=== PATIENT | female | born 1945 | race Caucasian/White ===

== ENCOUNTER → 2019-08-09 11:38 | Outpatient (BNVA) | payer MEDICARE, MEDICAID, SELFPAY | PROVIDERS: Family Provider Internal Medicine; PCP Internal Medicine; Visit Provider Internal Medicine | DX: F03.90 Unspecified dementia, unspecified severity, without behavioral disturbance, psychotic disturbance, mood disturbance, and anxiety (principal); R30.0 Dysuria; K74.60 Unspecified cirrhosis of liver; J44.9 Chronic obstructive pulmonary disease, unspecified; K21.9 Gastro-esophageal reflux disease without esophagitis | CPT/HCPCS: 81001; 87077; 87086; 87186 ==

== ENCOUNTER 2019-11-30 12:03 | Inpatient (IN) | payer MEDICARE, MEDICAID, SELFPAY ==
[2019-11-30] VITALS (65 sets, daily range): BP systolic 83–140; BP diastolic 42–85; PULSE 79–109; RESP 18–22; TEMP 36.9–37.2; O2SAT 95–100; BMI 40.7
--- NOTE | 2019-11-30 12:19 | CT_ITS ---
WS: [id number] CT head wo con* [id number] REASON FOR EXAM: AMS IV CONTRAST ADMINISTERED: None. TOTAL EXAM DLP: 766.[address] scans at [facility] use at least one of these dose optimization techniques: automat ed exposure control; mA and/or kV adjustment per patient size (includes targeted exams where dose is matched to clinical indication); or iterative reconstruction. FINDINGS: The vertebral basilar arteries show heavy arteriosclerotic changes. The ventricles are dilated and there is effacement of the sylvian fissure and sulci throughout the ri ght and left brain. Posterior ventricle is also dilated. The ayesha and cerebellum appear to be normal. The calvarium show no abnormality. The paranasal sinuses are all normal. The mastoid air cells are normal. The orbits show no abnormalities. IMPRESSION: Moderate cerebral atrophy Arteriosclerotic changes of the vertebral basilar arteries.
--- NOTE | 2019-11-30 12:19 | ED_ITS ---
HPI - Altered Mental Status General: Chief Complaint: Altered Mental Status Stated Complaint: AMS/ POSSIBLE UTI Time Seen by Provider: 11/30/19 12:06 History of Present Illness: HPI narrative: 74-year-old female brought in by EMS last known normal per the family reported to EMS was last night she is usually up and around does most of her own things. From what EMS can gather she lives at home and her daughter is been checking in on her they are evidently mo ving back to this area. They feel like she has been having more forgetfulness and onset of dementia signs the last few weeks. She is usually reported to be O2 dependent on 24/7 oxygen EMS that the oxygen was off when they arrived but she is 94% on room air. She was altered on their arrival but would respond to verbal commands her temp was 99. She was laying on 2 soaked urine pads the only complaint they could get out of her at that initial evaluation was a complaint of back pain. They found her facial expressions and smoking pipe maker strength to be normal and there was no evidence or complaint of chest pain from the patient. On arrival here her oxygen sat is 95% on room air. The only thing I could get her to respond to to say that she was cold and she would repeat his reply negative to nearly all questions she did complain of some epigastric/supraumbilical abdominal discomfort. Otherwise I am not able to get really any good verbal history out of her she has a large number of medications which she looked at see the list. There is no family available at this time. A family member at the scene did relate that she has recurrent UTIs and has been treated multiple times. In her medicine bag that she has here I do not see any antibiotics. complaint: altered mental status and confusion Onset (ago): hour(s) (12) Review of Systems General: Reports: ROS unobtainable due to medical condition and ROS unobtainable due to mental status [facility] ED PFS: Medical History (Updated 11/30/19 @ 18:30 by Ana Lu MD) Cirrhosis of liver COPD (chronic obstructive pulmonary disease) Dementia without behavioral disturbance Diabetes mellitus Fibromyalgia Frailty GERD (gastroesophageal reflux disease) Hypertension Surgical History (Updated 11/30/19 @ 18:25 by Ana Lu MD) S/P cataract extraction S/P cholecystectomy Status post carpal tunnel release of both wrists Family History Other Cancer Diabetes Heart disease Social History Smoking and tobacco status: never smoked Alcohol intake: never Marital status: / History of recent travel: No Current gender identity: Female Physical Exam HENMT: COMMON NORMALS: normocephalic, atraumatic, hearing grossly normal bilaterally, external ears normal, EAC's normal and oropharynx normal HEAD & SCALP: normocephalic and atraumatic EXTERNAL EAR: Yes external ears normal EXTERNAL AUDITORY CANAL: EAC's normal Eye: COMMON NORMALS: Equal, round and reactive pupils present, conjunctivae normal and no scleral icterus CONJUNCTIVA: Yes conjunctivae normal PUPIL: Yes Equal, round and reactive pupils present Neck/C-Spine: COMMON NORMALS: full ROM, no lymphadenopathy, supple and no JVD Lymph: LYMPHATIC: no lymphadenopathy noted and no lymphedema noted Resp: COMMON NORMALS: normal respiratory effort, No retractions, No use of accessory muscles and clear to auscultation bilaterally AUSCULTATION: clear to auscultation bilaterally Cardio: COMMON NORMALS: no JVD, regular rate, regular rhythm and No murmurs present (Cardio) RATE: regular rate RHYTHM: regular rhythm GI: COMMON NORMALS: Soft to palpation and No hepatosplenomegaly present AUSCULTATION: Yes normoactive bowel sounds PALPATION: Yes Soft to palpation, Yes Tenderness to palpation present (GI) (Epigastric supraumbilical), No Guarding due to palpation present (GI) and Yes No hepatosplenomegaly present Extremity: COMMON NORMALS: normal to inspection, capillary refill normal, no clubbing, cyanosis or edema, no calf tenderness and no pedal edema Skin: COMMON NORMALS: no rashes or lesions noted GENERAL SKIN EXAM: no rashes or lesions noted Course Vital Signs: Vital signs: Vital Signs Temperature 98.5 F 11/30/19 12:04 Pulse Rate 79 11/30/19 17:48 Respiratory Rate 22 H 11/30/19 17:00 Blood Pressure 122/74 11/30/19 17:00 Pulse Oximetry 99 11/30/19 17:48 MDM - Altered Mental Status MDM Narrative: Medical decision making narrative: Abdomen was distended and somewhat tenderness we ordered a CT because of a creatinine oriented with out contrast radiology read is having fluid in the right lower quadrant unable to distinguish the appendix. She also has some changes around the right kidney this is more consistent with what we had expected. I called back Dr. Garcia and we consulted Dr. Flores. See his notes Dr. Lu also asked that we change the patient to a ICU patient which does seem appropriate and Zosyn was added in addition to the Rocephin she is had already been given. Discussed with Dr. Flores and he will come down see the patient in the emergency room Lab Data: Labs: Lab Results 11/30/19 11/30/19 11/30/19 Range/Units 12:20 12:38 12:45 WBC (4.0-10.0) 10^3/ uL RBC (4.1-5.3) 10^6/u L Hgb (11.5-15.3) g/dL Hct (37.0-47.0) % MCV (81-99) fL MCH (28.0-34.0) pg MCHC (30.0-36.0) g/dL RDW (12.1-15.1) % Plt Count (130-400) 10^3/c mm MPV (7.4-10.4) fL Neut % (Auto) % Lymph % (Auto) % Cowley % (Auto) % Eos % (Auto) % Baso % (Auto) % Neut # (Auto) (1.8-7.7) 10^3/u L Lymph # (Auto) (0.8-4.8) 10^3/u L Cowley # (Auto) (0.2-0.9) 10^3/u L Eos # (Auto) (0.0-0.8) 10^3/u L Baso # (Auto) (0.0-0.1) 10^3/u L Nucleated RBC % (a uto) % Nucleated RBCs # /100WBC Specimen Type Arterial Sample Site Brachial, left ABG pH 7.34 L (7.35-7.45) ABG pCO2 34.3 L (35-45) mmHg ABG pO2 67.2 L (80.0-100.0) mmH g ABG HCO3 18.5 L (22-26) mmol/L ABG O2 Saturation 94.1 ABG Base Excess -6.6 L (-2.0-2.0) mmol/ L Manoj Test Pos A-a O2 Gradient 37.8 H (5-10) mmHg Hematocrit 26.2 L (37-47) % Hgb O2 Saturation 91.6 L (95-100) % Carboxyhemoglobin 1.5 (0.4-20.1) %THgb Methemoglobin 1.2 (0.4-1.5) % Total Hemoglobin 8.5 L (12-16) g/dL Sodium 131.0 (131-143) mmol/L Potassium 4.5 (3.5-5.0) mmol/L Glucose 399.0 H (70-115) mg/dL Ionized Calcium 1.2 (1.1-1.4) mmol/L O2 Delivery Device Room air FiO2 21.0 % Visual Communications Instructor ID cak Chloride (98-107) mmol/L Carbon Dioxide (22-29) mmol/L Anion Gap (5-19) BUN (8-23) mg/dL Creatinine (0.5-0.9) mg/dL POC Glucose 410 (70-110) mg/dL Calculated Osmolal ity (285-295) mOsm/k g Lactate (0.5-2.2) mmol/L Calcium (8.5-10.5) mg/dL Total Bilirubin (0.15-1.2) mg/dL AST (0-32) U/L ALT (0-33) U/L Alkaline Phosphata se (35-105) IU/L Ammonia (11-51) umol/L Creatine Kinase (26-192) U/L Troponin T Baselin e (0-10) ng/mL Troponin T 120 Min jackson (0-10) ng/mL Delta Troponin T (0-10) ABS# Total Protein (6.6-8.7) g/dL Albumin (3.5-5.2) g/dL Globulin (1.3-4.6) g/dL Lipase (13-60) U/L Urine Color Brown (Yellow) Urine Appearance Cloudy (CLEAR) Urine pH 5 (5-7) Ur Specific Gravit y 1.025 (1.005-1.030) Urine Protein 2+ H (Negative) Urine Glucose (UA) 2+ (Normal) Urine Ketones Negative (Negative) Urine Blood 3+ H (Negative) Urine Nitrate Negative (Negative) Urine Bilirubin Neg (NEGATIVE) Urine Urobilinogen Norm (Negative) mg/dL Ur Leukocyte Roxie ase 2+ H (Negative) Urine RBC 40-50 H (0-2) /hpf Urine WBC 55-80 H (0-5) /hpf Ur Squamous Epith Cells 0-4 H (0-5) Amorphous Sediment 3+ Urine Bacteria 1+ H (NONE) Serum Ketones (Negative) 11/30/19 11/30/19 11/30/19 Range/Units 13:02 13:02 13:02 WBC 19.6 H (4.0-10.0) 10^3/ uL RBC 2.77 L (4.1-5.3) 10^6/u L Hgb 8.0 L (11.5-15.3) g/dL Hct 26.5 L (37.0-47.0) % MCV 95.7 (81-99) fL MCH 28.9 (28.0-34.0) pg MCHC 30.2 (30.0-36.0) g/dL RDW 16.1 H (12.1-15.1) % Plt Count 311 (130-400) 10^3/c mm MPV 9.6 (7.4-10.4) fL Neut % (Auto) 76.2 % Lymph % (Auto) 12.0 % Cowley % (Auto) 10.8 % Eos % (Auto) 0.1 % Baso % (Auto) 0.1 % Neut # (Auto) 14.9 H (1.8-7.7) 10^3/u L Lymph # (Auto) 2.4 (0.8-4.8) 10^3/u L Cowley # (Auto) 2.1 H (0.2-0.9) 10^3/u L Eos # (Auto) 0.0 (0.0-0.8) 10^3/u L Baso # (Auto) 0.0 (0.0-0.1) 10^3/u L Nucleated RBC % (a uto) 0 % Nucleated RBCs # 0.0 /100WBC Specimen Type Sample Site ABG pH (7.35-7.45) ABG pCO2 (35-45) mmHg ABG pO2 (80.0-100.0) mmH g ABG HCO3 (22-26) mmol/L ABG O2 Saturation ABG Base Excess (-2.0-2.0) mmol/ L Manoj Test A-a O2 Gradient (5-10) mmHg Hematocrit (37-47) % Hgb O2 Saturation (95-100) % Carboxyhemoglobin (0.4-20.1) %THgb Methemoglobin (0.4-1.5) % Total Hemoglobin (12-16) g/dL Sodium 127 L (131-143) mmol/L Potassium 4.6 (3.5-5.0) mmol/L Glucose 426 H (70-115) mg/dL Ionized Calcium (1.1-1.4) mmol/L O2 Delivery Device FiO2 % Visual Communications Instructor ID Chloride 98 (98-107) mmol/L Carbon Dioxide 18 L (22-29) mmol/L Anion Gap 15.6 (5-19) BUN 44 H (8-23) mg/dL Creatinine 2.0 H (0.5-0.9) mg/dL POC Glucose (70-110) mg/dL Calculated Osmolal ity 280 L (285-295) mOsm/k g Lactate 1.3 (0.5-2.2) mmol/L Calcium 9.0 (8.5-10.5) mg/dL Total Bilirubin 0.7 (0.15-1.2) mg/dL AST 24 (0-32) U/L ALT 10 (0-33) U/L Alkaline Phosphata se 109 H (35-105) IU/L Ammonia (11-51) umol/L Creatine Kinase 15 L (26-192) U/L Troponin T Baselin e (0-10) ng/mL Troponin T 120 Min jackson (0-10) ng/mL Delta Troponin T (0-10) ABS# Total Protein 7.8 (6.6-8.7) g/dL Albumin 3.1 L (3.5-5.2) g/dL Globulin 4.7 H (1.3-4.6) g/dL Lipase 19 (13-60) U/L Urine Color (Yellow) Urine Appearance (CLEAR) Urine pH (5-7) Ur Specific Gravit y (1.005-1.030) Urine Protein (Negative) Urine Glucose (UA) (Normal) Urine Ketones (Negative) Urine Blood (Negative) Urine Nitrate (Negative) Urine Bilirubin (NEGATIVE) Urine Urobilinogen (Negative) mg/dL Ur Leukocyte Roxie ase (Negative) Urine RBC (0-2) /hpf Urine WBC (0-5) /hpf Ur Squamous Epith Cells (0-5) Amorphous Sediment Urine Bacteria (NONE) Serum Ketones (Negative) 11/30/19 11/30/19 11/30/19 Range/Units 13:02 13:02 13:02 WBC (4.0-10.0) 10^3/ uL RBC (4.1-5.3) 10^6/u L Hgb (11.5-15.3) g/dL Hct (37.0-47.0) % MCV (81-99) fL MCH (28.0-34.0) pg MCHC (30.0-36.0) g/dL RDW (12.1-15.1) % Plt Count (130-400) 10^3/c mm MPV (7.4-10.4) fL Neut % (Auto) % Lymph % (Auto) % Cowley % (Auto) % Eos % (Auto) % Baso % (Auto) % Neut # (Auto) (1.8-7.7) 10^3/u L Lymph # (Auto) (0.8-4.8) 10^3/u L Cowley # (Auto) (0.2-0.9) 10^3/u L Eos # (Auto) (0.0-0.8) 10^3/u L Baso # (Auto) (0.0-0.1) 10^3/u L Nucleated RBC % (a uto) % Nucleated RBCs # /100WBC Specimen Type Sample Site ABG pH (7.35-7.45) ABG pCO2 (35-45) mmHg ABG pO2 (80.0-100.0) mmH g ABG HCO3 (22-26) mmol/L ABG O2 Saturation ABG Base Excess (-2.0-2.0) mmol/ L Manoj Test A-a O2 Gradient (5-10) mmHg Hematocrit (37-47) % Hgb O2 Saturation (95-100) % Carboxyhemoglobin (0.4-20.1) %THgb Methemoglobin (0.4-1.5) % Total Hemoglobin (12-16) g/dL Sodium (131-143) mmol/L Potassium (3.5-5.0) mmol/L Glucose (70-115) mg/dL Ionized Calcium (1.1-1.4) mmol/L O2 Delivery Device FiO2 % Visual Communications Instructor ID Chloride (98-107) mmol/L Carbon Dioxide (22-29) mmol/L Anion Gap (5-19) BUN (8-23) mg/dL Creatinine (0.5-0.9) mg/dL POC Glucose (70-110) mg/dL Calculated Osmolal ity (285-295) mOsm/k g Lactate (0.5-2.2) mmol/L Calcium (8.5-10.5) mg/dL Total Bilirubin (0.15-1.2) mg/dL AST (0-32) U/L ALT (0-33) U/L Alkaline Phosphata se (35-105) IU/L Ammonia 34 (11-51) umol/L Creatine Kinase (26-192) U/L Troponin T Baselin e 39 H (0-10) ng/mL Troponin T 120 Min jackson (0-10) ng/mL Delta Troponin T (0-10) ABS# Total Protein (6.6-8.7) g/dL Albumin (3.5-5.2) g/dL Globulin (1.3-4.6) g/dL Lipase (13-60) U/L Urine Color (Yellow) Urine Appearance (CLEAR) Urine pH (5-7) Ur Specific Gravit y (1.005-1.030) Urine Protein (Negative) Urine Glucose (UA) (Normal) Urine Ketones (Negative) Urine Blood (Negative) Urine Nitrate (Negative) Urine Bilirubin (NEGATIVE) Urine Urobilinogen (Negative) mg/dL Ur Leukocyte Roxie ase (Negative) Urine RBC (0-2) /hpf Urine WBC (0-5) /hpf Ur Squamous Epith Cells (0-5) Amorphous Sediment Urine Bacteria (NONE) Serum Ketones Negative (Negative) 11/30/19 11/30/19 Range/Units 14:33 15:14 WBC (4.0-10.0) 10^3/ uL RBC (4.1-5.3) 10^6/u L Hgb (11.5-15.3) g/dL Hct (37.0-47.0) % MCV (81-99) fL MCH (28.0-34.0) pg MCHC (30.0-36.0) g/dL RDW (12.1-15.1) % Plt Count (130-400) 10^3/c mm MPV (7.4-10.4) fL Neut % (Auto) % Lymph % (Auto) % Cowley % (Auto) % Eos % (Auto) % Baso % (Auto) % Neut # (Auto) (1.8-7.7) 10^3/u L Lymph # (Auto) (0.8-4.8) 10^3/u L Cowley # (Auto) (0.2-0.9) 10^3/u L Eos # (Auto) (0.0-0.8) 10^3/u L Baso # (Auto) (0.0-0.1) 10^3/u L Nucleated RBC % (a uto) % Nucleated RBCs # /100WBC Specimen Type Sample Site ABG pH (7.35-7.45) ABG pCO2 (35-45) mmHg ABG pO2 (80.0-100.0) mmH g ABG HCO3 (22-26) mmol/L ABG O2 Saturation ABG Base Excess (-2.0-2.0) mmol/ L Manoj Test A-a O2 Gradient (5-10) mmHg Hematocrit (37-47) % Hgb O2 Saturation (95-100) % Carboxyhemoglobin (0.4-20.1) %THgb Methemoglobin (0.4-1.5) % Total Hemoglobin (12-16) g/dL Sodium (131-143) mmol/L Potassium (3.5-5.0) mmol/L Glucose (70-115) mg/dL Ionized Calcium (1.1-1.4) mmol/L O2 Delivery Device FiO2 % Visual Communications Instructor ID Chloride (98-107) mmol/L Carbon Dioxide (22-29) mmol/L Anion Gap (5-19) BUN (8-23) mg/dL Creatinine (0.5-0.9) mg/dL POC Glucose 430 (70-110) mg/dL Calculated Osmolal ity (285-295) mOsm/k g Lactate (0.5-2.2) mmol/L Calcium (8.5-10.5) mg/dL Total Bilirubin (0.15-1.2) mg/dL AST (0-32) U/L ALT (0-33) U/L Alkaline Phosphata se (35-105) IU/L Ammonia (11-51) umol/L Creatine Kinase (26-192) U/L Troponin T Baselin e (0-10) ng/mL Troponin T 120 Min jackson 36.59 H (0-10) ng/mL Delta Troponin T -2.41 L (0-10) ABS# Total Protein (6.6-8.7) g/dL Albumin (3.5-5.2) g/dL Globulin (1.3-4.6) g/dL Lipase (13-60) U/L Urine Color (Yellow) Urine Appearance (CLEAR) Urine pH (5-7) Ur Specific Gravit y (1.005-1.030) Urine Protein (Negative) Urine Glucose (UA) (Normal) Urine Ketones (Negative) Urine Blood (Negative) Urine Nitrate (Negative) Urine Bilirubin (NEGATIVE) Urine Urobilinogen (Negative) mg/dL Ur Leukocyte Roxie ase (Negative) Urine RBC (0-2) /hpf Urine WBC (0-5) /hpf Ur Squamous Epith Cells (0-5) Amorphous Sediment Urine Bacteria (NONE) Serum Ketones (Negative) Discharge Plan Discharge Patient Disposition: Admitted As Inpatient Admit Provider: Ana Lu Clinical Impression: Acute pyelonephritis, Cirrhosis of liver, GERD (gastroesophageal reflux disease), Dementia without behavioral disturbance, DM2 (diabetes mellitus, type 2), Sepsis, Hyponatremia Condition: Stable Coding Level of Care Code ED Boat Dispatcher for Chg Fwd Exam Comprehensive
--- NOTE | 2019-11-30 12:19 | XR_ITS ---
WS: [id number] XR chest 1V portable [id number] REASON FOR EXAM: dyspnea/cough FINDINGS: Elevation of the right hemidiaphragm. The heart is normal in size. Arteriosclerotic changes in the arch of the aorta. The lung mccormick are well aerated no pneumonia, pleural effusion, pulmonary edema, are pneumothorax. The hilum and apices normal. A scoliotic curve with degenerate changes convex to the right. XR/XR chest 1V portable [id number] IMPRESSION: Eventration of the right hemidiaphragm. Arteriosclerotic changes.
--- NOTE | 2019-11-30 12:19 | CT_ITS ---
WS: [id number] CT abdomen pelvis wo con [id number] REASON FOR EXAM: abd pain IV CONTRAST ADMINISTERED: No contrast was given. The lower lung mccormick show mild infiltrates ; The liver was small no lesions are seen in the liver. The right kidney shows a dilated pelvis and the ureters dilated partially and appears to be peritendinitis involving the right lower quadrant of the abdomen we with suspected ruptured appendix producing these changes. A definite appendix is not well seen. The left abdomen shows only minimal inflammatory changes. The descending colons were normal. A very small infantile uterus is seen The bladder slightly thickened wall The rectum was normal. In the upper abdomen the stomach, spleen, adrenal glands are all normal. Aorta inferior vena cava wer e normal. The left kidney appeared to be normal. TOTAL EXAM DLP: 1291.[address] scans at use at least one of these dose optimization techniques: automat ed exposure control; mA and/or kV adjustment per patient size (includes targeted exams where dose is matched to clinical indication); or iterative reconstruction. CT/CT abdomen pelvis wo con [id number] IMPRESSION: Suspect peritonitis in the right lower abdomen with a suspected ruptured append ix. The right kidney is partially obstructed in the mid ureter area by the inflamma tory changes versus pyelonephritis.
--- NOTE | 2019-11-30 12:20 | ECG_ITS ---
Measurements Intervals [place] Rate: 96 P: 48 SD: 152 QRS: -23 QRSD: 89 T: 29 QT: 356 QTc: 452 SINUS RHYTHM MODERATE VOLTAGE CRITERIA FOR LVH, CONSIDER NORMAL VARIANT [MEETS CRITERIA IN ONE ONE OF: R(aVL), S(V1), R(V5), R(V5/V6)+S(V1)] POSSIBLE ANTERIOR MYOCARDIAL INFARCTION , OF INDETERMINATE AGE [30 ms Q WAVE IN V3 V3/V4, OR R < 0.2 mV IN V4] No previous ECG available for comparison Electronically Signed On 11-30-2019 16:36:13 CDT by Gunnar Paredes M.D. [email or web address]
[2019-11-30 12:41] LABS: Add Urine Microscopic? YES; Bilirubin Urine Neg (NEGATIVE); Blood Urine 3+ (Negative); Glucose Urine UA 2+ (Normal); Ketones Urine Negative (Negative); Leukocyte Esterase Urine 2+ (Negative); Nitrate Urine Negative (Negative); Protein Urine 2+ (Negative); Specific Gravity, Urine 1.025 (1.005-1.030); Urine Appearance Cloudy (CLEAR); Urine Color Brown (Yellow); Urobilinogen Urine Norm (Negative); pH Urine 5 (5-7)
[2019-11-30 12:46] LABS: Amorphous Sediment Urine 3+; Bacteria Urine 1+; RBC Urine 40-50 /hpf (0-2); Squamous Epithelial Cell Urine 0-4 (0-5); WBC Urine 55-80 /hpf (0-5)
[2019-11-30 12:47] LABS: Add Urine Culture? Yes
[2019-11-30 12:50] LABS: ABG PCO2 34.3 mmHg (35-45); ABG PH Result 7.34 (7.35-7.45); Alveolar-Arterial Oxygen Gradi 37.8 mmHg (5-10); Arterial Blood Gas Hematocrit 26.2 % (37-47); Base Excess ABG -6.6 mmol/L (-2.0-2.0); Blood Gas Allen Test Pos; Blood Gas Sample Site Brachial, left; Blood Gas Sample Type Arterial; Carboxyhemoglobin 1.5 %THgb (0.4-20.1); HCO3 ABG 18.5 mmol/L (22-26); HGB O2 Sat 91.6 % (95-100); Ionized Calcium Level - ABG 1.2 mmol/L (1.1-1.4); Methemoglobin 1.2 % (0.4-1.5); Oxygen Device ROOM AIR; Oxygen Saturation ABG 94.1; PO2 ABG 67.2 mmHg (80.0-100.0); Potassium Level - ABG 4.5 mmol/L (3.5-5.0); Total Hemoglobin 8.5 g/dL (12-16)
[2019-11-30 12:50] LABS: Glucose Point of Care 410 mg/dL (70-110)
[2019-11-30 13:13] LABS: Basophils % 0.1 %; Eosinophils % 0.1 %; Hematocrit 26.5 % (37.0-47.0); Lymphocytes # 2.4 10^3/uL (0.8-4.8); Mean Corpuscular HGB Conc 30.2 g/dL (30.0-36.0); Mean Corpuscular Hemoglobin 28.9 pg (28.0-34.0); Mean Corpuscular Volume 95.7 fL (81-99); Mean Platelet Volume 9.6 fL (7.4-10.4); Monocytes # 2.1 10^3/uL (0.2-0.9); Monocytes % 10.8 %; Neutrophils # 14.9 10^3/uL (1.8-7.7); Neutrophils % 76.2 %; Nucleated Red Blood Cells % 0 %; Platelet Count 311 10^3/cmm (130-400); Red Blood Count 2.77 10^6/uL (4.1-5.3); Red Cell Distribution Width 16.1 % (12.1-15.1); White Blood Count 19.6 10^3/uL (4.0-10.0)
[2019-11-30] MEDS: cefTRIAXone 1,000 MG in sodium chloride 0.9% (plus) 50 ML 100 MG IV (13:14)
[2019-11-30 13:20] LABS: Ketone (Acetest) Serum Negative (Negative)
[2019-11-30 13:26] LABS: Lactate (Lactic Acid level) 1.3 mmol/L (0.5-2.2)
[2019-11-30 13:27] LABS: Ammonia 34 umol/L (11-51)
[2019-11-30 13:28] LABS: Alanine Aminotransferase 10 U/L (0-33); Albumin Level 3.1 g/dL (3.5-5.2); Alkaline Phosphatase 109 IU/L (35-105); Anion Gap 15.6 (5-19); Aspartate Amino Transferase 24 U/L (0-32); Blood Urea Nitrogen 44 mg/dL (8-23); Carbon Dioxide 18 mmol/L (22-29); Chloride 98 mmol/L (98-107); Creatine Phosphokinase 15 U/L (26-192); Globulin 4.7 g/dL (1.3-4.6); Glucose 426 mg/dL (65-115); Lipase 19 U/L (13-60); Osmolality Calculated 280 mOsm/kg (285-295); Potassium 4.6 mmol/L (3.5-5.1); Sodium 127 mmol/L (136-145); Total Bilirubin 0.7 mg/dL (0.15-1.2); Total Protein 7.8 g/dL (6.6-8.7)
[2019-11-30 13:29] LABS: Troponin(5th) Baseline 39 ng/mL (0-10)
[2019-11-30] MEDS: insulin regular-human 100 units/1 mL 10 UNIT IVP ×2 (13:34→15:20)
--- NOTE | 2019-11-30 13:51 | PC.NURSE ---
pt placed on 2L supplemental oxygen via nasal cannula
--- NOTE | 2019-11-30 14:20 | ECG_ITS ---
Measurements Intervals [place] Rate: 97 P: 48 CA: 180 QRS: -32 QRSD: 92 T: 51 QT: 358 QTc: 455 SINUS RHYTHM LEFT AXIS DEVIATION [QRS AXIS < -30] MODERATE VOLTAGE CRITERIA FOR LVH, CONSIDER NORMAL VARIANT [MEETS CRITERIA IN ONE OF: R(aVL), S(V1), R(V5), R(V5/V6)+S(V1)] POSSIBLE ANTERIOR MYOCARDIAL INFARCTION , OF INDETERMINATE AGE [30 ms Q WAVE IN V3/V4, OR R < 0.2 mV IN V4] No previous ECG available for comparison Electronically Signed On 11-30-2019 16:37:23 CDT by Gunnar Paredes M.D. [email or web address]
[2019-11-30 14:37] LABS: Glucose Point of Care 430 mg/dL (70-110)
[2019-11-30] MEDS: piperacillin-tazobactam 3.375 GM in sodium chloride 0.9% (plus) 50 ML IV (15:18)
[2019-11-30 15:42] LABS: Troponin 5 2HR 36.59 ng/mL (0-10); Troponin 5 2HR Delta -2.41 ABS# (0-10)
--- NOTE | 2019-11-30 16:27 | P.CONIM_ITS ---
Providers/Reason For Consult Consulting Physican/Specialty*: General Surgery Ben Flores MD Reason for Consult*: Abdominal pain with right pyelonephritis, possible appendicitis by CT. Primary Care Provider: Pilo Alexis MD History of Present Illness History of Present Illness Melba Newman is a 74 year old female who was brought into the emergency room by EMS today for what sounds to be some mental status changes. The patient apparently lives at home by herself. Her daughter has been checking in on her intermittently and feels like her forgetfulness and dementia has been worsening over the past several weeks. The patient tells me that she was brought in today because I was sick. She denies any pain. When asked if she had been having any urinary symptoms she indicated that she has not urinated recently, although she apparently was found at home with urinary incontinence and there were 2 soaked urine pads underneath her. In the emergency room, the patient was found to have right-sided pyelonephritis by CT, but the radiologist was also apparently concerned that there may be an inflammatory process otherwise in the right lower quadrant and raised the possibility of an appendicitis. In looking through a previous office note by Dr. Alexis, it appears the patient was admitted to a facility in [place] about a month and a half ago with pyelonephritis. Review of Systems General: Reports: 10 or more systems reviewed and unremarkable except in HPI and below (Unable to obtain completely due to the patient's altered mental status) Meds/Allergies Home Medications and Allergies Home Medications Medication Instructions Recorded Confirmed Last Taken Type duloxetine 30 mg capsule,delayed 60 mg PO DAILY cap 06/23/19 11/30/19 Unknown History release omeprazole 20 mg capsule,delayed 20 mg PO DAILY #30 cap 09/21/19 11/30/19 Unknown Rx release albuterol sulfate 90 mcg/actuation 2 puff INHALATION Q6H PRN #8.5 gm 09/28/19 11/30/19 Unknown Rx aerosol inhaler allopurinol 100 mg tablet 100 mg PO DAILY #30 tab 09/28/19 11/30/19 Unknown Rx canagliflozin 300 mg tablet 300 mg PO QAM #30 tab 09/28/19 11/30/19 Unknown Rx levothyroxine 150 mcg capsule 150 mcg PO DAILY #30 cap 09/28/19 11/30/19 Unknown Rx liraglutide 0.6 mg/0.1 mL (18 mg/3 1.8 mg SUBCUT Q24H #9 ml 09/28/19 11/30/19 Unknown Rx mL) subcutaneous pen injector oxybutynin chloride 5 mg tablet 5 mg PO DAILY #30 tab 09/28/19 11/30/19 Unknown Rx spironolactone 25 mg tablet 25 mg PO DAILY #30 tab 09/28/19 11/30/19 Unknown Rx ferrous sulfate 325 mg (65 mg 325 mg PO DAILY #30 tab 10/16/19 11/30/19 Unknown Rx iron) tablet insulin glargine 100 unit/mL 40 unit SUBCUT BID #10 ml 10/16/19 11/30/19 Unknown Rx subcutaneous solution pen needle, diabetic 31 gauge x #100 each 10/16/19 11/30/19 Unknown Rx 11/10 gabapentin 800 mg tablet 800 mg PO TID #90 tab 10/23/19 11/30/19 Unknown Rx metoprolol tartrate 50 mg tablet 12.5 mg PO BID #60 tab 11/10/19 11/30/19 Unknown Rx Adult Aspirin Regimen 81 mg PO DAILY 11/30/19 11/30/19 Unknown History Humalog KwikPen Insulin See Rx Instructions .ROUTE .COMPLEX 11/30/19 11/30/19 Unknown History Allergies Allergy/AdvReac Type Severity Reaction Status Date / Time celecoxib [From Celebrex] Allergy Intermediate confusion Verified 10/16/19 10:44 meperidine [From Demerol] Allergy Unknown Verified 10/16/19 10:44 theophylline Allergy Unknown Verified 10/16/19 10:44 PFSH Acute PFSH: Medical History (Updated 11/30/19 @ 16:35 by Ben Flores MD) Cirrhosis of liver COPD (chronic obstructive pulmonary disease) Dementia without behavioral disturbance GERD (gastroesophageal reflux disease) Hypertension Family History Other Cancer Diabetes Heart disease Social History Smoking and tobacco status: never smoked Alcohol intake: never Marital status: / History of recent travel: No Current gender identity: Female Vitals/I&O/Wt Last Vital Signs Temp 98.5 F 11/30/19 12:04 Pulse 100 11/30/19 14:36 Resp 18 11/30/19 14:36 BP 120/52 11/30/19 14:36 Pulse Ox 98 11/30/19 14:36 11/30/19 11/30/19 11/30/19 06:59 14:59 22:59 Intake Total 50 / 50 Balance 50 / 50 Weight last 48 hrs Weight 245 lb Physical Exam Narrative: EXAM NARRATIVE: The patient was encountered in her room in the emergency room. She keeps her eyes closed during the interview but tries to answer questions, although not always seemingly appropriately. There are no obvious carotid bruits. The lungs are clear anteriorly. The heart is regular but there is a systolic murmur best heard at the right upper sternal border. The abdomen is obese and reveals few bowel sounds but is soft. The patient does have more tenderness along the right side of her abdomen but no evidence of peritonitis. She seems to be most tender laterally and somewhat posteriorly on the right flank. No obvious masses are palpated. The extremities reveal no obvious edema. Urinary Catheter Management^: Chow: Cath Placed During This Visit: yes Urinary Catheter Date of Insertion: 11/30/19 Urinary Catheter Time of Insertion: 12:25 Data Micro: Micro: Microbiology 11/30/19 12:57 Blood Culture - Pr eliminary Blood [facility] 11/30/19 13:02 Blood Culture - Pr eliminary Blood SPE[facility]EN [facility] Imaging^: CT Abd/Pel: Radiologist's impression: CT abdomen/pelvis 11/30/2019 iMPRESSION: Suspect peritonitis in the right lower abdomen with a suspected ruptured appendix. The right kidney is partially obstructed in the mid ureter area by the inflammatory changes versus pyelonephritis. A&P Assessment and plan (1) Abdominal pain: I reviewed the CT. The patient's are consistent with right-sided pyelonephritis. I think I can visualize the appendix and I do not think the appendix is anything to do with her current presentation. She certainly does not have evidence of peritonitis that would make me think she needs to be in the operating room today. I will be happy to continue following the patient. We will see how she does on broad-spectrum antibiotics to start. Status: Acute (2) Abnormal CT of the abdomen: See above. Status: Acute Consult Attestations Medical Necessity Statement: See admitting service's notation. Coding Level of Care Code Acute Biomedical Equipment Specialist for [facility] Diagnoses Abdominal pain R10.[address] of the abdomen R93.5
--- NOTE | 2019-11-30 18:01 | PM.HP ---
Providers/Chief Complaint Admitting Physician: Ana Lu MD Primary Care Provider: Pilo Alexis MD Chief Complaint: AMS/ POSSIBLE UTI History of Present Illness Melba Newman is a 74 year old female with PMH DM on insulin, multiple medications including invokana with recent h/o UTI and pyelonephritis brought to the ER today with c/o AMS that was noted by family when they went in to check on her. No other history is available at this time and patient is unable to participate in history taking when seen at 3pm. Diagnostics in the ER are notable for leukocytosis, + UA, Annita with cr 3.0, tachycardia, CT abdomen with possible R side pyelopnephritis, BS 426 without anion gap, mild metabolic acidosis. There was suspicion for perforated appendicitis for which surgery consult has been obtained from ER Review of Systems General: Reports: ROS unobtainable due to mental status Medications/Allergies Home Medications Medication Instructions Recorded Confirmed Last Taken Type duloxetine 30 mg capsule,delayed 60 mg PO DAILY cap 06/23/19 11/30/19 Unknown History release omeprazole 20 mg capsule,delayed 20 mg PO DAILY #30 cap 09/21/19 11/30/19 Unknown Rx release albuterol sulfate 90 mcg/actuation 2 puff INHALATION Q6H PRN #8.5 gm 09/28/19 11/30/19 Unknown Rx aerosol inhaler allopurinol 100 mg tablet 100 mg PO DAILY #30 tab 09/28/19 11/30/19 Unknown Rx canagliflozin 300 mg tablet 300 mg PO QAM #30 tab 09/28/19 11/30/19 Unknown Rx levothyroxine 150 mcg capsule 150 mcg PO DAILY #30 cap 09/28/19 11/30/19 Unknown Rx liraglutide 0.6 mg/0.1 mL (18 mg/3 1.8 mg SUBCUT Q24H #9 ml 09/28/19 11/30/19 Unknown Rx mL) subcutaneous pen injector oxybutynin chloride 5 mg tablet 5 mg PO DAILY #30 tab 09/28/19 11/30/19 Unknown Rx spironolactone 25 mg tablet 25 mg PO DAILY #30 tab 09/28/19 11/30/19 Unknown Rx ferrous sulfate 325 mg (65 mg 325 mg PO DAILY #30 tab 10/16/19 11/30/19 Unknown Rx iron) tablet insulin glargine 100 unit/mL 40 unit SUBCUT BID #10 ml 10/16/19 11/30/19 Unknown Rx subcutaneous solution pen needle, diabetic 31 gauge x #100 each 10/16/19 11/30/19 Unknown Rx 5/16 gabapentin 800 mg tablet 800 mg PO TID #90 tab 10/23/19 11/30/19 Unknown Rx metoprolol tartrate 50 mg tablet 12.5 mg PO BID #60 tab 11/10/19 11/30/19 Unknown Rx Adult Aspirin Regimen 81 mg PO DAILY 11/30/19 11/30/19 Unknown History Humalog KwikPen Insulin See Rx Instructions .ROUTE .COMPLEX 11/30/19 11/30/19 Unknown History Allergies Allergy/AdvReac Type Severity Reaction Status Date / Time celecoxib [From Celebrex] Allergy Intermediate confusion Verified 10/16/19 10:44 meperidine [From Demerol] Allergy Unknown Verified 10/16/19 10:44 theophylline Allergy Unknown Verified 10/16/19 10:44 PFSH Acute PFSH: Medical History Cirrhosis of liver COPD (chronic obstructive pulmonary disease) Dementia without behavioral disturbance GERD (gastroesophageal reflux disease) Hypertension Surgical History (Updated 11/30/19 @ 18:25 by Ana Lu MD) S/P cataract extraction S/P cholecystectomy Status post carpal tunnel release of both wrists Family History Other Cancer Diabetes Heart disease Social History Smoking and tobacco status: never smoked Alcohol intake: never Marital status: / History of recent travel: No Current gender identity: Female Vitals/I&O/Wt Last Vital Signs Temp 98.5 F 11/30/19 12:04 Pulse 79 11/30/19 17:48 Resp 22 H 11/30/19 17:00 BP 122/74 11/30/19 17:00 Pulse Ox 99 11/30/19 17:48 11/30/19 11/30/19 11/30/19 06:59 14:59 22:59 Intake Total 50 / 50 50 / 100 Balance 50 / 50 50 / 100 Weight last 48 hrs Weight 111.13 kg Physical Exam Narrative: EXAM NARRATIVE: GEN: Lethargic, obtunded, wakes up to calling name but unable to answer any questions meaningfully HEENT: pupils B/L normal size and equally reactive CVS: S1S2 N, no added sounds RS: CTA B/L anteriorly Abd: Soft, nt/nd , bs+ PUBLIC HEALTH PROFESSOR: obtunded, does not follow commands but moving all extremities in bed EXT: multiple healed excoriations present over body . Urinary Catheter Management^: Chow: Cath Placed During This Visit: yes Urinary Catheter Date of Insertion: 11/30/19 Urinary Catheter Time of Insertion: 12:25 Data : 11/30/19 13:02 11/30/19 13:02 Micro: Microbiology 11/30/19 12:57 Blood Culture - Preliminary Blood SPECIMEN COLLECTED 11/30/19 13:02 Blood Culture - Preliminary Blood SPECIMEN COLLECTED A&P Assessment and plan (1) Sepsis: Status: Acute Qualifiers: Sepsis type: sepsis due to unspecified organism Sepsis acute organ dysfunction status: with acute organ dysfunction Severe sepsis acute organ dysfunction type: encephalopathy Qualified Code(s): A41.9 - Sepsis, unspecified organism; R65.20 - Severe sepsis without septic shock; G93.40 - Encephalopathy, unspecified (2) Pyelonephritis: Status: Acute (3) DM2 (diabetes mellitus, type 2): Status: Acute (4) Metabolic acidosis: Status: Acute (5) COPD (chronic obstructive pulmonary disease): Status: Acute (6) GERD (gastroesophageal reflux disease): Status: Acute (7) Cirrhosis of liver: Status: Acute (8) Dementia without behavioral disturbance: Status: Acute Additional A&P Information Admit to ICU 1. Sepsis: Meets criteria with tachycardia, leukocytosis, source of infection and encephalopathy Most likely appears to be related to pyelonephritis Ct abomen raising concern for possible appendicitis, surgical consult placed Empiric Zosyn for now, Per previous cx scanned in system from September, urine PCR appears to have been positive for E.fecalis, which is mostly amp-s. Note made of fungemia on PCP's note however no cx data available. Monitor closely for now, if starts to worsen in spite of zosyn or hemodynamically unstable, will add caspofungin + vancomycin empirically Blood cx currently sent and pending IVF NS @ 75cc/hr 2. Encephalopathy most likely secondary to sepsis CT head without acute findings 3. DM on insulin - on high dose sliding scale for now Normal anion gap metabolic acidosis, less likely to be DKA Continue to monitor 4. ANNITA 2/2 sepsis and pyelonephritis : IVF hydration, strict I/O monitoring 4. reported h/o dementia 5.H/o Cirrhosis 6. h/o HTN: hold antihypertensives for now given sepsis, monitor closely DVT ppx: lovenox Full code Attestations Medical Necessity Statement*: >2 midnight admission for sepsis with encephalopathy, ANNITA, need for iv abx and hydration Coding Level of Care Code Acute Child And Adolescent Psychiatrist for [facility] Fwd Diagnoses Sepsis A41.9; R65.20; G93.40 Sepsis type: sepsis due to unspecified organism Sepsis acute organ dysfunction status: with acute organ dysfunction Severe sepsis acute organ dysfunction type: encephalopathy Pyelonephritis N12 DM2 (diabetes mellitus, type 2) E11.9 Metabolic acidosis E87.2 COPD (chronic obstructive pulmonary disease) J44.9 GERD (gastroesophageal reflux disease) K21.9 Cirrhosis of liver K74.60 Dementia without behavioral disturbance F03.90
--- NOTE | 2019-11-30 18:20 | ECG_ITS ---
Measurements Intervals [place] Rate: 101 P: 50 WA: 171 QRS: -33 QRSD: 90 T: 60 QT: 354 QTc: 460 SINUS TACHYCARDIA LEFT AXIS DEVIATION [QRS AXIS < -30] MINIMAL VOLTAGE CRITERIA FOR LVH, CONSIDER NORMAL VARIANT POSSIBLE ANTERIOR MYOCARDIAL INFARCTION , OF INDETERMINATE AGE Compared to ECG 11/30/2019 16:26:00 Sinus rhythm no longer present Myocardial infarct finding still present Electronically Signed On 12-01-2019 18:08:21 CDT by Margarita Brian M.D. [email or web address]
[2019-11-30 18:37] LABS: Thyroid Stimulating Hormone 0.79 uIU/mL (0.27-4.20)
--- NOTE | 2019-11-30 18:44 | PC.NURSE ---
Attempted to call report at 1728 after waiting 2 hours for room to be ready. Attempted for the 2nd time at 181, was told the nurse taking report was not on the floor, told to call back in 5 minutes. Attempted for the third time at 1826 and told the nurse still had not returned to the floor and the room was not ready, that the nurse would call back to take report. Nurse called to take report at 1841 and was asked to waiting 5 minutes to bring patient as she needed time to document on her patients currently on the floor.
--- NOTE | 2019-11-30 18:59 | PC.NURSE ---
Pt taken to floor by previous shift nurse.
[2019-11-30] MEDS: sodium chloride 0.9% 1,000 ML 100 ML IV (19:34)
[2019-11-30 19:41] LABS: Glucose Point of Care 348 mg/dL (70-110)
[2019-11-30] MEDS: enoxaparin 30 mg/0.3 mL Syringe SUBCUT (19:46)
[2019-11-30 19:55] LABS: Troponin 5 6HR 31.13 ng/mL (0-10)
[2019-11-30 20:00] LABS: Troponin 5 6HR Delta -5.46 ng/L (0-12)
--- NOTE | 2019-11-30 21:22 | PC.NURSE ---
NURSE RESCHEDULED ZOSYN. TIME BASED OFF OF LAST DOSE GIVEN IN THE ER. NEXT DOSE DUE AT 0000 ON 12/01/2019 PER REQUEST FOR ZOSYN Q8H BY DR GUIDRY.
[2019-11-30 21:25] LABS: Glucose Point of Care 334 mg/dL (70-110)
--- NOTE | 2019-11-30 22:23 | PC.NURSE ---
urine drained from patton bag. looks like stool sedimentation in the urine. notified of findings.
[2019-11-30 23:20] LABS: Alanine Aminotransferase 10 U/L (0-33); Alkaline Phosphatase 101 IU/L (35-105); Aspartate Amino Transferase 26 U/L (0-32); Blood Urea Nitrogen 46 mg/dL (8-23); Calcium 9.3 mg/dL (8.5-10.5); Carbon Dioxide 17 mmol/L (22-29); Chloride 103 mmol/L (98-107); Glucose 232 mg/dL (65-115); Osmolality Calculated 277 mOsm/kg (285-295); Sodium 131 mmol/L (136-145); Total Bilirubin 0.6 mg/dL (0.15-1.2)
[2019-11-30 23:57] LABS: Add Urine Culture? Yes; Bacteria Urine 4+; Bilirubin Urine Neg (NEGATIVE); Blood Urine 3+ (Negative); Glucose Urine UA 2+ (Normal); Ketones Urine Negative (Negative); Leukocyte Esterase Urine 2+ (Negative); Nitrate Urine Negative (Negative); Protein Urine 2+ (Negative); RBC Urine >100 /hpf (0-2); Specific Gravity, Urine 1.025 (1.005-1.030); Urine Appearance Cloudy (CLEAR); Urine Color Brown (Yellow); Urobilinogen Urine Norm (Negative); WBC Urine >100 /hpf (0-5); pH Urine 5 (5-7)
[2019-12-01] VITALS (101 sets, daily range): BP systolic 75–147; BP diastolic 36–87; PULSE 95–117; RESP 16–24; TEMP 36.8–38.9; O2SAT 78–100
--- NOTE | 2019-12-01 00:43 | PC.NURSE ---
2320 at bedside. verbal order for new test from Chow to be sent to lab. nurse collected and sent to lab at 2337.
[2019-12-01] MEDS: piperacillin-tazobactam 3.375 GM in sodium chloride 0.9% (plus) 50 ML IV ×3 (01:01→16:51)
[2019-12-01] MEDS: acetaminophen 325 mg Tablet 650 MG PO (01:46)
--- NOTE | 2019-12-01 01:52 | PC.NURSE ---
patient woke up yelling that she needed to pee and wanted to get out of the bed. informed the patient that she had a catheter in her bladder and she could just go pee. patient continued to throw blankets off her and try to get out of bed. patient is confused on where she is. patient states that she is at her mom and dads house and that i am her daughter. nurse attempted to reoriented patient without success . nurse checked patients temperature. 101.2 auxiliary reading. Tylenol given per PRN order for fever. thick blanket removed and sheet left for patient comfort. will continue to monitor.
--- NOTE | 2019-12-01 03:08 | PC.NURSE ---
nurse entered room to patient yelling get me out of here now! patient had ripped IV out, pulling off her gown, and attempting to get out of bed. nurse attempted to calm patient down by reorienting patient to surroundings. patient is able to state that she is at the hospital, and thinks that hospital staff is her family. while starting a new IV patient yelled i am going to punch the shit out of you. nurse explained that patient needed IV so that she could get the medications she needed. patient stated i am going to call my nut sheller because they are not taking care of me. i am going to kyle the heck out of this place. nurse attempted to reorient the patient on the interventions being done to care for patient. patient was not able to comprehend what nurse was saying. called and updated on patient condition and IV being pulled out. verbal order for Zyprexa 10mg IM ONCE for patient safety.
[2019-12-01] MEDS: OLANZapine 10 mg VIAL IM (03:26)
[2019-12-01 05:26] LABS: Basophils % 0.2 %; Eosinophils # 0.1 10^3/uL (0.0-0.8); Eosinophils % 0.5 %; Hematocrit 23.3 % (37.0-47.0); Hemoglobin 7.1 g/dL (11.5-15.3); Lymphocytes # 2.5 10^3/uL (0.8-4.8); Lymphocytes % 17.3 %; Mean Corpuscular HGB Conc 30.5 g/dL (30.0-36.0); Mean Corpuscular Hemoglobin 29.2 pg (28.0-34.0); Mean Corpuscular Volume 95.9 fL (81-99); Mean Platelet Volume 9.5 fL (7.4-10.4); Monocytes # 1.8 10^3/uL (0.2-0.9); Monocytes % 12.3 %; Neutrophils # 10.1 10^3/uL (1.8-7.7); Neutrophils % 69.1 %; Nucleated Red Blood Cells % 0 %; Platelet Count 275 10^3/cmm (130-400); Red Blood Count 2.43 10^6/uL (4.1-5.3); Red Cell Distribution Width 16.6 % (12.1-15.1); White Blood Count 14.6 10^3/uL (4.0-10.0)
[2019-12-01 05:36] LABS: Alanine Aminotransferase 8 U/L (0-33); Albumin Level 2.7 g/dL (3.5-5.2); Alkaline Phosphatase 89 IU/L (35-105); Aspartate Amino Transferase 21 U/L (0-32); Blood Urea Nitrogen 45 mg/dL (8-23); Calcium 8.7 mg/dL (8.5-10.5); Carbon Dioxide 18 mmol/L (22-29); Chloride 103 mmol/L (98-107); Globulin 4.3 g/dL (1.3-4.6); Glucose 173 mg/dL (65-115); Osmolality Calculated 276 mOsm/kg (285-295); Sodium 132 mmol/L (136-145); Total Bilirubin 0.6 mg/dL (0.15-1.2)
[2019-12-01] MEDS: sodium chloride 0.9% 1,000 ML 100 ML IV (05:59)
[2019-12-01 06:05] LABS: Estmated Average Glucose 232; Hemoglobin A1C 9.7 % (4.0-6.0)
--- NOTE | 2019-12-01 07:43 | PM.PN ---
Subjective Subjective: Interval history: The patient denies any pain currently. She says she is thirsty. She was able to tell me that she was having lower abdominal pain before she came into the hospital but it is completely gone now. The patient says that her pain went away right away. Vitals/I&O/Wt Last Vital Signs Temp 98.8 F 12/01/19 04:15 Pulse 101 H 12/01/19 04:15 Resp 20 H 12/01/19 04:15 BP 89/42 12/01/19 04:15 Pulse Ox 94 12/01/19 04:15 11/30/19 12/01/19 12/01/19 22:59 06:59 14:59 Intake Total 65 / 1165 1050 / 1165 Output Total 175 / 825 650 / 825 Balance -110 / 340 400 / 340 Weight last 48 hrs Weight 245 lb Physical Exam Narrative: EXAM NARRATIVE: The patient seems much more alert today, but still is not answering all questions appropriately. She told me that my mother and me are the same age. Her abdomen reveals bowel sounds today and is soft. She has minimal tenderness and her exam is clearly improved. The patient is borderline tachycardic and her blood pressure is soft. Urinary Catheter Management^: Chow: Cath Placed During This Visit: yes Reason for Continuing Indwelling Catheter: Accurate Measurement of Urinary Output in Critically Ill Patients Urinary Catheter Date of Insertion: 11/30/19 Urinary Catheter Time of Insertion: 12:25 Data : 12/01/19 04:48 12/01/19 04:48 Micro: Microbiology 11/30/19 12:57 Blood Culture - Preliminary Blood SPECIMEN COLLECTED 11/30/19 13:02 Blood Culture - Preliminary Blood SPECIMEN COLLECTED A&P Assessment and plan (1) Anemia: The patient was anemic on presentation, but it has become more apparent with rehydration. Given the patient's borderline tachycardia and soft blood pressure, I think she would benefit from a transfusion. Will order 2 units of packed red blood cells. Status: Acute (2) Abdominal pain: Much improved. Continue broad-spectrum antibiotics. Status: Acute Attestations Medical Necessity Statement*: See admitting service's notation. Coding Level of Care Code Acute Water Main Installer Helper for [facility] Diagnoses Anemia D64.9 Abdominal pain R10.9
[2019-12-01 07:53] LABS: Glucose Point of Care 192 mg/dL (70-110)
[2019-12-01] MEDS: levothyroxine 150 mcg Tablet PO (09:21)
--- NOTE | 2019-12-01 10:11 | PC.RESP ---
Pulmonary Rehab information sent to patient.
--- NOTE | 2019-12-01 10:12 | USCV_ITS ---
Melba Newman Age: 74 Gender: F : 1945 Exam Date: 12/01/2019 14:30 Ordering Phys: Ana Lu MD Technologist: Harleen Medina Exam Location: [facility] [place] Indication: EST EF BP: 128 / 49 HR: 105 Rhythm: Sinus Technical Quality: Adequate MEASUREMENTS (Male / Female) Normal Values 2D ECHO LV Diastolic Diameter PLAX 4.3 cm 4.2 - 5.9 / 3.9 - 5.3 cm LV Systolic Diameter PLAX 3.0 cm LV Chamber Size 3.7 cm IVS Diastolic Thickness 1.2 cm 0.6 - 1.0 / 0.6 - 0.9 cm IVS Systolic Thickness 1.3 cm LVPW Diastolic Thickness 1.5 cm 0.6 - 1.0 / 0.6 - 0.9 cm LVPW Systolic Thickness 1.8 cm RV Chamber Size 2.6 cm LVOT Diameter 2.0 cm LV Ejection Fraction 2D Teich 59.3 % LV Ejection Fraction MOD 2C 70.3 % LV Ejection Fraction 2C AL 69.6 % LA Diameter 4.6 cm LA Width 3.3 cm LA Height 4.5 cm RA Width 3.0 cm RA Height 2.4 cm Aorta at Sinotubular Diameter 2.2 cm M-MODE LV Diastolic Diameter MM 5.7 cm 4.2 - 5.9 / 3.9 - 5.3 cm LV Systolic Diameter MM 3.5 cm LV Ejection Fraction MM Teich 69.5 % IVS Diastolic Thickness MM 1.1 cm 0.6 - 1.0 / 0.6 - 0.9 cm IVS Systolic Thickness MM 1.6 cm LVPW Diastolic Thickness MM 0.9 cm 0.6 - 1.0 / 0.6 - 0.9 cm LVPW Systolic Thickness MM 1.6 cm Aortic Annulus Diameter 3.1 cm LA Ao Ratio MM 1.5 MV E Point Septal Separation 0.3 cm DOPPLER AV Peak Velocity 197.0 cm/s LVOT Peak Velocity 134.0 cm/s AV Area Cont Eq vti 2.4 cm squared AV Area Cont Eq pk 2.2 cm squared MV Area PHT 6.5 cm squared Mitral E to A Ratio 4.4 MV E' Velocity 10.0 cm/s Mitral E to MV E' Ratio 11.2 Mitral E to LV E' Lateral Ratio 16.6 Mitral E to LV E' Septal Ratio 8.4 TR Peak Velocity 317.0 cm/s TR Peak Gradient 40.2 mmHg TV Peak E Velocity 70.0 cm/s Right Atrial Pressure 3.0 mmHg Pulmonary Artery Systolic Pressu 43.2 mmHg PV Peak Velocity 101.0 cm/s RV Acceleration Time 0.2 s RV Ejection Time 0.3 s RV AcT/ET 0.5 FINDINGS Left Ventricle Normal left ventricular cavity size. No regional wall motion abnormalities. Normal left ventricular systolic function. Left ventricular ejection fraction is estimated at 55 %. Grade II/IV diastolic dysfunction, moderately elevated filling pressures. Right Ventricle Normal right ventricular size. Moderate pulmonary hypertension, RVSP 43.2 mmHg. Right Atrium The right atrium is normal in size. Left Atrium The left atrium is normal in size. Mitral Valve Moderately thickened mitral valve. Moderate mitral annular calcification. No mitral valve stenosis. No mitral valve regurgitation. Aortic Valve Moderate aortic valve calcification. No aortic valve stenosis. No aortic valve regurgitation. Tricuspid Valve Structurally normal tricuspid valve without significant stenosis or regurgitation. Pulmonary artery systolic pressure is normal. Pulmonic Valve Structurally normal pulmonic valve without significant stenosis. There is no pulmonic regurgitation. Pericardium Normal pericardium without effusion. Aorta Normal ascending aorta dimension. CONCLUSIONS 1-Normal left ventricular cavity size. No regional wall motion abnormalities. Normal left ventricular systolic function. Left ventricular ejection fraction is estimated at 55 %. Grade II/IV diastolic dysfunction, moderately elevated filling pressures. 2-Moderately thickened mitral valve. Moderate mitral annular calcification. No mitral valve stenosis. No mitral valve regurgitation. 3-Moderate aortic valve calcification. No aortic valve stenosis. No aortic valve regurgitation. 4-Normal right ventricular size. Moderate pulmonary hypertension, RVSP 43.2 mmHg. 5-There is no pericardial effusion. 6-Right atrial pressure is around 5 mm of mercury. 7-There are no prior echocardiogram studies to compare. Sandeep Espinoza MD (Electronically Signed) Final Date: 01 December 2019 18:52 S
--- NOTE | 2019-12-01 10:20 | US_ITS ---
WS: [id number] Abdominal ultrasound, limited examination. HISTORY: Evaluate RIGHT hydronephrosis. COMPARISON: CT 11/30/2019. RIGHT kidney is normal size at 11.8 cm in length. There is moderate hydronephrosis, similar to the pr ior examination. No adjacent fluid collection. Unable to evaluate the bladder or the LEFT kidney due to patient discomfort. US/US abdomen limited [id number] IMPRESSION: Moderate hydronephrosis RIGHT kidney similar to the prior examination of 11/30/19.
[2019-12-01] MEDS: lactated ringers 1,000 ML 100 ML IV ×2 (11:00→18:55)
[2019-12-01 11:12] LABS: Glucose Point of Care 147 mg/dL (70-110)
--- NOTE | 2019-12-01 12:06 | PM.PN ---
Subjective Subjective: Interval history: Patient seen and examined this morning. No significant improvement in mental status. She continues to be confused and obtunded. White blood cell count at 14 from 19 yesterday. Hemoglobin at 7 from 8. Sodium improved with hydration to 132 today. Creatinine unchanged at 2.3. Glucose 173. Hemoglobin A1c 9.7. Troponin series negative. Blood pressure reviewed from overnight and early this morning shows 89/42 with significant tachycardia. Saturating 97% on 2 L/min nasal cannula. Unable to tell me if she is in any pain at this time but noted to be morning. Medications: Reviewed: Yes Vitals/I&O/Wt Last Vital Signs Temp 98.3 F 12/01/19 08:00 Pulse 106 H 12/01/19 08:00 Resp 18 12/01/19 08:00 BP 147/87 12/01/19 08:00 Pulse Ox 97 12/01/19 08:00 11/30/19 12/01/19 12/01/19 22:59 06:59 14:59 Intake Total 65 / 115 1050 / 1165 60 / 60 Output Total 175 / 175 650 / 825 Balance -110 / -60 400 / 340 60 / 60 Weight last 48 hrs Weight 111.13 kg Physical Exam Narrative: EXAM NARRATIVE: GEN: Awake, obtunded, confused. Able to state she is in the hospital and that she is cold, but otherwise not answering any more questions. HEENT pupils bilaterally normal size and normally reacting. CVS: S1S2 N RS: CTA B/L Abd: Soft, nt/nd , bs+ WET PRIMER POWDER BLENDER: Unable to assess given mental obtundation. However patient moving all 4 extremities while laying in bed. Urinary Catheter Management^: Chwo: Cath Placed During This Visit: yes Reason for Continuing Indwelling Catheter: Accurate Measurement of Urinary Output in Critically Ill Patients Urinary Catheter Date of Insertion: 11/30/19 Urinary Catheter Time of Insertion: 12:25 Data : 12/01/19 04:48 12/01/19 04:48 Micro: Microbiology 11/30/19 12:20 Urine Culture - Preliminary Urine,Clean Catch Yeast species 11/30/19 12:57 Blood Culture - Preliminary Blood SPECIMEN COLLECTED 11/30/19 13:02 Blood Culture - Preliminary Blood SPECIMEN COLLECTED A&P Assessment and plan (1) Sepsis: Status: Acute Qualifiers: Sepsis type: sepsis due to unspecified organism Sepsis acute organ dysfunction status: with acute organ dysfunction Severe sepsis acute organ dysfunction type: encephalopathy Qualified Code(s): A41.9 - Sepsis, unspecified organism; R65.20 - Severe sepsis without septic shock; G93.40 - Encephalopathy, unspecified (2) Pyelonephritis: Status: Acute (3) DM2 (diabetes mellitus, type 2): Status: Acute (4) Metabolic acidosis: Status: Acute (5) COPD (chronic obstructive pulmonary disease): Status: Acute (6) GERD (gastroesophageal reflux disease): Status: Acute (7) Cirrhosis of liver: Status: Acute (8) Dementia without behavioral disturbance: Status: Acute Additional A&P Information Admit to ICU 1. Sepsis: Meets criteria with tachycardia, leukocytosis, source of infection and encephalopathy Most likely appears to be related to pyelonephritis Ct abomen raising concern for possible appendicitis, surgical consult appreciated. Clinically does not appear to be appendicitis at this time. Empiric Zosyn to continue., Per previous cx scanned in system from September, urine PCR appears to have been positive for E.fecalis, which is mostly amp-s. Further records requested today from [facility], mainly pertaining to urine and blood cultures. Note made of fungemia on PCP's note however no cx data available. Requested from [facility]. This morning patient's blood pressure noted to be 89/42, with no gross improvement in mental status. Add on IV vancomycin and also IV fluconazole empirically at this time given history of fungemia. Urine culture thus far returned with staph aureus and Staph epidermidis species. I am not certain if these represent specimen collected from a contaminated Chow, however if this turns out to be true staph aureus infection in the urine, then staph aureus bacteremia needs to be ruled out. Blood cx currently sent and pending, thus far no growth. IVF LR@ 75cc/hr Repeat ultrasound to assess for hydronephrosis and worsening obstruction given uptrending creatinine to 2.[address] abdomen yesterday makes note of dilated right renal pelvis and ureters dilated partially. 2. Encephalopathy most likely secondary to sepsis CT head without acute findings. No signs of abscess If blood cx returns positive for fungemia, then will need opthalmology assessment to r/o endopthalmitis +/- LP 3. DM on insulin - on high dose sliding scale for now Normal anion gap metabolic acidosis, less likely to be DKA Continue to monitor 4. ANNITA 2/2 sepsis and pyelonephritis : IVF hydration, strict I/O monitoring 4. reported h/o dementia 5.H/o Cirrhosis 6. 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
--- NOTE | 2019-12-01 12:37 | P.ANESASSM_ITS ---
Pre-Anesthetic Assessment Pre-Anesthetic Assessment: Height/Weight: Height 1.65 m Weight 111.13 kg Temp Pulse Resp BP Pulse Ox 98.3 F 106 H 18 147/87 97 12/01/19 08:00 12/01/19 08:00 12/01/19 08:00 12/01/19 08:00 12/01/19 08:00 Social: Social History: No alcohol and No tobacco Exam: Pre-Anes Outpt Exam: clear to auscultation bilaterally Additional Exam Findings (including area of procedure): HR ST, obtunded Airway: Submandibular: Other (unable to eval) Cervical ROM: Other (unable to eval) Dentition: False (upper and lower) History/ROS: No significant history except as noted Pulmonary: Pulmonary: COPD CV/HEM: CV/HEM: HTN : Comments: hydronephrosis, urosepsis Hepatic: Hepatic: Cirrohsis GI: GI: GERD Metabolic: Metabolic: DM, Hyperlipidemia and Morbid obesity Musc/skel: Musc/skel: Fibromyalgia and Weakness (gen) Neuropsych: Neuropsych: Dementia Comments: decreased LOC Anesthetic Plan: ASA status: 4 Anesthesia: Anesthesia Evaluation and General Risk of > 500 ml blood loss (7ml/kg in children): No Meds/Allergies Current Medications: Current Medications Generic Name Dose Route Start Last Admin Trade Name Freq PRN Reason Stop Dose Admin Acetaminophen 650 mg 11/30/19 17:52 12/01/19 01:46 Tylenol PO 650 mg Q6H PRN Administration Mild/Mod Pain Or Temp >/= 101 Enoxaparin Sodium 30 mg 11/30/19 18:00 11/30/19 19:46 Lovenox SUBCUT 30 mg Q24H GIOVANNY Administration Piperacillin Sod/T azobactam 50 mls @ 12.5 mls /hr 11/30/19 21:30 12/01/19 09:21 Sod 3.375 gm/ So dium Chloride IV 50 mls/hr Q8H GIOVANNY Administration Protocol Sodium Chloride 1,000 mls @ 100 m ls/hr 11/30/19 19:10 12/01/19 05:59 Sodium Chloride 0.9% IV 100 mls/hr .Q10H GIOVANNY Administration Insulin Aspart 0 unit 11/30/19 19:10 12/01/19 09:22 Novolog SUBCUT 8 unit WM&BEDTIME GIOVANNY Administration Protocol Levothyroxine Sodi um 150 mcg 12/01/19 09:00 12/01/19 09:21 Synthroid PO 150 mcg DAILY GIOVANNY Administration PFSH Anesthesia PFSH: Medical History Cirrhosis of liver COPD (chronic obstructive pulmonary disease) Dementia without behavioral disturbance Diabetes mellitus Fibromyalgia Frailty GERD (gastroesophageal reflux disease) Hypertension Surgical History S/P cataract extraction S/P cholecystectomy Status post carpal tunnel release of both wrists Family History Other Cancer Diabetes Heart disease Social History Smoking and tobacco status: never smoked Alcohol intake: never Marital status: / History of recent travel: No Current gender identity: Female Data Anesthesia CBC & Chem 7: 12/01/19 04:48 12/01/19 04:48 Other Labs: Laboratory Results - last 48 hr 11/30/19 11/30/19 11/30/19 12:20 12:38 12:45 WBC RBC Hgb Hct MCV MCH MCHC RDW Plt Count MPV Neut % (Auto) Lymph % (Auto) [place] % (Auto) Eos % (Auto) Baso % (Auto) Neut # (Auto) Lymph # (Auto) [place] # (Auto) Eos # (Auto) Baso # (Auto) Nucleated RBC % (auto) Nucleated RBCs # Specimen Type Arterial Sample Site Brachial, left ABG pH 7.34 L ABG pCO2 34.3 L ABG pO2 67.2 L ABG HCO3 18.5 L ABG O2 Saturation 94.1 ABG Base Excess -6.6 L Manoj Test Pos A-a O2 Gradient 37.8 H Hematocrit 26.2 L Hgb O2 Saturation 91.6 L Carboxyhemoglobin 1.5 Methemoglobin 1.2 Total Hemoglobin 8.5 L Sodium 131.0 Potassium 4.5 Glucose 399.0 H Ionized Calcium 1.2 O2 Delivery Device Room air FiO2 21.0 Venetian Blind Washer ID cak Chloride Carbon Dioxide Anion Gap BUN Creatinine POC Glucose 410 Estimat Average Glucose Hemoglobin A1c Calculated Osmolality Lactate Calcium Total Bilirubin AST ALT Alkaline Phosphatase Ammonia Creatine Kinase Troponin I 6 Hour Troponin I Hi Sens Del Troponin T Baseline Troponin T 120 Minute Delta Troponin T Total Protein Albumin Globulin Lipase TSH Urine Color Brown Urine Appearance Cloudy Urine pH 5 Ur Specific Clarissa 1.025 Urine Protein 2+ H Urine Glucose (UA) 2+ Urine Ketones Negative Urine Blood 3+ H Urine Nitrate Negative Urine Bilirubin Neg Urine Urobilinogen Norm Ur Leukocyte Esterase 2+ H Urine RBC 40-50 H Urine WBC 55-80 H Ur Squamous Epith Cells 0-4 H Amorphous Sediment 3+ Urine Bacteria 1+ H Urine Yeast Serum Ketones Blood Type Rho(D) Type Antibody Screen Crossmatch 11/30/19 11/30/19 11/30/19 13:02 13:02 13:02 WBC 19.6 H RBC 2.77 L Hgb 8.0 L Hct 26.5 L MCV 95.7 MCH 28.9 MCHC 30.2 RDW 16.1 H Plt Count 311 MPV 9.6 Neut % (Auto) 76.2 Lymph % (Auto) 12.0 [place] % (Auto) 10.8 Eos % (Auto) 0.1 Baso % (Auto) 0.1 Neut # (Auto) 14.9 H Lymph # (Auto) 2.4 [place] # (Auto) 2.1 H Eos # (Auto) 0.0 Baso # (Auto) 0.0 Nucleated RBC % (auto) 0 Nucleated RBCs # 0.0 Specimen Type Sample Site ABG pH ABG pCO2 ABG pO2 ABG HCO3 ABG O2 Saturation ABG Base Excess Manoj Test A-a O2 Gradient Hematocrit Hgb O2 Saturation Carboxyhemoglobin Methemoglobin Total Hemoglobin Sodium 127 L Potassium 4.6 Glucose 426 H Ionized Calcium O2 Delivery Device FiO2 [place] Blind Washer ID Chloride 98 Carbon Dioxide 18 L Anion Gap 15.6 BUN 44 H Creatinine 2.0 H POC Glucose Estimat Average Glucose Hemoglobin A1c Calculated Osmolality 280 L Lactate 1.3 Calcium 9.0 Total Bilirubin 0.7 AST 24 ALT 10 Alkaline Phosphatase 109 H Ammonia Creatine Kinase 15 L Troponin I 6 Hour Troponin I Hi Sens Del Troponin T Baseline Troponin T 120 Minute Delta Troponin T Total Protein 7.8 Albumin 3.1 L Globulin 4.7 H Lipase 19 TSH Urine Color Urine Appearance Urine pH Ur Specific Clarissa Urine Protein Urine Glucose (UA) Urine Ketones Urine Blood Urine Nitrate Urine Bilirubin Urine Urobilinogen Ur Leukocyte Esterase Urine RBC Urine WBC Ur Squamous Epith Cells Amorphous Sediment Urine Bacteria Urine Yeast Serum Ketones Blood Type Rho(D) Type Antibody Screen Crossmatch 11/30/19 11/30/19 11/30/19 13:02 13:02 13:02 WBC RBC Hgb Hct MCV MCH MCHC RDW Plt Count MPV Neut % (Auto) Lymph % (Auto) [place] % (Auto) Eos % (Auto) Baso % (Auto) Neut # (Auto) Lymph # (Auto) [place] # (Auto) Eos # (Auto) Baso # (Auto) Nucleated RBC % (auto) Nucleated RBCs # Specimen Type Sample Site ABG pH ABG pCO2 ABG pO2 ABG HCO3 ABG O2 Saturation ABG Base Excess Manoj Test A-a O2 Gradient Hematocrit Hgb O2 Saturation Carboxyhemoglobin Methemoglobin Total Hemoglobin Sodium Potassium Glucose Ionized Calcium O2 Delivery Device FiO2 [place] Blind Washer ID Chloride Carbon Dioxide Anion Gap BUN Creatinine POC Glucose Estimat Average Glucose Hemoglobin A1c Calculated Osmolality Lactate Calcium Total Bilirubin AST ALT Alkaline Phosphatase Ammonia 34 Creatine Kinase Troponin I 6 Hour Troponin I Hi Sens Del Troponin T Baseline 39 H Troponin T 120 Minute Delta Troponin T Total Protein Albumin Globulin Lipase TSH Urine Color Urine Appearance Urine pH Ur Specific Clarissa Urine Protein Urine Glucose (UA) Urine Ketones Urine Blood Urine Nitrate Urine Bilirubin Urine Urobilinogen Ur Leukocyte Esterase Urine RBC Urine WBC Ur Squamous Epith Cells Amorphous Sediment Urine Bacteria Urine Yeast Serum Ketones Negative Blood Type Rho(D) Type Antibody Screen Crossmatch 11/30/19 11/30/19 11/30/19 14:33 15:14 15:14 WBC RBC Hgb Hct MCV MCH MCHC RDW Plt Count MPV Neut % (Auto) Lymph % (Auto) [place] % (Auto) Eos % (Auto) Baso % (Auto) Neut # (Auto) Lymph # (Auto) [place] # (Auto) Eos # (Auto) Baso # (Auto) Nucleated RBC % (auto) Nucleated RBCs # Specimen Type Sample Site ABG pH ABG pCO2 ABG pO2 ABG HCO3 ABG O2 Saturation ABG Base Excess Manoj Test A-a O2 Gradient Hematocrit Hgb O2 Saturation Carboxyhemoglobin Methemoglobin Total Hemoglobin Sodium Potassium Glucose Ionized Calcium O2 Delivery Device FiO2 [place] Blind Washer ID Chloride Carbon Dioxide Anion Gap BUN Creatinine POC Glucose 430 Estimat Average Glucose Hemoglobin A1c Calculated Osmolality Lactate Calcium Total Bilirubin AST ALT Alkaline Phosphatase Ammonia Creatine Kinase Troponin I 6 Hour Troponin I Hi Sens Del Troponin T Baseline Troponin T 120 Minute 36.59 H Delta Troponin T -2.41 L Total Protein Albumin Globulin Lipase TSH 0.79 Urine Color Urine Appearance Urine pH Ur Specific Clarissa Urine Protein Urine Glucose (UA) Urine Ketones Urine Blood Urine Nitrate Urine Bilirubin Urine Urobilinogen Ur Leukocyte Esterase Urine RBC Urine WBC Ur Squamous Epith Cells Amorphous Sediment Urine Bacteria Urine Yeast Serum Ketones Blood Type Rho(D) Type Antibody Screen Crossmatch 11/30/19 11/30/19 11/30/19 19:13 19:38 21:19 WBC RBC Hgb Hct MCV MCH MCHC RDW Plt Count MPV Neut % (Auto) Lymph % (Auto) [place] % (Auto) Eos % (Auto) Baso % (Auto) Neut # (Auto) Lymph # (Auto) [place] # (Auto) Eos # (Auto) Baso # (Auto) Nucleated RBC % (auto) Nucleated RBCs # Specimen Type Sample Site ABG pH ABG pCO2 ABG pO2 ABG HCO3 ABG O2 Saturation ABG Base Excess Manoj Test A-a O2 Gradient Hematocrit Hgb O2 Saturation Carboxyhemoglobin Methemoglobin Total Hemoglobin Sodium Potassium Glucose Ionized Calcium O2 Delivery Device FiO2 [place] Blind Washer ID Chloride Carbon Dioxide Anion Gap BUN Creatinine POC Glucose 348 334 Estimat Average Glucose Hemoglobin A1c Calculated Osmolality Lactate Calcium Total Bilirubin AST ALT Alkaline Phosphatase Ammonia Creatine Kinase Troponin I 6 Hour 31.13 H Troponin I Hi Sens Del -5.46 L Troponin T Baseline Troponin T 120 Minute Delta Troponin T Total Protein Albumin Globulin Lipase TSH Urine Color Urine Appearance Urine pH Ur Specific Clarissa Urine Protein Urine Glucose (UA) Urine Ketones Urine Blood Urine Nitrate Urine Bilirubin Urine Urobilinogen Ur Leukocyte Esterase Urine RBC Urine WBC Ur Squamous Epith Cells Amorphous Sediment Urine Bacteria Urine Yeast Serum Ketones Blood Type Rho(D) Type Antibody Screen Crossmatch 11/30/19 11/30/19 12/01/19 22:57 23:35 04:48 WBC 14.6 H RBC 2.43 L Hgb 7.1 L Hct 23.3 L MCV 95.9 MCH 29.2 MCHC 30.5 RDW 16.6 H Plt Count 275 MPV 9.5 Neut % (Auto) 69.1 Lymph % (Auto) 17.3 [place] % (Auto) 12.3 Eos % (Auto) 0.5 Baso % (Auto) 0.2 Neut # (Auto) 10.1 H Lymph # (Auto) 2.5 [place] # (Auto) 1.8 H Eos # (Auto) 0.1 Baso # (Auto) 0.0 Nucleated RBC % (auto) 0 Nucleated RBCs # 0.0 Specimen Type Sample Site ABG pH ABG pCO2 ABG pO2 ABG HCO3 ABG O2 Saturation ABG Base Excess Manoj Test A-a O2 Gradient Hematocrit Hgb O2 Saturation Carboxyhemoglobin Methemoglobin Total Hemoglobin Sodium 131 L Potassium 4.0 Glucose 232 H Ionized Calcium O2 Delivery Device FiO2 [place] Blind Washer ID Chloride 103 Carbon Dioxide 17 L Anion Gap 15.0 BUN 46 H Creatinine 2.3 H POC Glucose Estimat Average Glucose Hemoglobin A1c Calculated Osmolality 277 L Lactate Calcium 9.3 Total Bilirubin 0.6 AST 26 ALT 10 Alkaline Phosphatase 101 Ammonia Creatine Kinase Troponin I 6 Hour Troponin I Hi Sens Del Troponin T Baseline Troponin T 120 Minute Delta Troponin T Total Protein 8.0 Albumin 3.0 L Globulin 5.0 H Lipase TSH Urine Color Brown Urine Appearance Cloudy Urine pH 5 Ur Specific Clarissa 1.025 Urine Protein 2+ H Urine Glucose (UA) 2+ Urine Ketones Negative Urine Blood 3+ H Urine Nitrate Negative Urine Bilirubin Neg Urine Urobilinogen Norm Ur Leukocyte Esterase 2+ H Urine RBC >100 H Urine WBC >100 H Ur Squamous Epith Cells 5-10 H Amorphous Sediment Urine Bacteria 4+ H Urine Yeast 1+ H Serum Ketones Blood Type Rho(D) Type Antibody Screen Crossmatch 12/01/19 12/01/19 12/01/19 04:48 04:48 07:50 WBC RBC Hgb Hct MCV MCH MCHC RDW Plt Count MPV Neut % (Auto) Lymph % (Auto) [place] % (Auto) Eos % (Auto) Baso % (Auto) Neut # (Auto) Lymph # (Auto) [place] # (Auto) Eos # (Auto) Baso # (Auto) Nucleated RBC % (auto) Nucleated RBCs # Specimen Type Sample Site ABG pH ABG pCO2 ABG pO2 ABG HCO3 ABG O2 Saturation ABG Base Excess Manoj Test A-a O2 Gradient Hematocrit Hgb O2 Saturation Carboxyhemoglobin Methemoglobin Total Hemoglobin Sodium 132 L Potassium 4.0 Glucose 173 H Ionized Calcium O2 Delivery Device FiO2 [place] Blind Washer ID Chloride 103 Carbon Dioxide 18 L Anion Gap 15.0 BUN 45 H Creatinine 2.3 H POC Glucose 192 Estimat Average Glucose 232 Hemoglobin A1c 9.7 H Calculated Osmolality 276 L Lactate Calcium 8.7 Total Bilirubin 0.6 AST 21 ALT 8 Alkaline Phosphatase 89 Ammonia Creatine Kinase Troponin I 6 Hour Troponin I Hi Sens Del Troponin T Baseline Troponin T 120 Minute Delta Troponin T Total Protein 7.0 Albumin 2.7 L Globulin 4.3 Lipase TSH Urine Color Urine Appearance Urine pH Ur Specific Clarissa Urine Protein Urine Glucose (UA) Urine Ketones Urine Blood Urine Nitrate Urine Bilirubin Urine Urobilinogen Ur Leukocyte Esterase Urine RBC Urine WBC Ur Squamous Epith Cells Amorphous Sediment Urine Bacteria Urine Yeast Serum Ketones Blood Type Rho(D) Type Antibody Screen Crossmatch 12/01/19 12/01/19 08:55 11:10 WBC RBC Hgb Hct MCV MCH MCHC RDW Plt Count MPV Neut % (Auto) Lymph % (Auto) [place] % (Auto) Eos % (Auto) Baso % (Auto) Neut # (Auto) Lymph # (Auto) [place] # (Auto) Eos # (Auto) Baso # (Auto) Nucleated RBC % (auto) Nucleated RBCs # Specimen Type Sample Site ABG pH ABG pCO2 ABG pO2 ABG HCO3 ABG O2 Saturation ABG Base Excess Manoj Test A-a O2 Gradient Hematocrit Hgb O2 Saturation Carboxyhemoglobin Methemoglobin Total Hemoglobin Sodium Potassium Glucose Ionized Calcium O2 Delivery Device FiO2 [place] Blind Washer ID Chloride Carbon Dioxide Anion Gap BUN Creatinine POC Glucose 147 Estimat Average Glucose Hemoglobin A1c Calculated Osmolality Lactate Calcium Total Bilirubin AST ALT Alkaline Phosphatase Ammonia Creatine Kinase Troponin I 6 Hour Troponin I Hi Sens Del Troponin T Baseline Troponin T 120 Minute Delta Troponin T Total Protein Albumin Globulin Lipase TSH Urine Color Urine Appearance Urine pH Ur Specific Clarissa Urine Protein Urine Glucose (UA) Urine Ketones Urine Blood Urine Nitrate Urine Bilirubin Urine Urobilinogen Ur Leukocyte Esterase Urine RBC Urine WBC Ur Squamous Epith Cells Amorphous Sediment Urine Bacteria Urine Yeast Serum Ketones Blood Type O Positive Rho(D) Type Positive Antibody Screen Negative Crossmatch See Detail Micro: Microbiology 11/30/19 12:20 Urine Culture - Preliminary Urine,Clean Catch Yeast species 11/30/19 12:57 Blood Culture - Preliminary Blood SPECIMEN COLLECTED 11/30/19 13:02 Blood Culture - Preliminary Blood SPECIMEN COLLECTED Cardiac Studies: No Data to Display
--- NOTE | 2019-12-01 12:49 | P.CONIM_ITS ---
Providers/Reason For Consult Consulting Physican/Specialty*: Urology/Cardoso Reason for Consult*: Obstructive pyelonephritis, right with sepsis Attending Physician: Ana Lu MD Primary Care Provider: Pilo Alexis MD History of Present Illness History of Present Illness Melba Newman is a 74 year old female who I evaluated for the first time today at the request of Dr. Lu for sepsis related to urinary tract infection/obstructive pyelonephritis. Elderly female with multiple medical problems who presented with severe mental status changes discovered by her family. Urinary tract infection was diagnosed. Creatinine elevated on admission. CT scan without contrast demonstrated right hydronephrosis with dilated ureter down to close to the urinary bladder. No obvious stone was identified. I did review the CT scan and agree with those findings. The bladder appears to be somewhat thickened near the right ureteral orifice and could not rule out a soft tissue mass in that area. I was consulted this afternoon for evaluation for stenting emergently. Other serious medical illnesses include cirrhosis, COPD, dementia, GERD, hypertension, diabetes mellitus. No reports of stones. Review of Systems General: Reports: ROS unobtainable due to medical condition and ROS unobtainable due to mental status Meds/Allergies Home Medications and Allergies Home Medications Medication Instructions Recorded Confirmed Last Taken Type duloxetine 30 mg capsule,delayed 60 mg PO DAILY cap 06/23/19 11/30/19 Unknown History release omeprazole 20 mg capsule,delayed 20 mg PO DAILY #30 cap 09/21/19 11/30/19 Unknown Rx release albuterol sulfate 90 mcg/actuation 2 puff INHALATION Q6H PRN #8.5 gm 09/28/19 11/30/19 Unknown Rx aerosol inhaler allopurinol 100 mg tablet 100 mg PO DAILY #30 tab 09/28/19 11/30/19 Unknown Rx canagliflozin 300 mg tablet 300 mg PO QAM #30 tab 09/28/19 11/30/19 Unknown Rx levothyroxine 150 mcg capsule 150 mcg PO DAILY #30 cap 09/28/19 11/30/19 Unknown Rx liraglutide 0.6 mg/0.1 mL (18 mg/3 1.8 mg SUBCUT Q24H #9 ml 09/28/19 11/30/19 Unknown Rx mL) subcutaneous pen injector oxybutynin chloride 5 mg tablet 5 mg PO DAILY #30 tab 09/28/19 11/30/19 Unknown Rx spironolactone 25 mg tablet 25 mg PO DAILY #30 tab 09/28/19 11/30/19 Unknown Rx ferrous sulfate 325 mg (65 mg 325 mg PO DAILY #30 tab 10/16/19 11/30/19 Unknown Rx iron) tablet insulin glargine 100 unit/mL 40 unit SUBCUT BID #10 ml 10/16/19 11/30/19 Unknown Rx subcutaneous solution pen needle, diabetic 31 gauge x #100 each 10/16/19 11/30/19 Unknown Rx 5/16 gabapentin 800 mg tablet 800 mg PO TID #90 tab 10/23/19 11/30/19 Unknown Rx metoprolol tartrate 50 mg tablet 12.5 mg PO BID #60 tab 11/10/19 11/30/19 Unknown Rx Adult Aspirin Regimen 81 mg PO DAILY 11/30/19 11/30/19 Unknown History Humalog KwikPen Insulin See Rx Instructions .ROUTE .COMPLEX 11/30/19 11/30/19 Unknown History Allergies Allergy/AdvReac Type Severity Reaction Status Date / Time celecoxib [From Celebrex] Allergy Intermediate confusion Verified 10/16/19 10:44 meperidine [From Demerol] Allergy Unknown Verified 10/16/19 10:44 theophylline Allergy Unknown Verified 10/16/19 10:44 Current Medications Current Medications Generic Name Dose Route Start Last Admin Trade Name Freq PRN Reason Stop Dose Admin Acetaminophen 650 mg 11/30/19 17:52 12/01/19 01:46 Tylenol PO 650 mg Q6H PRN Administration Mild/Mod Pain Or Temp >/= 101 Enoxaparin Sodium 30 mg 11/30/19 18:00 11/30/19 19:46 Lovenox SUBCUT 30 mg Q24H GIOVANNY Administration Piperacillin Sod/Tazobactam 50 mls @ 12.5 mls/hr 11/30/19 21:30 12/01/19 09:21 Sod 3.375 gm/ Sodium Chloride IV 50 mls/hr Q8H GIOVANNY Administration Protocol Sodium Chloride 1,000 mls @ 100 mls/hr 11/30/19 19:10 12/01/19 05:59 Sodium Chloride 0.9% IV 100 mls/hr .Q10H GIOVANNY Administration Insulin Aspart 0 unit 11/30/19 19:10 12/01/19 09:22 Novolog SUBCUT 8 unit WM&BEDTIME GIOVANNY Administration Protocol Levothyroxine Sodium 150 mcg 12/01/19 09:00 12/01/19 09:21 Synthroid PO 150 mcg DAILY GIOVANNY Administration PFSH Acute PFSH: Medical History Cirrhosis of liver COPD (chronic obstructive pulmonary disease) Dementia without behavioral disturbance Diabetes mellitus Fibromyalgia Frailty GERD (gastroesophageal reflux disease) Hypertension Surgical History S/P cataract extraction S/P cholecystectomy Status post carpal tunnel release of both wrists Family History Other Cancer Diabetes Heart disease Social History Smoking and tobacco status: never smoked Alcohol intake: never Marital status: / History of recent travel: No Current gender identity: Female Vitals/I&O/Wt Last Vital Signs Temp 98.3 F 12/01/19 08:00 Pulse 106 H 12/01/19 08:00 Resp 18 12/01/19 08:00 BP 147/87 12/01/19 08:00 Pulse Ox 97 12/01/19 08:00 11/30/19 12/01/19 12/01/19 22:59 06:59 14:59 Intake Total 65 / 115 1050 / 1165 60 / 60 Output Total 175 / 175 650 / 825 Balance -110 / -60 400 / 340 60 / 60 Weight last 48 hrs Weight 245 lb Physical Exam Narrative: EXAM NARRATIVE: Patient is somnolent. Appears to be sleeping. She does have some response to deep palpation of her right flank. No audible wheezing. No labored respiration. Tachycardic Catheter is draining purulent urine Abdomen is obese. No palpable masses. Bowel sounds are hypoactive. Genitourinary exam shows urogenital atrophy. No obvious vaginal discharge. Normal urethral meatus. Some peripheral edema. Urinary Catheter Management^: Chow: Cath Placed During This Visit: yes Reason for Continuing Indwelling Catheter: Accurate Measurement of Urinary Output in Critically Ill Patients Urinary Catheter Date of Insertion: 11/30/19 Urinary Catheter Time of Insertion: 12:25 Data Micro: Micro: Microbiology 06/04/20 12:20 Urine Culture - Pr eliminary Urine,Clean Catch Yeast species 11/30/19 12:57 Blood Culture - Pr eliminary Blood SPECIMEN COLLEC LUMA 11/30/19 13:02 Blood Culture - Pr eliminary Blood SPECIMEN [facility] A&P Assessment and plan (1) Ureteral obstruction: Right distal ureter obstruction complicated by UTI and sepsis. Status: Acute Qualifiers: Laterality: right Qualified Code(s): N13.5 - Crossing vessel and stricture of ureter without hydronephrosis (2) Pyelonephritis: Status: Acute (3) Sepsis: Status: Acute Qualifiers: Sepsis acute organ dysfunction status: with acute organ dysfunction Sepsis type: sepsis due to unspecified organism Severe sepsis acute organ dysfunction type: encephalopathy Qualified Code(s): A41.9 - Sepsis, unspecified organism; R65.20 - Severe sepsis without septic shock; G93.40 - Encephalopathy, unspecified Consult Attestations Medical Necessity Statement: Critically ill. ICU patient. Coding Level of Care Code Acute Daily Release And Dupe Printer for [facility] Fwd Diagnoses Ureteral obstruction N13.5 Laterality: right Pyelonephritis N12 Sepsis A41.9; R65.20; G93.40 Sepsis acute organ dysfunction status: with acute organ dysfunction Sepsis type: sepsis due to unspecified organism Severe sepsis acute organ dysfunction type: encephalopathy
[2019-12-01] MEDS: fluconazole premix 200 MG/100 ML PREMIX 100 MG IV ×2 (12:54→16:47)
--- NOTE | 2019-12-01 12:58 | SC_ITS ---
WS: [id number] C-arm FL for Urology REASON FOR EXAM: intra-op FINDINGS: C-arm imaging for positioning of a stent in the right kidney is noted. The stent appears to be adequate position. SC/C-arm FL for Urology IMPRESSION: Positioning of the stent on the right appears to be adequate.
--- NOTE | 2019-12-01 13:01 | PC.NURSE ---
HAVE ATTEMPTED SEVERAL TIMES THIS MORNING TO CONTACT FAMILY REGARDING PT CARE/PROCEDURES. UNABLE TO GET AN ANSWER AT EITHER NUMBER IN HER CHART. WILL PROCEED WITH SURGERY FOR CYSTOSCOPY, RIGHT URETERAL STENT PT CONFUSED
--- NOTE | 2019-12-01 13:32 | PC.NURSE ---
SURGERY HERE TO TRANSPORT TO OR. DR GAN NOTIFIED OF BP & TEMP. NEW ORDERS RECEIVED
--- NOTE | 2019-12-01 14:02 | PM.OP ---
Operative Report Date of procedure: December 01, 2019 Pre-op Diagnosis: Right obstructive pyelonephritis Post-op diagnosis: same Procedure Done: Cystoscopy, right ureteral stent placement Implants: 8 Iranian by 26 cm double-pigtail stent with good drainage Pathology: none sent Surgeon: Walker Anesthesia: MAC (Shelli FLANAGAN) Estimated blood loss: None Complications: None Findings: Large amount of infection sediment in the bladder. Luminal mass. The sediment probably accounted for the thickening on the CT scan. I expect that the sediment also represented a source of obstruction. Probably pyelonephritis with infectious sediment obstructing the distal ureter Condition: critical Disposition: ICU Brief History: Mrs. Newman is a 74-year-old white female who I was consulted on emergently today with obstructive pyelonephritis. CT scan was reviewed. She was critically ill. Findings on the CT scan were consistent with distal ureteral obstruction of unclear etiology and moderate to severe hydronephrosis. There was some thickening on the bladder wall near the right ureteral orifice so the possibility of a neoplastic process was entertained. Taken to the operating room emergently. Multiple attempts were made to try to contact her family but were unsuccessful. Due to the EMERGENT STATUS of this frail woman it was decided to move to surgery without additional consent. Procedure: After emergent evaluation examination and obtaining of informed consent she was taken to the operating suite on 12/01/2019 where monitored anesthesia was administered without difficulty. She remained stable hemodynamically with fluid support and blood replacement. Did not require pressors. Prepped and draped in the usual sterile fashion in dorsolithotomy position pain careful attention to voiding pressure points. 21 Iranian cystoscope with 30 degree lens was introduced into the bladder. There was a large amount of sediment and cloudy urine. The bladder was irrigated free of the sediment which accounted for approximately 30 cc of purulent material. The bladder was then inspected and there was no evidence of an intraluminal neoplastic process with ureteral obstruction. There did appear to be some edema of the ureteral orifice on the right side. Flexible tip guidewire was then advanced up the right ureter easily with immediate release of purulent material. The wire was confirmed to be in the area of the right renal pelvis and then an 8 Iranian by 26 cm double-pigtail stent was advanced over the guidewire through the cystoscope into appropriate position as confirmed via fluoroscopy and cystoscopy. The stent was confirmed to be draining purulent material. Bladder was drained with a 16 Iranian Chow catheter. She was awakened in the operating room and returned to ICU in critical condition.
--- NOTE | 2019-12-01 14:19 | SUR.OPER ---
Blood infusing when patient arrived to OR, Vital signs taken by anesthesia, Blood still infusing when transported back to ICU.
[2019-12-01 14:49] LABS: Iron 25 ug/dL (37-145); Vitamin B12 1849 pg/mL (232-1245)
[2019-12-01] MEDS: ipratropium 0.5 mg/2.5 mL Neb INHALATION (14:56)
[2019-12-01 16:48] LABS: Glucose Point of Care 163 mg/dL (70-110)
[2019-12-01] MEDS: enoxaparin 30 mg/0.3 mL Syringe SUBCUT (18:56)
[2019-12-01 21:08] LABS: Glucose Point of Care 196 mg/dL (70-110)
[2019-12-02] VITALS (29 sets, daily range): BP systolic 97–159; BP diastolic 42–92; PULSE 86–105; RESP 16–20; TEMP 36.1–37.1; O2SAT 91–100
[2019-12-02] MEDS: piperacillin-tazobactam 3.375 GM in sodium chloride 0.9% (plus) 50 ML IV ×4 (00:10→23:37)
[2019-12-02 04:54] LABS: Basophils % 0.1 %; Eosinophils # 0.1 10^3/uL (0.0-0.8); Eosinophils % 1.6 %; Hematocrit 27.3 % (37.0-47.0); Hemoglobin 8.2 g/dL (11.5-15.3); Lymphocytes # 2.1 10^3/uL (0.8-4.8); Lymphocytes % 30.4 %; Mean Corpuscular Hemoglobin 28.8 pg (28.0-34.0); Mean Corpuscular Volume 95.8 fL (81-99); Mean Platelet Volume 9.4 fL (7.4-10.4); Monocytes # 0.7 10^3/uL (0.2-0.9); Monocytes % 10.9 %; Neutrophils # 3.8 10^3/uL (1.8-7.7); Neutrophils % 56.4 %; Nucleated Red Blood Cells % 0 %; Platelet Count 283 10^3/cmm (130-400); Red Blood Count 2.85 10^6/uL (4.1-5.3); Red Cell Distribution Width 17.2 % (12.1-15.1); White Blood Count 6.8 10^3/uL (4.0-10.0)
[2019-12-02 05:14] LABS: Alanine Aminotransferase 8 U/L (0-33); Albumin Level 2.5 g/dL (3.5-5.2); Alkaline Phosphatase 90 IU/L (35-105); Aspartate Amino Transferase 20 U/L (0-32); Blood Urea Nitrogen 36 mg/dL (8-23); Calcium 9.1 mg/dL (8.5-10.5); Carbon Dioxide 20 mmol/L (22-29); Chloride 106 mmol/L (98-107); Glucose 156 mg/dL (65-115); Osmolality Calculated 287 mOsm/kg (285-295); Sodium 138 mmol/L (136-145); Total Bilirubin 0.7 mg/dL (0.15-1.2); Total Protein 7.5 g/dL (6.6-8.7)
[2019-12-02] MEDS: lactated ringers 1,000 ML 100 ML IV ×2 (05:30→17:27)
--- NOTE | 2019-12-02 05:55 | PC.NURSE ---
Patient rested most of the night. Confused but pleasant. Pulling at electrodes and gown. VSS. Levophed not needed. SR-ST 90-110s on monitor. No c/o pain through the night.
[2019-12-02 08:04] LABS: Glucose Point of Care 170 mg/dL (70-110)
[2019-12-02] MEDS: levothyroxine 150 mcg Tablet PO (08:10)
--- NOTE | 2019-12-02 08:47 | P.PN_ITS ---
Subjective Subjective: Interval history: The patient underwent emergent right ureteral stent placement yesterday. She denies any abdominal pain today. She says she is not hungry but I ate 2 bowls of Jell-O this morning. Vitals/I&O/Wt Last Vital Signs Temp 97.0 F L 12/02/19 08:00 Pulse 98 12/02/19 08:00 Resp 16 12/02/19 04:45 BP 125/60 12/02/19 08:00 Pulse Ox 97 12/02/19 08:00 12/01/19 12/02/19 12/02/19 22:59 06:59 14:59 Intake Total 1041.667 / 2951.667 1150 / 2951.667 Output Total 1300 / 4050 1050 / 4050 Balance -258.333 / -1098.333 100 / -1098.333 Weight last 48 hrs Weight 245 lb Physical Exam Narrative: EXAM NARRATIVE: The abdomen reveals bowel sounds and is completely soft and nontender this morning. Urinary Catheter Management^: Chow: Cath Placed During This Visit: yes, but has since been removed by the nurse Reason for Continuing Indwelling Catheter: Accurate Measurement of Urinary Output in Critically Ill Patients Urinary Catheter Date of Insertion: 12/01/19 Urinary Catheter Time of Insertion: 13:56 Date Urinary Catheter Removed: 12/01/19 Time Urinary Catheter Discontinued: 13:52 Data : 12/02/19 04:19 12/02/19 04:19 Micro: Microbiology 12/02/19 04:12 Blood Culture - Preliminary Blood SPECIMEN COLLECTED 12/02/19 04:19 Blood Culture - Preliminary Blood SPECIMEN COLLECTED 11/30/19 12:57 Blood Culture - Preliminary Blood NEGATIVE TO DATE 11/30/19 13:02 Blood Culture - Preliminary Blood NEGATIVE TO DATE 11/30/19 12:20 Urine Culture - Preliminary Urine,Clean Catch Yeast species A&P Assessment and plan (1) Anemia: Hemoglobin improved. Patient's blood pressure is also much improved. Status: Acute (2) Abdominal pain: Status post emergent right ureteral stent placement. The patient's abdominal pain seems to be completely resolved at this point. It seems clear that her original CAT scan read of possible appendicitis was in error. I will be available if needed, but will not continue to see the patient daily. Please call if I can be of further assistance. Status: Resolved (3) Pyelonephritis: Continue present management by IM/urology. Status: Acute Attestations Medical Necessity Statement*: See admitting service's notation. Coding Level of Care Code Acute Marbleizing Machine Tender for [facility] Diagnoses Anemia D64.9 Abdominal pain R10.9 Pyelonephritis N12
--- NOTE | 2019-12-02 09:54 | P.PN_ITS ---
Subjective Subjective: Interval history: Significant improvement of mental status today. Patient is able to correctly tell me her name and age. She was reoriented this morning that she is in [place] and was able to repeat this back to me an hour later. She keeps asking for her and daughter who have unfortunately in June and first September of this year respectively. However when being reoriented to their demise, she has a realization of this. Leukocytosis resolced, wbc at 6.8. Hb 8.2. Bp stable, no further hypotensive episodes. Tmax 99.8F. 102F on 11/30 afternoon. Medications: Reviewed: Yes Vitals/I&O/Wt Last Vital Signs Temp 97.0 F L 12/02/19 08:00 Pulse 98 12/02/19 08:00 Resp 16 12/02/19 04:45 BP 125/60 12/02/19 08:00 Pulse Ox 97 12/02/19 08:00 12/01/19 12/02/19 12/02/19 22:59 06:59 14:59 Intake Total 1041.667 / 4687.968 8116 / 2951.667 Output Total 1300 / 3000 1050 / 4050 Balance -258.333 / -1198.333 100 / -1098.333 Weight last 48 hrs Weight 111.13 kg Physical Exam Narrative: EXAM NARRATIVE: GEN: Awake, alert and oriented x 2, requires frequent reorientation, no acute distress CVS: S1S2 N RS: CTA B/L Abd: Soft, nt/nd , bs+ PESTICIDE CHEMIST: no focal neuro deficits EXT: no gross edema, unchanged scabbed lesions over body Urinary Catheter Management^: Chow: Cath Placed During This Visit: yes, but has since been removed by the nurse Reason for Continuing Indwelling Catheter: Accurate Measurement of Urinary Output in Critically Ill Patients Urinary Catheter Date of Insertion: 12/01/19 Urinary Catheter Time of Insertion: 13:56 Date Urinary Catheter Removed: 12/01/19 Time Urinary Catheter Discontinued: 13:52 Data : 12/02/19 04:19 12/02/19 04:19 Micro: Microbiology 12/02/19 04:12 Blood Culture - Preliminary Blood SPECIMEN COLLECTED 12/02/19 04:19 Blood Culture - Preliminary Blood SPECIMEN COLLECTED 11/30/19 12:57 Blood Culture - Preliminary Blood NEGATIVE TO DATE 11/30/19 13:02 Blood Culture - Preliminary Blood NEGATIVE TO DATE 11/30/19 12:20 Urine Culture - Preliminary Urine,Clean Catch Yeast species A&P Assessment and plan (1) Sepsis: Status: Acute Qualifiers: Sepsis type: sepsis due to unspecified organism Sepsis acute organ dysfunction status: with acute organ dysfunction Severe sepsis acute organ dysfunction type: encephalopathy Qualified Code(s): A41.9 - Sepsis, unspecified organism; R65.20 - Severe sepsis without septic shock; G93.40 - Encephalopathy, unspecified (2) Pyelonephritis: Status: Acute (3) DM2 (diabetes mellitus, type 2): Status: Acute (4) Metabolic acidosis: Status: Acute (5) COPD (chronic obstructive pulmonary disease): Status: Acute (6) GERD (gastroesophageal reflux disease): Status: Acute (7) Cirrhosis of liver: Status: Acute (8) Dementia without behavioral disturbance: Status: Acute Additional A&P Information Admit to ICU 1. Sepsis, now improving : -Meets criteria with tachycardia, leukocytosis, source of infection and encephalopathy -Related to obstructive pyelonephritis s/p stent placement on 11/30 -Blood culture remains negative to date - Continue empiric Zosyn, vanc and fluconazole for now. - urine cx with MSSA, staph epidermidis and yeast. I am not certain if these represent specimen collected from a contaminated Chow, however if this turns out to be true staph aureus infection in the urine, then staph aureus bacteremia needs to be ruled out. If blood cx remains negative on 12/02, will stop iv vancomycin and change zosyn to ceftriaxone. Prefer to keep fluconazole on for now until cx definitively negative at day 5 as previous cx from September were with delayed growth of yeast. -Note made of fungemia with C. albicans in 09/2019, uncertain duration of treatment - continue IVF LR@ 75cc/hr 2. Obstructive pyelonephritis s/p ureteric stent placement R side on 11/30 with improvement in sepsis 3. Encephalopathy most likely secondary to sepsis, much improved this morning CT head without acute findings. No signs of abscess If blood cx returns positive for fungemia, then will need opthalmology assessment to r/o endopthalmitis. Defer LP for now. Given rapid improvement after stent placement, most likely cause of encephalopathy was metabolic encephalopthay from sepsis which is improving after source control. 4.. DM on insulin - on high dose sliding scale for now Normal anion gap metabolic acidosis, less likely to be DKA Continue to monitor 4. ANNITA 2/2 sepsis and pyelonephritis : IVF hydration, strict I/O monitoring. Cr improving to 2.1 now, per review of prior records from baseline, cr was also at 2.3, wonder if this may be close to her recent baseline 4. reported h/o dementia: needs frequent reorientation 5.H/o Cirrhosis 6. h/o HTN: hold antihypertensives for now given sepsis, monitor closely -PT/OT evaluation: currently deconditioned, likely from critical illness DVT ppx: lovenox Full code Dispo: Home with HH when ready medically Attestations Medical Necessity Statement*: ongoing need for iv antibiotics, improving sepsis Coding Level of Care Code Acute Metal Loader for [facility] Fwd Diagnoses Sepsis A41.9; R65.20; G93.40 Sepsis type: sepsis due to unspecified organism Sepsis acute organ dysfunction status: with acute organ dysfunction Severe sepsis acute organ dysfunction type: encephalopathy Pyelonephritis N12 DM2 (diabetes mellitus, type 2) E11.9 Metabolic acidosis E87.2 COPD (chronic obstructive pulmonary disease) J44.9 GERD (gastroesophageal reflux disease) K21.9 Cirrhosis of liver K74.60 Dementia without behavioral disturbance F03.90
[2019-12-02] MEDS: fluconazole premix 200 MG/100 ML PREMIX 100 MG IV (11:09)
[2019-12-02 11:51] LABS: Glucose Point of Care 285 mg/dL (70-110)
[2019-12-02 17:08] LABS: Glucose Point of Care 328 mg/dL (70-110)
[2019-12-02] MEDS: enoxaparin 30 mg/0.3 mL Syringe SUBCUT (17:26)
[2019-12-02] MEDS: metoprolol tartrate 25 mg Tablet 12.5 MG PO (17:27)
--- NOTE | 2019-12-02 19:14 | PC.NURSE ---
NOTIFIED LESLY CHRISTIE [phone] OF TRANSFER TO MED/SURG. RINGS, DENTURES, GLASSES WITH PT REPORT CALLED TO JUAREZ GOING TO ROOM [id number]
[2019-12-02 20:54] LABS: Glucose Point of Care 397 mg/dL (70-110)
[2019-12-02] MEDS: acetaminophen 325 mg Tablet 650 MG PO (22:49)
[2019-12-02] MEDS: OLANZapine 10 mg VIAL IM (23:36)
[2019-12-03] VITALS (8 sets, daily range): BP systolic 129–159; BP diastolic 64–76; PULSE 72–85; RESP 18–20; TEMP 36.7–37.1; O2SAT 95–97
[2019-12-03] MEDS: piperacillin-tazobactam 3.375 GM in sodium chloride 0.9% (plus) 50 ML IV ×3 (00:31→15:16)
[2019-12-03 06:50] LABS: Glucose Point of Care 156 mg/dL (70-110)
[2019-12-03 07:55] LABS: Basophils % 0.3 %; Eosinophils # 0.2 10^3/uL (0.0-0.8); Eosinophils % 2.7 %; Hematocrit 30.7 % (37.0-47.0); Hemoglobin 8.9 g/dL (11.5-15.3); Lymphocytes # 1.9 10^3/uL (0.8-4.8); Lymphocytes % 31.2 %; Mean Platelet Volume 9.3 fL (7.4-10.4); Monocytes # 0.4 10^3/uL (0.2-0.9); Monocytes % 6.7 %; Neutrophils # 3.5 10^3/uL (1.8-7.7); Neutrophils % 58.6 %; Nucleated Red Blood Cells % 0 %; Platelet Count 269 10^3/cmm (130-400); Red Blood Count 3.07 10^6/uL (4.1-5.3); Red Cell Distribution Width 17.2 % (12.1-15.1)
[2019-12-03 07:57] LABS: Alanine Aminotransferase 8 U/L (0-33); Albumin Level 2.8 g/dL (3.5-5.2); Alkaline Phosphatase 99 IU/L (35-105); Anion Gap 15.5 (5-19); Aspartate Amino Transferase 24 U/L (0-32); Blood Urea Nitrogen 30 mg/dL (8-23); Calcium 8.6 mg/dL (8.5-10.5); Carbon Dioxide 17 mmol/L (22-29); Chloride 103 mmol/L (98-107); Glucose 175 mg/dL (65-115); Osmolality Calculated 275 mOsm/kg (285-295); Potassium 3.5 mmol/L (3.5-5.1); Sodium 132 mmol/L (136-145); Total Bilirubin 0.8 mg/dL (0.15-1.2); Total Protein 7.8 g/dL (6.6-8.7)
--- NOTE | 2019-12-03 08:40 | PC.SOCIAL ---
IMM Page 2 of IMM explained to patient. Initialed, dated, and timed and placed in chart.
[2019-12-03] MEDS: levothyroxine 150 mcg Tablet PO (09:16)
[2019-12-03] MEDS: pantoprazole DR 40 mg Tablet PO (09:16)
[2019-12-03] MEDS: aspirin 81 mg EC Tablet PO (09:17)
[2019-12-03] MEDS: metoprolol tartrate 25 mg Tablet 12.5 MG PO ×2 (09:17→17:18)
[2019-12-03] MEDS: oxybutynin 5 mg Tablet PO (09:17)
[2019-12-03 10:30] LABS: Vancomycin Trough 18.6 ug/mL (10-15)
[2019-12-03] MEDS: fluconazole premix 200 MG/100 ML PREMIX 100 MG IV (10:42)
[2019-12-03] MEDS: acetaminophen 325 mg Tablet 650 MG PO (11:07)
[2019-12-03] MEDS: ondansetron 2 mg/ML SDV 2 mL 4 MG IVP ×2 (11:08→15:16)
[2019-12-03 12:12] LABS: Glucose Point of Care 330 mg/dL (70-110)
[2019-12-03] MEDS: lactated ringers 1,000 ML 75 ML IV ×2 (13:09→21:33)
--- NOTE | 2019-12-03 16:09 | P.PN_ITS ---
Subjective Subjective: Interval history: Continues to improve clinically. Remains afebrile and hemodynamically stable. Patient pulled out her Chow catheter this morning. We will leave it out for now. Her creatinine is improving now to 1.8. Leukocytosis has resolved. Mental status appears to be back at baseline. Blood culture today reported positive for gram-positive rasheed, appears to be b acillus species per preliminary discussion with micro lab. Needed a one-to-one sitter as she was noted to be pulling out her IVs. However she is not agitated, just intermittently confused and needs frequent reorientation. Medications: Reviewed: Yes Vitals/I&O/Wt Last Vital Signs Temp 98.2 F 12/03/19 15:39 Pulse 85 12/03/19 15:39 Resp 20 H 12/03/19 15:39 BP 150/72 12/03/19 15:39 Pulse Ox 96 12/03/19 15:39 12/03/19 12/03/19 12/03/19 06:59 14:59 22:59 Intake Total 550 / 4020 2130.00 / 2130.00 Output Total 1600 / 3300 400 / 400 Balance -1050 / 720 2130.00 / 2130.00 -400 / 1730.00 Physical Exam Narrative: EXAM NARRATIVE: GEN: Awake, alert and oriented x 2, requires frequent reorientation, no acute distress CVS: S1S2 N RS: CTA B/L Abd: Soft, nt/nd , bs+ DIE REPAIRER TRIMMER DIES: no focal neuro deficits EXT: no gross edema, unchanged scabbed lesions over body which appears to be healing well. Urinary Catheter Management^: Chow: Cath Placed During This Visit: yes, but has since been removed by the nurse Reason for Continuing Indwelling Catheter: Decision to DC Catheter Urinary Catheter Date of Insertion: 12/01/19 Urinary Catheter Time of Insertion: 13:56 Date Urinary Catheter Removed: 12/03/19 Time Urinary Catheter Discontinued: 15:00 Data : 12/03/19 07:30 12/03/19 07:30 Micro: Microbiology 12/02/19 04:12 Blood Culture - Preliminary Blood NEGATIVE TO DATE 12/02/19 04:19 Blood Culture - Preliminary Blood NEGATIVE TO DATE 11/30/19 13:02 Blood Culture - Preliminary Blood Gram positive rasheed 11/30/19 12:20 Urine Culture - Preliminary Urine,Clean Catch Yeast species A&P Assessment and plan (1) Sepsis: Status: Acute Qualifiers: Sepsis type: sepsis due to unspecified organism Sepsis acute organ dysfunction status: with acute organ dysfunction Severe sepsis acute organ dysfunction type: encephalopathy Qualified Code(s): A41.9 - Sepsis, unspecified organism; R65.20 - Severe sepsis without septic shock; G93.40 - Encephalopathy, unspecified (2) Pyelonephritis: Status: Acute (3) DM2 (diabetes mellitus, type 2): Status: Acute (4) Metabolic acidosis: Status: Acute (5) COPD (chronic obstructive pulmonary disease): Status: Acute (6) GERD (gastroesophageal reflux disease): Status: Acute (7) Cirrhosis of liver: Status: Acute (8) Dementia without behavioral disturbance: Status: Acute Additional A&P Information 1. Sepsis, now improving : -Meets criteria with tachycardia, leukocytosis, source of infection and encephalopathy -Related to obstructive pyelonephritis s/p stent placement on 11/30, significantly improved since then. -Blood culture today reported positive for gram-positive rods. Per discussion with micro lab this appears to be bacillus species. No indication of pseudohyphae to suggest yeast. Will await final identification. - urine cx with MSSA, staph epidermidis and yeast. I am not certain if these represent specimen collected from a contaminated Chow, however given the absence of staph aureus bacteremia, this should be treatable with short course of antibiotics. - Prefer to keep fluconazole on for now until blood culture cx definitively negative at day 5 as previous cx from September were with delayed growth of yeast. -Change Zosyn to ceftriaxone today and discontinue vancomycin. -Note made of fungemia with C. albicans in 09/2019, uncertain duration of treatment -Encourage p.o. intake. Continue IV fluids for now concomitantly. No signs of fluid overload. 2. Obstructive pyelonephritis s/p ureteric stent placement R side on 11/30 with improvement in sepsis 3. Encephalopathy most likely secondary to sepsis, now significantly improved. Patient is alert and awake, though does need frequent reorientation. I suspect this is related to her underlying dementia. CT head without acute findings. No signs of abscess If blood cx returns positive for fungemia, then will need opthalmology assessment to r/o endopthalmitis. 4.. DM on insulin - on high dose sliding scale for now Normal anion gap metabolic acidosis, less likely to be DKA Now resolved. STOP INVOKANA upon discharge as patient has now had multiple episodes of pyelonephritis this drug is known to precipitate UTI. 4. ANNITA 2/2 sepsis and pyelonephritis : IVF hydration, strict I/O monitoring. Cr improving to 1.8 now, per review of prior records from baseline, cr was also at 2.3, wonder if this may be close to her recent baseline 4. reported h/o dementia: needs frequent reorientation 5.H/o Cirrhosis 6. h/o HTN: Resumed metoprolol. We will continue to hold spironolactone. Add amlodipine 5 mg for blood pressure control. -PT/OT evaluation: currently deconditioned, likely from critical illness DVT ppx: lovenox Full code Dispo: Home with HH when ready medically Attestations Medical Necessity Statement*: improving sepsis, blood cx positive today, awaiting identification Coding Level of Care Code Acute Utility Gelatin Maker for g Fwd Diagnoses Sepsis A41.9; R65.20; G93.40 Sepsis type: sepsis due to unspecified organism Sepsis acute organ dysfunction status: with acute organ dysfunction Severe sepsis acute organ dysfunction type: encephalopathy Pyelonephritis N12 DM2 (diabetes mellitus, type 2) E11.9 Metabolic acidosis E87.2 COPD (chronic obstructive pulmonary disease) J44.9 GERD (gastroesophageal reflux disease) K21.9 Cirrhosis of liver K74.60 Dementia without behavioral disturbance F03.90
[2019-12-03 16:43] LABS: Glucose Point of Care 365 mg/dL (70-110)
[2019-12-03] MEDS: cefTRIAXone 1,000 MG in sodium chloride 0.9% (plus) 50 ML 100 MG IV (17:17)
[2019-12-03] MEDS: amlodipine 5 mg Tablet PO (17:18)
[2019-12-03] MEDS: enoxaparin 30 mg/0.3 mL Syringe SUBCUT (17:18)
[2019-12-03 21:03] LABS: Glucose Point of Care 310 mg/dL (70-110)
[2019-12-03] MEDS: haloperidol inj 5 mg/mL INJ 1 mL IVP (23:03)
[2019-12-04] VITALS: BP 134/70; PULSE 72; RESP 20; TEMP 36.7
[2019-12-04 04:00] VITALS: BP 134/70; BP 134/72; PULSE 72; PULSE 86; RESP 20; TEMP 36.6; TEMP 36.7; O2SAT 96
[2019-12-04 07:03] LABS: Glucose Point of Care 294 mg/dL (70-110)
[2019-12-04 07:28] VITALS: BP 148/66; PULSE 81; RESP 18; TEMP 37.2; O2SAT 97
[2019-12-04] MEDS: pantoprazole DR 40 mg Tablet PO (07:45)
[2019-12-04] MEDS: oxybutynin 5 mg Tablet PO (07:45)
[2019-12-04] MEDS: metoprolol tartrate 25 mg Tablet 12.5 MG PO ×2 (07:45→16:44)
[2019-12-04] MEDS: aspirin 81 mg EC Tablet PO (07:45)
[2019-12-04] MEDS: levothyroxine 150 mcg Tablet PO (07:46)
[2019-12-04] MEDS: amlodipine 5 mg Tablet PO (07:46)
[2019-12-04] MEDS: lactated ringers 1,000 ML 75 ML IV (07:53)
--- NOTE | 2019-12-04 10:36 | PC.NURSE ---
ROunding note at Shift Change: Patient upset stating someone needs to get her , that he was out in the light this am and she is demanding that he come in. I reoriented patient that spouse has a while ago and she told me you're full of shit . I asked patient if she would like to speak to daughter Cristela and she agreed. I called patients daughter and patient calmed down. Patient was assisted to edge of bed and assisted in tray set up. One-one sitter at bedside. Will continue to monitor. BONNY, DASHAWN
--- NOTE | 2019-12-04 10:49 | PC.NURSE ---
Rounding Dr. Cook with patient. Patient is agitated and confused. SMW, SHIRT SORTER
[2019-12-04] MEDS: fluconazole premix 200 MG/100 ML PREMIX 50 MG IV (11:25)
[2019-12-04 11:35] VITALS: BP 142/72; PULSE 75; RESP 18; TEMP 36.7; O2SAT 97
[2019-12-04 11:45] LABS: Glucose Point of Care 414 mg/dL (70-110)
--- NOTE | 2019-12-04 12:09 | PC.RESP ---
PULMONARY REHAB INFORMATION SENT TO PATIENT.
--- NOTE | 2019-12-04 12:46 | PM.PN ---
Subjective Subjective: Interval history: This morning patient was examined, she is alert oriented x1, does not know the time, nor the year, during my questioning, she mixes up her daughters, mixes up her daughter with her alive daughter, at times she thinks her is alive, but at other times can answer questions appropriately, has episodes of confusion, this morning she adamantly declines group home placement, states that she was going to divorce her when he brought up group home placement with her, states that she is really angry with her daughter if she wants her to go to a group home states, states that she will have plenty of help at home, but is quite vague in who is going to help her, still has generalized weakness, poor appetite, I have advised for short-term group home stay but patient refuses Medications: Reviewed: Yes Vitals/I&O/Wt Last Vital Signs Temp 98.1 F 12/04/19 11:35 Pulse 75 12/04/19 11:35 Resp 18 12/04/19 11:35 BP 142/72 12/04/19 11:35 Pulse Ox 97 12/04/19 11:35 12/03/19 12/04/19 12/04/19 22:59 06:59 14:59 Intake Total 870 / 3000.00 500 / 3500.00 1015 / 1015 Output Total 400 / 400 700 / 700 Balance 470 / 2600.00 500 / 3100.00 315 / 315 Physical Exam Urinary Catheter Management^: Chow: Cath Placed During This Visit: yes, but has since been removed by the nurse Reason for Continuing Indwelling Catheter: Decision to DC Catheter Urinary Catheter Date of Insertion: 12/01/19 Urinary Catheter Time of Insertion: 13:56 Date Urinary Catheter Removed: 12/03/19 Time Urinary Catheter Discontinued: 15:00 Data : 12/03/19 07:30 12/03/19 07:30 Micro: Microbiology 11/30/19 13:02 Blood Culture - Preliminary Blood Corynebacterium Species A&P Assessment and plan (1) Sepsis: Status: Acute Qualifiers: Sepsis type: sepsis due to unspecified organism Sepsis acute organ dysfunction status: with acute organ dysfunction Severe sepsis acute organ dysfunction type: encephalopathy Qualified Code(s): A41.9 - Sepsis, unspecified organism; R65.20 - Severe sepsis without septic shock; G93.40 - Encephalopathy, unspecified (2) Pyelonephritis: Status: Acute (3) DM2 (diabetes mellitus, type 2): Status: Acute (4) Metabolic acidosis: Status: Acute (5) COPD (chronic obstructive pulmonary disease): Status: Acute (6) GERD (gastroesophageal reflux disease): Status: Acute (7) Cirrhosis of liver: Status: Acute (8) Dementia without behavioral disturbance: Status: Acute Additional A&P Information 1. Sepsis, now improving : -Related to obstructive pyelonephritis s/p stent placement on 11/30, significantly improved since then. -Blood culture today reported positive for gram-positive rods. Per discussion with micro lab this appears to be Corynebacterium, likely contaminant, repeat blood cultures within normal limits. No indication of pseudohyphae to suggest yeast. Will await final identification. - urine cx with MSSA, staph epidermidis and yeast. I am not certain if these represent specimen collected from a contaminated Chow, however given the absence of staph aureus bacteremia, this should be treatable with short course of antibiotics. - Prefer to keep fluconazole on for now until blood culture cx definitively negative at day 5 as previous cx from September were with delayed growth of yeast. -Continue ceftriaxone -Note made of fungemia with C. albicans in 09/2019, uncertain duration of treatment -Encourage p.o. intake. -Would recommend group home stay for deconditioning, patient adamantly refuses 2. Obstructive pyelonephritis s/p ureteric stent placement R side on 11/30 with improvement in sepsis 3. Encephalopathy most likely secondary to sepsis, now significantly improved. Patient is alert and awake, though does need frequent reorientation. I suspect this is related to her underlying dementia. CT head without acute findings. No signs of abscess If blood cx returns positive for fungemia, then will need opthalmology assessment to r/o endopthalmitis. 4.. DM on insulin - on high dose sliding scale for now Add Levemir 8 units twice daily STOP INVOKANA upon discharge as patient has now had multiple episodes of pyelonephritis this drug is known to precipitate UTI. 4. ANNITA 2/2 sepsis and pyelonephritis : IVF stopped today, strict I/O monitoring. Cr improving to 1.8 now, per review of prior records from baseline, cr was also at 2.3, wonder if this may be close to her recent baseline 4. reported h/o dementia: needs frequent reorientation 5.H/o Cirrhosis 6. h/o HTN: Resumed metoprolol. We will continue to hold spironolactone. Add amlodipine 5 mg for blood pressure control. -PT/OT evaluation: currently deconditioned, likely from critical illness, would recommend short-term group home stay, patient refuses DVT ppx: lovenox Full code Dispo: Home with HH when ready medically Attestations Medical Necessity Statement*: Patient requires continued hospitalization for sepsis secondary to obstructive uropathy, deconditioning, dementia, encephalopathy Coding Level of Care Code Acute Food Production Manager for [facility] Fwd Diagnoses Sepsis A41.9; R65.20; G93.40 Sepsis type: sepsis due to unspecified organism Sepsis acute organ dysfunction status: with acute organ dysfunction Severe sepsis acute organ dysfunction type: encephalopathy Pyelonephritis N12 DM2 (diabetes mellitus, type 2) E11.9 Metabolic acidosis E87.2 COPD (chronic obstructive pulmonary disease) J44.9 GERD (gastroesophageal reflux disease) K21.9 Cirrhosis of liver K74.60 Dementia without behavioral disturbance F03.90
--- NOTE | 2019-12-04 13:20 | PC.NURSE ---
Assisted Patient to BSC with Gait Belt. Patient is unable to get out of bed by self. She used walked to shuffle feet to BS which is next to patients bed. Upon finishing patient was unable to raise from BSC with out lift assistance. Upon getting to upright position with assistance she states she is unable to perform Tonya Care to self as she states she can't reach back there. I performed tonya care on patient and assisted patient back to bed with moderate assist. BONNY, DASHAWN
[2019-12-04 15:30] VITALS: BP 144/80; PULSE 65; RESP 18; TEMP 36.7; O2SAT 98
[2019-12-04] MEDS: cefTRIAXone 1,000 MG in sodium chloride 0.9% (plus) 50 ML 100 MG IV (16:33)
[2019-12-04] MEDS: enoxaparin 30 mg/0.3 mL Syringe SUBCUT (16:44)
[2019-12-04 16:47] LABS: Glucose Point of Care 224 mg/dL (70-110)
[2019-12-04 19:32] VITALS: BP 150/71; PULSE 71; RESP 19; TEMP 36.4; O2SAT 97
[2019-12-04 20:09] LABS: Glucose Point of Care 239 mg/dL (70-110)
[2019-12-04] MEDS: acetaminophen 325 mg Tablet 650 MG PO (23:29)
[2019-12-05] VITALS: BP 147/76; PULSE 77; RESP 19; TEMP 36.6; O2SAT 96
[2019-12-05 04:00] VITALS: BP 147/69; PULSE 72; RESP 18; TEMP 36.8; O2SAT 97
[2019-12-05 05:45] LABS: Basophils % 0.2 %; Eosinophils # 0.1 10^3/uL (0.0-0.8); Eosinophils % 1.6 %; Hematocrit 37.3 % (37.0-47.0); Hemoglobin 11.8 g/dL (11.5-15.3); Lymphocytes # 2.1 10^3/uL (0.8-4.8); Mean Corpuscular HGB Conc 31.6 g/dL (30.0-36.0); Mean Corpuscular Hemoglobin 29.4 pg (28.0-34.0); Mean Corpuscular Volume 92.8 fL (81-99); Mean Platelet Volume 9.2 fL (7.4-10.4); Monocytes # 0.2 10^3/uL (0.2-0.9); Neutrophils # 2.6 10^3/uL (1.8-7.7); Neutrophils % 52.8 %; Nucleated Red Blood Cells % 0 %; Platelet Count 287 10^3/cmm (130-400); Red Blood Count 4.02 10^6/uL (4.1-5.3); Red Cell Distribution Width 16.9 % (12.1-15.1)
[2019-12-05 06:12] LABS: Alanine Aminotransferase 8 U/L (0-33); Alkaline Phosphatase 109 IU/L (35-105); Anion Gap 19.9 (5-19); Aspartate Amino Transferase 20 U/L (0-32); Blood Urea Nitrogen 18 mg/dL (8-23); Calcium 9.2 mg/dL (8.5-10.5); Carbon Dioxide 19 mmol/L (22-29); Chloride 98 mmol/L (98-107); Globulin 5.3 g/dL (1.3-4.6); Glucose 337 mg/dL (65-115); Magnesium 1.6 mg/dL (1.7-2.3); Osmolality Calculated 286 mOsm/kg (285-295); Phosphorus 3.8 mg/dL (2.5-4.5); Potassium 3.9 mmol/L (3.5-5.1); Sodium 133 mmol/L (136-145); Total Bilirubin 0.4 mg/dL (0.15-1.2); Total Protein 8.3 g/dL (6.6-8.7)
[2019-12-05 06:32] LABS: Glucose Point of Care 297 mg/dL (70-110)
[2019-12-05 08:00] VITALS: BP 151/67; PULSE 85; RESP 18; TEMP 36.8; O2SAT 96
[2019-12-05] MEDS: oxybutynin 5 mg Tablet PO (08:18)
[2019-12-05] MEDS: aspirin 81 mg EC Tablet PO (08:18)
[2019-12-05] MEDS: amlodipine 5 mg Tablet PO (08:18)
[2019-12-05] MEDS: pantoprazole DR 40 mg Tablet PO (08:18)
[2019-12-05] MEDS: levothyroxine 150 mcg Tablet PO (08:18)
[2019-12-05] MEDS: metoprolol tartrate 25 mg Tablet 12.5 MG PO (08:19)
[2019-12-05] MEDS: fluconazole premix 200 MG/100 ML PREMIX 50 MG IV (10:27)
[2019-12-05 11:02] LABS: Glucose Point of Care 396 mg/dL (70-110)
--- NOTE | 2019-12-05 11:10 | P.DS_ITS ---
Discharge Providers Date of Admission: 11/30/19 16:50 Date of Discharge: December 05, 2019 Attending Provider at Admission: Ana Lu MD Attending Provider at Discharge: Godfrey Cook MD Primary Care Provider: Pilo Alexis MD Diagnoses at Discharge Discharge Diagnosis (1) Sepsis: Status: Acute Qualifiers: Sepsis acute organ dysfunction status: with acute organ dysfunction Sepsis type: sepsis due to unspecified organism Severe sepsis acute organ dysfunction type: encephalopathy Qualified Code(s): A41.9 - Sepsis, unspecified organism; R65.20 - Severe sepsis without septic shock; G93.40 - Encephalopathy, unspecified (2) Pyelonephritis: Status: Acute (3) DM2 (diabetes mellitus, type 2): Status: Acute (4) Metabolic acidosis: Status: Acute (5) COPD (chronic obstructive pulmonary disease): Status: Acute (6) GERD (gastroesophageal reflux disease): Status: Acute (7) Cirrhosis of liver: Status: Acute (8) Dementia without behavioral disturbance: Status: Acute Reason for Visit Reason for Visit: AMS/ POSSIBLE UTI Hospital Course Discharge Summary: This is a 74-year-old female with a past medical history of type 2 diabetes mellitus on insulin, history of recurrent UTIs and pyelonephritis who presents [facility] due to complaints of altered mental status Patient was admitted to [facility] with septic encephalopathy secondary to obstructive pyelonephritis on the right, status post right ureteral stent placement and cystoscopy by Dr. Cardoso, she tolerated this well, she received Rocephin for antibiotic coverage, IV hydration, patient's blood culture so far have been unremarkable, urine cultures have been unremarkable, patient clinically improved. Patient was discharged on 7 remaining days of Bactrim, followed by [facility] for chronic suppressive therapy for chronic cystitis, with a follow-up with Dr. Cardoso in 2 weeks. On admission patient was also found to have an acute kidney injury, on discharge her creatinine was 1.7, creatinine clearance was 37, but her doses of her medications were adjusted. Her gabapentin dose was reduced by 50%, gabapentin 400 3 times daily. Her Lantus dose was reduced to Lantus 8 units twice daily. She needs to follow-up with her outpatient physician for adjustment of dosing of her medications especially her Lantus as she starts to resume her home diet regimen, and her insulin needs will increase. Patient's Invokana was discontinued on discharge as it is associated with increased risk of UTIs. Throughout patient's hospitalization, she had episodes of confusion, although her septic encephalopathy has significantly improved, responded well to antibiotics, cultures have been unremarkable, she continued to have episodes of confusion which we attributed to underlying dementia. Patient was discharged with a close follow-up with Dr. Carbajal as outpatient. Throughout her admission, it was [facility] for [facility] to [facility] due to deconditioning, but patient adamantly refused, patient was discharged home with home health care, and under the care of patient's daughter who is willing to take care of her. Physical Exam Narrative: EXAM NARRATIVE: Alert oriented x2, does have episodes of confusion, does answer most questions appropriately Const: COMMON NORMALS: no acute distress HENMT: COMMON NORMALS: normocephalic HEAD & SCALP: normocephalic Neck/C-Spine: COMMON NORMALS: no JVD Resp: COMMON NORMALS: normal respiratory effort, No retractions, No use of accessory muscles and clear to auscultation bilaterally AUSCULTATION: clear to auscultation bilaterally Cardio: COMMON NORMALS: no JVD, regular rate, regular rhythm, S1 normal heart sound present and S2 normal heart sound present RATE: regular rate RHYTHM: regular rhythm HEART SOUNDS: S1 normal heart sound present and S2 normal heart sound present GI: COMMON NORMALS: Normal to inspection, nondistended, normoactive bowel sounds present, Soft to palpation, non-tender, No hepatosplenomegaly present, no masses and no bruits PALPATION: Yes Soft to palpation and Yes No hepatosplenomegaly present Extremity: COMMON NORMALS: capillary refill normal, no clubbing, cyanosis or edema, no calf tenderness and no pedal edema Urinary Catheter Management^: Chow: Cath Placed During This Visit: yes, but has since been removed by the nurse Reason for Continuing Indwelling Catheter: Decision to DC Catheter Urinary Catheter Date of Insertion: 12/01/19 Urinary Catheter Time of Insertion: 13:56 Date Urinary Catheter Removed: 12/03/19 Time Urinary Catheter Discontinued: 15:00 Discharge Data Data Completed and Pending: Completed Studies During Hospitalization Category Date Time Status CT abdomen pelvis wo con 16974 Stat Cat Scan 11/30/19 12:[address] head wo con* 7 0450 Stat Cat Scan 11/30/19 12:19 Completed XR chest 1V sarina ble [id number] Stat Exams 11/30/19 12:19 Completed CV echo complete* [id number] Routine Ultrasound 12/01/19 10:12 Completed US abdomen limite d 13803 Stat Ultrasound 12/01/19 10:20 Completed Pending at discharge Category Date Time Status Blood Culture AM LABS Lab 12/02/19 04:12 Results Blood Culture Sta t Lab 11/30/19 13:02 Results Complete Blood Co unt w/Auto AM LABS Lab 12/06/19 04:00 Ordered Complete Blood Co unt w/Auto AM LABS Lab 12/07/19 04:00 Ordered Comprehensive Met abolic Panel AM LA BS Lab 12/06/19 04:00 Ordered Comprehensive Met abolic Panel AM LA BS Lab 12/07/19 04:00 Ordered Magnesium AM LABS Lab 12/06/19 04:00 Ordered Magnesium AM LABS Lab 12/07/19 04:00 Ordered Phosphorus AM LAB S Lab 12/06/19 04:00 Ordered Phosphorus AM LAB S Lab 12/07/19 04:00 Ordered Urine Culture Rou angelica Lab 11/30/19 23:35 Results Urine Culture Sta t Lab 11/30/19 12:20 Results Labs from last 24 hours 12/05/19 12/05/19 12/05/19 10:54 06:21 05:12 WBC RBC Hgb Hct MCV MCH MCHC RDW Plt Count MPV Neut % (Auto) Lymph % (Auto) Pope % (Auto) Eos % (Auto) Baso % (Auto) Neut # (Auto) Lymph # (Auto) Pope # (Auto) Eos # (Auto) Baso # (Auto) Nucleated RBC % (a uto) Nucleated RBCs # Sodium 133 L Potassium 3.9 Chloride 98 Carbon Dioxide 19 L Anion Gap 19.9 H BUN 18 Creatinine 1.7 H Glucose 337 H POC Glucose 396 297 Calculated Osmolal ity 286 Calcium 9.2 Phosphorus 3.8 Magnesium 1.6 L Total Bilirubin 0.4 AST 20 ALT 8 Alkaline Phosphata se 109 H Total Protein 8.3 Albumin 3.0 L Globulin 5.3 H 12/05/19 12/04/19 12/04/19 05:12 20:02 16:37 WBC 5.0 RBC 4.02 L Hgb 11.8 Hct 37.3 MCV 92.8 MCH 29.4 MCHC 31.6 RDW 16.9 H Plt Count 287 MPV 9.2 Neut % (Auto) 52.8 Lymph % (Auto) 42.0 Pope % (Auto) 3.0 Eos % (Auto) 1.6 Baso % (Auto) 0.2 Neut # (Auto) 2.6 Lymph # (Auto) 2.1 Pope # (Auto) 0.2 Eos # (Auto) 0.1 Baso # (Auto) 0.0 Nucleated RBC % (a uto) 0 Nucleated RBCs # 0.0 Sodium Potassium Chloride Carbon Dioxide Anion Gap BUN Creatinine Glucose POC Glucose 239 224 Calculated Osmolal ity Calcium Phosphorus Magnesium Total Bilirubin AST ALT Alkaline Phosphata se Total Protein Albumin Globulin 12/04/19 11:20 WBC RBC Hgb Hct MCV MCH MCHC RDW Plt Count MPV Neut % (Auto) Lymph % (Auto) Pope % (Auto) Eos % (Auto) Baso % (Auto) Neut # (Auto) Lymph # (Auto) Pope # (Auto) Eos # (Auto) Baso # (Auto) Nucleated RBC % (a uto) Nucleated RBCs # Sodium Potassium Chloride Carbon Dioxide Anion Gap BUN Creatinine Glucose POC Glucose 414 Calculated Osmolal ity Calcium Phosphorus Magnesium Total Bilirubin AST ALT Alkaline Phosphata se Total Protein Albumin Globulin Vitals: Last Vital Signs Temp 98.2 F 12/05/19 08:00 Pulse 85 12/05/19 08:00 Resp 18 12/05/19 08:00 BP 151/67 12/05/19 08:00 Pulse Ox 96 12/05/19 08:00 Discharge Plan Discharge Patient Disposition: Home, Self-Care Condition: Stable Prescriptions: New amlodipine 5 mg Tablet 5 mg PO DAILY 30 Days Qty: 30 RF: 0 Bactrim DS 800-160 mg tablet 1 tab PO BID 7 Days Qty: 14 RF: 0 Macrobid 100 mg capsule 100 mg PO DAILY 30 Days Qty: 30 RF: 0 Continued ferrous sulfate 325 mg (65 mg iron) tablet 325 mg PO DAILY Qty: 30 RF: 3 (DME) pen needle, diabetic [Pen Needle] 31 gauge x 5/16 needle See Rx Instructions .ROUTE .MEDSUPPLY Qty: 100 RF: 12 duloxetine 30 mg capsule,delayed release(DR/EC) 60 mg PO DAILY RF: 0 omeprazole 20 mg capsule,delayed release(DR/EC) 20 mg PO DAILY Qty: 30 RF: 3 albuterol sulfate [ProAir HFA] 90 mcg/actuation HFA aerosol inhaler 2 puff INHALATION Q6H PRN (Reason: shortness of breath) Qty: 8.5 RF: 3 Victoza 3-Porter 0.6 mg/0.1 mL (18 mg/3 mL) pen injector 1.8 mg SUBCUT Q24H Qty: 9 RF: 3 oxybutynin chloride 5 mg tablet 5 mg PO DAILY Qty: 30 RF: 3 levothyroxine 150 mcg capsule 150 mcg PO DAILY Qty: 30 RF: 3 allopurinol 100 mg tablet 100 mg PO DAILY Qty: 30 RF: 3 metoprolol tartrate [Lopressor] 50 mg tablet 12.5 mg PO BID Qty: 60 RF: 3 Adult Aspirin Regimen 81 mg tablet,delayed release (DR/EC) 81 mg PO DAILY RF: 0 Humalog KwikPen Insulin 100 unit/mL insulin pen See Rx Instructions .ROUTE .COMPLEX RF: 0 Changed Lantus U-100 Insulin 100 unit/mL solution 8 unit SUBCUT BID Qty: 10 RF: 6 gabapentin 800 mg tablet 400 mg PO TID Qty: 90 RF: 3 Discontinued spironolactone 25 mg tablet 25 mg PO DAILY Qty: 30 RF: 3 Invokana 300 mg tablet 300 mg PO QAM Qty: 30 RF: 3 Discharge Orders: Discharge Order (Routine); Ordered 12/05/19 Ordered By: Godfrey Cook Other Ambulatory Orders: Complete Blood Count w/Auto (Routine) Timeframe: 1 Week Location: Determined by Patient Ordered By: Godfrey Cook Comprehensive Metabolic Panel (Routine) Timeframe: 1 Week Facility: [facility] - Location: Lab - Main Lab Ordered By: Godfrey Cook Referrals: [facility] [place] Home Care ([facility]) [Outside] Jayda Carbajal MD [Physician] - 12/18/19 2:45 pm Pilo Alexis MD [Primary Care Provider] - 12/11/19 3:15 pm Luis Cardoso MD [Physician] - 12/22/19 10:45 am Discharge Diet: Cardiac and Diabetic Discharge Activity: Resume usual activity Patient Instructions: Sulfamethoxazole/Trimethoprim (By mouth), Amlodipine (By mouth), Nitrofurantoin Combination (By mouth), Acute Kidney Injury (DC), Urinary Tract Infection in Women (DC), Dementia (GEN), Chronic Urinary Retention in Women (GEN), Ureteral Stent Placement (DC) Activity Restrictions/Additional Instructions: -For your acute kidney injury please drink plenty of electrolyte balance fluids -Creatinine on discharge was 1.7 -For your right ureteral stent placement please follow-up with Dr. Cardoso in 1 week -For your infection, please use Bactrim for the next 7 days -After Bactrim has finished start Macrobid -For type 2 diabetes mellitus, your Lantus dose has been decreased to 8 units twice daily -Check blood sugars 3 times daily -If blood sugar greater than 500, call primary care blood sugar less than 60, drink or juice or eat a hard candy and call primary care -Your dose of Lantus might be required to be increased in the next few days as your kidney function improves -Please follow-up with Dr. Carbajal Discharge Attestations Time Spent in Discharge Care*: less than 30 min Quality Metrics Clinical Quality Measures During this hospital stay, did patient experience: None Coding Level of Care Code Acute Small Machine Bindery Operator for Chg Fwd Exam Detailed Diagnoses Sepsis A41.9; R65.20; G93.40 Sepsis acute organ dysfunction status: with acute organ dysfunction Sepsis type: sepsis due to unspecified organism Severe sepsis acute organ dysfunction type: encephalopathy Pyelonephritis N12 DM2 (diabetes mellitus, type 2) E11.9 Metabolic acidosis E87.2 COPD (chronic obstructive pulmonary disease) J44.9 GERD (gastroesophageal reflux disease) K21.9 Cirrhosis of liver K74.60 Dementia without behavioral disturbance F03.90
[2019-12-05 11:37] VITALS: BP 160/69; PULSE 73; RESP 18; TEMP 36.7; O2SAT 100
--- NOTE | 2019-12-05 11:52 | DCPLANNER ---
Pg 2 of IM updated and reviewed with pt. We will also phone the child that pt lives with. Copy provided.
[2019-12-05 15:10] VITALS: BP 160/69; PULSE 73; RESP 18; TEMP 36.7; O2SAT 100
== END 2019-12-05 14:00 | disposition home or self-care (01) | DRG 853 ==
LOC: ER 12:36 → ICU 16:50 → MEDSURG 12-02 19:10
PROVIDERS: Family Medicine; Internal Medicine; Urology; Admitting Provider Student in an Organized Health Care Education/Training Program; PCP Internal Medicine; Visit Provider Family Medicine
PROC: 0TJB8ZZ Inspection of Bladder, Via Natural or Artificial Opening Endoscopic (ICD-10-PCS; CPT 52000; principal; 2019-12-01 12:50)
PROC: 0T768DZ Dilation of Right Ureter with Intraluminal Device, Via Natural or Artificial Opening Endoscopic (ICD-10-PCS; CPT 50605; 2019-12-01 12:50)
DX: A41.9 Sepsis, unspecified organism (principal); G93.41 Metabolic encephalopathy; N10 Acute pyelonephritis; E87.2 Acidosis; N17.9 Acute kidney failure, unspecified; R65.20 Severe sepsis without septic shock; F03.90 Unspecified dementia, unspecified severity, without behavioral disturbance, psychotic disturbance, mood disturbance, and anxiety; K74.60 Unspecified cirrhosis of liver; J44.9 Chronic obstructive pulmonary disease, unspecified; K21.9 Gastro-esophageal reflux disease without esophagitis; I10 Essential (primary) hypertension; E11.9 Type 2 diabetes mellitus without complications; Z79.4 Long term (current) use of insulin; Z87.440 Personal history of urinary (tract) infections; D64.9 Anemia, unspecified; M79.7 Fibromyalgia; Z79.82 Long term (current) use of aspirin
CPT/HCPCS: 12345; 36415; 36416; 36430; 36600; 51702; 70450; 71045; 74176; 76000; 76705; 80051; 80053; 80202; 81001; 82009; 82140; 82274; 82550; 82607; 82746; 82810; 82962; 83036; 83540; 83605; 83690; 83735; 83986; 84100; 84443; 84484; 85025; 86850; 86900; 86920; 87040; 87086; 87106; 87205; 93005; 93306; 94640; 94660; 96372; 96375; 97110; 97116; 97163; 97530; 99283; C2625; J0131; J0330; J0696; J1450; J1630; J1650; J1815; J2001; J2370; J2405; J2543; J3010; J3370; J3490; J7030; J7050; J7611; J7644; P9016

== ENCOUNTER 2019-12-11 13:59 | Inpatient (IN) | payer MEDICARE, MEDICAID, SELFPAY ==
[2019-12-11 14:00] VITALS: BP 146/66; PULSE 98; RESP 16; TEMP 36.8; O2SAT 96; BMI 29.9
--- NOTE | 2019-12-11 14:11 | W.ED.FEMALGU ---
Documented by User: NUNO Davidson 12/11/19 16:50 HPI - Female Genitourinary General: Chief complaint: Urogenital-Female Stated complaint: LIGHT VAG BLEED Time Seen by Provider: 12/11/19 14:03 History of Present Illness: HPI Narrative: Patient is a 74-year-old female who comes to the ED with blood in the urine. Patient has a past medical history of chronic cystitis, dementia, type 2 diabetes, COPD, GERD and cirrhosis. Patient was admitted to [facility] with septic encephalopathy secondary to obstructive pyelonephritis on November 29 and was discharged from hospital on December 04. It was highly recommended by at discharge to go to short term nursing care facility. Patient refused and wanted to go back home where her daughter can take care of her and she can receive home health there. Patient states she has blood in her urine that started couple days ago along with a burning pain when she urinates. Associated symptoms: Deny abdominal pain, headache(s) or nausea Review of Systems Const: Denies: fever(s), chills or fatigue Eyes: Denies: change in vision or eye discomfort ENMT: Denies: throat pain, odynophagia, nasal discharge or nasal congestion Card: Denies: chest pain, palpitations, edema, swelling of feet/ankles, dyspnea on exertion or orthopnea Resp: Denies: dyspnea, productive cough or non-productive cough GI: Denies: abdominal pain, nausea, vomiting, diarrhea, constipation or hematochezia : Reports: dysuria and hematuria; Denies: flank pain Musc: Denies: neck pain, back pain or extremity swelling Skin/Breast: Denies: rash or new lesions Neuro: Denies: headache(s), numbness in extremities or weakness in extremities PFS ED PFSH: Medical History Cirrhosis of liver COPD (chronic obstructive pulmonary disease) Dementia without behavioral disturbance Diabetes mellitus Fibromyalgia Frailty GERD (gastroesophageal reflux disease) Hypertension Surgical History S/P cataract extraction S/P cholecystectomy Status post carpal tunnel release of both wrists Family History Other Cancer Diabetes Heart disease Social History Smoking and tobacco status: never smoked Alcohol intake: never Marital status: / History of recent travel: No Current gender identity: Female Physical Exam Const: COMMON NORMALS: alert ORIENTATION/CONSCIOUSNESS: Yes oriented to person HENMT: COMMON NORMALS: normocephalic HEAD & SCALP: normocephalic MOUTH: Normal oral and palatal mucosa present THROAT: posterior oropharynx normal and uvula midline Eye: COMMON NORMALS: Equal, round and reactive pupils present PUPIL: Yes Equal, round and reactive pupils present Neck/C-Spine: COMMON NORMALS: supple GENERAL: Yes normal visual inspection Resp: COMMON NORMALS: normal respiratory effort, No retractions, No use of accessory muscles and clear to auscultation bilaterally AUSCULTATION: clear to auscultation bilaterally Cardio: COMMON NORMALS: regular rate, regular rhythm, S1 normal heart sound present, S2 normal heart sound present, No gallops present (Cardio), No clicks present (Cardio), No murmurs present (Cardio) and Peripheral pulses 2+ throughout RATE: regular rate RHYTHM: regular rhythm HEART SOUNDS: S1 normal heart sound present and S2 normal heart sound present PERIPHERAL PULSES: Peripheral pulses 2+ throughout GI: COMMON NORMALS: Normal to inspection, nondistended, normoactive bowel sounds present, Soft to palpation and no masses PALPATION: Yes Soft to palpation and Yes Tenderness to palpation present (GI) (mild lower L and R abdom tenderness) : COMMON NORMALS: Yes no CVA tenderness BLADDER/KIDNEY EXAM: Yes no CVA tenderness Back/Pelvis: COMMON NORMALS: no CVA tenderness Extremity: COMMON NORMALS: normal to inspection and no pedal edema Neuro: COMMON NORMALS: moves all extremities SENSORIUM/ORIENTATION: Yes alert, Yes oriented to person and Yes Orientation impaired (Is not oriented to time or place.) Skin: COMMON NORMALS: no rashes or lesions noted GENERAL SKIN EXAM: no rashes or lesions noted and dry skin Course Vital Signs: Vital signs: Vital Signs Temperature 98.2 F 12/11/19 14:00 Pulse Rate 98 12/11/19 14:00 Respiratory Rate 16 12/11/19 14:00 Blood Pressure 146/66 12/11/19 14:00 Pulse Oximetry 96 12/11/19 14:00 MDM - Female MDM Narrative: Medical decision making narrative: Patient is a 74-year-old female who comes to the ED with blood in the urine and a burning sensation when she urinates. Patient was recently hospitalized for 5 days back on November 29 for sepsis secondary to Pyelonephritis. Urinalysis showed UTI, hemoglobin of 8.2, sodium of 124, creatinine of 2.3. Patient's glucose level was 613. I discussed patient case with Dr. Sepulveda and he will be taking over care of patient. Lab Data: Attestation: I reviewed the patient's lab results. Labs: Lab Results 12/11/19 12/11/19 12/11/19 Range/Units 14:35 14:35 15:00 WBC 4.9 (4.0-10.0) 10^3/ uL RBC 2.86 L (4.1-5.3) 10^6/u L Hgb 8.2 L (11.5-15.3) g/dL Hct 27.5 L (37.0-47.0) % MCV 96.2 (81-99) fL MCH 28.7 (28.0-34.0) pg MCHC 29.8 L (30.0-36.0) g/dL RDW 16.7 H (12.1-15.1) % Plt Count 281 (130-400) 10^3/c mm MPV 9.9 (7.4-10.4) fL Neut % (Auto) 52.6 % Lymph % (Auto) 33.0 % [place] % (Auto) 7.2 % Eos % (Auto) 6.6 % Baso % (Auto) 0.2 % Neut # (Auto) 2.6 (1.8-7.7) 10^3/u L Lymph # (Auto) 1.6 (0.8-4.8) 10^3/u L [place] # (Auto) 0.4 (0.2-0.9) 10^3/u L Eos # (Auto) 0.3 (0.0-0.8) 10^3/u L Baso # (Auto) 0.0 (0.0-0.1) 10^3/u L Nucleated RBC % (a uto) 0 % Nucleated RBCs # 0.0 /100WBC Sodium 124 L (136-145) mmol/L Potassium 4.1 (3.5-5.1) mmol/L Chloride 93 L (98-107) mmol/L Carbon Dioxide 17 L (22-29) mmol/L Anion Gap 18.1 (5-19) BUN 25 H (8-23) mg/dL Creatinine 2.3 H (0.5-0.9) mg/dL Glucose 613 H* (65-115) mg/dL POC Glucose (70-110) mg/dL Calculated Osmolal ity 283 L (285-295) mOsm/k g Calcium 9.0 (8.5-10.5) mg/dL Total Bilirubin 0.4 (0.15-1.2) mg/dL AST 24 (0-32) U/L ALT 11 (0-33) U/L Alkaline Phosphata se 143 H (35-105) IU/L Total Protein 9.1 H (6.6-8.7) g/dL Albumin 3.2 L (3.5-5.2) g/dL Globulin 5.9 H (1.3-4.6) g/dL Urine Color Red (Yellow) Urine Appearance Cloudy (CLEAR) Urine pH 8 H (5-7) Ur Specific Gravit y 1.005 (1.005-1.030) Urine Protein 1+ H (Negative) Urine Glucose (UA) 4+ H (Normal) Urine Ketones Negative (Negative) Urine Blood 3+ H (Negative) Urine Nitrate Negative (Negative) Urine Bilirubin Neg (NEGATIVE) Prot Sulfosalicyli c Acd Positive (Negative) Urine Urobilinogen Norm (Negative) mg/dL Ur Leukocyte Roxie ase 2+ H (Negative) Urine RBC 25-40 H (0-2) /hpf Urine WBC 55-80 H (0-5) /hpf Ur Squamous Epith Cells 0-4 H (0-5) Urine Bacteria 4+ H (NONE) Urine Yeast 3+ H 12/11/19 Range/Units 16:58 WBC (4.0-10.0) 10^3/ uL RBC (4.1-5.3) 10^6/u L Hgb (11.5-15.3) g/dL Hct (37.0-47.0) % MCV (81-99) fL MCH (28.0-34.0) pg MCHC (30.0-36.0) g/dL RDW (12.1-15.1) % Plt Count (130-400) 10^3/c mm MPV (7.4-10.4) fL Neut % (Auto) % Lymph % (Auto) % [place] % (Auto) % Eos % (Auto) % Baso % (Auto) % Neut # (Auto) (1.8-7.7) 10^3/u L Lymph # (Auto) (0.8-4.8) 10^3/u L [place] # (Auto) (0.2-0.9) 10^3/u L Eos # (Auto) (0.0-0.8) 10^3/u L Baso # (Auto) (0.0-0.1) 10^3/u L Nucleated RBC % (a uto) % Nucleated RBCs # /100WBC Sodium (136-145) mmol/L Potassium (3.5-5.1) mmol/L Chloride (98-107) mmol/L Carbon Dioxide (22-29) mmol/L Anion Gap (5-19) BUN (8-23) mg/dL Creatinine (0.5-0.9) mg/dL Glucose (65-115) mg/dL POC Glucose 472 (70-110) mg/dL Calculated Osmolal ity (285-295) mOsm/k g Calcium (8.5-10.5) mg/dL Total Bilirubin (0.15-1.2) mg/dL AST (0-32) U/L ALT (0-33) U/L Alkaline Phosphata se (35-105) IU/L Total Protein (6.6-8.7) g/dL Albumin (3.5-5.2) g/dL Globulin (1.3-4.6) g/dL Urine Color (Yellow) Urine Appearance (CLEAR) Urine pH (5-7) Ur Specific Gravit y (1.005-1.030) Urine Protein (Negative) Urine Glucose (UA) (Normal) Urine Ketones (Negative) Urine Blood (Negative) Urine Nitrate (Negative) Urine Bilirubin (NEGATIVE) Prot Sulfosalicyli c Acd (Negative) Urine Urobilinogen (Negative) mg/dL Ur Leukocyte Roxie ase (Negative) Urine RBC (0-2) /hpf Urine WBC (0-5) /hpf Ur Squamous Epith Cells (0-5) Urine Bacteria (NONE) Urine Yeast Discharge Plan Discharge Patient Disposition: Admitted As Inpatient Clinical Impression: Cystitis, Hyperglycemia Condition: Stable Referrals: Pilo Alexis MD [Primary Care Provider] - Coding Level of Care Code ED Silica Filter Operator for Chg Fwd Exam Comprehensive Documented by User: Sy Sepulveda MD 12/11/19 17:14 HPI - Female Genitourinary General: Chief complaint: Urogenital-Female Stated complaint: LIGHT VAG BLEED Time Seen by Provider: 12/11/19 14:03 [facility] ED PFSH: Medical History Cirrhosis of liver COPD (chronic obstructive pulmonary disease) Dementia without behavioral disturbance Diabetes mellitus Fibromyalgia Frailty GERD (gastroesophageal reflux disease) Hypertension Surgical History S/P cataract extraction S/P cholecystectomy Status post carpal tunnel release of both wrists Family History Other Cancer Diabetes Heart disease Social History Smoking and tobacco status: never smoked Alcohol intake: never Marital status: / History of recent travel: No Current gender identity: Female Course Vital Signs: Vital signs: Vital Signs Temperature 98.2 F 12/11/19 14:00 Pulse Rate 98 12/11/19 14:00 Respiratory Rate 16 12/11/19 14:00 Blood Pressure 146/66 12/11/19 14:00 Pulse Oximetry 96 12/11/19 14:00 MDM - Female MDM Narrative: Medical decision making narrative: I saw this patient with above midlevel. Patient does have an acute cystitis along with hyperglycemia. Her hyperglycemia is likely due to noncompliance I spoke to her she does seem confused and I believe she is not been taking her meds. Spoke to hospitalist will admit to treat her cystitis along with her hyperglycemia. Patient has been stable while in the ER. Hospitalist requested CT of abdomen and CT head. Lab Data: Labs: Lab Results 12/11/19 12/11/19 12/11/19 Range/Units 14:35 14:35 15:00 WBC 4.9 (4.0-10.0) 10^3/ uL RBC 2.86 L (4.1-5.3) 10^6/u L Hgb 8.2 L (11.5-15.3) g/dL Hct 27.5 L (37.0-47.0) % MCV 96.2 (81-99) fL MCH 28.7 (28.0-34.0) pg MCHC 29.8 L (30.0-36.0) g/dL RDW 16.7 H (12.1-15.1) % Plt Count 281 (130-400) 10^3/c mm MPV 9.9 (7.4-10.4) fL Neut % (Auto) 52.6 % Lymph % (Auto) 33.0 % [place] % (Auto) 7.2 % Eos % (Auto) 6.6 % Baso % (Auto) 0.2 % Neut # (Auto) 2.6 (1.8-7.7) 10^3/u L Lymph # (Auto) 1.6 (0.8-4.8) 10^3/u L [place] # (Auto) 0.4 (0.2-0.9) 10^3/u L Eos # (Auto) 0.3 (0.0-0.8) 10^3/u L Baso # (Auto) 0.0 (0.0-0.1) 10^3/u L Nucleated RBC % (a uto) 0 % Nucleated RBCs # 0.0 /100WBC Sodium 124 L (136-145) mmol/L Potassium 4.1 (3.5-5.1) mmol/L Chloride 93 L (98-107) mmol/L Carbon Dioxide 17 L (22-29) mmol/L Anion Gap 18.1 (5-19) BUN 25 H (8-23) mg/dL Creatinine 2.3 H (0.5-0.9) mg/dL Glucose 613 H* (65-115) mg/dL POC Glucose (70-110) mg/dL Calculated Osmolal ity 283 L (285-295) mOsm/k g Calcium 9.0 (8.5-10.5) mg/dL Total Bilirubin 0.4 (0.15-1.2) mg/dL AST 24 (0-32) U/L ALT 11 (0-33) U/L Alkaline Phosphata se 143 H (35-105) IU/L Total Protein 9.1 H (6.6-8.7) g/dL Albumin 3.2 L (3.5-5.2) g/dL Globulin 5.9 H (1.3-4.6) g/dL Urine Color Red (Yellow) Urine Appearance Cloudy (CLEAR) Urine pH 8 H (5-7) Ur Specific Gravit y 1.005 (1.005-1.030) Urine Protein 1+ H (Negative) Urine Glucose (UA) 4+ H (Normal) Urine Ketones Negative (Negative) Urine Blood 3+ H (Negative) Urine Nitrate Negative (Negative) Urine Bilirubin Neg (NEGATIVE) Prot Sulfosalicyli c Acd Positive (Negative) Urine Urobilinogen Norm (Negative) mg/dL Ur Leukocyte Roxie ase 2+ H (Negative) Urine RBC 25-40 H (0-2) /hpf Urine WBC 55-80 H (0-5) /hpf Ur Squamous Epith Cells 0-4 H (0-5) Urine Bacteria 4+ H (NONE) Urine Yeast 3+ H /15/20 Range/Units 16:58 WBC (4.0-10.0) 10^3/ uL RBC (4.1-5.3) 10^6/u L Hgb (11.5-15.3) g/dL Hct (37.0-47.0) % MCV (81-99) fL MCH (28.0-34.0) pg MCHC (30.0-36.0) g/dL RDW (12.1-15.1) % Plt Count (130-400) 10^3/c mm MPV (7.4-10.4) fL Neut % (Auto) % Lymph % (Auto) % [place] % (Auto) % Eos % (Auto) % Baso % (Auto) % Neut # (Auto) (1.8-7.7) 10^3/u L Lymph # (Auto) (0.8-4.8) 10^3/u L [place] # (Auto) (0.2-0.9) 10^3/u L Eos # (Auto) (0.0-0.8) 10^3/u L Baso # (Auto) (0.0-0.1) 10^3/u L Nucleated RBC % (a uto) % Nucleated RBCs # /100WBC Sodium (136-145) mmol/L Potassium (3.5-5.1) mmol/L Chloride (98-107) mmol/L Carbon Dioxide (22-29) mmol/L Anion Gap (5-19) BUN (8-23) mg/dL Creatinine (0.5-0.9) mg/dL Glucose (65-115) mg/dL POC Glucose 472 (70-110) mg/dL Calculated Osmolal ity (285-295) mOsm/k g Calcium (8.5-10.5) mg/dL Total Bilirubin (0.15-1.2) mg/dL AST (0-32) U/L ALT (0-33) U/L Alkaline Phosphata se (35-105) IU/L Total Protein (6.6-8.7) g/dL Albumin (3.5-5.2) g/dL Globulin (1.3-4.6) g/dL Urine Color (Yellow) Urine Appearance (CLEAR) Urine pH (5-7) Ur Specific Gravit y (1.005-1.030) Urine Protein (Negative) Urine Glucose (UA) (Normal) Urine Ketones (Negative) Urine Blood (Negative) Urine Nitrate (Negative) Urine Bilirubin (NEGATIVE) Prot Sulfosalicyli c Acd (Negative) Urine Urobilinogen (Negative) mg/dL Ur Leukocyte Roxie ase (Negative) Urine RBC (0-2) /hpf Urine WBC (0-5) /hpf Ur Squamous Epith Cells (0-5) Urine Bacteria (NONE) Urine Yeast Discharge Plan Discharge Patient Disposition: Admitted As Inpatient Clinical Impression: Cystitis, Hyperglycemia Condition: Stable Referrals: Pilo Alexis MD [Primary Care Provider] - Coding Level of Care Code ED Silica Filter Operator for Chg Fwd Exam Comprehensive
[2019-12-11 14:58] LABS: Alanine Aminotransferase 11 U/L (0-33); Albumin Level 3.2 g/dL (3.5-5.2); Alkaline Phosphatase 143 IU/L (35-105); Anion Gap 18.1 (5-19); Aspartate Amino Transferase 24 U/L (0-32); Blood Urea Nitrogen 25 mg/dL (8-23); Carbon Dioxide 17 mmol/L (22-29); Chloride 93 mmol/L (98-107); Globulin 5.9 g/dL (1.3-4.6); Osmolality Calculated 283 mOsm/kg (285-295); Potassium 4.1 mmol/L (3.5-5.1); Sodium 124 mmol/L (136-145); Total Bilirubin 0.4 mg/dL (0.15-1.2); Total Protein 9.1 g/dL (6.6-8.7)
[2019-12-11 15:06] LABS: Glucose 613 mg/dL (65-115)
--- NOTE | 2019-12-11 15:06 | PC.NURSE ---
Critical Lab Blood glucose 617
[2019-12-11 15:23] LABS: Bilirubin Urine Neg (NEGATIVE); Blood Urine 3+ (Negative); Glucose Urine UA 4+ (Normal); Ketones Urine Negative (Negative); Leukocyte Esterase Urine 2+ (Negative); Nitrate Urine Negative (Negative); Protein Urine 1+ (Negative); Specific Gravity, Urine 1.005 (1.005-1.030); Sulfosalicylic Acid Urine Positive (Negative); Urine Appearance Cloudy (CLEAR); Urine Color Red (Yellow); Urobilinogen Urine Norm (Negative); pH Urine 8 (5-7)
[2019-12-11 15:25] LABS: Add Urine Culture? Yes; Bacteria Urine 4+; RBC Urine 25-40 /hpf (0-2); Squamous Epithelial Cell Urine 0-4 (0-5); WBC Urine 55-80 /hpf (0-5)
[2019-12-11] MEDS: cefTRIAXone 2,000 MG in sodium chloride 0.9% (plus) 50 ML 100 MG IV (15:50)
[2019-12-11] MEDS: insulin regular-human 100 units/1 mL 10 UNIT IVP (15:51)
[2019-12-11] MEDS: sodium chloride 0.9% 1,000 ML 999 ML IV ×2 (15:51→17:27)
[2019-12-11 16:25] LABS: Basophils % 0.2 %; Eosinophils # 0.3 10^3/uL (0.0-0.8); Eosinophils % 6.6 %; Hematocrit 27.5 % (37.0-47.0); Hemoglobin 8.2 g/dL (11.5-15.3); Lymphocytes # 1.6 10^3/uL (0.8-4.8); Mean Corpuscular HGB Conc 29.8 g/dL (30.0-36.0); Mean Corpuscular Hemoglobin 28.7 pg (28.0-34.0); Mean Corpuscular Volume 96.2 fL (81-99); Mean Platelet Volume 9.9 fL (7.4-10.4); Monocytes # 0.4 10^3/uL (0.2-0.9); Monocytes % 7.2 %; Neutrophils # 2.6 10^3/uL (1.8-7.7); Neutrophils % 52.6 %; Nucleated Red Blood Cells % 0 %; Platelet Count 281 10^3/cmm (130-400); Red Blood Count 2.86 10^6/uL (4.1-5.3); Red Cell Distribution Width 16.7 % (12.1-15.1); White Blood Count 4.9 10^3/uL (4.0-10.0)
[2019-12-11 17:03] LABS: Glucose Point of Care 472 mg/dL (70-110)
--- NOTE | 2019-12-11 17:05 | CTR_ITS ---
PROCEDURE INFORMATION: Exam: CT Abdomen And Pelvis Without Contrast Exam date and time: 12/11/2019 6:03 PM Age: 74 years old Clinical indication: Abdominal pain; Acute; Prior surgery; Surgery date: 6+ months; Surgery type: Gb; Additional info: Abd pain TECHNIQUE: Imaging protocol: Computed tomography of the abdomen and pelvis without contrast. Radiation optimization: All CT scans at this facility use at least one of these dose optimization techniques: automated exposure control; mA and/or kV adjustment per patient size (includes targeted exams where dose is matched to clinical indication); or iterative reconstruction. COMPARISON: No relevant prior studies available. RADIATION DOSE METRICS: Total DLP: 1774.3 mGy-cm FINDINGS: Lungs: 9 mm subpleural nodule in the right middle lobe. Mild basilar atelectasis. Liver: Normal. No mass. Gallbladder and bile ducts: Cholecystectomy. The bile ducts are normal. Pancreas: The pancreas is atrophic. Spleen: Normal. No splenomegaly. Adrenals: Normal. No mass. Kidneys and ureters: Right ureteral stent with proximal pigtail in the right renal pelvis and distal pigtail in the urinary bladder. The kidneys are otherwise unremarkable. Stomach and bowel: Mild gaseous prominence of the proximal and transverse colon. The distal colon and rectum are decompressed. Small scattered air-fluid levels in the small bowel without obstruction. The stomach is unremarkable. Appendix: The appendix is not visualized. Intraperitoneal space: Unremarkable. No free air. Trace ascites. Vasculature: Splenic hilar varices with suspected left splenorenal shunt. Retroaortic left renal vein. Lymph nodes: Subcentimeter retroperitoneal and iliac chain lymph nodes are most likely reactive. Bladder: Chow catheter in a decompressed urinary bladder. Reproductive: Unremarkable as visualized. Bones/joints: Chronic L4 compression fracture. Soft tissues: Mild body wall edema. CT/CT abdomen pelvis wo con [id number] IMPRESSION: 1. Findings suggest mild ileus or enterocolitis. 2. Splenic hilar varices and probable left splenorenal shunt. This could indicate portal venous hypertension. 3. Right ureteral stent without hydronephrosis. 4. 9 mm right lung nodule. For both low risk and high risk patients, consider CT at 3 months, PET/CT or biopsy. (Leigh Ann et al., Fleischner Society, 2017) 5. Trace ascites. Radiation Dose CTDIVOL = (mGy): DLP = 1774.3 (mGy-cm)
--- NOTE | 2019-12-11 17:07 | CTR_ITS ---
PROCEDURE INFORMATION: Exam: CT Head Without Contrast Exam date and time: 12/11/2019 6:03 PM Age: 74 years old Clinical indication: Altered mental status/memory loss; Confusion or disorientation; Additional info: AMS TECHNIQUE: Imaging protocol: Computed tomography of the head without contrast. Radiation optimization: All CT scans at this facility use at least one of these dose optimization techniques: automated exposure control; mA and/or kV adjustment per patient size (includes targeted exams where dose is matched to clinical indication); or iterative reconstruction. COMPARISON: No relevant prior studies available. FINDINGS: Examination is limited by artifacts from patient motion. There is moderate low density in the bilateral periventricular white matter which may represent chronic small vessel ischemic disease in the appropriate clinical setting. The possibility of superimposed acute infarctions cannot be excluded; consider MRI brain (including diffusion images) for further assessment if clinically warranted and if patient has no contraindication to MRI. There are prominent intracranial arterial calcifications. There is moderate cerebral cortical volume loss. Ventricles do not appear significantly dilated. No depressed calvarial fracture is demonstrated. Visualized paranasal sinuses and mastoid air cells demonstrate no significant opacification. There is aeration of the left anterior clinoid process and the optic nerve traverses this region. CT/CT head wo con* [id number] IMPRESSION: Examination is limited by artifacts from patient motion. Probable chronic ischemic changes as discussed above. Total DLP: 1494.96 mGy-cm Radiation Dose CTDIVOL = (mGy): DLP = 1494.96 (mGy-cm)
[2019-12-11] MEDS: insulin regular-human 100 units/1 mL 5 UNIT IVP (17:27)
--- NOTE | 2019-12-11 17:36 | P.HP_ITS ---
Providers/Chief Complaint Admitting Physician: Ana Lu MD Primary Care Provider: Pilo Alexis MD Chief Complaint: LIGHT VAG BLEED History of Present Illness Melba Newman is a 74 year old female recently admitted here about a week ago with obstructive pyelonpehritis with ahistory of pyelopnephritis and fungemia also in September 2019. Most recent admission was with negative blood cx. She required urgent stent placement into the R ureter with significant improvement in sepsis. her course was c/b metabolic encephalaptahy from sepsis, which eventually improved. Urine cx was with polymicorbial growth, blood cx remained negative. Her recen baseline mentation appears to have been detreiortaing since of her and daughter in june and september respectively. She returns to ER today via EMS with c/o worsned hematuria. Per discussion with her and her son in law, she had continued to have some hematuria since returning home last week, but today was noted to have bleeding with blood clots that soaked through her underwear. Per discussion with ER nursing, her urine today appeare dto have been red colored with blood clots. No c/o fever. No c/o worsened mental status. Renal function appears to be baseline. Blood sugar >600 without kentonuria or high anion gap, improving with insulin currently. Review of Systems General: Reports: 10 or more systems reviewed and unremarkable except in HPI and below Const: Denies: fever(s), chills or body aches Eyes: Denies: change in vision, blurry vision or photophobia ENMT: Reports: hoarseness; Denies: throat pain, enlarged tonsils, odynophagia or nasal congestion Card: Denies: chest pain, palpitations, irregular heart rhythm, edema, swelling of feet/ankles, lightheadedness, pre-syncope, dyspnea on exertion or orthopnea Resp: Denies: dyspnea, productive cough, non-productive cough, wheezing, stridor, pain on inspiration, change in phlegm color, hemoptysis or chest congestion GI: Denies: abdominal pain, nausea, vomiting, hematemesis, coffee ground emes is, dysphagia, heartburn, diarrhea, constipation, GI cramping, change in stool character, hematochezia or melena : Denies: flank pain, difficulty voiding, dysuria, urinary frequency, urinary urgency, urinary hesitancy or hematuria Musc: Denies: neck pain, back pain, extremity pain, joint swelling, joint warmth or deformity Neuro: Denies: headache(s), numbness in extremities, weakness in extremities, sensory changes, difficulty walking, frequent falls, dizziness, vertigo, behavioral changes, Slurred speech present or seizure-like activity Psych: Denies: anxiety, depression, suicidal ideation or homicidal ideation Endo: Denies: polyuria, polydipsia, tired all the time, cold intolerance or hot flashes Man/Lymph: Denies: easy bruising or easy bleeding Medications/Allergies Home Medications Medication Instructions Recorded Confirmed Last Taken Type duloxetine 30 mg capsule,delayed See Rx Instructions .ROUTE 06/23/19 12/11/19 Unknown History release .COMPLEX cap omeprazole 20 mg capsule,delayed 20 mg PO DAILY #30 cap 09/21/19 12/11/19 Unknown Rx release albuterol sulfate 90 mcg/actuation 2 puff INHALATION Q6H PRN #8.5 gm 09/28/19 12/11/19 Unknown Rx aerosol inhaler allopurinol 100 mg tablet 100 mg PO DAILY #30 tab 09/28/19 12/11/19 Unknown Rx levothyroxine 150 mcg capsule 150 mcg PO DAILY #30 cap 09/28/19 12/11/19 Unknown Rx liraglutide 0.6 mg/0.1 mL (18 mg/3 1.8 mg SUBCUT Q24H #9 ml 09/28/19 12/11/19 Unknown Rx mL) subcutaneous pen injector ferrous sulfate 325 mg (65 mg 325 mg PO DAILY #30 tab 10/16/19 12/11/19 Unknown Rx iron) tablet pen needle, diabetic 31 gauge x #100 each 10/16/19 12/11/19 Unknown Rx /16 metoprolol tartrate 50 mg tablet 12.5 mg PO BID #60 tab 11/10/19 12/11/19 Unknown Rx aspirin [Adult Aspirin Regimen] 81 mg PO DAILY 11/30/19 12/11/19 Unknown History insulin lispro [Humalog KwikPen See Rx Instructions .ROUTE .COMPLEX 11/30/19 12/11/19 Unknown History Insulin] amlodipine 5 mg PO DAILY 30 Days #30 tab 12/05/19 12/11/19 Unknown Rx nitrofurantoin monohyd/m-cryst 100 mg PO DAILY 30 Days #30 cap 12/05/19 12/11/19 Unknown Rx [Macrobid] sulfamethoxazole-trimethoprim 1 tab PO BID 7 Days #14 tab 12/05/19 12/11/19 Unknown Rx [Bactrim DS] Lantus U-100 Insulin 40 unit SUBCUT BID 12/11/19 12/11/19 Unknown History canagliflozin [Invokana] 300 mg PO QAM 12/11/19 12/11/19 Unknown History gabapentin 800 mg PO TID 12/11/19 12/11/19 Unknown History oxybutynin chloride 5 mg PO DAILY 12/11/19 12/11/19 Unknown History spironolactone 25 mg PO DAILY 12/11/19 12/11/19 Unknown History Allergies Allergy/AdvReac Type Severity Reaction Status Date / Time celecoxib [From Celebrex] Allergy Intermediate confusion Verified 12/11/19 14:10 meperidine [From Demerol] Allergy Unknown Verified 12/11/19 14:10 theophylline Allergy Unknown Verified 12/11/19 14:10 PFSH Acute PFSH: Medical History Cirrhosis of liver COPD (chronic obstructive pulmonary disease) Dementia without behavioral disturbance Diabetes mellitus Fibromyalgia Frailty GERD (gastroesophageal reflux disease) Hypertension Surgical History S/P cataract extraction S/P cholecystectomy Status post carpal tunnel release of both wrists Family History Other Cancer Diabetes Heart disease Social History Smoking and tobacco status: never smoked Alcohol intake: never Marital status: / History of recent travel: No Current gender identity: Female Vitals/I&O/Wt Last Vital Signs Temp 98.2 F 12/11/19 14:00 Pulse 98 12/11/19 14:00 Resp 16 12/11/19 14:00 BP 146/66 12/11/19 14:00 Pulse Ox 96 12/11/19 14:00 Weight last 48 hrs Weight 81.647 kg Physical Exam Narrative: EXAM NARRATIVE: GEN: Awake, alert and oriented,needs frequent reorientation, no acute distress CVS: S1S2 N RS: CTA B/L Abd: Soft, nt/nd , bs+ ANIMAL GENETICIST: no focal neuro deficits Data : 12/12/19 04:50 12/12/19 04:50 Micro: Microbiology 12/11/19 14:30 Blood Culture - Preliminary Blood SPECIMEN COLLECTED 12/11/19 14:35 Blood Culture - Preliminary Blood SPECIMEN COLLECTED A&P Assessment and plan (1) Hematuria: Status: Acute (2) Dementia without behavioral disturbance: Status: Acute (3) COPD (chronic obstructive pulmonary disease): Status: Acute (4) UTI (urinary tract infection): Status: Acute (5) Hyperglycemia: Status: Acute Additional A&P Information Admit to med/surg Hematuria: Yung placement, I/O monitoring Monitor for clearance Hold ASA CT abdomen to check stent position + UA, empiric abx coverage with ceftriaxone Blood cx given recent sepsis Hyperglycemia: High dose insulin sliding scale. No evidnece of DKA at this lamine e Attestations Medical Necessity Statement*: Anticipate > 2midnight admission for management of hematuria in the setting of recent pyelonephritis Coding Level of Care Code Acute Fabrication And Assembly Supervisor for g Fwd Diagnoses Hematuria R31.9 Dementia without behavioral disturbance F03.90 COPD (chronic obstructive pulmonary disease) J44.9 UTI (urinary tract infection) N39.0 Hyperglycemia R73.9
[2019-12-11 17:56] VITALS: BP 155/61; PULSE 102; RESP 18; O2SAT 97
[2019-12-11 18:04] LABS: Glucose Point of Care 468 mg/dL (70-110)
[2019-12-11 19:14] VITALS: BP 136/62; PULSE 99; RESP 20; TEMP 36.7; O2SAT 96
[2019-12-11 20:11] LABS: Glucose Point of Care 427 mg/dL (70-110)
[2019-12-11 20:11] LABS: Glucose Point of Care 444 mg/dL (70-110)
[2019-12-11] MEDS: cefTRIAXone 1,000 MG in sodium chloride 0.9% (plus) 50 ML 100 MG IV (20:31)
[2019-12-11] MEDS: metoprolol tartrate 25 mg Tablet 12.5 MG PO (20:32)
[2019-12-11] MEDS: insulin glargine 100 units/1 mL 40 UNIT SUBCUT (20:33)
[2019-12-11 23:43] VITALS: BP 134/68; PULSE 89; RESP 20; TEMP 36.8; O2SAT 97
[2019-12-12] VITALS (7 sets, daily range): BP systolic 110–153; BP diastolic 55–76; PULSE 78–86; RESP 16–20; TEMP 36.6–37.1; O2SAT 97–99
[2019-12-12 05:21] LABS: Basophils % 0.4 %; Eosinophils # 0.4 10^3/uL (0.0-0.8); Eosinophils % 7.8 %; Hemoglobin 7.9 g/dL (11.5-15.3); Lymphocytes # 1.7 10^3/uL (0.8-4.8); Lymphocytes % 29.6 %; Mean Corpuscular HGB Conc 31.6 g/dL (30.0-36.0); Mean Corpuscular Hemoglobin 29.7 pg (28.0-34.0); Mean Platelet Volume 9.6 fL (7.4-10.4); Monocytes # 0.4 10^3/uL (0.2-0.9); Monocytes % 6.6 %; Neutrophils # 3.1 10^3/uL (1.8-7.7); Neutrophils % 55.1 %; Nucleated Red Blood Cells % 0 %; Platelet Count 258 10^3/cmm (130-400); Red Blood Count 2.66 10^6/uL (4.1-5.3); Red Cell Distribution Width 16.6 % (12.1-15.1); White Blood Count 5.6 10^3/uL (4.0-10.0)
[2019-12-12 05:58] LABS: Alanine Aminotransferase 10 U/L (0-33); Albumin Level 2.9 g/dL (3.5-5.2); Alkaline Phosphatase 137 IU/L (35-105); Aspartate Amino Transferase 26 U/L (0-32); Blood Urea Nitrogen 22 mg/dL (8-23); Calcium 8.8 mg/dL (8.5-10.5); Carbon Dioxide 18 mmol/L (22-29); Chloride 103 mmol/L (98-107); Globulin 5.6 g/dL (1.3-4.6); Glucose 230 mg/dL (65-115); Osmolality Calculated 280 mOsm/kg (285-295); Sodium 133 mmol/L (136-145); Total Bilirubin 0.3 mg/dL (0.15-1.2); Total Protein 8.5 g/dL (6.6-8.7)
[2019-12-12 06:29] LABS: Glucose Point of Care 228 mg/dL (70-110)
[2019-12-12] MEDS: ferrous sulfate EC 325 mg Tablet PO (08:15)
[2019-12-12] MEDS: amlodipine 5 mg Tablet PO (08:15)
[2019-12-12] MEDS: duloxetine 30 mg Capsule PO (08:15)
[2019-12-12] MEDS: metoprolol tartrate 25 mg Tablet 12.5 MG PO ×2 (08:16→17:41)
[2019-12-12] MEDS: oxybutynin chloride XL 5 MG TABLET PO (08:16)
[2019-12-12] MEDS: pantoprazole DR 40 mg Tablet PO (08:17)
[2019-12-12] MEDS: levothyroxine 150 mcg Tablet PO (08:20)
[2019-12-12] MEDS: insulin glargine 100 units/1 mL 40 UNIT SUBCUT ×2 (08:21→17:37)
[2019-12-12 11:17] LABS: Glucose Point of Care 256 mg/dL (70-110)
--- NOTE | 2019-12-12 11:57 | PC.CHAP ---
Pastoral Care Encounter/Spiritual Assessment Type of Contact [] Declined end polisher visit [] Patient/Family/Request visit [] Outpatient visit [] Follow-up visit [] Physician referral [] Code/Alert [x] Routine visit [] Staff referral [] Actively dying [] Patient sleeping [] Family support [] [] Out of room [] Palliative care [] [x] Receiving care in room [] Pre-surgical visit [] Trauma [] Long length of stay [] ICU visit [] Other: Relational/Emotional Strength [x] Patient feels connected with others/family/visitors/staff [] Distress [] Loneliness/isolation [] Abandonment Spirituality of Patient [x] Person of Rhea [] Attends Temple of their Rhea [x] Believes in Prayer [] Reads Bible or Anglican materials [] There are Spiritual issues to be addressed Supervisor Scenic Arts Interventions [x] Prayer [x] Active listening [x] Non-anxious presence [x] Spiritual/emotional support [] Crisis/trauma care [x] Spiritual counseling [] Bereavement support [] Provided bereavement packet [] Provided Bible/devotional materials [] Provided toy/stuffed animal, coloring book to patient or family member [] Provided Communion [] Anointing/Branch [] Salvation [x] Completed spiritual assessment [] Other: Impact on Illness or Injury [] Angry [] Fearful [] Anxious [] Often cries [] Exhaustion [] Unable to work [] Unable to attend religious [] Unable to walk/stand [] Unable to read [] Unable to drive [] Unable to eat/drink [] Unable to sleep [] Unable to be with family [] Patient intubated [] Other: Summary LIGHT VAG BLEED STOPED BLEEDING, feels good, has possitive attitude, looking forward to going home Time spent with patient 10 mins
--- NOTE | 2019-12-12 12:30 | PC.NURSE ---
Patient gave this ticket writer verbal permission to give information to Lily Henson. This is her daughter and son in law. Patient lives with them and receives home health.
[2019-12-12] MEDS: acetaminophen 325 mg Tablet 650 MG PO (15:08)
[2019-12-12 17:22] LABS: Glucose Point of Care 218 mg/dL (70-110)
--- NOTE | 2019-12-12 17:29 | PM.PN ---
Subjective Subjective: Interval history: No acute overnigth events, hematuria appears to be improving, still with light red color and blood clots. CT with stent in place, no other gross bladder abnormalities noted. Denies any c/o pain at this time. 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: no focal neuro deficits Urinary Catheter Management^: Yung: Cath Placed During This Visit: yes Reason for Continuing Indwelling Catheter: Acute Urinary Retention or Obstruction Urinary Catheter Date of Insertion: 12/11/19 Urinary Catheter Time of Insertion: 18:10 Data : 12/12/19 04:50 12/12/19 04:50 Micro: Microbiology 12/11/19 14:30 Blood Culture - Preliminary Blood NEGATIVE TO DATE 12/11/19 14:35 Blood Culture - Preliminary Blood NEGATIVE TO DATE 12/11/19 17:24 Blood Culture - Preliminary Blood SPECIMEN COLLECTED 12/11/19 17:24 Blood Culture - Preliminary Blood SPECIMEN COLLECTED A&P Assessment and plan (1) Hematuria: Status: Acute (2) Dementia without behavioral disturbance: Status: Acute (3) COPD (chronic obstructive pulmonary disease): Status: Acute (4) UTI (urinary tract infection): Status: Acute (5) Hyperglycemia: Status: Acute Additional A&P Information Continue to monitor on med/surg floor Hematuria: Yung placement with red colred urin ewith blood clots Start intermittent irrigation I/O monitoring Monitor for clearance Hold ASA CT abdomen notes stent in place, no hydronpehrosis, no other gross bladder abnormalities + UA, empiric abx coverage with ceftriaxone Blood cx thus far negative to date Hyperglycemia: High dose insulin sliding scale. No evidnece of DKA at this lamine e Attestations Medical Necessity Statement*: ongoing hematuria, needs to clear prior to discharge home Coding Level of Care Code Acute Script Worker for Chg Fwd Diagnoses Hematuria R31.9 Dementia without behavioral disturbance F03.90 COPD (chronic obstructive pulmonary disease) J44.9 UTI (urinary tract infection) N39.0 Hyperglycemia R73.9
[2019-12-12 20:50] LABS: Glucose Point of Care 156 mg/dL (70-110)
[2019-12-13 03:51] VITALS: BP 129/74; PULSE 81; RESP 20; TEMP 36.8; O2SAT 98
[2019-12-13 05:31] LABS: Hemoglobin 8.3 g/dL (11.5-15.3); Nucleated Red Blood Cells % 0 %
[2019-12-13 05:46] LABS: Basophils % 0.2 %; Eosinophils # 0.4 10^3/uL (0.0-0.8); Eosinophils % 7.4 %; Lymphocytes # 2.1 10^3/uL (0.8-4.8); Lymphocytes % 39.9 %; Mean Corpuscular HGB Conc 31.9 g/dL (30.0-36.0); Mean Corpuscular Hemoglobin 29.3 pg (28.0-34.0); Mean Corpuscular Volume 91.9 fL (81-99); Mean Platelet Volume 9.6 fL (7.4-10.4); Monocytes # 0.3 10^3/uL (0.2-0.9); Monocytes % 6.4 %; Neutrophils # 2.4 10^3/uL (1.8-7.7); Neutrophils % 45.9 %; Platelet Count 299 10^3/cmm (130-400); Red Blood Count 2.83 10^6/uL (4.1-5.3); Red Cell Distribution Width 16.7 % (12.1-15.1); White Blood Count 5.2 10^3/uL (4.0-10.0)
[2019-12-13 05:48] LABS: Alanine Aminotransferase 10 U/L (0-33); Albumin Level 3.2 g/dL (3.5-5.2); Alkaline Phosphatase 144 IU/L (35-105); Anion Gap 14.9 (5-19); Aspartate Amino Transferase 31 U/L (0-32); Blood Urea Nitrogen 23 mg/dL (8-23); Calcium 9.6 mg/dL (8.5-10.5); Carbon Dioxide 19 mmol/L (22-29); Chloride 107 mmol/L (98-107); Glucose 146 mg/dL (65-115); Osmolality Calculated 283 mOsm/kg (285-295); Potassium 3.9 mmol/L (3.5-5.1); Sodium 137 mmol/L (136-145); Total Bilirubin 0.4 mg/dL (0.15-1.2); Total Protein 8.2 g/dL (6.6-8.7)
[2019-12-13 06:14] LABS: Slide Review Slide Review Perform
[2019-12-13 06:17] LABS: Glucose Point of Care 123 mg/dL (70-110)
[2019-12-13 07:35] VITALS: BP 137/77; PULSE 85; RESP 18; TEMP 36.7; O2SAT 99
[2019-12-13] MEDS: duloxetine 60 mg Capsule PO (08:17)
[2019-12-13] MEDS: pantoprazole DR 40 mg Tablet PO (08:17)
[2019-12-13] MEDS: oxybutynin chloride XL 5 MG TABLET PO (08:17)
[2019-12-13] MEDS: ferrous sulfate EC 325 mg Tablet PO (08:18)
[2019-12-13] MEDS: levothyroxine 150 mcg Tablet PO (08:18)
[2019-12-13] MEDS: amlodipine 5 mg Tablet PO (08:18)
[2019-12-13] MEDS: metoprolol tartrate 25 mg Tablet 12.5 MG PO (08:19)
[2019-12-13] MEDS: insulin glargine 100 units/1 mL 40 UNIT SUBCUT (08:19)
--- NOTE | 2019-12-13 09:58 | PC.NURSE ---
Attempted to call patient's daughter Cristela at this time. It went to her voicemail box that is not set up yet. Patient continues to ask to go home and for her daughter to come and get her. Patient has dementia and has been asking for her who to come and pick her up as well.
--- NOTE | 2019-12-13 10:20 | PC.RESP ---
Pulmonary Rehab information sent to patient.
[2019-12-13 10:49] LABS: Glucose Point of Care 296 mg/dL (70-110)
[2019-12-13 11:11] VITALS: BP 148/75; PULSE 81; RESP 18; TEMP 36.6; O2SAT 99
--- NOTE | 2019-12-13 15:03 | PC.NURSE ---
Spoke with Dr. Lu at this time because patient is yelling at staff that she wants to go home. Dr. Lu states, Take her Chow Catheter and I will discharge her.
[2019-12-13 15:25] VITALS: BP 148/75; PULSE 81; RESP 18; TEMP 36.6; O2SAT 99
--- NOTE | 2019-12-13 15:26 | PC.NURSE ---
Addendum entered by Alannah Stroud RN 12/13/19 15:29: This note was made in on the wrong patient. Original Note: Patient was discharged by Melinda Hannah RN. Patient wheel chaired to private car.
[2019-12-13 16:00] VITALS: BP 103/52; PULSE 89; RESP 20; TEMP 36.7; O2SAT 100
--- NOTE | 2019-12-13 16:00 | PC.NURSE ---
Chow Catheter removed at this time.
--- NOTE | 2019-12-13 16:40 | PM.DCS ---
Discharge Providers Date of Admission: 12/11/19 17:07 Date of Discharge: December 13, 2019 Attending Provider at Admission: Ana Lu MD Attending Provider at Discharge: Ana Lu MD Primary Care Provider: Pilo Alexis MD Diagnoses at Discharge Discharge Diagnosis (1) Hematuria: Status: Acute (2) Dementia without behavioral disturbance: Status: Acute (3) COPD (chronic obstructive pulmonary disease): Status: Acute (4) UTI (urinary tract infection): Status: Acute (5) Hyperglycemia: Status: Acute Reason for Visit Reason for Visit: LIGHT VAG BLEED Hospital Course Discharge Summary: Ms. Newman is a 74 year old lady who was recently admitted to the hospital for obstructive pyelonephritis and resultant metabolic encephalopathy and discharged after having a plecemnet of R ureteric stent and significant clinical improvement. She returned for admission on 12/10 with c/o hematuria persisting since discharge and signifcantly increased on day of admission to the point of soaking through diapers. Her family was initially concerned about vaginal bleeding, however upon placement of Yung, there was clear hematuria with blood clots. She needed Yung placement and intermittent flushing, following which hematuria has nor resolved. Ct abdomen showed R ureteric stent being in position and no hydronephrosis. UA showed WBCs and + LA, with concern for UTI for which she has received 2 days of iv ceftriaxone. She is being discharged on po ciprofloxacin. Of concern has been patient's recent cognitive decline since the of her in early June, her family from out of state has moved here to take care of her tool analyst, and are quite concerned with her memory impairment. HHS with speech therapy has been arranged to perform a cognitive assessment. Similar assessment was attempted in house, however patient did not cooperate, insisting on going home. Short term NH placemnet was also discussed, however she and her family have refused this option. She is being discharged today in stable state with resolution of hemtauria. No vaginal bleeding was noted during admission, however if of persisting concern, she needs f/up with her PCP vs WAREHOUSE ASSISTANT for further w/up. Physical Exam Narrative: EXAM NARRATIVE: GEN: Awake, alert and oriented, no acute distress CVS: S1S2 N RS: CTA B/L Abd: Soft, nt/nd , bs+ SOFTWARE DATABASE ARCHITECT: no focal neuro deficits Urinary Catheter Management^: Yung: Cath Placed During This Visit: yes, but has since been removed by the nurse Reason for Continuing Indwelling Catheter: Decision to DC Catheter Urinary Catheter Date of Insertion: 12/11/19 Urinary Catheter Time of Insertion: 18:10 Date Urinary Catheter Removed: 12/13/19 Time Urinary Catheter Discontinued: 15:20 Discharge Data Data Completed and Pending: Completed Studies During Hospitalization Category Date Time Status CT abdomen pelvis wo con 11360 Urge nt Cat Scan 12/11/19 17:[address] head wo con* 7 0450 Urgent Cat Scan 12/11/19 17:07 Completed Pending at discharge Category Date Time Status Blood Culture Sta t Lab 12/11/19 14:30 Results Blood Culture Sta t Lab 12/11/19 17:24 Results Urine Culture Sta t Lab 12/11/19 15:00 Results Labs from last 24 hours 12/13/19 12/13/19 12/13/19 10:30 06:12 05:00 WBC RBC Hgb Hct MCV MCH MCHC RDW Plt Count MPV Neut % (Auto) Lymph % (Auto) [place] % (Auto) Eos % (Auto) Baso % (Auto) Neut # (Auto) Lymph # (Auto) [place] # (Auto) Eos # (Auto) Baso # (Auto) Nucleated RBC % (a uto) Nucleated RBCs # Sodium 137 Potassium 3.9 Chloride 107 Carbon Dioxide 19 L Anion Gap 14.9 BUN 23 Creatinine 1.7 H Glucose 146 H POC Glucose 296 123 Calculated Osmolal ity 283 L Calcium 9.6 Total Bilirubin 0.4 AST 31 ALT 10 Alkaline Phosphata se 144 H Total Protein 8.2 Albumin 3.2 L Globulin 5.0 H 12/13/19 12/12/19 12/12/19 05:00 20:47 17:15 WBC 5.2 RBC 2.83 L Hgb 8.3 L Hct 26.0 L MCV 91.9 MCH 29.3 MCHC 31.9 RDW 16.7 H Plt Count 299 MPV 9.6 Neut % (Auto) 45.9 Lymph % (Auto) 39.9 [place] % (Auto) 6.4 Eos % (Auto) 7.4 Baso % (Auto) 0.2 Neut # (Auto) 2.4 Lymph # (Auto) 2.1 [place] # (Auto) 0.3 Eos # (Auto) 0.4 Baso # (Auto) 0.0 Nucleated RBC % (a uto) 0 Nucleated RBCs # 0.0 Sodium Potassium Chloride Carbon Dioxide Anion Gap BUN Creatinine Glucose POC Glucose 156 218 Calculated Osmolal ity Calcium Total Bilirubin AST ALT Alkaline Phosphata se Total Protein Albumin Globulin Vitals: Last Vital Signs Temp 97.8 F 12/13/19 15:25 Pulse 81 12/13/19 15:25 Resp 18 12/13/19 15:25 BP 148/75 12/13/19 15:25 Pulse Ox 99 12/13/19 15:25 Discharge Plan Discharge Patient Disposition: Home Health Service Condition: Stable Prescriptions: New ciprofloxacin HCl [Cipro] 500 mg tablet 500 mg PO BID 3 Days Qty: 6 RF: 0 Continued ferrous sulfate 325 mg (65 mg iron) tablet 325 mg PO DAILY Qty: 30 RF: 3 (DME) pen needle, diabetic [Pen Needle] 31 gauge x 5/16 needle See Rx Instructions .ROUTE .MEDSUPPLY Qty: 100 RF: 12 duloxetine 30 mg capsule,delayed release(DR/EC) See Rx Instructions .ROUTE .COMPLEX RF: 0 omeprazole 20 mg capsule,delayed release(DR/EC) 20 mg PO DAILY Qty: 30 RF: 3 albuterol sulfate [ProAir HFA] 90 mcg/actuation HFA aerosol inhaler 2 puff INHALATION Q6H PRN (Reason: shortness of breath) Qty: 8.5 RF: 3 Victoza 3-Porter 0.6 mg/0.1 mL (18 mg/3 mL) pen injector 1.8 mg SUBCUT Q24H Qty: 9 RF: 3 levothyroxine 150 mcg capsule 150 mcg PO DAILY Qty: 30 RF: 3 allopurinol 100 mg tablet 100 mg PO DAILY Qty: 30 RF: 3 metoprolol tartrate [Lopressor] 50 mg tablet 12.5 mg PO BID Qty: 60 RF: 3 insulin lispro [Humalog KwikPen Insulin] 100 unit/mL insulin pen See Rx Instructions .ROUTE .COMPLEX RF: 0 amlodipine 5 mg Tablet 5 mg PO DAILY 30 Days Qty: 30 RF: 0 spironolactone 25 mg tablet 25 mg PO DAILY RF: 0 Lantus U-100 Insulin 100 unit/mL solution 40 unit SUBCUT BID RF: 0 gabapentin 800 mg tablet 800 mg PO TID RF: 0 oxybutynin chloride 5 mg Tablet Extended Release 24hr 5 mg PO DAILY RF: 0 Held aspirin [Adult Aspirin Regimen] 81 mg tablet,delayed release (DR/EC) 81 mg PO DAILY RF: 0 Hold Instructions: Resume on 12/20/19. resume ONLY IF NO FURTHER BLEEDING IN URINE Discontinued sulfamethoxazole-trimethoprim [Bactrim DS] 800-160 mg tablet 1 tab PO BID 7 Days Qty: 14 RF: 0 nitrofurantoin monohyd/m-cryst [Macrobid] 100 mg capsule 100 mg PO DAILY 30 Days Qty: 30 RF: 0 Invokana 300 mg tablet 300 mg PO QAM RF: 0 Discharge Orders: Discharge Order (Routine); Ordered 12/13/19 Ordered By: Ana Lu Referrals: Pilo Alexis MD [Primary Care Provider] - 4-7 days () Luis Cardoso MD [Physician] - 1 month Discharge Diet: Diabetic Discharge Activity: Resume usual activity Discharge Attestations Time Spent in Discharge Care*: greater than 30 min Quality Metrics Clinical Quality Measures During this hospital stay, did patient experience: None Coding Level of Care Code Acute Mechanical Tech for Chg Fwd Diagnoses Hematuria R31.9 Dementia without behavioral disturbance F03.90 COPD (chronic obstructive pulmonary disease) J44.9 UTI (urinary tract infection) N39.0 Hyperglycemia R73.9
[2019-12-13 17:11] LABS: Glucose Point of Care 175 mg/dL (70-110)
--- NOTE | 2019-12-14 14:07 | PC.SOCIAL ---
Notified Dr Lu of urine culture result and it was discussed it is ESBL. Per Dr Lu patient was improving on Ceftriaxone and no further orders needed.
== END 2019-12-13 19:00 | disposition home health service (06) | DRG 690 ==
LOC: ER 17:31 → MEDSURG 17:40
PROVIDERS: Emergency Medicine; Physician Assistant; Admitting Provider Student in an Organized Health Care Education/Training Program; PCP Internal Medicine; Visit Provider Student in an Organized Health Care Education/Training Program
DX: N39.0 Urinary tract infection, site not specified (principal); R31.9 Hematuria, unspecified; K74.60 Unspecified cirrhosis of liver; J44.9 Chronic obstructive pulmonary disease, unspecified; F03.90 Unspecified dementia, unspecified severity, without behavioral disturbance, psychotic disturbance, mood disturbance, and anxiety; E11.65 Type 2 diabetes mellitus with hyperglycemia; M79.7 Fibromyalgia; K21.9 Gastro-esophageal reflux disease without esophagitis; I10 Essential (primary) hypertension; Z96.0 Presence of urogenital implants; Z79.51 Long term (current) use of inhaled steroids; Z79.4 Long term (current) use of insulin
CPT/HCPCS: 12345; 36415; 36416; 51702; 70450; 74176; 80053; 81001; 82962; 85025; 87040; 87077; 87086; 87186; 92523; 92610; 96372; 99283; J0696; J1815 ×2; J7030

== ENCOUNTER 2019-12-15 21:32 | Inpatient (IN) | payer MEDICARE, MEDICAID, SELFPAY ==
[2019-12-15 21:32] VITALS: BP 140/72; PULSE 101; RESP 20; O2SAT 99
[2019-12-15 21:38] VITALS: BP 147/68; PULSE 102; RESP 22; TEMP 37.4; O2SAT 96; BMI 35.2
--- NOTE | 2019-12-15 21:42 | CTR_ITS ---
PROCEDURE INFORMATION: Exam: CT Head Without Contrast Exam date and time: 12/15/2019 10:13 PM Age: 74 years old Clinical indication: Altered mental status/memory loss; Patient HX: AMS. Persistent UTI. Patient unable to follow instructions. Best exam submitted. TECHNIQUE: Imaging protocol: Computed tomography of the head without contrast. Radiation optimization: All CT scans at this facility use at least one of these dose optimization techniques: automated exposure control; mA and/or kV adjustment per patient size (includes targeted exams where dose is matched to clinical indication); or iterative reconstruction. COMPARISON: CT head wo con* [id number] 12/11/2019 6:23 PM RADIATION DOSE METRICS: Total DLP (mGy-cm): 1179.01 FINDINGS: Brain: Normal. No hemorrhage. Unremarkable white matter. No mass effect. Ventricles: Normal. No ventriculomegaly. Bones/joints: Unremarkable. No acute fracture. Sinuses: Visualized sinuses are unremarkable. No fluid levels. Mastoid air cells: Visualized mastoid air cells are well aerated. Soft tissues: Unremarkable. CT/CT head wo con* [id number] IMPRESSION: Negative for intracranial hemorrhage or mass effect. Radiation Dose CTDIVOL = (mGy): DLP = 664.63 (mGy-cm)
--- NOTE | 2019-12-15 21:43 | XRR_ITS ---
PROCEDURE INFORMATION: Exam: XR Chest, 1 View Exam date and time: 12/15/2019 10:03 PM Age: 74 years old Clinical indication: Cough; Additional info: AMS TECHNIQUE: Imaging protocol: XR of the chest Views: 1 view. COMPARISON: No relevant prior studies available. FINDINGS: Lungs: Right lower lobe atelectasis versus infiltrate. Pleural space: Unremarkable. No pleural effusion. No pneumothorax. Heart/Mediastinum: Unremarkable. No cardiomegaly. Bones/joints: Unremarkable. XR/XR chest 1V portable [id number] IMPRESSION: Right lower lobe atelectasis versus infiltrate.
--- NOTE | 2019-12-15 21:44 | ECG_ITS ---
[facility] ED Test Date: 2019-12-15 Pat Name: Melba Newman Department: Room: Gender: Female Learning And Development Officer: : 1945 Requested By: Eva Marroquin Order Number: [id number] Fco MD: Margarita Brian M.D. Measurements Intervals [place] Rate: 99 P: 67 TX: 178 QRS: -24 QRSD: 88 T: 73 QT: 340 QTc: 438 Interpretive Statements SINUS RHYTHM WITH OCCASIONAL SUPRAVENTRICULAR PREMATURE COMPLEXES BORDERLINE LEFT AXIS DEVIATION [QRS AXIS < -20] NONSPECIFIC T-WAVE ABNORMALITY Compared to ECG 11/30/2019 18:40:04 Ventricular premature complex(es) now present T-wave abnormality now present Sinus tachycardia no longer present Myocardial infarct finding no longer present Electronically Signed On 12-16-2019 22:49:17 CDT by Margarita Brian M.D. [email or web address]
--- NOTE | 2019-12-15 21:49 | ED_ITS ---
HPI - General Adult General: Chief complaint: General Medical Stated complaint: ams Time Seen by Provider: 12/15/19 21:40 Source: EMS and old records reviewed Mode of arrival: EMS Limitations: altered mental status History of Present Illness: HPI narrative: Melba Newman is a 74-year-old female brought in by EMS with report of altered mental status. EMS gives all history as the patient has a unable to answer questions. Apparently her mental status began changing about an noon yesterday and has gradually declined to the point she recognizes her name and will only intermittently follow commands. EMS reports the patient was recently here in the hospital for a UTI. Since being discharged from the hospital the patient has only taken 1 Cipro. Family did relate to EMS the patient has been incontinent of urine several times. Review of Systems General: Reports: ROS unobtainable due to mental status PFSH ED PFSH: Medical History Cirrhosis of liver COPD (chronic obstructive pulmonary disease) Dementia without behavioral disturbance Diabetes mellitus Fibromyalgia Frailty GERD (gastroesophageal reflux disease) Hypertension Surgical History S/P cataract extraction S/P cholecystectomy Status post carpal tunnel release of both wrists Family History Other Cancer Diabetes Heart disease Social History Smoking and tobacco status: never smoked Alcohol intake: never Marital status: / History of recent travel: No Current gender identity: Female Physical Exam Const: EXAM LIMITATIONS: altered mental status GENERAL APPEARANCE: disheveled and lethargic ORIENTATION/CONSCIOUSNESS: Yes awake, Yes oriented to person and Yes lethargic HENMT: COMMON NORMALS: normocephalic, atraumatic, external ears normal, EAC's normal and Normal external nose present HEAD & SCALP: normal to inspection, normocephalic and atraumatic FACE & SINUS: normal facial exam and face symmetric NOSE: Normal external nose present and Normal nares present EXTERNAL EAR: Yes external ears normal EXTERNAL AUDITORY CANAL: EAC's normal MOUTH: Normal oral and palatal mucosa present, lip normal and tongue normal Eye: COMMON NORMALS: Equal, round and reactive pupils present and conjunctivae normal GENERAL EYE: appearance normal, both eyes and all related structures ALIGNMENT: Yes alignment normal PERIORBITAL: periorbital findings normal EYELID: eyelids normal CONJUNCTIVA: Yes conjunctivae normal SCLERA: sclerae normal PUPIL: Yes Equal, round and reactive pupils present Neck/C-Spine: COMMON NORMALS: full ROM, no lymphadenopathy, supple, no meningeal signs and no JVD GENERAL: Yes normal visual inspection and Yes trachea midline Chest: COMMONS NORMALS: normal inspection of the chest and normal palpation of entire chest wall Resp: COMMON NORMALS: normal respiratory effort, No retractions and No use of accessory muscles EFFORT & INSPECTION: Yes able to speak in complete sentences and Yes symmetric chest movement AUSCULTATION: no crackles, no rales, no rhonchi and no wheezes Cardio: COMMON NORMALS: no JVD, regular rate, regular rhythm, S1 normal heart sound present and S2 normal heart sound present RATE: regular rate RHYTHM: regular rhythm HEART SOUNDS: S1 normal heart sound present, S2 normal heart sound present, no click, no gallops, no murmurs, no rubs and abnormal split S2 GI: COMMON NORMALS: Soft to palpation and No hepatosplenomegaly present PALPATION: Yes Soft to palpation, No Tenderness to palpation present (GI), No Guarding due to palpation present (GI), No Rigid due to palpation, Yes No hepatosplenomegaly present, No Hernia present, No Palpable mass present and No Pulsatile mass present : COMMON NORMALS: Yes no CVA tenderness BLADDER/KIDNEY EXAM: Yes no CVA tenderness EXTERNAL FEMALE EXAM: No Hernia present Back/Pelvis: COMMON NORMALS: no CVA tenderness, thoracic and lumbar spine normal to inspection, no thoracic nor lumbar tenderness and thoraco-lumbar ROM normal Extremity: COMMON NORMALS: normal to inspection, full ROM, capillary refill normal, no joint enlargement, no clubbing, cyanosis or edema and no calf tenderness Neuro: [place] COMA SCALE: document GCS findings [place] coma scale eye opening: Spontaneous [place] coma scale verbal response: Confused [place] coma scale motor response: Localising [place] coma scale total score: 13 COMMON NORMALS: CN's II-XII intact bilaterally, moves all extremities, no focal motor deficits and no sensory deficits noted SENSORIUM/ORIENTATION: Yes oriented to person and Yes lethargic MENINGEAL SIGNS: Yes no meningeal signs Skin: COMMON NORMALS: no rashes or lesions noted, turgor normal, no jaundice, no petechiae and no mottling GENERAL SKIN EXAM: no rashes or lesions noted and turgor normal Course Vital Signs: Vital signs: Vital Signs Temperature 98.6 F 12/16/19 02:47 Pulse Rate 98 12/16/19 02:47 Respiratory Rate 21 H 12/16/19 02:47 Blood Pressure 154/79 12/16/19 02:47 Pulse Oximetry 97 12/16/19 02:47 MDM - General Adult MDM Narrative: Medical decision making narrative: The case was reviewed with Dr. Peters. He agrees to come see and evaluate the patient and admit. He would like to add ampicillin for coverage of enterococcus. That has been ordered. The patient's mentation has improved mildly here. Dr. Cardoso was notified by phone but based upon the CT report and the findings I have discussed with him he sees no necessity in him being consulted at this time but he is available if necessary. Lab Data: Attestation: I reviewed the patient's lab results. Labs: Lab Results 12/15/19 12/15/19 12/15/19 Range/Units 12:40 21:45 22:26 WBC 9.5 (4.0-10.0) 10^3/ uL RBC 2.84 L (4.1-5.3) 10^6/u L Hgb 8.2 L (11.5-15.3) g/dL Hct 27.3 L (37.0-47.0) % MCV 96.1 (81-99) fL MCH 28.9 (28.0-34.0) pg MCHC 30.0 (30.0-36.0) g/dL RDW 17.3 H (12.1-15.1) % Plt Count 323 (130-400) 10^3/c mm MPV 9.5 (7.4-10.4) fL Neut % (Auto) 70.7 % Lymph % (Auto) 21.0 % Hubbard % (Auto) 5.1 % Eos % (Auto) 2.8 % Baso % (Auto) 0.2 % Neut # (Auto) 6.7 (1.8-7.7) 10^3/u L Lymph # (Auto) 2.0 (0.8-4.8) 10^3/u L Hubbard # (Auto) 0.5 (0.2-0.9) 10^3/u L Eos # (Auto) 0.3 (0.0-0.8) 10^3/u L Baso # (Auto) 0.0 (0.0-0.1) 10^3/u L Nucleated RBC % (a uto) 0 % Nucleated RBCs # 0.0 /100WBC PT (10.5-13.3) SECO NDS INR (0.8-1.2) Specimen Type Arterial Sample Site Radial, left ABG pH 7.41 (7.35-7.45) ABG pCO2 30.5 L (35-45) mmHg ABG pO2 81.6 (80.0-100.0) mmH g ABG HCO3 19.2 L (22-26) mmol/L ABG Base Excess -4.8 L (-2.0-2.0) mmol/ L Manoj Test Pos Hematocrit 27.3 L (37-47) % O2 Delivery Device None FiO2 21.0 % Steam Plant Operator ID [id number] Sodium (136-145) mmol/L Potassium (3.5-5.1) mmol/L Chloride (98-107) mmol/L Carbon Dioxide (22-29) mmol/L Anion Gap (5-19) BUN (8-23) mg/dL Creatinine (0.5-0.9) mg/dL Glucose (65-115) mg/dL Calculated Osmolal ity (285-295) mOsm/k g Lactic Acid (0.5-2.2) mmol/L Calcium (8.5-10.5) mg/dL Magnesium (1.7-2.3) mg/dL Total Bilirubin (0.15-1.2) mg/dL AST (0-32) U/L ALT (0-33) U/L Alkaline Phosphata se (35-105) IU/L Ammonia 76 H (11-51) umol/L Troponin T Baselin e (0-10) ng/L Troponin T 120 Min lavern (0-10) ng/L Delta Troponin T (0-10) ABS# Total Protein (6.6-8.7) g/dL Albumin (3.5-5.2) g/dL Globulin (1.3-4.6) g/dL Lipase (13-60) U/L Urine Color (Yellow) Urine Appearance (CLEAR) Urine pH (5-7) Ur Specific Gravit y (1.005-1.030) Urine Protein (Negative) Urine Glucose (UA) (Normal) Urine Ketones (Negative) Urine Blood (Negative) Urine Nitrate (Negative) Urine Bilirubin (NEGATIVE) Urine Urobilinogen (Negative) mg/dL Ur Leukocyte Roxie ase (Negative) Urine RBC (0-2) /hpf Urine WBC (0-5) /hpf Ur Squamous Epith Cells (0-5) Urine Bacteria (NONE) Ethyl Alcohol (0-10) mg/dL 12/15/19 12/15/19 12/15/19 Range/Units 22:26 22:26 22:26 WBC (4.0-10.0) 10^3/ uL RBC (4.1-5.3) 10^6/u L Hgb (11.5-15.3) g/dL Hct (37.0-47.0) % MCV (81-99) fL MCH (28.0-34.0) pg MCHC (30.0-36.0) g/dL RDW (12.1-15.1) % Plt Count (130-400) 10^3/c mm MPV (7.4-10.4) fL Neut % (Auto) % Lymph % (Auto) % Hubbard % (Auto) % Eos % (Auto) % Baso % (Auto) % Neut # (Auto) (1.8-7.7) 10^3/u L Lymph # (Auto) (0.8-4.8) 10^3/u L Hubbard # (Auto) (0.2-0.9) 10^3/u L Eos # (Auto) (0.0-0.8) 10^3/u L Baso # (Auto) (0.0-0.1) 10^3/u L Nucleated RBC % (a uto) % Nucleated RBCs # /100WBC PT 14.70 H (10.5-13.3) SECO NDS INR 1.12 (0.8-1.2) Specimen Type Sample Site ABG pH (7.35-7.45) ABG pCO2 (35-45) mmHg ABG pO2 (80.0-100.0) mmH g ABG HCO3 (22-26) mmol/L ABG Base Excess (-2.0-2.0) mmol/ L Manoj Test Hematocrit (37-47) % O2 Delivery Device FiO2 % Steam Plant Operator ID Sodium 135 L (136-145) mmol/L Potassium 3.8 (3.5-5.1) mmol/L Chloride 103 (98-107) mmol/L Carbon Dioxide 18 L (22-29) mmol/L Anion Gap 17.8 (5-19) BUN 25 H (8-23) mg/dL Creatinine 1.5 H (0.5-0.9) mg/dL Glucose 255 H (65-115) mg/dL Calculated Osmolal ity 286 (285-295) mOsm/k g Lactic Acid 1.7 (0.5-2.2) mmol/L Calcium 9.4 (8.5-10.5) mg/dL Magnesium 1.8 (1.7-2.3) mg/dL Total Bilirubin 0.5 (0.15-1.2) mg/dL AST 34 H (0-32) U/L ALT 13 (0-33) U/L Alkaline Phosphata se 177 H (35-105) IU/L Ammonia (11-51) umol/L Troponin T Baselin e (0-10) ng/L Troponin T 120 Min lavern (0-10) ng/L Delta Troponin T (0-10) ABS# Total Protein 9.6 H (6.6-8.7) g/dL Albumin 3.3 L (3.5-5.2) g/dL Globulin 6.3 H (1.3-4.6) g/dL Lipase 25 (13-60) U/L Urine Color (Yellow) Urine Appearance (CLEAR) Urine pH (5-7) Ur Specific Gravit y (1.005-1.030) Urine Protein (Negative) Urine Glucose (UA) (Normal) Urine Ketones (Negative) Urine Blood (Negative) Urine Nitrate (Negative) Urine Bilirubin (NEGATIVE) Urine Urobilinogen (Negative) mg/dL Ur Leukocyte Roxie ase (Negative) Urine RBC (0-2) /hpf Urine WBC (0-5) /hpf Ur Squamous Epith Cells (0-5) Urine Bacteria (NONE) Ethyl Alcohol < 10 (0-10) mg/dL 12/15/19 12/15/19 12/15/19 Range/Units 22:26 23:27 23:40 WBC (4.0-10.0) 10^3/ uL RBC (4.1-5.3) 10^6/u L Hgb (11.5-15.3) g/dL Hct (37.0-47.0) % MCV (81-99) fL MCH (28.0-34.0) pg MCHC (30.0-36.0) g/dL RDW (12.1-15.1) % Plt Count (130-400) 10^3/c mm MPV (7.4-10.4) fL Neut % (Auto) % Lymph % (Auto) % Hubbard % (Auto) % Eos % (Auto) % Baso % (Auto) % Neut # (Auto) (1.8-7.7) 10^3/u L Lymph # (Auto) (0.8-4.8) 10^3/u L Hubbard # (Auto) (0.2-0.9) 10^3/u L Eos # (Auto) (0.0-0.8) 10^3/u L Baso # (Auto) (0.0-0.1) 10^3/u L Nucleated RBC % (a uto) % Nucleated RBCs # /100WBC PT (10.5-13.3) SECO NDS INR (0.8-1.2) Specimen Type Sample Site ABG pH (7.35-7.45) ABG pCO2 (35-45) mmHg ABG pO2 (80.0-100.0) mmH g ABG HCO3 (22-26) mmol/L ABG Base Excess (-2.0-2.0) mmol/ L Manoj Test Hematocrit (37-47) % O2 Delivery Device FiO2 % Steam Plant Operator ID Sodium (136-145) mmol/L Potassium (3.5-5.1) mmol/L Chloride (98-107) mmol/L Carbon Dioxide (22-29) mmol/L Anion Gap (5-19) BUN (8-23) mg/dL Creatinine (0.5-0.9) mg/dL Glucose (65-115) mg/dL Calculated Osmolal ity (285-295) mOsm/k g Lactic Acid (0.5-2.2) mmol/L Calcium (8.5-10.5) mg/dL Magnesium (1.7-2.3) mg/dL Total Bilirubin (0.15-1.2) mg/dL AST (0-32) U/L ALT (0-33) U/L Alkaline Phosphata se (35-105) IU/L Ammonia (11-51) umol/L Troponin T Baselin e 15 H (0-10) ng/L Troponin T 120 Min lavern 13.74 H (0-10) ng/L Delta Troponin T -1.26 L (0-10) ABS# Total Protein (6.6-8.7) g/dL Albumin (3.5-5.2) g/dL Globulin (1.3-4.6) g/dL Lipase (13-60) U/L Urine Color Yellow (Yellow) Urine Appearance Cloudy (CLEAR) Urine pH 6.5 (5-7) Ur Specific Gravit y 1.010 (1.005-1.030) Urine Protein 2+ H (Negative) Urine Glucose (UA) 1+ (Normal) Urine Ketones Negative (Negative) Urine Blood 3+ H (Negative) Urine Nitrate Negative (Negative) Urine Bilirubin Neg (NEGATIVE) Urine Urobilinogen Norm (Negative) mg/dL Ur Leukocyte Roxie ase 2+ H (Negative) Urine RBC >100 H (0-2) /hpf Urine WBC >100 H (0-5) /hpf Ur Squamous Epith Cells 0-4 H (0-5) Urine Bacteria 4+ H (NONE) Ethyl Alcohol (0-10) mg/dL Imaging Data^: CT Head: Radiologist's impression: [address] [address] [address] Scan Report Signed Patient: Melba Newman Unit #: [id number] : 1945 Age/Sex: 74 / F ADM Date: 12/15/19 Loc: ER Room/Bed: Attending Dr: Ordering Provider/Ordering MD: Eva Suresh DO Date of Service: 12/15/19 Procedure(s): CT head wo con* [id number] Accession Number(s): [id number] Report Number: [id number] PROCEDURE INFORMATION: Exam: CT Head Without Contrast Exam date and time: 12/15/2019 10:13 PM Age: 74 years old Clinical indication: Altered mental status/memory loss; Patient HX: AMS. Persistent UTI. Patient unable to follow instructions. Best exam submitted. TECHNIQUE: Imaging protocol: Computed tomography of the head without contrast. Radiation optimization: All CT scans at this facility use at least one of these dose optimization techniques: automated exposure control; mA and/or kV adjustment per patient size (includes targeted exams where dose is matched to clinical indication); or iterative reconstruction. COMPARISON: CT head wo con* [id number] 12/11/2019 6:23 PM RADIATION DOSE METRICS: Total DLP (mGy-cm): 1179.01 FINDINGS: Brain: Normal. No hemorrhage. Unremarkable white matter. No mass effect. Ventricles: Normal. No ventriculomegaly. Bones/joints: Unremarkable. No acute fracture. Sinuses: Visualized sinuses are unremarkable. No fluid levels. Mastoid air cells: Visualized mastoid air cells are well aerated. Soft tissues: Unremarkable. CT/CT head wo con* [id number] IMPRESSION: Negative for intracranial hemorrhage or mass effect. Radiation Dose CTDIVOL = (mGy): DLP = 664.63 (mGy-cm) Dictated By: Neal Jaquez MD Signed By: Neal Jaquez MD Signed Date/Time: 12/15/192245 DD/ 42 CT Abd/Pel: Radiologist's impression: [address] [address] [address] Scan Report Signed Patient: Melba Newman Unit #: [id number] : 1945 Age/Sex: 74 / F ADM Date: Loc: ER Room/Bed: Attending Dr: Ordering Provider/Ordering MD: Eva Suresh DO Date of Service: 12/15/19 Procedure(s): CT kidney stone [id number] Accession Number(s): [id number] Report Number: [id number] PROCEDURE INFORMATION: Exam: CT Abdomen And Pelvis Without Contrast Exam date and time: 12/15/2019 10:13 PM Age: 74 years old Clinical indication: Other: Hematuria; Prior surgery; Surgery type: Gb. Ureteral stent; Patient HX: AMS. Persistent UTI. Patient unable to follow instructions. Best exam submitted. ; Additional info: Flank/abdominal pain TECHNIQUE: Imaging protocol: Computed tomography of the abdomen and pelvis without contrast. Radiation optimization: All CT scans at this facility use at least one of these dose optimization techniques: automated exposure control; mA and/or kV adjustment per patient size (includes targeted exams where dose is matched to clinical indication); or iterative reconstruction. COMPARISON: CT abdomen pelvis wo con [id number] 12/11/2019 6:28 PM RADIATION DOSE METRICS: Total DLP (mGy-cm): 1179.01 FINDINGS: Lungs: Right lower lobe atelectasis versus minimal infiltrate. Right middle lobe pleural based 9 mm nodule again seen similar to prior exam, recommended follow-up provided on prior exam. Liver: Normal. No mass. Gallbladder and bile ducts: Cholecystectomy. Pancreas: Normal. No ductal dilation. Spleen: Normal. No splenomegaly. Adrenals: Normal. No mass. Kidneys and ureters: Right-sided ureteral stent seen in place with air in the right renal collecting system and urinary bladder, likely iatrogenic, negative for hydronephrosis. Stomach and bowel: Constipation. Appendix: No evidence of appendicitis. Intraperitoneal space: Unremarkable. No free air. No significant fluid collection. 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 Lymph nodes: Unremarkable. No enlarged lymph nodes. Bladder: Unremarkable as visualized. Reproductive: Unremarkable as visualized. Bones/joints: L4 vertebral body superior endplate chronic compression fracture Soft tissues: Unremarkable. CT/CT kidney stone [id number] IMPRESSION: 1. Right-sided ureteral stent seen in place with air in the right renal collecting system and urinary bladder, likely iatrogenic, negative for hydronephrosis. 2. Constipation. 3. L4 vertebral body superior endplate chronic compression fracture 4. Right lower lobe atelectasis versus minimal infiltrate. 5. Right middle lobe pleural based 9 mm nodule again seen similar to prior exam, recommended follow-up provided on prior exam. 6. 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 7. Cholecystectomy. Radiation Dose CTDIVOL = (mGy): DLP = 1179.01 (mGy-cm) Dictated By: Neal Jaquez MD Signed By: Neal Jaquez MD Signed Date/Time: 12/15/192251 DD/ 50 EKG Data^: EKG 1: Attestation: I personally reviewed and interpreted this EKG as follows: EKG interpretation date: 12/15/19 EKG interpretation time: 22:16 Interpretation: Normal sinus rhythm with a ventricular rate of 99 beats a minute, LVH, poor R wave progression, nonspecific ST and T wave changes. Baseline artifact present. Computer generated interpretation: Head CT 12/15/19 21:42 IMPRESSION: Negative for intracranial hemorrhage or mass effect. Radiation Dose CTDIVOL = (mGy): DLP = 664.63 (mGy-cm) Chest X-Ray 12/15/19 21:43 IMPRESSION: Right lower lobe atelectasis versus infiltrate. Abdomen/Pelvis CT 12/15/19 21:56 IMPRESSION: 1. Right-sided ureteral stent seen in place with air in the right renal collecting system and urinary bladder, likely iatrogenic, negative for hydronephrosis. 2. Constipation. 3. L4 vertebral body superior endplate chronic compression fracture 4. Right lower lobe atelectasis versus minimal infiltrate. 5. Right middle lobe pleural based 9 mm nodule again seen similar to prior exam, recommended follow-up provided on prior exam. 6. 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 7. Cholecystectomy. Radiation Dose CTDIVOL = (mGy): DLP = 1179.01 (mGy-cm) Discharge Plan Discharge Patient Disposition: Admitted As Inpatient Admit Provider: Germán Peters Clinical Impression: Sepsis, UTI (urinary tract infection) Condition: Stable Interventions: ED Discharge Assessment Last Done: 12/16/19 01:59 ED Charges Last Done: 12/16/19 01:59 Discharge Date/Time: 12/16/19 02:00 Coding Level of Care Code ED Engineering Recruiter for Chg Fwd Exam Comprehensive
--- NOTE | 2019-12-15 21:56 | CTR_ITS ---
PROCEDURE INFORMATION: Exam: CT Abdomen And Pelvis Without Contrast Exam date and time: 12/15/2019 10:13 PM Age: 74 years old Clinical indication: Other: Hematuria; Prior surgery; Surgery type: Gb. Ureteral stent; Patient HX: AMS. Persistent UTI. Patient unable to follow instructions. Best exam submitted. ; Additional info: Flank/abdominal pain TECHNIQUE: Imaging protocol: Computed tomography of the abdomen and pelvis without contrast. Radiation optimization: All CT scans at this facility use at least one of these dose optimization techniques: automated exposure control; mA and/or kV adjustment per patient size (includes targeted exams where dose is matched to clinical indication); or iterative reconstruction. COMPARISON: CT abdomen pelvis wo con [id number] 12/11/2019 6:28 PM RADIATION DOSE METRICS: Total DLP (mGy-cm): 1179.01 FINDINGS: Lungs: Right lower lobe atelectasis versus minimal infiltrate. Right middle lobe pleural based 9 mm nodule again seen similar to prior exam, recommended follow-up provided on prior exam. Liver: Normal. No mass. Gallbladder and bile ducts: Cholecystectomy. Pancreas: Normal. No ductal dilation. Spleen: Normal. No splenomegaly. Adrenals: Normal. No mass. Kidneys and ureters: Right-sided ureteral stent seen in place with air in the right renal collecting system and urinary bladder, likely iatrogenic, negative for hydronephrosis. Stomach and bowel: Constipation. Appendix: No evidence of appendicitis. Intraperitoneal space: Unremarkable. No free air. No significant fluid collection. 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 Lymph nodes: Unremarkable. No enlarged lymph nodes. Bladder: Unremarkable as visualized. Reproductive: Unremarkable as visualized. Bones/joints: L4 vertebral body superior endplate chronic compression fracture Soft tissues: Unremarkable. CT/CT kidney stone [id number] IMPRESSION: 1. Right-sided ureteral stent seen in place with air in the right renal collecting system and urinary bladder, likely iatrogenic, negative for hydronephrosis. 2. Constipation. 3. L4 vertebral body superior endplate chronic compression fracture 4. Right lower lobe atelectasis versus minimal infiltrate. 5. Right middle lobe pleural based 9 mm nodule again seen similar to prior exam, recommended follow-up provided on prior exam. 6. 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 7. Cholecystectomy. Radiation Dose CTDIVOL = (mGy): DLP = 1179.01 (mGy-cm)
[2019-12-15 22:00] LABS: ABG PCO2 30.5 mmHg (35-45); ABG PH Result 7.41 (7.35-7.45); Arterial Blood Gas Hematocrit 27.3 % (37-47); Base Excess ABG -4.8 mmol/L (-2.0-2.0); Blood Gas Allen Test Pos; Blood Gas Sample Site Radial, left; Blood Gas Sample Type Arterial; HCO3 ABG 19.2 mmol/L (22-26); PO2 ABG 81.6 mmHg (80.0-100.0)
[2019-12-15 22:37] LABS: Basophils % 0.2 %; Eosinophils # 0.3 10^3/uL (0.0-0.8); Eosinophils % 2.8 %; Hematocrit 27.3 % (37.0-47.0); Hemoglobin 8.2 g/dL (11.5-15.3); Mean Corpuscular Hemoglobin 28.9 pg (28.0-34.0); Mean Corpuscular Volume 96.1 fL (81-99); Mean Platelet Volume 9.5 fL (7.4-10.4); Monocytes # 0.5 10^3/uL (0.2-0.9); Monocytes % 5.1 %; Neutrophils # 6.7 10^3/uL (1.8-7.7); Neutrophils % 70.7 %; Nucleated Red Blood Cells % 0 %; Platelet Count 323 10^3/cmm (130-400); Red Blood Count 2.84 10^6/uL (4.1-5.3); Red Cell Distribution Width 17.3 % (12.1-15.1); White Blood Count 9.5 10^3/uL (4.0-10.0)
[2019-12-15 22:55] LABS: INR 1.12 (0.8-1.2)
[2019-12-15 23:03] LABS: Alanine Aminotransferase 13 U/L (0-33); Albumin Level 3.3 g/dL (3.5-5.2); Alkaline Phosphatase 177 IU/L (35-105); Anion Gap 17.8 (5-19); Aspartate Amino Transferase 34 U/L (0-32); Blood Urea Nitrogen 25 mg/dL (8-23); Calcium 9.4 mg/dL (8.5-10.5); Carbon Dioxide 18 mmol/L (22-29); Chloride 103 mmol/L (98-107); Globulin 6.3 g/dL (1.3-4.6); Glucose 255 mg/dL (65-115); Lipase 25 U/L (13-60); Magnesium 1.8 mg/dL (1.7-2.3); Osmolality Calculated 286 mOsm/kg (285-295); Potassium 3.8 mmol/L (3.5-5.1); Sodium 135 mmol/L (136-145); Total Bilirubin 0.5 mg/dL (0.15-1.2); Total Protein 9.6 g/dL (6.6-8.7)
[2019-12-15 23:04] LABS: Ammonia 76 umol/L (11-51)
[2019-12-15 23:04] LABS: Lactic Sepsis W/Reflex 1.7 mmol/L (0.5-2.2)
[2019-12-15 23:11] LABS: Alcohol Level < 10 mg/dL (0-10)
[2019-12-15 23:28] LABS: Troponin(5th) Baseline 15 ng/L (0-10)
--- NOTE | 2019-12-15 23:44 | ECG_ITS ---
[facility] ED Test Date: 2019-12-16 Pat Name: Melba Newman Department: Room: [facility] Gender: Female [employer]: : 1945 Requested By: Eva Marroquin Order Number: [id number] Fco MD: Margarita Brain M.D. Measurements Intervals [place] Rate: 106 P: 66 OR: 181 QRS: -36 QRSD: 88 T: 64 QT: 350 QTc: 466 Interpretive Statements SINUS TACHYCARDIA WITH OCCASIONAL SUPRAVENTRICULAR PREMATURE COMPLEXES MARKED LEFT AXIS DEVIATION POSSIBLE ANTERIOR MYOCARDIAL INFARCTION, OF INDETERMINATE AGE Compared to ECG 12/15/2019 22:16:27 Myocardial infarct finding now present Sinus rhythm no longer present Ventricular premature complex(es) no longer present T-wave abnormality no longer present Electronically Signed On 12-16-2019 23:00:33 CDT by Margarita Brian M.D. [id number]
[2019-12-15 23:54] LABS: Add Urine Culture? No; Bacteria Urine 4+; Bilirubin Urine Neg (NEGATIVE); Blood Urine 3+ (Negative); Glucose Urine UA 1+ (Normal); Ketones Urine Negative (Negative); Leukocyte Esterase Urine 2+ (Negative); Nitrate Urine Negative (Negative); Protein Urine 2+ (Negative); RBC Urine >100 /hpf (0-2); Squamous Epithelial Cell Urine 0-4 (0-5); Urine Appearance Cloudy (CLEAR); Urine Color Yellow (Yellow); Urobilinogen Urine Norm (Negative); WBC Urine >100 /hpf (0-5); pH Urine 6.5 (5-7)
[2019-12-16] VITALS (25 sets, daily range): BP systolic 93–202; BP diastolic 34–114; PULSE 92–110; RESP 14–22; TEMP 37; O2SAT 94–100
[2019-12-16 00:03] LABS: Troponin 5 2HR 13.74 ng/L (0-10)
[2019-12-16 00:09] LABS: Troponin 5 2HR Delta -1.26 ABS# (0-10)
[2019-12-16] MEDS: ampicillin 1,000 MG in sodium chloride 0.9% (plus) 50 ML 100 MG IV ×5 (01:15→19:47)
--- NOTE | 2019-12-16 01:34 | PM.HP ---
Providers/Chief Complaint Admitting Physician: Germán Peters Primary Care Provider: Pilo Alexis MD Chief Complaint: ams History of Present Illness Melba Newman is a 74 year old female with 2 admissions earlier this month, initially on 11/29 with obstructive pyelonephritis, sepsis, with acute encephalopathy, acute kidney injury at which time was assessed by urology with placement of right ureteral stent and underwent treatment with Rocephin, subsequently discharged on Bactrim, was again admitted on 12/10 this time due to hematuria which was thought to be precipitated by cystitis, during which time received treatment with Rocephin and was discharged on 12/12 to complete antibiotic course with ciprofloxacin. Please see corresponding admission and discharge notes for details. No mental status changes were noted during last admission, but had on and off AMS during first admission, with changes attributed perhaps to underlying dementia. Both times she was discharged home declining penitentiary placement. Tonight she was evaluated in ER due to concern of altered mental status which began sometime around noon the day before and gradually worsened. During my visit the patient appears awake, but confused, restless, not answering questions or following commands reliably. History obtained from discussion with ER physician and from the charts. Could not contact patient's daughter on the listed phone number. In ER she is noted tachycardic, with mild tachypnea in addition to her confusion. She is afebrile. Blood pressure has been stable. She is saturating well on room air. Urinalysis is suggestive of UTI. Acute kidney injury appears to be persistent, although better than prior admissions with creatinine of 1.5. CT abdomen pelvis with noted right-sided ureteral stent with air in the collecting system and bladder, likely iatrogenic, without signs of obstruction. Incidentally noted constipation, chronic L4 compression fracture, right lower lobe atelectasis versus infiltrate, right middle lobe 9 mm nodule. Splenic hilar varices. Review of urine culture from prior admission reveal a quinolone resistant ESBL Klebsiella and enterococcus faecalis. Blood cultures with Corynebacterium in 2/3 bottles on 11/29 but negative from last admission. Urine culture from 11/29 with Raine albicans, but without any yeast growth from culture 12/10. With history of cirrhosis ammonia level is also checked and is 76. Review of Systems General: Reports: ROS unobtainable due to mental status and Other (Patient has been confused. She is unable to provide any review of systems.) Medications/Allergies Home Medications Medication Instructions Recorded Confirmed Last Taken Type duloxetine 30 mg capsule,delayed See Rx Instructions .ROUTE 06/23/19 12/11/19 Unknown History release .COMPLEX cap omeprazole 20 mg capsule,delayed 20 mg PO DAILY #30 cap 09/21/19 12/11/19 Unknown Rx release levothyroxine 150 mcg capsule 150 mcg PO DAILY #30 cap 09/28/19 12/11/19 Unknown Rx liraglutide 0.6 mg/0.1 mL (18 mg/3 1.8 mg SUBCUT Q24H #9 ml 09/28/19 12/11/19 Unknown Rx mL) subcutaneous pen injector ferrous sulfate 325 mg (65 mg 325 mg PO DAILY #30 tab 10/16/19 12/11/19 Unknown Rx iron) tablet pen needle, diabetic 31 gauge x #100 each 10/16/19 12/11/19 Unknown Rx /16 metoprolol tartrate 50 mg tablet 12.5 mg PO BID #60 tab 11/10/19 12/11/19 Unknown Rx aspirin [Adult Aspirin Regimen] 81 mg PO DAILY 11/30/19 12/11/19 Unknown History insulin lispro [Humalog KwikPen See Rx Instructions .ROUTE .COMPLEX 11/30/19 12/11/19 Unknown History Insulin] amlodipine 5 mg PO DAILY 30 Days #30 tab 12/05/19 12/11/19 Unknown Rx Lantus U-100 Insulin 40 unit SUBCUT BID 12/11/19 12/11/19 Unknown History gabapentin 800 mg PO TID 12/11/19 12/11/19 Unknown History oxybutynin chloride 5 mg PO DAILY 12/11/19 12/11/19 Unknown History spironolactone 25 mg PO DAILY 12/11/19 12/11/19 Unknown History ciprofloxacin HCl [Cipro] 500 mg PO BID 3 Days #6 tab 12/13/19 Unknown Rx albuterol sulfate 90 mcg/actuation 2 puff INHALATION Q6H PRN #8.5 gm 12/14/19 Unknown Rx aerosol inhaler allopurinol 100 mg tablet 100 mg PO DAILY #30 tab 12/14/19 Unknown Rx Allergies Allergy/AdvReac Type Severity Reaction Status Date / Time celecoxib [From Celebrex] Allergy Intermediate confusion Verified 12/14/19 10:28 meperidine [From Demerol] Allergy Unknown Verified 12/14/19 10:28 theophylline Allergy Unknown Verified 12/14/19 10:28 PFSH Acute PFSH: Medical History Cirrhosis of liver COPD (chronic obstructive pulmonary disease) Dementia without behavioral disturbance Diabetes mellitus Fibromyalgia Frailty GERD (gastroesophageal reflux disease) Hypertension Surgical History S/P cataract extraction S/P cholecystectomy Status post carpal tunnel release of both wrists Family History Other Cancer Diabetes Heart disease Social History Smoking and tobacco status: never smoked Alcohol intake: never Marital status: / History of recent travel: No Current gender identity: Female Vitals/I&O/Wt Last Vital Signs Temp 99.3 F 12/15/19 21:38 Pulse 110 H 12/16/19 00:48 Resp 20 H 12/16/19 00:48 BP 124/34 12/16/19 00:48 Pulse Ox 97 12/16/19 00:48 Weight last 48 hrs Weight 92.986 kg Physical Exam Const: COMMON NORMALS: no acute distress; negative for patient oriented x3 NUTRITIONAL APPEARANCE: obese ORIENTATION/CONSCIOUSNESS: Yes confused (looking around, tries to make eye contact to loud voice) OTHER: moving about in bed HENMT: COMMON NORMALS: oropharynx normal Neck/C-Spine: COMMON NORMALS: no JVD Resp: COMMON NORMALS: normal respiratory effort and clear to auscultation bilaterally AUSCULTATION: clear to auscultation bilaterally and rales (Few scattered coarse crackles.) Cardio: COMMON NORMALS: no JVD, regular rhythm, S1 normal heart sound present, S2 normal heart sound present and No murmurs present (Cardio) RATE: tachycardic RHYTHM: regular rhythm HEART SOUNDS: S1 normal heart sound present and S2 normal heart sound present GI: COMMON NORMALS: Normal to inspection, nondistended, normoactive bowel sounds present, Soft to palpation and non-tender PALPATION: Yes Soft to palpation Extremity: COMMON NORMALS: no joint enlargement and no pedal edema Neuro: COMMON NORMALS: moves all extremities; negative for patient oriented x3 Skin: COMMON NORMALS: no rashes or lesions noted GENERAL SKIN EXAM: no rashes or lesions noted Urinary Catheter Management^: Chow: Cath Placed During This Visit: yes Urinary Catheter Date of Insertion: 12/15/19 Urinary Catheter Time of Insertion: 23:42 Data : 12/15/19 22:26 12/15/19 22:26 Micro: Microbiology 12/15/19 23:40 Blood Culture - Preliminary Blood SPECIMEN COLLECTED 12/15/19 12:40 Blood Culture - Preliminary Blood SPECIMEN COLLECTED A&P Assessment and plan (1) Acute encephalopathy: Multifactorial acute encephalopathy secondary to sepsis with complicated urinary tract infection, possibly pneumonia, as well as hepatic encephalopathy with elevated ammonia. Also with underlying dementia. Appears things have gotten progressively worse since about in noon the day before yesterday, although I could not get the details as I could not get in touch with her daughter. Please confirm details tomorrow. Patient herself is confused and unable to provide history. She is roaming about her bed, tries to make eye contact to loud voice, otherwise uncooperative. Treat underlying conditions as below currently in intensive care unit. Check TSH. For now hold oral medications. If becoming significantly restless, may order one-to-one sitter. Status: Acute (2) Sepsis: Secondary to complicated urinary tract infection possibly also pneumonia as below. This appears to be severe sepsis with resultant acute encephalopathy. Does not appear to be in septic shock as lactate is not elevated. Blood pressures have been stable. Due to severe sepsis, multifactorial encephalopathy at this time admit to ICU. Blood cultures collected. Antibiotics as below for UTI and pneumonia. Received 30 mL/kg fluid challenge. Follow blood culture results. Of note 2/3 bottles with Corynebacterium species on blood culture from 11/29. Probably still contamination given lack of growth on other cultures, however, low threshold for additional assessment given recurrent sepsis. Status: Acute Qualifiers: Sepsis acute organ dysfunction status: with acute organ dysfunction Sepsis type: sepsis due to unspecified organism Severe sepsis acute organ dysfunction type: encephalopathy Qualified Code(s): A41.9 - Sepsis, unspecified organism; R65.20 - Severe sepsis without septic shock; G93.40 - Encephalopathy, unspecified (3) UTI (urinary tract infection): Complicated urinary tract infection, suggested by UA, with sepsis as above. Previously with obstructive pyelonephritis with right ureteral stent placed during first admission in the beginning of the month. Stent is visualized in good positioning on CT scan, with ureteral and bladder air which is not unexpected. ER physician discussed the case with her urologist, who states they are available for consultation should anything change. Urine cultures from 11/29 with Raine albicans at which time she was treated. Urine cultures from 12/10 without Raine, but with ESBL Klebsiella, and enterococcus faecalis, both quinolone resistant. She received a dose of Primaxin in ER, for now will continue same at renal dosing until repeat culture results are available. Given quinolone resistant enterococcus, with intermediate sensitivity to vancomycin with MC of 2, will add ampicillin to the regimen to which the organism was sensitive. For now hold off on additional antifungal treatment given no growth on the most recent culture, however, low threshold to broaden with antifungal in case of lack of improvement. Status: Acute (4) Pneumonia: Right lower lobe, possibly from aspiration. Primaxin as above. Aspiration precautions. For now n.p.o. until mental status improves. Status: Acute (5) Cirrhosis of liver: With hepatic encephalopathy, with ammonia level 76. At this time n.p.o. We will add lactulose to be given rectally. Status: Acute (6) Dementia without behavioral disturbance: Supportive care at this time. If becoming restless may need one-to-one sitter. Status: Acute (7) DM2 (diabetes mellitus, type 2): Lantus, currently at reduced dosing as is n.p.o. Sliding scale insulin. Status: Acute (8) COPD (chronic obstructive pulmonary disease): Not currently in exacerbation. Nebs as needed. Status: Acute Additional A&P Information Hematuria: Gross hematuria was present during last admission, currently only microscopic, suspected again related to urinary tract infection, cystitis. Acute kidney injury: Creatinine is somewhat better than last admissions, with creatinine down to 1.5. No recent baseline, but previously appears to have been around 1-1.2, although this was a while ago, and perhaps may have reached new baseline. Avoid nephrotoxins. Monitor renal function. Renally adjust medications. Mild troponin elevation: Without definitive peak. Suspected secondary to demand ischemia with severe sepsis. GERD: Protonix IV. Hypothyroidism: Check TSH. Resume levothyroxine once able to take p.o. medications. HTN: Monitor blood pressures, currently at goal, although oral medications on hold for now. Depression: Duloxetine on hold for now, resume when able to take Iron deficiency: Iron on hold Gout: Allopurinol on hold Other chronic medical conditions: Oral medications on hold for now. CODE STATUS not clear at the moment, was listed as full code last time. For now we will treat as same. Please discuss with family or patient when available. Attestations Medical Necessity Statement*: Admission of over 2 midnights is going to be needed for assessment of management of severe sepsis, with acute encephalopathy, complicated urinary tract infection, pneumonia, hepatic encephalopathy with underlying liver cirrhosis, underlying dementia, and other medical comorbidities. Critical Care Time: 65 minutes critical care time spent on assessment and management of patient with severe sepsis, with acute encephalopathy, complicated urinary tract infection, pneumonia, hepatic encephalopathy with underlying cirrhosis and multiple medical comorbidities, assessment of hemodynamic condition, empiric treatment of severe sepsis, source of sources of sepsis with adjustment of antibiotic regimen given history of resistant infections, assessment of other causes of encephalopathy, assessment of pneumonia, respiratory condition, causes of pneumonia and treatments, discussion with ER physician, including urological recommendations, discussion with ICU nursing staff. 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
[2019-12-16] MEDS: lactulose oral liq 20 gm/30 mL UDC 200 GM PR ×3 (02:32→11:37)
--- NOTE | 2019-12-16 02:36 | USR_ITS ---
PROCEDURE INFORMATION: Exam: US Abdomen Limited, Other. Exam date and time: 12/16/2019 7:29 AM Age: 74 years old Clinical indication: Cirrhosis. Assess for ascities. TECHNIQUE: Imaging protocol: Real-time ultrasound of the abdomen with image documentation. Examination is focused on the region of clinical interest. COMPARISON: CT ABDOMEN/PELVIS 12/15/2019 10:28 PM FINDINGS: Intraperitoneal space: Evaluation of all 4 quadrants demonstrates no ascites. US/US abdomen limited [address]140 IMPRESSION: No ascites.
[2019-12-16] MEDS: pantoprazole 40 mg SDV IVP (03:06)
[2019-12-16] MEDS: insulin glargine 100 units/1 mL 15 UNIT SUBCUT (03:29)
--- NOTE | 2019-12-16 03:40 | PC.NURSE ---
DR IRISH POLO NOTIFIED OF PROLAPSED RECTUM, DR PEREA GAVE ORDER FOR 0.25 MG OF ATIVAN IV PUSH NOW.
--- NOTE | 2019-12-16 03:44 | ECG_ITS ---
[facility] Test Date: 2019-12-16 Pat Name: Melba Newman Department: Room: ICU08 Gender: Female Nurse Transplant: : [id number] Requested By: Eva Marroquin Order Number: [id number] Fco MD: Margarita Brian M.D. Measurements Intervals [place] Rate: 96 P: 64 MI: 182 QRS: -34 QRSD: 84 T: 49 QT: 354 QTc: 449 Interpretive Statements SINUS RHYTHM MARKED LEFT AXIS DEVIATION LOW QRS VOLTAGE IN PRECORDIAL LEADS POSSIBLE ANTERIOR MYOCARDIAL INFARCTION, OF INDETERMINATE AGE Compared to ECG 12/16/2019 01:04:54 Low QRS voltage now present Sinus tachycardia no longer present Myocardial infarct finding still present Electronically Signed On 12-16-2019 22:58:20 CDT by Margarita Brian M.D. [id number]
--- NOTE | 2019-12-16 03:54 | PC.NURSE ---
DR HOLT ROUNDED AND SAW PT PROLAPSED RECTUM, HE SAID TO GO AHEAD AND HOLD ATIVAN SINCE PT IS NOW MORE ALERT.
[2019-12-16 04:53] LABS: Basophils % 0.2 %; Eosinophils # 0.1 10^3/uL (0.0-0.8); Eosinophils % 2.5 %; Hematocrit 30.5 % (37.0-47.0); Hemoglobin 9.5 g/dL (11.5-15.3); Lymphocytes # 1.6 10^3/uL (0.8-4.8); Mean Corpuscular HGB Conc 31.1 g/dL (30.0-36.0); Mean Corpuscular Hemoglobin 29.4 pg (28.0-34.0); Mean Corpuscular Volume 94.4 fL (81-99); Mean Platelet Volume 9.7 fL (7.4-10.4); Monocytes # 0.4 10^3/uL (0.2-0.9); Monocytes % 6.5 %; Neutrophils # 3.4 10^3/uL (1.8-7.7); Neutrophils % 61.4 %; Nucleated Red Blood Cells % 0 %; Platelet Count 226 10^3/cmm (130-400); Red Blood Count 3.23 10^6/uL (4.1-5.3); Red Cell Distribution Width 17.4 % (12.1-15.1); White Blood Count 5.5 10^3/uL (4.0-10.0)
[2019-12-16 04:57] LABS: Ammonia 64 umol/L (11-51)
[2019-12-16 05:02] LABS: Alanine Aminotransferase 12 U/L (0-33); Albumin Level 2.9 g/dL (3.5-5.2); Alkaline Phosphatase 154 IU/L (35-105); Anion Gap 15.8 (5-19); Aspartate Amino Transferase 32 U/L (0-32); Blood Urea Nitrogen 29 mg/dL (8-23); Carbon Dioxide 18 mmol/L (22-29); Chloride 109 mmol/L (98-107); Globulin 5.4 g/dL (1.3-4.6); Glucose 230 mg/dL (65-115); Osmolality Calculated 292 mOsm/kg (285-295); Potassium 3.8 mmol/L (3.5-5.1); Sodium 139 mmol/L (136-145); Total Bilirubin 0.5 mg/dL (0.15-1.2); Total Protein 8.3 g/dL (6.6-8.7)
[2019-12-16 05:09] LABS: Thyroid Stimulating Hormone 1.52 uIU/mL (0.27-4.20)
[2019-12-16 05:29] LABS: Glucose Point of Care 251 mg/dL (70-110)
[2019-12-16 05:37] LABS: Slide Review Slide Review Perform
--- NOTE | 2019-12-16 05:58 | PC.NURSE ---
SHIFT SUMMARY PT HAS REMAINED CONFUSED. PT IV REMAINS PATENT. PT HAS HAD ADEQUATE URINE OUTPUT. PT HAS HAD BOWEL MOVEMENTS. PT DOES NOT FOLLOW COMMANDS, AT TIMES WILL OPEN EYES TO NAME. PT AIRWAY PROTECTED.
[2019-12-16 07:49] LABS: Glucose Point of Care 150 mg/dL (70-110)
--- NOTE | 2019-12-16 10:33 | PC.NURSE ---
Pt home medication list put in chart. Taken from [facility].
--- NOTE | 2019-12-16 11:01 | PC.NURSE ---
Pt refuses to wear mask.
[2019-12-16] MEDS: sodium chloride 0.9% 1,000 ML 100 ML IV ×2 (11:38→20:12)
[2019-12-16 11:40] LABS: Glucose Point of Care 136 mg/dL (70-110)
--- NOTE | 2019-12-16 12:30 | PM.PN ---
Subjective Subjective: Interval history: no acute complaints. Additional history obtained from daughter this morning. Since discharge, she reports that patient has been having worsening in her confusion during the evening times. She appears to be at baseline during the day and her evneing spent wailing . It is unceratin if she actually takes her medications today. Per family, [facility] sets up her box and they are unsure what she actually takes. Medications: Reviewed: Yes Vitals/I&O/Wt Last Vital Signs Temp 98.6 F 12/16/19 02:47 Pulse 92 12/16/19 10:00 Resp 21 H 12/16/19 07:00 BP 125/54 12/16/19 10:00 Pulse Ox 98 12/16/19 10:00 12/15/19 12/16/19 12/16/19 22:59 06:59 14:59 Intake Total 3039.58 / 3039.58 Output Total 650 / 650 Balance 2389.58 / 2389.58 Weight last 48 hrs Weight 86.409 kg Weight 92.986 kg Physical Exam Narrative: EXAM NARRATIVE: GEN: Awake, alert, answers simple questions appropriately CVS: S1S2 N RS: CTA B/L Abd: Soft, nt/nd , bs+ TAIL EDGER: no focal neuro deficits Urinary Catheter Management^: Chow: Cath Placed During This Visit: yes Reason for Continuing Indwelling Catheter: Accurate Measurement of Urinary Output in Critically Ill Patients Urinary Catheter Date of Insertion: 12/15/19 Urinary Catheter Time of Insertion: 23:42 Data : 12/16/19 04:07 12/16/19 04:07 Micro: Microbiology 12/15/19 23:40 Blood Culture - Preliminary Blood SPECIMEN COLLECTED 12/15/19 12:40 Blood Culture - Preliminary Blood SPECIMEN COLLECTED A&P Assessment and plan (1) Acute encephalopathy: Upon admission, patient had mild tachypnea, tachycardia with + UA therefore suepected to have encephalopathy. On my assesment today, she appears to be at her baseline mentation. Today she was able to eat food, mostly self-feed, on eating she says things such as I am sure was hungry , says thank you appropriately. She has mostly slept through the day today. On her previous admissions that I have seen her both times, she often tends to get confused. There are times when she is alert and oriented x3, and at other times she is only oriented x1. She often confuses her 2 daughters 1 of whom is , having passed. Recently. However upon being reoriented she does remember the details. However I do notice that she has become more irritable since the beginning of the month and is having some more irritable and aggressive behavior than I have witnessed earlier admissions. She may have had some encephalopathy initially during the course of admission, however now it appears to be resolved Status: Acute (2) Sepsis: Met criteria with tachypnea and tachycardia upon admission. This appears to be resolved now. Status: Acute Qualifiers: Sepsis acute organ dysfunction status: unspecified Sepsis type: sepsis due to unspecified organism Qualified Code(s): A41.9 - Sepsis, unspecified organism (3) UTI (urinary tract infection): -Patient has a positive UA this admission. She recently has history of ongoing pyelonephritis since September of this year and not surprisingly continues to have a positive UA. She also now has a foreign body by way of an indwelling right ureteral stent. It is likely that patient has developed a component of chronic cystitis, therefore she may have positive UAs going forward owing to inflammatory changes. In the absence of fever, flank tenderness, symptoms of cystitis or pyelonephritis, this does not necessarily represent complicated UTI each time. However given that patient was reportedly encephalopathic at admission, will continue a short course of antibiotics. I do believe that the gram-negative rods in her urine represent more of colonization. During the first and second admissions, she received empiric treatment with ceftriaxone with clinical improvement, which suggests that GNR is currently likely to be a colonizer, improving without directed abx therapy. Continue Primaxin for now given recovery of ESBL Klebsiella recently. Will aim for 5-7 day course. E.fecalis likely also to be GI colonizer, as such covered with primaxin, d/c ampicillin. -Previously with obstructive pyelonephritis with right ureteral stent placed during first admission in the beginning of the month. Stent is visualized in good positioning on CT scan, with ureteral and bladder air which is not unexpected. -Urine cultures from 11/29 with Raine albicans at which time she was treated. Urine cultures from 12/10 without Raine, but with ESBL Klebsiella, and enterococcus faecalis For now hold off on additional antifungal treatment given no growth on the most recent culture, however, low threshold to broaden with antifungal in case of lack of improvement. She has a h/o fungemia in September 2019, per review of her prior records, this cleared quickly, she received a course of fluconazole appropriately and has had multiple negative blood cultures since then. Most recent urine cx also without C. albicans. Very low suspicion for chronic fungal meningitis, which as such would be atypical for raine meningitis. Status: Acute Qualifiers: Hematuria presence: with hematuria Urinary tract infection type: site unspecified Qualified Code(s): N39.0 - Urinary tract infection, site not specified; R31.9 - Hematuria, unspecified (4) Pneumonia: Right lower lobe, possibly from aspiration. Primaxin as above. Aspiration precautions. For now n.p.o. until mental status improves. Status: Acute (5) Cirrhosis of liver: With hepatic encephalopathy, with ammonia level 76. Lactulose to be used po. Patient is able to tolerate po intake without issues. Status: Acute (6) DM2 (diabetes mellitus, type 2): Sliding scale insulin to continue. On previous admissions she was noted to be hyperglycemic. I am uncertain how she takes her insulin at home. She has no insight into her multiple medical issues and based on my assesment, i do not feel she can take her medications reliably due to dementia. Status: Acute (7) COPD (chronic obstructive pulmonary disease): Not currently in exacerbation. Nebs as needed. Status: Acute (8) Dementia: I have spoken to her PMD Dr. Alexis and reviewed her prior PCP notes. She is clearly documented to have dementi and has been recommeneded NH placement in the past. Her , who used to be her primary caregiver until earlier this year had refused in compliance with her wishes. It appears that her dementia is clearly worsening since the passing fo her usual caregivers which were her and daughter. Her other daughter Cristela, along with her has recently moved in with her since their passing of her usual caregivers and per my discussion with her, states that she was unaware of her dementia diagnosis. She has noticed this decline only recently since September and at this time, is very concerned that her mentation is related to her medical issues rather than dementia. I have attempted to explain that her pattern appears to be periodic delirium vs behavior disturbances arising from dementia worsening precipitated by stressors such as loss of family members, illnesses, etc and as such do not represent true encephalopathy. Multiple CT heads have been negtve for acute pathology, blood cx is negative. She fluctuates with her mentation, being completely alert and awake at some times and at other being oriented x 1 requiring frequent orientation, which is very unusual for enecphalopathy. I have noticed increased irritability and uncooperative behavior between first admission to currently, but no other gross mental status change. Will get psychiatry consult for specialist opinion regarding dementia and how best to address changing behaviors Status: Acute Additional A&P Information Hematuria: Gross hematuria was present during last admission, currently only microscopic Acute kidney injury: improved over previous admissions Mild troponin elevation: Without definitive peak. Suspected secondary to demand ischemia GERD: Protonix po Hypothyroidism: Check TSH. 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
[2019-12-16 16:49] LABS: Glucose Point of Care 88 mg/dL (70-110)
[2019-12-16 20:47] LABS: Glucose Point of Care 246 mg/dL (70-110)
[2019-12-17] VITALS (16 sets, daily range): BP systolic 111–158; BP diastolic 49–96; PULSE 90–105; RESP 18–22; TEMP 36.6–36.8; O2SAT 95–100
[2019-12-17] MEDS: ampicillin 1,000 MG in sodium chloride 0.9% (plus) 50 ML 100 MG IV ×2 (01:11→06:37)
[2019-12-17 03:04] LABS: Glucose Point of Care 192 mg/dL (70-110)
[2019-12-17] MEDS: insulin glargine 100 units/1 mL 15 UNIT SUBCUT (03:06)
[2019-12-17] MEDS: pantoprazole 40 mg SDV IVP (03:07)
[2019-12-17] MEDS: lactulose oral liq 20 gm/30 mL UDC 200 GM PR (04:39)
[2019-12-17] MEDS: lactulose oral liq 20 gm/30 mL UDC PO ×2 (05:01→17:23)
--- NOTE | 2019-12-17 06:24 | PC.NURSE ---
SHIFT SUMMARY PT HAS REMAINED CONFUSED. YELLING OUT AT TIMES, PT IS NOT TRYING TO GET OUT OF BED. DR PEREA CHANGED LACTULOSE TO PO, PT REFUSED ENEMA. PT WAS GIVEN BED BATH. PT IV REMAINS PATENT. PT TURNS SELF, FAVORS LEFT SIDE. NO SKIN BREAKDOWN NOTED.
[2019-12-17 07:11] LABS: Glucose Point of Care 158 mg/dL (70-110)
--- NOTE | 2019-12-17 08:07 | PC.NURSE ---
Pt very aggressive and yelling for nursing staff to get out of her room.
[2019-12-17] MEDS: sodium chloride 0.9% 1,000 ML 100 ML IV (08:12)
--- NOTE | 2019-12-17 08:30 | PC.NURSE ---
Pt refusing to allow temperature to be taken.
--- NOTE | 2019-12-17 11:00 | PC.NURSE ---
pt talking to Dr. Menon at this time. Pt pulled IV out and refuses to let staff restart IV. Dr. Lu notified. Pt spoke with Cristela, her daughter, on the phone with assist of staff. She is confused and is wanting to go home at this time.
[2019-12-17 11:19] LABS: Glucose Point of Care 337 mg/dL (70-110)
--- NOTE | 2019-12-17 11:34 | PM.PN ---
Subjective Subjective: Interval history: This morning patient is quite agitated. She has pulled out her IV line as she wishes to return home. She is unwilling to talk to me this morning because she says she is quite annoyed by my presence at this time. She states she knows her name however does not willing to tell me. She correctly tells me that she lives with her daughter Cristela, however is not able to tell me the name of her son-in-law or how many grandchildren she has. She does remember her has this morning. Upon being evaluated by Dr. Menon later today, which she stated her age as being 55, was called quite surprised that this is 2019. She was able to correctly tell him her date of and upon being asked questions were starting to get more withdrawn with the realization that she is not answering these questions correctly. She is able to sit up in bed and self feed. She is refusing both her IV and oral medications this morning in spite of counseling. States she does not care if her vital signs are abnormal or how important her medications are for her. Medications: Reviewed: Yes Vitals/I&O/Wt Last Vital Signs Temp 98.2 F 12/17/19 00:27 Pulse 105 H 12/17/19 10:00 Resp 16 12/16/19 20:04 BP 143/61 12/17/19 10:00 Pulse Ox 98 12/17/19 10:00 12/16/19 12/17/19 12/17/19 22:59 06:59 14:59 Intake Total 1563.334 / 0343.752 5311 / 3823.334 240 / 240 Output Total 950 / 950 1250 / 2200 Balance 613.334 / 763.334 860 / 1623.334 240 / 240 Weight last 48 hrs Weight 85.956 kg Weight 86.409 kg Weight 92.986 kg Physical Exam Narrative: EXAM NARRATIVE: GEN: Awake, alert, forgetful, quite annoyed at realizing that she has memory gaps, unwilling to answer questions when she doesnt remeber the answers CVS: S1S2 N RS: CTA B/L Abd: Soft, nt/nd , bs+ 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: no focal neuro deficits, moving all extremities in bed Urinary Catheter Management^: Chow: Cath Placed During This Visit: yes Reason for Continuing Indwelling Catheter: Accurate Measurement of Urinary Output in Critically Ill Patients Urinary Catheter Date of Insertion: 12/15/19 Urinary Catheter Time of Insertion: 23:42 Data : 12/16/19 04:07 12/16/19 04:07 Micro: Microbiology 12/15/19 23:27 Urine Culture - Preliminary Urine,Clean Catch Gram Negative Rods 12/15/19 23:40 Blood Culture - Preliminary Blood NEGATIVE TO DATE 12/15/19 12:40 Blood Culture - Preliminary Blood NEGATIVE TO DATE A&P Assessment and plan (1) Acute encephalopathy: Upon admission, patient had mild tachypnea, tachycardia with + UA therefore suepected to have sepsis with encephalopathy. On my assesment on subsequent days, she appears to be at her baseline mentation, though with noted increased irritability and combativeness in her demeanor. She was quite pleasant and cooperative on first admission in early November, and currently does not wish to enagage in extended conversation. She is otherwise alert and awake, though forgetful and requiring reorientation. She may have had some encephalopathy initially during the course of admission, however now it appears to be resolved Status: Acute (2) Sepsis: Met criteria with tachypnea and tachycardia upon admission. This appears to be resolved now. Status: Acute Qualifiers: Sepsis type: sepsis due to unspecified organism Sepsis acute organ dysfunction status: unspecified Qualified Code(s): A41.9 - Sepsis, unspecified organism (3) UTI (urinary tract infection): -Patient has a positive UA this admission. -She recently has history of recurrent pyelonephritis since September of this year and continues to have a positive UA. She also now has a foreign body by way of an indwelling right ureteral stent. It is likely that patient has developed a component of chronic cystitis, therefore she may have positive UAs going forward owing to inflammatory changes. In the absence of fever, flank tenderness, other symptoms of cystitis or pyelonephritis, this does not necessarily represent complicated UTI each time. However given that patient was reportedly encephalopathic at admission and has a stent in place, reasonable to continue a short course of antibiotics of 5-7 days to cover ESBL Klebsiella isolated from recent urine cultures. - CT abdomen/pelvis grossly unchanged with no hydronephrosis, steent in position - ESBL organisms in her urine are more likely to represent colonization at this time. During the first and second admissions, she received empiric treatment with ceftriaxone with clinical improvement, which suggests that GNR is currently likely to be a colonizer, with improving symptoms without directed abx therapy. - E.fecalis likely also to be GI colonizer, as such covered with primaxin, discontinue additional ampicillin. -Urine cultures from 11/29 with Raine albicans at which time she was treated. Urine cultures from 12/10 without Raine, but with ESBL Klebsiella, and enterococcus faecalis - For now hold off on additional antifungal treatment given no growth on the most recent culture. Of note, she has a h/o fungemia in September 2019, per review of her prior records, this cleared quickly, she received a course of fluconazole appropriately and has had multiple negative blood cultures since then. Most recent urine cx also without C. albicans. Very low suspicion for chronic fungal meningitis, which as such would be atypical for raine meningitis. Status: Acute Qualifiers: Hematuria presence: with hematuria Urinary tract infection type: site unspecified Qualified Code(s): N39.0 - Urinary tract infection, site not specified; R31.9 - Hematuria, unspecified (4) Pneumonia: Possible right lower lobe infiltrate- atelactasis vs pneumonia- appropriately covered with Primaxin. Status: Acute (5) Cirrhosis of liver: With possible hepatic encephalopathy, ammonia level 76. Refusing lactulose Status: Acute (6) DM2 (diabetes mellitus, type 2): Sliding scale insulin to continue. On previous admissions she was noted to be hyperglycemic. I am uncertain how she takes her insulin at home. She has no insight into her multiple medical issues and based on my assesment, i do not feel she can take her medications reliably due to dementia. Status: Acute (7) COPD (chronic obstructive pulmonary disease): Not currently in exacerbation. Nebs as needed. Status: Acute (8) Dementia: I have spoken to her PCP Dr. Alexis and reviewed her prior PCP notes. She is documented to have dementia and has been recommeneded NH placement in the past. Her , who used to be her primary caregiver until earlier this year had refused in compliance with her wishes. It appears that her dementia is worsening since the passing of her usual caregivers which were her and daughter. Her other daughter Cristela, along with her has recently moved in with her since their passing of her usual caregivers and per my discussion with her, states that she was unaware of her dementia diagnosis. She has noticed this decline only recently since September and at this time, is very concerned that her mentation is related to her medical issues rather than dementia. I have attempted to explain that her pattern appears to be periodic delirium vs behavior disturbances arising from dementia worsening precipitated by stressors such as loss of family members, illnesses, etc and as such do not represent true encephalopathy each time. Multiple CT heads have been negative for acute pathology, blood cx is negative. She fluctuates with her mentation, being completely alert and awake at some times and at other being oriented x 1 requiring frequent orientation, which is very unusual for enecphalopathy. I have noticed increased irritability and uncooperative behavior between first admission to currently, but no other gross mental status change. Will get psychiatry consult for specialist opinion regarding dementia and how best to address changing behaviors. In the interim start zyprexa 2.5mg po BID Status: Acute (9) Rectal prolapse: Noted upon admission which was able to be reduced. Surgery evaluation as an outpatient for the same Status: Acute Additional A&P Information Hematuria: Gross hematuria was present during last admission, currently only microscopic. ASA on hold. Acute kidney injury: improved over previous admissions Mild troponin elevation: Without definitive peak. Suspected secondary to demand ischemia GERD: Protonix po Hypothyroidism: TSH WNL. Resume levothyroxine HTN: Monitor blood pressures, resume home medications Depression: Duloxetine on hold for now,started on zyprexa instead Iron deficiency: Iron supplementation CODE STATUS : Full code DVT ppx: heparin DISPO: discharge to SNF when medically ready Attestations Medical Necessity Statement*: psychaitry assessment for behavior changes, optimization prior to discharge to NH, awaiting prior auth Coding Level of Care Code Acute Change Release Manager for [facility] Fwd Diagnoses Acute encephalopathy G93.40 Sepsis A41.9 Sepsis type: sepsis due to unspecified organism Sepsis acute organ dysfunction status: unspecified UTI (urinary tract infection) N39.0; R31.9 Hematuria presence: with hematuria Urinary tract infection type: site unspecified Pneumonia J18.9 Cirrhosis of liver K74.60 DM2 (diabetes mellitus, type 2) E11.9 COPD (chronic obstructive pulmonary disease) J44.9 Dementia F03.90 Rectal prolapse K62.3
[2019-12-17 16:38] LABS: Glucose Point of Care 366 mg/dL (70-110)
[2019-12-17] MEDS: metoprolol tartrate 25 mg Tablet 12.5 MG PO (17:23)
[2019-12-17] MEDS: OLANZapine 5 mg TABLET 2.5 MG PO (17:24)
[2019-12-17] MEDS: heparin 5,000 unit/mL INJ 1 mL 5000 UNIT SUBCUT (17:38)
[2019-12-17] MEDS: OLANZapine 10 mg VIAL 5 MG IM (17:38)
[2019-12-17 21:28] LABS: Glucose Point of Care 311 mg/dL (70-110)
--- NOTE | 2019-12-17 23:08 | PC.NURSE ---
Notified Dr Peters that pt has IV primaxin ordered at 2330 and pt has refused to let a nurse start iv two times. Lorraine ordered to hold 2330 dose of primaxin and attempt to start an iv in the morning again.
--- NOTE | 2019-12-17 23:24 | PM.EVENT ---
Event Note Event Note: Patient on several attempts declined IV re-insertion needed for of Primaxin this evening around 9:30PM. Retried again in several hours, but still not willing to have IV inserted. She is generally disagreeable, but not combative and does take PO medcations per nursing staff. Has 1:1 sitter. She has missed the current Primaxin dose. I requested that placement of IV be again tried in the morning and for now we will give her a break as her condition is otherwise stable. If still refusing, consider other alternatives PO, observation, risk vs benefit of medical sedative agents as well as discussion regarding family's goals of care considering patient's wishes in the setting of episodes of recurrent cognitive fluctuations due to possibly encephalopathy or dementia being evaluated by the primary team.
[2019-12-18] VITALS (10 sets, daily range): BP systolic 124–158; BP diastolic 65–72; PULSE 73–95; RESP 16–20; TEMP 36.6–37.4; O2SAT 94–99
[2019-12-18 04:21] LABS: Basophils % 0.2 %; Eosinophils # 0.3 10^3/uL (0.0-0.8); Eosinophils % 6.1 %; Hematocrit 25.6 % (37.0-47.0); Hemoglobin 7.9 g/dL (11.5-15.3); Lymphocytes % 45.9 %; Mean Corpuscular HGB Conc 30.9 g/dL (30.0-36.0); Mean Corpuscular Hemoglobin 29.2 pg (28.0-34.0); Mean Corpuscular Volume 94.5 fL (81-99); Mean Platelet Volume 9.6 fL (7.4-10.4); Monocytes # 0.5 10^3/uL (0.2-0.9); Monocytes % 11.3 %; Neutrophils # 1.5 10^3/uL (1.8-7.7); Neutrophils % 36.3 %; Nucleated Red Blood Cells % 0 %; Platelet Count 306 10^3/cmm (130-400); Red Blood Count 2.71 10^6/uL (4.1-5.3); Red Cell Distribution Width 17.2 % (12.1-15.1); White Blood Count 4.3 10^3/uL (4.0-10.0)
[2019-12-18 04:42] LABS: Alanine Aminotransferase 11 U/L (0-33); Alkaline Phosphatase 161 IU/L (35-105); Anion Gap 15.3 (5-19); Aspartate Amino Transferase 33 U/L (0-32); Blood Urea Nitrogen 22 mg/dL (8-23); Calcium 8.9 mg/dL (8.5-10.5); Carbon Dioxide 19 mmol/L (22-29); Chloride 110 mmol/L (98-107); Globulin 4.9 g/dL (1.3-4.6); Glucose 94 mg/dL (65-115); Osmolality Calculated 288 mOsm/kg (285-295); Potassium 3.3 mmol/L (3.5-5.1); Sodium 141 mmol/L (136-145); Total Bilirubin 0.5 mg/dL (0.15-1.2); Total Protein 7.9 g/dL (6.6-8.7)
[2019-12-18 07:08] LABS: Glucose Point of Care 157 mg/dL (70-110)
[2019-12-18] MEDS: levothyroxine 150 mcg Tablet PO (08:32)
[2019-12-18] MEDS: oxybutynin chloride XL 5 MG TABLET PO (08:32)
[2019-12-18] MEDS: ferrous sulfate EC 325 mg Tablet PO (08:32)
[2019-12-18] MEDS: pantoprazole DR 40 mg Tablet PO (08:32)
[2019-12-18] MEDS: metoprolol tartrate 25 mg Tablet 12.5 MG PO ×2 (08:32→17:36)
[2019-12-18] MEDS: amlodipine 5 mg Tablet PO (08:32)
[2019-12-18] MEDS: OLANZapine 5 mg TABLET 2.5 MG PO ×2 (08:32→17:36)
[2019-12-18] MEDS: allopurinol 100 mg Tablet PO (08:32)
--- NOTE | 2019-12-18 12:24 | P.PN_ITS ---
Subjective Subjective: Interval history: This morning patient continues to have episodes of confusion, is alert, does not know where she is, does not know the time, does not know why she is here, knows her 2 daughters names, does not know her grandchildren's names, has no particular complaints, remains afebrile, patient's IV was lost overnight, was quite resistant to replacement, I spoke to her this morning, was agreeable to placement of IV Medications: Reviewed: Yes Vitals/I&O/Wt Last Vital Signs Temp 97.8 F 12/18/19 11:36 Pulse 92 12/18/19 11:36 Resp 18 12/18/19 11:36 BP 158/70 12/18/19 11:36 Pulse Ox 99 12/18/19 11:36 12/17/19 12/18/19 12/18/19 22:59 06:59 14:59 Intake Total 240 / 480 120 / 120 Output Total 0 / 0 Balance 240 / 480 0 / 480 120 / 120 Weight last 48 hrs Weight 86.319 kg Weight 85.956 kg Physical Exam Narrative: EXAM NARRATIVE: Alert, Const: COMMON NORMALS: no acute distress and alert GENERAL APPEARANCE: cooperative ORIENTATION/CONSCIOUSNESS: Yes oriented to person and Yes confused; not oriented to place and not oriented to time HENMT: COMMON NORMALS: normocephalic HEAD & SCALP: normocephalic Neck/C-Spine: COMMON NORMALS: no JVD Resp: COMMON NORMALS: normal respiratory effort, No retractions, No use of accessory muscles and clear to auscultation bilaterally AUSCULTATION: clear t o auscultation bilaterally Cardio: COMMON NORMALS: no JVD, regular rate, regular rhythm, S1 normal heart sound present and S2 normal heart sound present RATE: regular rate RHYTHM: regular rhythm HEART SOUNDS: S1 normal heart sound present and S2 normal heart sound present GI: COMMON NORMALS: Normal to inspection, nondistended, normoactive bowel sounds present, Soft to palpation, non-tender, No hepatosplenomegaly present, no masses and no bruits PALPATION: Yes Soft to palpation and Yes No hepatosplenomegaly present Extremity: COMMON NORMALS: capillary refill normal, no clubbing, cyanosis or edema, no calf tenderness and no pedal edema Neuro: SENSORIUM/ORIENTATION: Yes alert, Yes oriented to person, No oriented to place and No oriented to time Urinary Catheter Management^: Chow: Cath Placed During This Visit: yes, but has since been removed by the nurse Reason for Continuing Indwelling Catheter: Not indwelling catheter Urinary Catheter Date of Insertion: 12/15/19 Urinary Catheter Time of Insertion: 23:42 Date Urinary Catheter Removed: 12/17/19 Data : 12/18/19 03:32 12/18/19 03:32 Micro: Microbiology 12/15/19 23:27 Urine Culture - Final Urine,Clean Catch Klebsiella pneumonia esbl A&P Assessment and plan (1) Acute encephalopathy: Upon admission, patient had mild tachypnea, tachycardia with + UA therefore suepected to have sepsis with encephalopathy. On my assesment on subsequent days, she appears to be at her baseline mentation, though with noted increased irritability and combativeness in her demeanor. She was quite pleasant and cooperative on first admission in early November, and cu rrently does not wish to enagage in extended conversation. She is otherwise alert and awake, though forgetful and requiring reorientation. My personal experience with Melba, is is that she is quite lively, she does engage in conversations, does have episodes of confusion, requires reorientati on. But this morning she is much more confused than her normal self, possibly as she has not received antibiotics overnight, and such as early in the morning Plan: -Acute encephalopathy likely secondary to UTI continue antibiotics, replace IV -Continue reorientation neuro checks Status: Acute (2) Sepsis: Met criteria with tachypnea and tachycardia upon admission. This appears to be resolved now. Status: Acute Qualifiers: Sepsis type: sepsis due to unspecified organism Sepsis acute organ dysfunction status: unspecified Qualified Code(s): A41.9 - Sepsis, unspecified organism (3) UTI (urinary tract infection): -Patient has a positive UA this admission. -She recently has history of recurrent pyelonephritis since September of this year and continues to have a positive UA. She also now has a foreign body by way of an indwelling right ureteral stent. It is likely that patient has developed a component of chronic cystitis, therefore she may have positive UAs going forward owing to inflammatory changes. In the absence of fever, flank tenderness, other symptoms of cystitis or pyelonephritis, this does not necessarily represent complicated UTI each time. However given that patient was reportedly encephalopathic at admission and has a stent in place, reasonable to continue a short course of antibiotics of 5-7 days to cover ESBL Klebsiella isolated from recent urine cultures. - CT abdomen/pelvis grossly unchanged with no hydronephrosis, steent in position - ESBL organisms in her urine are more likely to represent colonization at this time. During the first and second admissions, she received empiric treatment with ceftriaxone with clinical improvement, which suggests that GNR is currently likely to be a colonizer, with improving symptoms without directed abx therapy. - E.fecalis likely also to be GI colonizer, as such covered with primaxin, discontinue additional ampicillin. -Urine cultures from 11/29 with Raine albicans at which time she was treated. Urine cultures from 12/10 without Raine, but with ESBL Klebsiella, and enterococcus faecalis - For now hold off on additional antifungal treatment given no growth on the most recent culture. Of note, she has a h/o fungemia in September 2019, per review of her prior records, this cleared quickly, she received a course of fluconazole appropriately and has had multiple negative blood cultures since then. Most recent urine cx also without C. albicans. Very low suspicion for chronic fungal meningitis, which as such would be atypical for raine meningitis. -Urine culture on this admission does show ESBL Klebsiella, continue Primaxin Status: Acute Qualifiers: Hematuria presence: with hematuria Urinary tract infection type: site unspecified Qualified Code(s): N39.0 - Urinary tract infection, site not specified; R31.9 - Hematuria, unspecified (4) Pneumonia: Possible right lower lobe infiltrate- atelactasis vs pneumonia- appropriately covered with Primaxin. Status: Acute (5) Cirrhosis of liver: With possible hepatic encephalopathy, ammonia level 76. Refusing lactulose Status: Acute (6) DM2 (diabetes mellitus, type 2): Sliding scale insulin to continue. On previous admissions she was noted to be hyperglycemic. I am uncertain how she takes her insulin at home. She has no insight into her multiple medical issues and based on my assesment, i do not feel she can take her medications reliably due to dementia. Status: Acute (7) COPD (chronic obstructive pulmonary disease): Not currently in exacerbation. Nebs as needed. Status: Acute (8) Dementia: I have spoken to her PCP Dr. Alexis and reviewed her prior PCP notes. She is documented to have dementia and has been recommeneded NH placement in the past. Her , who used to be her primary caregiver until earlier this year had refused in compliance with her wishes. It appears that her dementia is worsening since the passing of her usual caregivers which were her and daughter. Her other daughter Cristela, along with her has recently moved in with her since their passing of her usual caregivers and per my discussion with her, states that she was unaware of her dementia diagnosis. She has noticed this decline only recently since September and at this time, is very concerned that her mentation is related to her medical issues rather than dementia. I have attempted to explain that her pattern appears to be periodic delirium vs behavior disturbances arising from dementia worsening precipitated by stressors such as loss of family members, illnesses, etc and as such do not represent true encephalopathy each time. Multiple CT heads have been negative for acute pathology, blood cx is negative. She fluctuates with her mentation, being completely alert and awake at some times and at other being oriented x 1 requiring frequent orientation, which is very unusual for enecphalopathy. I have noticed increased irritability and uncooperative behavior between first admission to currently, but no other gross mental status change. Will get psychiatry consult for specialist opinion regarding dementia and how best to address changing behaviors. In the interim start zyprexa 2.5mg po BID Status: Acute (9) Rectal prolapse: Noted upon admission which was able to be reduced. Surgery evaluation as an outpatient for the same Status: Acute Additional A&P Information Hematuria: Gross hematuria was present during last admission, currently only microscopic. ASA on hold. Acute kidney injury: improved over previous admissions, current creatinine 1.2 Mild troponin elevation: Without definitive peak. Suspected secondary to demand ischemia GERD: Protonix po Hypothyroidism: TSH WNL. Resume levothyroxine HTN: Monitor blood pressures, resume home medications Depression: Duloxetine on hold for now,started on zyprexa instead Iron deficiency: Iron supplementation CODE STATUS : Full code DVT ppx: heparin DISPO: discharge to SNF when medically ready Attestations Medical Necessity Statement*: Continue hospitalization due to Klebsiella pneumoniae UTI, altered mental status Coding Level of Care Code Acute Certified Mortician for g Fwd Diagnoses Acute encephalopathy G93.40 Sepsis A41.9 Sepsis type: sepsis due to unspecified organism Sepsis acute organ dysfunction status: unspecified UTI (urinary tract infection) N39.0; R31.9 Hematuria presence: with hematuria Urinary tract infection type: site unspecified Pneumonia J18.9 Cirrhosis of liver K74.60 DM2 (diabetes mellitus, type 2) E11.9 COPD (chronic obstructive pulmonary disease) J44.9 Dementia F03.90 Rectal prolapse K62.3
[2019-12-18 12:34] LABS: Glucose Point of Care 312 mg/dL (70-110)
[2019-12-18 13:08] LABS: Ammonia 75 umol/L (11-51)
[2019-12-18 17:32] LABS: Glucose Point of Care 287 mg/dL (70-110)
[2019-12-18] MEDS: heparin 5,000 unit/mL INJ 1 mL 5000 UNIT SUBCUT (17:35)
[2019-12-18 21:05] LABS: Glucose Point of Care 385 mg/dL (70-110)
[2019-12-19] VITALS (9 sets, daily range): BP systolic 129–157; BP diastolic 62–79; PULSE 68–104; RESP 18–22; TEMP 36.8–37.1; O2SAT 94–98
[2019-12-19 05:14] LABS: Basophils % 0.2 %; Eosinophils # 0.2 10^3/uL (0.0-0.8); Eosinophils % 5.1 %; Hematocrit 27.7 % (37.0-47.0); Hemoglobin 8.2 g/dL (11.5-15.3); Lymphocytes # 2.3 10^3/uL (0.8-4.8); Lymphocytes % 48.2 %; Mean Corpuscular HGB Conc 29.6 g/dL (30.0-36.0); Mean Corpuscular Hemoglobin 29.2 pg (28.0-34.0); Mean Corpuscular Volume 98.6 fL (81-99); Mean Platelet Volume 9.4 fL (7.4-10.4); Monocytes # 0.4 10^3/uL (0.2-0.9); Monocytes % 8.3 %; Neutrophils # 1.8 10^3/uL (1.8-7.7); Nucleated Red Blood Cells % 0 %; Platelet Count 330 10^3/cmm (130-400); Red Blood Count 2.81 10^6/uL (4.1-5.3); Red Cell Distribution Width 17.7 % (12.1-15.1); White Blood Count 4.7 10^3/uL (4.0-10.0)
[2019-12-19 05:35] LABS: Alanine Aminotransferase 11 U/L (0-33); Albumin Level 2.9 g/dL (3.5-5.2); Alkaline Phosphatase 162 IU/L (35-105); Aspartate Amino Transferase 34 U/L (0-32); Blood Urea Nitrogen 22 mg/dL (8-23); Calcium 8.8 mg/dL (8.5-10.5); Carbon Dioxide 18 mmol/L (22-29); Chloride 105 mmol/L (98-107); Globulin 5.2 g/dL (1.3-4.6); Glucose 313 mg/dL (65-115); Magnesium 1.8 mg/dL (1.7-2.3); Osmolality Calculated 289 mOsm/kg (285-295); Phosphorus 3.7 mg/dL (2.5-4.5); Sodium 135 mmol/L (136-145); Total Bilirubin 0.4 mg/dL (0.15-1.2); Total Protein 8.1 g/dL (6.6-8.7)
[2019-12-19 06:12] LABS: Procalcitonin 0.13 ng/mL (0-0.5)
[2019-12-19] MEDS: heparin 5,000 unit/mL INJ 1 mL 5000 UNIT SUBCUT ×2 (06:22→17:54)
[2019-12-19] MEDS: lactulose oral liq 20 gm/30 mL UDC PO ×5 (06:22→22:08)
[2019-12-19 06:51] LABS: Glucose Point of Care 343 mg/dL (70-110)
[2019-12-19] MEDS: allopurinol 100 mg Tablet PO (08:14)
[2019-12-19] MEDS: amlodipine 5 mg Tablet PO (08:14)
[2019-12-19] MEDS: levothyroxine 150 mcg Tablet PO (08:14)
[2019-12-19] MEDS: oxybutynin chloride XL 5 MG TABLET PO (08:14)
[2019-12-19] MEDS: OLANZapine 5 mg TABLET 2.5 MG PO (08:14)
[2019-12-19] MEDS: ferrous sulfate EC 325 mg Tablet PO (08:14)
[2019-12-19] MEDS: metoprolol tartrate 25 mg Tablet 12.5 MG PO ×2 (08:14→17:49)
[2019-12-19] MEDS: pantoprazole DR 40 mg Tablet PO (08:14)
--- NOTE | 2019-12-19 09:25 | PC.SOCIAL ---
IMM Update PG. 2 of IMM updated. Initialed, dated, and timed, and placed in chart, Copy provided to patient.
--- NOTE | 2019-12-19 10:32 | MRR_ITS ---
PROCEDURE INFORMATION: Exam: MR Head Without Contrast Exam date and time: 12/19/2019 10:46 AM Age: 74 years old Clinical indication: Altered mental status/memory loss; Confusion or disorientation; Patient HX: PT aggressive and aggravated, best images possible; Additional info: AMS, R/O stroke TECHNIQUE: Imaging protocol: MR of the head without contrast. COMPARISON: CT head wo con* [id number] 12/15/2019 10:24 PM FINDINGS: Limitations: The study is moderately limited due to patient motion artifact. Brain: No restricted diffusion is seen to suggest acute infarction. There is no acute intracranial hemorrhage, cerebral edema, or midline shift. Age-related cerebral and cerebellar substance loss is present. Scattered increased T2 and FLAIR signal within the periventricular and subcortical white matter is present. This is nonspecific but likely related to chronic microangiopathic ischemic change. Ventricles: Moderate ex vacuo dilation of the lateral and third ventricles is noted. Bones/joints: Unremarkable. Sinuses: Normal as visualized. No acute sinusitis. Mastoid air cells: Normal as visualized. No mastoid effusion. Orbits: The patient is likely status post bilateral cataract surgery. Soft tissues: Unremarkable. MR/MR head wo con* [id number] IMPRESSION: 1. Moderately limited exam due to motion artifact a 2. No acute intracranial abnormality. 3. Chronic findings as discussed above.
--- NOTE | 2019-12-19 10:33 | USCV_ITS ---
Paty Melba Age: 74 Gender: F : 1945 Exam Date: 12/19/2019 10:44 Ordering Phys: Godfrey Cook MD Technologist: Harleen Medina Exam Location: [facility] [place] Indication: AMS Risk Factors: Previous Vascular Surgery: Right Brachial BP: / Left Brachial BP: / Right Left Velocity (cm/s) Spectral Plaque Velocity (cm/s) Spectral Plaque Syst/Diast Broadening Syst/Diast Broadening 110.30/11.00 Prox CCA 68.40 / 5.50 89.30/ 11.00 Mid CCA 57.30 / 13.20 76.10/ 16.50 Distal CCA 45.20 / 8.80 83.80/ 14.30 Prox ICA 71.70 / 16.50 118.00/18.70 Mid ICA 96.40 / 14.00 109.20/27.60 Distal ICA 92.30 / 17.30 99.20 ECA 125.70 1.32 ICA/CCA 1.68 Antegrade Vertebral Antegrade 44.10/ 9.90 cm/s 39.50/ 14.00 cm/s Tri Subclavian Tri 103.6 73.30 0 FINDINGS Moderate heterogeneous plaques at the bifurcations bilaterally. Intimal thickening and minimal plaques in the common carotid arteries bilaterally. Antegrade flow in the vertebral arteries bilaterally. Normal Doppler flow velocities in the external carotid arteries bilaterally CONCLUSIONS Moderate heterogeneous plaques at the bifurcations bilaterally with velocity elevation consistent with 16-49% stenosis. Intimal thickening and minimal plaques in the common carotid arteries bilaterally. No previous studies are available for comparison. . Dr Paxton Kong MD [facility] (Electronically Signed) Final Date: 20 December 2019 13:52 S
[2019-12-19 10:55] LABS: Glucose Point of Care 459 mg/dL (70-110)
[2019-12-19 11:30] LABS: Hepatitis A Antibody IgM Non-Reactive (Nonreactive); Hepatitis B Core AB, Total Non-Reactive (Nonreactive); Hepatitis B Surface AB 3.5 (0-8.5); Hepatitis B Surface Antigen Non-Reactive (Nonreactive); Hepatitis C Virus Antibody Non-Reactive (Nonreactive)
[2019-12-19 11:55] LABS: Ferritin 79 ng/mL (15-150)
--- NOTE | 2019-12-19 13:18 | P.PN_ITS ---
Subjective Subjective: Interval history: This morning patient seems much more confused, afebrile overnight, vitals within normal limits, her urine cultures have shown ESBL Klebsiella pneumonia UTI, she is on Primaxin, no significant leukocytosis, no significant procalcitonin elevation, her ammonia levels are 71. Patient this morning when asked what is her name, did not really answer, she thought for a minute or so, but was not really able to provide me an answer, which is quite concerning, is alert, does follow all commands, does not know the time, the place, does not remember her daughter's names, but denies anything being wrong, Medications: Reviewed: Yes Vitals/I&O/Wt Last Vital Signs Temp 98.3 F 12/19/19 12:00 Pulse 88 12/19/19 12:00 Resp 18 12/19/19 12:00 BP 129/71 12/19/19 12:00 Pulse Ox 96 12/19/19 11:06 12/18/19 12/19/19 12/19/19 22:59 06:59 14:59 Intake Total 400 / 860 260 / 1120 720 / 720 Balance 400 / 860 260 / 1120 720 / 720 Weight last 48 hrs Weight 83.915 kg Weight 86.319 kg Physical Exam Narrative: EXAM NARRATIVE: Alert, Const: COMMON NORMALS: no acute distress and alert GENERAL APPEARANCE: cooperative ORIENTATION/CONSCIOUSNESS: not oriented to person, not oriented to place and not oriented to time HENMT: COMMON NORMALS: normocephalic HEAD & SCALP: normocephalic Neck/C-Spine: COMMON NORMALS: no JVD Resp: COMMON NORMALS: normal respiratory effort, No retractions, No use of accessory muscles and clear to auscultation bilaterally AUSCULTATION: clear to auscultation bilaterally Cardio: COMMON NORMALS: no JVD, regular rate, regular rhythm, S1 normal heart sound present and S2 normal heart sound present RATE: regular rate RHYTHM: regular rhythm HEART SOUNDS: S1 normal heart sound present and S2 normal heart sound present GI: COMMON NORMALS: Normal to inspection, nondistended, normoactive bowel sounds present, Soft to palpation, non-tender, No hepatosplenomegaly present, no masses and no bruits PALPATION: Yes Soft to palpation and Yes No hepatosplenomegaly present Extremity: COMMON NORMALS: capillary refill normal, no clubbing, cyanosis or edema, no calf tenderness and no pedal edema Neuro: SENSORIUM/ORIENTATION: Yes alert, No oriented to person, No oriented to place, No oriented to time, No Orientation impaired, Yes somnolent and Yes fluctuating sensorium SPEECH: speech normal MOTOR EXAM: 5/5 motor strength present throughout Psych: COMMON NORMALS: mental status grossly normal Urinary Catheter Management^: Chow: Cath Placed During This Visit: yes, but has since been removed by the nurse Reason for Continuing Indwelling Catheter: Not indwelling catheter Urinary Catheter Date of Insertion: 12/15/19 Urinary Catheter Time of Insertion: 23:42 Date Urinary Catheter Removed: 12/17/19 Data : 12/19/19 04:33 12/19/19 04:33 Micro: Microbiology 12/15/19 23:27 Urine Culture - Final Urine,Clean Catch Klebsiella pneumonia esbl A&P Assessment and plan (1) Acute encephalopathy: Upon admission, patient had mild tachypnea, tachycardia with + UA therefore suepected to have sepsis with encephalopathy. On my assesment on subsequent days, she appears to be at her baseline mentation, though with noted increased irritability and combativeness in her demeanor. She was quite pleasant and cooperative on first admission in early November, and currently does not wish to enagage in extended conversation. She is otherwise alert and awake, though forgetful and requiring reorientation. My personal experience with Melba, is is that she is quite lively, she does engage in conversations, does have episodes of confusion, requires reorientation. -Again this morning she is much more confused -I reviewed her films with radiology, she does have evidence of liver cirrhosis, portal hypertension, ammonia level 71, but no ascites thus SBP unlikely, could have hepatic encephalopathy, but has been getting lactulose Plan: -We will do MRI of the brain without contrast evaluate for stroke, possible brainstem stroke, carotid ultrasound -Start rifaximin in addition to lactulose, monitor ammonia levels, neurochecks, aspiration precautions Continue Primaxin secondary to ESBL Klebsiella UTI -Continue reorientation neuro checks -We will consider doing a lumbar puncture to evaluate for meningitis, fungal EMEA Status: Acute (2) Sepsis: Met criteria with tachypnea and tachycardia upon admission. This appears to be resolved now. Status: Acute Qualifiers: Sepsis type: sepsis due to unspecified organism Sepsis acute organ dysfunction status: unspecified Qualified Code(s): A41.9 - Sepsis, unspecified organism (3) UTI (urinary tract infection): -Patient has a positive UA this admission. -She recently has history of recurrent pyelonephritis since September of this year and continues to have a positive UA. She also now has a foreign body by way of an indwelling right ureteral stent. It is likely that patient has developed a component of chronic cystitis, therefore she may have positive UAs going forward owing to inflammatory changes. In the absence of fever, flank tenderness, other symptoms of cystitis or pyelonephritis, this does not necessarily represent complicated UTI each time. However given that patient was reportedly encephalopathic at admission and has a stent in place, reasonable to continue a short course of antibiotics of 5-7 days to cover ESBL Klebsiella isolated from recent urine cultures. - CT abdomen/pelvis grossly unchanged with no hydronephrosis, steent in position - ESBL organisms in her urine are more likely to represent colonization at this time. During the first and second admissions, she received empiric treatment with ceftriaxone with clinical improvement, which suggests that GNR is currently likely to be a colonizer, with improving symptoms without directed abx therapy. - E.fecalis likely also to be GI colonizer, as such covered with primaxin, discontinue additional ampicillin. -Urine cultures from 11/29 with Raine albicans at which time she was treated. Urine cultures from 12/10 without Raine, but with ESBL Klebsiella, and enterococcus faecalis - For now hold off on additional antifungal treatment given no growth on the most recent culture. Of note, she has a h/o fungemia in September 2019, per review of her prior records, this cleared quickly, she received a course of fluconazole appropriately and has had multiple negative blood cultures since then. Most rec ent urine cx also without C. albicans. Very low suspicion for chronic fungal meningitis, which as such would be atypical for raine meningitis. -Urine culture on this admission does show ESBL Klebsiella, continue Primaxin Status: Acute Qualifiers: Hematuria presence: with hematuria Urinary tract infection type: site unspecified Qualified Code(s): N39.0 - Urinary tract infection, site not specified; R31.9 - Hematuria, unspecified (4) Pneumonia: Possible right lower lobe infiltrate- atelactasis vs pneumonia- appropriately covered with Primaxin. Status: Acute (5) Cirrhosis of liver: With possible hepatic encephalopathy, ammonia level 71. Continue lactulose, add rifaximin Status: Acute (6) DM2 (diabetes mellitus, type 2): Sliding scale insulin to continue. Levemir 5 units twice daily Status: Acute (7) COPD (chronic obstructive pulmonary disease): Not currently in exacerbation. Nebs as needed. Status: Acute (8) Dementia: I have spoken to her PCP Dr. Alexis and reviewed her prior PCP notes. She is documented to have dementia and has been recommeneded NH placement in the past. Her , who used to be her primary caregiver until earlier this year had refused in compliance with her wishes. It appears that her dementia is worsening since the passing of her usual caregivers which were her and daughter. Her other daughter Cristela, along with her has recently moved in with her since their passing of her usual caregivers and per my discussion with her, states that she was unaware of her dementia diagnosis. She has noticed this decline only recently since September and at this time, is very concerned that her mentation is related to her medical issues rather than dementia. I have attempted to explain that her pattern appears to be periodic delirium vs behavior disturbances arising from dementia worsening precipitated by stressors such as loss of family members, illnesses, etc and as such do not represent true encephalopathy each time. Multiple CT heads have been negative for acute pathology, blood cx is negative. She fluctuates with her mentation, being completely alert and awake at some times and at other being oriented x 1 requiring frequent orientation, which is very unusual for enecphalopathy. I have noticed increased irritability and uncooperative behavior between first admission to currently, but no other gross mental status change. Will get psychiatry consult for specialist opinion regarding dementia and how best to address changing behaviors. In the interim start zyprexa 2.5mg po BID Status: Acute (9) Rectal prolapse: Noted upon admission which was able to be reduced. Surgery evaluation as an outpatient for the same Status: Acute Additional A&P Information Hematuria: Gross hematuria was present during last admission, currently only microscopic. ASA on hold. Acute kidney injury: improved over previous admissions, current creatinine 1.2 Mild troponin elevation: Without definitive peak. Suspected secondary to demand ischemia GERD: Protonix po Hypothyroidism: TSH WNL. Resume levothyroxine HTN: Monitor blood pressures, resume home medications Depression: Duloxetine on hold for now, hold Zyprexa Iron deficiency: Iron supplementation CODE STATUS : Full code DVT ppx: heparin DISPO: discharge to SNF when medically ready Attestations Medical Necessity Statement*: Patient requires continued hospitalization due to acute encephalopathy Coding Level of Care Code Acute Film Tests Checker for Chg Fwd Diagnoses Acute encephalopathy G93.40 Sepsis A41.9 Sepsis type: sepsis due to unspecified organism Sepsis acute organ dysfunction status: unspecified UTI (urinary tract infection) N39.0; R31.9 Hematuria presence: with hematuria Urinary tract infection type: site unspecified Pneumonia J18.9 Cirrhosis of liver K74.60 DM2 (diabetes mellitus, type 2) E11.9 COPD (chronic obstructive pulmonary disease) J44.9 Dementia F03.90 Rectal prolapse K62.3
[2019-12-19 13:58] LABS: Ammonia 54 umol/L (11-51)
[2019-12-19] MEDS: LORazepam 2 mg/mL INJ 1 mL 0.5 MG IVP ×2 (14:33→14:57)
[2019-12-19 16:22] LABS: Glucose Point of Care 384 mg/dL (70-110)
--- NOTE | 2019-12-19 20:51 | PC.NURSE ---
NOTE Care of pt assumed at this time. 1:1 sitter is at bedside. Pt denies pain or discomfort
[2019-12-20] VITALS (11 sets, daily range): BP systolic 121–150; BP diastolic 67–75; PULSE 74–87; RESP 18–20; TEMP 36.5–37.3; O2SAT 96–100
[2019-12-20 04:56] LABS: Basophils % 0.2 %; Eosinophils # 0.3 10^3/uL (0.0-0.8); Eosinophils % 6.9 %; Hematocrit 28.8 % (37.0-47.0); Hemoglobin 8.9 g/dL (11.5-15.3); Lymphocytes # 2.4 10^3/uL (0.8-4.8); Lymphocytes % 49.6 %; Mean Corpuscular HGB Conc 30.9 g/dL (30.0-36.0); Mean Corpuscular Hemoglobin 29.3 pg (28.0-34.0); Mean Corpuscular Volume 94.7 fL (81-99); Mean Platelet Volume 9.2 fL (7.4-10.4); Monocytes # 0.4 10^3/uL (0.2-0.9); Monocytes % 8.8 %; Neutrophils # 1.7 10^3/uL (1.8-7.7); Neutrophils % 34.3 %; Nucleated Red Blood Cells % 0 %; Platelet Count 343 10^3/cmm (130-400); Red Blood Count 3.04 10^6/uL (4.1-5.3); Red Cell Distribution Width 17.2 % (12.1-15.1); White Blood Count 4.9 10^3/uL (4.0-10.0)
[2019-12-20 05:29] LABS: Ammonia 51 umol/L (11-51)
[2019-12-20 05:31] LABS: Procalcitonin 0.13 ng/mL (0-0.5)
[2019-12-20] MEDS: lactulose oral liq 20 gm/30 mL UDC PO ×3 (05:33→18:25)
[2019-12-20] MEDS: heparin 5,000 unit/mL INJ 1 mL 5000 UNIT SUBCUT ×2 (05:34→18:19)
[2019-12-20 05:39] LABS: Alanine Aminotransferase 12 U/L (0-33); Albumin Level 3.1 g/dL (3.5-5.2); Alkaline Phosphatase 177 IU/L (35-105); Anion Gap 17.7 (5-19); Aspartate Amino Transferase 31 U/L (0-32); Blood Urea Nitrogen 22 mg/dL (8-23); Calcium 9.4 mg/dL (8.5-10.5); Carbon Dioxide 18 mmol/L (22-29); Chloride 105 mmol/L (98-107); Globulin 5.5 g/dL (1.3-4.6); Glucose 163 mg/dL (65-115); Magnesium 1.9 mg/dL (1.7-2.3); Osmolality Calculated 284 mOsm/kg (285-295); Phosphorus 3.8 mg/dL (2.5-4.5); Potassium 3.7 mmol/L (3.5-5.1); Sodium 137 mmol/L (136-145); Total Bilirubin 0.6 mg/dL (0.15-1.2); Total Protein 8.6 g/dL (6.6-8.7)
--- NOTE | 2019-12-20 05:55 | PC.NURSE ---
SHIFT SUMMARY Slept last half of night well. First part of shift was quite confused and did not want anyone to bother her for anything. Wanted to argue about taking her meds and being changed for incontinence. This morning more cooperative although remains confused. Had couple of large soft BM's this shift. Has had 1:1 sitter at bedside. On contact precautions for ESBL in urine
[2019-12-20 06:46] LABS: Glucose Point of Care 224 mg/dL (70-110)
[2019-12-20] MEDS: levothyroxine 150 mcg Tablet PO (08:23)
[2019-12-20] MEDS: ferrous sulfate EC 325 mg Tablet PO (08:23)
[2019-12-20] MEDS: oxybutynin chloride XL 5 MG TABLET PO (08:23)
[2019-12-20] MEDS: amlodipine 5 mg Tablet PO (08:23)
[2019-12-20] MEDS: OLANZapine 5 mg TABLET 2.5 MG PO ×2 (08:23→18:19)
[2019-12-20] MEDS: allopurinol 100 mg Tablet PO (08:23)
[2019-12-20] MEDS: pantoprazole DR 40 mg Tablet PO (08:24)
[2019-12-20] MEDS: metoprolol tartrate 25 mg Tablet 12.5 MG PO ×2 (08:24→18:19)
[2019-12-20 11:01] LABS: Glucose Point of Care 422 mg/dL (70-110)
--- NOTE | 2019-12-20 15:05 | P.PN_ITS ---
Subjective Subjective: Interval history: Patient was reexamined multiple times yesterday afternoon, she was alert oriented x2, much more awake, answering most questions appropriately, did want to see her's , who is , they want to see her daughter, I spoke to her daughter extensively about patient's current medical condition, likely altered mental status secondary to underlying dementia and UTI,, I would highly recommend care home placement specifically memory unit, however patient's daughter declined, throughout the afternoon yesterday patient would refuse to take medications, would only take them when I was in the room Again this morning patient refused to take medications, he was alert oriented x2, after being in the room, she will take her medications, take her insulin shots, refused physical therapy, but was able to get into to a chair, had an extensive discussion with patient, I told her that she needed to go to care home for nursing home help, patient stated over my body . Patient's IV was lost, I think she pulled out her IV as she was bleeding significantly, she refused IV placement. At this point patient is refusing to take medications at times, is refusing physical therapy, has no motivation to get better, just wants to be left alone. I will have a detailed discussion with daughter again, Vitals/I&O/Wt Last Vital Signs Temp 98.3 F 12/20/19 11:31 Pulse 78 12/20/19 11:31 Resp 20 H 12/20/19 11:31 BP 150/73 12/20/19 11:31 Pulse Ox 100 12/20/19 11:08 12/20/19 12/20/19 12/20/19 06:59 14:59 22:59 Intake Total 350 / 1630 720 / 720 Balance 350 / 1630 720 / 720 Weight last 48 hrs Weight 84.822 kg Weight 83.915 kg Physical Exam Const: COMMON NORMALS: no acute distress GENERAL APPEARANCE: combative NUTRITIONAL APPEARANCE: obese ORIENTATION/CONSCIOUSNESS: Yes awake, Yes oriented to person and Yes oriented to place; not oriented to time HENMT: COMMON NORMALS: normocephalic HEAD & SCALP: normocephalic Neck/C-Spine: COMMON NORMALS: no JVD Resp: COMMON NORMALS: normal respiratory effort, No retractions, No use of accessory muscles and clear to auscultation bilaterally AUSCULTATION: clear to auscultation bilaterally Cardio: COMMON NORMALS: no JVD, regular rate, regular rhythm, S1 normal heart sound present and S2 normal heart sound present RATE: regular rate RHYTHM: regular rhythm HEART SOUNDS: S1 normal heart sound present and S2 normal heart sound present GI: COMMON NORMALS: Normal to inspection, nondistended, normoactive bowel sounds present, Soft to palpation, non-tender, No hepatosplenomegaly present, no masses and no bruits PALPATION: Yes Soft to palpation and Yes No hepatosple nomegaly present Extremity: COMMON NORMALS: capillary refill normal, no clubbing, cyanosis or edema, no calf tenderness and no pedal edema Neuro: SENSORIUM/ORIENTATION: Yes oriented to person, Yes oriented to place and No oriented to time Psych: ATTITUDE: Yes agitated THOUGHT PROCESS: disorganized and Illogical thought process present ATTENTION/CONCENTRATION: Yes concentration grossly impaired Urinary Catheter Management^: Chow: Cath Placed During This Visit: yes, but has since been removed by the nurse Reason for Continuing Indwelling Catheter: Not indwelling catheter Urinary Catheter Date of Insertion: 12/15/19 Urinary Catheter Time of Insertion: 23:42 Date Urinary Catheter Removed: 12/17/19 Data : 12/20/19 04:41 12/20/19 04:41 A&P Assessment and plan (1) Acute encephalopathy: Upon admission, patient had mild tachypnea, tachycardia with + UA therefore suepected to have sepsis with encephalopathy. On my assesment on subsequent days, she appears to be at her baseline mentation, though with noted increased irritability and combativeness in her demeanor. She was quite pleasant and cooperative on first admission in early November, and currently does not wish to enagage in extended conversation. She is otherwise alert and awake, though forgetful and requiring reorientation. My personal experience with Melba, is is that she is quite lively, she does engage in conversations, does have episodes of confusion, requires reorientation. -This morning she is about back to baseline, her ammonia levels have decreased to 51 -She refuses to take medications, she refuses IV replacement, she refuses to go to care home, refuses to work with a single physical therapy, refuses to get up out of a chair, has no motivation to get better, says send me home -I reviewed her films with radiology, she does have evidence of liver cirrhosis, portal hypertension, ammonia level 51, but no ascites thus SBP unlikely, hepatic encephalopathy likely has resolved with lactulose and rifaximin -MRI of the brain did not show any acute stroke, carotid ultrasound showed moderate heterogeneous plaques at the bifurcations bilaterally with velocity elevation consistent with 16 to 49% stenosis Plan: -Switch to oral Levaquin -Start rifaximin in addition to lactulose, monitor ammonia levels, neurochecks, aspiration precautions -Continue reorientation neuro checks -We will have a discussion with patient and daughter in regards to disposition, patient is adamant about going home, and patient's daughter wants to take her home, but patient is quite forgetful at times, refuses to take medications, refuses to follow instructions, likely needs a memory care unit Status: Acute (2) Sepsis: Met criteria with tachypnea and tachycardia upon admission. This appears to be resolved now. Status: Acute Qualifiers: Sepsis type: sepsis due to unspecified organism Sepsis acute organ dysfunction status: unspecified Qualified Code(s): A41.9 - Sepsis, unspecified organism (3) UTI (urinary tract infection): -Patient has a positive UA this admission. -She recently has history of recurrent pyelonephritis since September of this year and continues to have a positive UA. She also now has a foreign body by way of an indwelling right ureteral stent. It is likely that patient has developed a component of chronic cystitis, therefore she may have positive UAs going forward owing to inflammatory changes. In the absence of fever, flank tenderness, other symptoms of cystitis or pyelonephritis, this does not necessarily represent complicated UTI each time. However given that patient was reportedly encephalopathic at admission and has a stent in place, reasonable to continue a short course of antibiotics of 5-7 days to cover ESBL Klebsiella isolated from recent urine cultures. - CT abdomen/pelvis grossly unchanged with no hydronephrosis, steent in position - ESBL organisms in her urine are more likely to represent colonization at this time. During the first and second admissions, she received empiric treatment with ceftriaxone with clinical improvement, which suggests that GNR is currently likely to be a colonizer, with improving symptoms without directed abx therapy. - E.fecalis likely also to be GI colonizer, as such covered with primaxin, discontinue additional ampicillin. -Urine cultures from 11/29 with Raine albicans at which time she was treated. Urine cultures from 12/10 without Raine, but with ESBL Klebsiella, and enterococcus faecalis - For now hold off on additional antifungal treatment given no growth on the most recent culture. Of note, she has a h/o fungemia in September 2019, per review of her prior records, this cleared quickly, she received a course of fluconazole appropriately and has had multiple negative blood cultures since then. Most recent urine cx also without C. albicans. Very low suspicion for chronic fungal meningitis, which as such would be atypical for raine meningitis. -Urine culture on this admission does show ESBL Klebsiella, switch to oral Lev aquin Status: Acute Qualifiers: Hematuria presence: with hematuria Urinary tract infection type: site unspecified Qualified Code(s): N39.0 - Urinary tract infection, site not specified; R31.9 - Hematuria, unspecified (4) Pneumonia: Possible right lower lobe infiltrate- atelactasis vs pneumonia- appropriately covered with Levaquin Status: Acute (5) Cirrhosis of liver: With possible hepatic encephalopathy, ammonia level 51. Continue lactulose, add rifaximin Status: Acute (6) DM2 (diabetes mellitus, type 2): Sliding scale insulin to continue. Levemir 10 units twice daily Status: Acute (7) COPD (chronic obstructive pulmonary disease): Not currently in exacerbation. Nebs as needed. Status: Acute (8) Dementia: I have spoken to her PCP Dr. Alexis and reviewed her prior PCP notes. She is documented to have dementia and has been recommeneded NH placement in the past. Her , who used to be her primary caregiver until earlier this year had refused in compliance with her wishes. It appears that her dementia is worsening since the passing of her usual caregivers which were her and daughter. Her other daughter Cristela, along with her has recently moved in with her since their passing of her usual caregivers and per my discussion with her, states that she was unaware of her dementia diagnosis. She has noticed this decline only recently since September and at this time, is very concerned that her mentation is related to her medical issues rather than dementia. I have attempted to explain that her pattern appears to be periodic delirium vs behavior disturbances arising from dementia worsening precipitated by stressors such as loss of family members, illnesses, etc and as such do not represent true encephalopathy each time. Multiple CT heads have been negative for acute pathology, blood cx is negative. She fluctuates with her mentation, being completely alert and awake at some times and at other being oriented x 1 requiring frequent orientation, which is very unusual for enecphalopathy. I have noticed increased irritability and uncooperative behavior between first admission to currently, but no other gross mental status change. Will get psychiatry consult for specialist opinion regarding dementia and how best to address changing behaviors. In the interim start zyprexa 2.5mg po BID Status: Acute (9) Rectal prolapse: Noted upon admission which was able to be reduced. Surgery evaluation as an outpatient for the same Status: Acute Additional A&P Information Hematuria: Gross hematuria was present during last admission, currently only microscopic. ASA on hold. Acute kidney injury: improved over previous admissions, current creatinine 1.3 Mild troponin elevation: Without definitive peak. Suspected secondary to demand ischemia GERD: Protonix po Hypothyroidism: TSH WNL. Resume levothyroxine HTN: Monitor blood pressures, resume home medications Depression: Duloxetine on hold for now, hold Zyprexa Iron deficiency: Iron supplementation CODE STATUS : Full code DVT ppx: heparin DISPO: discharge to SNF when medically ready Attestations Medical Necessity Statement*: Patient requires continued hospitalization due to UTI, altered mental status Coding Level of Care Code Acute Leaflet Or Newspaper Deliverer for g Fwd Diagnoses Acute encephalopathy G93.40 Sepsis A41.9 Sepsis type: sepsis due to unspecified organism Sepsis acute organ dysfunction status: unspecified UTI (urinary tract infection) N39.0; R31.9 Hematuria presence: with hematuria Urinary tract infection type: site unspecified Pneumonia J18.9 Cirrhosis of liver K74.60 DM2 (diabetes mellitus, type 2) E11.9 COPD (chronic obstructive pulmonary disease) J44.9 Dementia F03.90 Rectal prolapse K62.3
--- NOTE | 2019-12-20 15:32 | PC.OT ---
OT note: Pt declined OT at this time. Will attempt again later.
[2019-12-20 16:59] LABS: Glucose Point of Care 327 mg/dL (70-110)
[2019-12-20 21:33] LABS: Glucose Point of Care 373 mg/dL (70-110)
--- NOTE | 2019-12-20 23:48 | PC.NURSE ---
Patient refused all medication including insulin this evening. This nurse educated patient on the importance in taking insulin to control blood glucose levels. After attempting to administer medications the first time, this nurse waited thirty minutes and attempted to administer medications again. Patient refused for a second time stating I don't want anything at all
[2019-12-21 03:47] VITALS: BP 127/71; PULSE 77; RESP 20; TEMP 36.9; O2SAT 97
[2019-12-21 05:05] LABS: Basophils % 0.4 %; Eosinophils # 0.3 10^3/uL (0.0-0.8); Eosinophils % 5.9 %; Hemoglobin 8.7 g/dL (11.5-15.3); Lymphocytes # 1.9 10^3/uL (0.8-4.8); Lymphocytes % 40.2 %; Mean Corpuscular Hemoglobin 28.2 pg (28.0-34.0); Mean Corpuscular Volume 94.2 fL (81-99); Mean Platelet Volume 9.4 fL (7.4-10.4); Monocytes # 0.5 10^3/uL (0.2-0.9); Monocytes % 9.5 %; Neutrophils # 2.1 10^3/uL (1.8-7.7); Neutrophils % 43.8 %; Nucleated Red Blood Cells % 0 %; Platelet Count 370 10^3/cmm (130-400); Red Blood Count 3.08 10^6/uL (4.1-5.3); Red Cell Distribution Width 17.6 % (12.1-15.1); White Blood Count 4.7 10^3/uL (4.0-10.0)
[2019-12-21 05:11] LABS: Ammonia 37 umol/L (11-51)
[2019-12-21 05:40] LABS: Procalcitonin 0.15 ng/mL (0-0.5)
[2019-12-21] MEDS: lactulose oral liq 20 gm/30 mL UDC PO (05:47)
[2019-12-21] MEDS: levoFLOXacin 750 mg Tablet PO (05:47)
[2019-12-21] MEDS: heparin 5,000 unit/mL INJ 1 mL 5000 UNIT SUBCUT (05:48)
[2019-12-21 06:09] LABS: Glucose Point of Care 384 mg/dL (70-110)
[2019-12-21 06:47] LABS: Alanine Aminotransferase 14 U/L (0-33); Albumin Level 3.3 g/dL (3.5-5.2); Alkaline Phosphatase 192 IU/L (35-105); Anion Gap 21.2 (5-19); Aspartate Amino Transferase 33 U/L (0-32); Blood Urea Nitrogen 24 mg/dL (8-23); Calcium 9.6 mg/dL (8.5-10.5); Carbon Dioxide 18 mmol/L (22-29); Chloride 97 mmol/L (98-107); Globulin 5.9 g/dL (1.3-4.6); Glucose 405 mg/dL (65-115); Magnesium 2.1 mg/dL (1.7-2.3); Osmolality Calculated 288 mOsm/kg (285-295); Potassium 4.2 mmol/L (3.5-5.1); Sodium 132 mmol/L (136-145); Total Bilirubin 0.5 mg/dL (0.15-1.2); Total Protein 9.2 g/dL (6.6-8.7)
[2019-12-21 08:00] VITALS: BP 119/78; PULSE 91; RESP 16; TEMP 36.9; O2SAT 98
[2019-12-21] MEDS: duloxetine 30 mg Capsule 60 MG PO (08:13)
[2019-12-21] MEDS: gabapentin 400 mg Capsule 800 MG PO (08:13)
[2019-12-21] MEDS: ferrous sulfate EC 325 mg Tablet PO (08:14)
[2019-12-21] MEDS: pantoprazole DR 40 mg Tablet PO (08:14)
[2019-12-21] MEDS: allopurinol 100 mg Tablet PO (08:14)
[2019-12-21] MEDS: spironolactone 25 mg Tablet PO (08:15)
[2019-12-21] MEDS: OLANZapine 5 mg TABLET 2.5 MG PO (08:15)
[2019-12-21] MEDS: aspirin 81 mg EC Tablet PO (08:15)
[2019-12-21] MEDS: levothyroxine 150 mcg Tablet PO (08:15)
[2019-12-21] MEDS: oxybutynin chloride XL 5 MG TABLET PO (08:15)
[2019-12-21] MEDS: metoprolol tartrate 25 mg Tablet 12.5 MG PO (08:15)
[2019-12-21] MEDS: amlodipine 5 mg Tablet PO (08:15)
--- NOTE | 2019-12-21 09:45 | PC.SOCIAL ---
IMM Update Pg 2 of IMM given and explained to patient, who verbalized understanding. Initialed, dated, and timed and placed in chart. Copy provided to patient.
--- NOTE | 2019-12-21 10:34 | PC.CHAP ---
Pastoral Care Encounter/Spiritual Assessment Type of Contact [x] Declined contact center professional visit [] Patient/Family/Request visit [] Outpatient visit [] Follow-up visit [] Physician referral [] Code/Alert [] Routine visit [] Staff referral [] Actively dying [] Patient sleeping [] Family support [] [] Out of room [] Palliative care [] [] Receiving care in room [] Pre-surgical visit [] Trauma [] Long length of stay [] ICU visit [] Other: Relational/Emotional Strength [] Patient feels connected with others/family/visitors/staff [] Distress [] Loneliness/isolation [] Abandonment Spirituality of Patient [] Person of Rhea [] Attends Quaker of their Rhea [] Believes in Prayer [] Reads Bible or Evangelical materials [] There are Spiritual issues to be addressed Route Sales Person Interventions [] Prayer [] Active listening [] Non-anxious presence [] Spiritual/emotional support [] Crisis/trauma care [] Spiritual counseling [] Bereavement support [] Provided bereavement packet [] Provided Bible/devotional materials [] Provided toy/stuffed animal, coloring book to patient or family member [] Provided Communion [] Anointing/[place] [] Salvation [] Completed spiritual assessment [] Other: Impact on Illness or Injury [] Angry [] Fearful [] Anxious [] Often cries [] Exhaustion [] Unable to work [] Unable to attend catholic [] Unable to walk/stand [] Unable to read [] Unable to drive [] Unable to eat/drink [] Unable to sleep [] Unable to be with family [] Patient intubated [] Other: Summary Time spent with patient
--- NOTE | 2019-12-21 10:58 | P.DS_ITS ---
Discharge Providers Date of Admission: 12/16/19 00:42 Date of Discharge: December 21, 2019 Attending Provider at Admission: Germán Peters Attending Provider at Discharge: Godfrey Cook MD Primary Care Provider: Pilo Alexis MD Diagnoses at Discharge Discharge Diagnosis (1) Acute encephalopathy: Status: Acute (2) Sepsis: Status: Acute Qualifiers: Sepsis type: sepsis due to unspecified organism Sepsis acute organ dysfunction status: unspecified Qualified Code(s): A41.9 - Sepsis, unspecified organism (3) UTI (urinary tract infection): Status: Acute Qualifiers: Hematuria presence: with hematuria Urinary tract infection type: site unspecified Qualified Code(s): N39.0 - Urinary tract infection, site not specified; R31.9 - Hematuria, unspecified (4) Pneumonia: Status: Acute (5) Cirrhosis of liver: Status: Acute (6) DM2 (diabetes mellitus, type 2): Status: Acute (7) COPD (chronic obstructive pulmonary disease): Status: Acute (8) Dementia: Status: Acute (9) Rectal prolapse: Status: Acute Reason for Visit Reason for Visit: [facility] Hospital Course Discharge Summary: This is a 74-year-old female with a past medical history of recent obstructive pyelonephritis with sepsis seen by urology, history of right ureteral stent placement, insulin-dependent type 2 diabetes mellitus, history of liver cirrhosis, COPD, fibromyalgia, GERD, hypertension, dementia, who presents [facility] due to altered mental status. Patient was admitted to [facility] for altered mental status. The etiology of patient's acute encephalopathy is likely multifactorial secondary to dementia with underlying behavioral disturbance, Klebsiella ESBL UTI, hepatic encephalopathy secondary to liver cirrhosis. For her Klebsiella ESBL UTI, patient received Primaxin as inpatient, CT scan of the abdomen showed that it was nonobstructive, stent remain patent, blood cultures within normal limits, remained afebrile, normotensive, due to patient's combativeness at times, she was uncooperative at times, and noncompliance at ti mes, she removed her IV, refused replacement of IV. She was changed to Levaquin, discharged on 7 remaining days of Levaquin. Patient is also to follow-up with Dr. Cardoso as scheduled. For patient's hepatic encephalopathy, I reviewed patient's films with radiology, she has evidence of liver cirrhosis, portal hypertension, splenic varices, her ammonia levels remain in the 70s, compliance with lactulose was difficult as above. So she was continued on lactulose with rifaximin, her ammonia levels trended down to 50, her mentation improved back to baseline, she was discharged on lactulose and rifaximin. Also patient should follow-up with Dr. Alexis, for referral to director of business systems for liver cirrhosis, consideration of liver biopsy. The etiology of liver cirrhosis is likely secondary to Enrique, but per my knowledge she has not had a liver biopsy. After several days of antibiotics, rifaximin, lactulose, IV fluids patient's mentation improved. But what persisted would be episodes of confusion, episodes of agitation, episodes of combativeness, episodes of noncompliance with medical therapy (such as refusing medications, refusing insulin, refusing IV), long-term memory loss such as thinking her was still alive, with evidence of short-term memory loss (I had to repeat instructions to patient's multiple times), evidence of inability to carry out complex tasks. I believe that likely patient has underlying dementia, associated with behavioral disturbance. She is undergone exhaustive work-up, including an MRI of her brain which showed no acute infarction, no significant carotid artery stenosis, EF of 55%, grade 2 out of 4 diastolic dysfunction. I did speak to patient and daughter about doing a lumbar puncture to rule out meningitis, although I think it is fairly unlikely, they declined. I spoke to patient's daughter, who says her mother is like this, she refuses to take her medications at times, she has memory loss, this is her behavior. I strongly advised to the patient and daughter that patient should be placed at least at a [facility], and or the best place for her would be a memory unit as I feel that her dementia will likely worsen over time vic ecially her behavioral disturbances. However patient and daughter adamantly refused. I advised daughter and patient that she will be readmitted for altered mental status again, undergo an exhaustive work-up again, and likely we will do this process again until they heed our medical advice. Patient was discharged home, to the care of her daughter, patient needs to follow-up with Dr. Carbajal as outpatient for neurocognitive testing. Physical Exam Const: COMMON NORMALS: no acute distress and alert GENERAL APPEARANCE: anxious ORIENTATION/CONSCIOUSNESS: Yes awake, Yes oriented to person and Yes oriented to place; not oriented to time HENMT: COMMON NORMALS: normocephalic HEAD & SCALP: normocephalic Neck/C-Spine: COMMON NORMALS: no JVD Resp: COMMON NORMALS: normal respiratory effort, No retractions, No use of accessory muscles and clear to auscultation bilaterally AUSCULTATION: clear to auscultation bilaterally Cardio: COMMON NORMALS: no JVD, regular rate, regular rhythm, S1 normal heart sound present and S2 normal heart sound present RATE: regular rate RHYTHM: regular rhythm HEART SOUNDS: S1 normal heart sound present and S2 normal heart sound present GI: COMMON NORMALS: Normal to inspection, nondistended, normoactive bowel sounds present, Soft to palpation, non-tender, No hepatosplenomegaly present, no masses and no bruits PALPATION: Yes Soft to palpation and Yes No hepatosplenomegaly present Extremity: COMMON NORMALS: capillary refill normal, no clubbing, cyanosis or edema, no calf tenderness and no pedal edema Neuro: SENSORIUM/ORIENTATION: Yes alert, Yes oriented to person, Yes oriented to place and No oriented to time Psych: ATTITUDE: Yes uncooperative and Yes agitated Urinary Catheter Management^: Chow: Cath Placed During This Visit: yes, but has since been removed by the nurse Reason for Continuing Indwelling Catheter: Not indwelling catheter Urinary Catheter Date of Insertion: 12/15/19 Urinary Catheter Time of Insertion: 23:42 Date Urinary Catheter Removed: 12/17/19 Discharge Data Data Completed and Pending: Completed Studies During Hospitalization Category Date Time Status CT head wo con* 7 0450 Stat Cat Scan 12/15/19 21:[address] kidney stone 7 9116 Urgent Cat Scan 12/15/19 21:56 Completed XR chest 1V sarina ble 10506 Stat Exams 12/15/19 21:43 Completed MR head wo con* 7 0551 Stat MRI 12/19/19 10:32 Completed CV carotid duplex BI* [id number] Routine Ultrasound 12/19/19 10:33 Completed US abdomen limite d 49883 Routine Ultrasound 12/16/19 02:36 Completed Pending at discharge Category Date Time Status HIV 1&2 Antigen & Antibody Routine Lab 12/19/19 04:33 Received Labs from last 24 hours 12/21/19 12/21/19 12/21/19 06:05 04:19 04:19 WBC RBC Hgb Hct MCV MCH MCHC RDW Plt Count MPV Neut % (Auto) Lymph % (Auto) Mckenzie % (Auto) Eos % (Auto) Baso % (Auto) Neut # (Auto) Lymph # (Auto) Mckenzie # (Auto) Eos # (Auto) Baso # (Auto) Nucleated RBC % (a uto) Nucleated RBCs # Sodium Potassium Chloride Carbon Dioxide Anion Gap BUN Creatinine Glucose POC Glucose 384 Calculated Osmolal ity Calcium Phosphorus Magnesium Total Bilirubin AST ALT Alkaline Phosphata se Ammonia 37 Total Protein Albumin Globulin Procalcitonin 0.15 12/21/19 12/21/19 12/20/19 04:19 04:19 20:49 WBC 4.7 RBC 3.08 L Hgb 8.7 L Hct 29.0 L MCV 94.2 MCH 28.2 MCHC 30.0 RDW 17.6 H Plt Count 370 MPV 9.4 Neut % (Auto) 43.8 Lymph % (Auto) 40.2 Mckenzie % (Auto) 9.5 Eos % (Auto) 5.9 Baso % (Auto) 0.4 Neut # (Auto) 2.1 Lymph # (Auto) 1.9 Mckenzie # (Auto) 0.5 Eos # (Auto) 0.3 Baso # (Auto) 0.0 Nucleated RBC % (a uto) 0 Nucleated RBCs # 0.0 Sodium 132 L Potassium 4.2 Chloride 97 L Carbon Dioxide 18 L Anion Gap 21.2 H BUN 24 H Creatinine 1.6 H Glucose 405 H POC Glucose 373 Calculated Osmolal ity 288 Calcium 9.6 Phosphorus 4.0 Magnesium 2.1 Total Bilirubin 0.5 AST 33 H ALT 14 Alkaline Phosphata se 192 H Ammonia Total Protein 9.2 H Albumin 3.3 L Globulin 5.9 H Procalcitonin 12/20/19 12/20/19 16:54 10:56 WBC RBC Hgb Hct MCV MCH MCHC RDW Plt Count MPV Neut % (Auto) Lymph % (Auto) Mckenzie % (Auto) Eos % (Auto) Baso % (Auto) Neut # (Auto) Lymph # (Auto) Mckenzie # (Auto) Eos # (Auto) Baso # (Auto) Nucleated RBC % (a uto) Nucleated RBCs # Sodium Potassium Chloride Carbon Dioxide Anion Gap BUN Creatinine Glucose POC Glucose 327 422 Calculated Osmolal ity Calcium Phosphorus Magnesium Total Bilirubin AST ALT Alkaline Phosphata se Ammonia Total Protein Albumin Globulin Procalcitonin Vitals: Last Vital Signs Temp 98.5 F 12/21/19 08:00 Pulse 91 12/21/19 08:00 Resp 16 12/21/19 08:00 BP 119/78 12/21/19 08:00 Pulse Ox 98 12/21/19 08:00 Discharge Plan Discharge Patient Disposition: Home, Self-Care Condition: Stable Prescriptions: New Xifaxan 550 mg Tablet 550 mg PO BID 10 Days Qty: 20 RF: 0 olanzapine 5 mg Tablet 2.5 mg PO BID 30 Days Qty: 30 RF: 0 levofloxacin 750 mg Tablet 750 mg PO DAILY@0600 6 Days Qty: 6 RF: 0 lactulose 20 gram/30 mL Solution 20 g PO Q6H Qty: 3000 RF: 0 duloxetine 30 mg Capsule,Delayed Release(Dr/Ec) 60 mg PO DAILY 30 Days RF: 0 Continued ferrous sulfate 325 mg (65 mg iron) tablet 325 mg PO DAILY Qty: 30 RF: 3 (DME) pen needle, diabetic [Pen Needle] 31 gauge x 5/16 needle See Rx Instructions .ROUTE .MEDSUPPLY Qty: 100 RF: 12 omeprazole 20 mg capsule,delayed release(DR/EC) 20 mg PO DAILY Qty: 30 RF: 3 Victoza 3-Porter 0.6 mg/0.1 mL (18 mg/3 mL) pen injector 1.8 mg SUBCUT Q24H Qty: 9 RF: 3 levothyroxine 150 mcg capsule 150 mcg PO DAILY Qty: 30 RF: 3 metoprolol tartrate [Lopressor] 50 mg tablet 12.5 mg PO BID Qty: 60 RF: 3 albuterol sulfate [ProAir HFA] 90 mcg/actuation HFA aerosol inhaler 2 puff INHALATION Q6H PRN (Reason: shortness of breath) Qty: 8.5 RF: 3 allopurinol 100 mg tablet 100 mg PO DAILY Qty: 30 RF: 3 aspirin [Adult Aspirin Regimen] 81 mg tablet,delayed release (DR/EC) 81 mg PO DAILY RF: 0 Hold Instructions: Resume on 12/20/19. resume ONLY IF NO FURTHER BLEEDING IN URINE insulin lispro [Humalog KwikPen Insulin] 100 unit/mL insulin pen See Rx Instructions .ROUTE .COMPLEX RF: 0 amlodipine 5 mg Tablet 5 mg PO DAILY 30 Days Qty: 30 RF: 0 spironolactone 25 mg tablet 25 mg PO DAILY RF: 0 gabapentin 800 mg tablet 800 mg PO TID RF: 0 oxybutynin chloride 5 mg Tablet Extended Release 24hr 5 mg PO DAILY RF: 0 aspirin 81 mg tablet,delayed release (DR/EC) DAILY RF: 0 Changed Lantus U-100 Insulin 100 unit/mL solution 10 unit SUBCUT BID Qty: 0 RF: 0 Discontinued duloxetine 30 mg capsule,delayed release(DR/EC) See Rx Instructions .ROUTE .COMPLEX RF: 0 ciprofloxacin HCl [Cipro] 500 mg tablet 500 mg PO BID 3 Days Qty: 6 RF: 0 Discharge Orders: Discharge Order (Routine); Ordered 12/21/19 Ordered By: Godfrey Cook Other Ambulatory Orders: Complete Blood Count w/Auto (Routine) Timeframe: 1 Week Location: Determined by Patient Ordered By: Godfrey Cook Comprehensive Metabolic Panel (Routine) Timeframe: 1 Week Facility: [facility] - Location: Lab - Main Lab Ordered By: Godfrey Cook Referrals: Jayda Carbajal MD [Physician] - 1 month Pilo Alexis MD [Primary Care Provider] - 1 week (You have an appointment on December 27 at 2:[address] Alexis Internal Medicine.) Discharge Diet: Cardiac Discharge Activity: Resume usual activity Patient Instructions: Urinary Tract Infection in Women (GEN), Dementia (GEN), Hepatic Encephalopathy (DC) Activity Restrictions/Additional Instructions: -Please follow-up with primary care provider, about referral to director of business systems for hepatic encephalopathy and liver cirrhosis -I have decreased insulin dose, Lantus 10 units twice daily, in addition to insulin sliding scale, if blood sugars are greater than 300 please call primary care for up titration of Lantus dose -Please use lactulose and Xifaxan as prescribed for hepatic encephalopathy -For dementia please follow-up with Dr. Carbajal Discharge Attestations Time Spent in Discharge Care*: less than 30 min Quality Metrics Clinical Quality Measures During this hospital stay, did patient experience: None Coding Level of Care Code Acute Director Enterprise Sales for g Fwd Diagnoses Acute encephalopathy G93.40 Sepsis A41.9 Sepsis type: sepsis due to unspecified organism Sepsis acute organ dysfunction status: unspecified UTI (urinary tract infection) N39.0; R31.9 Hematuria presence: with hematuria Urinary tract infection type: site unspecified Pneumonia J18.9 Cirrhosis of liver K74.60 DM2 (diabetes mellitus, type 2) E11.9 COPD (chronic obstructive pulmonary disease) J44.9 Dementia F03.90 Rectal prolapse K62.3
[2019-12-21 11:27] LABS: Glucose Point of Care 435 mg/dL (70-110)
[2019-12-21 12:00] VITALS: BP 99/63; PULSE 82; RESP 20; TEMP 36.8; O2SAT 100
[2019-12-21 14:57] VITALS: BP 99/63; PULSE 82; RESP 20; TEMP 36.8; O2SAT 100
--- NOTE | 2019-12-21 17:14 | PC.SOCIAL ---
[facility] called and initially prescription written for 10 days 20 tabs of Xifaxan. They can not separate a bottle of 60 due to costs and how generally prescribed and it will need a PA for approval. Voalte messaged Dr Cook he was agreeable to the 30 day supply 60 tabs and to take 1 tab BID. Called him to confirm order verbally and reread back. He was agreeable. PA initiated and approved. Will notify Michelle at [facility] of outcome and to run script for 30 day supply as mentioned above as well as patient tomorrow am. Pharmacy is now closed.
--- NOTE | 2019-12-22 08:33 | PC.SOCIAL ---
updated Karly at [facility] regarding approval for Xifaxan. Also called Daughter Cristela and updated her on the change and extended length of time for the Xifaxan medication. She verbalized understanding.
[2019-12-22 12:16] LABS: HIV 1 & 2 Antibody Non-Reactive (Non-Reactiv); HIV 1 & 2 Antigen Non-Reactive (Non-Reactiv)
== END 2019-12-21 14:58 | disposition home or self-care (01) | DRG 871 ==
LOC: ER 22:07 → ICU 12-16 00:54 → MEDSURG 12-17 12:08
PROVIDERS: Emergency Medicine; Student in an Organized Health Care Education/Training Program; Admitting Provider Internal Medicine; PCP Internal Medicine; Visit Provider Family Medicine
DX: A41.9 Sepsis, unspecified organism (principal); J18.9 Pneumonia, unspecified organism; N39.0 Urinary tract infection, site not specified; N17.9 Acute kidney failure, unspecified; J44.0 Chronic obstructive pulmonary disease with (acute) lower respiratory infection; K62.3 Rectal prolapse; K74.60 Unspecified cirrhosis of liver; I86.8 Varicose veins of other specified sites; R91.8 Other nonspecific abnormal finding of lung field; R31.9 Hematuria, unspecified; Z96.0 Presence of urogenital implants; K59.00 Constipation, unspecified; K72.90 Hepatic failure, unspecified without coma; E11.9 Type 2 diabetes mellitus without complications; F03.90 Unspecified dementia, unspecified severity, without behavioral disturbance, psychotic disturbance, mood disturbance, and anxiety; M79.7 Fibromyalgia; K21.9 Gastro-esophageal reflux disease without esophagitis; I10 Essential (primary) hypertension; B96.1 Klebsiella pneumoniae [K. pneumoniae] as the cause of diseases classified elsewhere; D50.9 Iron deficiency anemia, unspecified; Z79.82 Long term (current) use of aspirin; Z79.4 Long term (current) use of insulin
CPT/HCPCS: 12345; 36415; 36416; 36600; 51702; 70450; 70551; 71045; 74176; 76705; 80053; 80307; 81001; 82140; 82728; 82803; 82962; 83605; 83690; 83735; 84100; 84145; 84443; 84484; 85025; 85610; 86705; 86706; 86709; 86803; 87040; 87077; 87086; 87186; 87340; 87806; 92523; 92610; 93005; 93880; 96372; 96375; 97166; 97530; 97535; 99283; 99284; C9113; J0290; J0696; J0743; J1644; J1815 ×2; J2060; J3490; J7030; J7050

== ENCOUNTER → 2019-12-28 11:19 | Outpatient (BNVA) | payer MEDICARE, MEDICAID, SELFPAY | PROVIDERS: PCP Internal Medicine; Visit Provider Urology | DX: N11.1 Chronic obstructive pyelonephritis (principal); N30.90 Cystitis, unspecified without hematuria; Z96.0 Presence of urogenital implants | CPT/HCPCS: 80053; 81001; 85025 ==

== ENCOUNTER 2020-01-04 10:35 | Day surgery (SDC) | payer MEDICARE, MEDICAID, SELFPAY ==
--- NOTE | 2020-01-04 | SCC_ITS ---
Procedure Done: 1. Cystoscopy with removal of right ureteral stent 2. Right flexible ureterorenoscopy, laser lithotripsy of material in multiple right calyces 3. No stent 8.5 seconds of fluoroscopic guidance, for a cumulative dose of 2.86 mGy, was provided to Dr. Cardoso by the radiology department. C-arm images of the abdomen were saved for the patient's permanent record. [facility]
--- NOTE | 2020-01-04 10:56 | SC_ITS ---
WS: [id number] C-ARM RADIOGRAPHS ABDOMEN; IMAGES HISTORY: Ureteroscopy COMPARISON: None available. Intraoperative imaging during RIGHT ureteroscopy. ND/C-arm FL for Urology IMPRESSION: Intraoperative imaging during RIGHT ureteroscopy.
[2020-01-04 11:03] VITALS: BMI 34.3
[2020-01-04 11:25] LABS: Glucose Point of Care 368 mg/dL (70-110)
[2020-01-04 11:40] VITALS: BP 142/62; PULSE 80; RESP 20; TEMP 36.9; O2SAT 98
[2020-01-04] MEDS: ipratropium-albuterol 3 mL Neb INHALATION (11:42)
--- NOTE | 2020-01-04 11:42 | P.ANESASSM_ITS ---
Pre-Anesthetic Assessment Pre-Anesthetic Assessment: Height/Weight: Height 1.63 m Weight 90.718 kg Preop Diagnosis: History obstructive pyelonephritis status post emergency stenting Proposed Procedure: Operation Date: 01/04/20 14:30 Proposed Procedures p Cystoscopy/59397 N11.1(Not Applicable) - MD kendell Radford Ureteral Stent Exchange(Right) - MD kendell Radford Flexible Ureteroscopy(Not Applicable) - Luis Cardoso MD Last intake: Intake Last Liquid Date 01/03/20 Last Liquid Time 15:00 Last Solid Date 01/03/20 Last Solid Time 15:00 Social: Social History: No alcohol and No tobacco Exam: Pre-Anes Outpt Exam: alert (wakes to voice) and regular rate & rhythm Additional Exam Findings (including area of procedure): bilat wheezes Airway: Submandibular: WNL and Other (small) Cervical ROM: WNL MP: 3 Dentition: False (upper and lower) History/ROS: No significant history except as noted Pulmonary: Pulmonary: COPD and JOSE CV/HEM: CV/HEM: HTN : : UTI Hepatic: Comments: Cirrhosis GI: GI: GERD Metabolic: Metabolic: DM, Hyperlipidemia, Morbid obesity and Thyroid Musc/skel: Musc/skel: OA/DJD and Weakness (gen) Neuropsych: Neuropsych: Dementia Anesthetic Plan: ASA status: 4 Anesthesia: Anesthesia Evaluation, General and MAC Risk of > 500 ml blood loss (7ml/kg in children): No PFSH Anesthesia PFSH: Medical History (Updated 12/28/19 @ 16:59 by Luis Cardoso MD) Cirrhosis of liver COPD (chronic obstructive pulmonary disease) Dementia without behavioral disturbance Diabetes mellitus Fibromyalgia Frailty GERD (gastroesophageal reflux disease) Hypertension Obstructive pyelonephritis Recurrent UTI Retained ureteral stent Surgical History H/O eye surgery S/P cataract extraction S/P cholecystectomy Status post carpal tunnel release of both wrists Family History Other Cancer Diabetes Heart disease Social History Smoking and tobacco status: never smoked Alcohol intake: never Marital status: / Current occupational status: retired History of recent travel: No Current gender identity: Female Data Anesthesia Other Labs: Laboratory Results - last 48 hr 01/04/20 11:22 POC Glucose 368 Cardiac Studies: 2 No Data to Display
[2020-01-04 11:44] VITALS: PULSE 78; RESP 18; O2SAT 98
[2020-01-04] MEDS: sodium chloride 0.9% 1,000 ML 30 ML IV (11:44)
[2020-01-04 11:53] VITALS: PULSE 85
[2020-01-04] MEDS: insulin regular-human 100 units/1 mL 10 UNIT IVP ×2 (12:14→13:48)
[2020-01-04 13:30] LABS: Glucose Point of Care 335 mg/dL (70-110)
--- NOTE | 2020-01-04 13:47 | W.PM.OPSUD ---
Surgery/Procedure H&P Update DATE OF PROCEDURE: January 04, 2020 DATE H&P PERFORMED: 12/28/19 H&P UPDATE INFORMATION: I have reviewed H&P completed within last 30 days, I have examined patient prior to procedure, No changes to prior documentation and H&P is in [facility] EMR on date indicated PREOP DIAGNOSIS: History obstructive pyelonephritis status post emergency stenting PLANNED PROCEDURE: Operation Date: 01/04/20 14:30 Proposed Procedures p Cystoscopy/69117 N11.1(Not Applicable) - Luis Cardoso MD s Ureteral Stent Exchange(Right) - Luis Cardoso MD s Flexible Ureteroscopy(Not Applicable) - Luis Cardoso MD
--- NOTE | 2020-01-04 13:49 | P.OP_ITS ---
Operative Report Date of procedure: January 04, 2020 Pre-op Diagnosis: History obstructive pyelonephritis status post emergency stenting Post-op diagnosis: same Procedure Done: 1. Cystoscopy with removal of right ureteral stent 2. Right flexible ureterorenoscopy, laser lithotripsy of material in multiple right calyces 3. No stent Implants: None Pathology: none sent Surgeon: Walker Anesthesia: MAC Estimated blood loss: Minimal Urine output: Not measured Complications: None Findings: Stent easily removed. Condition: stable Disposition: PACU Brief History: Ms. Newman is a very pleasant 74-year-old white female with multiple medical problems who in early November was discovered to have obstructive pyelonephritis with severely dilated right ureter and infected urine. There was no stones identified and it appeared on cystoscopic examination that most of this was related to obstructive sediment related to the infection. A stent was emergently placed and she recovered. Since then she has been hospitalized twice for additional infections. She is back now for inspection of the ureter prior to permanent removal. Procedure: After routine preoperative evaluation examination and obtaining of informed consent she was taken to the operating suite on 01/04/2020 where general anesthesia was administered without difficulty after appropriate timeout was performed, SCDs confirmed to be functioning, preoperative antibiotics administered, beta-leonard protocol confirmed. Prepped and draped in usual sterile fashion in dorsolithotomy position pain careful attention to avoiding pressure points. 21 Marshallese cystoscope with 30 degree lens was introduced to the urethral meatus and advanced into the bladder under videoscopy. Bladder was systematically examined. No stones were seen. Grasping forceps were then utilized to withdraw the distal aspect of the stent through the urethral meatus and a flexible tip guidewire was advanced up the stent without difficulty and the stent removed. The wire was secured to the drapes as a safety wire. The flexible ureteroscope was then advanced into the bladder through the urethral meatus under direct vision and up the right ureter next to the guidewire. The ureter was carefully inspected as the scope was passed into the kidney. There was no lesions stones or any significant sediment within the ureter itself. There was a lot of sediment in the renal pelvis and the upper pole calyx and midpole calyx. Attempt at just flushing this through the scope was unsuccessful due to the adherent nature of the sediment. Trying to flush the sediment to break it up was also unsuccessful and for that reason a 270 ?m holmium laser fiber was utilized to break up the sediment in those locations and then the sediment was then irrigated out of the renal pelvis and calyces through the flexible ureteroscope. On final inspection there was no residual significant sediment/material. The quality of the material was pale white and formed suspicious for potentially a yeast bezoar. As the scope was removed the ureter was again carefully inspected and no residual material was identified. It was decided to not leave a stent indw elling because of the healthy appearance of the well dilated ureter. The bladder was drained and the procedure completed. She tolerated procedure well without complications and was awakened in the ope rating room and returned to PACU in stable condition. PLANS: Continue fluconazole
[2020-01-04] MEDS: levofloxacin-dextrose 5 % 500 MG/100 ML PREMIX 100 MG IV (13:57)
[2020-01-04 15:00] VITALS: BP 138/78; PULSE 90; RESP 18; TEMP 36.4; O2SAT 100
[2020-01-04 15:29] VITALS: BP 132/57; PULSE 86; RESP 18; O2SAT 96
== END 2020-01-04 16:01 | disposition home or self-care (01) ==
PROVIDERS: PCP Internal Medicine; Visit Provider Urology
PROC: 0TJB8ZZ Inspection of Bladder, Via Natural or Artificial Opening Endoscopic (ICD-10-PCS; CPT 52000; principal; 2020-01-04 13:30)
PROC: (CPT 52353; 2020-01-04 13:30)
PROC: 0TJ98ZZ Inspection of Ureter, Via Natural or Artificial Opening Endoscopic (ICD-10-PCS; CPT 52351; 2020-01-04 13:30)
PROC: (CPT 52353; 2020-01-04 13:30)
DX: N11.1 Chronic obstructive pyelonephritis (principal); J44.9 Chronic obstructive pulmonary disease, unspecified; E11.9 Type 2 diabetes mellitus without complications; M79.7 Fibromyalgia; I10 Essential (primary) hypertension; Z79.82 Long term (current) use of aspirin; Z79.84 Long term (current) use of oral hypoglycemic drugs; Z96.0 Presence of urogenital implants; K21.9 Gastro-esophageal reflux disease without esophagitis; E78.5 Hyperlipidemia, unspecified; E66.01 Morbid (severe) obesity due to excess calories; Z68.34 Body mass index [BMI] 34.0-34.9, adult; M19.90 Unspecified osteoarthritis, unspecified site; F03.90 Unspecified dementia, unspecified severity, without behavioral disturbance, psychotic disturbance, mood disturbance, and anxiety
CPT/HCPCS: 52353; 12345; 36416; 76000; 82962; 88305; 94640; 96374; J1815; J1956; J2704; J7030

== ENCOUNTER 2020-01-10 18:08 | Inpatient (IN) | payer MEDICARE, MEDICAID, SELFPAY ==
[2020-01-10 18:10] VITALS: BP 121/67; PULSE 86; RESP 18; TEMP 37; O2SAT 96; BMI 31.6
--- NOTE | 2020-01-10 18:21 | W.ED.FEMALGU ---
HPI - Female Genitourinary General: Chief complaint: Urogenital-Female Stated complaint: BLOOD IN URINE / POSS UTI Time Seen by Provider: 01/10/20 18:19 History of Present Illness: HPI Narrative: Patient is a 74-year-old female who comes to the ED via EMS for blood in the urine. Patient has a past medical history of dementia, chronic obstructive pyelonephritis, chronic cystitis, hypertension, Hypothyroidism, type 2 diabetes, COPD, and GERD and cirrhosis of the liver. Patient states she lives at home with her daughter but has a home health aide that comes out and helps her during the day. The home health aide is the one who called EMS after she saw blood in patient's urine. Home health aide did indicate to EMS that patient recently had a kidney stent removed on January 03.. She does endorse having some discomfort when she urinates and blood in the urine for the past 2 days.. Patient denies any other symptoms and states that she has had blood in her urine in the past and has had a lot of UTIs in the past. Associated symptoms: Deny abdominal pain, headache(s) or nausea Review of Systems Const: Denies: fever(s), chills or fatigue Eyes: Denies: change in vision or eye discomfort ENMT: Denies: throat pain, odynophagia, nasal discharge or nasal congestion Card: Denies: chest pain, palpitations, edema, swelling of feet/ankles, dyspnea on exertion or orthopnea Resp: Denies: dyspnea, productive cough or non-productive cough GI: Denies: abdominal pain, nausea, vomiting, diarrhea, constipation or hematochezia : Reports: dysuria and hematuria; Denies: flank pain Musc: Denies: neck pain, back pain or extremity swelling Skin/Breast: Denies: rash or new lesions Neuro: Denies: headache(s), numbness in extremities or weakness in extremities PFSH ED PFSH: Medical History Cirrhosis of liver COPD (chronic obstructive pulmonary disease) Dementia without behavioral disturbance Diabetes mellitus Fibromyalgia Frailty GERD (gastroesophageal reflux disease) Hypertension Obstructive pyelonephritis Recurrent UTI Retained ureteral stent Surgical History H/O eye surgery S/P cataract extraction S/P cholecystectomy Status post carpal tunnel release of both wrists Family History Other Cancer Diabetes Heart disease Social History Smoking and tobacco status: never smoked Alcohol intake: never Marital status: / Current occupational status: retired History of recent travel: No Current gender identity: Female Physical Exam Const: COMMON NORMALS: no acute distress and alert EXAM LIMITATIONS: altered mental status (pt has diagnosis of dementia at baseline) ORIENTATION/CONSCIOUSNESS: Yes oriented to person HENMT: COMMON NORMALS: normocephalic HEAD & SCALP: normocephalic MOUTH: Normal oral and palatal mucosa present THROAT: posterior oropharynx normal and uvula midline Eye: COMMON NORMALS: Equal, round and reactive pupils present PUPIL: Yes Equal, round and reactive pupils present Neck/C-Spine: COMMON NORMALS: supple GENERAL: Yes normal visual inspection Resp: COMMON NORMALS: normal respiratory effort, No retractions, No use of accessory muscles and clear to auscultation bilaterally AUSCULTATION: clear to auscultation bilaterally Cardio: COMMON NORMALS: regular rate, regular rhythm, S1 normal heart sound present, S2 normal heart sound present, No gallops present (Cardio), No clicks present (Cardio), No murmurs present (Cardio) and Peripheral pulses 2+ throughout RATE: regular rate RHYTHM: regular rhythm HEART SOUNDS: S1 normal heart sound present and S2 normal heart sound present PERIPHERAL PULSES: Peripheral pulses 2+ throughout GI: COMMON NORMALS: Normal to inspection, nondistended, normoactive bowel sounds present, Soft to palpation and no masses PALPATION: Yes Soft to palpation and Yes Tenderness to palpation present (GI) Details: LLQ (Patient did have some tenderness in the left lower quadrant.) : COMMON NORMALS: Yes no CVA tenderness BLADDER/KIDNEY EXAM: Yes no CVA tenderness Back/Pelvis: COMMON NORMALS: no CVA tenderness Extremity: COMMON NORMALS: normal to inspection, capillary refill normal and no pedal edema Neuro: [place] COMA SCALE: document GCS findings [place] coma scale eye opening: Spontaneous [place] coma scale verbal response: Confused [place] coma scale motor response: Obey commands [place] coma scale total score: 14 COMMON NORMALS: moves all extremities SENSORIUM/ORIENTATION: Yes alert, Yes oriented to person and Yes Orientation impaired (Patient new name and date of , but struggled with time and place questions. She did not know Jamie was the vice president of talent acquisition.) OTHER: Patient has baseline dementia. Skin: COMMON NORMALS: no rashes or lesions noted GENERAL SKIN EXAM: no rashes or lesions noted, dry skin and turgor decreased Course Consultations: Consultation #1: I contacted Dr. Cardoso and told him about patient's case. Dr. Cardoso performed a stent removal on patient on 01/03. Dr. Cardoso thought if patient is not having any other problems and labs are looking good that she could be sent home with close follow-up. Vital Signs: Vital signs: Vital Signs Temperature 98.2 F 01/11/20 02:26 Pulse Rate 62 01/11/20 02:26 Respiratory Rate 20 H 01/11/20 02:26 Blood Pressure 121/73 01/11/20 02:26 Pulse Oximetry 97 01/11/20 02:26 MDM - Female MDM Narrative: Medical decision making narrative: Patient is a 74-year-old female who comes to the ED with dysuria and hematuria. Patient has a past medical history of dementia, chronic obstructive pyelonephritis, chronic cystitis, hypertension, Hypothyroidism, type 2 diabetes, COPD, and GERD and cirrhosis of the liver. Physical exam showed some left lower quadrant tenderness upon palpation. White blood cell count 7.7 and hemoglobin 7.3. Sodium 124 and creatinine 1.6 and glucose 423. Straight cath was performed to get urinalysis and nurse described urine is red and having quite a bit of blood and also visible clots. UA showed a lot of blood, 10-50 white blood cells and 2+ bacteria. Lactate was 1.8. I contacted Dr. Cardoso and discussed patient's case with him. CT of the abdomen showed no visible evidence of hydronephrosis, hydroureter or stones. Patient has constipation with a fecal impaction. Patient was given milk and molasses enema and she passed impacted stool. Patient was given IV fluids and Rocephin while here in the unit. 1 unit of blood transfusion was ordered as well. I discussed patient's case with Dr. Fernández and he thought patient needs to be admitted. I contacted the hospitalist health care consultant and told him about patient's condition, labs and imaging and patient will be admitted. Dr. Pradeep will be placing the admitting orders. Lab Data: Attestation: I reviewed the patient's lab results. Labs: Lab Results 01/10/20 01/10/20 01/10/20 Range/Units 18:38 18:38 18:38 WBC 7.7 (4.0-10.0) 10^3/ uL RBC 2.54 L (4.1-5.3) 10^6/u L Hgb 7.3 L (11.5-15.3) g/dL Hct 24.0 L (37.0-47.0) % MCV 94.5 (81-99) fL MCH 28.7 (28.0-34.0) pg MCHC 30.4 (30.0-36.0) g/dL RDW 17.4 H (12.1-15.1) % Plt Count 251 (130-400) 10^3/c mm MPV 9.3 (7.4-10.4) fL Neut % (Auto) 60.7 % Lymph % (Auto) 28.0 % Esmeralda % (Auto) 7.6 % Eos % (Auto) 3.1 % Baso % (Auto) 0.1 % Neut # (Auto) 4.69 (1.8-7.7) 10^3/u L Lymph # (Auto) 2.2 (0.8-4.8) 10^3/u L Esmeralda # (Auto) 0.6 (0.2-0.9) 10^3/u L Eos # (Auto) 0.2 (0.0-0.8) 10^3/u L Baso # (Auto) 0.0 (0.0-0.1) 10^3/u L Nucleated RBC % (a uto) 0 % Nucleated RBCs # 0.0 /100WBC PT 14.30 H (10.5-13.3) SECO NDS INR 1.07 (0.8-1.2) APTT 35.4 (23.9-36.7) SECO NDS Sodium 124 L (136-145) mmol/L Potassium 3.9 (3.5-5.1) mmol/L Chloride 95 L (98-107) mmol/L Carbon Dioxide 18 L (22-29) mmol/L Anion Gap 14.9 (5-19) BUN 35 H (8-23) mg/dL Creatinine 1.6 H (0.5-0.9) mg/dL Glucose 423 H (65-115) mg/dL POC Glucose (70-110) mg/dL Calculated Osmolal ity 273 L (285-295) mOsm/k g Lactic Acid (0.5-2.2) mmol/L Calcium 8.5 (8.5-10.5) mg/dL Total Bilirubin 0.3 (0.15-1.2) mg/dL AST 24 (0-32) U/L ALT 7 (0-33) U/L Alkaline Phosphata se 161 H (35-105) IU/L Total Protein 8.7 (6.6-8.7) g/dL Albumin 3.1 L (3.5-5.2) g/dL Globulin 5.6 H (1.3-4.6) g/dL Urine Color (Yellow) Urine Appearance (CLEAR) Urine pH (5-7) Ur Specific Gravit y (1.005-1.030) Urine Protein (Negative) Urine Glucose (UA) (Normal) Urine Ketones (Negative) Urine Blood (Negative) Urine Nitrate (Negative) Urine Bilirubin (NEGATIVE) Prot Sulfosalicyli c Acd (Negative) Urine Urobilinogen (Negative) mg/dL Ur Leukocyte Roxie ase (Negative) Urine RBC (0-2) /hpf Urine WBC (0-5) /hpf Ur Squamous Epith Cells (0-5) Amorphous Sediment Urine Bacteria (NONE) Blood Type Rho(D) Type Antibody Screen Crossmatch 01/10/20 01/10/20 01/10/20 Range/Units 18:38 19:52 20:29 WBC (4.0-10.0) 10^3/ uL RBC (4.1-5.3) 10^6/u L Hgb (11.5-15.3) g/dL Hct (37.0-47.0) % MCV (81-99) fL MCH (28.0-34.0) pg MCHC (30.0-36.0) g/dL RDW (12.1-15.1) % Plt Count (130-400) 10^3/c mm MPV (7.4-10.4) fL Neut % (Auto) % Lymph % (Auto) % Esmeralda % (Auto) % Eos % (Auto) % Baso % (Auto) % Neut # (Auto) (1.8-7.7) 10^3/u L Lymph # (Auto) (0.8-4.8) 10^3/u L Esmeralda # (Auto) (0.2-0.9) 10^3/u L Eos # (Auto) (0.0-0.8) 10^3/u L Baso # (Auto) (0.0-0.1) 10^3/u L Nucleated RBC % (a uto) % Nucleated RBCs # /100WBC PT (10.5-13.3) SECO NDS INR (0.8-1.2) APTT (23.9-36.7) SECO NDS Sodium (136-145) mmol/L Potassium (3.5-5.1) mmol/L Chloride (98-107) mmol/L Carbon Dioxide (22-29) mmol/L Anion Gap (5-19) BUN (8-23) mg/dL Creatinine (0.5-0.9) mg/dL Glucose (65-115) mg/dL POC Glucose 346 (70-110) mg/dL Calculated Osmolal ity (285-295) mOsm/k g Lactic Acid 1.8 (0.5-2.2) mmol/L Calcium (8.5-10.5) mg/dL Total Bilirubin (0.15-1.2) mg/dL AST (0-32) U/L ALT (0-33) U/L Alkaline Phosphata se (35-105) IU/L Total Protein (6.6-8.7) g/dL Albumin (3.5-5.2) g/dL Globulin (1.3-4.6) g/dL Urine Color (Yellow) Urine Appearance (CLEAR) Urine pH (5-7) Ur Specific Gravit y (1.005-1.030) Urine Protein (Negative) Urine Glucose (UA) (Normal) Urine Ketones (Negative) Urine Blood (Negative) Urine Nitrate (Negative) Urine Bilirubin (NEGATIVE) Prot Sulfosalicyli c Acd (Negative) Urine Urobilinogen (Negative) mg/dL Ur Leukocyte Roxie ase (Negative) Urine RBC (0-2) /hpf Urine WBC (0-5) /hpf Ur Squamous Epith Cells (0-5) Amorphous Sediment Urine Bacteria (NONE) Blood Type O Positive Rho(D) Type Positive Antibody Screen Negative Crossmatch See Detail 01/10/20 01/10/20 Range/Units 20:56 22:35 WBC (4.0-10.0) 10^3/ uL RBC (4.1-5.3) 10^6/u L Hgb (11.5-15.3) g/dL Hct (37.0-47.0) % MCV (81-99) fL MCH (28.0-34.0) pg MCHC (30.0-36.0) g/dL RDW (12.1-15.1) % Plt Count (130-400) 10^3/c mm MPV (7.4-10.4) fL Neut % (Auto) % Lymph % (Auto) % Esmeralda % (Auto) % Eos % (Auto) % Baso % (Auto) % Neut # (Auto) (1.8-7.7) 10^3/u L Lymph # (Auto) (0.8-4.8) 10^3/u L Esmeralda # (Auto) (0.2-0.9) 10^3/u L Eos # (Auto) (0.0-0.8) 10^3/u L Baso # (Auto) (0.0-0.1) 10^3/u L Nucleated RBC % (a uto) % Nucleated RBCs # /100WBC PT (10.5-13.3) SECO NDS INR (0.8-1.2) APTT (23.9-36.7) SECO NDS Sodium (136-145) mmol/L Potassium (3.5-5.1) mmol/L Chloride (98-107) mmol/L Carbon Dioxide (22-29) mmol/L Anion Gap (5-19) BUN (8-23) mg/dL Creatinine (0.5-0.9) mg/dL Glucose (65-115) mg/dL POC Glucose 171 (70-110) mg/dL Calculated Osmolal ity (285-295) mOsm/k g Lactic Acid (0.5-2.2) mmol/L Calcium (8.5-10.5) mg/dL Total Bilirubin (0.15-1.2) mg/dL AST (0-32) U/L ALT (0-33) U/L Alkaline Phosphata se (35-105) IU/L Total Protein (6.6-8.7) g/dL Albumin (3.5-5.2) g/dL Globulin (1.3-4.6) g/dL Urine Color Red (Yellow) Urine Appearance Hazy A (CLEAR) Urine pH 6.5 (5-7) Ur Specific Gravit y 1.010 (1.005-1.030) Urine Protein 1+ H (Negative) Urine Glucose (UA) 4+ H (Normal) Urine Ketones Negative (Negative) Urine Blood 3+ H (Negative) Urine Nitrate Negative (Negative) Urine Bilirubin Neg (NEGATIVE) Prot Sulfosalicyli c Acd Negative (Negative) Urine Urobilinogen Norm (Negative) mg/dL Ur Leukocyte Roxie ase Negative (Negative) Urine RBC Too numerous to c nt H (0-2) /hpf Urine WBC 10-15 H (0-5) /hpf Ur Squamous Epith Cells 55-80 H (0-5) Amorphous Sediment Not Reportable Urine Bacteria 2+ H (NONE) Blood Type Rho(D) Type Antibody Screen Crossmatch Imaging Data: CT Abd/Pel: Attestation: I personally reviewed and interpreted this imaging study as follows: Radiologist's impression: [place] [address] CT Scan Report Signed Patient: Melba Newman Unit #: [id number] : 1945 Age/Sex: 74 / F ADM Date: 01/10/20 Loc: ER Room/Bed: Attending Dr: Ordering Provider/Ordering MD: Nirmal Gannon Date of Service: 01/10/20 Procedure(s): CT abdomen pelvis con [id number] Accession Number(s): [id number] Report Number: [id number] PROCEDURE INFORMATION: Exam: CT Abdomen And Pelvis Without Contrast Exam date and time: 01/10/2020 9:25 PM Age: 74 years old Clinical indication: Other: Hematuria; Abdominal pain; Generalized; Additional info: Llq abdom pain and hematuria TECHNIQUE: Imaging protocol: Computed tomography of the abdomen and pelvis without contrast. Radiation optimization: All CT scans at this facility use at least one of these dose optimization techniques: automated exposure control; mA and/or kV adjustment per patient size (includes targeted exams where dose is matched to clinical indication); or iterative reconstruction. COMPARISON: CT kidney stone [id number] 12/15/2019 10:28 PM RADIATION DOSE METRICS: Total DLP (mGy-cm): 1878.02 FINDINGS: Lungs: Limited assessment lung bases reveals rare subpleural pulmonary nodules to include a 7 mm x 4 mm subpleural pulmonary nodule right middle lobe stable since prior study. Liver: Cirrhotic appearing liver. Evidence of portal venous hypertension. No visible hepatic mass or cystic structure. Gallbladder and bile ducts: Status post cholecystectomy. No visible intra or extrahepatic biliary ectasia. Pancreas: Atrophic pancreas. No visible pancreatic ductal ectasia. Spleen: Splenomegaly. Splenic varices. Spleen otherwise unremarkable. Adrenals: Normal. No mass. Kidneys and ureters: No visible hydronephrosis, hydroureter, ureterolithiasis, nephrolithiasis, or bladder stone. Interval removal right double-J ureteral stent since 12/15/2019. Stomach and bowel: Constipation with fecal impaction. Nonobstructive bowel pattern. No visible evidence of significant adynamic or reactive ileus. Appendix: No evidence of appendicitis. Intraperitoneal space: No visible free fluid the pelvis. No visible generalized ascites. Vasculature: The abdominal aorta is nonaneurysmal. Moderate arterial sclerotic disease. Coronary artery disease. Lymph nodes: No visible active mesenteric lymphadenopathy/lymphadenitis or mesenteritis/panniculitis. Few marginally prominent periaortic and pericaval lymph nodes. Doubt of clinical significance as they have remained stable. Bladder: Bladder unremarkable. No filling defect. No visible bladder stone. Reproductive: Unremarkable as visualized. Bones/joints: Old superior endplate deformity L4. Mild anterior spondylolisthesis L5 on S1 secondary to ligamentous laxity from facet arthrosis. Mild scoliosis. Soft tissues: Heavy body habitus CT/CT abdomen pelvis wo con [id number] IMPRESSION: 1. Currently no visible evidence of hydronephrosis, hydroureter, ureterolithiasis, nephrolithiasis, or bladder stone. 2. Interval removal of the right double-J ureteral stent. 3. Constipation with fecal impaction. 4. Cirrhotic appearing liver. 5. Splenomegaly. 6. Limited assessment lung bases reveals rare sub pleural pulmonary nodules to include a 7 mm x 4 mm subpleural nodule right middle lobe. For patients at low risk (minimal or absent history of smoking and of other known risk factors), recommend CT at 6-12 months, then consider CT at 18-24 months. For patients at high risk (history of smoking or of other known risk factors), recommend CT at 6-12 months, then CT at 18-24 months. (Leigh Ann et al., Fleischner Society, 2017). Radiation Dose CTDIVOL = (mGy): DLP = 1878.02 (mGy-cm) Dictated By: Tyrese Boone Signed By: Tyrese Boone Signed Date/Time: 01/10/202218 DD/ 17 Discharge Plan Discharge Admit Provider: Germán Peters Discharge Date/Time: 01/11/20 02:23 Coding Level of Care Code ED Director Of Marketing Communications for Chg Fwd Exam Comprehensive
[2020-01-10 18:55] LABS: Basophils % 0.1 %; Eosinophils # 0.2 10^3/uL (0.0-0.8); Eosinophils % 3.1 %; Hemoglobin 7.3 g/dL (11.5-15.3); Lymphocytes # 2.2 10^3/uL (0.8-4.8); Mean Corpuscular HGB Conc 30.4 g/dL (30.0-36.0); Mean Corpuscular Hemoglobin 28.7 pg (28.0-34.0); Mean Corpuscular Volume 94.5 fL (81-99); Mean Platelet Volume 9.3 fL (7.4-10.4); Monocytes # 0.6 10^3/uL (0.2-0.9); Monocytes % 7.6 %; Neutrophils # 4.69 10^3/uL (1.8-7.7); Neutrophils % 60.7 %; Nucleated Red Blood Cells % 0 %; Platelet Count 251 10^3/cmm (130-400); Red Blood Count 2.54 10^6/uL (4.1-5.3); Red Cell Distribution Width 17.4 % (12.1-15.1); White Blood Count 7.7 10^3/uL (4.0-10.0)
[2020-01-10 19:11] LABS: Alanine Aminotransferase 7 U/L (0-33); Albumin Level 3.1 g/dL (3.5-5.2); Alkaline Phosphatase 161 IU/L (35-105); Anion Gap 14.9 (5-19); Aspartate Amino Transferase 24 U/L (0-32); Blood Urea Nitrogen 35 mg/dL (8-23); Calcium 8.5 mg/dL (8.5-10.5); Carbon Dioxide 18 mmol/L (22-29); Chloride 95 mmol/L (98-107); Globulin 5.6 g/dL (1.3-4.6); Glucose 423 mg/dL (65-115); Osmolality Calculated 273 mOsm/kg (285-295); Potassium 3.9 mmol/L (3.5-5.1); Sodium 124 mmol/L (136-145); Total Bilirubin 0.3 mg/dL (0.15-1.2); Total Protein 8.7 g/dL (6.6-8.7)
[2020-01-10 19:15] VITALS: BP 121/87; PULSE 84; RESP 18; O2SAT 99
[2020-01-10] MEDS: sodium chloride 0.9% 500 ML IV (19:32)
[2020-01-10 19:55] LABS: INR 1.07 (0.8-1.2)
[2020-01-10 19:56] LABS: Partial Thromboplastin Time 35.4 SECONDS (23.9-36.7)
[2020-01-10] MEDS: insulin regular-human 100 units/1 mL 5 UNIT IVP (19:57)
[2020-01-10 20:00] VITALS: BP 126/74; PULSE 84; O2SAT 98
[2020-01-10 20:01] LABS: Lactic Sepsis W/Reflex 1.8 mmol/L (0.5-2.2)
[2020-01-10 20:31] LABS: Glucose Point of Care 346 mg/dL (70-110)
[2020-01-10 21:00] VITALS: BP 126/68; PULSE 92; O2SAT 96
--- NOTE | 2020-01-10 21:07 | CTR_ITS ---
PROCEDURE INFORMATION: Exam: CT Abdomen And Pelvis Without Contrast Exam date and time: 01/10/2020 9:25 PM Age: 74 years old Clinical indication: Other: Hematuria; Abdominal pain; Generalized; Additional info: Llq abdom pain and hematuria TECHNIQUE: Imaging protocol: Computed tomography of the abdomen and pelvis without contrast. Radiation optimization: All CT scans at this facility use at least one of these dose optimization techniques: automated exposure control; mA and/or kV adjustment per patient size (includes targeted exams where dose is matched to clinical indication); or iterative reconstruction. COMPARISON: CT kidney stone [id number] 12/15/2019 10:28 PM RADIATION DOSE METRICS: Total DLP (mGy-cm): 1878.02 FINDINGS: Lungs: Limited assessment lung bases reveals rare subpleural pulmonary nodules to include a 7 mm x 4 mm subpleural pulmonary nodule right middle lobe stable since prior study. Liver: Cirrhotic appearing liver. Evidence of portal venous hypertension. No visible hepatic mass or cystic structure. Gallbladder and bile ducts: Status post cholecystectomy. No visible intra or extrahepatic biliary ectasia. Pancreas: Atrophic pancreas. No visible pancreatic ductal ectasia. Spleen: Splenomegaly. Splenic varices. Spleen otherwise unremarkable. Adrenals: Normal. No mass. Kidneys and ureters: No visible hydronephrosis, hydroureter, ureterolithiasis, nephrolithiasis, or bladder stone. Interval removal right double-J ureteral stent since 12/15/2019. Stomach and bowel: Constipation with fecal impaction. Nonobstructive bowel pattern. No visible evidence of significant adynamic or reactive ileus. Appendix: No evidence of appendicitis. Intraperitoneal space: No visible free fluid the pelvis. No visible generalized ascites. Vasculature: The abdominal aorta is nonaneurysmal. Moderate arterial sclerotic disease. Coronary artery disease. Lymph nodes: No visible active mesenteric lymphadenopathy/lymphadenitis or mesenteritis/panniculitis. Few marginally prominent periaortic and pericaval lymph nodes. Doubt of clinical significance as they have remained stable. Bladder: Bladder unremarkable. No filling defect. No visible bladder stone. Reproductive: Unremarkable as visualized. Bones/joints: Old superior endplate deformity L4. Mild anterior spondylolisthesis L5 on S1 secondary to ligamentous laxity from facet arthrosis. Mild scoliosis. Soft tissues: Heavy body habitus CT/CT abdomen pelvis wo con [id number] IMPRESSION: 1. Currently no visible evidence of hydronephrosis, hydroureter, ureterolithiasis, nephrolithiasis, or bladder stone. 2. Interval removal of the right double-J ureteral stent. 3. Constipation with fecal impaction. 4. Cirrhotic appearing liver. 5. Splenomegaly. 6. Limited assessment lung bases reveals rare sub pleural pulmonary nodules to include a 7 mm x 4 mm subpleural nodule right middle lobe. For patients at low risk (minimal or absent history of smoking and of other known risk factors), recommend CT at 6-12 months, then consider CT at 18-24 months. For patients at high risk (history of smoking or of other known risk factors), recommend CT at 6-12 months, then CT at 18-24 months. (Leigh Ann et al., Fleischner Society, 2017). Radiation Dose CTDIVOL = (mGy): DLP = 1878.02 (mGy-cm)
[2020-01-10 21:30] VITALS: BP 136/67; PULSE 87; RESP 20; O2SAT 96
[2020-01-10] MEDS: insulin regular-human 100 units/1 mL 10 UNIT IVP (21:30)
[2020-01-10 21:38] LABS: Add Urine Microscopic? YES; Bilirubin Urine Neg (NEGATIVE); Blood Urine 3+ (Negative); Glucose Urine UA 4+ (Normal); Ketones Urine Negative (Negative); Leukocyte Esterase Urine Negative (Negative); Nitrate Urine Negative (Negative); Protein Urine 1+ (Negative); Sulfosalicylic Acid Urine Negative (Negative); Urine Appearance Hazy (CLEAR); Urine Color Red (Yellow); Urobilinogen Urine Norm (Negative); pH Urine 6.5 (5-7)
[2020-01-10 21:47] LABS: Add Urine Culture? No; Bacteria Urine 2+; RBC Urine TOO NUMEROUS TO CNT /hpf (0-2); Squamous Epithelial Cell Urine 55-80 (0-5)
[2020-01-10 22:40] LABS: Glucose Point of Care 171 mg/dL (70-110)
[2020-01-10] MEDS: cefTRIAXone 1,000 MG in sodium chloride 0.9% (plus) 50 ML 100 MG IV (22:44)
--- NOTE | 2020-01-10 23:13 | PC.NURSE ---
report given to brandt weinberg assumed care.
[2020-01-11] VITALS (22 sets, daily range): BP systolic 103–138; BP diastolic 50–80; PULSE 62–112; RESP 16–20; TEMP 36.7–37.1; O2SAT 95–99
[2020-01-11] MEDS: sodium chloride 0.9% 1,000 ML 75 ML IV ×2 (00:03→13:51)
--- NOTE | 2020-01-11 02:25 | PC.NURSE ---
PATIENT TO THE FLOOR FROM ER PER JOHN AT 0215. 1 UNIT OF BLOOD TRANSFUSING PATIENT TO THE FLOOR. PATIENT IS CONFUSED, BUT COOPERATIVE. REPORTS GENERAL PAIN ALL OVER AND THAT SHE IS COLD, OTHER THAN THAT NO OTHER COMPLAINTS. VITAL SIGNS OBTAINED AT THIS TIME AND WNL.
--- NOTE | 2020-01-11 03:14 | P.HP_ITS ---
Providers/Chief Complaint Primary Care Provider: Pilo Alexis MD Chief Complaint: BLOOD IN URINE / POSS UTI History of Present Illness Melba Newman is a 74 year old lady with multiple medical comorbidities, including COPD, liver cirrhosis, chronic kidney disease, DM 2, GERD, with obstructive pyelonephritis back in November at which time had a ureteral stent placed, and this was just recently removed on 01/03, has been at her baseline state of health until today, when she was feeling slightly unwell, and her daughter noticed that she was having blood in her urine this was seen again in the ER, with red urine, although reported not opaque obtained with straight catheterization, with noted too numerous to count RBCs on UA, 10-15 WBCs. Due to concern for worsening anemia with baseline around 8-9, today hemoglobin is 7.3. Also with noted hyponatremia of 124 on metabolic panel, with prior mild hyponatremia usually in mid 30s. CT abdomen pelvis obtained in ER showed no hydronephrosis or hydroureter. Confirming removal of right ureteral stent. Fecal impaction for which she received MOM enema in ER with subsequent bowel movement. Also noted on CT incidentally found for subpleural pulmonary nodules, including 7 x 4 mm in the right middle lobe. Patient herself currently in the room on medical floor is covered by multiple blankets, but says she always gets cold. Denies any chills, fever. Reports that has been feeling well, mostly sitting in chair and watching TV up until today. She states that her daughter was the one who noticed blood in her urine. She denies any syncope or presyncopal symptoms. She denies any issues with her balance recently or any increase of falls. She says she walks around with a walker at home. She is receiving PRBC transfusion at this time. Placement observation was requested due to new worsening of anemia, as well as hyponatremia. Review of Systems Const: Reports: fatigue (today); Denies: fever(s), chills, body aches or malaise Eyes: Denies: change in vision or eye redness ENMT: Denies: throat pain, oral sores or ear or mastoid pain Card: Denies: chest pain, edema, pre-syncope or dyspnea on exertion Resp: Denies: dyspnea, productive cough, change in phlegm color or hemoptysis GI: Denies: abdominal pain, nausea, vomiting, diarrhea, constipation, hematochezia or melena : Denies: flank pain, urinary frequency or hematuria Musc: Denies: back pain, joint swelling or joint redness Skin/Breast: Denies: rash, sores or new lesions Neuro: Denies: headache(s), numbness in extremities, weakness in extremities, dizziness, confusion or seizure-like activity Endo: Denies: polyuria or polydipsia Man/Lymph: Denies: easy bleeding or purpura All/Imm: Denies: urticaria, throat swelling or tongue swelling Medications/Allergies Home Medications Medication Instructions Recorded Confirmed Last Taken Type omeprazole 20 mg capsule,delayed 20 mg PO DAILY #30 cap 09/21/19 01/10/20 01/10/20 Rx release levothyroxine 150 mcg capsule 150 mcg PO DAILY #30 cap 09/28/19 01/10/20 01/10/20 Rx liraglutide 0.6 mg/0.1 mL (18 mg/3 1.8 mg SUBCUT Q24H #9 ml 09/28/19 01/10/20 01/10/20 Rx mL) subcutaneous pen injector ferrous sulfate 325 mg (65 mg 325 mg PO DAILY #30 tab 10/16/19 01/10/20 01/10/20 Rx iron) tablet pen needle, diabetic 31 gauge x #100 each 10/16/19 01/10/20 Unknown Rx 11/10 insulin lispro [Humalog KwikPen See Rx Instructions .ROUTE .COMPLEX 11/30/19 01/10/20 01/10/20 History Insulin] gabapentin 400 mg PO TID 12/11/19 01/10/20 01/10/20 History oxybutynin chloride 5 mg PO DAILY 12/11/19 01/10/20 01/10/20 History albuterol sulfate 90 mcg/actuation 2 puff INHALATION Q6H PRN #8.5 gm 12/14/19 01/10/20 01/10/20 Rx aerosol inhaler allopurinol 100 mg tablet 100 mg PO DAILY #30 tab 12/14/19 01/10/20 01/10/20 Rx Lantus U-100 Insulin 10 unit SUBCUT BID #0 ml 12/21/19 01/10/20 01/10/20 Rx Xifaxan 550 mg PO DAILY 01/03/20 01/10/20 01/10/20 History duloxetine [Cymbalta] 30 mg PO BID 01/03/20 01/10/20 01/10/20 History amlodipine 5 mg PO DAILY 01/04/20 01/10/20 01/10/20 History lactulose 20 g PO Q6H PRN 01/04/20 01/10/20 01/03/20 History metoprolol tartrate 12.5 mg PO BID 01/04/20 01/10/20 01/10/20 History Allergies Allergy/AdvReac Type Severity Reaction Status Date / Time celecoxib [From Celebrex] Allergy Intermediate confusion Verified 01/10/20 18:59 meperidine [From Demerol] Allergy Unknown Verified 01/10/20 18:59 theophylline Allergy Unknown Verified 01/10/20 18:59 PFSH Acute PFSH: Medical History Cirrhosis of liver COPD (chronic obstructive pulmonary disease) Dementia without behavioral disturbance Diabetes mellitus Fibromyalgia Frailty GERD (gastroesophageal reflux disease) Hypertension Obstructive pyelonephritis Recurrent UTI Retained ureteral stent Surgical History H/O eye surgery S/P cataract extraction S/P cholecystectomy Status post carpal tunnel release of both wrists Family History Other Cancer Diabetes Heart disease Social History Smoking and tobacco status: never smoked Alcohol intake: never Marital status: / Current occupational status: retired History of recent travel: No Current gender identity: Female Vitals/I&O/Wt Last Vital Signs Temp 98.2 F 01/11/20 02:26 Pulse 62 01/11/20 02:26 Resp 20 H 01/11/20 02:26 BP 121/73 01/11/20 02:26 Pulse Ox 97 01/11/20 02:26 01/10/20 01/10/20 01/11/20 14:59 22:59 06:59 Intake Total 0 / 0 Balance 0 / 0 Weight last 48 hrs Weight 86.183 kg Physical Exam Const: COMMON NORMALS: no acute distress and patient oriented x3 GENERAL APPEARANCE: frail appearing HENMT: COMMON NORMALS: oropharynx normal Neck/C-Spine: COMMON NORMALS: no JVD Resp: COMMON NORMALS: normal respiratory effort and clear to auscultation bilaterally AUSCULTATION: clear to auscultation bilaterally Cardio: COMMON NORMALS: no JVD, regular rhythm, S1 normal heart sound present, S2 normal heart sound present and No murmurs present (Cardio) RHYTHM: regular rhythm HEART SOUNDS: S1 normal heart sound present and S2 normal heart sound present GI: COMMON NORMALS: Normal to inspection, nondistended, normoactive bowel sounds present, Soft to palpation and non-tender PALPATION: Yes Tenderness to palpation present (GI) (Mild tenderness on deep palpation) Extremity: COMMON NORMALS: no joint enlargement and no pedal edema Neuro: COMMON NORMALS: patient oriented x3 and moves all extremities Skin: COMMON NORMALS: no rashes or lesions noted GENERAL SKIN EXAM: no rashes or lesions noted Data : 01/10/20 18:38 01/10/20 18:38 Micro: Microbiology 01/10/20 18:38 Blood Culture - Preliminary Blood SPECIMEN COLLECTED A&P Assessment and plan (1) Hematuria: Noted earlier today by her daughter. She says was feeling somewhat tired, somewhat off . She herself did not notice any problems with her urine. With noted anemia in ER, Hemoccult down to 8.3 previously usually around 8-9. On 01/03 had a right ureter , previously placed due to obstructive pyelonephritis back in November. Her urologist was contacted in ER, with recommendation to follow-up with him in his but is available if needed. Urine reported red, but not opaque. Was kept in observation due to worsening anemia, as well as hyponatremia. Monitor for any worsening of hematuria. She is not currently on any blood thinners. UA was not a clean sample, with 55-80 squamous epithelial cells, however, will request for urinary culture. Currently she is afebrile, without leukocytosis. Not significantly symptomatic, and so UTI at this time is not suspected. Negative nitrite and leukocyte esterase in urine. However, UTI/cystitis may be considered if there is a defining organism on culture. Received a dose of Rocephin in ER. Previously does have history of ESBL organism infection with Klebsiella in November. Status: Acute (2) Anemia: Acute anemia, usually hemoglobin around 8-9. Receiving 1 unit PRBC transfusion. Will reassess in the morning. Continue to monitor for any ongoing hematuria. Status: Acute (3) Hyponatremia: Sodium 124. Constipated.. Somewhat on the dry side. Received fluid challenge in ER. At this time will continue regular diet. Will reassess sodium level. Hold off additional IVF until results available. Status: Acute (4) Pulmonary nodules: Incidentally noted on CT abdomen pelvis. Please discuss with patient and family on a nonurgent basis. Consider additional follow-up. Status: Acute (5) Chronic kidney disease: Creatinine appears at baseline currently. Status: Acute Additional A&P Information Diabetes: Consistent carbohydrate diet, continue Lantus. Insulin sliding scale. COPD: Not currently in exacerbation. She says she is supposed to be on oxygen at home but does not wear it. FANNY: Reports history of FANNY, but says is not adherent with BiPAP. Liver cirrhosis: Continue lactulose, Xifaxan. Continue follow-up with PCP. Dementia Rectal prolapse Other chronic medical conditions. Attestations Medical Necessity Statement*: Place in observation. 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
[2020-01-11 05:43] LABS: Basophils % 0.1 %; Eosinophils # 0.2 10^3/uL (0.0-0.8); Eosinophils % 3.1 %; Hematocrit 26.3 % (37.0-47.0); Lymphocytes # 2.1 10^3/uL (0.8-4.8); Lymphocytes % 27.9 %; Mean Corpuscular HGB Conc 30.4 g/dL (30.0-36.0); Mean Corpuscular Hemoglobin 27.9 pg (28.0-34.0); Mean Corpuscular Volume 91.6 fL (81-99); Mean Platelet Volume 9.6 fL (7.4-10.4); Monocytes # 0.6 10^3/uL (0.2-0.9); Neutrophils # 4.55 10^3/uL (1.8-7.7); Neutrophils % 60.5 %; Nucleated Red Blood Cells % 0 %; Platelet Count 243 10^3/cmm (130-400); Red Blood Count 2.87 10^6/uL (4.1-5.3); Red Cell Distribution Width 16.9 % (12.1-15.1); White Blood Count 7.5 10^3/uL (4.0-10.0)
[2020-01-11 06:05] LABS: Anion Gap 14.8 (5-19); Blood Urea Nitrogen 30 mg/dL (8-23); Calcium 8.2 mg/dL (8.5-10.5); Carbon Dioxide 19 mmol/L (22-29); Chloride 103 mmol/L (98-107); Glucose 302 mg/dL (65-115); Osmolality Calculated 284 mOsm/kg (285-295); Potassium 3.8 mmol/L (3.5-5.1); Sodium 133 mmol/L (136-145)
[2020-01-11 06:24] LABS: Glucose Point of Care 288 mg/dL (70-110)
[2020-01-11] MEDS: levothyroxine 150 mcg Tablet PO (08:02)
[2020-01-11] MEDS: duloxetine 30 mg Capsule PO ×2 (08:02→17:26)
[2020-01-11] MEDS: ferrous sulfate EC 325 mg Tablet PO (08:03)
[2020-01-11] MEDS: oxybutynin chloride XL 5 MG TABLET PO (08:03)
[2020-01-11] MEDS: amlodipine 5 mg Tablet PO (08:03)
[2020-01-11] MEDS: pantoprazole DR 40 mg Tablet PO (08:03)
[2020-01-11] MEDS: allopurinol 100 mg Tablet PO (08:03)
[2020-01-11] MEDS: gabapentin 400 mg Capsule PO ×3 (08:03→20:18)
[2020-01-11] MEDS: metoprolol tartrate 25 mg Tablet 12.5 MG PO ×2 (08:03→17:16)
--- NOTE | 2020-01-11 08:15 | PC.NURSE ---
Patient laying in bed with room close to nurse's station, door to room open, call light within reach. Patient cooperative and responsive, patient states that she is at her house and that the year is 1979. Reoriented patient to correct date and place.
[2020-01-11] MEDS: insulin glargine 100 units/1 mL 10 UNIT SUBCUT (10:11)
[2020-01-11 10:40] LABS: Glucose Point of Care 354 mg/dL (70-110)
[2020-01-11 10:40] LABS: Glucose Point of Care 396 mg/dL (70-110)
--- NOTE | 2020-01-11 11:24 | PC.CHAP ---
Pastoral Care Encounter/Spiritual Assessment Type of Contact [] Declined guest services attendant visit [] Patient/Family/Request visit [] Outpatient visit [] Follow-up visit [] Physician referral [] Code/Alert [x] Routine visit [] Staff referral [] Actively dying [] Patient sleeping [] Family support [] [] Out of room [] Palliative care [] [] Receiving care in room [] Pre-surgical visit [] Trauma [] Long length of stay [] ICU visit [] Other: Relational/Emotional Strength [x] Patient feels connected with others/family/visitors/staff [] Distress [] Loneliness/isolation [] Abandonment Spirituality of Patient [x] Person of Rhea [x] Attends Tenriism of their Rhea [x] Believes in Prayer [x] Reads Bible or Roman Catholic materials [] There are Spiritual issues to be addressed Head Of Integrated Media Interventions [x] Prayer [x] Active listening [x] Non-anxious presence [x] Spiritual/emotional support [] Crisis/trauma care [] Spiritual counseling [] Bereavement support [] Provided bereavement packet [] Provided Bible/devotional materials [] Provided toy/stuffed animal, coloring book to patient or family member [] Provided Communion [] Anointing/[place] [] Salvation [x] Completed spiritual assessment [] Other: Impact on Illness or Injury [] Angry [] Fearful [] Anxious [] Often cries [] Exhaustion [] Unable to work [] Unable to attend evangelical [] Unable to walk/stand [] Unable to read [] Unable to drive [] Unable to eat/drink [] Unable to sleep [] Unable to be with family [] Patient intubated [] Other: Summary Patient is a believer and follower of [employer]. She was for 65 years and lost her recently. Time spent with patient 20 minutes
[2020-01-11] MEDS: iron sucrose 200 MG in sodium chloride 0.9% (100 ml) 100 ML 220 MG IV (13:51)
[2020-01-11] MEDS: lactulose oral liq 20 gm/30 mL UDC PO (13:51)
--- NOTE | 2020-01-11 14:54 | PM.PN ---
Subjective Subjective: Interval history: Admitted last night. H&P and labs noted. On examination patient is mildly confused. She states she came to hospital to look at 1 of her's friends and then was captured in the hospital and nobody is getting it out anymore. She states he is not a patient and if the general public right now and does not need to be in the hospital. She denies of having any nausea, vomiting, headache. On speaking with daughter she states patient has been having occasional confusion which is been getting worse for last 3 days. She states patient has not been taking her lactulose for last 5 days because patient has been having 2 bowel movements. Now she saying she is not really sure the patient was having 2 bowel movements or not or was patient just making it up. Vitals/I&O/Wt Last Vital Signs Temp 98.1 F 01/11/20 11:19 Pulse 66 01/11/20 11:19 Resp 20 H 01/11/20 11:19 BP 128/70 01/11/20 11:19 Pulse Ox 98 01/11/20 11:19 01/10/20 01/11/20 01/11/20 22:59 06:59 14:59 Intake Total 350 / 350 1120 / 1120 Balance 350 / 350 1120 / 1120 Weight last 48 hrs Weight 86.183 kg Weight 86.183 kg Physical Exam Narrative: EXAM NARRATIVE: General: No acute distress, AO x1-2, confused, dehydrated HEENT: PERRLA, pupils bilaterally equal and reactive Chest: Normal vesicular breath sounds, occasional basilar rhonchi, equal good air entry bilaterally CVS: S1-S2 regular, no murmurs, no tachycardia, no gallops, no rubs Abdomen: Soft, nontender, no organomegaly, bowel sounds present Neuro: No focal deficits, no facial deformity, AO x3, power 5/5 in all limbs Data : 01/11/20 05:10 01/11/20 05:10 Micro: Microbiology 01/10/20 18:38 Blood Culture - Preliminary Blood SPECIMEN COLLECTED A&P Assessment and plan (1) Confusion: Status: Acute (2) Hematuria: Status: Acute (3) Anemia: Status: Acute (4) Hyponatremia: Status: Acute (5) Pulmonary nodules: Incidentally noted on CT abdomen pelvis. Please discuss with patient and family on a nonurgent basis. Consider additional follow-up. Status: Acute (6) Chronic kidney disease: Creatinine appears at baseline currently. Status: Acute Additional A&P Information Confusion: Most likely because of liver cirrhosis causing her to have hepatic encephalopathy. Daughter saying that patient has not been getting her lactulose for last 4 to 5 days. Patient recently had an extensive work-up in November because of same and it was thought to be because of worsening dementia. At that time she had MRI of brain which showed no acute infarction, no significant carotid artery stenosis, EF 55%, grade 2 diastolic dysfunction. Meningitis was a low probability because of no fever or meningeal signs. Patient does not have any signs of infection at present. No fevers, no leukocytosis, urinalysis negative for any signs of infection, patient denies any dysuria. Check ammonia levels. We will restart lactulose 20 g p.o. twice daily and will increase it to make sure patient has at least 2-3 episodes of bowel movement today. Continue with oral rifaximin. Could be because of hyponatremia: Patient did have some hyponatremia on admission which has improved with IV fluids. Sodium back to its baseline of 133 today. Continue with IV fluids. Normal saline at 75 cc/h. We will continue to monitor BMP and sodium levels daily. Hematuria: Patient recently had double-J stent removal by Dr. Cardoso few days ago. Case discussed with Dr. Cardoso. Chow catheter. We will continue to monitor for hematuria. If persists then will consult Dr. Cardoso. Continue with fluid as above. Anemia: Patient has already received 1 unit PRBC overnight. Baseline hemoglobin around 8-9. Hemoglobin back to baseline Iron panel few days ago extremely deranged. Start patient on IV iron supplementation. 200 mg daily for 5 days. Will discharge patient on oral iron supplementation. Check CBC daily. We will check vitamin B12 and folate levels. Hypertension: Goal blood pressure less than 140/90 mmHg. Continue with home dose of amlodipine. Continue to monitor blood pressures. Diabetes: Consistent carbohydrate diet, continue Lantus. Insulin sliding scale. COPD: Not currently in exacerbation. She says she is supposed to be on oxygen at home but does not wear it. FANNY: Reports history of FANNY, but says is not adherent with BiPAP. Liver cirrhosis: Continue lactulose, Xifaxan. Continue follow-up with PCP. Dementia Rectal prolapse Continue other chronic medications like Cymbalta, gabapentin, levothyroxine, oxybutynin. Full code. Cardiac diet carb consistent. SCDs for DVT prophylaxis. We will hold off on therapeutic DVT prophylaxis because of ongoing hematuria and anemia. Change admission to inpatient. Attestations Medical Necessity Statement*: Confusion, most likely hepatic encephalopathy, hematuria, anemia Time Spent in Patient Care: Greater than 35 minutes (>than 50% of time spent in counselling and/or direct pt care on unit). Coding Level of Care Code Acute Quality Improvement Coordinator for [facility] Diagnoses Confusion R41.0 Hematuria R31.9 Anemia D64.9 Hyponatremia E87.1 Pulmonary nodules R91.8 Chronic kidney disease N18.9
--- NOTE | 2020-01-11 15:00 | PC.NURSE ---
16fr indwelling patton was placed, patient tolerated well.
--- NOTE | 2020-01-11 15:01 | PC.NURSE ---
indwelling patton placement was successful. urine draining into patton bag, bag placed below patient's waist.
[2020-01-11 15:20] LABS: Ammonia 44 umol/L (11-51)
[2020-01-11 15:25] LABS: Iron 211 ug/dL (37-145); Percent Saturation 78.7 % (20-50); Total Iron Binding Capacity 268 mcg/dl; Unsaturated Iron Binding 57 ug/dL (112-347)
[2020-01-11 16:08] LABS: Folate Level 12.1 ng/mL (4.8-37.3)
[2020-01-11 16:22] LABS: Glucose Point of Care 405 mg/dL (70-110)
[2020-01-11 16:38] LABS: Glucose Point of Care 386 mg/dL (70-110)
[2020-01-11] MEDS: insulin glargine 100 units/1 mL 25 UNIT SUBCUT (17:26)
--- NOTE | 2020-01-11 17:38 | PC.NURSE ---
Patient weighs 126lbs and 4oz.
[2020-01-11 21:08] LABS: Glucose Point of Care 358 mg/dL (70-110)
[2020-01-12] VITALS: BP 124/56; PULSE 85; RESP 20; TEMP 36.8; O2SAT 95
[2020-01-12] MEDS: lactulose oral liq 20 gm/30 mL UDC PO ×2 (02:04→12:15)
[2020-01-12 04:00] VITALS: BP 114/68; PULSE 93; RESP 20; TEMP 37.4; O2SAT 92
[2020-01-12] MEDS: sodium chloride 0.9% 1,000 ML 75 ML IV (04:10)
[2020-01-12 05:22] LABS: Basophils % 0.4 %; Eosinophils # 0.3 10^3/uL (0.0-0.8); Eosinophils % 4.6 %; Hematocrit 29.6 % (37.0-47.0); Lymphocytes # 2.2 10^3/uL (0.8-4.8); Lymphocytes % 39.3 %; Mean Corpuscular HGB Conc 30.4 g/dL (30.0-36.0); Mean Corpuscular Volume 92.2 fL (81-99); Mean Platelet Volume 9.9 fL (7.4-10.4); Monocytes # 0.7 10^3/uL (0.2-0.9); Neutrophils # 2.44 10^3/uL (1.8-7.7); Neutrophils % 43.5 %; Nucleated Red Blood Cells % 0 %; Platelet Count 237 10^3/cmm (130-400); Red Blood Count 3.21 10^6/uL (4.1-5.3); Red Cell Distribution Width 16.7 % (12.1-15.1); White Blood Count 5.6 10^3/uL (4.0-10.0)
[2020-01-12 05:55] LABS: Alanine Aminotransferase 8 U/L (0-33); Albumin Level 2.8 g/dL (3.5-5.2); Alkaline Phosphatase 144 IU/L (35-105); Aspartate Amino Transferase 27 U/L (0-32); Blood Urea Nitrogen 32 mg/dL (8-23); Calcium 8.3 mg/dL (8.5-10.5); Carbon Dioxide 20 mmol/L (22-29); Chloride 106 mmol/L (98-107); Globulin 5.3 g/dL (1.3-4.6); Glucose 209 mg/dL (65-115); Osmolality Calculated 283 mOsm/kg (285-295); Sodium 135 mmol/L (136-145); Total Bilirubin 0.5 mg/dL (0.15-1.2); Total Protein 8.1 g/dL (6.6-8.7)
[2020-01-12 06:55] LABS: Glucose Point of Care 197 mg/dL (70-110)
[2020-01-12 07:54] VITALS: BP 136/72; PULSE 91; RESP 18; TEMP 37.2; O2SAT 95
[2020-01-12] MEDS: duloxetine 30 mg Capsule PO (08:03)
[2020-01-12] MEDS: levothyroxine 150 mcg Tablet PO (08:03)
[2020-01-12] MEDS: insulin glargine 100 units/1 mL 25 UNIT SUBCUT (08:03)
[2020-01-12] MEDS: gabapentin 400 mg Capsule PO ×2 (08:03→14:49)
[2020-01-12] MEDS: oxybutynin chloride XL 5 MG TABLET PO (08:03)
[2020-01-12] MEDS: amlodipine 5 mg Tablet PO (08:03)
[2020-01-12] MEDS: pantoprazole DR 40 mg Tablet PO (08:03)
[2020-01-12] MEDS: metoprolol tartrate 25 mg Tablet 12.5 MG PO (08:04)
[2020-01-12] MEDS: allopurinol 100 mg Tablet PO (08:04)
[2020-01-12 08:14] VITALS: PULSE 94; RESP 18; O2SAT 96
--- NOTE | 2020-01-12 09:23 | PC.NURSE ---
left iv access positional, pt states discomfort with left iv. attempted new iv, was unsuccessful.
--- NOTE | 2020-01-12 10:08 | PC.CHAP ---
Pastoral Care Encounter/Spiritual Assessment Type of Contact [] Declined information services manager visit [] Patient/Family/Request visit [] Outpatient visit [] Follow-up visit [] Physician referral [] Code/Alert [x] Routine visit [] Staff referral [] Actively dying [] Patient sleeping [] Family support [] [] Out of room [] Palliative care [] [] Receiving care in room [] Pre-surgical visit [] Trauma [] Long length of stay [] ICU visit [] Other: Relational/Emotional Strength [] Patient feels connected with others/family/visitors/staff [] Distress [] Loneliness/isolation [] Abandonment Spirituality of Patient [] Person of Rhea [] Attends Confucianist of their Rhea [] Believes in Prayer [] Reads Bible or Scientologist materials [] There are Spiritual issues to be addressed Telecommunication Engineer Interventions [x] Prayer [x] Active listening [x] Non-anxious presence [x] Spiritual/emotional support [] Crisis/trauma care [] Spiritual counseling [] Bereavement support [] Provided bereavement packet [] Provided Bible/devotional materials [] Provided toy/stuffed animal, coloring book to patient or family member [] Provided Communion [] Anointing/[place] [] Salvation [x] Completed spiritual assessment [] Other: Impact on Illness or Injury [] Angry [] Fearful [] Anxious [] Often cries [] Exhaustion [] Unable to work [] Unable to attend voodoo [] Unable to walk/stand [] Unable to read [] Unable to drive [] Unable to eat/drink [] Unable to sleep [] Unable to be with family [] Patient intubated [] Other: Summary Patient resting Time spent with patient 5 min
[2020-01-12] MEDS: iron sucrose 200 MG in sodium chloride 0.9% (100 ml) 100 ML 220 MG IV (10:30)
[2020-01-12 11:07] LABS: Vitamin B12 > 2000 pg/mL (232-1245)
[2020-01-12 11:36] VITALS: BP 142/83; PULSE 90; RESP 18; TEMP 37.4; O2SAT 95
[2020-01-12 12:03] LABS: Glucose Point of Care 259 mg/dL (70-110)
--- NOTE | 2020-01-12 12:10 | PC.RESP ---
Pulmonary Rehab information sent to patient.
--- NOTE | 2020-01-12 14:16 | PM.DCS ---
Discharge Providers Date of Admission: 01/11/20 00:52 Date of Discharge: January 12, 2020 Attending Provider at Admission: Germán Peters Attending Provider at Discharge: Hi Quevedo MD Primary Care Provider: Pilo Alexis MD Diagnoses at Discharge Discharge Diagnosis (1) Confusion: Status: Acute (2) Hematuria: Status: Acute (3) Anemia: Status: Acute (4) Hyponatremia: Status: Acute (5) Pulmonary nodules: Status: Acute (6) Chronic kidney disease: Status: Acute Reason for Visit Reason for Visit: BLOOD IN URINE / POSS UTI Hospital Course Discharge Summary: Melba Newman is a 74 year old lady with multiple medical comorbidities, including COPD, liver cirrhosis, chronic kidney disease, DM 2, GERD, with obstructive pyelonephritis back in November at which time had a ureteral stent placed, and this was just recently removed on 01/03, has been at her baseline state of health until today, when she was feeling slightly unwell, and her daughter noticed that she was having blood in her urine this was seen again in the ER, with red urine, although reported not opaque obtained with straight catheterization, with noted too numerous to count RBCs on UA, 10-15 WBCs. Due to concern for worsening anemia with baseline around 8-9, today hemoglobin is 7.3. Also with noted hyponatremia of 124 on metabolic panel, with prior mild hyponatremia usually in mid 30s. CT abdomen pelvis obtained in ER showed no hydronephrosis or hydroureter. Confirming removal of right ureteral stent. Fecal impaction for which she received MOM enema in ER with subsequent bowel movement. Also noted on CT incidentally found for subpleural pulmonary nodules, including 7 x 4 mm in the right middle lobe. Patient herself currently in the room on medical floor is covered by multiple blankets, but says she always gets cold. Denies any chills, fever. Reports that has been feeling well, mostly sitting in chair and watching TV up until today. She states that her daughter was the one who noticed blood in her urine. She denies any syncope or presyncopal symptoms. She denies any issues with her balance recently or any increase of falls. She says she walks around with a walker at home. She is receiving PRBC transfusion at this time. Placement observation was requested due to new worsening of anemia, as well as hyponatremia. She was transfused 1 unit of PRBC. Chow catheter was done and she did not have any more hematuria. IV fluids were started and her sodium levels improved. On further questioning with the daughter she stated that patient has not been taking her lactulose for last 5 to 6 days as she states that she is having good bowel movements but it is quite possible that she is not having any as per the daughter. Patient was started on lactulose and she had good 1 or 2 bowel movements after which her mentation improved to her baseline. Her hemoglobin has remained stable in addition 9 on the day of discharge. She is been discharged hemodynamically stable condition with advised to follow-up with her primary care provider within next 2 weeks and continue taking her lactulose at least twice a day and increasing as required until she has 2-3 bowel movements a day. Physical Exam Narrative: EXAM NARRATIVE: General: No acute distress, AO x1-2, confused, dehydrated HEENT: PERRLA, pupils bilaterally equal and reactive Chest: Normal vesicular breath sounds, occasional basilar rhonchi, equal good air entry bilaterally CVS: S1-S2 regular, no murmurs, no tachycardia, no gallops, no rubs Abdomen: Soft, nontender, no organomegaly, bowel sounds present Neuro: No focal deficits, no facial deformity, AO x3, power 5/5 in all limbs Urinary Catheter Management^: Chow: Cath Placed During This Visit: no Reason for Continuing Indwelling Catheter: Acute Urinary Retention or Obstruction Discharge Data Data Completed and Pending: Completed Studies During Hospitalization Category Date Time Status CT abdomen pelvis wo con [id number] Urge nt Cat Scan 01/10/20 21:07 Completed Pending at discharge Category Date Time Status Blood Culture Sta t Lab 01/10/20 18:38 Results Urine Culture Rou angelica Lab 01/11/20 03:47 Results Labs from last 24 hours 01/12/20 01/12/20 01/12/20 11:34 06:36 04:20 WBC RBC Hgb Hct MCV MCH MCHC RDW Plt Count MPV Neut % (Auto) Lymph % (Auto) Clay % (Auto) Eos % (Auto) Baso % (Auto) Neut # (Auto) Lymph # (Auto) Clay # (Auto) Eos # (Auto) Baso # (Auto) Nucleated RBC % (a uto) Nucleated RBCs # Sodium 135 L Potassium 4.0 Chloride 106 Carbon Dioxide 20 L Anion Gap 13.0 BUN 32 H Creatinine 1.7 H Glucose 209 H POC Glucose 259 197 Calculated Osmolal ity 283 L Calcium 8.3 L Iron TIBC % Saturation Unsat Iron Binding Total Bilirubin 0.5 AST 27 ALT 8 Alkaline Phosphata se 144 H Ammonia Total Protein 8.1 Albumin 2.8 L Globulin 5.3 H Vitamin B12 Folate 01/12/20 01/11/20 01/11/20 04:20 20:55 16:21 WBC 5.6 RBC 3.21 L Hgb 9.0 L Hct 29.6 L MCV 92.2 MCH 28.0 MCHC 30.4 RDW 16.7 H Plt Count 237 MPV 9.9 Neut % (Auto) 43.5 Lymph % (Auto) 39.3 Clay % (Auto) 12.0 Eos % (Auto) 4.6 Baso % (Auto) 0.4 Neut # (Auto) 2.44 Lymph # (Auto) 2.2 Clay # (Auto) 0.7 Eos # (Auto) 0.3 Baso # (Auto) 0.0 Nucleated RBC % (a uto) 0 Nucleated RBCs # 0.0 Sodium Potassium Chloride Carbon Dioxide Anion Gap BUN Creatinine Glucose POC Glucose 358 386 Calculated Osmolal ity Calcium Iron TIBC % Saturation Unsat Iron Binding Total Bilirubin AST ALT Alkaline Phosphata se Ammonia Total Protein Albumin Globulin Vitamin B12 Folate 01/11/20 01/11/20 01/11/20 16:17 14:38 14:38 WBC RBC Hgb Hct MCV MCH MCHC RDW Plt Count MPV Neut % (Auto) Lymph % (Auto) Clay % (Auto) Eos % (Auto) Baso % (Auto) Neut # (Auto) Lymph # (Auto) Clay # (Auto) Eos # (Auto) Baso # (Auto) Nucleated RBC % (a uto) Nucleated RBCs # Sodium Potassium Chloride Carbon Dioxide Anion Gap BUN Creatinine Glucose POC Glucose 405 Calculated Osmolal ity Calcium Iron 211 H TIBC 268 % Saturation 78.7 H Unsat Iron Binding 57 L Total Bilirubin AST ALT Alkaline Phosphata se Ammonia 44 Total Protein Albumin Globulin Vitamin B12 Folate 01/11/20 01/11/20 05:10 05:10 WBC RBC Hgb Hct MCV MCH MCHC RDW Plt Count MPV Neut % (Auto) Lymph % (Auto) Clay % (Auto) Eos % (Auto) Baso % (Auto) Neut # (Auto) Lymph # (Auto) Clay # (Auto) Eos # (Auto) Baso # (Auto) Nucleated RBC % (a uto) Nucleated RBCs # Sodium Potassium Chloride Carbon Dioxide Anion Gap BUN Creatinine Glucose POC Glucose Calculated Osmolal ity Calcium Iron TIBC % Saturation Unsat Iron Binding Total Bilirubin AST ALT Alkaline Phosphata se Ammonia Total Protein Albumin Globulin Vitamin B12 > 2000 H Folate 12.1 Vitals: Last Vital Signs Temp 99.3 F 01/12/20 11:36 Pulse 90 01/12/20 11:36 Resp 18 01/12/20 11:36 BP 142/83 01/12/20 11:36 Pulse Ox 95 01/12/20 11:36 Discharge Plan Discharge Patient Disposition: Home, Self-Care Condition: Stable Prescriptions: Continued ferrous sulfate 325 mg (65 mg iron) tablet 325 mg PO DAILY Qty: 30 RF: 3 (DME) pen needle, diabetic [Pen Needle] 31 gauge x 5/16 needle See Rx Instructions .ROUTE .MEDSUPPLY Qty: 100 RF: 12 omeprazole 20 mg capsule,delayed release(DR/EC) 20 mg PO DAILY Qty: 30 RF: 3 Victoza 3-Porter 0.6 mg/0.1 mL (18 mg/3 mL) pen injector 1.8 mg SUBCUT Q24H Qty: 9 RF: 3 levothyroxine 150 mcg capsule 150 mcg PO DAILY Qty: 30 RF: 3 albuterol sulfate [ProAir HFA] 90 mcg/actuation HFA aerosol inhaler 2 puff INHALATION Q6H PRN (Reason: shortness of breath) Qty: 8.5 RF: 3 allopurinol 100 mg tablet 100 mg PO DAILY Qty: 30 RF: 3 insulin lispro [Humalog KwikPen Insulin] 100 unit/mL insulin pen See Rx Instructions .ROUTE .COMPLEX RF: 0 gabapentin 800 mg tablet 400 mg PO TID RF: 0 oxybutynin chloride 5 mg Tablet Extended Release 24hr 5 mg PO DAILY RF: 0 Lantus U-100 Insulin 100 unit/mL solution 10 unit SUBCUT BID Qty: 0 RF: 0 duloxetine [Cymbalta] 30 mg Capsule,Delayed Release(Dr/Ec) 30 mg PO BID RF: 0 Xifaxan 550 MG 550 mg PO DAILY RF: 0 lactulose 20 gram/30 mL solution 20 g PO Q6H PRN (Reason: Constipation) RF: 0 amlodipine 5 mg tablet 5 mg PO DAILY RF: 0 metoprolol tartrate 25 mg tablet 12.5 mg PO BID RF: 0 Discharge Orders: Discharge Order (Routine); Ordered 01/12/20 Ordered By: Hi Quevedo Referrals: Pilo Alexis MD [Primary Care Provider] - 2 weeks Discharge Diet: Cardiac Discharge Activity: Resume usual activity Discharge Attestations Time Spent in Discharge Care*: greater than 30 min Specific Discharge Activities: Specific discharge activities: educating patient, educating and/or supporting family/caregiver, discussing with caseworker protective services/social workers/dc planners, documenting/other paperwork and evaluating patient/reviewing data Status at Discharge: Cognitive status at discharge: moderately impaired cognition, Behavioral status at discharge: cooperative and can be uncooperative, Functional status at discharge: independent ambulation Overall status at discharge: patient is back to baseline Quality Metrics Clinical Quality Measures During this hospital stay, did patient experience: None Coding Level of Care Code Acute 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
[2020-01-12 14:58] VITALS: BP 142/83; PULSE 90; RESP 18; TEMP 37.4; O2SAT 95
--- NOTE | 2020-01-12 17:00 | PC.NURSE ---
patient discharged to go home, son-in-law and daughter present to take her home. all belongings with patient.
== END 2020-01-12 17:11 | disposition home or self-care (01) | DRG 641 ==
LOC: ER 18:32 → MEDSURG 01-11 01:20
PROVIDERS: Emergency Medicine; Physician Assistant; Admitting Provider Internal Medicine; PCP Internal Medicine; Visit Provider Student in an Organized Health Care Education/Training Program
DX: E87.1 Hypo-osmolality and hyponatremia (principal); R31.9 Hematuria, unspecified; J44.9 Chronic obstructive pulmonary disease, unspecified; N18.9 Chronic kidney disease, unspecified; E11.22 Type 2 diabetes mellitus with diabetic chronic kidney disease; K21.9 Gastro-esophageal reflux disease without esophagitis; K56.41 Fecal impaction; M79.7 Fibromyalgia; I12.9 Hypertensive chronic kidney disease with stage 1 through stage 4 chronic kidney disease, or unspecified chronic kidney disease; G47.33 Obstructive sleep apnea (adult) (pediatric); K74.60 Unspecified cirrhosis of liver; F03.90 Unspecified dementia, unspecified severity, without behavioral disturbance, psychotic disturbance, mood disturbance, and anxiety
CPT/HCPCS: 12345; 36415; 36416; 36430; 51702; 74176; 80048; 80053; 81001; 81003; 82140; 82607; 82746; 82962; 83540; 83550; 83605; 85025; 85610; 85730; 86850; 86900; 86920; 87040; 87077; 87086; 87186; 96372; 99283; G0378; J0696; J1756; J1815 ×2; J7030; J7040; P9016

== ENCOUNTER 2020-01-23 15:43 | Inpatient (IN) | payer MEDICARE, MEDICAID, SELFPAY ==
[2020-01-23 15:44] VITALS: BP 151/73; PULSE 91; RESP 20; TEMP 36.9; O2SAT 95; BMI 33.3
--- NOTE | 2020-01-23 16:02 | XRR_ITS ---
PROCEDURE INFORMATION: Exam: XR Chest, 1 View Exam date and time: 01/23/2020 4:33 PM Age: 74 years old Clinical indication: Patient HX: altered mental status; PT unable to give history TECHNIQUE: Imaging protocol: XR of the chest Views: Frontal portable upright view of the chest. COMPARISON: CR XR chest 1V portable [id number] 12/15/2019 9:53 PM FINDINGS: Lungs: Mildly improved right basilar pulmonary subsegmental atelectasis. The lungs are otherwise peripherally clear bilaterally. The pulmonary vasculature is normal. Pleural space: No pleural effusion. No pneumothorax. Heart/Mediastinum: The heart is normal in size and contour. Mediastinum: Stable. Vasculature: Moderate aortic arch atherosclerotic calcification without ectasia. Diaphragm: The right hemidiaphragm remains moderately elevated. Bones/joints: Stable. Organs: The gallbladder is likely surgically absent, with metallic clips overlying the gallbladder fossa. XR/XR chest 1V portable [id number] IMPRESSION: 1. Mildly improved right basilar pulmonary subsegmental atelectasis. 2. Prior cholecystectomy.
--- NOTE | 2020-01-23 16:04 | ECG_ITS ---
[facility] Test Date: 2020-01-23 Pat Name: Melba Newman Department: Room: Gender: Female Record Searcher: : 1945 Requested By: Doe Perales Order Number: [id number] Fco MD: Sandeep Espinoza M.D. Measurements Intervals [place] Rate: 86 P: 44 KS: 176 QRS: -30 QRSD: 88 T: 59 QT: 368 QTc: 442 Interpretive Statements SINUS RHYTHM MINIMAL VOLTAGE CRITERIA FOR LVH, CONSIDER NORMAL VARIANT [MEETS CRITERIA IN ONE OF: R(aVL), S(V1), R(V5), R(V5/V6)+S(V1)] POSSIBLE ANTERIOR MYOCARDIAL INFARCTION , OF INDETERMINATE AGE [30 ms Q WAVE IN V3/V4, OR R < 0.2 mV IN V4] Compared to ECG 12/16/2019 03:42:04 Left-axis deviation no longer present Myocardial infarct finding still present Electronically Signed On 01-23-2020 20:44:07 CDT by Sandeep Espinoza M.D. [id number]
--- NOTE | 2020-01-23 16:04 | CTR_ITS ---
PROCEDURE INFORMATION: Exam: CT Head Without Contrast Exam date and time: 01/23/2020 4:08 PM Age: 74 years old Clinical indication: Altered mental status/memory loss; Patient HX: Best images patient uncooperative; Additional info: AMS TECHNIQUE: Imaging protocol: Computed tomography of the head without contrast. Radiation optimization: All CT scans at this facility use at least one of these dose optimization techniques: automated exposure control; mA and/or kV adjustment per patient size (includes targeted exams where dose is matched to clinical indication); or iterative reconstruction. COMPARISON: CT head wo con* [id number] 12/15/2019 10:24 PM RADIATION DOSE METRICS: Total DLP (mGy-cm): 1212.28 FINDINGS: Brain: Moderate diffuse cortical volume loss. Mild hypodensities in supratentorial periventricular and subcortical white matter. No intracranial hemorrhage. Ventricles: Normal. No ventriculomegaly. Bones/joints: Unremarkable. No acute fracture. Sinuses: Visualized sinuses are unremarkable. No fluid levels. Mastoid air cells: Visualized mastoid air cells are well aerated. Orbits: Prior cataract surgery. Soft tissues: Unremarkable. CT/CT head wo con* [id number] IMPRESSION: 1. Stable CT head. No acute abnormality identified. 2. Mild microangiopathy. Radiation Dose CTDIVOL = (mGy): DLP = 1212.28 (mGy-cm)
--- NOTE | 2020-01-23 16:05 | W.ED.AMS ---
HPI - Altered Mental Status General: Chief Complaint: Altered Mental Status Stated Complaint: AMS Time Seen by Provider: 01/23/20 15:52 History of Present Illness: HPI narrative: Patient presents to the ER with reported altered mental status. Patient states that her home health aide felt she was sick and sent her to the ER. Patient states she is not ill and that her mental status is normal. Patient's daughter also reported altered mental status today. In the emergency department the patient is awake and alert. She does not seem confused however she is not extremely cooperative. MD complaint: altered mental status and confusion Onset (ago): unknown Timing confirmed by: family member Severity: similar to previous episodes Consistency of symptoms: Waxing and Waning Context: history of similar presentation Review of Systems General: Reports: 10 or more systems reviewed and unremarkable except in HPI and below PFSH ED PFSH: Medical History (Updated 01/23/20 @ 18:08 by Doe Reed, ) Cirrhosis of liver COPD (chronic obstructive pulmonary disease) Dementia without behavioral disturbance Diabetes mellitus Fibromyalgia Frailty GERD (gastroesophageal reflux disease) Hypertension Obstructive pyelonephritis Recurrent UTI Retained ureteral stent Surgical History H/O eye surgery S/P cataract extraction S/P cholecystectomy Status post carpal tunnel release of both wrists Family History Other Cancer Diabetes Heart disease Social History Smoking and tobacco status: never smoked Alcohol intake: never Marital status: / Current occupational status: retired History of recent travel: No Current gender identity: Female Physical Exam Const: COMMON NORMALS: no acute distress, patient oriented x3, no limitations and alert HENMT: COMMON NORMALS: normocephalic, atraumatic, external ears normal and Normal external nose present HEAD & SCALP: normocephalic and atraumatic FACE & SINUS: normal facial exam NOSE: Normal external nose present EXTERNAL EAR: Yes external ears normal MOUTH: Normal oral and palatal mucosa present Neck/C-Spine: COMMON NORMALS: full ROM, no lymphadenopathy, supple, no meningeal signs and no JVD GENERAL: Yes normal visual inspection Resp: COMMON NORMALS: normal respiratory effort, No retractions, No use of accessory muscles and clear to auscultation bilaterally AUSCULTATION: clear to auscultation bilaterally Cardio: COMMON NORMALS: no JVD, regular rate and regular rhythm RATE: regular rate RHYTHM: regular rhythm GI: COMMON NORMALS: Normal to inspection, nondistended, normoactive bowel sounds present, Soft to palpation, non-tender, No hepatosplenomegaly present and no masses INSPECTION: Yes normal to inspection AUSCULTATION: Yes normoactive bowel sounds PALPATION: Yes Soft to palpation and Yes No hepatosplenomegaly present PERCUSSION: normal to percussion : COMMON NORMALS: Yes no CVA tenderness and Yes normal external appearance BLADDER/KIDNEY EXAM: Yes no CVA tenderness Back/Pelvis: COMMON NORMALS: no CVA tenderness, thoracic and lumbar spine normal to inspection, no thoracic nor lumbar tenderness, thoraco-lumbar ROM normal and straight leg raise negative bilaterally Extremity: COMMON NORMALS: normal to inspection, full ROM, capillary refill normal, no joint enlargement, no clubbing, cyanosis or edema, no calf tenderness and no pedal edema Neuro: COMMON NORMALS: patient oriented x3, moves all extremities, no focal motor deficits and no sensory deficits noted SENSORIUM/ORIENTATION: Yes alert MENINGEAL SIGNS: Yes no meningeal signs Psych: COMMON NORMALS: mental status grossly normal and speech normal APPEARANCE: Yes disheveled ATTITUDE: Yes Withdrawn affect present ACTIVITY/MOTOR BEHAVIOR: Yes psychomotor slowing and Yes Avoids eye contact (attititude/behavior) SPEECH: Yes normal speech and Yes slow MOOD & AFFECT: Yes depressed mood and Yes Flat affect present THOUGHT CONTENT: Yes Derealization present ATTENTION/CONCENTRATION: Yes attention grossly impaired and Yes concentration grossly impaired INSIGHT: Poor insight present (Psych) JUDGEMENT: Poor judgement present (Psych) Skin: COMMON NORMALS: no rashes or lesions noted, no wounds, turgor normal, no jaundice, no petechiae and no mottling GENERAL SKIN EXAM: no rashes or lesions noted and turgor normal Course Vital Signs: Vital signs: Vital Signs Temperature 98.4 F 01/23/20 15:44 Pulse Rate 91 01/23/20 15:44 Respiratory Rate 20 H 01/23/20 15:44 Blood Pressure 151/73 01/23/20 15:44 Pulse Oximetry 95 01/23/20 15:44 MDM - Altered Mental Status Lab Data: Labs: Lab Results 01/23/20 01/23/20 01/23/20 Range/Units 16:26 16:26 16:26 WBC 5.1 (4.0-10.0) 10^3/ uL RBC 3.28 L (4.1-5.3) 10^6/u L Hgb 9.2 L (11.5-15.3) g/dL Hct 30.9 L (37.0-47.0) % MCV 94.2 (81-99) fL MCH 28.0 (28.0-34.0) pg MCHC 29.8 L (30.0-36.0) g/dL RDW 17.2 H (12.1-15.1) % Plt Count 317 (130-400) 10^3/c mm MPV 9.6 (7.4-10.4) fL Neut % (Auto) 41.5 % Lymph % (Auto) 43.9 % Latimer % (Auto) 7.1 % Eos % (Auto) 6.9 % Baso % (Auto) 0.4 % Neut # (Auto) 2.11 (1.8-7.7) 10^3/u L Lymph # (Auto) 2.2 (0.8-4.8) 10^3/u L Latimer # (Auto) 0.4 (0.2-0.9) 10^3/u L Eos # (Auto) 0.4 (0.0-0.8) 10^3/u L Baso # (Auto) 0.0 (0.0-0.1) 10^3/u L Nucleated RBC % (a uto) 0 % Nucleated RBCs # 0.0 /100WBC Sodium 133 L (136-145) mmol/L Potassium 4.2 (3.5-5.1) mmol/L Chloride 103 (98-107) mmol/L Carbon Dioxide 19 L (22-29) mmol/L Anion Gap 15.2 (5-19) BUN 36 H (8-23) mg/dL Creatinine 1.9 H (0.5-0.9) mg/dL GFR Calculation Not Reportable Glucose 275 H (65-115) mg/dL Calculated Osmolal ity 283 L (285-295) mOsm/k g Calcium 9.0 (8.5-10.5) mg/dL Total Bilirubin 0.4 (0.15-1.2) mg/dL AST 38 H (0-32) U/L ALT 19 (0-33) U/L Alkaline Phosphata se 264 H (35-105) IU/L Ammonia 112 H (11-51) umol/L Troponin T Baselin e (0-10) ng/L Total Protein 9.2 H (6.6-8.7) g/dL Albumin 2.9 L (3.5-5.2) g/dL Globulin 6.3 H (1.3-4.6) g/dL TSH 1.98 (0.27-4.20) uIU/ mL Urine Color (Yellow) Urine Appearance (CLEAR) Urine pH (5-7) Ur Specific Gravit y (1.005-1.030) Urine Protein (Negative) Urine Glucose (UA) (Normal) Urine Ketones (Negative) Urine Blood (Negative) Urine Nitrate (Negative) Urine Bilirubin (NEGATIVE) Urine Urobilinogen (Negative) mg/dL Ur Leukocyte Roxie ase (Negative) Urine RBC (0-2) /hpf Urine WBC (0-5) /hpf Ur Squamous Epith Cells (0-5) Amorphous Sediment Urine Bacteria (NONE) Urine Opiates Scre en (Negative) ng/mL Ur Barbiturates Sc reen (Negative) ng/mL Ur Phencyclidine S crn (Negative) ng/mL Ur Amphetamines Sc reen (Negative) ng/mL U Benzodiazepines Scrn (Negative) ng/mL Urine Cocaine Scre en (Negative) ng/mL U Marijuana (THC) Screen (Negative) ng/mL 01/23/20 01/23/20 01/23/20 Range/Units 16:26 16:35 16:35 WBC (4.0-10.0) 10^3/ uL RBC (4.1-5.3) 10^6/u L Hgb (11.5-15.3) g/dL Hct (37.0-47.0) % MCV (81-99) fL MCH (28.0-34.0) pg MCHC (30.0-36.0) g/dL RDW (12.1-15.1) % Plt Count (130-400) 10^3/c mm MPV (7.4-10.4) fL Neut % (Auto) % Lymph % (Auto) % Latimer % (Auto) % Eos % (Auto) % Baso % (Auto) % Neut # (Auto) (1.8-7.7) 10^3/u L Lymph # (Auto) (0.8-4.8) 10^3/u L Latimer # (Auto) (0.2-0.9) 10^3/u L Eos # (Auto) (0.0-0.8) 10^3/u L Baso # (Auto) (0.0-0.1) 10^3/u L Nucleated RBC % (a uto) % Nucleated RBCs # /100WBC Sodium (136-145) mmol/L Potassium (3.5-5.1) mmol/L Chloride (98-107) mmol/L Carbon Dioxide (22-29) mmol/L Anion Gap (5-19) BUN (8-23) mg/dL Creatinine (0.5-0.9) mg/dL GFR Calculation Glucose (65-115) mg/dL Calculated Osmolal ity (285-295) mOsm/k g Calcium (8.5-10.5) mg/dL Total Bilirubin (0.15-1.2) mg/dL AST (0-32) U/L ALT (0-33) U/L Alkaline Phosphata se (35-105) IU/L Ammonia (11-51) umol/L Troponin T Baselin e 13 H (0-10) ng/L Total Protein (6.6-8.7) g/dL Albumin (3.5-5.2) g/dL Globulin (1.3-4.6) g/dL TSH (0.27-4.20) uIU/ mL Urine Color Yellow (Yellow) Urine Appearance Sl cloudy A (CLEAR) Urine pH 5 (5-7) Ur Specific Gravit y 1.015 (1.005-1.030) Urine Protein 1+ H (Negative) Urine Glucose (UA) 2+ (Normal) Urine Ketones Negative (Negative) Urine Blood 3+ H (Negative) Urine Nitrate Negative (Negative) Urine Bilirubin Neg (NEGATIVE) Urine Urobilinogen Neg (Negative) mg/dL Ur Leukocyte Roxie ase 2+ H (Negative) Urine RBC 40-50 H (0-2) /hpf Urine WBC Too numerous to c nt H (0-5) /hpf Ur Squamous Epith Cells 0-4 H (0-5) Amorphous Sediment Not Reportable Urine Bacteria 2+ H (NONE) Urine Opiates Scre en Positive H (Negative) ng/mL Ur Barbiturates Sc reen Negative (Negative) ng/mL Ur Phencyclidine S crn Negative (Negative) ng/mL Ur Amphetamines Sc reen Negative (Negative) ng/mL U Benzodiazepines Scrn Negative (Negative) ng/mL Urine Cocaine Scre en Negative (Negative) ng/mL U Marijuana (THC) Screen Negative (Negative) ng/mL Discharge Plan Discharge Patient Disposition: Admitted As Inpatient Clinical Impression: Acute UTI, Hepatic encephalopathy Altered mental status Qualifiers: Altered mental status type: delirium Qualified Code(s): R41.0 - Disorientation, unspecified Anemia Qualifiers: Anemia type: unspecified type Qualified Code(s): D64.9 - Anemia, unspecified Condition: Fair Referrals: Pilo Alexis MD [Primary Care Provider] - Coding Level of Care Code ED It Support Engineer for [facility] Fwd Exam Comprehensive
[2020-01-23 16:34] LABS: Basophils % 0.4 %; Eosinophils # 0.4 10^3/uL (0.0-0.8); Eosinophils % 6.9 %; Hematocrit 30.9 % (37.0-47.0); Hemoglobin 9.2 g/dL (11.5-15.3); Lymphocytes # 2.2 10^3/uL (0.8-4.8); Lymphocytes % 43.9 %; Mean Corpuscular HGB Conc 29.8 g/dL (30.0-36.0); Mean Corpuscular Volume 94.2 fL (81-99); Mean Platelet Volume 9.6 fL (7.4-10.4); Monocytes # 0.4 10^3/uL (0.2-0.9); Monocytes % 7.1 %; Neutrophils # 2.11 10^3/uL (1.8-7.7); Neutrophils % 41.5 %; Nucleated Red Blood Cells % 0 %; Platelet Count 317 10^3/cmm (130-400); Red Blood Count 3.28 10^6/uL (4.1-5.3); Red Cell Distribution Width 17.2 % (12.1-15.1); White Blood Count 5.1 10^3/uL (4.0-10.0)
[2020-01-23 16:53] LABS: Ammonia 112 umol/L (11-51)
[2020-01-23 17:00] LABS: Troponin(5th) Baseline 13 ng/L (0-10)
[2020-01-23 17:07] LABS: Alanine Aminotransferase 19 U/L (0-33); Albumin Level 2.9 g/dL (3.5-5.2); Alkaline Phosphatase 264 IU/L (35-105); Anion Gap 15.2 (5-19); Aspartate Amino Transferase 38 U/L (0-32); Blood Urea Nitrogen 36 mg/dL (8-23); Carbon Dioxide 19 mmol/L (22-29); Chloride 103 mmol/L (98-107); Globulin 6.3 g/dL (1.3-4.6); Glucose 275 mg/dL (65-115); Osmolality Calculated 283 mOsm/kg (285-295); Potassium 4.2 mmol/L (3.5-5.1); Sodium 133 mmol/L (136-145); Thyroid Stimulating Hormone 1.98 uIU/mL (0.27-4.20); Total Bilirubin 0.4 mg/dL (0.15-1.2); Total Protein 9.2 g/dL (6.6-8.7)
[2020-01-23 17:18] LABS: Add Urine Microscopic? YES; Bilirubin Urine Neg (NEGATIVE); Blood Urine 3+ (Negative); Glucose Urine UA 2+ (Normal); Ketones Urine Negative (Negative); Leukocyte Esterase Urine 2+ (Negative); Nitrate Urine Negative (Negative); Protein Urine 1+ (Negative); Specific Gravity, Urine 1.015 (1.005-1.030); Urine Color Yellow (Yellow); Urobilinogen Urine Neg (Negative); pH Urine 5 (5-7)
[2020-01-23 17:26] LABS: RBC Urine 40-50 /hpf (0-2); WBC Urine TOO NUMEROUS TO CNT /hpf (0-5)
[2020-01-23 17:27] LABS: Add Urine Culture? Yes; Amphetamines Screen Urine Negative (Negative); Bacteria Urine 2+; Barbiturates Screen Urine Negative (Negative); Benzodiazepines Screen Urine Negative (Negative); Cocaine Screen Urine Negative (Negative); Opiate Screen Urine Positive (Negative); PCP Screen Urine Negative (Negative); Squamous Epithelial Cell Urine 0-4 (0-5); THC Screen Urine Negative (Negative)
[2020-01-23] MEDS: sodium chloride 0.9% 1,000 ML 999 ML IV (17:27)
[2020-01-23] MEDS: cefTRIAXone 1,000 MG in sodium chloride 0.9% (plus) 50 ML 100 MG IV (18:03)
--- NOTE | 2020-01-23 18:04 | ECG_ITS ---
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 Measurements Intervals [place] Rate: 84 P: 46 NH: 177 QRS: -26 QRSD: 89 T: 54 QT: 376 QTc: 447 Interpretive Statements SINUS RHYTHM POSSIBLE RIGHT VENTRICULAR CONDUCTION DELAY [RSR (QR) IN V1/V2] MINIMAL VOLTAGE CRITERIA FOR LVH, CONSIDER NORMAL VARIANT [MEETS CRITERIA IN ONE OF: R(aVL), S(V1), R(V5), R(V5/V6)+S(V1)] POSSIBLE ANTERIOR MYOCARDIAL INFARCTION , OF INDETERMINATE AGE [30 ms Q WAVE IN V3/V4, OR R < 0.2 mV IN V4] Compared to ECG 01/23/2020 16:39:49 No significant changes Electronically Signed On 01-23-2020 20:46:21 CDT by Sandeep Espinoza M.D. [id number]
--- NOTE | 2020-01-23 18:30 | P.HP_ITS ---
Providers/Chief Complaint Primary Care Provider: Pilo Alexis MD Chief Complaint: AMS History of Present Illness Melba Newman is a 74 year old female presents to emergency department via EMS at the request of patient's daughter for patient being confused. During my evaluation in emergency department patient does not know where she is and what she is doing here in the hospital when told. She denies any complaints on review of system except having frequent fevers and chills recently. She reports being blind when asked about her vision. Reports that at home she ambulates with a walker. She was oriented only to self. Reports that she is living with her and daughter Daphne. In emergency department patient was found to have significant pyuria. When told about urinary tract infection she reports that she has them very frequently and that she does not want to have them anymore. Review of Systems Const: Reports: fever(s) and chills Eyes: Denies: change in vision ENMT: Denies: throat pain or change in hearing Card: Denies: chest pain, edema or lightheadedness Resp: Denies: dyspnea or productive cough GI: Denies: abdominal pain, nausea, vomiting, dysphagia, diarrhea, constipation, hematochezia or melena (She denied but also reports that she cannot see.) : Denies: difficulty voiding Musc: Denies: joint pain or joint swelling Skin/Breast: Denies: rash or erythema Neuro: Denies: headache(s) or weakness in extremities Psych: Denies: depression Endo: Denies: excessive sweating Man/Lymph: Denies: easy bleeding or tender lymph nodes All/Imm: Denies: throat swelling Medications/Allergies Home Medications Medication Instructions Recorded Confirmed Last Taken Type omeprazole 20 mg capsule,delayed 20 mg PO DAILY #30 cap 09/21/19 01/23/20 01/10/20 Rx release levothyroxine 150 mcg capsule 150 mcg PO DAILY #30 cap 09/28/19 01/23/20 01/10/20 Rx liraglutide 0.6 mg/0.1 mL (18 mg/3 1.8 mg SUBCUT Q24H #9 ml 09/28/19 01/23/20 01/10/20 Rx mL) subcutaneous pen injector ferrous sulfate 325 mg (65 mg 325 mg PO DAILY #30 tab 10/16/19 01/23/20 01/10/20 Rx iron) tablet pen needle, diabetic 31 gauge x #100 each 10/16/19 01/23/20 Unknown Rx 11/10 insulin lispro [Humalog KwikPen See Rx Instructions .ROUTE .COMPLEX 11/30/19 01/23/20 01/10/20 History Insulin] gabapentin 400 mg PO TID 12/11/19 01/23/20 01/10/20 History oxybutynin chloride 5 mg PO DAILY 12/11/19 01/23/20 01/10/20 History albuterol sulfate 90 mcg/actuation 2 puff INHALATION Q6H PRN #8.5 gm 12/14/19 01/23/20 01/10/20 Rx aerosol inhaler allopurinol 100 mg tablet 100 mg PO DAILY #30 tab 12/14/19 01/23/20 01/10/20 Rx Lantus U-100 Insulin 10 unit SUBCUT BID #0 ml 12/21/19 01/23/20 01/10/20 Rx Xifaxan 550 mg PO DAILY 01/03/20 01/23/20 01/10/20 History duloxetine [Cymbalta] 30 mg PO BID 01/03/20 01/23/20 01/10/20 History amlodipine 5 mg PO DAILY 01/04/20 01/23/20 01/10/20 History lactulose 20 g PO Q6H PRN 01/04/20 01/23/20 01/03/20 History metoprolol tartrate 12.5 mg PO BID 01/04/20 01/23/20 01/10/20 History hydrocodone 5 mg-acetaminophen 325 1 tab PO Q8H PRN 30 Days #90 tab 01/18/20 Unknown Rx mg tablet Allergies Allergy/AdvReac Type Severity Reaction Status Date / Time celecoxib [From Celebrex] Allergy Intermediate confusion Verified 01/18/20 15:02 meperidine [From Demerol] Allergy Unknown Verified 01/18/20 15:02 theophylline Allergy Unknown Verified 01/18/20 15:02 PFSH Acute PFSH: Medical History (Updated 01/23/20 @ 19:02 by Luis Eduardo Arguello MD) Chronic kidney disease, stage III (moderate) Cirrhosis of liver COPD (chronic obstructive pulmonary disease) Dementia without behavioral disturbance Diabetes mellitus Fibromyalgia Frailty GERD (gastroesophageal reflux disease) Hypertension Normocytic anemia Obstructive pyelonephritis Recurrent UTI Retained ureteral stent Surgical History H/O eye surgery S/P cataract extraction S/P cholecystectomy Status post carpal tunnel release of both wrists Family History Other Cancer Diabetes Heart disease Social History Smoking and tobacco status: never smoked Alcohol intake: never Marital status: / Current occupational status: retired History of recent travel: No Current gender identity: Female Vitals/I&O/Wt Last Vital Signs Temp 98.4 F 01/23/20 15:44 Pulse 91 01/23/20 15:44 Resp 20 H 01/23/20 15:44 BP 151/73 01/23/20 15:44 Pulse Ox 95 01/23/20 15:44 Weight last 48 hrs Weight 90.718 kg Physical Exam Const: COMMON NORMALS: no acute distress; negative for patient oriented x3 (Oriented to self) and negative for alert (Appears somewhat lethargic) OTHER: Mucous membranes are very dry. HENMT: COMMON NORMALS: normocephalic and atraumatic HEAD & SCALP: normocephalic and atraumatic Eye: COMMON NORMALS: EOMs intact bilaterally, conjunctivae normal and no scleral icterus CONJUNCTIVA: Yes conjunctivae normal Neck/C-Spine: COMMON NORMALS: no lymphadenopathy and no meningeal signs Lymph: LYMPHATIC: no lymphadenopathy noted Chest: COMMONS NORMALS: normal palpation of entire chest wall Resp: COMMON NORMALS: No use of accessory muscles and clear to auscultation bilaterally AUSCULTATION: clear to auscultation bilaterally Cardio: COMMON NORMALS: regular rate, regular rhythm and No murmurs present (Cardio) RATE: regular rate RHYTHM: regular rhythm OTHER: No lower extremity edema GI: COMMON NORMALS: Soft to palpation and non-tender PALPATION: Yes Soft to palpation RECTAL EXAM: deferred OTHER: Small umbilical hernia noted. : COMMON NORMALS: No no CVA tenderness (Patient has right CVA tenderness but not left) Back/Pelvis: COMMON NORMALS: thoracic and lumbar spine normal to inspection Extremity: COMMON NORMALS: normal to inspection and capillary refill normal Neuro: COMMON NORMALS: no focal motor deficits SENSORIUM/ORIENTATION: Yes alert MENINGEAL SIGNS: Yes no meningeal signs Psych: COMMON NORMALS: cooperative OTHER: Lethargic and somewhat confused. Answers some questions appropriately. Skin: COMMON NORMALS: no rashes or lesions noted GENERAL SKIN EXAM: no rashes or lesions noted (Except very minimal inguinal fold erythema) Data : 01/23/20 16:26 01/23/20 16:26 A&P Assessment and plan (1) Dehydration with hyponatremia: Status: Acute (2) Chronic kidney disease, stage III (moderate): Status: Acute (3) Normocytic anemia: Status: Acute (4) Hyperammonemia: Status: Acute (5) DM2 (diabetes mellitus, type 2): Status: Acute (6) Dementia without behavioral disturbance: Status: Acute (7) Altered mental status: Mild toxic metabolic encephalopathy including hepatic encephalopathy is very likely. Status: Acute Qualifiers: Altered mental status type: delirium Qualified Code(s): R41.0 - Dis orientation, unspecified (8) Cirrhosis of liver: Status: Acute (9) Hypothyroidism: Status: Acute Additional A&P Information Given previous history of ESBL infection as well as Enterococcus faecalis will start patient on Primaxin and Vancomycin. Gentle IV hydration with monitoring of urinary output. Patient does not meet sepsis criteria. Will admit to [facility]. We will start lactulose and repeat ammonia in a.m. Physical and occupational therapy. Attestations Medical Necessity Statement*: Patient was encephalopathy and severe UTI requires close inpatient monitoring and treatment. I expect patient will require more than 2 midnights. Time Spent in Patient Care: Greater than 35 minutes Coding Level of Care Code Acute Program Arranger for [facility] Diagnoses Dehydration with hyponatremia E86.0; E87.1 Chronic kidney disease, stage III (moderate) N18.3 Normocytic anemia D64.9 Hyperammonemia E72.20 DM2 (diabetes mellitus, type 2) E11.9 Dementia without behavioral disturbance F03.90 Altered mental status R41.0 Altered mental status type: delirium Cirrhosis of liver K74.60 Hypothyroidism E03.9
[2020-01-23 18:44] VITALS: BP 141/86; PULSE 82; RESP 18; O2SAT 97
--- NOTE | 2020-01-23 19:04 | PC.NURSE ---
Patient report received from SOULEYMANE Ventura and care transferred to SOULEYMANE Medel
[2020-01-23 19:09] LABS: Lactate (Lactic Acid level) 1.4 mmol/L (0.5-2.2)
[2020-01-23 19:13] LABS: Troponin 5 2HR 11.28 ng/L (0-10)
[2020-01-23 19:22] VITALS: BP 159/70; PULSE 82; RESP 17; O2SAT 98
[2020-01-23 19:28] LABS: Troponin 5 2HR Delta -1.72 ABS# (0-10)
[2020-01-23 20:00] VITALS: BP 136/68; PULSE 89; RESP 18; TEMP 36.5; O2SAT 99
[2020-01-23 20:46] LABS: Glucose Point of Care 131 mg/dL (70-110)
[2020-01-23 20:50] VITALS: PULSE 86; RESP 17; O2SAT 98
[2020-01-23] MEDS: enoxaparin 30 mg/0.3 mL Syringe SUBCUT (21:58)
[2020-01-23] MEDS: sennosides 8.6 mg Tablet 17.2 MG PO (21:59)
[2020-01-23] MEDS: gabapentin 400 mg Capsule PO (21:59)
[2020-01-23] MEDS: lactated ringers 1,000 ML 50 ML IV (22:00)
[2020-01-23] MEDS: lactulose oral liq 20 gm/30 mL UDC PO (22:01)
[2020-01-23] MEDS: lactulose oral liq 20 gm/30 mL UDC 30 GM PO (22:01)
--- NOTE | 2020-01-23 22:04 | ECG_ITS ---
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 Measurements Intervals [place] Rate: 87 P: 51 WI: 194 QRS: -28 QRSD: 88 T: 66 QT: 365 QTc: 441 Interpretive Statements SINUS RHYTHM BORDERLINE LEFT AXIS DEVIATION [QRS AXIS < -20] LOW QRS VOLTAGE IN PRECORDIAL LEADS [QRS DEFLECTION < 1.0 mV IN CHEST LEADS] NONSPECIFIC T-WAVE ABNORMALITY Compared to ECG 01/23/2020 18:12:32 Low QRS voltage now present T-wave abnormality now present Myocardial infarct finding no longer present Electronically Signed On 01-25-2020 0:25:12 CDT by Paxton Kong M.D. [id number]
[2020-01-23 22:24] LABS: Troponin 5 6HR 13.71 ng/L (0-10); Troponin 5 6HR Delta 0.71 ng/L (0-12)
--- NOTE | 2020-01-23 23:47 | PC.NURSE ---
Spoke with Pt's daughter Cristela regarding Pts status.
[2020-01-24] VITALS (8 sets, daily range): BP systolic 117–149; BP diastolic 61–78; PULSE 76–96; RESP 18–20; TEMP 36.3–36.7; O2SAT 98–100
[2020-01-24 04:36] LABS: Basophils % 0.3 %; Eosinophils # 0.3 10^3/uL (0.0-0.8); Eosinophils % 5.1 %; Hematocrit 29.9 % (37.0-47.0); Hemoglobin 9.1 g/dL (11.5-15.3); Lymphocytes # 1.8 10^3/uL (0.8-4.8); Lymphocytes % 31.1 %; Mean Corpuscular HGB Conc 30.4 g/dL (30.0-36.0); Mean Platelet Volume 9.3 fL (7.4-10.4); Monocytes # 0.4 10^3/uL (0.2-0.9); Monocytes % 7.3 %; Neutrophils % 55.9 %; Nucleated Red Blood Cells % 0 %; Platelet Count 298 10^3/cmm (130-400); Red Blood Count 3.25 10^6/uL (4.1-5.3); Red Cell Distribution Width 16.9 % (12.1-15.1); White Blood Count 5.9 10^3/uL (4.0-10.0)
[2020-01-24 04:53] LABS: Ammonia 159 umol/L (11-51)
[2020-01-24 04:58] LABS: Alanine Aminotransferase 18 U/L (0-33); Albumin Level 2.9 g/dL (3.5-5.2); Alkaline Phosphatase 252 IU/L (35-105); Anion Gap 15.7 (5-19); Aspartate Amino Transferase 39 U/L (0-32); Blood Urea Nitrogen 32 mg/dL (8-23); Calcium 8.9 mg/dL (8.5-10.5); Carbon Dioxide 20 mmol/L (22-29); Chloride 109 mmol/L (98-107); Globulin 5.9 g/dL (1.3-4.6); Glucose 97 mg/dL (65-115); Osmolality Calculated 289 mOsm/kg (285-295); Potassium 3.7 mmol/L (3.5-5.1); Sodium 141 mmol/L (136-145); Total Bilirubin 0.5 mg/dL (0.15-1.2); Total Protein 8.8 g/dL (6.6-8.7)
[2020-01-24] MEDS: albuterol 8 gm MDI 2 PUFF INHALATION (07:57)
[2020-01-24] MEDS: levothyroxine 150 mcg Tablet PO (08:36)
[2020-01-24] MEDS: gabapentin 400 mg Capsule PO ×3 (08:37→20:04)
[2020-01-24] MEDS: duloxetine 30 mg Capsule PO ×2 (08:37→18:12)
[2020-01-24] MEDS: metoprolol tartrate 25 mg Tablet 12.5 MG PO ×2 (08:37→18:12)
[2020-01-24] MEDS: pantoprazole DR 40 mg Tablet PO (08:37)
[2020-01-24] MEDS: allopurinol 100 mg Tablet PO (08:38)
[2020-01-24] MEDS: amlodipine 5 mg Tablet PO (08:38)
[2020-01-24] MEDS: lactulose oral liq 20 gm/30 mL UDC 30 GM PO ×3 (08:38→20:05)
[2020-01-24] MEDS: insulin glargine 100 units/1 mL 10 UNIT SUBCUT ×2 (08:46→18:12)
--- NOTE | 2020-01-24 12:55 | PC.RESP ---
PULMONARY REHAB INFORMATION SENT TO PATIENT.
--- NOTE | 2020-01-24 13:42 | PC.NURSE ---
Senior Sustainability Consultant tried to call pt family no answer and unable to leave a message.
--- NOTE | 2020-01-24 15:36 | P.PN_ITS ---
Subjective Subjective: Interval history: Patient is doing much better this morning. She was oriented to self and place. Still have some episodes of confusion but much clearer compared to yesterday. Denies shortness of breath or chest pain. Ammonia level increased although patient reports that she had bowel movement yesterday. Vitals/I&O/Wt Last Vital Signs Temp 98.0 F 01/24/20 10:57 Pulse 87 01/24/20 10:57 Resp 18 01/24/20 10:57 BP 129/73 01/24/20 10:57 Pulse Ox 98 01/24/20 10:57 01/24/20 01/24/20 01/24/20 06:59 14:59 22:59 Intake Total 100 / 1250 540 / 540 Output Total 650 / 650 1500 / 1500 Balance -550 / 600 -960 / -960 Weight last 48 hrs Weight 90.718 kg Physical Exam Const: COMMON NORMALS: no acute distress and patient oriented x3 Resp: COMMON NORMALS: normal respiratory effort and clear to auscultation bilaterally AUSCULTATION: clear to auscultation bilaterally Cardio: COMMON NORMALS: regular rate, regular rhythm and S2 normal heart sound present RATE: regular rate RHYTHM: regular rhythm HEART SOUNDS: S2 normal heart sound present OTHER: No lower extremity edema GI: COMMON NORMALS: Normal to inspection, nondistended, normoactive bowel sounds present, Soft to palpation and non-tender PALPATION: Yes Soft to palpation Neuro: COMMON NORMALS: patient oriented x3 and no focal motor deficits Urinary Catheter Management^: Chow: Cath Placed During This Visit: yes Reason for Continuing Indwelling Catheter: Acute Urinary Retention or Obstruction Urinary Catheter Date of Insertion: 01/23/20 Urinary Catheter Time of Insertion: 21:41 Data : 01/24/20 04:25 01/24/20 04:25 Micro: Microbiology 01/23/20 18:50 Blood Culture - Preliminary Blood SPECIMEN COLLECTED 01/23/20 18:49 Blood Culture - Preliminary Blood SPECIMEN COLLECTED A&P Assessment and plan (1) Dehydration with hyponatremia: Status: Acute (2) Chronic kidney disease, stage III (moderate): Status: Acute (3) Normocytic anemia: Status: Acute (4) Hyperammonemia: Status: Acute (5) DM2 (diabetes mellitus, type 2): Status: Acute (6) Dementia without behavioral disturbance: Status: Acute (7) Altered mental status: Mild toxic metabolic encephalopathy including hepatic encephalopathy is very likely. Status: Acute Qualifiers: Altered mental status type: delirium Qualified Code(s): R41.0 - Disorientation, unspecified (8) Cirrhosis of liver: Status: Acute (9) Hypothyroidism: Status: Acute Additional A&P Information Continue current monitoring and treatment including standing lactulose. We will add trazodone to help with sleep at night. Attestations Medical Necessity Statement*: Patient with severe UTI and altered mental status requires close inpatient monitoring and treatment. Time Spent in Patient Care: 16 - 35 minutes Coding Level of Care Code Acute Hot Plate Plywood Press Offbearer for g Fwd Diagnoses Dehydration with hyponatremia E86.0; E87.1 Chronic kidney disease, stage III (moderate) N18.3 Normocytic anemia D64.9 Hyperammonemia E72.20 DM2 (diabetes mellitus, type 2) E11.9 Dementia without behavioral disturbance F03.90 Altered mental status R41.0 Altered mental status type: delirium Cirrhosis of liver K74.60 Hypothyroidism E03.9
[2020-01-24] MEDS: HYDROcodone-acetaminophen 5-325 mg Tablet 1 TAB PO (15:43)
[2020-01-24] MEDS: enoxaparin 30 mg/0.3 mL Syringe SUBCUT (19:45)
[2020-01-24] MEDS: sennosides 8.6 mg Tablet 17.2 MG PO (20:07)
[2020-01-24] MEDS: OLANZapine 10 mg VIAL IM (23:25)
[2020-01-25] VITALS (9 sets, daily range): BP systolic 120–142; BP diastolic 66–76; PULSE 78–102; RESP 17–20; TEMP 36.6–36.9; O2SAT 95–99
[2020-01-25] MEDS: lactated ringers 1,000 ML 50 ML IV (02:23)
[2020-01-25 03:49] LABS: Basophils % 0.4 %; Eosinophils # 0.3 10^3/uL (0.0-0.8); Eosinophils % 6.7 %; Hematocrit 32.4 % (37.0-47.0); Hemoglobin 9.9 g/dL (11.5-15.3); Lymphocytes # 2.1 10^3/uL (0.8-4.8); Lymphocytes % 43.9 %; Mean Corpuscular HGB Conc 30.6 g/dL (30.0-36.0); Mean Corpuscular Hemoglobin 28.4 pg (28.0-34.0); Mean Corpuscular Volume 93.1 fL (81-99); Mean Platelet Volume 9.7 fL (7.4-10.4); Monocytes # 0.5 10^3/uL (0.2-0.9); Monocytes % 10.8 %; Neutrophils # 1.83 10^3/uL (1.8-7.7); Nucleated Red Blood Cells % 0 %; Platelet Count 326 10^3/cmm (130-400); Red Blood Count 3.48 10^6/uL (4.1-5.3); White Blood Count 4.8 10^3/uL (4.0-10.0)
[2020-01-25 04:06] LABS: Alanine Aminotransferase 21 U/L (0-33); Albumin Level 3.2 g/dL (3.5-5.2); Alkaline Phosphatase 281 IU/L (35-105); Anion Gap 13.8 (5-19); Aspartate Amino Transferase 44 U/L (0-32); Blood Urea Nitrogen 25 mg/dL (8-23); Calcium 8.7 mg/dL (8.5-10.5); Carbon Dioxide 18 mmol/L (22-29); Chloride 102 mmol/L (98-107); Globulin 6.9 g/dL (1.3-4.6); Glucose 275 mg/dL (65-115); Osmolality Calculated 277 mOsm/kg (285-295); Potassium 3.8 mmol/L (3.5-5.1); Sodium 130 mmol/L (136-145); Total Bilirubin 0.5 mg/dL (0.15-1.2); Total Protein 10.1 g/dL (6.6-8.7)
[2020-01-25 04:07] LABS: Ammonia 118 umol/L (11-51)
[2020-01-25] MEDS: albuterol 8 gm MDI 2 PUFF INHALATION (07:36)
[2020-01-25] MEDS: lactulose oral liq 20 gm/30 mL UDC 30 GM PO ×3 (08:22→20:24)
[2020-01-25] MEDS: metoprolol tartrate 25 mg Tablet 12.5 MG PO ×2 (08:22→17:38)
[2020-01-25] MEDS: amlodipine 5 mg Tablet PO (08:23)
[2020-01-25] MEDS: pantoprazole DR 40 mg Tablet PO (08:23)
[2020-01-25] MEDS: gabapentin 400 mg Capsule PO ×3 (08:23→20:24)
[2020-01-25] MEDS: duloxetine 30 mg Capsule PO ×2 (08:24→17:38)
[2020-01-25] MEDS: levothyroxine 150 mcg Tablet PO (08:24)
[2020-01-25] MEDS: allopurinol 100 mg Tablet PO (08:24)
[2020-01-25] MEDS: HYDROcodone-acetaminophen 5-325 mg Tablet 1 TAB PO (08:28)
--- NOTE | 2020-01-25 11:15 | PC.CHAP ---
Pastoral Care Encounter/Spiritual Assessment Type of Contact [] Declined beauty culturist visit [] Patient/Family/Request visit [] Outpatient visit [] Follow-up visit [] Physician referral [] Code/Alert [x] Routine visit [] Staff referral [] Actively dying [] Patient sleeping [] Family support [] [] Out of room [] Palliative care [] [] Receiving care in room [] Pre-surgical visit [] Trauma [] Long length of stay [] ICU visit [] Other: Relational/Emotional Strength [x] Patient feels connected with others/family/visitors/staff [] Distress [] Loneliness/isolation [] Abandonment Spirituality of Patient [x] Person of Rhea [] Attends Restoration of their Rhea [] Believes in Prayer [] Reads Bible or Bahai materials [] There are Spiritual issues to be addressed Entry Level Staff Accountant Interventions [x] Prayer [x] Active listening [x] Non-anxious presence [x] Spiritual/emotional support [] Crisis/trauma care [] Spiritual counseling [] Bereavement support [] Provided bereavement packet [] Provided Bible/devotional materials [] Provided toy/stuffed animal, coloring book to patient or family member [] Provided Communion [] Anointing/[place] [] Salvation [x] Completed spiritual assessment [] Other: Impact on Illness or Injury [] Angry [] Fearful [] Anxious [] Often cries [] Exhaustion [] Unable to work [] Unable to attend rastafarian [] Unable to walk/stand [] Unable to read [] Unable to drive [] Unable to eat/drink [] Unable to sleep [] Unable to be with family [] Patient intubated [x] Other: Summary Patient mental recollection seemed to be challenged in her ability to communicate clearly. Prayer provided. Time spent with patient 5 minutes
--- NOTE | 2020-01-25 15:41 | PM.PN ---
Subjective Subjective: Interval history: Patient is doing much better this afternoon. She is alert and oriented to self. She reports feeling well and wants to go home. We could not get in touch with patient's family to arrange discharge. Her urine is growing Enterococcus faecalis susceptible to ampicillin. She keeps pulling her IV line and earlier today we will switch to oral ampicillin. Vitals/I&O/Wt Last Vital Signs Temp 97.9 F 01/25/20 15:27 Pulse 81 01/25/20 15:27 Resp 20 H 01/25/20 15:27 BP 132/76 01/25/20 15:27 Pulse Ox 97 01/25/20 15:27 01/25/20 01/25/20 01/25/20 06:59 14:59 22:59 Intake Total 560 / 2200 850 / 850 Output Total 2500 / 5500 Balance -1940 / -3300 850 / 850 Weight last 48 hrs Weight 90.718 kg Physical Exam Const: COMMON NORMALS: no acute distress Resp: COMMON NORMALS: normal respiratory effort and clear to auscultation bilaterally AUSCULTATION: clear to auscultation bilaterally Cardio: COMMON NORMALS: regular rate, regular rhythm and S2 normal heart sound present RATE: regular rate RHYTHM: regular rhythm HEART SOUNDS: S2 normal heart sound present OTHER: No lower extremity edema GI: COMMON NORMALS: Normal to inspection, nondistended, normoactive bowel sounds present, Soft to palpation and non-tender PALPATION: Yes Soft to palpation Neuro: COMMON NORMALS: no focal motor deficits OTHER: Oriented to self and place. Urinary Catheter Management^: Chow: Cath Placed During This Visit: yes Reason for Continuing Indwelling Catheter: Acute Urinary Retention or Obstruction Urinary Catheter Date of Insertion: 01/23/20 Urinary Catheter Time of Insertion: 21:41 Data : 01/25/20 03:18 01/25/20 03:18 Micro: Microbiology 01/23/20 16:35 Urine Culture - Preliminary Urine,Clean Catch Enterococcus species 01/23/20 18:50 Blood Culture - Preliminary Blood NEGATIVE TO DATE 01/23/20 18:49 Blood Culture - Preliminary Blood NEGATIVE TO DATE A&P Assessment and plan (1) Dehydration with hyponatremia: Status: Acute (2) Chronic kidney disease, stage III (moderate): Status: Acute (3) Normocytic anemia: Status: Acute (4) Hyperammonemia: Status: Acute (5) DM2 (diabetes mellitus, type 2): Status: Acute (6) Dementia without behavioral disturbance: Status: Acute (7) Altered mental status: Mild toxic metabolic encephalopathy including hepatic encephalopathy is very likely. Status: Acute Qualifiers: Altered mental status type: delirium Qualified Code(s): R41.0 - Disorientation, unspecified (8) Cirrhosis of liver: Status: Acute (9) Hypothyroidism: Status: Acute Additional A&P Information Continue amoxicillin and remove Chow catheter to make sure patient can urinate. We will try to get in touch with patient's family to arrange discharge tomorrow morning. Attestations Medical Necessity Statement*: Patient with significant UTI and encephalopathy requires close inpatient monitoring and treatment until deemed safe for discharge. Time Spent in Patient Care: 16 - 35 minutes Coding Level of Care Code Acute Plastic Extruding Machine Operator for [facility] Fwd Diagnoses Dehydration with hyponatremia E86.0; E87.1 Chronic kidney disease, stage III (moderate) N18.3 Normocytic anemia D64.9 Hyperammonemia E72.20 DM2 (diabetes mellitus, type 2) E11.9 Dementia without behavioral disturbance F03.90 Altered mental status R41.0 Altered mental status type: delirium Cirrhosis of liver K74.60 Hypothyroidism E03.9
[2020-01-25] MEDS: amoxicillin 500 mg Capsule 1000 MG PO (17:37)
[2020-01-25] MEDS: insulin glargine 100 units/1 mL 10 UNIT SUBCUT (17:44)
[2020-01-25] MEDS: sennosides 8.6 mg Tablet 17.2 MG PO (20:24)
[2020-01-25] MEDS: enoxaparin 30 mg/0.3 mL Syringe SUBCUT (20:24)
[2020-01-25 20:53] LABS: Vancomycin Trough 20.3 ug/mL (10-15)
[2020-01-26] VITALS (10 sets, daily range): BP systolic 118–151; BP diastolic 57–72; PULSE 94–108; RESP 17–24; TEMP 37–37.8; O2SAT 94–97
[2020-01-26 05:24] LABS: Basophils % 0.4 %; Eosinophils # 0.3 10^3/uL (0.0-0.8); Eosinophils % 6.1 %; Hematocrit 27.4 % (37.0-47.0); Lymphocytes % 43.7 %; Mean Corpuscular HGB Conc 29.2 g/dL (30.0-36.0); Mean Corpuscular Hemoglobin 27.7 pg (28.0-34.0); Mean Corpuscular Volume 94.8 fL (81-99); Mean Platelet Volume 9.7 fL (7.4-10.4); Monocytes # 0.5 10^3/uL (0.2-0.9); Monocytes % 10.9 %; Neutrophils # 1.77 10^3/uL (1.8-7.7); Neutrophils % 38.7 %; Nucleated Red Blood Cells % 0 %; Platelet Count 288 10^3/cmm (130-400); Red Blood Count 2.89 10^6/uL (4.1-5.3); Red Cell Distribution Width 17.1 % (12.1-15.1); White Blood Count 4.6 10^3/uL (4.0-10.0)
[2020-01-26 05:35] LABS: Ammonia 76 umol/L (11-51)
[2020-01-26 05:38] LABS: Alanine Aminotransferase 17 U/L (0-33); Albumin Level 2.9 g/dL (3.5-5.2); Alkaline Phosphatase 265 IU/L (35-105); Aspartate Amino Transferase 33 U/L (0-32); Blood Urea Nitrogen 27 mg/dL (8-23); Carbon Dioxide 19 mmol/L (22-29); Chloride 104 mmol/L (98-107); Glucose 431 mg/dL (65-115); Magnesium 2.1 mg/dL (1.7-2.3); Osmolality Calculated 289 mOsm/kg (285-295); Sodium 132 mmol/L (136-145); Total Bilirubin 0.6 mg/dL (0.15-1.2); Total Protein 8.9 g/dL (6.6-8.7)
[2020-01-26 07:33] LABS: Glucose Point of Care 387 mg/dL (70-110)
--- NOTE | 2020-01-26 08:02 | PC.NURSE ---
DR CARBALLO NOTIFIED DUE TO PT BEING LETHARGIC. PHYSICIAN BELIEVED THIS IS DUE TO MEDICATION AND TO MONITOR PT FOR ANY CHANGES, NOTIFY IN 2 HOURS IF PT HAS NOT BECOME MORE ALERT. HARIS ORDERED FOR BLADDER TO BE IRRIGATED AND THEN CHENEY REMOVED..
[2020-01-26 08:32] LABS: ABG PCO2 37.1 mmHg (35-45); ABG PH Result 7.35 (7.35-7.45); Base Excess ABG -4.5 mmol/L (-2.0-2.0); HCO3 ABG 20.6 mmol/L (22-26); Oxygen Saturation ABG 96.3; PO2 ABG 77.7 mmHg (80.0-100.0)
[2020-01-26 08:33] LABS: Blood Gas Drawn By HARKR; Blood Gas Operator Identificat HARKR; Blood Gas Sample Type ARTERIAL; Oxygen Device NC
[2020-01-26 08:34] LABS: Arterial Blood Gas Hematocrit 27.5 % (37-47); Ionized Calcium Level - ABG 1.2 mmol/L (1.1-1.4)
[2020-01-26 08:35] LABS: Carboxyhemoglobin 1.1 %THgb (0.4-20.1); HGB O2 Sat 94.3 % (95-100)
[2020-01-26] MEDS: ipratropium-albuterol 3 mL Neb INHALATION (09:25)
[2020-01-26] MEDS: insulin glargine 100 units/1 mL 10 UNIT SUBCUT (12:20)
--- NOTE | 2020-01-26 14:36 | PC.NURSE ---
CALLED DAUGHTER DUE TO POSSIBLE DISCHARGE THIS AFTERNOON, DAUGHTER QUESTIONED IF THE PT SHOULD COME HOME DUE TO THE DAUGHTER HAVING A SORE THROAT, RUNNY NOSE, AND POSSIBLE TEMP, HER HUSBANDS FRIEND ALSO IS PENDING COVID RESULTS THAT HE WORKS WITH, DAUGHTER REFUSED TO HAVE PT SENT TO THE [facility]. DR CARBALLO NOTIFIED.
--- NOTE | 2020-01-26 14:49 | P.DS_ITS ---
Discharge Providers Date of Admission: 01/23/20 19:37 Date of Discharge: January 26, 2020 Attending Provider at Admission: Luis Eduardo Arguello MD Attending Provider at Discharge: Luis Eduardo Arguello MD Primary Care Provider: Pilo Alexis MD Diagnoses at Discharge Discharge Diagnosis (1) Dehydration with hyponatremia: Status: Acute (2) Chronic kidney disease, stage III (moderate): Status: Acute (3) Normocytic anemia: Status: Acute (4) Hyperammonemia: Status: Acute (5) DM2 (diabetes mellitus, type 2): Status: Acute (6) Dementia without behavioral disturbance: Status: Acute (7) Altered mental status: Status: Acute Qualifiers: Altered mental status type: delirium Qualified Code(s): R41.0 - Disorientation, unspecified (8) Cirrhosis of liver: Status: Acute (9) Hypothyroidism: Status: Acute Reason for Visit Reason for Visit: [facility] Hospital Course Discharge Summary: Patient with underlying dementia presented with altered mental status secondary to toxic metabolic encephalopathy including hepatic encephalopathy. Patient was found to have urinary tract infection. She was dehydrated and treated with IV fluids. She was treated with antibiotics and gradually improved. Her urine grew Enterococcus faecalis and antibiotics were switched to ampicillin. She tolerates antibiotic well. She was quite somnolent this morning and I think because patient did not sleep well during nighttime because of unfamiliar environment. This afternoon patient much improved and was able to eat her meals. She denied any complaints including shortness of breath or chest pain. Denies abdominal pain. She is oriented to self and place. Patient's daughter initially had concern of 1 of the family members possibly being infected was called with and therefore we have recommended for patient to be placed to nursing facility for now but daughter did not want to do that and wants patient to go home. Patient will need to take lactulose 3 times daily to be titrated for 2-3 soft bowel movements per day I will discontinue oxybutynin which is likely playing a role in patient's UTI. Home health was offered to patient's daughter but she does not think patient needs. Physical Exam Const: COMMON NORMALS: no acute distress OTHER: Alert and oriented to self and place. Answers simple questions appropriately and follows commands. Resp: COMMON NORMALS: normal respiratory effort and clear to auscultation bilaterally AUSCULTATION: clear to auscultation bilaterally Cardio: COMMON NORMALS: regular rate, regular rhythm and S2 normal heart sound present RATE: regular rate RHYTHM: regular rhythm HEART SOUNDS: S2 normal heart sound present OTHER: No lower extremity edema GI: COMMON NORMALS: Normal to inspection, nondistended, normoactive bowel sounds present, Soft to palpation and non-tender PALPATION: Yes Soft to palpation Neuro: COMMON NORMALS: no focal motor deficits Urinary Catheter Management^: Chow: Cath Placed During This Visit: yes, but has since been removed by the nurse Reason for Continuing Indwelling Catheter: Acute Urinary Retention or Obstruction Urinary Catheter Date of Insertion: 01/23/20 Urinary Catheter Time of Insertion: 21:41 Date Urinary Catheter Removed: 01/26/20 Time Urinary Catheter Discontinued: 08:47 Discharge Data Data Completed and Pending: Completed Studies During Hospitalization Category Date Time Status CT head wo con* 7 [id number] Urgent Cat Scan 01/23/20 16:04 Completed XR chest 1V sarina ble [id number] Urgent Exams 01/23/20 16:02 Completed Pending at discharge Category Date Time Status ABG FULL [Arteria l Blood Gas Full] Stat Lab 01/26/20 06:34 Results Blood Culture Sta t Lab 01/23/20 18:50 Results Labs from last 24 hours 01/26/20 01/26/20 01/26/20 07:29 06:34 04:56 WBC RBC Hgb Hct MCV MCH MCHC RDW Plt Count MPV Neut % (Auto) Lymph % (Auto) [place] % (Auto) Eos % (Auto) Baso % (Auto) Neut # (Auto) Lymph # (Auto) [place] # (Auto) Eos # (Auto) Baso # (Auto) Nucleated RBC % (a uto) Nucleated RBCs # Specimen Type Arterial Sample Site Brachial, right ABG pH 7.35 ABG pCO2 37.1 ABG pO2 77.7 L ABG HCO3 20.6 L ABG O2 Saturation 96.3 ABG Base Excess -4.5 L Manoj Test Not Reportable A-a O2 Gradient Pending Hematocrit 27.5 L Hgb O2 Saturation 94.3 L Carboxyhemoglobin 1.1 Methemoglobin 1.0 Total Hemoglobin 9.0 L Ionized Calcium 1.2 O2 Delivery Device Nc O2 Liters/Min 2.0 FiO2 28.0 Specimen Drawn By Harkr Rectification Printer ID Harkr Sodium Pending 132 L Potassium Pending 4.0 Chloride 104 Carbon Dioxide 19 L Anion Gap 13.0 BUN 27 H Creatinine 1.7 H GFR Calculation Not Reportable Glucose 394.0 H 431 H POC Glucose 387 Calculated Osmolal ity 289 Calcium 9.0 Magnesium 2.1 Total Bilirubin 0.6 AST 33 H ALT 17 Alkaline Phosphata se 265 H Ammonia Total Protein 8.9 H Albumin 2.9 L Globulin 6.0 H Vancomycin Trough 01/26/20 01/26/20 01/25/20 04:56 04:56 19:35 WBC 4.6 RBC 2.89 L Hgb 8.0 L Hct 27.4 L MCV 94.8 MCH 27.7 L MCHC 29.2 L RDW 17.1 H Plt Count 288 MPV 9.7 Neut % (Auto) 38.7 Lymph % (Auto) 43.7 [place] % (Auto) 10.9 Eos % (Auto) 6.1 Baso % (Auto) 0.4 Neut # (Auto) 1.77 L Lymph # (Auto) 2.0 [place] # (Auto) 0.5 Eos # (Auto) 0.3 Baso # (Auto) 0.0 Nucleated RBC % (a uto) 0 Nucleated RBCs # 0.0 Specimen Type Sample Site ABG pH ABG pCO2 ABG pO2 ABG HCO3 ABG O2 Saturation ABG Base Excess Manoj Test A-a O2 Gradient Hematocrit Hgb O2 Saturation Carboxyhemoglobin Methemoglobin Total Hemoglobin Ionized Calcium O2 Delivery Device O2 Liters/Min FiO2 Specimen Drawn By Rectification Printer ID Sodium Potassium Chloride Carbon Dioxide Anion Gap BUN Creatinine GFR Calculation Glucose POC Glucose Calculated Osmolal ity Calcium Magnesium Total Bilirubin AST ALT Alkaline Phosphata se Ammonia 76 H Total Protein Albumin Globulin Vancomycin Trough 20.3 H Vitals: Last Vital Signs Temp 98.8 F 01/26/20 11:19 Pulse 99 01/26/20 11:19 Resp 17 01/26/20 11:19 BP 121/62 01/26/20 11:19 Pulse Ox 97 01/26/20 11:19 Discharge Plan Discharge Patient Disposition: Home Condition: Fair Prescriptions: New lactulose 20 gram/30 mL Solution 30 g PO TID Qty: 2000 RF: 0 sennosides [Senna Lax] 8.6 mg Tablet 17.2 mg PO BEDTIME Qty: 30 RF: 0 amoxicillin 500 mg Capsule 1,000 mg PO BID Qty: 36 RF: 0 Continued (DME) pen needle, diabetic [Pen Needle] 31 gauge x 5/16 needle See Rx Instructions .ROUTE .MEDSUPPLY Qty: 100 RF: 12 hydrocodone-acetaminophen 5-325 mg tablet 1 tab PO Q8H PRN (Reason: pain) 30 Days Qty: 90 RF: 0 omeprazole 20 mg capsule,delayed release(DR/EC) 20 mg PO DAILY Qty: 30 RF: 3 Victoza 3-Porter 0.6 mg/0.1 mL (18 mg/3 mL) pen injector 1.8 mg SUBCUT Q24H Qty: 9 RF: 3 levothyroxine 150 mcg capsule 150 mcg PO DAILY Qty: 30 RF: 3 albuterol sulfate [ProAir HFA] 90 mcg/actuation HFA aerosol inhaler 2 puff INHALATION Q6H PRN (Reason: shortness of breath) Qty: 8.5 RF: 3 allopurinol 100 mg tablet 100 mg PO DAILY Qty: 30 RF: 3 insulin lispro [Humalog KwikPen Insulin] 100 unit/mL insulin pen See Rx Instructions .ROUTE .COMPLEX RF: 0 gabapentin 800 mg tablet 400 mg PO TID RF: 0 Lantus U-100 Insulin 100 unit/mL solution 10 unit SUBCUT BID Qty: 0 RF: 0 duloxetine [Cymbalta] 30 mg Capsule,Delayed Release(Dr/Ec) 30 mg PO BID RF: 0 Xifaxan 550 MG 550 mg PO DAILY RF: 0 amlodipine 5 mg tablet 5 mg PO DAILY RF: 0 metoprolol tartrate 25 mg tablet 12.5 mg PO BID RF: 0 Changed ferrous sulfate 325 mg (65 mg iron) tablet 325 mg PO EVERY OTHER DAY Qty: 30 RF: 3 Discontinued oxybutynin chloride 5 mg Tablet Extended Release 24hr 5 mg PO DAILY RF: 0 lactulose 20 gram/30 mL solution 20 g PO Q6H PRN (Reason: Constipation) RF: 0 Discharge Orders: Discharge Order (Routine); Ordered 01/26/20 Ordered By: Luis Eduardo Arguello Referrals: Pilo Alexis MD [Primary Care Provider] - 4-7 days Discharge Diet: Usual diet Discharge Activity: Increase activity as tolerated Activity Restrictions/Additional Instructions: Please call your doctor or present to emergency department if your condition worsens or you develop diarrhea, lightheadedness, fatigue or see blood in your stool or black stool. Please titrate lactulose for 2-3 soft bowel movements per day. Please note that the oxybutynin is discontinued as it may predispose patient to urinary tract infections. Patient to complete antibiotics for 9 more days for treatment of UTI. Please keep blood sugar, blood pressure and heart rate log 3 times daily to present to primary care physician next visit for medication adjustment. If patient's family is currently ill please make sure patient is isolated from rest of the family until told otherwise by doctor. Discharge Attestations Time Spent in Discharge Care*: greater than 30 min Status at Discharge: Cognitive status at discharge: moderately impaired cognition , Behavioral status at discharge: cooperative and can be uncooperative , Quality Metrics Clinical Quality Measures During this hospital stay, did patient experience: None Coding Level of Care Code Acute Cost Consultant for g Fwd Exam Detailed Diagnoses Dehydration with hyponatremia E86.0; E87.1 Chronic kidney disease, stage III (moderate) N18.3 Normocytic anemia D64.9 Hyperammonemia E72.20 DM2 (diabetes mellitus, type 2) E11.9 Dementia without behavioral disturbance F03.90 Altered mental status R41.0 Altered mental status type: delirium Cirrhosis of liver K74.60 Hypothyroidism E03.9
[2020-01-26] MEDS: gabapentin 400 mg Capsule PO (16:24)
[2020-01-26] MEDS: lactulose oral liq 20 gm/30 mL UDC 30 GM PO (16:24)
== END 2020-01-26 19:08 | disposition home or self-care (01) | DRG 689 ==
LOC: ER 18:09 → MEDSURG 18:52
PROVIDERS: Family Medicine; Internal Medicine; Admitting Provider Internal Medicine; PCP Internal Medicine; Visit Provider Internal Medicine
DX: N39.0 Urinary tract infection, site not specified (principal); G93.41 Metabolic encephalopathy; E87.1 Hypo-osmolality and hyponatremia; E03.9 Hypothyroidism, unspecified; E11.9 Type 2 diabetes mellitus without complications; D64.9 Anemia, unspecified; N18.3 Chronic kidney disease, stage 3 (moderate); E11.22 Type 2 diabetes mellitus with diabetic chronic kidney disease; K74.60 Unspecified cirrhosis of liver; E86.0 Dehydration; F03.90 Unspecified dementia, unspecified severity, without behavioral disturbance, psychotic disturbance, mood disturbance, and anxiety; B95.2 Enterococcus as the cause of diseases classified elsewhere; Z79.4 Long term (current) use of insulin; J44.9 Chronic obstructive pulmonary disease, unspecified; K21.9 Gastro-esophageal reflux disease without esophagitis; M79.7 Fibromyalgia
CPT/HCPCS: 12345; 36415; 36416; 36600; 51702; 70450; 71045; 80051; 80053; 80202; 80306; 81001; 81003; 82009; 82140; 82810; 82962; 83605; 83690; 83735; 83986; 84145; 84443; 84484; 85014; 85018; 85025; 86140; 87040; 87077; 87086; 87186; 93005; 94640; 96372; 97161; 97530; 99283; 99284; G0378; J0696; J0743; J1630; J1650; J1815 ×2; J2060; J2270; J2543; J3370; J3490; J3535; J7030; J7050

== ENCOUNTER 2020-01-29 13:44 | Inpatient (IN) | payer MEDICARE, MEDICAID, SELFPAY ==
[2020-01-29] VITALS (9 sets, daily range): BP systolic 104–131; BP diastolic 46–74; PULSE 77–94; RESP 16–20; TEMP 36.6–36.7; O2SAT 94–98; BMI 26.6
--- NOTE | 2020-01-29 13:50 | XR_ITS ---
WS: [id number] PORTABLE CHEST HISTORY: AMS COMPARISON: 01/15/2020 Moderate stable elevation RIGHT hemidiaphragm. Subsegmental atelectasis at the lung bases. No pneumon ia. Normal vasculature. No pleural effusion or pneumothorax. Cardiac size: Normal. Mediastinum/Aorta: Mild atherosclerosis aorta. No osseous abnormality seen. XR/XR chest 1V portable [id number] IMPRESSION: Stable chest. No acute cardiopulmonary disease.
--- NOTE | 2020-01-29 14:03 | W.ED.AMS ---
HPI - Altered Mental Status General: Chief Complaint: Altered Mental Status Stated Complaint: INCREASED CONFUSION Time Seen by Provider: 01/29/20 13:44 History of Present Illness: HPI narrative: This patient is a 74-year-old female brought in by ambulance from home. She was in the hospital recently with a UTI and elevated ammonia level. She was discharged home 1 or 2 days ago and family reports that she is getting worse again. She has baseline dementia, cirrhosis of the liver, recurrent UTIs. Family said she will not eat or drink or take any medications. No reported fevers. MD complaint: altered mental status Onset (ago): unknown Consistency of symptoms: Getting Worse Context: history of similar presentation, diabetes and liver disease Review of Systems General: Reports: ROS unobtainable due to mental status PFSH ED PFSH: Medical History Chronic kidney disease, stage III (moderate) Cirrhosis of liver COPD (chronic obstructive pulmonary disease) Dementia without behavioral disturbance Diabetes mellitus Fibromyalgia Frailty GERD (gastroesophageal reflux disease) Hypertension Normocytic anemia Obstructive pyelonephritis Recurrent UTI Retained ureteral stent Surgical History H/O eye surgery S/P cataract extraction S/P cholecystectomy Status post carpal tunnel release of both wrists Family History Other Cancer Diabetes Heart disease Social History (Updated 01/29/20 @ 16:45 by Anne Gutierrez MD) Smoking and tobacco status: never smoked Alcohol intake: never Household members: family Marital status: / Current occupational status: retired History of recent travel: No Current gender identity: Female Physical Exam Const: COMMON NORMALS: no acute distress GENERAL APPEARANCE: well developed NUTRITIONAL APPEARANCE: obese ORIENTATION/CONSCIOUSNESS: Yes confused OTHER: She responds to irritating stimulus but does not follow commands or answer questions other than very simple yes and no. HENMT: HEAD & SCALP: normal to inspection FACE & SINUS: normal facial exam Eye: GENERAL EYE: appearance normal, both eyes and all related structures and other (She would not open her eyes for me) Neck/C-Spine: COMMON NORMALS: supple, no meningeal signs and no JVD Chest: COMMONS NORMALS: normal inspection of the chest Resp: COMMON NORMALS: normal respiratory effort, No use of accessory muscles and clear to auscultation bilaterally AUSCULTATION: clear to auscultation bilaterally Cardio: COMMON NORMALS: no JVD, regular rate and regular rhythm RATE: regular rate RHYTHM: regular rhythm HEART SOUNDS: Murmur heart sound present GI: COMMON NORMALS: Normal to inspection, nondistended, normoactive bowel sounds present, Soft to palpation and non-tender INSPECTION: Yes normal to inspection AUSCULTATION: Yes normoactive bowel sounds PALPATION: Yes Soft to palpation and Yes Tenderness to palpation present (GI) (Diffusely) : OTHER: Clothing is wet from urinary incontinence Back/Pelvis: COMMON NORMALS: thoracic and lumbar spine normal to inspection Extremity: COMMON NORMALS: normal to inspection Neuro: COMMON NORMALS: moves all extremities, no focal motor deficits and no sensory deficits noted MENINGEAL SIGNS: Yes no meningeal signs Psych: COMMON NORMALS: mental status grossly normal, cooperative and normal affect Skin: COMMON NORMALS: no rashes or lesions noted and turgor normal GENERAL SKIN EXAM: no rashes or lesions noted and turgor normal Course ED course: Patient with marked hyper ammonemia. Also continued UTI. Decreased mental status. Will require readmission for antibiotics as well as lactulose either NG tube or rectally. Home situation needs to be evaluated as her daughter told me that they are giving her lactulose but she has not been having bowel movements and obviously her ammonia level has increased dramatically again. Vital Signs: Vital signs: Vital Signs Temperature 99.2 F 01/30/20 04:00 Pulse Rate 95 01/30/20 04:00 Respiratory Rate 16 01/30/20 11:54 Blood Pressure 112/67 01/30/20 04:00 Pulse Oximetry 94 01/30/20 04:00 MDM - Altered Mental Status Lab Data: Labs: Lab Results 01/29/20 01/29/20 01/29/20 Range/Units 14:10 14:10 14:10 WBC 5.8 (4.0-10.0) 10^3/ uL RBC 3.20 L (4.1-5.3) 10^6/u L Hgb 8.9 L (11.5-15.3) g/dL Hct 29.3 L (37.0-47.0) % MCV 91.6 (81-99) fL MCH 27.8 L (28.0-34.0) pg MCHC 30.4 (30.0-36.0) g/dL RDW 16.6 H (12.1-15.1) % Plt Count 338 (130-400) 10^3/c mm MPV 9.7 (7.4-10.4) fL Neut % (Auto) 48.7 % Lymph % (Auto) 38.4 % [place] % (Auto) 7.0 % Eos % (Auto) 5.5 % Baso % (Auto) 0.2 % Neut # (Auto) 2.84 (1.8-7.7) 10^3/u L Lymph # (Auto) 2.2 (0.8-4.8) 10^3/u L [place] # (Auto) 0.4 (0.2-0.9) 10^3/u L Eos # (Auto) 0.3 (0.0-0.8) 10^3/u L Baso # (Auto) 0.0 (0.0-0.1) 10^3/u L Nucleated RBC % (a uto) 0 % Nucleated RBCs # 0.0 /100WBC Sodium 134 L (136-145) mmol/L Potassium 3.5 (3.5-5.1) mmol/L Chloride 103 (98-107) mmol/L Carbon Dioxide 20 L (22-29) mmol/L Anion Gap 14.5 (5-19) BUN 26 H (8-23) mg/dL Creatinine 1.5 H (0.5-0.9) mg/dL GFR Calculation Not Reportable Glucose 331 H (65-115) mg/dL Calculated Osmolal ity 288 (285-295) mOsm/k g Lactate (0.5-2.2) mmol/L Calcium 8.8 (8.5-10.5) mg/dL Total Bilirubin 0.3 (0.15-1.2) mg/dL AST 33 H (0-32) U/L ALT 16 (0-33) U/L Alkaline Phosphata se 227 H (35-105) IU/L Ammonia 189 H (11-51) umol/L C-Reactive Protein 6.5 H (0.0-4.9) mg/L Total Protein 9.3 H (6.6-8.7) g/dL Albumin 3.0 L (3.5-5.2) g/dL Globulin 6.3 H (1.3-4.6) g/dL Lipase 11 L (13-60) U/L Procalcitonin 0.17 (0-0.5) ng/mL Urine Color (Yellow) Urine Appearance (CLEAR) Urine pH (5-7) Ur Specific Gravit y (1.005-1.030) Urine Protein (Negative) Urine Glucose (UA) (Normal) Urine Ketones (Negative) Urine Blood (Negative) Urine Nitrate (Negative) Urine Bilirubin (NEGATIVE) Urine Urobilinogen (Negative) mg/dL Ur Leukocyte Roxie ase (Negative) Urine RBC (0-2) /hpf Urine WBC (0-5) /hpf Ur Squamous Epith Cells (0-5) Amorphous Sediment Urine Bacteria (NONE) Urine Yeast Serum Ketones (Negative) 01/29/20 01/29/20 01/29/20 Range/Units 14:10 14:10 14:24 WBC (4.0-10.0) 10^3/ uL RBC (4.1-5.3) 10^6/u L Hgb (11.5-15.3) g/dL Hct (37.0-47.0) % MCV (81-99) fL MCH (28.0-34.0) pg MCHC (30.0-36.0) g/dL RDW (12.1-15.1) % Plt Count (130-400) 10^3/c mm MPV (7.4-10.4) fL Neut % (Auto) % Lymph % (Auto) % [place] % (Auto) % Eos % (Auto) % Baso % (Auto) % Neut # (Auto) (1.8-7.7) 10^3/u L Lymph # (Auto) (0.8-4.8) 10^3/u L [place] # (Auto) (0.2-0.9) 10^3/u L Eos # (Auto) (0.0-0.8) 10^3/u L Baso # (Auto) (0.0-0.1) 10^3/u L Nucleated RBC % (a uto) % Nucleated RBCs # /100WBC Sodium (136-145) mmol/L Potassium (3.5-5.1) mmol/L Chloride (98-107) mmol/L Carbon Dioxide (22-29) mmol/L Anion Gap (5-19) BUN (8-23) mg/dL Creatinine (0.5-0.9) mg/dL GFR Calculation Glucose (65-115) mg/dL Calculated Osmolal ity (285-295) mOsm/k g Lactate 1.8 (0.5-2.2) mmol/L Calcium (8.5-10.5) mg/dL Total Bilirubin (0.15-1.2) mg/dL AST (0-32) U/L ALT (0-33) U/L Alkaline Phosphata se (35-105) IU/L Ammonia (11-51) umol/L C-Reactive Protein (0.0-4.9) mg/L Total Protein (6.6-8.7) g/dL Albumin (3.5-5.2) g/dL Globulin (1.3-4.6) g/dL Lipase (13-60) U/L Procalcitonin (0-0.5) ng/mL Urine Color Straw (Yellow) Urine Appearance Sl hazy (CLEAR) Urine pH 6.5 (5-7) Ur Specific Gravit y 1.005 (1.005-1.030) Urine Protein Trace (Negative) Urine Glucose (UA) 4+ H (Normal) Urine Ketones Negative (Negative) Urine Blood 3+ H (Negative) Urine Nitrate Negative (Negative) Urine Bilirubin Neg (NEGATIVE) Urine Urobilinogen Norm (Negative) mg/dL Ur Leukocyte Roxie ase 2+ H (Negative) Urine RBC 10-15 H (0-2) /hpf Urine WBC 40-55 H (0-5) /hpf Ur Squamous Epith Cells 0-4 H (0-5) Amorphous Sediment Not Reportable Urine Bacteria 2+ H (NONE) Urine Yeast 3+ H Serum Ketones Negative (Negative) Discharge Plan Discharge Patient Disposition: Admitted As Inpatient Admit Provider: Anne Gutierrez Clinical Impression: Acute UTI, Hyperammonemia Altered mental status Qualifiers: Altered mental status type: unspecified Qualified Code(s): R41.82 - Altered mental status, unspecified Condition: Stable Referrals: Pilo Alexis MD [Primary Care Provider] - Discharge Date/Time: 01/29/20 17:24 Coding Level of Care Code ED Pearl Peller for Chg Fwd Exam Comprehensive
[2020-01-29 14:18] LABS: Basophils % 0.2 %; Eosinophils # 0.3 10^3/uL (0.0-0.8); Eosinophils % 5.5 %; Hematocrit 29.3 % (37.0-47.0); Hemoglobin 8.9 g/dL (11.5-15.3); Lymphocytes # 2.2 10^3/uL (0.8-4.8); Lymphocytes % 38.4 %; Mean Corpuscular HGB Conc 30.4 g/dL (30.0-36.0); Mean Corpuscular Hemoglobin 27.8 pg (28.0-34.0); Mean Corpuscular Volume 91.6 fL (81-99); Mean Platelet Volume 9.7 fL (7.4-10.4); Monocytes # 0.4 10^3/uL (0.2-0.9); Neutrophils # 2.84 10^3/uL (1.8-7.7); Neutrophils % 48.7 %; Nucleated Red Blood Cells % 0 %; Platelet Count 338 10^3/cmm (130-400); Red Cell Distribution Width 16.6 % (12.1-15.1); White Blood Count 5.8 10^3/uL (4.0-10.0)
[2020-01-29 14:28] LABS: Ketone (Acetest) Serum Negative (Negative)
[2020-01-29 14:34] LABS: Lactate (Lactic Acid level) 1.8 mmol/L (0.5-2.2)
[2020-01-29 14:35] LABS: Ammonia 189 umol/L (11-51)
[2020-01-29 14:46] LABS: Procalcitonin 0.17 ng/mL (0-0.5)
[2020-01-29 14:57] LABS: Alanine Aminotransferase 16 U/L (0-33); Alkaline Phosphatase 227 IU/L (35-105); Anion Gap 14.5 (5-19); Aspartate Amino Transferase 33 U/L (0-32); Blood Urea Nitrogen 26 mg/dL (8-23); C Reactive Protein 6.5 mg/L (0.0-4.9); Calcium 8.8 mg/dL (8.5-10.5); Carbon Dioxide 20 mmol/L (22-29); Chloride 103 mmol/L (98-107); Globulin 6.3 g/dL (1.3-4.6); Glucose 331 mg/dL (65-115); Lipase 11 U/L (13-60); Osmolality Calculated 288 mOsm/kg (285-295); Potassium 3.5 mmol/L (3.5-5.1); Sodium 134 mmol/L (136-145); Total Bilirubin 0.3 mg/dL (0.15-1.2); Total Protein 9.3 g/dL (6.6-8.7)
[2020-01-29 15:01] LABS: Bilirubin Urine Neg (NEGATIVE); Blood Urine 3+ (Negative); Glucose Urine UA 4+ (Normal); Ketones Urine Negative (Negative); Nitrate Urine Negative (Negative); Protein Urine Trace (Negative); Specific Gravity, Urine 1.005 (1.005-1.030); Urine Appearance SL Hazy (CLEAR); Urine Color Straw (Yellow); pH Urine 6.5 (5-7)
[2020-01-29 15:02] LABS: Add Urine Microscopic? YES; Leukocyte Esterase Urine 2+ (Negative); Urobilinogen Urine Norm (Negative)
[2020-01-29 15:03] LABS: Add Urine Culture? Yes; Bacteria Urine 2+; Squamous Epithelial Cell Urine 0-4 (0-5); WBC Urine 40-55 /hpf (0-5)
[2020-01-29] MEDS: piperacillin-tazobactam 3.375 GM in sodium chloride 0.9% (plus) 50 ML IV (15:23)
[2020-01-29] MEDS: lactulose oral liq 20 gm/30 mL UDC 30 GM PO (16:19)
--- NOTE | 2020-01-29 16:21 | PM.HP ---
Providers/Chief Complaint Admitting Physician: Anne Gutierrez MD Primary Care Provider: Pilo Alexis MD Chief Complaint: INCREASED CONFUSION History of Present Illness Melba Newman is a 74 year old female with noted past medical history presents to the hospital due to progressive confusion for the past several days. Patient was recently discharged from our facility on 01/25 following treatment for UTI and hepatic encephalopathy. Urine cultures grew Enterococcus faecalis and she was discharged on a course of amoxicillin which per daughter whom I spoke with on the phone Ms. Cristela Henson, not seems to be clearing the infection. Patient has had several episodes of incontinence which is reportedly different than what she has had in the past. She has not had more than one bowel movement since her discharge despite taking lactulose. Her appetite has been very diminished and whereas she was previously able to drink a lot of water has been quite limited in her hydration as well. Daughter states that patient's mental status is typically okay with some intermittent confusion though patient seems to have at least a moderate degree of dementia. Daughter mentions that she would like the patient to return home on discharge. Patient's last meal was approximately 2 days ago. Chow catheter has been placed and she does have noted hematuria and some purulence in the catheter. She is obtunded during my assessment in the ER, with tactile and verbal stimulation response quite irrately with I am God when asked how she is feeling. Collateral information obtained from daughter as well as review of medical record. Today she is noted to have elevated ammonia at 189, hemoglobin of 8.9, normal white count and platelets, sodium of 134, BUN of 26, creatinine of 1.5, blood glucose of 331, AST of 33, normal ALT at 16, ALP of 227, urinalysis that is quite indicative of infection. Chest x-ray is negative. She has received a dose of Zosyn will request lactulose enema as patient is not appropriate for oral intake at this time. Anticipate need for sitter given underlying dementia and high fall risk. She has been admitted for further management of hepatic encephalopathy and treatment of recurrent UTI. Review of Systems General: Reports: ROS unobtainable due to mental status (currently obtunded) Const: Reports: change in appetite (diminished) Neuro: Reports: confusion Medications/Allergies Home Medications Medication Instructions Recorded Confirmed Last Taken Type omeprazole 20 mg capsule,delayed 20 mg PO DAILY #30 cap 09/21/19 01/29/2020 Rx release levothyroxine 150 mcg capsule 150 mcg PO DAILY #30 cap 09/28/19 01/29/20 01/10/20 Rx liraglutide 0.6 mg/0.1 mL (18 mg/3 1.8 mg SUBCUT Q24H #9 ml 09/28/19 01/29/20 01/10/20 Rx mL) subcutaneous pen injector pen needle, diabetic 31 gauge x #100 each 10/16/19 01/29/20 Unknown Rx 11/10 insulin lispro [Humalog KwikPen See Rx Instructions .ROUTE .COMPLEX 11/30/19 01/29/20 01/10/20 History Insulin] gabapentin 800 mg PO TID 12/11/19 01/29/20 01/10/20 History albuterol sulfate 90 mcg/actuation 2 puff INHALATION Q6H PRN #8.5 gm 12/14/19 01/29/20 01/10/20 Rx aerosol inhaler allopurinol 100 mg tablet 100 mg PO DAILY #30 tab 12/14/19 01/29/20 01/10/20 Rx Xifaxan 550 mg PO DAILY 01/03/20 01/29/20 01/10/20 History duloxetine [Cymbalta] 30 mg PO BID 01/03/20 01/29/20 01/10/20 History amlodipine 5 mg PO DAILY 01/04/20 01/29/20 01/10/20 History metoprolol tartrate 12.5 mg PO BID 01/04/20 01/29/20 01/10/20 History hydrocodone 5 mg-acetaminophen 325 1 tab PO Q8H PRN 30 Days #90 tab 01/18/20 01/29/20 Unknown Rx mg tablet amoxicillin 1,000 mg PO BID #36 cap 01/26/20 01/29/20 Unknown Rx ferrous sulfate 325 mg PO EVERY OTHER DAY #30 tab 01/26/20 01/29/20 01/10/20 Rx lactulose 30 g PO TID #2000 ml 01/26/20 01/29/20 Unknown Rx sennosides [Senna Lax] 17.2 mg PO BEDTIME #30 tab 01/26/20 01/29/20 Unknown Rx Lantus U-100 Insulin 40 unit SUBCUT BID 01/29/20 01/29/20 Unknown History aspirin 81 mg PO DAILY 01/29/20 01/29/20 Unknown History olanzapine 2.5 mg PO BID 01/29/20 01/29/20 Unknown History spironolactone 25 mg PO DAILY 01/29/20 01/29/20 Unknown History Allergies Allergy/AdvReac Type Severity Reaction Status Date / Time celecoxib [From Celebrex] Allergy Intermediate confusion Verified 01/18/20 15:02 meperidine [From Demerol] Allergy Unknown Verified 01/18/20 15:02 theophylline Allergy Unknown Verified 01/18/20 15:02 PFSH Acute PFSH: Medical History Chronic kidney disease, stage III (moderate) Cirrhosis of liver COPD (chronic obstructive pulmonary disease) Dementia without behavioral disturbance Diabetes mellitus Fibromyalgia Frailty GERD (gastroesophageal reflux disease) Hypertension Normocytic anemia Obstructive pyelonephritis Recurrent UTI Retained ureteral stent Surgical History H/O eye surgery S/P cataract extraction S/P cholecystectomy Status post carpal tunnel release of both wrists Family History Other Cancer Diabetes Heart disease Social History (Updated 01/29/20 @ 16:45 by Anne Gutierrez MD) Smoking and tobacco status: never smoked Alcohol intake: never Household members: family Marital status: / Current occupational status: retired History of recent travel: No Current gender identity: Female Vitals/I&O/Wt Last Vital Signs Temp 97.8 F 01/29/20 13:49 Pulse 83 01/29/20 13:49 Resp 18 01/29/20 13:49 BP 109/50 01/29/20 14:41 Pulse Ox 97 01/29/20 14:41 Weight last 48 hrs Weight 72.575 kg Physical Exam Const: GENERAL APPEARANCE: frail appearing and appears older than stated age NUTRITIONAL APPEARANCE: overweight ORIENTATION/CONSCIOUSNESS: Yes patient obtunded HENMT: COMMON NORMALS: normocephalic, atraumatic and hearing grossly normal bilaterally HEAD & SCALP: normocephalic and atraumatic MOUTH: moist mucous membranes abnormal Details: parched Eye: COMMON NORMALS: Equal, round and reactive pupils present, EOMs intact bilaterally and conjunctivae normal CONJUNCTIVA: Yes conjunctivae normal PUPIL: Yes Equal, round and reactive pupils present Neck/C-Spine: COMMON NORMALS: full ROM GENERAL: Yes normal visual inspection and Yes trachea midline Resp: COMMON NORMALS: normal respiratory effort, No retractions, No use of accessory muscles and clear to auscultation bilaterally EFFORT & INSPECTION: Yes able to speak in complete sentences, Yes symmetric chest movement and No tachypneic AUSCULTATION: clear to auscultation bilaterally OTHER: -on RA Cardio: COMMON NORMALS: regular rate, regular rhythm, S1 normal heart sound present, S2 normal heart sound present and No murmurs present (Cardio) RATE: regular rate RHYTHM: regular rhythm HEART SOUNDS: S1 normal heart sound present and S2 normal heart sound present GI: COMMON NORMALS: Normal to inspection, nondistended, normoactive bowel sounds present and Soft to palpation INSPECTION: Yes central obesity PALPATION: Yes Soft to palpation : BLADDER/KIDNEY EXAM: Yes catheter in place Catheter type (Female): urethral OTHER: -urine with noted hematuria, some purulence Extremity: COMMON NORMALS: normal to inspection, full ROM and no clubbing, cyanosis or edema; negative for no pedal edema Neuro: COMMON NORMALS: moves all extremities, no focal motor deficits and no sensory deficits noted SENSORIUM/ORIENTATION: Yes obtunded Psych: COMMON NORMALS: normal affect and speech normal SPEECH: Yes normal speech THOUGHT PROCESS: Normal thought process present MEMORY/COGNITION: Yes cognition grossly impaired INSIGHT: Poor insight present (Psych) Skin: COMMON NORMALS: no rashes or lesions noted, no jaundice, no petechiae and no mottling GENERAL SKIN EXAM: no rashes or lesions noted Urinary Catheter Management^: Chow: Cath Placed During This Visit: yes Urinary Catheter Date of Insertion: 01/29/20 Urinary Catheter Time of Insertion: 14:36 Data : 01/29/20 14:10 01/29/20 14:10 Micro: Microbiology 01/29/20 14:05 Blood Culture - Preliminary Blood SPECIMEN COLLECTED 01/29/20 14:10 Blood Culture - Preliminary Blood SPECIMEN COLLECTED A&P Assessment and plan (1) Altered mental status: -likely multifactorial given significant underlying dementia, recurrent UTI, hyperammonemia -Patient is confused at baseline due to underlying dementia; per daughter confusion has been increasing for the past few days since her recent discharge from the hospital during which time she was treated for UTI and hepatic encephalopathy -Given current mental status will keep n.p.o. due to risk of aspiration -Lactulose enemas till p.o. appropriate -Daily ammonia levels; currently at 189 -Treatment of UTI as noted below -Strict fall, aspiration precautions -IVF hydration as has had poor oral intake recently and clinically appears dehydrated -Anticipate need for one-on-one monitoring due to high fall risk Status: Acute Qualifiers: Altered mental status type: unspecified Qualified Code(s): R41.82 - Altered mental status, unspecified (2) Hyperammonemia: -Has noted acute hepatic encephalopathy secondary to underlying liver cirrhosis evidenced by hyperammonemia -Lactulose enemas till p.o. appropriate. Would avoid NG tube placement as likely to pull this out and there is continued risk of aspiration -Daily ammonia levels; currently at 189 Status: Acute (3) Recurrent UTI: -Has noted history of recurrent UTIs, most recently treated with amoxicillin secondary to Enterococcus faecalis on most recent urine culture -Urinalysis today grossly indicative of infection with noted leukocyte esterase, hematuria, pyuria, bacteria -Review of prior urine cultures shows that she has had ESBL in the past so we will treat with Primaxin pending culture results -f/u urine and blood cx -Chow catheter placed in ER, assess daily for removal, monitor urine output Status: Acute (4) Hypothyroidism: -Resume levothyroxine Status: Chronic Qualifiers: Hypothyroidism type: unspecified Qualified Code(s): E03.9 - Hypothyroidism, unspecified (5) Normocytic anemia: -Has chronic normocytic anemia -Baseline hemoglobin is around 9 -Continue to monitor hemoglobin Status: Acute (6) Chronic kidney disease, stage III (moderate): -Baseline creatinine appears to be around 1.3-1.7 -Current renal function at baseline; continue to monitor -Avoid nephrotoxins, renally dose meds Status: Chronic (7) Hyponatremia: -Likely secondary to dehydration from poor oral intake -IVF hydration -Monitoring of sodium levels Status: Chronic (8) Dementia without behavioral disturbance: -Clinically appears to have advanced dementia -Will likely require one-on-one monitoring due to high fall risk and need for frequent reorientation Status: Chronic Qualifiers: Dementia type: Alzheimer's disease Alzheimer's disease onset: unspecified onset Qualified Code(s): G30.9 - Alzheimer's disease, unspecified; F02.80 - Dementia in other diseases classified elsewhere without behavioral disturbance (9) COPD (chronic obstructive pulmonary disease): -Not oxygen dependent at baseline -No acute exacerbation currently Status: Chronic Qualifiers: COPD type: unspecified COPD Qualified Code(s): J44.9 - Chronic obstructive pulmonary disease, unspecified (10) GERD (gastroesophageal reflux disease): -Resume PPI Status: Chronic Qualifiers: Esophagitis presence: esophagitis presence not specified Qualified Code(s): K21.9 - Gastro-esophageal reflux disease without esophagitis (11) Cirrhosis of liver: -Has history of idiopathic liver cirrhosis -Follows up with Dr. Alexis -Noted elevated LFTs, consistent with liver cirrhosis -Resume rifaximin; hold Aldactone due to dehydration Status: Chronic Qualifiers: Hepatic cirrhosis type: unspecified hepatic cirrhosis Ascites presence: without ascites Qualified Code(s): K74.60 - Unspecified cirrhosis of liver Additional A&P Information -Chronic constipation, on lactulose -NIDDM type II, A1c (11/2019)-9.7; ISS, hypoglycemia precautions especially when NPO -GI ppx with PPI -DVT ppx with SCDs, no AC due to anemia -Dispo: per discussion with daughter Cristela Henson wants patient to return home on discharge; declined SNF which has been discussed on previous occasions -Code status: FULL code; discussed with daughter over the phone; Cristela is her DPOA Attestations Medical Necessity Statement*: [facility] stay will require greater than 2 midnights for management of hepatic encephalopathy, recurrent UTI requiring IV antibiotics, dehydration requiring IV fluid hydration. Time Spent in Patient Care: Greater than 35 minutes (>than 50% of time spent in counselling and/or direct pt care on unit). Coding Level of Care Code Acute Typewriter Assembly And Parts Inspector for Chg Fwd Diagnoses Altered mental status R41.82 Altered mental status type: unspecified Hyperammonemia E72.20 Recurrent UTI N39.0 Hypothyroidism E03.9 Hypothyroidism type: unspecified Normocytic anemia D64.9 Chronic kidney disease, stage III (moderate) N18.3 Hyponatremia E87.1 Dementia without behavioral disturbance G30.9; F02.80 Dementia type: Alzheimer's disease Alzheimer's disease onset: unspecified onset COPD (chronic obstructive pulmonary disease) J44.9 COPD type: unspecified COPD GERD (gastroesophageal reflux disease) K21.9 Esophagitis presence: esophagitis presence not specified Cirrhosis of liver K74.60 Hepatic cirrhosis type: unspecified hepatic cirrhosis Ascites presence: without ascites
[2020-01-29] MEDS: lactulose oral liq 20 gm/30 mL UDC 200 GM PR (18:11)
[2020-01-29] MEDS: metoprolol tartrate 25 mg Tablet 12.5 MG PO (18:12)
[2020-01-29] MEDS: D5-NS 0.45% + KCL 20 mEq 20 MEQ/1,000 ML BAG 75 MEQ IV (18:12)
[2020-01-29] MEDS: OLANZapine 5 mg TABLET 2.5 MG PO (18:12)
--- NOTE | 2020-01-29 18:35 | PC.NURSE ---
Patient aggravated and refusing oral medication Dr. Lu at bedside verbalized okay to hold both oral scheduled medications.
[2020-01-29 20:49] LABS: Glucose Point of Care 176 mg/dL (70-110)
[2020-01-30 04:00] VITALS: BP 112/67; PULSE 95; RESP 20; TEMP 37.3; O2SAT 94
[2020-01-30] MEDS: lactulose oral liq 20 gm/30 mL UDC 200 GM PR ×4 (05:14→23:21)
[2020-01-30 05:22] LABS: Basophils % 0.5 %; Eosinophils # 0.4 10^3/uL (0.0-0.8); Eosinophils % 5.6 %; Hematocrit 29.8 % (37.0-47.0); Hemoglobin 8.9 g/dL (11.5-15.3); Lymphocytes # 2.4 10^3/uL (0.8-4.8); Mean Corpuscular HGB Conc 29.9 g/dL (30.0-36.0); Mean Corpuscular Hemoglobin 27.6 pg (28.0-34.0); Mean Corpuscular Volume 92.5 fL (81-99); Mean Platelet Volume 9.6 fL (7.4-10.4); Monocytes # 0.4 10^3/uL (0.2-0.9); Monocytes % 6.7 %; Neutrophils # 3.08 10^3/uL (1.8-7.7); Nucleated Red Blood Cells % 0 %; Platelet Count 356 10^3/cmm (130-400); Red Blood Count 3.22 10^6/uL (4.1-5.3); Red Cell Distribution Width 16.8 % (12.1-15.1); White Blood Count 6.3 10^3/uL (4.0-10.0)
[2020-01-30 06:03] LABS: Alanine Aminotransferase 16 U/L (0-33); Albumin Level 2.9 g/dL (3.5-5.2); Alkaline Phosphatase 229 IU/L (35-105); Anion Gap 13.4 (5-19); Aspartate Amino Transferase 34 U/L (0-32); Blood Urea Nitrogen 23 mg/dL (8-23); Calcium 8.9 mg/dL (8.5-10.5); Carbon Dioxide 20 mmol/L (22-29); Chloride 109 mmol/L (98-107); Globulin 5.8 g/dL (1.3-4.6); Glucose 131 mg/dL (65-115); Osmolality Calculated 287 mOsm/kg (285-295); Potassium 3.4 mmol/L (3.5-5.1); Sodium 139 mmol/L (136-145); Total Bilirubin 0.5 mg/dL (0.15-1.2); Total Protein 8.7 g/dL (6.6-8.7)
--- NOTE | 2020-01-30 07:01 | PC.NURSE ---
Patient refused fingerstick for blood glucose check, morning lab work used for glucose level and insulin regimen.
--- NOTE | 2020-01-30 07:50 | PC.NURSE ---
Patient refused to allow her vital signs to be take. Patient yelled at the nursing assisted to leave her alone and to get out of her room.
[2020-01-30 08:00] VITALS: RESP 16
[2020-01-30] MEDS: pantoprazole DR 40 mg Tablet PO (08:14)
[2020-01-30] MEDS: metoprolol tartrate 25 mg Tablet 12.5 MG PO ×2 (08:14→17:28)
[2020-01-30] MEDS: D5-NS 0.45% + KCL 20 mEq 20 MEQ/1,000 ML BAG 75 MEQ IV ×2 (08:14→21:30)
[2020-01-30] MEDS: levothyroxine 150 mcg Tablet PO (08:14)
[2020-01-30] MEDS: OLANZapine 5 mg TABLET 2.5 MG PO ×2 (08:14→17:28)
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
--- NOTE | 2020-01-30 10:24 | PC.NURSE ---
Patient refused to have her blood sugar check before lunch.
--- NOTE | 2020-01-30 11:21 | PC.CHAP ---
Pastoral Care Encounter/Spiritual Assessment Type of Contact [] Declined business performance manager visit [] Patient/Family/Request visit [] Outpatient visit [] Follow-up visit [] Physician referral [] Code/Alert [] Routine visit [] Staff referral [] Actively dying [] Patient sleeping [] Family support [] [] Out of room [] Palliative care [] [] Receiving care in room [] Pre-surgical visit [] Trauma [] Long length of stay [] ICU visit [x] Other: has an aid with her Relational/Emotional Strength [] Patient feels connected with others/family/visitors/staff [] Distress [] Loneliness/isolation [] Abandonment Spirituality of Patient [] Person of Rhea [] Attends Cheondoism of their Rhea [] Believes in Prayer [] Reads Bible or Nondenominational materials [] There are Spiritual issues to be addressed [employer] Maker Interventions [] Prayer [] Active listening [] Non-anxious presence [] Spiritual/emotional support [] Crisis/trauma care [] Spiritual counseling [] Bereavement support [] Provided bereavement packet [] Provided Bible/devotional materials [] Provided toy/stuffed animal, coloring book to patient or family member [] Provided Communion [] Anointing/[place] [] Salvation [] Completed spiritual assessment [] Other: Impact on Illness or Injury [] Angry [] Fearful [] Anxious [] Often cries [] Exhaustion [] Unable to work [] Unable to attend methodist [] Unable to walk/stand [] Unable to read [] Unable to drive [] Unable to eat/drink [] Unable to sleep [] Unable to be with family [] Patient intubated [] Other: Summary has an aid with her Time spent with patient 5 mins
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
[2020-01-30 11:47] LABS: Glucose Point of Care 193 mg/dL (70-110)
[2020-01-30 11:54] VITALS: RESP 16
--- NOTE | 2020-01-30 13:45 | PM.PN ---
Subjective Subjective: Interval history: Has had 2 bowel movements so far, had 850 mL urine output overnight, hemodynamically stable, on room air, sitter at bedside, stable hemoglobin and renal function, stable LFTs. Refusing to take her oral medications. Noted to be quite verbally aggressive throughout the day, repeatedly asking whoever walks into the room to get out, poor oral intake other than some intermittent sips of water. Medications: Reviewed: Yes Medication Review Details: Active Medications Generic Name Dose Route Start Last Admin Trade Name Freq PRN Reason Stop Dose Admin Acetaminophen 650 mg 01/29/20 17:31 Tylenol PO Q6H PRN Mild/Mod Pain Or Temp >/= 101 Hydrocodone Bitart /Acetaminophen 1 tab 01/29/20 17:31 [place] 5-325 Mg PO Q8H PRN SEVERE PAIN Dextrose 25 ml 01/29/20 17:31 D50w IVP ONCE PRN hypoglycemia prot ocol Protocol Dextrose 50 ml 01/29/20 17:31 D50w IVP PRN PRN hypoglycemia prot ocol Protocol Ferrous Sulfate 325 mg 01/31/20 09:00 Ferrous Sulfate PO EVERY OTHER DAY S CH Glucagon 1 mg 01/29/20 17:31 Glucagen IM ONCE PRN Adult Acute Hypog lycemia Prot. Protocol Imipenem/Cilastati n Sodium 250 100 mls @ 200 mls /hr 01/29/20 18:00 01/30/20 11:28 mg/ Sodium Chlor tracie IV 200 mls/hr Q6H GIOVANNY Administration Potassium Chloride /Dextrose/Sod Cl 20 meq in 1,000 m ls @ 75 mls/hr 01/29/20 17:31 01/30/20 08:14 D5-Ns 0.45% + Freddy l 20 Meq IV 75 mls/hr .[id number] GIOVANNY Administration Dextrose 500 mls @ 100 mls /hr 01/29/20 17:31 D5w IV ONCE PRN Adult Acute Hypog lycemia Prot Protocol Insulin Aspart 0 unit 01/29/20 18:00 01/30/20 11:28 Novolog SUBCUT 4 unit WM&BEDTIME GIOVANNY Administration Protocol Lactulose 200 gm 01/29/20 16:30 01/30/20 09:48 Constulose OK 200 gm Q6H GIOVANNY Administration Levothyroxine Sodi um 150 mcg 01/30/20 09:00 01/30/20 09:13 Synthroid PO Not Given DAILY GIOVANNY Metoprolol Tartrat e 12.5 mg 01/29/20 18:00 01/30/20 09:13 Lopressor PO Not Given BID [facility] Morphine Sulfate 2 mg 01/29/20 17:31 Morphine IVP Q4H PRN SEVERE PAIN Olanzapine 2.5 mg 01/29/20 18:00 01/30/20 09:13 Zyprexa PO Not Given BID [facility] Ondansetron HCl 4 mg 01/29/20 17:31 Zofran IVP Q8H PRN vomiting, or N/V if npo Pantoprazole Sodiu m 40 mg 01/30/20 09:00 01/30/20 09:13 Protonix PO Not Given DAILY [facility] Rifaximin 550 mg 01/30/20 09:00 01/30/20 09:13 Xifaxan PO Not Given DAILY [facility] celecoxib [From Celebrex] Allergy (Intermediate, Verified 01/18/20 15:02) confusion meperidine [From Demerol] Allergy (Verified 01/18/20 15:02) Unknown theophylline Allergy (Verified 01/18/20 15:02) Unknown Vitals/I&O/Wt Last Vital Signs Temp 99.2 F 01/30/20 04:00 Pulse 95 01/30/20 04:00 Resp 16 01/30/20 11:54 BP 112/67 01/30/20 04:00 Pulse Ox 94 01/30/20 04:00 01/29/20 01/30/20 01/30/20 22:59 06:59 14:59 Intake Total 100 / 100 200 / 300 1000 / 1000 Output Total 500 / 500 850 / 1350 300 / 300 Balance -400 / -400 -650 / -1050 700 / 700 Weight last 48 hrs Weight 87.634 kg Weight 72.575 kg Physical Exam Const: COMMON NORMALS: alert GENERAL APPEARANCE: frail appearing and appears older than stated age NUTRITIONAL APPEARANCE: obese ORIENTATION/CONSCIOUSNESS: Yes awake OTHER: -combative, verbally aggressive, intermittently coherent HENMT: COMMON NORMALS: normocephalic, atraumatic and hearing grossly normal bilaterally HEAD & SCALP: normocephalic and atraumatic MOUTH: moist mucous membranes abnormal Details: parched Eye: COMMON NORMALS: Equal, round and reactive pupils present, EOMs intact bilaterally and conjunctivae normal CONJUNCTIVA: Yes conjunctivae normal PUPIL: Yes Equal, round and reactive pupils present Neck/C-Spine: COMMON NORMALS: full ROM GENERAL: Yes normal visual inspection and Yes trachea midline Resp: COMMON NORMALS: normal respiratory effort, No retractions, No use of accessory muscles and clear to auscultation bilaterally EFFORT & INSPECTION: Yes able to speak in complete sentences, Yes symmetric chest movement and No tachypneic AUSCULTATION: clear to auscultation bilaterally OTHER: -on RA Cardio: COMMON NORMALS: regular rate, regular rhythm, S1 normal heart sound present, S2 normal heart sound present and No murmurs present (Cardio) RATE: regular rate RHYTHM: regular rhythm HEART SOUNDS: S1 normal heart sound present and S2 normal heart sound present GI: COMMON NORMALS: Normal to inspection, nondistended, normoactive bowel sounds present and Soft to palpation INSPECTION: Yes central obesity PALPATION: Yes Soft to palpation : BLADDER/KIDNEY EXAM: Yes catheter in place Catheter type (Female): urethral Extremity: COMMON NORMALS: normal to inspection, full ROM and no clubbing, cyanosis or edema; negative for no pedal edema Neuro: COMMON NORMALS: moves all extremities, no focal motor deficits and no sensory deficits noted SENSORIUM/ORIENTATION: Yes alert and Yes obtunded Psych: COMMON NORMALS: normal affect and speech normal ATTITUDE: Yes agitated, Yes aggressive and Yes hostile SPEECH: Yes normal speech and Yes loud MEMORY/COGNITION: Yes cognition grossly impaired INSIGHT: Poor insight present (Psych) Skin: COMMON NORMALS: no rashes or lesions noted, no jaundice, no petechiae and no mottling GENERAL SKIN EXAM: no rashes or lesions noted Urinary Catheter Management^: Chow: Cath Placed During This Visit: yes Reason for Continuing Indwelling Catheter: Other Urinary Catheter Date of Insertion: 01/29/20 Urinary Catheter Time of Insertion: 14:36 Data : 01/30/20 05:00 01/30/20 05:00 Micro: Microbiology 01/29/20 14:24 Urine Culture - Preliminary Urine,Clean Catch 01/29/20 14:05 Blood Culture - Preliminary Blood SPECIMEN COLLECTED 01/29/20 14:10 Blood Culture - Preliminary Blood SPECIMEN COLLECTED A&P Assessment and plan (1) Altered mental status: -likely multifactorial given significant underlying dementia, recurrent UTI, hyperammonemia -Patient is confused at baseline due to underlying dementia; per daughter confusion has been increasing for the past few days since her recent discharge from the hospital during which time she was treated for UTI and hepatic encephalopathy -Given current mental status will keep n.p.o. due to risk of aspiration -Lactulose enemas till p.o. appropriate -Daily ammonia levels; currently at 189 -Treatment of UTI as noted below -Strict fall, aspiration precautions -IVF hydration as has had poor oral intake recently and clinically appears dehydrated -needs one-on-one monitoring due to high fall risk Status: Acute Qualifiers: Altered mental status type: unspecified Qualified Code(s): R41.82 - Altered mental status, unspecified (2) Hyperammonemia: -Has noted acute hepatic encephalopathy secondary to underlying liver cirrhosis evidenced by hyperammonemia -Lactulose enemas till p.o. appropriate. Would avoid NG tube placement as likely to pull this out and there is continued risk of aspiration -Daily ammonia levels; currently at 189 Status: Acute (3) Recurrent UTI: -Has noted history of recurrent UTIs, most recently treated with amoxicillin secondary to Enterococcus faecalis on most recent urine culture -Urinalysis today grossly indicative of infection with noted leukocyte esterase, hematuria, pyuria, bacteria -Review of prior urine cultures shows that she has had ESBL in the past so continue Primaxin pending culture results -urine cx: prelim negative -f/u blood cx -Chow catheter placed in ER, assess daily for removal, monitor urine output Status: Acute (4) Hypothyroidism: -continue levothyroxine Status: Chronic Qualifiers: Hypothyroidism type: unspecified Qualified Code(s): E03.9 - Hypothyroidism, unspecified (5) Normocytic anemia: -Has chronic normocytic anemia -Baseline hemoglobin is around 9 -Continue to monitor hemoglobin Status: Acute (6) Chronic kidney disease, stage III (moderate): -Baseline creatinine appears to be around 1.3-1.7 -Current renal function at baseline; continue to monitor -Avoid nephrotoxins, renally dose meds Status: Chronic (7) Hyponatremia: -Likely secondary to dehydration from poor oral intake -IVF hydration -Sodium level today wnl Status: Resolved (8) Dementia without behavioral disturbance: -Clinically appears to have advanced dementia -requiring one-on-one monitoring due to high fall risk and need for frequent reorientation Status: Chronic Qualifiers: Alzheimer's disease onset: unspecified onset Dementia type: Alzheimer's disease Qualified Code(s): G30.9 - Alzheimer's disease, unspecified; F02.80 - Dementia in other diseases classified elsewhere without behavioral disturbance (9) COPD (chronic obstructive pulmonary disease): -Not oxygen dependent at baseline -No acute exacerbation currently Status: Chronic Qualifiers: COPD type: unspecified COPD Qualified Code(s): J44.9 - Chronic obstructive pulmonary disease, unspecified (10) GERD (gastroesophageal reflux disease): -continue PPI Status: Chronic Qualifiers: Esophagitis presence: esophagitis presence not specified Qualified Code(s): K21.9 - Gastro-esophageal reflux disease without esophagitis (11) Cirrhosis of liver: -Has history of idiopathic liver cirrhosis -Follows up with Dr. Alexis -Noted elevated LFTs, consistent with liver cirrhosis -on rifaximin; hold Aldactone due to dehydration Status: Chronic Qualifiers: Ascites presence: without ascites Hepatic cirrhosis type: unspecified hepatic cirrhosis Qualified Code(s): K74.60 - Unspecified cirrhosis of liver Additional A&P Information -Chronic constipation, on lactulose -NIDDM type II, A1c (11/2019)-9.7; ISS, hypoglycemia precautions especially when NPO -GI ppx with PPI -DVT ppx with SCDs, no AC due to anemia -Dispo: per discussion with daughter Cristela Henson wants patient to return home on discharge; declined SNF which has been discussed on previous occasions -Code status: FULL code; discussed with daughter over the phone; Cristela is her DPOA Attestations Medical Necessity Statement*: Patient requires hospitalization for continued management of hepatic encephalopathy, treatment of UTI, remains altered and NPO. Time Spent in Patient Care: 16 - 35 minutes (>than 50% of time spent in counselling and/or direct pt care on unit). Coding Level of Care Code Acute Tv News Director for Chg Fwd Exam Comprehensive Diagnoses Altered mental status R41.82 Altered mental status type: unspecified Hyperammonemia E72.20 Recurrent UTI N39.0 Hypothyroidism E03.9 Hypothyroidism type: unspecified Normocytic anemia D64.9 Chronic kidney disease, stage III (moderate) N18.3 Hyponatremia E87.1 Dementia without behavioral disturbance G30.9; F02.80 Alzheimer's disease onset: unspecified onset Dementia type: Alzheimer's disease COPD (chronic obstructive pulmonary disease) J44.9 COPD type: unspecified COPD GERD (gastroesophageal reflux disease) K21.9 Esophagitis presence: esophagitis presence not specified Cirrhosis of liver K74.60 Ascites presence: without ascites Hepatic cirrhosis type: unspecified hepatic cirrhosis
[2020-01-30] MEDS: haloperidol inj 5 mg/mL INJ 1 mL IM ×2 (15:18→23:40)
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
[2020-01-30 17:59] LABS: Glucose Point of Care 184 mg/dL (70-110)
--- NOTE | 2020-01-30 18:27 | PC.NURSE ---
patient pulled IV out and said you will not put it back.
--- NOTE | 2020-01-30 20:35 | PC.NURSE ---
WHEN SHIFT ASSESSMENT ATTEMPTED THE PATIENT BEGAN TO YELL AND THREATEN THE NURSE. THE PATIENT WAS ASKED POLITELY TO ALLOW NURSE TO LISTEN TO HEART AND LUNGS, THE PATIENT STATED THAT THEY ARE FINE AND TO GET THE HELL OUT MY ROOM!! WILL ATTEMPT TO REPROACH LATER.
[2020-01-31] MEDS: LORazepam 2 mg/mL INJ 1 mL IM (02:08)
--- NOTE | 2020-01-31 02:12 | PC.NURSE ---
Addendum entered by Walter Layne 01/31/20 03:19: THE HALDOL WAS NOT A 2 MG DOSE, IT WAS A 5 MG DOSE. DOSE ENTERED IN ERROR BY THIS NURSE. LIYA Original Note: FROM THE START OF THE SHIFT THE PATIENT HAS BEEN COMBATIVE AND REFUSING ALL CARE FROM STAFF. THERE ARE VERBAL THREATS. THE PATIENT IS VERY CONFUSED AND BELIEVES SHE IS AT HOME WITH HER DAUGHTER.THE PATIENT RECEIVED A 2MG DOSE OF HALDOL AT 2340. THIS MADE NO CHANGE IN THE PATIENT'S BEHAVIOR. PHYSICIAN CONTACTED AND INFORMED OF PATIENT'S BEHAVIOR. ORDERS GIVEN FOR ONE TIME IM ATIVAN 2MG. THE DOSE WAS ADMINISTERED TO THE PATIENT. WILL CONTINUE TO MONITOR PATIENT AND ATTEMPT TO PROVIDE SCHEDULE MEDICATIONS. DISCREPANCY WITH PYXIS: WHEN ATIVAN PULLED THIS NURSE MISCOUNTED THE AMOUNT PRESENT IN PYXIS AND A DISCREPANCY WAS CAUSED. CHARGE HELPED RESOLVE THE ISSUE AND PHARMACY NOTIFIED OF ISSUE.
[2020-01-31] MEDS: lactulose oral liq 20 gm/30 mL UDC 200 GM PR ×2 (03:12→22:21)
[2020-01-31 04:00] VITALS: BP 106/69; PULSE 101; RESP 20; TEMP 36.7; O2SAT 94
[2020-01-31 05:33] LABS: Glucose Point of Care 202 mg/dL (70-110)
[2020-01-31 07:15] VITALS: BP 118/68; PULSE 108; RESP 22; TEMP 36.7; O2SAT 93
--- NOTE | 2020-01-31 07:48 | PC.NURSE ---
Patient refuses to keep telemetry on and repeatedly takes it off once it is placed. She becomes agitated when attempting to explain the benefits.
--- NOTE | 2020-01-31 08:19 | PC.CHAP ---
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 visit [] Patient/Family/Request visit [] Outpatient visit [] Follow-up visit [] Physician referral [] Code/Alert [x] Routine visit [] Staff referral [] Actively dying [] Patient sleeping [] Family support [] [] Out of room [] Palliative care [] [] Receiving care in room [] Pre-surgical visit [] Trauma [] Long length of stay [] ICU visit [x] Other: setter Relational/Emotional Strength [] Patient feels connected with others/family/visitors/staff [] Distress [] Loneliness/isolation [] Abandonment Spirituality of Patient [] Person of Rhea [] Attends Caodaism of their Rhea [] Believes in Prayer [] Reads Bible or Rastafari materials [] There are Spiritual issues to be addressed Toy Consultant Interventions [x] Prayer [] Active listening [] Non-anxious presence [] Spiritual/emotional support [] Crisis/trauma care [] Spiritual counseling [] Bereavement support [] Provided bereavement packet [] Provided Bible/devotional materials [] Provided toy/stuffed animal, coloring book to patient or family member [] Provided Communion [] Anointing/[place] [] Salvation [x] Completed spiritual assessment [] Other: Impact on Illness or Injury [] Angry [] Fearful [] Anxious [] Often cries [] Exhaustion [] Unable to work [] Unable to attend religious [] Unable to walk/stand [] Unable to read [] Unable to drive [] Unable to eat/drink [] Unable to sleep [] Unable to be with family [] Patient intubated [] Other: Summary Patient had a rough AM... distressed... resting soundly now Time spent with patient
[2020-01-31] MEDS: pantoprazole DR 40 mg Tablet PO (08:28)
[2020-01-31] MEDS: levothyroxine 150 mcg Tablet PO (08:28)
[2020-01-31] MEDS: metoprolol tartrate 25 mg Tablet 12.5 MG PO (08:28)
[2020-01-31] MEDS: OLANZapine 5 mg TABLET 2.5 MG PO (08:29)
[2020-01-31 09:50] LABS: Hemoglobin 8.8 g/dL (11.5-15.3)
[2020-01-31 10:06] LABS: Ammonia 58 umol/L (11-51)
[2020-01-31 10:32] LABS: Alanine Aminotransferase 13 U/L (0-33); Albumin Level 2.8 g/dL (3.5-5.2); Alkaline Phosphatase 220 IU/L (35-105); Anion Gap 11.2 (5-19); Aspartate Amino Transferase 33 U/L (0-32); Blood Urea Nitrogen 23 mg/dL (8-23); Calcium 8.9 mg/dL (8.5-10.5); Carbon Dioxide 19 mmol/L (22-29); Chloride 108 mmol/L (98-107); Globulin 5.9 g/dL (1.3-4.6); Glucose 200 mg/dL (65-115); Osmolality Calculated 282 mOsm/kg (285-295); Potassium 3.2 mmol/L (3.5-5.1); Sodium 135 mmol/L (136-145); Total Bilirubin 0.5 mg/dL (0.15-1.2); Total Protein 8.7 g/dL (6.6-8.7)
[2020-01-31] MEDS: D5-NS 0.45% + KCL 20 mEq 20 MEQ/1,000 ML BAG 75 MEQ IV (10:35)
[2020-01-31 11:01] LABS: Glucose Point of Care 173 mg/dL (70-110)
--- NOTE | 2020-01-31 11:10 | PC.RESP ---
Pulmonary Rehab information sent to patient.
[2020-01-31 11:14] VITALS: BP 138/86; PULSE 112; RESP 24; TEMP 36.8; O2SAT 93
[2020-01-31] MEDS: morphine 4 mg/mL SDV 1 mL 2 MG IVP (11:21)
--- NOTE | 2020-01-31 11:29 | PC.NURSE ---
Patient is resting in bed with eyes closed and call light in reach. Woke up per 1:1 sitter and was moaning and crying out. When asked if she was hurting she answered with a moan with her eyes still closed. Pt given 2mg of Morphine via IV route due to the patient being NPO and not awake enough to give PO medication.
[2020-01-31 15:08] VITALS: BP 138/76; PULSE 92; RESP 20; TEMP 36.4; O2SAT 97
--- NOTE | 2020-01-31 17:38 | PC.NURSE ---
Patient awake and conversing pleasantly with one on one sitter. Refused the aid when she attempted to get her blood sugar. Patient eating ice and not having any problems swallowing at this time.
[2020-01-31 19:32] VITALS: PULSE 96; RESP 16; TEMP 36.7; O2SAT 96
--- NOTE | 2020-01-31 19:33 | PC.NURSE ---
Patient would not let me get bp, but allowed for every other vital.
[2020-01-31 20:27] LABS: Glucose Point of Care 221 mg/dL (70-110)
--- NOTE | 2020-01-31 21:17 | P.PN_ITS ---
Subjective Subjective: Interval history: Was agitated overnight and received a 2 mg dose of Ativan. much of the day sleeping, sitter at bedside, minimal oral intake. Noted to have diffuse wheezing later in the afternoon so IV fluid hydration discontinued. Noted stability in hemoglobin and improvement in ammonia. Had 500 mL urine output overnight. Blood cultures are negative, urine culture negative as well. Medications: Reviewed: Yes Medication Review Details: Active Medications Generic Name Dose Route Start Last Admin Trade Name Freq PRN Reason Stop Dose Admin Acetaminophen 650 mg 01/29/20 17:31 Tylenol PO Q6H PRN Mild/Mod Pain Or Temp >/= 101 Hydrocodone Bitart /Acetaminophen 1 tab 01/29/20 17:31 [place] 5-325 Mg PO Q8H PRN SEVERE PAIN Dextrose 25 ml 01/29/20 17:31 D50w IVP ONCE PRN hypoglycemia prot ocol Protocol Dextrose 50 ml 01/29/20 17:31 D50w IVP PRN PRN hypoglycemia prot ocol Protocol Ferrous Sulfate 325 mg 01/31/20 09:00 01/31/20 08:27 Ferrous Sulfate PO Not Given EVERY OTHER DAY S [facility] Glucagon 1 mg 01/29/20 17:31 Glucagen IM ONCE PRN Adult Acute Hypog lycemia Prot. Protocol Haloperidol Lactat e 5 mg 01/30/20 15:08 01/30/20 23:40 Haldol Inj IM 5 mg Q6H PRN Administration AGITATION Imipenem/Cilastati n Sodium 250 100 mls @ 200 mls /hr 01/29/20 18:00 01/31/20 17:37 mg/ Sodium Chlor tracie IV 200 mls/hr Q6H GIOVANNY Administration Dextrose 500 mls @ 100 mls /hr 01/29/20 17:31 D5w IV ONCE PRN Adult Acute Hypog lycemia Prot Protocol Insulin Aspart 0 unit 01/29/20 18:00 01/31/20 21:13 Novolog SUBCUT 6 unit WM&BEDTIME GIOVANNY Administration Protocol Lactulose 200 gm 01/29/20 16:30 01/31/20 16:30 Constulose RI Not Given Q6H GIOVANNY Levothyroxine Sodi um 150 mcg 01/30/20 09:00 01/31/20 08:28 Synthroid PO 150 mcg DAILY GIOVANNY Administration Metoprolol Tartrat e 12.5 mg 01/29/20 18:00 01/31/20 17:19 Lopressor PO Not Given BID GIOVANNY Morphine Sulfate 2 mg 01/29/20 17:31 01/31/20 11:21 Morphine IVP 2 mg Q4H PRN Administration SEVERE PAIN Olanzapine 2.5 mg 01/29/20 18:00 01/31/20 17:20 Zyprexa PO Not Given BID GIOVANNY Ondansetron HCl 4 mg 01/29/20 17:31 Zofran IVP Q8H PRN vomiting, or N/V if npo Pantoprazole Sodiu m 40 mg 01/30/20 09:00 01/31/20 08:28 Protonix PO 40 mg DAILY GIOVANNY Administration Rifaximin 550 mg 01/30/20 09:00 01/31/20 08:28 Xifaxan PO 550 mg DAILY GIOVANNY Administration celecoxib [From Celebrex] Allergy (Intermediate, Verified 01/18/20 15:02) confusion meperidine [From Demerol] Allergy (Verified 01/18/20 15:02) Unknown theophylline Allergy (Verified 01/18/20 15:02) Unknown Vitals/I&O/Wt Last Vital Signs Temp 98.1 F 01/31/20 19:32 Pulse 96 01/31/20 19:32 Resp 16 01/31/20 19:32 BP 138/76 01/31/20 15:08 Pulse Ox 96 01/31/20 19:32 01/31/20 01/31/20 01/31/20 06:59 14:59 22:59 Intake Total 0 / 2232.5 100 / 100 720 / 820 Output Total 500 / 1176 800 / 800 450 / 1250 Balance -500 / 1056.5 -700 / -700 270 / -430 Weight last 48 hrs Weight 89.222 kg Weight 87.634 kg Physical Exam Const: GENERAL APPEARANCE: frail appearing and appears older than stated age NUTRITIONAL APPEARANCE: obese OTHER: -Resting quietly in bed HENMT: COMMON NORMALS: normocephalic, atraumatic and hearing grossly normal bilaterally HEAD & SCALP: normocephalic and atraumatic MOUTH: moist mucous membranes abnormal Details: parched Eye: COMMON NORMALS: Equal, round and reactive pupils present, EOMs intact bilaterally and conjunctivae normal CONJUNCTIVA: Yes conjunctivae normal PUPIL: Yes Equal, round and reactive pupils present Neck/C-Spine: COMMON NORMALS: full ROM GENERAL: Yes normal visual inspection and Yes trachea midline Resp: COMMON NORMALS: normal respiratory effort, No retractions, No use of accessory muscles and clear to auscultation bilaterally EFFORT & INSPECTION: Yes able to speak in complete sentences, Yes symmetric chest movement and No tachypneic AUSCULTATION: clear to auscultation bilaterally OTHER: -on RA Cardio: COMMON NORMALS: regular rate, regular rhythm, S1 normal heart sound present, S2 normal heart sound present and No murmurs present (Cardio) RATE: regular rate RHYTHM: regular rhythm HEART SOUNDS: S1 normal heart sound present and S2 normal heart sound present GI: COMMON NORMALS: Normal to inspection, nondistended, normoactive bowel sounds present and Soft to palpation INSPECTION: Yes central obesity PALPATION: Yes Soft to palpation : BLADDER/KIDNEY EXAM: Yes catheter in place Catheter type (Female): urethral Extremity: COMMON NORMALS: normal to inspection, full ROM and no clubbing, cyanosis or edema; negative for no pedal edema Neuro: COMMON NORMALS: moves all extremities, no focal motor deficits and no sensory deficits noted SENSORIUM/ORIENTATION: Yes obtunded Psych: COMMON NORMALS: normal affect and speech normal SPEECH: Yes normal s peech MEMORY/COGNITION: Yes cognition grossly impaired INSIGHT: Poor insight present (Psych) Skin: COMMON NORMALS: no rashes or lesions noted, no jaundice, no petechiae and no mottling GENERAL SKIN EXAM: no rashes or lesions noted Urinary Catheter Management^: Chow: Cath Placed During This Visit: yes Reason for Continuing Indwelling Catheter: Other Urinary Catheter Date of Insertion: 01/29/20 Urinary Catheter Time of Insertion: 14:36 Data : 01/31/20 09:30 01/31/20 09:30 Micro: Microbiology 01/29/20 14:24 Urine Culture - Final Urine,Clean Catch A&P Assessment and plan (1) Altered mental status: -likely multifactorial given significant underlying dementia, recurrent UTI, hyperammonemia -Patient is confused at baseline due to underlying dementia; per daughter confusion has been increasing for the past few days since her recent discharge from the hospital during which time she was treated for UTI and hepatic encephalopathy -Given current mental status will keep n.p.o. due to risk of aspiration -Lactulose enemas till p.o. appropriate -Daily ammonia levels; improved -Treatment of UTI as noted below -Strict fall, aspiration precautions -IVF hydration as has had poor oral intake recently and clinically appears dehydrated. Will discontinue IV fluids as noted wheezing this afternoon -needs one-on-one monitoring due to high fall risk Status: Acute Qualifiers: Altered mental status type: unspecified Qualified Code(s): R41.82 - Altered mental status, unspecified (2) Hyperammonemia: -Has noted acute hepatic encephalopathy secondary to underlying liver cirrhosis evidenced by hyperammonemia -Lactulose enemas till p.o. appropriate. Would avoid NG tube placement as likely to pull this out and there is continued risk of aspiration -Daily ammonia levels; improving Status: Acute (3) Recurrent UTI: -Has noted history of recurrent UTIs, most recently treated with amoxicillin secondary to Enterococcus faecalis on most recent urine culture -Urinalysis today grossly indicative of infection with noted leukocyte esterase, hematuria, pyuria, bacteria -will discontinue abx as cultures negative -urine cx: prelim negative -blood cx: prelim negative -Chow catheter placed in ER, assess daily for removal, monitor urine output Status: Acute (4) Hypothyroidism: -continue levothyroxine Status: Chronic Qualifiers: Hypothyroidism type: unspecified Qualified Code(s): E03.9 - Hypothyroidism, unspecified (5) Normocytic anemia: -Has chronic normocytic anemia -Baseline hemoglobin is around 9 -Continue to monitor hemoglobin Status: Acute (6) Chronic kidney disease, stage III (moderate): -Baseline creatinine appears to be around 1.3-1.7 -Current renal function at baseline; continue to monitor -Avoid nephrotoxins, renally dose meds Status: Chronic (7) Hyponatremia: -Likely secondary to dehydration from poor oral intake -IVF hydration -Sodium level today wnl Status: Resolved (8) Dementia without behavioral disturbance: -Clinically appears to have advanced dementia -requiring one-on-one monitoring due to high fall risk and need for frequent reorientation Status: Chronic Qualifiers: Dementia type: Alzheimer's disease Alzheimer's disease onset: unspecified onset Qualified Code(s): G30.9 - Alzheimer's disease, unspecified; F02.80 - Dementia in other diseases classified elsewhere without behavioral disturbance (9) COPD (chronic obstructive pulmonary disease): -Not oxygen dependent at baseline -No acute exacerbation currently Status: Chronic Qualifiers: COPD type: unspecified COPD Qualified Code(s): J44.9 - Chronic obstructive pulmonary disease, unspecified (10) GERD (gastroesophageal reflux disease): -continue PPI Status: Chronic Qualifiers: Esophagitis presence: esophagitis presence not specified Qualified Code(s): K21.9 - Gastro-esophageal reflux disease without esophagitis (11) Cirrhosis of liver: -Has history of idiopathic liver cirrhosis -Follows up with Dr. Alexis -Noted elevated LFTs, consistent with liver cirrhosis -on rifaximin; hold Aldactone due to dehydration Status: Chronic Qualifiers: Hepatic cirrhosis type: unspecified hepatic cirrhosis Ascites presence: without ascites Qualified Code(s): K74.60 - Unspecified cirrhosis of liver Additional A&P Information -Chronic constipation, on lactulose -NIDDM type II, A1c (11/2019)-9.7; ISS, hypoglycemia precautions especially when NPO -GI ppx with PPI -DVT ppx with SCDs, no AC due to anemia -Dispo: per discussion with daughter Cristela Henson wants patient to return home on discharge; declined SNF which has been discussed on previous occasions -Code status: FULL code; discussed with daughter over the phone; Cristela is her DPOA Attestations Medical Necessity Statement*: Patient requires hospitalization for continued management of hepatic encephalopathy with continued alteration in mental status. Time Spent in Patient Care: 16 - 35 minutes (>than 50% of time spent in counselling and/or direct pt care on unit) . Coding Level of Care Code Acute Senior Director Finance for Chg Fwd Diagnoses Altered mental status R41.82 Altered mental status type: unspecified Hyperammonemia E72.20 Recurrent UTI N39.0 Hypothyroidism E03.9 Hypothyroidism type: unspecified Normocytic anemia D64.9 Chronic kidney disease, stage III (moderate) N18.3 Hyponatremia E87.1 Dementia without behavioral disturbance G30.9; F02.80 Dementia type: Alzheimer's disease Alzheimer's disease onset: unspecified onset COPD (chronic obstructive pulmonary disease) J44.9 COPD type: unspecified COPD GERD (gastroesophageal reflux disease) K21.9 Esophagitis presence: esophagitis presence not specified Cirrhosis of liver K74.60 Hepatic cirrhosis type: unspecified hepatic cirrhosis Ascites presence: without ascites
--- NOTE | 2020-01-31 22:38 | PC.NURSE ---
LACTULOSE ENEMA Very resistant to getting Lactulose enema. Does not want to take it. After quite a bit of talking and encouragement let us give it to her. Retained most of solution.
[2020-02-01] VITALS (7 sets, daily range): BP systolic 115–152; BP diastolic 59–79; PULSE 83–110; RESP 16–24; TEMP 36.6–37.6; O2SAT 85–99
--- NOTE | 2020-02-01 05:12 | PC.NURSE ---
SHIFT SUMMARY Rested well tonight after going to sleep. When awake was argumentative about doing things but has not been combative. Confused but alert and no lethargy noted. Was talked into evening enema but this morning would have none of it. Stated she was not going to take it and no one can make her. 1:1 sitter at bedside all shift
[2020-02-01 05:18] LABS: Hemoglobin 9.1 g/dL (11.5-15.3)
[2020-02-01 05:29] LABS: Ammonia 43 umol/L (11-51)
[2020-02-01 06:08] LABS: Alanine Aminotransferase 11 U/L (0-33); Albumin Level 2.8 g/dL (3.5-5.2); Alkaline Phosphatase 203 IU/L (35-105); Anion Gap 13.5 (5-19); Aspartate Amino Transferase 28 U/L (0-32); Blood Urea Nitrogen 21 mg/dL (8-23); Calcium 8.5 mg/dL (8.5-10.5); Carbon Dioxide 19 mmol/L (22-29); Chloride 105 mmol/L (98-107); Globulin 6.2 g/dL (1.3-4.6); Glucose 208 mg/dL (65-115); Osmolality Calculated 281 mOsm/kg (285-295); Potassium 3.5 mmol/L (3.5-5.1); Sodium 134 mmol/L (136-145); Total Bilirubin 0.7 mg/dL (0.15-1.2)
[2020-02-01 06:21] LABS: Glucose Point of Care 203 mg/dL (70-110)
--- NOTE | 2020-02-01 09:13 | PC.SOCIAL ---
IMM completed and copy of Medicare rights given to pt.
[2020-02-01] MEDS: levothyroxine 150 mcg Tablet PO (10:15)
[2020-02-01] MEDS: OLANZapine 5 mg TABLET 2.5 MG PO ×2 (10:15→17:57)
[2020-02-01] MEDS: metoprolol tartrate 25 mg Tablet 12.5 MG PO ×2 (10:15→17:57)
[2020-02-01] MEDS: pantoprazole DR 40 mg Tablet PO (10:15)
[2020-02-01 11:11] LABS: Glucose Point of Care 368 mg/dL (70-110)
--- NOTE | 2020-02-01 16:25 | P.PN_ITS ---
Subjective Subjective: Interval history: Did not need any medications for agitation overnight, had a 50 mL urine output, 2 bowel movements yesterday, none so far today, hemodynamically stable, on room air. Noted normalization of ammonia, stable hemoglobin and renal function. Seems to be tolerating some oral intake so we will switch to oral lactulose. Resting quietly in bed, sitter at bedside, has eaten some but done much better in terms of oral hydration. Remains confused but not agitated or combative. Medications: Reviewed: Yes Medication Review Details: Active Medications Generic Name Dose Route Start Last Admin Trade Name Freq PRN Reason Stop Dose Admin Acetaminophen 650 mg 01/29/20 17:31 Tylenol PO Q6H PRN Mild/Mod Pain Or Temp >/= 101 Hydrocodone Bitart /Acetaminophen 1 tab 01/29/20 17:31 [place] 5-325 Mg PO Q8H PRN SEVERE PAIN Dextrose 25 ml 01/29/20 17:31 D50w IVP ONCE PRN hypoglycemia prot ocol Protocol Dextrose 50 ml 01/29/20 17:31 D50w IVP PRN PRN hypoglycemia prot ocol Protocol Ferrous Sulfate 325 mg 01/31/20 09:00 01/31/20 08:27 Ferrous Sulfate PO Not Given EVERY OTHER DAY S [facility] Glucagon 1 mg 01/29/20 17:31 Glucagen IM ONCE PRN Adult Acute Hypog lycemia Prot. Protocol Haloperidol Lactat e 5 mg 01/30/20 15:08 01/30/20 23:40 Haldol Inj IM 5 mg Q6H PRN Administration AGITATION Dextrose 500 mls @ 100 mls /hr 01/29/20 17:31 D5w IV ONCE PRN Adult Acute Hypog lycemia Prot Protocol Insulin Aspart 0 unit 01/29/20 18:00 02/01/20 12:50 Novolog SUBCUT 12 unit WM&BEDTIME GIOVANNY Administration Protocol Lactulose 30 gm 02/01/20 21:00 Constulose PO TID GIOVANNY Levothyroxine Sodi um 150 mcg 01/30/20 09:00 02/01/20 10:15 Synthroid PO 150 mcg DAILY GIOVANNY Administration Lorazepam 2 mg 01/31/20 21:19 Ativan IM Q4H PRN AGITATION Metoprolol Tartrat e 12.5 mg 01/29/20 18:00 02/01/20 10:15 Lopressor PO 12.5 mg BID GIOVANNY Administration Morphine Sulfate 2 mg 01/29/20 17:31 01/31/20 11:21 Morphine IVP 2 mg Q4H PRN Administration SEVERE PAIN Olanzapine 2.5 mg 01/29/20 18:00 02/01/20 10:15 Zyprexa PO 2.5 mg BID GIOVANNY Administration Ondansetron HCl 4 mg 01/29/20 17:31 Zofran IVP Q8H PRN vomiting, or N/V if npo Pantoprazole Sodiu m 40 mg 01/30/20 09:00 02/01/20 10:15 Protonix PO 40 mg DAILY GIOVANNY Administration Rifaximin 550 mg 01/30/20 09:00 02/01/20 10:15 Xifaxan PO 550 mg DAILY GIOVANNY Administration celecoxib [From Celebrex] Allergy (Intermediate, Verified 01/18/20 15:02) confusion meperidine [From Demerol] Allergy (Verified 01/18/20 15:02) Unknown theophylline Allergy (Verified 01/18/20 15:02) Unknown Vitals/I&O/Wt Last Vital Signs Temp 99.2 F 02/01/20 15:07 Pulse 90 02/01/20 15:07 Resp 16 02/01/20 15:07 BP 152/71 02/01/20 15:07 Pulse Ox 95 02/01/20 15:07 02/01/20 02/01/20 02/01/20 06:59 14:59 22:59 Intake Total 0 / 820 720 / 720 Output Total 850 / 2100 Balance -850 / -1280 720 / 720 Weight last 48 hrs Weight 83.688 kg Weight 89.222 kg Physical Exam Const: COMMON NORMALS: alert GENERAL APPEARANCE: frail appearing and appears older than stated age NUTRITIONAL APPEARANCE: obese ORIENTATION/CONSCIOUSNESS: Yes awake and Yes confused OTHER: -Resting quietly in bed HENMT: COMMON NORMALS: normocephalic, atraumatic, hearing grossly normal bilaterally and moist oral mucous membranes HEAD & SCALP: normocephalic and atraumatic Eye: COMMON NORMALS: Equal, round and reactive pupils present, EOMs intact bilaterally and conjunctivae normal CONJUNCTIVA: Yes conjunctivae normal PUPIL: Yes Equal, round and reactive pupils present Neck/C-Spine: COMMON NORMALS: full ROM GENERAL: Yes normal visual inspection and Yes trachea midline Resp: COMMON NORMALS: normal respiratory effort, No retractions, No use of accessory muscles and clear to auscultation bilaterally EFFORT & INSPECTION: Yes able to speak in complete sentences, Yes symmetric chest movement and No tachypneic AUSCULTATION: clear to auscultation bilaterally OTHER: -on RA Cardio: COMMON NORMALS: regular rate, regular rhythm, S1 normal heart sound present, S2 normal heart sound present and No murmurs present (Cardio) RATE: regular rate RHYTHM: regular rhythm HEART SOUNDS: S1 normal heart sound present and S2 normal heart sound present GI: COMMON NORMALS: Normal to inspection, nondistended, normoactive bowel soun ds present and Soft to palpation INSPECTION: Yes central obesity PALPATION: Yes Soft to palpation : BLADDER/KIDNEY EXAM: Yes catheter in place Catheter type (Female): urethral Extremity: COMMON NORMALS: normal to inspection, full ROM and no clubbing, cyanosis or edema; negative for no pedal edema Neuro: COMMON NORMALS: moves all extremities, no focal motor deficits and no sensory deficits noted SENSORIUM/ORIENTATION: Yes alert and Yes Orientation impaired Psych: COMMON NORMALS: speech normal ATTITUDE: Yes calm SPEECH: Yes no rmal speech MOOD & AFFECT: Yes Flat affect present MEMORY/COGNITION: Yes cognition grossly impaired INSIGHT: Poor insight present (Psych) Skin: COMMON NORMALS: no rashes or lesions noted, no jaundice, no petechiae and no mottling GENERAL SKIN EXAM: no rashes or lesions noted Urinary Catheter Management^: Chow: Cath Placed During This Visit: yes Reason for Continuing Indwelling Catheter: Other Urinary Catheter Date of Insertion: 01/29/20 Urinary Catheter Time of Insertion: 14:36 Data : 02/01/20 04:55 02/01/20 04:55 A&P Assessment and plan (1) Altered mental status: -likely multifactorial given significant underlying dementia, recurrent UTI, hyperammonemia -Patient is confused at baseline due to underlying dementia; per daughter confusion has been increasing for the past few days since her recent discharge from the hospital during which time she was treated for UTI and hepatic encephalopathy -supervision with meals -Lactulose PO -ammonia normalized -Treatment of UTI as noted below -Strict fall, aspiration precautions -off IVF hydration; encourage oral hydration -on one-on-one monitoring due to high fall risk Status: Acute Qualifiers: Altered mental status type: unspecified Qualified Code(s): R41.82 - Altered mental status, unspecified (2) Hyperammonemia: -Has noted acute hepatic encephalopathy secondary to underlying liver cirrhosis evidenced by hyperammonemia -Lactulose PO. Would avoid NG tube placement as likely to pull this out and there is continued risk of aspiration -ammonia normalized Status: Acute (3) Recurrent UTI: -Has noted history of recurrent UTIs, most recently treated with amoxicillin secondary to Enterococcus faecalis on most recent urine culture -Urinalysis today grossly indicative of infection with noted leukocyte esterase, hematuria, pyuria, bacteria -off abx as cultures negative -urine cx: prelim negative -blood cx: prelim negative -Chow catheter placed in ER, d/c today, monitor urine output Status: Acute (4) Hypothyroidism: -continue levothyroxine Status: Chronic Qualifiers: Hypothyroidism type: unspecified Qualified Code(s): E03.9 - Hypothyroidism, unspecified (5) Normocytic anemia: -Has chronic normocytic anemia -Baseline hemoglobin is around 9; Hg at baseline Status: Chronic (6) Chronic kidney disease, stage III (moderate): -Baseline creatinine appears to be around 1.3-1.7 -renal function at baseline -Avoid nephrotoxins, renally dose meds Status: Chronic (7) Hyponatremia: -Likely secondary to dehydration from poor oral intake -off IVF; encourage oral hydration -Sodium level normalized Status: Resolved (8) Dementia without behavioral disturbance: -Clinically appears to have advanced dementia; baseline mental status tends to wax and wane -requiring one-on-one monitoring due to high fall risk and need for frequent reorientation Status: Chronic Qualifiers: Alzheimer's disease onset: unspecified onset Dementia type: Alzheimer's disease Qualified Code(s): G30.9 - Alzheimer's disease, unspecified; F02.80 - Dementia in other diseases classified elsewhere without behavioral disturbance (9) COPD (chronic obstructive pulmonary disease): -Not oxygen dependent at baseline -No acute exacerbation currently Status: Chronic Qualifiers: COPD type: unspecified COPD Qualified Code(s): J44.9 - Chronic obstructive pulmonary disease, unspecified (10) GERD (gastroesophageal reflux disease): -continue PPI Status: Chronic Qualifiers: Esophagitis presence: esophagitis presence not specified Qualified C ode(s): K21.9 - Gastro-esophageal reflux disease without esophagitis (11) Cirrhosis of liver: -Has history of idiopathic liver cirrhosis -Follows up with Dr. Alexis -Noted elevated LFTs, consistent with liver cirrhosis -on rifaximin; hold Aldactone due to dehydration Status: Chronic Qualifiers: Ascites presence: without ascites Hepatic cirrhosis type: unspecified hepatic cirrhosis Qualified Code(s): K74.60 - Unspecified cirrhosis of liver Additional A&P Information -Chronic constipation, on lactulose -NIDDM type II, A1c (11/2019)-9.7; ISS, hypoglycemia precautions especially when NPO -GI ppx with PPI -DVT ppx with SCDs, no AC due to anemia -Dispo: per discussion with daughter Cristela Henson wants patient to return home on discharge; declined SNF which has been discussed on previous occasions -Code status: FULL code; discussed with daughter over the phone; Cristela is her DPOA Attestations Medical Necessity Statement*: Patient requires hospitalization for continued management of altered mental status, pending improved PO tolerance/intake. Time Spent in Patient Care: 16 - 35 minutes (>than 50% of time spent in counselling and/or direct pt care on unit) . Coding Level of Care Code Acute Hotel Administrative Assistant for Chg Fwd Exam Comprehensive Diagnoses Altered mental status R41.82 Altered mental status type: unspecified Hyperammonemia E72.20 Recurrent UTI N39.0 Hypothyroidism E03.9 Hypothyroidism type: unspecified Normocytic anemia D64.9 Chronic kidney disease, stage III (moderate) N18.3 Hyponatremia E87.1 Dementia without behavioral disturbance G30.9; F02.80 Alzheimer's disease onset: unspecified onset Dementia type: Alzheimer's disease COPD (chronic obstructive pulmonary disease) J44.9 COPD type: unspecified COPD GERD (gastroesophageal reflux disease) K21.9 Esophagitis presence: esophagitis presence not specified Cirrhosis of liver K74.60 Ascites presence: without ascites Hepatic cirrhosis type: unspecified hepatic cirrhosis
[2020-02-01 21:18] LABS: Glucose Point of Care 432 mg/dL (70-110)
[2020-02-01 21:18] LABS: Glucose Point of Care 451 mg/dL (70-110)
[2020-02-01] MEDS: lactulose oral liq 20 gm/30 mL UDC 30 GM PO (21:33)
[2020-02-02 04:00] VITALS: BP 112/57; PULSE 90; RESP 16; TEMP 36.9; O2SAT 93
[2020-02-02 06:34] LABS: Glucose Point of Care 290 mg/dL (70-110)
--- NOTE | 2020-02-02 06:57 | PC.NURSE ---
Shift Summary Patient was calm and cooperative over night. Patient did pull out her IV and was compliant in receiving a new IV insertion. Chow Catheter was removed at 06:15 with catheter in tact. Overall, patient rested well without any events.
[2020-02-02 07:16] VITALS: BP 124/73; PULSE 86; RESP 16; TEMP 36.7; O2SAT 94
[2020-02-02] MEDS: lactulose oral liq 20 gm/30 mL UDC 30 GM PO ×2 (08:22→15:40)
[2020-02-02] MEDS: metoprolol tartrate 25 mg Tablet 12.5 MG PO ×2 (08:23→17:33)
[2020-02-02] MEDS: levothyroxine 150 mcg Tablet PO (08:23)
[2020-02-02] MEDS: pantoprazole DR 40 mg Tablet PO (08:23)
[2020-02-02] MEDS: OLANZapine 5 mg TABLET 2.5 MG PO ×2 (08:24→17:33)
[2020-02-02 11:23] VITALS: BP 123/72; PULSE 76; RESP 15; TEMP 36.6; O2SAT 95
[2020-02-02 15:38] VITALS: BP 128/62; PULSE 82; RESP 17; TEMP 36.8; O2SAT 97
--- NOTE | 2020-02-02 16:12 | PM.PN ---
Subjective Subjective: Interval history: Seen during physical therapy session, awake, confused, has difficulty following commands, difficulty getting up from bed even with assistance. Sitter has been discontinued. Called and updated daughter Cristela on patient's clinical status and we discussed disposition. She may reconsider rehab as an option, I requested case management to follow-up on this. Hemodynamically stable, on room air, afebrile. Had 800 mL urine output overnight, Chow catheter removed earlier this AM. Medications: Reviewed: Yes Medication Review Details: Active Medications Generic Name Dose Route Start Last Admin Trade Name Freq PRN Reason Stop Dose Admin Acetaminophen 650 mg 01/29/20 17:31 Tylenol PO Q6H PRN Mild/Mod Pain Or Temp >/= 101 Hydrocodone Bitart /Acetaminophen 1 tab 01/29/20 17:31 [place] 5-325 Mg PO Q8H PRN SEVERE PAIN Dextrose 25 ml 01/29/20 17:31 D50w IVP ONCE PRN hypoglycemia prot ocol Protocol Dextrose 50 ml 01/29/20 17:31 D50w IVP PRN PRN hypoglycemia prot ocol Protocol Ferrous Sulfate 325 mg 01/31/20 09:00 02/02/20 08:23 Ferrous Sulfate PO Not Given EVERY OTHER DAY S [facility] Glucagon 1 mg 01/29/20 17:31 Glucagen IM ONCE PRN Adult Acute Hypog lycemia Prot. Protocol Haloperidol Lactat e 5 mg 01/30/20 15:08 01/30/20 23:40 Haldol Inj IM 5 mg Q6H PRN Administration AGITATION Dextrose 500 mls @ 100 mls /hr 01/29/20 17:31 D5w IV ONCE PRN Adult Acute Hypog lycemia Prot Protocol Insulin Aspart 0 unit 01/29/20 18:00 02/02/20 11:13 Novolog SUBCUT Not Given WM&BEDTIME GIOVANNY Protocol Lactulose 30 gm 02/01/20 21:00 02/02/20 15:40 Constulose PO 30 gm TID GIOVANNY Administration Levothyroxine Sodi um 150 mcg 01/30/20 09:00 02/02/20 08:23 Synthroid PO 150 mcg DAILY GIOVANNY Administration Lorazepam 2 mg 01/31/20 21:19 Ativan IM Q4H PRN AGITATION Metoprolol Tartrat e 12.5 mg 01/29/20 18:00 02/02/20 08:23 Lopressor PO 12.5 mg BID GIOVANNY Administration Morphine Sulfate 2 mg 01/29/20 17:31 01/31/20 11:21 Morphine IVP 2 mg Q4H PRN Administration SEVERE PAIN Olanzapine 2.5 mg 01/29/20 18:00 02/02/20 08:24 Zyprexa PO 2.5 mg BID GIOVANNY Administration Ondansetron HCl 4 mg 01/29/20 17:31 Zofran IVP Q8H PRN vomiting, or N/V if npo Pantoprazole Sodiu m 40 mg 01/30/20 09:00 02/02/20 08:23 Protonix PO 40 mg DAILY GIOVANNY Administration Rifaximin 550 mg 01/30/20 09:00 02/02/20 08:25 Xifaxan PO 550 mg DAILY GIOVANNY Administration celecoxib [From Celebrex] Allergy (Intermediate, Verified 01/18/20 15:02) confusion meperidine [From Demerol] Allergy (Verified 01/18/20 15:02) Unknown theophylline Allergy (Verified 01/18/20 15:02) Unknown Vitals/I&O/Wt Last Vital Signs Temp 98.2 F 02/02/20 15:38 Pulse 82 02/02/20 15:38 Resp 17 02/02/20 15:38 BP 128/62 02/02/20 15:38 Pulse Ox 97 02/02/20 15:38 02/02/20 02/02/20 02/02/20 06:59 14:59 22:59 Intake Total 240 / 1320 360 / 360 Output Total 800 / 1800 Balance -560 / -480 360 / 360 Weight last 48 hrs Weight 84.623 kg Weight 83.688 kg Physical Exam Const: COMMON NORMALS: alert GENERAL APPEARANCE: frail appearing and appears older than stated age NUTRITIONAL APPEARANCE: obese ORIENTATION/CONSCIOUSNESS: Yes awake and Yes confused OTHER: -sitting up at edge of bed HENMT: COMMON NORMALS: normocephalic, atraumatic, hearing grossly normal bilaterally and moist oral mucous membranes HEAD & SCALP: normocephalic and atraumatic MOUTH: moist mucous membranes abnormal Details: parched Eye: COMMON NORMALS: Equal, round and reactive pupils present, EOMs intact bilaterally and conjunctivae normal CONJUNCTIVA: Yes conjunctivae normal PUPIL: Yes Equal, round and reactive pupils present Neck/C-Spine: COMMON NORMALS: full ROM GENERAL: Yes normal visual inspection and Yes trachea midline Resp: COMMON NORMALS: normal respiratory effort, No retractions, No use of accessory muscles and clear to auscultation bilaterally EFFORT & INSPECTION: Yes able to speak in complete sentences, Yes symmetric chest movement and No tachypneic AUSCULTATION: clear to auscultation bilaterally OTHER: -on RA Cardio: COMMON NORMALS: regular rate, regular rhythm, S1 normal heart sound present, S2 normal heart sound present and No murmurs present (Cardio) RATE: regular rate RHYTHM: regular rhythm HEART SOUNDS: S1 normal heart sound present and S2 normal heart sound present GI: COMMON NORMALS: Normal to inspection, nondistended, normoactive bowel sounds present and Soft to palpation INSPECTION: Yes central obesity PALPATION: Yes Soft to palpation Extremity: COMMON NORMALS: normal to inspection, full ROM and no clubbing, cyanosis or edema; negative for no pedal edema Neuro: COMMON NORMALS: moves all extremities, no focal motor deficits and no sensory deficits noted SENSORIUM/ORIENTATION: Yes alert and Yes Orientation impaired Psych: COMMON NORMALS: speech normal ATTITUDE: Yes calm SPEECH: Yes normal speech MOOD & AFFECT: Yes Flat affect present MEMORY/COGNITION: Yes cognition grossly impaired INSIGHT: Poor insight present (Psych) Skin: COMMON NORMALS: no rashes or lesions noted, no jaundice, no petechiae and no mottling GENERAL SKIN EXAM: no rashes or lesions noted Urinary Catheter Management^: Chow: Cath Placed During This Visit: yes, but has since been removed by the nurse Reason for Continuing Indwelling Catheter: Other Urinary Catheter Date of Insertion: 01/29/20 Urinary Catheter Time of Insertion: 14:36 Date Urinary Catheter Removed: 02/02/20 Time Urinary Catheter Discontinued: 06:21 Data : 02/01/20 04:55 02/01/20 04:55 A&P Assessment and plan (1) Altered mental status: -likely multifactorial given significant underlying dementia, recurrent UTI, hyperammonemia -Patient is confused at baseline due to underlying dementia; per daughter confusion has been increasing for the past few days since her recent discharge from the hospital during which time she was treated for UTI and hepatic encephalopathy -supervision with meals -Lactulose PO -ammonia normalized -Treatment of UTI as noted below -Strict fall, aspiration precautions -off IVF hydration; encourage oral hydration -on one-on-one monitoring due to high fall risk Status: Acute Qualifiers: Altered mental status type: unspecified Qualified Code(s): R41.82 - Altered mental status, unspecified (2) Hyperammonemia: -Has noted acute hepatic encephalopathy secondary to underlying liver cirrhosis evidenced by hyperammonemia -Lactulose PO. Would avoid NG tube placement as likely to pull this out and there is continued risk of aspiration -ammonia normalized Status: Acute (3) Recurrent UTI: -Has noted history of recurrent UTIs, most recently treated with amoxicillin secondary to Enterococcus faecalis on most recent urine culture -Urinalysis today grossly indicative of infection with noted leukocyte esterase, hematuria, pyuria, bacteria -off abx as cultures negative -urine cx: prelim negative -blood cx: prelim negative -Chow catheter placed in ER, d/c today, monitor urine output Status: Acute (4) Hypothyroidism: -continue levothyroxine Status: Chronic Qualifiers: Hypothyroidism type: unspecified Qualified Code(s): E03.9 - Hypothyroidism, unspecified (5) Normocytic anemia: -Has chronic normocytic anemia -Baseline hemoglobin is around 9; Hg at baseline Status: Chronic (6) Chronic kidney disease, stage III (moderate): -Baseline creatinine appears to be around 1.3-1.7 -renal function at baseline -Avoid nephrotoxins, renally dose meds Status: Chronic (7) Hyponatremia: -Likely secondary to dehydration from poor oral intake -off IVF; encourage oral hydration -Sodium level normalized Status: Resolved (8) Dementia without behavioral disturbance: -Clinically appears to have advanced dementia; baseline mental status tends to wax and wane -requiring one-on-one monitoring due to high fall risk and need for frequent reorientation Status: Chronic Qualifiers: Dementia type: Alzheimer's disease Alzheimer's disease onset: unspecified onset Qualified Code(s): G30.9 - Alzheimer's disease, unspecified; F02.80 - Dementia in other diseases classified elsewhere without behavioral disturbance (9) COPD (chronic obstructive pulmonary disease): -Not oxygen dependent at baseline -No acute exacerbation currently Status: Chronic Qualifiers: COPD type: unspecified COPD Qualified Code(s): J44.9 - Chronic obstructive pulmonary disease, unspecified (10) GERD (gastroesophageal reflux disease): -continue PPI Status: Chronic Qualifiers: Esophagitis presence: esophagitis presence not specified Qualified Code(s): K21.9 - Gastro-esophageal reflux disease without esophagitis (11) Cirrhosis of liver: -Has history of idiopathic liver cirrhosis -Follows up with Dr. Alexis -Noted elevated LFTs, consistent with liver cirrhosis -on rifaximin; hold Aldactone due to dehydration Status: Chronic Qualifiers: Hepatic cirrhosis type: unspecified hepatic cirrhosis Ascites presence: without ascites Qualified Code(s): K74.60 - Unspecified cirrhosis of liver Additional A&P Information -Chronic constipation, on lactulose -NIDDM type II, A1c (11/2019)-9.7; ISS, hypoglycemia precautions -GI ppx with PPI -DVT ppx with SCDs, no AC due to anemia -Dispo: per discussion with daughter Cristela Henson willing to reconsider SNF placement, patient has previously been to [facility] and does not want to return there, will consider alternative facility. With patient's cognitive impairment, physical deconditioning, she needs 24/7 supervision and would benefit greatly from more intensive and consistent therapy -Code status: FULL code; discussed with daughter over the phone; Cristela is her DPOA Attestations Medical Necessity Statement*: Patient requires hospitalization for continued care pending appropriate disposition. Time Spent in Patient Care: 16 - 35 minutes (>than 50% of time spent in counselling and/or direct pt care on unit). Coding Level of Care Code Acute [employer] Consultant for Chg Fwd Diagnoses Altered mental status R41.82 Altered mental status type: unspecified Hyperammonemia E72.20 Recurrent UTI N39.0 Hypothyroidism E03.9 Hypothyroidism type: unspecified Normocytic anemia D64.9 Chronic kidney disease, stage III (moderate) N18.3 Hyponatremia E87.1 Dementia without behavioral disturbance G30.9; F02.80 Dementia type: Alzheimer's disease Alzheimer's disease onset: unspecified onset COPD (chronic obstructive pulmonary disease) J44.9 COPD type: unspecified COPD GERD (gastroesophageal reflux disease) K21.9 Esophagitis presence: esophagitis presence not specified Cirrhosis of liver K74.60 Hepatic cirrhosis type: unspecified hepatic cirrhosis Ascites presence: without ascites
[2020-02-02 20:00] VITALS: BP 124/69; PULSE 95; RESP 18; TEMP 36.8; O2SAT 96
[2020-02-02 21:18] LABS: Glucose Point of Care 579 mg/dL (70-110)
[2020-02-02 21:18] LABS: Glucose Point of Care 531 mg/dL (70-110)
[2020-02-02] MEDS: insulin glargine 100 units/1 mL 40 UNIT SUBCUT (21:44)
[2020-02-02 23:51] VITALS: BP 119/74; PULSE 89; RESP 14; TEMP 36.7; O2SAT 97
[2020-02-03] VITALS (7 sets, daily range): BP systolic 119–154; BP diastolic 63–70; PULSE 73–89; RESP 16–20; TEMP 36.7–36.9; O2SAT 93–95
--- NOTE | 2020-02-03 05:28 | PC.NURSE ---
Shift Summary Patient has rested well through the night with no episodes. Patient refused to take lactulose last night. Blood sugar was 579 for pm check. Patient was given 18 units of Novolog and 40 units of Lantus. Patient was able to tell me her name and after asking her what her last name was she responded with Paty and after asking what her first name is she responded with Melba .
[2020-02-03 07:10] LABS: Glucose Point of Care 177 mg/dL (70-110)
--- NOTE | 2020-02-03 10:30 | PC.SOCIAL ---
IMM Updated Page 2 of IMM updated and given to patient. Initialed, dated, and timed and placed back in chart.
[2020-02-03 10:57] LABS: Glucose Point of Care 214 mg/dL (70-110)
--- NOTE | 2020-02-03 11:23 | PC.NURSE ---
Patient medication for this am given with her milk shake. She tolerated well.
--- NOTE | 2020-02-03 14:10 | P.PN_ITS ---
Subjective Subjective: Interval history: Noted significant hyperglycemia overnight with [id number], improved this AM. Resting quietly in bed, has had 2 large bowel movements so far today. Remains confused and intermittently irritable. Remains off one-on-one monitoring. Did not require any medications for confusion or agitation overnight. Medications: Reviewed: Yes Medication Review Details: Active Medications Generic Name Dose Route Start Last Admin Trade Name Freq PRN Reason Stop Dose Admin Acetaminophen 650 mg 01/29/20 17:31 Tylenol PO Q6H PRN Mild/Mod Pain Or Temp >/= 101 Hydrocodone Bitart /Acetaminophen 1 tab 01/29/20 17:31 [place] 5-325 Mg PO Q8H PRN SEVERE PAIN Dextrose 25 ml 01/29/20 17:31 D50w IVP ONCE PRN hypoglycemia prot ocol Protocol Dextrose 50 ml 01/29/20 17:31 D50w IVP PRN PRN hypoglycemia prot ocol Protocol Ferrous Sulfate 325 mg 01/31/20 09:00 02/02/20 08:23 Ferrous Sulfate PO Not Given EVERY OTHER DAY S Glucagon 1 mg 01/29/20 17:31 Glucagen IM ONCE PRN Adult Acute Hypog lycemia Prot. Protocol Haloperidol Lactat e 5 mg 01/30/20 15:08 01/30/20 23:40 Haldol Inj IM 5 mg Q6H PRN Administration AGITATION Dextrose 500 mls @ 100 mls /hr 01/29/20 17:31 D5w IV ONCE PRN Adult Acute Hypog lycemia Prot Protocol Insulin Aspart 0 unit 01/29/20 18:00 02/03/20 12:50 Novolog SUBCUT Not Given WM&BEDTIME GIOVANNY Protocol Insulin Glargine 40 unit 02/02/20 21:00 02/02/20 21:44 Lantus SUBCUT 40 unit BEDTIME GIOVANNY Administration Lactulose 30 gm 02/01/20 21:00 02/03/20 09:02 Constulose PO Not Given TID GIOVANNY Levothyroxine Sodi um 150 mcg 01/30/20 09:00 02/03/20 09:02 Synthroid PO Not Given DAILY GIOVANNY Lorazepam 2 mg 01/31/20 21:19 Ativan IM Q4H PRN AGITATION Metoprolol Tartrat e 12.5 mg 01/29/20 18:00 02/03/20 09:02 Lopressor PO Not Given BID GIOVANNY Morphine Sulfate 2 mg 01/29/20 17:31 01/31/20 11:21 Morphine IVP 2 mg Q4H PRN Administration SEVERE PAIN Olanzapine 2.5 mg 01/29/20 18:00 02/03/20 09:02 Zyprexa PO Not Given BID [facility] Ondansetron HCl 4 mg 01/29/20 17:31 Zofran IVP Q8H PRN vomiting, or N/V if npo Pantoprazole Sodiu m 40 mg 01/30/20 09:00 02/03/20 09:02 Protonix PO Not Given DAILY [facility] Rifaximin 550 mg 01/30/20 09:00 02/03/20 09:02 Xifaxan PO Not Given DAILY [facility] Spironolactone 25 mg 02/03/20 09:00 02/03/20 09:02 Aldactone PO Not Given DAILY [facility] celecoxib [From Celebrex] Allergy (Intermediate, Verified 01/18/20 15:02) confusion meperidine [From Demerol] Allergy (Verified 01/18/20 15:02) Unknown theophylline Allergy (Verified 01/18/20 15:02) Unknown Vitals/I&O/Wt Last Vital Signs Temp 98.1 F 02/03/20 12:00 Pulse 86 02/03/20 12:00 Resp 16 02/03/20 12:00 BP 120/70 02/03/20 12:00 Pulse Ox 94 02/03/20 12:00 02/02/20 02/03/20 02/03/20 22:59 06:59 14:59 Intake Total 420 / 780 440 / 1220 Balance 420 / 780 440 / 1220 Weight last 48 hrs Weight 83.234 kg Weight 84.623 kg Physical Exam Const: COMMON NORMALS: alert GENERAL APPEARANCE: frail appearing and appears older than stated age NUTRITIONAL APPEARANCE: obese ORIENTAT ION/CONSCIOUSNESS: Yes awake and Yes confused OTHER: -Resting in bed HENMT: COMMON NORMALS: normocephalic, atraumatic, hearing grossly normal bilaterally and moist oral mucous membranes HEAD & SCALP: normocephalic and atraumatic MOUTH: moist mucous membranes abnormal Details: parched Eye: COMMON NORMALS: Equal, round and reactive pupils present, EOMs intact bilaterally and conjunctivae normal CONJUNCTIVA: Yes conjunctivae normal PUPIL: Yes Equal, round and reactive pupils present Neck/C-Spine: COMMON NORMALS: full ROM GENERAL: Yes normal visual inspection and Yes trachea midline Resp: COMMON NORMALS: normal respiratory effort, No retractions, No use of accessory muscles and clear to auscultation bilaterally EFFORT & INSPECTION: Yes able to speak in complete sentences, Yes symmetric chest movement and No tachypneic AUSCULTATION: clear to auscultation bilaterally OTHER: -on RA Cardio: COMMON NORMALS: regular rate, regular rhythm, S1 normal heart sound present, S2 normal heart sound present and No murmurs present (Cardio) RATE: regular rate RHYTHM: regular rhythm HEART SOUNDS: S1 normal heart sound present and S2 normal heart sound present GI: COMMON NORMALS: Normal to inspection, nondistended, normoactive bowel sounds present and Soft to palpation INSPECTION: Yes central obesity PALPATION: Yes Soft to palpation Extremity: COMMON NORMALS: normal to inspection, full ROM and no clubbing, cyanosis or edema; negative for no pedal edema Neuro: COMMON NORMALS: moves all extremities, no focal motor deficits and no sensory deficits noted SENSORIUM/ORIENTATION: Yes alert and Yes Orientation impaired Psych: COMMON NORMALS: speech normal ATTITUDE: Yes calm SPEECH: Yes normal speech MOOD & AFFECT: Yes Flat affect present MEMORY/COGNITION: Yes cognition grossly impaired INSIGHT: Poor insight present (Psych) Skin: COMMON NORMALS: no rashes or lesions noted, no jaundice, no petechiae and no mottling GENERAL SKIN EXAM: no rashes or lesions noted Urinary Catheter Management^: Chow: Cath Placed During This Visit: yes, but has since been removed by the nurse Reason for Continuing Indwelling Catheter: Other Urinary Catheter Date of Insertion: 01/29/20 Urinary Catheter Time of Insertion: 14:36 Date Urinary Catheter Removed: 02/02/20 Time Urinary Catheter Discontinued: 06:21 Data : 02/01/20 04:55 02/01/20 04:55 A&P Assessment and plan (1) Altered mental status: -likely multifactorial given significant underlying dementia, recurrent UTI, hyperammonemia -Patient is confused at baseline due to underlying dementia; per daughter confusion has been increasing for the past few days since her recent discharge from the hospital during which time she was treated for UTI and hepatic ence phalopathy -supervision with meals -Lactulose PO -ammonia normalized -Treatment of UTI as noted below -Strict fall, aspiration precautions -off IVF hydration; encourage oral hydration -on one-on-one monitoring due to high fall risk Status: Acute Qualifiers: Altered mental status type: unspecified Qualified Code(s): R41.82 - Altered mental status, unspecified (2) Hyperammonemia: -Has noted acute hepatic encephalopathy secondary to underlying liver cirrhosis evidenced by hyperammonemia -Lactulose PO. -ammonia normalized Status: Acute (3) Recurrent UTI: -Has noted history of recurrent UTIs, most recently treated with amoxicillin secondary to Enterococcus faecalis on most recent urine culture -Urinalysis today grossly indicative of infection with noted leukocyte esterase, hematuria, pyuria, bacteria -off abx as urine cx- negative, blood cx-negative -Chow catheter discontinued and has been incontinent Status: Acute (4) Hypothyroidism: -continue levothyroxine Status: Chronic Qualifiers: Hypothyroidism type: unspecified Qualified Code(s): E03.9 - Hypoth yroidism, unspecified (5) Normocytic anemia: -Has chronic normocytic anemia -Baseline hemoglobin is around 9; Hg at baseline Status: Chronic (6) Chronic kidney disease, stage III (moderate): -Baseline creatinine appears to be around 1.3-1.7 -renal function at baseline -Avoid nephrotoxins, renally dose meds Status: Chronic (7) Hyponatremia: -Likely secondary to dehydration from poor oral intake -off IVF; encourage oral hydration -Sodium level normalized Status: Resolved (8) Dementia without behavioral disturbance: -Clinically appears to have advanced dementia; baseline mental status tends to wax and wane -off one-on-one monitoring x 48 hrs -continue fall precautions and reorient as needed Status: Chronic Qualifiers: Alzheimer's disease onset: unspecified onset Dementia type: Alzheimer's disease Qualified Code(s): G30.9 - Alzheimer's disease, unspecified; F02.80 - Dementia in other diseases classified elsewhere without behavioral disturbance (9) COPD (chronic obstructive pulmonary disease): -Not oxygen dependent at baseline -No acute exacerbation currently Status: Chronic Qualifiers: COPD type: unspecified COPD Qualified Code(s): J44.9 - Chronic obstructive pulmonary disease, unspecified (10) GERD (gastroesophageal reflux disease): -continue PPI Status: Chronic Qualifiers: Esophagitis presence: esophagitis presence not specified Qualified Code(s): K21.9 - Gastro-esophageal reflux disease without esophagitis (11) Cirrhosis of liver: -Has history of idiopathic liver cirrhosis -Follows up with Dr. Alexis -Noted elevated LFTs, consistent with liver cirrhosis -on rifaximin; hold Aldactone due to dehydration Status: Chronic Qualifiers: Ascites presence: without ascites Hepatic cirrhosis type: unspecified hepatic cirrhosis Qualified Code(s): K74.60 - Unspecified cirrhosis of liver Additional A&P Information -Chronic constipation, on lactulose -NIDDM type II, A1c (11/2019)-9.7; ISS, hypoglycemia precautions -GI ppx with PPI -DVT ppx with SCDs, no AC due to anemia -Dispo: per discussion with daughter Cristela Henson willing to reconsider SNF placement, patient has previously been to [facility] and does not want to return there, will consider alternative facility. With patient's cognitive impairment, physical deconditioning, she needs 24/ supervision and would benefit greatly from more intensive and consistent therapy -Code status: FULL code; discussed with daughter over the phone; Cristela is her DPOA Attestations Medical Necessity Statement*: Patient requires hospitalization for continued care pending appropriate disposition. Time Spent in Patient Care: less than 15 minutes (>than 50% of time spent in counselling and/or direct pt care on unit) . Coding Level of Care Code Acute Weeder for Chg Fwd Exam Comprehensive Diagnoses Altered mental status R41.82 Altered mental status type: unspecified Hyperammonemia E72.20 Recurrent UTI N39.0 Hypothyroidism E03.9 Hypothyroidism type: unspecified Normocytic anemia D64.9 Chronic kidney disease, stage III (moderate) N18.3 Hyponatremia E87.1 Dementia without behavioral disturbance G30.9; F02.80 Alzheimer's disease onset: unspecified onset Dementia type: Alzheimer's disease COPD (chronic obstructive pulmonary disease) J44.9 COPD type: unspecified COPD GERD (gastroesophageal reflux disease) K21.9 Esophagitis presence: esophagitis presence not specified Cirrhosis of liver K74.60 Ascites presence: without ascites Hepatic cirrhosis type: unspecified hepatic cirrhosis
[2020-02-03] MEDS: lactulose oral liq 20 gm/30 mL UDC 30 GM PO ×2 (16:02→21:31)
[2020-02-03 17:04] LABS: Glucose Point of Care 418 mg/dL (70-110)
[2020-02-03] MEDS: metoprolol tartrate 25 mg Tablet 12.5 MG PO (17:11)
[2020-02-03] MEDS: OLANZapine 5 mg TABLET 2.5 MG PO (17:11)
[2020-02-03 21:08] LABS: Glucose Point of Care 411 mg/dL (70-110)
[2020-02-03] MEDS: insulin glargine 100 units/1 mL 40 UNIT SUBCUT (21:31)
--- NOTE | 2020-02-03 22:00 | PC.NURSE ---
Upon patient assessment patient had expiratory wheezes in Anterior upper bilateral lungs. Patient is not on oxygen and saturations were 94%. Patient has not had any wheezing in previous shift assessments. Doctor was notified of change in patient status along with her history of COPD and home medication albuterol inhaler. Doctor put orders in for Duoneb 3 mL Inhalation Q4 PRN. Will continue to monitor.
[2020-02-04] VITALS (9 sets, daily range): BP systolic 113–147; BP diastolic 54–88; PULSE 67–98; RESP 16–19; TEMP 36.7–37.2; O2SAT 93–96
[2020-02-04] MEDS: ipratropium-albuterol 3 mL Neb INHALATION (00:38)
[2020-02-04 07:17] LABS: Glucose Point of Care 154 mg/dL (70-110)
[2020-02-04] MEDS: metoprolol tartrate 25 mg Tablet 12.5 MG PO ×2 (09:52→17:55)
[2020-02-04] MEDS: OLANZapine 5 mg TABLET 2.5 MG PO ×2 (09:53→17:55)
[2020-02-04] MEDS: levothyroxine 150 mcg Tablet PO (09:53)
[2020-02-04] MEDS: ferrous sulfate EC 325 mg Tablet PO (09:53)
[2020-02-04] MEDS: spironolactone 25 mg Tablet PO (09:53)
[2020-02-04] MEDS: pantoprazole DR 40 mg Tablet PO (09:53)
[2020-02-04] MEDS: lactulose oral liq 20 gm/30 mL UDC 30 GM PO ×3 (09:55→21:51)
[2020-02-04 10:34] LABS: Glucose Point of Care 164 mg/dL (70-110)
[2020-02-04 12:03] LABS: Glucose Point of Care 159 mg/dL (70-110)
--- NOTE | 2020-02-04 14:48 | P.PN_ITS ---
Subjective Subjective: Interval history: Hemodynamically stable, afebrile, remains on room air, no bowel movements so far today. Resting quietly in bed, no apparent distress, no complaints, confused though easily reoriented. Medications: Reviewed: Yes Medication Review Details: Active Medications Generic Name Dose Route Start Last Admin Trade Name Freq PRN Reason Stop Dose Admin Acetaminophen 650 mg 01/29/20 17:31 Tylenol PO Q6H PRN Mild/Mod Pain Or Temp >/= 101 Hydrocodone Bitart /Acetaminophen 1 tab 01/29/20 17:31 [place] 5-325 Mg PO Q8H PRN SEVERE PAIN Albuterol/Ipratrop ium 3 ml 02/03/20 21:47 Duoneb INHALATION Q4H.RESPIRATORY P RN SHORTNESS OF ELROY TH Dextrose 25 ml 01/29/20 17:31 D50w IVP ONCE PRN hypoglycemia prot ocol Protocol Dextrose 50 ml 01/29/20 17:31 D50w IVP PRN PRN hypoglycemia prot ocol Protocol Ferrous Sulfate 325 mg 01/31/20 09:00 02/04/20 09:53 Ferrous Sulfate PO 325 mg EVERY OTHER DAY S [facility] Administration Glucagon 1 mg 01/29/20 17:31 Glucagen IM ONCE PRN Adult Acute Hypog lycemia Prot. Protocol Haloperidol Lactat e 5 mg 01/30/20 15:08 01/30/20 23:40 Haldol Inj IM 5 mg Q6H PRN Administration AGITATION Dextrose 500 mls @ 100 mls /hr 01/29/20 17:31 D5w IV ONCE PRN Adult Acute Hypog lycemia Prot Protocol Insulin Aspart 0 unit 01/29/20 18:00 02/04/20 12:46 Novolog SUBCUT 2 unit WM&BEDTIME GIOVANNY Administration Protocol Insulin Glargine 40 unit 02/02/20 21:00 02/03/20 21:31 Lantus SUBCUT 40 unit BEDTIME GIOVANNY Administration Lactulose 30 gm 02/01/20 21:00 02/04/20 09:55 Constulose PO 30 gm TID GIOVANNY Administration Levothyroxine Sodi um 150 mcg 01/30/20 09:00 02/04/20 09:53 Synthroid PO 150 mcg DAILY GIOVANNY Administration Lorazepam 2 mg 01/31/20 21:19 Ativan IM Q4H PRN AGITATION Metoprolol Tartrat e 12.5 mg 01/29/20 18:00 02/04/20 09:52 Lopressor PO 12.5 mg BID GIOVANNY Administration Morphine Sulfate 2 mg 01/29/20 17:31 01/31/20 11:21 Morphine IVP 2 mg Q4H PRN Administration SEVERE PAIN Olanzapine 2.5 mg 01/29/20 18:00 02/04/20 09:53 Zyprexa PO 2.5 mg BID GIOVANNY Administration Ondansetron HCl 4 mg 01/29/20 17:31 Zofran IVP Q8H PRN vomiting, or N/V if npo Pantoprazole Sodiu m 40 mg 01/30/20 09:00 02/04/20 09:53 Protonix PO 40 mg DAILY GIOVANNY Administration Rifaximin 550 mg 01/30/20 09:00 02/04/20 09:53 Xifaxan PO 550 mg DAILY GIOVANNY Administration Spironolactone 25 mg 02/03/20 09:00 02/04/20 09:53 Aldactone PO 25 mg DAILY GIOVANNY Administration celecoxib [From Celebrex] Allergy (Intermediate, Verified 01/18/20 15:02) confusion meperidine [From Demerol] Allergy (Verified 01/18/20 15:02) Unknown theophylline Allergy (Verified 01/18/20 15:02) Unknown Vitals/I&O/Wt Last Vital Signs Temp 98.1 F 02/04/20 11:12 Pulse 98 02/04/20 11:12 Resp 16 02/04/20 11:12 BP 113/55 02/04/20 11:12 Pulse Ox 96 02/04/20 11:12 02/03/20 02/04/20 02/04/20 22:59 06:59 14:59 Intake Total 480 / 720 240 / 960 237 / 237 Balance 480 / 720 240 / 960 237 / 237 Weight last 48 hrs Weight 83.325 kg Weight 83.234 kg Physical Exam Const: COMMON NORMALS: alert GENERAL APPEARANCE: frail appearing and appears older than stated age NUTRITIONAL APPEARANCE: obese ORIENTATION/CONSCIOUSNESS: Yes awake and Yes confused OTHER: -Resting in bed HENMT: COMMON NORMALS: normocephalic, atraumatic, hearing grossly normal bilaterally and moist oral mucous membranes HEAD & SCALP: normocephalic and atraumatic MOUTH: moist mucous membranes abnormal Details: parched Eye: COMMON NORMALS: Equal, round and reactive pupils present, EOMs intact bilaterally and conjunctivae normal CONJUNCTIVA: Yes conjunctivae normal PUPIL: Yes Equal, round and reactive pupils present Neck/C-Spine: COMMON NORMALS: full ROM GENERAL: Yes normal visual inspection and Yes trachea midline Resp: COMMON NORMALS: normal respiratory effort, No retractions, No use of accessory muscles and clear to auscultation bilaterally EFFORT & INSPECTION: Yes able to speak in complete sentences, Yes symmetric chest movement and No tachypneic AUSCULTATION: clear to auscultation bilaterally OTHER: -on RA Cardio: COMMON NORMALS: regular rate, regular rhythm, S1 normal heart sound present, S2 normal heart sound present and No murmurs present (Cardio) RATE: regular rate RHYTHM: regular rhythm HEART SOUNDS: S1 normal heart sound present and S2 normal heart sound present GI: COMMON NORMALS: Normal to inspection, nondistended, normoactive bowel sounds present and Soft to palpation INSPECTION: Yes central obesity PALPATION: Yes Soft to palpation Extremity: COMMON NORMALS: normal to inspection, full ROM and no clubbing, cyanosis or edema; negative for no pedal edema Neuro: COMMON NORMALS: moves all extremities, no focal motor deficits and no sensory deficits noted SENSORIUM/ORIENTATION: Yes alert and Yes Orientation impaired Psych: COMMON NORMALS: speech normal ATTITUDE: Yes calm SPEECH: Yes normal speech MOOD & AFFECT: Yes Flat affect present MEMORY/COGNITION: Yes cognition grossly impaired INSIGHT: Poor insight present (Psych) Skin: COMMON NORMALS: no rashes or lesions noted, no jaundice, no petechiae and no mottling GENERAL SKIN EXAM: no rashes or lesions noted Urinary Catheter Management^: Chow: Cath Placed During This Visit: yes, but has since been removed by the nurse Reason for Continuing Indwelling Catheter: Other Urinary Catheter Date of Insertion: 01/29/20 Urinary Catheter Time of Insertion: 14:36 Date Urinary Catheter Removed: 02/02/20 Time Urinary Catheter Discontinued: 06:21 Data : 02/01/20 04:55 02/01/20 04:55 Micro: Microbiology 01/29/20 14:05 Blood Culture - Final Blood NO GROWTH AFTER 5 DAYS 01/29/20 14:10 Blood Culture - Final Blood NO GROWTH AFTER 5 DAYS A&P Assessment and plan (1) Altered mental status: -likely multifactorial given significant underlying dementia, recurrent U TI, hyperammonemia -Patient is confused at baseline due to underlying dementia; per daughter confusion has been increasing for the past few days since her recent discharge from the hospital during which time she was treated for UTI and hepatic encephalopathy -supervision with meals -Lactulose PO -ammonia normalized -Treatment of UTI as noted below -Strict fall, aspiration precautions -off IVF hydration; encourage oral hydration -on one-on-one monitoring due to high fall risk Status: Resolved Qualifiers: Altered mental status type: unspecified Qualified Code(s): R41.82 - Altered mental status, unspecified (2) Hyperammonemia: -Has noted acute hepatic encephalopathy secondary to underlying liver cirrhosis evidenced by hyperammonemia -Lactulose PO. -ammonia normalized Status: Acute (3) Recurrent UTI: -Has noted history of recurrent UTIs, most recently treated with amoxicillin secondary to Enterococcus faecalis on most recent urine culture -Urinalysis today grossly indicative of infection with noted leukocyte esterase, hematuria, pyuria, bacteria -off abx as urine cx-negative, blood cx-negative -Chow catheter discontinued and has been incontinent Status: Acute (4) Hypothyroidism: -continue levothyroxine Status: Chronic Qualifiers: Hypothyroidism type: unspecified Qualified Code(s): E03.9 - Hypothyroidism, unspecified (5) Normocytic anemia: -Has chronic normocytic anemia -Baseline hemoglobin is around 9; Hg at baseline Status: Chronic (6) Chronic kidney disease, stage III (moderate): -Baseline creatinine appears to be around 1.3-1.7 -renal function at baseline -Avoid nephrotoxins, renally dose meds Status: Chronic (7) Hyponatremia: -Likely secondary to dehydration from poor oral intake -off IVF; encourage oral hydration -Sodium level normalized Status: Resolved (8) Dementia without behavioral disturbance: -Clinically appears to have advanced dementia; baseline mental status tends to wax and wane -off one-on-one monitoring x 72 hrs -continue fall precautions and reorient as needed Status: Chronic Qualifiers: Alzheimer's disease onset: unspecified onset Dementia type: Alzheimer's disease Qualified Code(s): G30.9 - Alzheimer's disease, unspecified; F02.80 - Dementia in other diseases classified elsewhere without behavioral disturbance (9) COPD (chronic obstructive pulmonary disease): -Not oxygen dependent at baseline -No acute exacerbation currently Status: Chronic Qualifiers: COPD type: unspecified COPD Qualified Code(s): J44.9 - Chronic obstructive pulmonary disease, unspecified (10) GERD (gastroesophageal reflux disease): -continue PPI Status: Chronic Qualifiers: Esophagitis presence: esophagitis presence not specified Qualified Code(s): K21.9 - Gastro-esophageal reflux disease without esophagitis (11) Cirrhosis of liver: -Has history of idiopathic liver cirrhosis -Follows up with Dr. Alexis -Noted elevated LFTs, consistent with liver cirrhosis -on rifaximin, Aldactone Status: Chronic Qualifiers: Ascites presence: without ascites Hepatic cirrhosis type: unspecified hepatic cirrhosis Qualified Code(s): K74.60 - Unspecified cirrhosis of liver Additional A&P Information -Chronic constipation, on lactulose -NIDDM type II, A1c (11/2019)-9.7; ISS, hypoglycemia precautions. On Lantus, add some meal time insulin coverage due to noted hyperglycemia -GI ppx with PPI -DVT ppx with SCDs, no AC due to anemia -Dispo: pending auth for [facility] -Code status: FULL code; discussed with daughter over the phone; Cristela is her DPOA Attestations Medical Necessity Statement*: Patient requires hospitalization for continued care pending appropriate disposition. Time Spent in Patient Care: less than 15 minutes (>than 50% of time spent in counselling and/or direct pt care on unit) . Coding Level of Care Code Acute [place] for [facility] Fwd Exam Comprehensive Diagnoses Altered mental status R41.82 Altered mental status type: unspecified Hyperammonemia E72.20 Recurrent UTI N39.0 Hypothyroidism E03.9 Hypothyroidism type: unspecified Normocytic anemia D64.9 Chronic kidney disease, stage III (moderate) N18.3 Hyponatremia E87.1 Dementia without behavioral disturbance G30.9; F02.80 Alzheimer's disease onset: unspecified onset Dementia type: Alzheimer's disease COPD (chronic obstructive pulmonary disease) J44.9 COPD type: unspecified COPD GERD (gastroesophageal reflux disease) K21.9 Esophagitis presence: esophagitis presence not specified Cirrhosis of liver K74.60 Ascites presence: without ascites Hepatic cirrhosis type: unspecified hepatic cirrhosis
[2020-02-04 21:13] LABS: Glucose Point of Care 323 mg/dL (70-110)
[2020-02-04] MEDS: insulin glargine 100 units/1 mL 40 UNIT SUBCUT (21:50)
[2020-02-05] VITALS (7 sets, daily range): BP systolic 112–125; BP diastolic 57–77; PULSE 76–91; RESP 14–18; TEMP 36.4–37.1; O2SAT 94–97
[2020-02-05 06:37] LABS: Glucose Point of Care 110 mg/dL (70-110)
[2020-02-05] MEDS: lactulose oral liq 20 gm/30 mL UDC 30 GM PO ×3 (08:31→21:42)
[2020-02-05] MEDS: metoprolol tartrate 25 mg Tablet 12.5 MG PO (08:32)
[2020-02-05] MEDS: spironolactone 25 mg Tablet PO (08:32)
[2020-02-05] MEDS: levothyroxine 150 mcg Tablet PO (08:32)
[2020-02-05] MEDS: pantoprazole DR 40 mg Tablet PO (08:32)
[2020-02-05] MEDS: OLANZapine 5 mg TABLET 2.5 MG PO (08:32)
--- NOTE | 2020-02-05 10:45 | PC.SOCIAL ---
IMM Updated Updated pt on Pg 2 IMM. Provided pt a copy. No questions voiced. Signed, dated, & timed the copy in chart.
[2020-02-05 11:24] LABS: Glucose Point of Care 288 mg/dL (70-110)
[2020-02-05 12:44] LABS: Glucose Point of Care 323 mg/dL (70-110)
--- NOTE | 2020-02-05 14:32 | P.PN_ITS ---
Subjective Subjective: Interval history: Remains on room air, hemodynamically stable, had 1 small bowel movement around midnight. Accu-Cheks reviewed. Resting in bed, alert, disoriented. Did not enjoy her lunch much. Medications: Reviewed: Yes Medication Review Details: Active Medications Generic Name Dose Route Start Last Admin Trade Name Freq PRN Reason Stop Dose Admin Acetaminophen 650 mg 01/29/20 17:31 Tylenol PO Q6H PRN Mild/Mod Pain Or Temp >/= 101 Albuterol/Ipratrop ium 3 ml 02/03/20 21:47 Duoneb INHALATION Q4H.RESPIRATORY P RN SHORTNESS OF ELROY TH Dextrose 25 ml 01/29/20 17:31 D50w IVP ONCE PRN hypoglycemia prot ocol Protocol Dextrose 50 ml 01/29/20 17:31 D50w IVP PRN PRN hypoglycemia prot ocol Protocol Ferrous Sulfate 325 mg 01/31/20 09:00 02/04/20 09:53 Ferrous Sulfate PO 325 mg EVERY OTHER DAY S [facility] Administration Glucagon 1 mg 01/29/20 17:31 Glucagen IM ONCE PRN Adult Acute Hypog lycemia Prot. Protocol Haloperidol Lactat e 5 mg 01/30/20 15:08 01/30/20 23:40 Haldol Inj IM 5 mg Q6H PRN Administration AGITATION Dextrose 500 mls @ 100 mls /hr 01/29/20 17:31 D5w IV ONCE PRN Adult Acute Hypog lycemia Prot Protocol Insulin Aspart 0 unit 01/29/20 18:00 02/05/20 11:25 Novolog SUBCUT 8 unit WM&BEDTIME GIOVANNY Administration Protocol Insulin Aspart 7 unit 02/04/20 18:00 02/05/20 11:25 Novolog SUBCUT 7 unit TIDWM GIOVANNY Administration Insulin Glargine 40 unit 02/02/20 21:00 02/04/20 21:50 Lantus SUBCUT 40 unit BEDTIME GIOVANNY Administration Lactulose 30 gm 02/01/20 21:00 02/05/20 08:31 Constulose PO 30 gm TID GIOVANNY Administration Levothyroxine Sodi um 150 mcg 01/30/20 09:00 02/05/20 08:32 Synthroid PO 150 mcg DAILY GIOVANNY Administration Lorazepam 2 mg 01/31/20 21:19 Ativan IM Q4H PRN AGITATION Metoprolol Tartrat e 12.5 mg 01/29/20 18:00 02/05/20 08:32 Lopressor PO 12.5 mg BID GIOVANNY Administration Olanzapine 2.5 mg 01/29/20 18:00 02/05/20 08:32 Zyprexa PO 2.5 mg BID GIOVANNY Administration Ondansetron HCl 4 mg 01/29/20 17:31 Zofran IVP Q8H PRN vomiting, or N/V if npo Pantoprazole Sodiu m 40 mg 01/30/20 09:00 02/05/20 08:32 Protonix PO 40 mg DAILY GIOVANNY Administration Rifaximin 550 mg 01/30/20 09:00 02/05/20 08:32 Xifaxan PO 550 mg DAILY GIOVANNY Administration Spironolactone 25 mg 02/03/20 09:00 02/05/20 08:32 Aldactone PO 25 mg DAILY GIOVANNY Administration celecoxib [From Celebrex] Allergy (Intermediate, Verified 01/18/20 15:02) confusion meperidine [From Demerol] Allergy (Verified 01/18/20 15:02) Unknown theophylline Allergy (Verified 01/18/20 15:02) Unknown Vitals/I&O/Wt Last Vital Signs Temp 97.6 F 02/05/20 12:00 Pulse 82 02/05/20 12:00 Resp 17 02/05/20 12:00 BP 124/72 02/05/20 12:00 Pulse Ox 96 02/05/20 12:00 02/04/20 02/05/20 02/05/20 22:59 06:59 14:59 Intake Total 240 / 477 240 / 717 960 / 960 Balance 240 / 477 240 / 717 960 / 960 Weight last 48 hrs Weight 82.242 kg Weight 83.325 kg Physical Exam Const: COMMON NORMALS: alert GENERAL APPEARANCE: frail appearing and appear s older than stated age NUTRITIONAL APPEARANCE: obese ORIE NTATION/CONSCIOUSNESS: Yes awake and Yes confused OTHER: -Resting in bed HENMT: COMMON NORMALS: normocephalic, atraumatic, hearing grossly normal bilaterally and moist oral mucous membranes HEAD & SCALP: normocephalic and atraumatic MOUTH: moist mucous membranes abnormal Details: parched Eye: COMMON NORMALS: Equal, round and reactive pupils present, EOMs intact bilaterally and conjunctivae normal CONJUNCTIVA: Yes conjunctivae normal PUPIL: Yes Equal, round and reactive pupils present Neck/C-Spine: COMMON NORMALS: full ROM GENERAL: Yes normal visual inspection and Yes trachea midline Resp: COMMON NORMALS: normal respiratory effort, No retractions, No use of accessory muscles and clear to auscultation bilaterally EFFORT & INSPECTION: Yes able to speak in complete sentences, Yes symmetric chest movement and No ta chypneic AUSCULTATION: clear to auscultation bilaterally OTHER: -on RA Cardio: COMMON NORMALS: regular rate, regular rhythm, S1 normal heart sound present, S2 normal heart sound present and No murmurs present (Cardio) RATE: regular rate RHYTHM: regular rhythm HEART SOUNDS: S1 normal heart sound present and S2 normal heart sound present GI: COMMON NORMALS: Normal to inspection, nondistended, normoactive bowel sounds present and Soft to palpation INSPECTION: Yes central obesity PALPATION: Yes Soft to palpation Extremity: COMMON NORMALS: normal to inspection, full ROM and no clubbing, cyanosis or edema; negative for no pedal edema Neuro: COMMON NORMALS: moves all extremities, no focal motor deficits and no sensory deficits noted SENSORIUM/ORIENTATION: Yes alert and Yes Orientation impaired Psych: COMMON NORMALS: speech normal ATTITUDE: Yes calm SPEECH: Yes nor mal speech MOOD & AFFECT: Yes Flat affect present MEMORY/COGNITION: Yes cognition grossly impaired INSIGHT: Poor insight present (Psych) Skin: COMMON NORMALS: no rashes or lesions noted, no jaundice, no petechiae and no mottling GENERAL SKIN EXAM: no rashes or lesions noted Urinary Catheter Management^: Chow: Cath Placed During This Visit: yes, but has since been removed by the nurse Reason for Continuing Indwelling Catheter: Other Urinary Catheter Date of Insertion: 01/29/20 Urinary Catheter Time of Insertion: 14:36 Date Urinary Catheter Removed: 02/02/20 Time Urinary Catheter Discontinued: 06:21 Data : 02/01/20 04:55 02/01/20 04:55 A&P Assessment and plan (1) Altered mental status: -likely multifactorial given significant underlying dementia, recurrent UTI, hyperammonemia -Patient is confused at baseline due to underlying dementia; per daughter confusion has been increasing for the past few days since her recent discharge from the hospital during which time she was treated for UTI and hepatic encephalopathy -supervision with meals -Lactulose PO -ammonia normalized -Treatment of UTI as noted below -Strict fall, aspiration precautions -off IVF hydration; encourage oral hydration -off one-on-one monitoring Status: Resolved Qualifiers: Altered mental status type: unspecified Qualified Code(s): R41.82 - Altered mental status, unspecified (2) Hyperammonemia: -Has noted acute hepatic encephalopathy secondary to underlying liver cirrhosis evidenced by hyperammonemia -Lactulose PO. -ammonia normalized Status: Acute (3) Recurrent UTI: -Has noted history of recurrent UTIs, most recently treated with amoxici llin secondary to Enterococcus faecalis on most recent urine culture -Urinalysis today grossly indicative of infection with noted leukocyte esterase, hematuria, pyuria, bacteria -off abx as urine cx-negative, blood cx-negative -Chow catheter discontinued and has been incontinent Status: Acute (4) Hypothyroidism: -continue levothyroxine Status: Chronic Qualifiers: Hypothyroidism type: unspecified Qualified Code(s): E03.9 - Hypothyroidism, unspecified (5) Normocytic anemia: -Has chronic normocytic anemia -Baseline hemoglobin is around 9; Hg at baseline Status: Chronic (6) Chronic kidney disease, stage III (moderate): -Baseline creatinine appears to be around 1.3-1.7 -renal function at baseline -Avoid nephrotoxins, renally dose meds Status: Chronic (7) Hyponatremia: -Likely secondary to dehydration from poor oral intake -off IVF; encourage oral hydration -Sodium level normalized Status: Resolved (8) Dementia without behavioral disturbance: -Clinically appears to have advanced dementia; baseline mental status tends to wax and wane -off one-on-one monitoring x 72 hrs -continue fall precautions and reorient as needed Status: Chronic Qualifiers: Alzheimer's disease onset: unspecified onset Dementia type: Alzheimer's disease Qualified Code(s): G30.9 - Alzheimer's disease, unspecified; F02.80 - Dementia in other diseases classified elsewhere without behavioral disturbance (9) COPD (chronic obstructive pulmonary disease): -Not oxygen dependent at baseline -No acute exacerbation currently Status: Chronic Qualifiers: COPD type: unspecified COPD Qualified Code(s): J44.9 - Chronic obstructive pulmonary disease, unspecified (10) GERD (gastroesophageal reflux disease): -continue PPI Status: Chronic Qualifiers: Esophagitis presence: esophagitis presence not specified Qualified Code(s): K21.9 - Gastro-esophageal reflux disease without esophagitis (11) Cirrhosis of liver: -Has history of idiopathic liver cirrhosis -Follows up with Dr. Alexis -Noted elevated LFTs, consistent with liver cirrhosis -on rifaximin, Aldactone Status: Chronic Qualifiers: Ascites presence: without ascites Hepatic cirrhosis type: unspecified hepatic cirrhosis Qualified Code(s): K74.60 - Unspecified cirrhosis of liver Additional A&P Information -Chronic constipation, on lactulose -NIDDM type II, A1c (11/2019)-9.7; ISS, hypoglycemia precautions. On Lantus, add some meal time insulin coverage due to noted hyperglycemia -GI ppx with PPI -DVT ppx with SCDs, no AC due to anemia -Dispo: pending auth for [facility] -Code status: FULL code; discussed with daughter over the phone; Cristela is her DPOA Attestations Medical Necessity Statement*: Patient requires hospitalization for continued care pending appropriate disposition. Time Spent in Patient Care: less than 15 minutes (>than 50% of time spent in counselling and/or direct pt care on unit) . Coding Level of Care Code Acute [facility] Fwd Exam Comprehensive Diagnoses Altered mental status R41.82 Altered mental status type: unspecified Hyperammonemia E72.20 Recurrent UTI N39.0 Hypothyroidism E03.9 Hypothyroidism type: unspecified Normocytic anemia D64.9 Chronic kidney disease, stage III (moderate) N18.3 Hyponatremia E87.1 Dementia without behavioral disturbance G30.9; F02.80 Alzheimer's disease onset: unspecified onset Dementia type: Alzheimer's disease COPD (chronic obstructive pulmonary disease) J44.9 COPD type: unspecified COPD GERD (gastroesophageal reflux disease) K21.9 Esophagitis presence: esophagitis presence not specified Cirrhosis of liver K74.60 Ascites presence: without ascites Hepatic cirrhosis type: unspecified hepatic cirrhosis
[2020-02-05 17:15] LABS: Glucose Point of Care 381 mg/dL (70-110)
[2020-02-05 21:14] LABS: Glucose Point of Care 501 mg/dL (70-110)
[2020-02-05] MEDS: insulin glargine 100 units/1 mL 40 UNIT SUBCUT (21:43)
[2020-02-06] VITALS (9 sets, daily range): BP systolic 104–127; BP diastolic 55–73; PULSE 75–88; RESP 16–18; TEMP 36.3–36.9; O2SAT 94–96; BMI 30.2
[2020-02-06 06:30] LABS: Glucose Point of Care 128 mg/dL (70-110)
[2020-02-06] MEDS: ferrous sulfate EC 325 mg Tablet PO (07:34)
[2020-02-06] MEDS: levothyroxine 150 mcg Tablet PO (07:35)
[2020-02-06] MEDS: lactulose oral liq 20 gm/30 mL UDC 30 GM PO ×3 (07:35→20:24)
[2020-02-06] MEDS: metoprolol tartrate 25 mg Tablet 12.5 MG PO ×2 (07:36→17:30)
[2020-02-06] MEDS: OLANZapine 5 mg TABLET 2.5 MG PO ×2 (07:36→17:31)
[2020-02-06] MEDS: pantoprazole DR 40 mg Tablet PO (07:36)
[2020-02-06] MEDS: spironolactone 25 mg Tablet PO (07:37)
[2020-02-06 10:56] LABS: Glucose Point of Care 289 mg/dL (70-110)
--- NOTE | 2020-02-06 10:57 | PC.NURSE ---
Patient refused to let aide do vitals. Patient stated she is grouchy and doesnt want to be bothered.
--- NOTE | 2020-02-06 15:24 | P.PN_ITS ---
Subjective Subjective: Interval history: Resting quietly in bed, no apparent distress, seems to eat better in the mornings and not much of anything else throughout the rest of the day. Calm though remains confused. Had 1 bowel movement yesterday, none today. Hemodynamically stable, incontinent of urine, on room air. Accu- Cheks reviewed, as high as 501 yesterday evening. Improved today. Disposition pending. Medications: Reviewed: Yes Medication Review Details: Active Medications Generic Name Dose Route Start Last Admin Trade Name Freq PRN Reason Stop Dose Admin Acetaminophen 650 mg 01/29/20 17:31 Tylenol PO Q6H PRN Mild/Mod Pain Or Temp >/= 101 Albuterol/Ipratrop ium 3 ml 02/03/20 21:47 Duoneb INHALATION Q4H.RESPIRATORY P RN SHORTNESS OF ELROY TH Dextrose 25 ml 01/29/20 17:31 D50w IVP ONCE PRN hypoglycemia prot ocol Protocol Dextrose 50 ml 01/29/20 17:31 D50w IVP PRN PRN hypoglycemia prot ocol Protocol Ferrous Sulfate 325 mg 01/31/20 09:00 02/06/20 07:34 Ferrous Sulfate PO 325 mg EVERY OTHER DAY S CH Administration Glucagon 1 mg 01/29/20 17:31 Glucagen IM ONCE PRN Adult Acute Hypog lycemia Prot. Protocol Haloperidol Lactat e 5 mg 01/30/20 15:08 01/30/20 23:40 Haldol Inj IM 5 mg Q6H PRN Administration AGITATION Dextrose 500 mls @ 100 mls /hr 01/29/20 17:31 D5w IV ONCE PRN Adult Acute Hypog lycemia Prot Protocol Insulin Aspart 0 unit 01/29/20 18:00 02/06/20 11:06 Novolog SUBCUT 8 unit WM&BEDTIME GIOVANNY Administration Protocol Insulin Aspart 7 unit 02/04/20 18:00 02/06/20 11:06 Novolog SUBCUT 7 unit TIDWM GIOVANNY Administration Insulin Glargine 40 unit 02/02/20 21:00 02/05/20 21:43 Lantus SUBCUT 40 unit BEDTIME GIOVANNY Administration Lactulose 30 gm 02/01/20 21:00 02/06/20 07:35 Constulose PO 30 gm TID GIOVANNY Administration Levothyroxine Sodi um 150 mcg 01/30/20 09:00 02/06/20 07:35 Synthroid PO 150 mcg DAILY GIOVANNY Administration Lorazepam 2 mg 01/31/20 21:19 Ativan IM Q4H PRN AGITATION Metoprolol Tartrat e 12.5 mg 01/29/20 18:00 02/06/20 07:36 Lopressor PO 12.5 mg BID GIOVANNY Administration Olanzapine 2.5 mg 01/29/20 18:00 02/06/20 07:36 Zyprexa PO 2.5 mg BID GIOVANNY Administration Ondansetron HCl 4 mg 01/29/20 17:31 Zofran IVP Q8H PRN vomiting, or N/V if npo Pantoprazole Sodiu m 40 mg 01/30/20 09:00 02/06/20 07:36 Protonix PO 40 mg DAILY GIOVANNY Administration Rifaximin 550 mg 01/30/20 09:00 02/06/20 07:36 Xifaxan PO 550 mg DAILY GIOVANNY Administration Spironolactone 25 mg 02/03/20 09:00 02/06/20 07:37 Aldactone PO 25 mg DAILY GIOVANNY Administration celecoxib [From Celebrex] Allergy (Intermediate, Verified 01/18/20 15:02) confusion meperidine [From Demerol] Allergy (Verified 01/18/20 15:02) Unknown theophylline Allergy (Verified 01/18/20 15:02) Unknown Vitals/I&O/Wt Last Vital Signs Temp 97.3 F L 02/06/20 11:52 Pulse 82 02/06/20 11:52 Resp 18 02/06/20 11:52 BP 104/55 02/06/20 11:52 Pulse Ox 96 02/06/20 07:16 02/06/20 02/06/20 02/06/20 06:59 14:59 22:59 Intake Total 200 / 1720 480 / 480 Balance 200 / 1719 480 / 480 Weight last 48 hrs Weight 82.242 kg Weight 82.242 kg Physical Exam Const: COMMON NORMALS: alert GENERAL APPEARANCE: frail appearing and appears older than stated age NUTRITIONAL APPEARANCE: obese ORIENTATION/CONSCIOUSNESS: Yes awake and Yes confused OTHER: -Resting in bed HENMT: COMMON NORMALS: normocephalic, atraumatic, hearing grossly normal bilaterally and moist oral mucous membranes HEAD & SCALP: normocephalic and atraumatic MOUTH: moist mucous membranes abnormal Details: parched Eye: COMMON NORMALS: Equal, round and reactive pupils present, EOMs intact bilaterally and conjunctivae normal CONJUNCTIVA: Yes conjunctivae normal PUPIL: Yes Equal, round and reactive pupils present Neck/C-Spine: COMMON NORMALS: full ROM GENERAL: Yes normal visual inspection and Yes trachea midline Resp: COMMON NORMALS: normal respiratory effort, No retractions, No use of accessory muscles and clear to auscultation bilaterally EFFORT & INSPECTION: Yes able to speak in complete sentences, Yes symmetric chest movement and No tachypneic AUSCULTATION: clear to auscultation bilaterally OTHER: -on RA Cardio: COMMON NORMALS: regular rate, regular rhythm, S1 normal heart sound present, S2 normal heart sound present and No murmurs present (Cardio) RATE: regular rate RHYTHM: regular rhythm HEART SOUNDS: S1 normal heart sound present and S2 normal heart sound present GI: COMMON NORMALS: Normal to inspection, nondistended, normoactive bowel sounds present and Soft to palpation INSPECTION: Yes central obesity PALPA TION: Yes Soft to palpation Extremity: COMMON NORMALS: normal to inspection, full ROM and no clubbing, cyanosis or edema; negative for no pedal edema Neuro: COMMON NORMALS: moves all extremities, no focal motor deficits and no sensory deficits noted SENSORIUM/ORIENTATION: Yes alert and Yes Orientation impaired Psych: COMMON NORMALS: speech normal ATTITUDE: Yes calm SPEECH: Yes normal speech MOOD & AFFECT: Yes Flat affect present MEMORY/COGNITION: Yes cognition grossly impaired INSIGHT: Poor insight present (Psych) Skin: COMMON NORMALS: no rashes or lesions noted, no jaundice, no petechiae and no mottling GENERAL SKIN EXAM: no rashes or lesions noted Urinary Catheter Management^: Chow: Cath Placed During This Visit: yes, but has since been removed by the nurse Reason for Continuing Indwelling Catheter: Other Urinary Catheter Date of Insertion: 01/29/20 Urinary Catheter Time of Insertion: 14:36 Date Urinary Catheter Removed: 02/02/20 Time Urinary Catheter Discontinued: 06:21 Data : 02/01/20 04:55 02/01/20 04:55 A&P Assessment and plan (1) Altered mental status: -likely multifactorial given significant underlying dementia, recurrent UTI, hyperammonemia -Patient is confused at baseline due to underlying dementia; per daughter confusion has been increasing for the past few days since her recent discharge from the hospital during which time she was treated for UTI and hepatic encephalopathy -supervision with meals -Lactulose PO -ammonia normalized -Treatment of UTI as noted below -Strict fall, aspiration precautions -off IVF hydration; encourage oral hydration -off one-on-one monitoring Status: Resolved Qualifiers: Altered mental status type: unspecified Qualified Code(s): R41.82 - Altered mental status, unspecified (2) Hyperammonemia: -Has noted acute hepatic encephalopathy secondary to underlying liver cirrhosis evidenced by hyperammonemia -Lactulose PO. -ammonia normalized Status: Acute (3) Recurrent UTI: -Has noted history of recurrent UTIs, most recently treated with amoxicillin secondary to Enterococcus faecalis on most recent urine culture -Urinalysis today grossly indicative of infection with noted leukocyte esterase, hematuria, pyuria, bacteria -off abx as urine cx-negative, blood cx-negative -Chow catheter discontinued and has been incontinent Status: Acute (4) Hypothyroidism: -continue levothyroxine Status: Chronic Qualifiers: Hypothyroidism type: unspecified Qualified Code(s): E03.9 - Hypothyroidism, unspecified (5) Normocytic anemia: -Has chronic normocytic anemia -Baseline hemoglobin is around 9; Hg at baseline Status: Chronic (6) Chronic kidney disease, stage III (moderate): -Baseline creatinine appears to be around 1.3-1.7 -renal function at baseline -Avoid nephrotoxins, renally dose meds Status: Chronic (7) Hyponatremia: -Likely secondary to dehydration from poor oral intake -off IVF; encourage oral hydration -Sodium level normalized Status: Resolved (8) Dementia without behavioral disturbance: -Clinically appears to have advanced dementia; baseline mental status tends to wax and wane -off one-on-one monitoring x 72 hrs -continue fall precautions and reorient as needed Status: Chronic Qualifiers: Dementia type: Alzheimer's disease Alzheimer's disease onset: unspecified onset Qualified Code(s): G30.9 - Alzheimer's disease, unspecified; F02.80 - Dementia in other diseases classified elsewhere without behavioral disturbance (9) COPD (chronic obstructive pulmonary disease): -Not oxygen dependent at baseline -No acute exacerbation currently Status: Chronic Qualifiers: COPD type: unspecified COPD Qualified Code(s): J44.9 - Chronic obstructive pulmonary disease, unspecified (10) GERD (gastroesophageal reflux disease): -continue PPI Status: Chronic Qualifiers: Esophagitis presence: esophagitis presence not specified Qualified Code(s): K21.9 - Gastro-esophageal reflux disease without esophagitis (11) Cirrhosis of liver: -Has history of idiopathic liver cirrhosis -Follows up with Dr. Alexis -Noted elevated LFTs, consistent with liver cirrhosis -on rifaximin, Aldactone Status: Chronic Qualifiers: Hepatic cirrhosis type: unspecified hepatic cirrhosis Ascites presence: without ascites Qualified Code(s): K74.60 - Unspecified cirrhosis of liver Additional A&P Information -Chronic constipation, on lactulose -NIDDM type II, A1c (11/2019)-9.7; ISS, hypoglycemia precautions. On Lantus, add some meal time insulin coverage due to noted hyperglycemia -GI ppx with PPI -DVT ppx with SCDs, no AC due to anemia -Dispo: pending auth for [facility] -Code status: FULL code; discussed with daughter over the phone; Cristela is her DPOA Attestations Medical Necessity Statement*: Patient requires hospitalization for continued care pending appropriate disposition. Time Spent in Patient Care: less than 15 minutes (>than 50% of time spent in counselling and/or direct pt care on unit) . Coding Level of Care Code Acute Stock Preparer for Chg Fwd Diagnoses Altered mental status R41.82 Altered mental status type: unspecified Hyperammonemia E72.20 Recurrent UTI N39.0 Hypothyroidism E03.9 Hypothyroidism type: unspecified Normocytic anemia D64.9 Chronic kidney disease, stage III (moderate) N18.3 Hyponatremia E87.1 Dementia without behavioral disturbance G30.9; F02.80 Dementia type: Alzheimer's disease Alzheimer's disease onset: unspecified onset COPD (chronic obstructive pulmonary disease) J44.9 COPD type: unspecified COPD GERD (gastroesophageal reflux disease) K21.9 Esophagitis presence: esophagitis presence not specified Cirrhosis of liver K74.60 Hepatic cirrhosis type: unspecified hepatic cirrhosis Ascites presence: without ascites
[2020-02-06 17:01] LABS: Glucose Point of Care 232 mg/dL (70-110)
[2020-02-06] MEDS: LORazepam 2 mg/mL INJ 1 mL IM (20:27)
[2020-02-06] MEDS: insulin glargine 100 units/1 mL 45 UNIT SUBCUT (21:46)
[2020-02-07] VITALS (12 sets, daily range): BP systolic 100–126; BP diastolic 60–74; PULSE 78–96; RESP 14–24; TEMP 36.4–37.2; O2SAT 92–95
[2020-02-07 04:14] LABS: Glucose Point of Care 225 mg/dL (70-110)
[2020-02-07 06:41] LABS: Glucose Point of Care 161 mg/dL (70-110)
[2020-02-07] MEDS: lactulose oral liq 20 gm/30 mL UDC 30 GM PO ×2 (08:38→22:04)
[2020-02-07] MEDS: OLANZapine 5 mg TABLET 2.5 MG PO (08:41)
[2020-02-07] MEDS: pantoprazole DR 40 mg Tablet PO (08:41)
[2020-02-07] MEDS: levothyroxine 150 mcg Tablet PO (08:42)
[2020-02-07] MEDS: spironolactone 25 mg Tablet PO (08:42)
[2020-02-07] MEDS: metoprolol tartrate 25 mg Tablet 12.5 MG PO (08:42)
--- NOTE | 2020-02-07 09:30 | PC.SOCIAL ---
IMM Updated Page 2 of IMM updated and given to patient. Initialed, dated, and timed and placed back in chart.
[2020-02-07 10:56] LABS: Glucose Point of Care 134 mg/dL (70-110)
[2020-02-07 13:18] LABS: Glucose Point of Care 95 mg/dL (70-110)
--- NOTE | 2020-02-07 16:38 | PM.PN ---
Subjective Subjective: Interval history: Resting quietly in bed, no apparent distress, complaining of feeling cold, and noted to be wet so with assistance of nursing staff changed her. Disposition pending insurance authorization. 1 large bowel movement yesterday. Smear noted during bed change. Medications: Reviewed: Yes Medication Review Details: Active Medications Generic Name Dose Route Start Last Admin Trade Name Freq PRN Reason Stop Dose Admin Acetaminophen 650 mg 01/29/20 17:31 Tylenol PO Q6H PRN Mild/Mod Pain Or Temp >/= 101 Albuterol/Ipratrop ium 3 ml 02/03/20 21:47 Duoneb INHALATION Q4H.RESPIRATORY P RN SHORTNESS OF ELROY TH Dextrose 25 ml 01/29/20 17:31 D50w IVP ONCE PRN hypoglycemia prot ocol Protocol Dextrose 50 ml 01/29/20 17:31 D50w IVP PRN PRN hypoglycemia prot ocol Protocol Ferrous Sulfate 325 mg 01/31/20 09:00 02/06/20 07:34 Ferrous Sulfate PO 325 mg EVERY OTHER DAY S CH Administration Glucagon 1 mg 01/29/20 17:31 Glucagen IM ONCE PRN Adult Acute Hypog lycemia Prot. Protocol Haloperidol Lactat e 5 mg 01/30/20 15:08 01/30/20 23:40 Haldol Inj IM 5 mg Q6H PRN Administration AGITATION Dextrose 500 mls @ 100 mls /hr 01/29/20 17:31 D5w IV ONCE PRN Adult Acute Hypog lycemia Prot Protocol Insulin Aspart 0 unit 01/29/20 18:00 02/07/20 11:04 Novolog SUBCUT Not Given WM&BEDTIME GIOVANNY Protocol Insulin Aspart 10 unit 02/06/20 18:00 02/07/20 11:07 Novolog SUBCUT 10 unit TIDWM GIOVANNY Administration Insulin Glargine 45 unit 02/06/20 21:00 02/06/20 21:46 Lantus SUBCUT 45 unit BEDTIME GIOVANNY Administration Lactulose 30 gm 02/01/20 21:00 02/07/20 14:21 Constulose PO Not Given TID GIOVANNY Levothyroxine Sodi um 150 mcg 01/30/20 09:00 02/07/20 08:42 Synthroid PO 150 mcg DAILY GIOVANNY Administration Lorazepam 2 mg 01/31/20 21:19 08/11/20 20:27 Ativan IM 2 mg Q4H PRN Administration AGITATION Metoprolol Tartrat e 12.5 mg 01/29/20 18:00 02/07/20 08:42 Lopressor PO 12.5 mg BID GIOVANNY Administration Olanzapine 2.5 mg 01/29/20 18:00 02/07/20 08:41 Zyprexa PO 2.5 mg BID GIOVANNY Administration Ondansetron HCl 4 mg 01/29/20 17:31 Zofran IVP Q8H PRN vomiting, or N/V if npo Pantoprazole Sodiu m 40 mg 01/30/20 09:00 02/07/20 08:41 Protonix PO 40 mg DAILY GIOVANNY Administration Rifaximin 550 mg 01/30/20 09:00 02/07/20 08:42 Xifaxan PO 550 mg DAILY GIOVANNY Administration Spironolactone 25 mg 02/03/20 09:00 02/07/20 08:42 Aldactone PO 25 mg DAILY GIOVANNY Administration celecoxib [From Celebrex] Allergy (Intermediate, Verified 01/18/20 15:02) confusion meperidine [From Demerol] Allergy (Verified 01/18/20 15:02) Unknown theophylline Allergy (Verified 01/18/20 15:02) Unknown Vitals/I&O/Wt Last Vital Signs Temp 98.9 F 02/07/20 15:56 Pulse 80 02/07/20 15:56 Resp 17 02/07/20 15:56 BP 126/74 02/07/20 15:56 Pulse Ox 93 02/07/20 15:32 02/07/20 02/07/20 02/07/20 06:59 14:59 22:59 Intake Total 120 / 1080 240 / 240 Balance 120 / 1080 240 / 240 Weight last 48 hrs Weight 84.459 kg Weight 82.242 kg Physical Exam Const: COMMON NORMALS: alert GENERAL APPEARANCE: frail appearing and appears older than stated age NUTRITIONAL APPEARANCE: obese ORIENTATION/CONSCIOUSNESS: Yes awake and Yes confused OTHER: -Resting in bed HENMT: COMMON NORMALS: normocephalic, atraumatic, hearing grossly normal bilaterally and moist oral mucous membranes HEAD & SCALP: normocephalic and atraumatic MOUTH: moist mucous membranes abnormal Details: parched Eye: COMMON NORMALS: Equal, round and reactive pupils present, EOMs intact bilaterally and conjunctivae normal CONJUNCTIVA: Yes conjunctivae normal PUPIL: Yes Equal, round and reactive pupils present Neck/C-Spine: COMMON NORMALS: full ROM GENERAL: Yes normal visual inspection and Yes trachea midline Resp: COMMON NORMALS: normal respiratory effort, No retractions, No use of accessory muscles and clear to auscultation bilaterally EFFORT & INSPECTION: Yes able to speak in complete sentences, Yes symmetric chest movement and No tachypneic AUSCULTATION: clear to auscultation bilaterally OTHER: -on RA Cardio: COMMON NORMALS: regular rate, regular rhythm, S1 normal heart sound present, S2 normal heart sound present and No murmurs present (Cardio) RATE: regular rate RHYTHM: regular rhythm HEART SOUNDS: S1 normal heart sound present and S2 normal heart sound present GI: COMMON NORMALS: Normal to inspection, nondistended, normoactive bowel sounds present and Soft to palpation INSPECTION: Yes central obesity PALPATION: Yes Soft to palpation : BLADDER/KIDNEY EXAM: Yes catheter in place Catheter type (Female): urethral OTHER: -urine with noted hematuria, some purulence Extremity: COMMON NORMALS: normal to inspection, full ROM and no clubbing, cyanosis or edema; negative for no pedal edema Neuro: COMMON NORMALS: moves all extremities, no focal motor deficits and no sensory deficits noted SENSORIUM/ORIENTATION: Yes alert and Yes Orientation impaired Psych: COMMON NORMALS: speech normal ATTITUDE: Yes calm SPEECH: Yes normal speech MOOD & AFFECT: Yes Flat affect present MEMORY/COGNITION: Yes cognition grossly impaired INSIGHT: Poor insight present (Psych) Skin: COMMON NORMALS: no rashes or lesions noted, no jaundice, no petechiae and no mottling GENERAL SKIN EXAM: no rashes or lesions noted Urinary Catheter Management^: Chow: Cath Placed During This Visit: yes, but has since been removed by the nurse Reason for Continuing Indwelling Catheter: Other Urinary Catheter Date of Insertion: 01/29/20 Urinary Catheter Time of Insertion: 14:36 Date Urinary Catheter Removed: 02/02/20 Time Urinary Catheter Discontinued: 06:21 Data : 02/01/20 04:55 02/01/20 04:55 A&P Assessment and plan (1) Altered mental status: -likely multifactorial given significant underlying dementia, recurrent UTI, hyperammonemia -Patient is confused at baseline due to underlying dementia; per daughter confusion has been increasing for the past few days since her recent discharge from the hospital during which time she was treated for UTI and hepatic encephalopathy -supervision with meals -Lactulose PO -ammonia normalized -Treatment of UTI as noted below -Strict fall, aspiration precautions -off IVF hydration; encourage oral hydration -off one-on-one monitoring Status: Resolved Qualifiers: Altered mental status type: unspecified Qualified Code(s): R41.82 - Altered mental status, unspecified (2) Hyperammonemia: -Has noted acute hepatic encephalopathy secondary to underlying liver cirrhosis evidenced by hyperammonemia -Lactulose PO. -ammonia normalized Status: Acute (3) Recurrent UTI: -Has noted history of recurrent UTIs, most recently treated with amoxicillin secondary to Enterococcus faecalis on most recent urine culture -Urinalysis today grossly indicative of infection with noted leukocyte esterase, hematuria, pyuria, bacteria -off abx as urine cx-negative, blood cx-negative -Chow catheter discontinued and has been incontinent Status: Acute (4) Hypothyroidism: -continue levothyroxine Status: Chronic Qualifiers: Hypothyroidism type: unspecified Qualified Code(s): E03.9 - Hypothyroidism, unspecified (5) Normocytic anemia: -Has chronic normocytic anemia -Baseline hemoglobin is around 9; Hg at baseline Status: Chronic (6) Chronic kidney disease, stage III (moderate): -Baseline creatinine appears to be around 1.3-1.7 -renal function at baseline -Avoid nephrotoxins, renally dose meds Status: Chronic (7) Hyponatremia: -Likely secondary to dehydration from poor oral intake -off IVF; encourage oral hydration -Sodium level normalized Status: Resolved (8) Dementia without behavioral disturbance: -Clinically appears to have advanced dementia; baseline mental status tends to wax and wane -off one-on-one monitoring x 72 hrs -continue fall precautions and reorient as needed Status: Chronic Qualifiers: Alzheimer's disease onset: unspecified onset Dementia type: Alzheimer's disease Qualified Code(s): G30.9 - Alzheimer's disease, unspecified; F02.80 - Dementia in other diseases classified elsewhere without behavioral disturbance (9) COPD (chronic obstructive pulmonary disease): -Not oxygen dependent at baseline -No acute exacerbation currently Status: Chronic Qualifiers: COPD type: unspecified COPD Qualified Code(s): J44.9 - Chronic obstructive pulmonary disease, unspecified (10) GERD (gastroesophageal reflux disease): -continue PPI Status: Chronic Qualifiers: Esophagitis presence: esophagitis presence not specified Qualified Code(s): K21.9 - Gastro-esophageal reflux disease without esophagitis (11) Cirrhosis of liver: -Has history of idiopathic liver cirrhosis -Follows up with Dr. Alexis -Noted elevated LFTs, consistent with liver cirrhosis -on rifaximin, Aldactone Status: Chronic Qualifiers: Ascites presence: without ascites Hepatic cirrhosis type: unspecified hepatic cirrhosis Qualified Code(s): K74.60 - Unspecified cirrhosis of liver Additional A&P Information -Chronic constipation, on lactulose -NIDDM type II, A1c (11/2019)-9.7; ISS, hypoglycemia precautions. On Lantus, add some meal time insulin coverage due to noted hyperglycemia -GI ppx with PPI -DVT ppx with SCDs, no AC due to anemia -Dispo: pending auth for [facility] [place] -Code status: FULL code; discussed with daughter over the phone; Cristela is her DPOA Attestations Medical Necessity Statement*: Patient requires hospitalization for continued care pending appropriate disposition. Time Spent in Patient Care: 16 - 35 minutes (>than 50% of time spent in counselling and/or direct pt care on unit). Coding Level of Care Code Acute Sports Administrator for Chg Fwd Exam Comprehensive Diagnoses Altered mental status R41.82 Altered mental status type: unspecified Hyperammonemia E72.20 Recurrent UTI N39.0 Hypothyroidism E03.9 Hypothyroidism type: unspecified Normocytic anemia D64.9 Chronic kidney disease, stage III (moderate) N18.3 Hyponatremia E87.1 Dementia without behavioral disturbance G30.9; F02.80 Alzheimer's disease onset: unspecified onset Dementia type: Alzheimer's disease COPD (chronic obstructive pulmonary disease) J44.9 COPD type: unspecified COPD GERD (gastroesophageal reflux disease) K21.9 Esophagitis presence: esophagitis presence not specified Cirrhosis of liver K74.60 Ascites presence: without ascites Hepatic cirrhosis type: unspecified hepatic cirrhosis
[2020-02-07 16:48] LABS: Glucose Point of Care 103 mg/dL (70-110)
[2020-02-07] MEDS: ipratropium-albuterol 3 mL Neb INHALATION (20:55)
[2020-02-07 21:07] LABS: Glucose Point of Care 224 mg/dL (70-110)
[2020-02-07] MEDS: insulin glargine 100 units/1 mL 45 UNIT SUBCUT (22:04)
[2020-02-08 04:00] VITALS: BP 122/54; PULSE 106; RESP 14; TEMP 37.7; O2SAT 96
[2020-02-08 07:19] VITALS: BP 110/60; PULSE 92; RESP 16; TEMP 36.6; O2SAT 96
[2020-02-08 07:22] LABS: Glucose Point of Care 158 mg/dL (70-110)
[2020-02-08] MEDS: ferrous sulfate EC 325 mg Tablet PO (09:05)
[2020-02-08] MEDS: metoprolol tartrate 25 mg Tablet 12.5 MG PO (09:05)
[2020-02-08] MEDS: lactulose oral liq 20 gm/30 mL UDC 30 GM PO ×2 (09:06→15:46)
[2020-02-08] MEDS: spironolactone 25 mg Tablet PO (09:06)
[2020-02-08] MEDS: pantoprazole DR 40 mg Tablet PO (09:06)
[2020-02-08] MEDS: OLANZapine 5 mg TABLET 2.5 MG PO (09:06)
[2020-02-08] MEDS: levothyroxine 150 mcg Tablet PO (09:06)
[2020-02-08 10:52] LABS: Glucose Point of Care 170 mg/dL (70-110)
[2020-02-08 11:00] VITALS: BP 121/68; PULSE 77; RESP 16; TEMP 36.7; O2SAT 96
--- NOTE | 2020-02-08 12:48 | PM.DCS ---
Discharge Providers Date of Admission: 01/29/20 15:59 Date of Discharge: February 08, 2020 Attending Provider at Admission: Anne Gutierrez MD Attending Provider at Discharge: Anne Gutierrez MD Consults: None Primary Care Provider: Pilo Alexis MD Diagnoses at Discharge Discharge Diagnosis (1) Altered mental status: Status: Resolved Problem details: -likely multifactorial given significant underlying dementia, recurrent UTI, hyperammonemia -Patient is confused at baseline due to underlying dementia; per daughter confusion has been increasing for the past few days since her recent discharge from the hospital during which time she was treated for UTI and hepatic encephalopathy -supervision with meals -Lactulose PO -ammonia normalized -Treatment of UTI as noted below -Strict fall, aspiration precautions -off IVF hydration; encourage oral hydration -off one-on-one monitoring Qualifiers: Altered mental status type: unspecified Qualified Code(s): R41.82 - Altered mental status, unspecified (2) Hyperammonemia: Status: Resolved Problem details: -Has noted acute hepatic encephalopathy secondary to underlying liver cirrhosis evidenced by hyperammonemia -Lactulose PO. -ammonia normalized (3) Recurrent UTI: Status: Chronic Problem details: -Has noted history of recurrent UTIs, most recently treated with amoxicillin secondary to Enterococcus faecalis on most recent urine culture -Urinalysis today grossly indicative of infection with noted leukocyte esterase, hematuria, pyuria, bacteria -off abx as urine cx-negative, blood cx-negative -Chow catheter discontinued and has been incontinent (4) Hypothyroidism: Status: Chronic Problem details: -continue levothyroxine Qualifiers: Hypothyroidism type: unspecified Qualified Code(s): E03.9 - Hypothyroidism, unspecified (5) Normocytic anemia: Status: Chronic Problem details: -Has chronic normocytic anemia -Baseline hemoglobin is around 9; Hg at baseline (6) Chronic kidney disease, stage III (moderate): Status: Chronic Problem details: -Baseline creatinine appears to be around 1.3-1.7 -renal function at baseline -Avoid nephrotoxins, renally dose meds (7) Hyponatremia: Status: Resolved Problem details: -Likely secondary to dehydration from poor oral intake -off IVF; encourage oral hydration -Sodium level normalized (8) Dementia without behavioral disturbance: Status: Chronic Problem details: -Clinically appears to have advanced dementia; baseline mental status tends to wax and wane -off one-on-one monitoring x 96 hrs -continue fall precautions and reorient as needed Qualifiers: Alzheimer's disease onset: unspecified onset Dementia type: Alzheimer's disease Qualified Code(s): G30.9 - Alzheimer's disease, unspecified; F02.80 - Dementia in other diseases classified elsewhere without behavioral disturbance (9) COPD (chronic obstructive pulmonary disease): Status: Chronic Problem details: -Not oxygen dependent at baseline -No acute exacerbation currently Qualifiers: COPD type: unspecified COPD Qualified Code(s): J44.9 - Chronic obstructive pulmonary disease, unspecified (10) GERD (gastroesophageal reflux disease): Status: Chronic Problem details: -continue PPI Qualifiers: Esophagitis presence: esophagitis presence not specified Qualified Code(s): K21.9 - Gastro-esophageal reflux disease without esophagitis (11) Cirrhosis of liver: Status: Chronic Problem details: -Has history of idiopathic liver cirrhosis -Follows up with Dr. Alexis -Noted elevated LFTs, consistent with liver cirrhosis -on rifaximin, Aldactone Qualifiers: Ascites presence: without ascites Hepatic cirrhosis type: unspecified hepatic cirrhosis Qualified Code(s): K74.60 - Unspecified cirrhosis of liver Other Information Additional DC diagnoses/information: -Chronic constipation, on lactulose -NIDDM type II, A1c (11/2019)-9.7; ISS, hypoglycemia precautions. On Lantus, add some meal time insulin coverage due to noted hyperglycemia Reason for Visit Reason for Visit: INCREASED CONFUSION Hospital Course Hospital Course: Patient was admitted to the medical surgical floor and started on lactulose enemas due to obtundation from hepatic encephalopathy. Ammonia levels improved and once her mentation improved as well, she was able to take oral lactulose. She was also found to have evidence of a urinary tract infection which she seems to be prone to for which she was treated with antibiotics. She had recently been admitted and treated for UTI secondary to Enterococcus faecalis with amoxicillin. Repeat urine cultures during this hospitalization were negative at which point antibiotics were discontinued. Blood cultures have also been negative. She was also found to be hyponatremic for which she received some gentle IV fluid hydration and sodium levels have stabilized. She will likely have some degree of hyponatremia secondary to underlying liver cirrhosis. She is chronically anemic and hemoglobin has been monitored during her hospitalization able and she has not required transfusion of any blood products. She appears to have some degree of dementia given her cognitive impairment that has persisted with intermittent increased periods of confusion. She initially required one-on-one monitoring but with stabilization and easy redirection this was discontinued and she has done well. She is overall quite deconditioned with multiple hospitalizations so discussed alternative disposition with family and daughter was agreeable to pursuing SNF placement. Patient has been accepted to [facility] where she will be discharged today. Discharge Summary: -Patient to follow-up with primary care physician as scheduled Physical Exam Const: COMMON NORMALS: alert GENERAL APPEARANCE: frail appearing and appears older than stated age NUTRITIONAL APPEARANCE: obese ORIENTATION/CONSCIOUSNESS: Yes awake and Yes confused OTHER: -Resting in bed HENMT: COMMON NORMALS: normocephalic, atraumatic, hearing grossly normal bilaterally and moist oral mucous membranes HEAD & SCALP: normocephalic and atraumatic MOUTH: moist mucous membranes abnormal Details: parched Eye: COMMON NORMALS: Equal, round and reactive pupils present, EOMs intact bilaterally and conjunctivae normal CONJUNCTIVA: Yes conjunctivae normal PUPIL: Yes Equal, round and reactive pupils present Neck/C-Spine: COMMON NORMALS: full ROM GENERAL: Yes normal visual inspection and Yes trachea midline Resp: COMMON NORMALS: normal respiratory effort, No retractions, No use of accessory muscles and clear to auscultation bilaterally EFFORT & INSPECTION: Yes able to speak in complete sentences, Yes symmetric chest movement and No tachypneic AUSCULTATION: clear to auscultation bilaterally OTHER: -on RA Cardio: COMMON NORMALS: regular rate, regular rhythm, S1 normal heart sound present, S2 normal heart sound present and No murmurs present (Cardio) RATE: regular rate RHYTHM: regular rhythm HEART SOUNDS: S1 normal heart sound present and S2 normal heart sound present GI: COMMON NORMALS: Normal to inspection, nondistended, normoactive bowel sounds present and Soft to palpation INSPECTION: Yes central obesity PALPATION: Yes Soft to palpation Extremity: COMMON NORMALS: normal to inspection, full ROM and no clubbing, cyanosis or edema; negative for no pedal edema Neuro: COMMON NORMALS: moves all extremities, no focal motor deficits and no sensory deficits noted SENSORIUM/ORIENTATION: Yes alert and Yes Orientation impaired Psych: COMMON NORMALS: speech normal ATTITUDE: Yes calm SPEECH: Yes normal speech MOOD & AFFECT: Yes Flat affect present MEMORY/COGNITION: Yes cognition grossly impaired INSIGHT: Poor insight present (Psych) Skin: COMMON NORMALS: no rashes or lesions noted, no jaundice, no petechiae and no mottling GENERAL SKIN EXAM: no rashes or lesions noted Urinary Catheter Management^: Chow: Cath Placed During This Visit: yes, but has since been removed by the nurse Reason for Continuing Indwelling Catheter: Other Urinary Catheter Date of Insertion: 01/29/20 Urinary Catheter Time of Insertion: 14:36 Date Urinary Catheter Removed: 02/02/20 Time Urinary Catheter Discontinued: 06:21 Discharge Data Data Completed and Pending: Completed Studies During Hospitalization Category Date Time Status XR chest 1V sarina ble [id number] Stat Exams 01/29/20 13:50 Completed Labs from last 24 hours 02/08/20 02/08/20 02/07/20 10:41 06:45 20:58 POC Glucose 170 158 224 02/07/20 02/07/20 16:41 13:01 POC Glucose 103 95 Vitals: Last Vital Signs Temp 98.0 F 02/08/20 11:00 Pulse 77 02/08/20 11:00 Resp 16 02/08/20 11:00 BP 121/68 02/08/20 11:00 Pulse Ox 96 02/08/20 11:00 Discharge Plan Discharge Patient Disposition: Xfer SNF Condition: Stable Prescriptions: Continued (DME) pen needle, diabetic [Pen Needle] 31 gauge x 5/16 needle See Rx Instructions .ROUTE .MEDSUPPLY Qty: 100 RF: 12 hydrocodone-acetaminophen 5-325 mg tablet 1 tab PO Q8H PRN (Reason: pain) Qty: 30 RF: 0 olanzapine 5 mg tablet 2.5 mg PO BID Qty: 30 RF: 0 allopurinol 100 mg tablet 100 mg PO DAILY Qty: 30 RF: 3 aspirin 81 mg tablet,delayed release (DR/EC) 81 mg PO DAILY Qty: 30 RF: 0 spironolactone 25 mg tablet 25 mg PO DAILY Qty: 30 RF: 0 gabapentin 800 mg tablet 800 mg PO TID Qty: 90 RF: 0 ferrous sulfate 325 mg (65 mg iron) tablet 325 mg PO EVERY OTHER DAY Qty: 30 RF: 0 omeprazole 20 mg capsule,delayed release(DR/EC) 20 mg PO DAILY Qty: 30 RF: 0 ProAir HFA 90 mcg/actuation HFA aerosol inhaler 2 puff INHALATION Q6H PRN (Reason: shortness of breath) Qty: 8.5 RF: 3 metoprolol tartrate 25 mg tablet 12.5 mg PO BID Qty: 30 RF: 0 Cymbalta 30 mg Capsule,Delayed Release(Dr/Ec) 30 mg PO BID Qty: 60 RF: 0 levothyroxine 150 mcg capsule 150 mcg PO DAILY Qty: 30 RF: 0 Xifaxan 550 MG 550 mg PO BID Qty: 60 RF: 0 Victoza 3-Porter 0.6 mg/0.1 mL (18 mg/3 mL) pen injector 1.8 mg SUBCUT Q24H Qty: 9 RF: 0 lactulose 20 gram/30 mL solution 30 g PO TID Qty: 1200 RF: 0 Changed Lantus U-100 Insulin 100 unit/mL solution 45 unit SUBCUT BID Qty: 10 RF: 0 Humalog KwikPen Insulin 100 unit/mL insulin pen 10 unit SUBCUT .tidac Qty: 3 RF: 0 Discontinued amlodipine 5 mg tablet 5 mg PO DAILY Qty: 30 RF: 3 amoxicillin 500 mg Capsule 1,000 mg PO BID Qty: 36 RF: 0 sennosides [Senna Lax] 8.6 mg Tablet 17.2 mg PO BEDTIME Qty: 30 RF: 0 Discharge Orders: Discharge Order (Routine); Ordered 02/08/20 Ordered By: Anne Gutierrez Referrals: [facility] [Outside] Pilo Alexis MD [Primary Care Provider] - 02/14/20 3:15 pm (Post hospital discharge follow up) Discharge Diet: Cardiac and Diabetic Discharge Activity: Increase activity as tolerated and As per PT/OT instructions Patient Instructions: Anemia, Iron Rich Diet (DC), Hypothyroidism (DC), Altered Mental Status (GEN) Activity Restrictions/Additional Instructions: -Please continue strict fall precautions -Patient may require assistance with meals Discharge Attestations Time Spent in Discharge Care*: greater than 30 min Specific Discharge Activities: Specific discharge activities: educating and/or supporting family/caregiver, discussing with family service caseworker/social workers/dc planners, documenting/other paperwork and evaluating patient/reviewing data Status at Discharge: Cognitive status at discharge: moderately impaired cognition, Behavioral status at discharge: cooperative and can be uncooperative, Functional status at discharge: uses cane/walker (with supervision) Overall status at discharge: patient is progressing back to baseline Quality Metrics Clinical Quality Measures During this hospital stay, did patient experience: None Coding Level of Care Code Acute Perinatal Tech for Chg Fwd Exam Comprehensive Diagnoses Altered mental status R41.82 Altered mental status type: unspecified Hyperammonemia E72.20 Recurrent UTI N39.0 Hypothyroidism E03.9 Hypothyroidism type: unspecified Normocytic anemia D64.9 Chronic kidney disease, stage III (moderate) N18.3 Hyponatremia E87.1 Dementia without behavioral disturbance G30.9; F02.80 Alzheimer's disease onset: unspecified onset Dementia type: Alzheimer's disease COPD (chronic obstructive pulmonary disease) J44.9 COPD type: unspecified COPD GERD (gastroesophageal reflux disease) K21.9 Esophagitis presence: esophagitis presence not specified Cirrhosis of liver K74.60 Ascites presence: without ascites Hepatic cirrhosis type: unspecified hepatic cirrhosis
[2020-02-08 15:39] VITALS: BP 132/68; PULSE 59; RESP 16; TEMP 37.3; O2SAT 96
[2020-02-08 16:48] LABS: Glucose Point of Care 368 mg/dL (70-110)
[2020-02-08 17:52] VITALS: BP 132/68; PULSE 59; RESP 16; TEMP 37.3; O2SAT 96
== END 2020-02-08 16:45 | disposition skilled nursing facility (03) | DRG 442 ==
LOC: ER 15:43 → MEDSURG 16:57
PROVIDERS: Emergency Medicine; Admitting Provider Family Medicine; PCP Internal Medicine; Visit Provider Family Medicine
DX: K72.00 Acute and subacute hepatic failure without coma (principal); E87.1 Hypo-osmolality and hyponatremia; N39.0 Urinary tract infection, site not specified; E72.20 Disorder of urea cycle metabolism, unspecified; K74.60 Unspecified cirrhosis of liver; E11.22 Type 2 diabetes mellitus with diabetic chronic kidney disease; I12.9 Hypertensive chronic kidney disease with stage 1 through stage 4 chronic kidney disease, or unspecified chronic kidney disease; N18.3 Chronic kidney disease, stage 3 (moderate); G30.9 Alzheimer's disease, unspecified; F02.80 Dementia in other diseases classified elsewhere, unspecified severity, without behavioral disturbance, psychotic disturbance, mood disturbance, and anxiety; E83.42 Hypomagnesemia; E03.9 Hypothyroidism, unspecified; D64.9 Anemia, unspecified; K21.9 Gastro-esophageal reflux disease without esophagitis; K59.09 Other constipation; E11.65 Type 2 diabetes mellitus with hyperglycemia; E86.0 Dehydration; J44.9 Chronic obstructive pulmonary disease, unspecified; Z79.82 Long term (current) use of aspirin; B95.2 Enterococcus as the cause of diseases classified elsewhere; M79.7 Fibromyalgia
CPT/HCPCS: 12345; 36415; 36416; 51702; 71045; 80053; 81001; 81003; 82009; 82140; 82962; 83605; 83690; 84145; 85014; 85018; 85025; 86140; 87040; 87086; 94640; 96372; 97161; 97530; 99283; J0743; J1630; J1815 ×2; J2060; J2270; J2543

== ENCOUNTER 2020-02-24 13:59 | Outpatient (CLI) | payer MEDICARE, MEDICAID, SELFPAY ==
[2020-02-24 15:17] LABS: Bilirubin Urine Neg (NEGATIVE); Blood Urine 3+ (Negative); Glucose Urine UA Norm (Normal); Ketones Urine 1+ (Negative); Nitrate Urine Negative (Negative); Protein Urine 2+ (Negative); Specific Gravity, Urine 1.005 (1.005-1.030); Urine Appearance Cloudy (CLEAR); Urine Color Amber (Yellow); pH Urine 5 (5-7)
[2020-02-24 15:18] LABS: Add Urine Culture? Yes; Add Urine Microscopic? YES; Bacteria Urine 4+; Leukocyte Esterase Urine 2+ (Negative); RBC Urine 15-25 /hpf (0-2); Urobilinogen Urine Norm (Negative); WBC Urine >100 /hpf (0-5)
== END 2020-02-24 14:00 | disposition home or self-care (01) ==
PROVIDERS: PCP Family Medicine; Visit Provider Family Medicine
DX: R31.9 Hematuria, unspecified (principal)
CPT/HCPCS: 81001; 87077; 87086; 87186

== ENCOUNTER 2020-03-23 11:56 | Inpatient (IN) | payer MEDICARE, MEDICAID, SELFPAY ==
[2020-03-23] VITALS (9 sets, daily range): BP systolic 100–156; BP diastolic 40–69; PULSE 93–114; RESP 16–22; TEMP 36.6–36.9; O2SAT 92–100; BMI 33.3
[2020-03-23 12:10] LABS: Glucose Point of Care 112 mg/dL (70-110)
--- NOTE | 2020-03-23 12:20 | XRR_ITS ---
PROCEDURE INFORMATION: Exam: XR Chest, 1 View Exam date and time: 03/23/2020 12:25 PM Age: 75 years old Clinical indication: Shortness of breath; Patient HX: AMS w SOB; Additional info: Altered mental status TECHNIQUE: Imaging protocol: XR of the chest Views: 1 view. COMPARISON: No relevant prior studies available. FINDINGS: Lungs: No acute pneumonia or edema. Pleural space: Unremarkable. No pleural effusion. No pneumothorax. Heart/Mediastinum: Unremarkable. No cardiomegaly. Diaphragm: There is elevation of the right hemidiaphragm. Bones/joints: Unremarkable. XR/XR chest 1V portable [id number] IMPRESSION: There are no acute concerning abnormalities.
--- NOTE | 2020-03-23 12:25 | W.ED.AMS ---
HPI - Altered Mental Status General: Chief Complaint: Altered Mental Status Stated Complaint: AMS Time Seen by Provider: 03/23/20 11:57 Source: EMS Mode of arrival: EMS Limitations: altered mental status History of Present Illness: HPI narrative: Patient is a [place] resident who has a history of dementia, liver cirrhosis, diabetes, hypertension who presents to the emergency department with a history of altered mental status. half-way staff says that this morning the patient was noticed to have a reduced responsiveness and they also noted that she was hypoglycemic. When the ambulance crew arrived her blood glucose was in the 60s and she was given some dextrose after which her blood glucose increased to the 100s. She however remains unresponsive. She apparently has a history also of frequent urinary tract infections. MD complaint: decreased responsiveness Onset (ago): hour(s) Review of Systems General: Reports: ROS unobtainable due to mental status PFS ED PFSH: Medical History (Updated 03/23/20 @ 23:15 by Janet Nelson MD, [facility]) Chronic kidney disease, stage III (moderate) -Baseline creatinine appears to be around 1.3-1.7 Cirrhosis of liver -Has history of idiopathic liver cirrhosis COPD (chronic obstructive pulmonary disease) -Not oxygen dependent at baseline Dementia without behavioral disturbance -Clinically appears to have advanced dementia; DM2 (diabetes mellitus, type 2) Fibromyalgia Frailty GERD (gastroesophageal reflux disease) -continue PPI Hyperammonemia Hypertension Hyponatremia Hypothyroidism Normocytic anemia -Has chronic normocytic anemia -Hematuria, history of rectal prolapse, transvaginal ultrasound recommended as well Obstructive pyelonephritis Status post ureteral stent removal Recurrent UTI Incontinent, ESBL, Klebsiella, Enterococcus faecalis, E. coli Surgical History H/O eye surgery S/P cataract extraction S/P cholecystectomy Status post carpal tunnel release of both wrists Family History Other Cancer Diabetes Heart disease Social History Smoking and tobacco status: never smoked Alcohol intake: never Marital status: / History of recent travel: No Additional social history: - Tobacco use: Denies Alcohol use: Denies Drug use: Denies Physical Exam Const: COMMON NORMALS: no acute distress, no limitations, alert and well nourished EXAM LIMITATIONS: altered mental status OTHER: Strong odor of urine HENMT: COMMON NORMALS: normocephalic, atraumatic and moist oral mucous membranes HEAD & SCALP: normocephalic and atraumatic Eye: COMMON NORMALS: Equal, round and reactive pupils present, EOMs intact bilaterally, conjunctivae normal and no scleral icterus CONJUNCTIVA: Yes conjunctivae normal PUPIL: Yes Equal, round and reactive pupils present Neck/C-Spine: COMMON NORMALS: no meningeal signs and no JVD Resp: COMMON NORMALS: normal respiratory effort, No retractions and No use of accessory muscles AUSCULTATION: rales and rhonchi Cardio: COMMON NORMALS: no JVD, regular rate, regular rhythm, S1 normal heart sound present, S2 normal heart sound present, No gallops present (Cardio), No clicks present (Cardio), No murmurs present (Cardio), No rub (Cardio) and Peripheral pulses 2+ throughout RATE: regular rate RHYTHM: regular rhythm HEART SOUNDS: S1 normal heart sound present and S2 normal heart sound present PERIPHERAL PULSES: Peripheral pulses 2+ throughout GI: COMMON NORMALS: Normal to inspection, nondistended, normoactive bowel sounds present, Soft to palpation, non-tender, No hepatosplenomegaly present, no masses and no bruits PALPATION: Yes Soft to palpation and Yes No hepatosplenomegaly present Extremity: COMMON NORMALS: normal to inspection, full ROM, capillary refill normal, no calf tenderness and no pedal edema Neuro: SENSORIUM/ORIENTATION: Yes alert MENINGEAL SIGNS: Yes no meningeal signs Skin: COMMON NORMALS: no rashes or lesions noted, no wounds, turgor normal, no jaundice, no petechiae and no mottling GENERAL SKIN EXAM: no rashes or lesions noted and turgor normal Course ED course: 75-year-old [place] resident who was brought into the emergency department secondary to altered mental status. The patient was unresponsive on arrival, was hypoglycemic when EMS got there and she was given intravenous dextrose solution. Her blood glucose improved. She remained unresponsive. Evaluation in the emergency department showed that she had a UTI, was not septic, and had elevated troponin which may be a demand ischemia. After resuscitation and intravenous antibiotics patient became alert although she appears to be confused at baseline. She is admitted for further evaluation and management. Consultations: Consultation #1: Discussed with Dr. Santamaria, hospitalist and he kindly accepted the patient to his service Time: 18:30 Consultation #2: Discussed the patient with Dr. Kong, klystrom tube tester. He does not believe this patient needs to be anticoagulated and managed as a case of a non-STEMI He is happy to consult on the patient if the hospitalist wants him to. Time: 18:45 Vital Signs: Vital signs: Vital Signs Temperature 98.5 F 03/23/20 20:45 Pulse Rate 107 H 03/23/20 20:45 Respiratory Rate 19 H 03/23/20 20:45 Blood Pressure 149/69 03/23/20 20:45 Pulse Oximetry 98 03/23/20 20:45 MDM - Altered Mental Status MDM Narrative: Medical decision making narrative: 75-year-old female patient who presents with an altered level of consciousness. Evaluation in the emergency department states she has a UTI, elevated troponins. She is also anemic. She is admitted to the hospitalist service for further evaluation and management. Medical Records: Attestation: I reviewed the patient's medical records. Lab Data: Attestation: I reviewed the patient's lab results. Labs: Lab Results 03/23/20 03/23/20 03/23/20 Range/Units 11:49 11:49 11:49 WBC 12.5 H (4.0-10.0) 10^3/ uL RBC 2.77 L (4.1-5.3) 10^6/u L Hgb 7.7 L (11.5-15.3) g/dL Hct 26.1 L (37.0-47.0) % MCV 94.2 (81-99) fL MCH 27.8 L (28.0-34.0) pg MCHC 29.5 L (30.0-36.0) g/dL RDW 21.2 H (12.1-15.1) % Plt Count 426 H (130-400) 10^3/c mm MPV 9.2 (7.4-10.4) fL Neut % (Auto) 52.1 % Lymph % (Auto) 36.7 % [place] % (Auto) 8.6 % Eos % (Auto) 1.8 % Baso % (Auto) 0.2 % Neut # (Auto) 6.52 (1.8-7.7) 10^3/u L Lymph # (Auto) 4.6 (0.8-4.8) 10^3/u L [place] # (Auto) 1.1 H (0.2-0.9) 10^3/u L Eos # (Auto) 0.2 (0.0-0.8) 10^3/u L Baso # (Auto) 0.0 (0.0-0.1) 10^3/u L Nucleated RBC % (a uto) 0 % Nucleated RBCs # 0.0 /100WBC PT 14.30 (12.1-14.9) SECO NDS INR 1.07 (0.8-1.2) Fibrinogen 401 (174-498) mg/dL D-Dimer 1.14 H (0-0.59) ug/mIFE U Sodium 139 (136-145) mmol/L Potassium 4.4 (3.5-5.1) mmol/L Chloride 109 H (98-107) mmol/L Carbon Dioxide 18 L (22-29) mmol/L Anion Gap 16.4 (5-19) BUN 39 H (8-23) mg/dL Creatinine 1.9 H (0.5-0.9) mg/dL GFR Calculation Not Reportable Glucose 59 L (65-115) mg/dL POC Glucose (70-110) mg/dL Calculated Osmolal ity 295 (285-295) mOsm/k g Lactic Acid (0.5-2.2) mmol/L Calcium 8.8 (8.5-10.5) mg/dL Ferritin 84 (15-150) ng/mL Total Bilirubin 0.3 (0.15-1.2) mg/dL AST 27 (0-32) U/L ALT 8 (0-33) U/L Alkaline Phosphata se 158 H (35-105) IU/L Ammonia (11-51) umol/L Troponin T Baselin e (0-10) ng/L Troponin T 120 Min rosebud (0-10) ng/L Delta Troponin T (0-10) ABS# Troponin T Hi Sens 6Hr (0-10) ng/L Troponin T Hi Sens 6Hr Delta (0-12) ng/L C-Reactive Protein 3.1 (0.0-4.9) mg/L Total Protein 8.7 (6.6-8.7) g/dL Albumin 3.3 L (3.5-5.2) g/dL Globulin 5.4 H (1.3-4.6) g/dL Procalcitonin 0.10 (0-0.5) ng/mL Urine Color (Yellow) Urine Appearance (CLEAR) Urine pH (5-7) Ur Specific Gravit y (1.005-1.030) Urine Protein (Negative) Urine Glucose (UA) (Normal) Urine Ketones (Negative) Urine Blood (Negative) Urine Nitrate (Negative) Urine Bilirubin (Negative) Urine Urobilinogen (Negative) mg/dL Ur Leukocyte Roxie ase (Negative) Urine RBC (0-2) /hpf Urine WBC (0-5) /hpf Ur Squamous Epith Cells (0-5) /hpf Amorphous Sediment Urine Bacteria (NONE) /hpf SARS-CoV-2 Ag (Rap id) (Negative) 03/23/20 03/23/20 03/23/20 Range/Units 11:49 12:05 12:40 WBC (4.0-10.0) 10^3/ uL RBC (4.1-5.3) 10^6/u L Hgb (11.5-15.3) g/dL Hct (37.0-47.0) % MCV (81-99) fL MCH (28.0-34.0) pg MCHC (30.0-36.0) g/dL RDW (12.1-15.1) % Plt Count (130-400) 10^3/c mm MPV (7.4-10.4) fL Neut % (Auto) % Lymph % (Auto) % [place] % (Auto) % Eos % (Auto) % Baso % (Auto) % Neut # (Auto) (1.8-7.7) 10^3/u L Lymph # (Auto) (0.8-4.8) 10^3/u L [place] # (Auto) (0.2-0.9) 10^3/u L Eos # (Auto) (0.0-0.8) 10^3/u L Baso # (Auto) (0.0-0.1) 10^3/u L Nucleated RBC % (a uto) % Nucleated RBCs # /100WBC PT (12.1-14.9) SECO NDS INR (0.8-1.2) Fibrinogen (174-498) mg/dL D-Dimer (0-0.59) ug/mIFE U Sodium (136-145) mmol/L Potassium (3.5-5.1) mmol/L Chloride (98-107) mmol/L Carbon Dioxide (22-29) mmol/L Anion Gap (5-19) BUN (8-23) mg/dL Creatinine (0.5-0.9) mg/dL GFR Calculation Glucose (65-115) mg/dL POC Glucose 112 (70-110) mg/dL Calculated Osmolal ity (285-295) mOsm/k g Lactic Acid (0.5-2.2) mmol/L Calcium (8.5-10.5) mg/dL Ferritin (15-150) ng/mL Total Bilirubin (0.15-1.2) mg/dL AST (0-32) U/L ALT (0-33) U/L Alkaline Phosphata se (35-105) IU/L Ammonia (11-51) umol/L Troponin T Baselin e 23 H (0-10) ng/L Troponin T 120 Min rosebud (0-10) ng/L Delta Troponin T (0-10) ABS# Troponin T Hi Sens 6Hr (0-10) ng/L Troponin T Hi Sens 6Hr Delta (0-12) ng/L C-Reactive Protein (0.0-4.9) mg/L Total Protein (6.6-8.7) g/dL Albumin (3.5-5.2) g/dL Globulin (1.3-4.6) g/dL Procalcitonin (0-0.5) ng/mL Urine Color (Yellow) Urine Appearance (CLEAR) Urine pH (5-7) Ur Specific Gravit y (1.005-1.030) Urine Protein (Negative) Urine Glucose (UA) (Normal) Urine Ketones (Negative) Urine Blood (Negative) Urine Nitrate (Negative) Urine Bilirubin (Negative) Urine Urobilinogen (Negative) mg/dL Ur Leukocyte Roxie ase (Negative) Urine RBC (0-2) /hpf Urine WBC (0-5) /hpf Ur Squamous Epith Cells (0-5) /hpf Amorphous Sediment Urine Bacteria (NONE) /hpf SARS-CoV-2 Ag (Rap id) Negative (Negative) 03/23/20 03/23/20 03/23/20 Range/Units 12:45 12:45 12:57 WBC (4.0-10.0) 10^3/ uL RBC (4.1-5.3) 10^6/u L Hgb (11.5-15.3) g/dL Hct (37.0-47.0) % MCV (81-99) fL MCH (28.0-34.0) pg MCHC (30.0-36.0) g/dL RDW (12.1-15.1) % Plt Count (130-400) 10^3/c mm MPV (7.4-10.4) fL Neut % (Auto) % Lymph % (Auto) % [place] % (Auto) % Eos % (Auto) % Baso % (Auto) % Neut # (Auto) (1.8-7.7) 10^3/u L Lymph # (Auto) (0.8-4.8) 10^3/u L [place] # (Auto) (0.2-0.9) 10^3/u L Eos # (Auto) (0.0-0.8) 10^3/u L Baso # (Auto) (0.0-0.1) 10^3/u L Nucleated RBC % (a uto) % Nucleated RBCs # /100WBC PT (12.1-14.9) SECO NDS INR (0.8-1.2) Fibrinogen (174-498) mg/dL D-Dimer (0-0.59) ug/mIFE U Sodium (136-145) mmol/L Potassium (3.5-5.1) mmol/L Chloride (98-107) mmol/L Carbon Dioxide (22-29) mmol/L Anion Gap (5-19) BUN (8-23) mg/dL Creatinine (0.5-0.9) mg/dL GFR Calculation Glucose (65-115) mg/dL POC Glucose (70-110) mg/dL Calculated Osmolal ity (285-295) mOsm/k g Lactic Acid 1.7 (0.5-2.2) mmol/L Calcium (8.5-10.5) mg/dL Ferritin (15-150) ng/mL Total Bilirubin (0.15-1.2) mg/dL AST (0-32) U/L ALT (0-33) U/L Alkaline Phosphata se (35-105) IU/L Ammonia 36 (11-51) umol/L Troponin T Baselin e (0-10) ng/L Troponin T 120 Min rosebud (0-10) ng/L Delta Troponin T (0-10) ABS# Troponin T Hi Sens 6Hr (0-10) ng/L Troponin T Hi Sens 6Hr Delta (0-12) ng/L C-Reactive Protein (0.0-4.9) mg/L Total Protein (6.6-8.7) g/dL Albumin (3.5-5.2) g/dL Globulin (1.3-4.6) g/dL Procalcitonin (0-0.5) ng/mL Urine Color Yellow (Yellow) Urine Appearance Cloudy (CLEAR) Urine pH 5 (5-7) Ur Specific Gravit y 1.010 (1.005-1.030) Urine Protein Neg (Negative) Urine Glucose (UA) Norm (Normal) Urine Ketones Negative (Negative) Urine Blood 3+ H (Negative) Urine Nitrate Negative (Negative) Urine Bilirubin Neg (Negative) Urine Urobilinogen Norm (Negative) mg/dL Ur Leukocyte Roxie ase 2+ H (Negative) Urine RBC 40-50 H (0-2) /hpf Urine WBC >100 H (0-5) /hpf Ur Squamous Epith Cells 0-4 H (0-5) /hpf Amorphous Sediment Not Reportable Urine Bacteria 4+ H (NONE) /hpf SARS-CoV-2 Ag (Rap id) (Negative) 03/23/20 03/23/20 Range/Units 14:01 17:58 WBC (4.0-10.0) 10^3/ uL RBC (4.1-5.3) 10^6/u L Hgb (11.5-15.3) g/dL Hct (37.0-47.0) % MCV (81-99) fL MCH (28.0-34.0) pg MCHC (30.0-36.0) g/dL RDW (12.1-15.1) % Plt Count (130-400) 10^3/c mm MPV (7.4-10.4) fL Neut % (Auto) % Lymph % (Auto) % [place] % (Auto) % Eos % (Auto) % Baso % (Auto) % Neut # (Auto) (1.8-7.7) 10^3/u L Lymph # (Auto) (0.8-4.8) 10^3/u L [place] # (Auto) (0.2-0.9) 10^3/u L Eos # (Auto) (0.0-0.8) 10^3/u L Baso # (Auto) (0.0-0.1) 10^3/u L Nucleated RBC % (a uto) % Nucleated RBCs # /100WBC PT (12.1-14.9) SECO NDS INR (0.8-1.2) Fibrinogen (174-498) mg/dL D-Dimer (0-0.59) ug/mIFE U Sodium (136-145) mmol/L Potassium (3.5-5.1) mmol/L Chloride (98-107) mmol/L Carbon Dioxide (22-29) mmol/L Anion Gap (5-19) BUN (8-23) mg/dL Creatinine (0.5-0.9) mg/dL GFR Calculation Glucose (65-115) mg/dL POC Glucose (70-110) mg/dL Calculated Osmolal ity (285-295) mOsm/k g Lactic Acid (0.5-2.2) mmol/L Calcium (8.5-10.5) mg/dL Ferritin (15-150) ng/mL Total Bilirubin (0.15-1.2) mg/dL AST (0-32) U/L ALT (0-33) U/L Alkaline Phosphata se (35-105) IU/L Ammonia (11-51) umol/L Troponin T Baselin e (0-10) ng/L Troponin T 120 Min rosebud 31.66 H (0-10) ng/L Delta Troponin T 8.66 (0-10) ABS# Troponin T Hi Sens 6Hr 44.76 H (0-10) ng/L Troponin T Hi Sens 6Hr Delta 21.76 H* (0-12) ng/L C-Reactive Protein (0.0-4.9) mg/L Total Protein (6.6-8.7) g/dL Albumin (3.5-5.2) g/dL Globulin (1.3-4.6) g/dL Procalcitonin (0-0.5) ng/mL Urine Color (Yellow) Urine Appearance (CLEAR) Urine pH (5-7) Ur Specific Gravit y (1.005-1.030) Urine Protein (Negative) Urine Glucose (UA) (Normal) Urine Ketones (Negative) Urine Blood (Negative) Urine Nitrate (Negative) Urine Bilirubin (Negative) Urine Urobilinogen (Negative) mg/dL Ur Leukocyte Roxie ase (Negative) Urine RBC (0-2) /hpf Urine WBC (0-5) /hpf Ur Squamous Epith Cells (0-5) /hpf Amorphous Sediment Urine Bacteria (NONE) /hpf SARS-CoV-2 Ag (Rap id) (Negative) Imaging Data^: CXR: Radiologist's impression: [place] [address] XRay Report Signed Patient: Melba Newman #: [id number] : 6Acct#:[id number] Age/Sex: 75 / FADM Date: 03/23/20 Loc: [facility]/Bed: Attending Dr: Ordering Provider/Ordering MD: Janet Nelson MD, [facility] Date of Service: 03/23/20 Procedure(s): XR chest 1V portable [id number] Accession Number(s): [id number] Report Number: [id number] PROCEDURE INFORMATION: Exam: XR Chest, 1 View Exam date and time: 03/23/2020 12:25 PM Age: 75 years old Clinical indication: Shortness of breath; Patient HX: AMS w SOB; Additional info: Altered mental status TECHNIQUE: Imaging protocol: XR of the chest Views: 1 view. COMPARISON: No relevant prior studies available. FINDINGS: Lungs: No acute pneumonia or edema. Pleural space: Unremarkable. No pleural effusion. No pneumothorax. Heart/Mediastinum: Unremarkable. No cardiomegaly. Diaphragm: There is elevation of the right hemidiaphragm. Bones/joints: Unremarkable. XR/XR chest 1V portable [id number] IMPRESSION: There are no acute concerning abnormalities. Dictated By:Ender Stockton MD Signed By:Ender Stockton MDSigned Date/Time:03/23/20 141 DD/ 141 CT Head: Radiologist's impression: [address] [address] [address] Scan Report Signed Patient: Melba Newman #: [id number] : 1945t#:[id number] Age/Sex: 75 / FADM Date: 03/23/20 Loc: [facility]/Bed: Attending Dr: Ordering Provider/Ordering MD: Janet Nelson MD, [facility] Date of Service: 03/23/20 Procedure(s): CT head wo con* [id number] Accession Number(s): [id number] Report Number: [id number] PROCEDURE INFORMATION: Exam: CT Head Without Contrast Exam date and time: 03/23/2020 1:22 PM Age: 75 years old Clinical indication: Altered mental status/memory loss; Confusion or disorientation TECHNIQUE: Imaging protocol: Computed tomography of the head without contrast. Radiation optimization: All CT scans at this facility use at least one of these dose optimization techniques: automated exposure control; mA and/or kV adjustment per patient size (includes targeted exams where dose is matched to clinical indication); or iterative reconstruction. COMPARISON: CT head wo con* [id number] 01/23/2020 4:36 PM RADIATION DOSE METRICS: Total DLP (mGy-cm): 850.95 FINDINGS: Brain: Moderate white matter disease and volume loss are identified. There is no acute infarct or edema. No hemorrhage. Cerebral ventricles: No ventriculomegaly. Bones/joints: Unremarkable. No acute fracture. Paranasal sinuses: Visualized sinuses are unremarkable. No fluid levels. Mastoid air cells: Visualized mastoid air cells are well aerated. Soft tissues: Unremarkable. CT/CT head wo con* [id number] IMPRESSION: There are no acute concerning abnormalities. Radiation Dose CTDIVOL = (mGy): DLP = 850.95 (mGy-cm) Dictated By:Ender Stockton MD Signed By:Ender Stockton MDSigned Date/Time:03/23/20 1411 DD/ 1409 Other Imaging: Radiologist's impression: [facility] [address] [place] [address] Nuclear Medicine Report Signed Patient: Melba Newman #: [id number] : 6Acct#:[id number] Age/Sex: 75 / FADM Date: 03/23/20 Loc: ERRoom/Bed: Attending Dr: Ordering Provider/Ordering MD: Janet Nelson MD, [facility] Date of Service: 03/23/20 Procedure(s): NM pul perfusion [id number] Accession Number(s): [id number] Report Number: [id number] PROCEDURE INFORMATION: Exam: NM Lung Perfusion Exam date and time: 03/23/2020 4:29 PM Age: 75 years old Clinical indication: Abnormal findings; Abnormal diagnostic tests; Elevated d-dimer; Additional info: AMS, elevated d-dimer TECHNIQUE: Imaging protocol: Nuclear pulmonary perfusion imaging was performed. Views: Perfusion acquired with multiple projections. Radiopharmaceutical: 5.5 mCi Tc-99m MAA, IV. COMPARISON: CR (CHEST, ) 03/23/2020 1:22 PM FINDINGS: Perfusion: No perfusion defect. NM/NM pul perfusion [id number] IMPRESSION: No evidence for a pulmonary artery embolus. Dictated By:Ender Stockton MD Signed By:Ender Stockton MDSigned Date/Time:03/23/201740 DD/ 39 EKG Data^: EKG 1: Attestation: I personally reviewed and interpreted this EKG as follows: EKG interpretation date: 03/23/20 EKG interpretation time: 13:38 Prior EKG tracings: not available for review Interpretation: Sinus tachycardia. Heart rate [address] changes. No STEMI EKG 2: Attestation: I personally reviewed and interpreted this EKG as follows: EKG interpretation date: 03/23/20 EKG interpretation time: 16:08 Prior EKG tracings: available for review Interpretation: Sinus tachycardia. Heart rate [address] changes. No STEMI EKG 3: Attestation: I personally reviewed and interpreted this EKG as follows: EKG interpretation date: 03/23/20 EKG interpretation time: 19:00 Prior EKG tracings: available for review Interpretation: Sinus tachycardia. Heart rate 108 bpm. No STEMI. Unchanged from earlier. 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
[2020-03-23 12:37] LABS: Basophils % 0.2 %; Eosinophils # 0.2 10^3/uL (0.0-0.8); Eosinophils % 1.8 %; Hematocrit 26.1 % (37.0-47.0); Hemoglobin 7.7 g/dL (11.5-15.3); Lymphocytes # 4.6 10^3/uL (0.8-4.8); Lymphocytes % 36.7 %; Mean Corpuscular HGB Conc 29.5 g/dL (30.0-36.0); Mean Corpuscular Hemoglobin 27.8 pg (28.0-34.0); Mean Corpuscular Volume 94.2 fL (81-99); Mean Platelet Volume 9.2 fL (7.4-10.4); Monocytes # 1.1 10^3/uL (0.2-0.9); Monocytes % 8.6 %; Neutrophils # 6.52 10^3/uL (1.8-7.7); Neutrophils % 52.1 %; Nucleated Red Blood Cells % 0 %; Platelet Count 426 10^3/cmm (130-400); Red Blood Count 2.77 10^6/uL (4.1-5.3); Red Cell Distribution Width 21.2 % (12.1-15.1); White Blood Count 12.5 10^3/uL (4.0-10.0)
[2020-03-23 12:44] LABS: INR 1.07 (0.8-1.2)
[2020-03-23 12:47] LABS: D Dimer 1.14 ug/mIFEU (0-0.59)
--- NOTE | 2020-03-23 12:53 | ECG_ITS ---
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 Measurements Intervals [place] Rate: 110 P: 53 NV: 181 QRS: -34 QRSD: 92 T: 63 QT: 339 QTc: 460 Interpretive Statements SINUS TACHYCARDIA MARKED LEFT AXIS DEVIATION [QRS AXIS < -30] LOW QRS VOLTAGE IN PRECORDIAL LEADS [QRS DEFLECTION < 1.0 mV IN CHEST LEADS] INCOMPLETE RIGHT BUNDLE BRANCH BLOCK [90+ ms QRS DURATION, TERMINAL R IN V1/V2, 40+ ms S IN I/aVL/V4/V5/V6] POSSIBLE ANTERIOR MYOCARDIAL INFARCTION [30 ms Q WAVE IN V3/V4, OR R < 0.2 mV IN V4], OF INDETERMINATE AGE Compared to ECG 01/23/2020 22:14:22 Incomplete right bundle-branch block now present Myocardial infarct finding now present Sinus rhythm no longer present T-wave abnormality no longer present Electronically Signed On 03-23-2020 17:02:38 CDT by Paxton Kong M.D. [id number]
[2020-03-23 13:12] LABS: Alanine Aminotransferase 8 U/L (0-33); Albumin Level 3.3 g/dL (3.5-5.2); Alkaline Phosphatase 158 IU/L (35-105); Anion Gap 16.4 (5-19); Aspartate Amino Transferase 27 U/L (0-32); Blood Urea Nitrogen 39 mg/dL (8-23); C Reactive Protein 3.1 mg/L (0.0-4.9); Calcium 8.8 mg/dL (8.5-10.5); Carbon Dioxide 18 mmol/L (22-29); Chloride 109 mmol/L (98-107); Ferritin 84 ng/mL (15-150); Globulin 5.4 g/dL (1.3-4.6); Glucose 59 mg/dL (65-115); Osmolality Calculated 295 mOsm/kg (285-295); Potassium 4.4 mmol/L (3.5-5.1); Sodium 139 mmol/L (136-145); Total Bilirubin 0.3 mg/dL (0.15-1.2); Total Protein 8.7 g/dL (6.6-8.7)
[2020-03-23 13:14] LABS: Fibrinogen 401 mg/dL (174-498)
[2020-03-23 13:16] LABS: Ammonia 36 umol/L (11-51); Lactic Sepsis W/Reflex 1.7 mmol/L (0.5-2.2)
[2020-03-23 13:23] LABS: SARS Covid-2 Antigen Negative (Negative)
[2020-03-23] MEDS: dextrose 50% syringe 50 mL IVP (13:32)
[2020-03-23 13:41] LABS: Troponin(5th) Baseline 23 ng/L (0-10)
[2020-03-23 14:01] LABS: Add Urine Microscopic? YES; Bilirubin Urine Neg (Negative); Blood Urine 3+ (Negative); Glucose Urine UA Norm (Normal); Ketones Urine Negative (Negative); Leukocyte Esterase Urine 2+ (Negative); Nitrate Urine Negative (Negative); Protein Urine Neg (Negative); Urine Appearance Cloudy (CLEAR); Urine Color Yellow (Yellow); Urobilinogen Urine Norm (Negative); pH Urine 5 (5-7)
[2020-03-23 14:02] LABS: RBC Urine 40-50 /hpf (0-2); Squamous Epithelial Cell Urine 0-4 /hpf (0-5); WBC Urine >100 /hpf (0-5)
[2020-03-23 14:03] LABS: Add Urine Culture? Yes; Bacteria Urine 4+ /hpf
[2020-03-23] MEDS: cefTRIAXone 1,000 MG in sodium chloride 0.9% (plus) 50 ML 100 MG IV (14:25)
[2020-03-23 14:26] LABS: Troponin 5 2HR 31.66 ng/L (0-10); Troponin 5 2HR Delta 8.66 ABS# (0-10)
--- NOTE | 2020-03-23 14:53 | ECG_ITS ---
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 Measurements Intervals [place] Rate: 102 P: 41 DE: 168 QRS: -25 QRSD: 88 T: 64 QT: 362 QTc: 474 Interpretive Statements SINUS TACHYCARDIA LOW QRS VOLTAGE IN PRECORDIAL LEADS [QRS DEFLECTION < 1.0 mV IN CHEST LEADS] POSSIBLE RIGHT VENTRICULAR CONDUCTION DELAY [RSR (QR) IN V1/V2] POSSIBLE ANTERIOR MYOCARDIAL INFARCTION [30 ms Q WAVE IN V3/V4, OR R < 0.2 mV IN V4], OF INDETERMINATE AGE WARNING: DATA QUALITY MAY AFFECT INTERPRETATION Compared to ECG 01/23/2020 22:14:22 Myocardial infarct finding now present Sinus rhythm no longer present T-wave abnormality no longer present Electronically Signed On 03-23-2020 17:03:40 CDT by Paxton Kong M.D. [email or web address]/store/[id number]
--- NOTE | 2020-03-23 15:29 | NMR_ITS ---
PROCEDURE INFORMATION: Exam: FL Lung Perfusion Exam date and time: 03/23/2020 4:29 PM Age: 75 years old Clinical indication: Abnormal findings; Abnormal diagnostic tests; Elevated d-dimer; Additional info: AMS, elevated d-dimer TECHNIQUE: Imaging protocol: Nuclear pulmonary perfusion imaging was performed. Views: Perfusion acquired with multiple projections. Radiopharmaceutical: 5.5 mCi Tc-99m MAA, IV. COMPARISON: CR (CHEST, ) 03/23/2020 1:22 PM FINDINGS: Perfusion: No perfusion defect. FL/FL pul perfusion [id number] IMPRESSION: No evidence for a pulmonary artery embolus.
[2020-03-23 18:27] LABS: Troponin 5 6HR 44.76 ng/L (0-10)
[2020-03-23 18:30] LABS: Troponin 5 6HR Delta 21.76 ng/L (0-12)
--- NOTE | 2020-03-23 18:53 | ECG_ITS ---
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 Measurements Intervals [place] Rate: 108 P: 55 NH: 160 QRS: -20 QRSD: 86 T: 76 QT: 338 QTc: 454 Interpretive Statements SINUS TACHYCARDIA LOW QRS VOLTAGE IN PRECORDIAL LEADS [QRS DEFLECTION < 1.0 mV IN CHEST LEADS] POSSIBLE RIGHT VENTRICULAR CONDUCTION DELAY [RSR (QR) IN V1/V2] NONSPECIFIC T-WAVE ABNORMALITY ABNORMAL RHYTHM ECG Compared to ECG 03/23/2020 16:08:30 T-wave abnormality now present Left-axis deviation no longer present Incomplete right bundle-branch block no longer present Myocardial infarct finding no longer present Electronically Signed On 03-24-2020 19:21:23 CDT by Paxton Kong M.D. [id number]
--- NOTE | 2020-03-23 19:10 | PC.NURSE ---
EKG done at 1910 and shown to ER doctor
--- NOTE | 2020-03-23 19:34 | PM.HP ---
Providers/Chief Complaint Primary Care Provider: Dylan Yanes Jr, MD Chief Complaint: AMS History of Present Illness Melba Newman is a 75 year old female including COPD, idiopathic liver cirrhosis, chronic kidney disease, insulin-dependent diabetes, GERD, with obstructive pyelonephritis back in November at which time had a ureteral stent placed, and this was just recently removed on 01/03, has had multiple UTIs in the past secondary to ESBL, required blood transfusion for hematuria, follows up with Dr. Alexis came in today for altered mental status. Patient is not a good historian, she is pleasantly confused while I was interviewing her in the ER. I called [facility] who endorsed that this morning she was 130s tachycardic, semi-responsive, more lethargic from her baseline, blood glucose was checked which was 71, afebrile. At baseline she has cognitive impairment, Natalie SHAH is her daughter Cristela. Patient is not sure why she is in the hospital. She is able to answer simple questions, she is oriented to herself, she is repetitive, denying dysuria, nausea, vomiting but endorsing right lower quadrant pain. When EMS arrived she had reduced responsiveness blood glucose 60s she was given dextrose which improved her blood sugar to 100, this improved her mentation as well. Diagnosis in the ER revealed sepsis secondary to UTI, she was tachycardic, positive leukocytosis, normal lactic acid, secondary to ESBL I have initiated imipenem. Review of Systems Const: Reports: chills, body aches and fatigue Eyes: Denies: change in vision ENMT: Denies: throat pain Card: Reports: dyspnea on exertion; Denies: chest pain Resp: Reports: dyspnea GI: Reports: abdominal pain and constipation; Denies: nausea, vomiting or diarrhea : Denies: flank pain Musc: Denies: neck pain Skin/Breast: Denies: rash Neuro: Reports: confusion Psych: Reports: memory loss; Denies: anxiety Endo: Denies: polyuria Man/Lymph: Denies: easy bruising All/Imm: Denies: urticaria Medications/Allergies Home Medications Medication Instructions Recorded Confirmed Last Taken Type Lantus U-100 Insulin 45 unit SUBCUT BID #10 ml 02/06/20 03/23/20 03/23/20 Rx Victoza 3-Porter 1.8 mg SUBCUT Q24H #9 ml 02/06/20 03/23/20 03/23/20 Rx Xifaxan 550 mg PO BID #60 tab 02/06/20 03/23/20 03/22/20 Rx albuterol sulfate [ProAir HFA] 2 puff INHALATION Q6H PRN #8.5 gm 02/06/20 03/23/20 Unknown Rx allopurinol 100 mg PO DAILY #30 tab 02/06/20 03/23/20 03/22/20 Rx aspirin 81 mg PO DAILY #30 tab 02/06/20 03/23/20 03/22/20 Rx duloxetine [Cymbalta] 30 mg PO BID #60 cap 02/06/20 03/23/20 03/22/20 Rx gabapentin 800 mg PO TID #90 tab 02/06/20 03/23/20 03/22/20 Rx hydrocodone-acetaminophen 1 tab PO Q8H PRN #30 tab 02/06/20 03/23/20 03/20/20 Rx lactulose 30 g PO TID #1200 ml 02/06/20 03/23/20 Unknown Rx levothyroxine 150 mcg PO DAILY #30 cap 02/06/20 03/23/20 03/22/20 Rx metoprolol tartrate 12.5 mg PO BID #30 tab 02/06/20 03/23/20 03/22/20 Rx omeprazole 20 mg PO DAILY #30 cap 02/06/20 03/23/20 03/22/20 Rx spironolactone 25 mg PO DAILY #30 tab 02/06/20 03/23/20 03/22/20 Rx alprazolam 0.25 mg tablet 0.25 mg PO BID tab 03/15/20 03/23/20 03/22/20 History bisacodyl 10 mg MS DAILY PRN 03/23/20 03/23/20 Unknown History insulin lispro [Humalog KwikPen 25 unit SUBCUT TID 03/23/20 03/23/20 03/23/20 History Insulin] 25 units magnesium hydroxide [Milk of 30 ml PO DAILY PRN 03/23/20 03/23/20 Unknown History Magnesia] risperidone [Risperdal] 0.5 mg PO BID 03/23/20 03/23/20 03/22/20 History sodium phosphates [Enema] 118 ml MS DAILY PRN 03/23/20 03/23/20 Unknown History Allergies Allergy/AdvReac Type Severity Reaction Status Date / Time celecoxib [From Celebrex] Allergy Intermediate confusion Verified 03/15/20 11:16 meperidine [From Demerol] Allergy Unknown Verified 03/15/20 11:16 theophylline Allergy Unknown Verified 03/15/20 11:16 PFSH Acute PFSH: Medical History (Updated 03/23/20 @ 20:33 by Sandeep Hope MD) Chronic kidney disease, stage III (moderate) -Baseline creatinine appears to be around 1.3-1.7 Cirrhosis of liver -Has history of idiopathic liver cirrhosis COPD (chronic obstructive pulmonary disease) -Not oxygen dependent at baseline Dementia without behavioral disturbance -Clinically appears to have advanced dementia; DM2 (diabetes mellitus, type 2) Fibromyalgia Frailty GERD (gastroesophageal reflux disease) -continue PPI Hyperammonemia Hypertension Hyponatremia Hypothyroidism Normocytic anemia -Has chronic normocytic anemia -Hematuria, history of rectal prolapse, transvaginal ultrasound recommended as well Obstructive pyelonephritis Status post ureteral stent removal Recurrent UTI Incontinent, ESBL, Klebsiella, Enterococcus faecalis, E. coli Surgical History H/O eye surgery S/P cataract extraction S/P cholecystectomy Status post carpal tunnel release of both wrists Family History Other Cancer Diabetes Heart disease Social History Smoking and tobacco status: never smoked Alcohol intake: never Marital status: / History of recent travel: No Additional social history: - Tobacco use: Denies Alcohol use: Denies Drug use: Denies Vitals/I&O/Wt Last Vital Signs Temp 97.8 F 03/23/20 11:58 Pulse 93 03/23/20 11:58 Resp 22 H 03/23/20 11:58 BP 100/40 03/23/20 11:58 Pulse Ox 100 03/23/20 12:24 Weight last 48 hrs Weight 90.718 kg Physical Exam Narrative: EXAM NARRATIVE: Obese female currently comfortable in her bed Pleasantly confused, only oriented to herself Repetitive in her answers Able to answer simple questions No neurological deficit Seems to have clinical advanced dementia EOMI, PERRLA S1, S2 sinus tachycardia, systolic murmur grade 2/6 Distended abdomen, ascites, hepatomegaly, splenomegaly, tender right lower quadrant, Bowel sounds sluggish Lower extremities no edema gangrene or ulcer Patient is wearing adult diapers Chow catheter draining cloudy urine Urinary Catheter Management^: Chow: Cath Placed During This Visit: yes Urinary Catheter Date of Insertion: 03/23/20 Urinary Catheter Time of Insertion: 13:19 Data : 03/23/20 11:49 03/23/20 11:49 Micro: Microbiology 03/23/20 12:48 Blood Culture - Preliminary Blood SPECIMEN COLLECTED 03/23/20 12:45 Blood Culture - Preliminary Blood SPECIMEN COLLECTED A&P Assessment and plan (1) Sepsis: Status: Acute (2) Hypoglycemia: Status: Acute (3) Hypersplenia: Status: Acute (4) Chronic cystitis: Status: Acute (5) Acute on chronic blood loss anemia: Status: Acute (6) Acute kidney injury superimposed on chronic kidney disease: Status: Acute Additional A&P Information Sepsis secondary to UTI History of ESBL UTIs in the past Chest x-ray unremarkable Currently Chow catheter draining cloudy urine, hematuria positive, yeast positive on urinalysis done a month ago I would use imipenem and Diflucan Blood pressure stable Judicious use of fluids considering history of liver cirrhosis Hypoglycemia with altered mental status High responsiveness has improved current glucose 59 which improved 112 Patient's Lantus dose was increased to 45 units twice a day along with other antihyperglycemic agents which I believe is a high dose for her, last A1c 9.7, caveat is in the past she had difficulty controlling her blood sugar. Would hold Lantus for now and only keep her on low-dose sliding scale CT head unremarkable Acute on chronic kidney disease Creatinine has worsened from her baseline of 1.5-1.7 Recently she had stent removal for obstructive pyelonephritis in December Avoid nephrotoxic agents, hold Spironolactone Would obtain renal ultrasound to rule out hydronephrosis, Chow catheter draining cloudy urine, she has 500 to 600 mL in the bag Chronic liver disease No acute decompensation, ammonia level normal, I would continue rifaximin and lactulose Hold Spironolactone Acute on chronic blood loss anemia Normocytic anemia Previously she has received blood transfusion for hematuria Has followed up with [employer]T SANDER TENDER who recommended transvaginal ultrasound and biopsy to rule out postmenopausal bleeding Current UA positive for hematuria Splenomegaly noted I will hold off on PRBC transfusion for now current hemoglobin 7.7, if it is less than 7 will transfuse with another unit Goals of care: Full code DVT prophylaxis: SCDs, not a candidate to be on anticoagulation because of anemia Consistent carbohydrate diet Attestations Medical Necessity Statement*: Anticipating stay in the hospital cross more than 2 midnights currently need IV antibiotics for sepsis secondary to recurrent UTI, close monitoring of H&H for blood loss anemia Time Spent in Patient Care: (>than 50% of time spent in counselling and/or direct pt care on unit). 50mins Coding Level of Care Code Acute Bottle Machine Operator for Chg Fwd Diagnoses Sepsis A41.9 Hypoglycemia E16.2 Hypersplenia D73.1 Chronic cystitis N30.20 Acute on chronic blood loss anemia D62 Acute kidney injury superimposed on chronic kidney disease N17.9; N18.9
--- NOTE | 2020-03-23 20:38 | PC.NURSE ---
PT ARRIVED FROM ED TO ROOM 111-1. PT UNWILLING TO HELP TRANSFER TO BED. PT REFUSES TO ANSWER QUESTIONS AT THIS TIME. PT C/O 8/10 PAIN IN THE BELLY, BUT CAN NOT DESCRIBE IF IT IS PHYSICAL PAIN OR UPSET. PT IS VERY CONFUSED. VS BP 149/69, T 98.5A, HR 106, RR 20, SPO2 98% RA. PT ORIENTATED TO ROOM WITH CALL LIGHT IN REACH. BED ALARM SET. PT DENIES ANY WANTS OR COMPLAINTS AT THIS TIME. WILL CONTINUE TO MONITOR.
[2020-03-23 21:34] LABS: Glucose Point of Care 206 mg/dL (70-110)
[2020-03-23] MEDS: lactulose oral liq 20 gm/30 mL UDC 30 GM PO (22:35)
[2020-03-23] MEDS: heparin 5,000 unit/mL INJ 1 mL 5000 UNIT SUBCUT (22:36)
[2020-03-24] VITALS (14 sets, daily range): BP systolic 121–152; BP diastolic 48–80; PULSE 87–116; RESP 15–24; TEMP 36.8–37.7; O2SAT 93–95
--- NOTE | 2020-03-24 00:16 | PC.NURSE ---
DR VAN DIDN'T WANT D5 GIVEN UNLESS BLOOD SUGAR WAS LESS THAN 180. BLOOD SUGAR WAS 208 4 UNITS OF NOVOLOG WAS GIVEN PER ORDERS.
--- NOTE | 2020-03-24 01:59 | PC.PHAR ---
RENAL DOSING FOR PRIMAXIN, DECREASED TO 250 MG Q6H BASED ON CRCL OF 28
[2020-03-24 04:08] LABS: Basophils % 0.1 %; Eosinophils # 0.1 10^3/uL (0.0-0.8); Eosinophils % 1.9 %; Hematocrit 24.2 % (37.0-47.0); Hemoglobin 7.1 g/dL (11.5-15.3); Lymphocytes # 2.4 10^3/uL (0.8-4.8); Lymphocytes % 32.1 %; Mean Corpuscular HGB Conc 29.3 g/dL (30.0-36.0); Mean Corpuscular Hemoglobin 28.3 pg (28.0-34.0); Mean Corpuscular Volume 96.4 fL (81-99); Mean Platelet Volume 9.2 fL (7.4-10.4); Monocytes # 0.7 10^3/uL (0.2-0.9); Monocytes % 8.9 %; Neutrophils # 4.15 10^3/uL (1.8-7.7); Neutrophils % 56.6 %; Nucleated Red Blood Cells % 0 %; Platelet Count 367 10^3/cmm (130-400); Red Blood Count 2.51 10^6/uL (4.1-5.3); Red Cell Distribution Width 21.5 % (12.1-15.1); White Blood Count 7.3 10^3/uL (4.0-10.0)
[2020-03-24 04:38] LABS: Alanine Aminotransferase 7 U/L (0-33); Alkaline Phosphatase 159 IU/L (35-105); Anion Gap 13.4 (5-19); Aspartate Amino Transferase 23 U/L (0-32); Blood Urea Nitrogen 33 mg/dL (8-23); Carbon Dioxide 19 mmol/L (22-29); Chloride 111 mmol/L (98-107); Globulin 5.1 g/dL (1.3-4.6); Glucose 142 mg/dL (65-115); Osmolality Calculated 298 mOsm/kg (285-295); Potassium 4.4 mmol/L (3.5-5.1); Sodium 139 mmol/L (136-145); Total Bilirubin 0.4 mg/dL (0.15-1.2); Total Protein 8.1 g/dL (6.6-8.7)
[2020-03-24] MEDS: heparin 5,000 unit/mL INJ 1 mL 5000 UNIT SUBCUT ×3 (04:58→21:37)
--- NOTE | 2020-03-24 06:15 | PC.NURSE ---
PT PULLED OUT IV. CATHETER TIP STILL INTACT. SPOT FACER NURSE PUT IN NEW IV. PT REPOSITIONED IN BED. PT DOESN'T HELP AT ALL IN REPOSITIONING. PT DENIES PAIN. PT IS STILL CONFUSED. WILL CONTINUE TO MONITOR.
[2020-03-24 06:27] LABS: Glucose Point of Care 148 mg/dL (70-110)
--- NOTE | 2020-03-24 08:20 | PC.NURSE ---
Pt rounding Pt is alert, awake, oriented. Denies any pain or discomfort at this time. Passed some gas. Chow cath intact with cloudy yellow urine. Bed alarm reset. call light in reach.
--- NOTE | 2020-03-24 08:30 | PC.NURSE ---
cool copmress applied to armpits face and forehead for pt's Temp-99.9 Axillary route
[2020-03-24] MEDS: metoprolol tartrate 25 mg Tablet 12.5 MG PO ×2 (08:48→17:18)
[2020-03-24] MEDS: levothyroxine 150 mcg Tablet PO (08:48)
[2020-03-24] MEDS: allopurinol 100 mg Tablet PO (08:48)
[2020-03-24] MEDS: fluconazole 100 mg Tablet PO (08:48)
[2020-03-24] MEDS: risperiDONE 1 mg Tablet 0.5 MG PO ×2 (08:48→21:36)
[2020-03-24] MEDS: pantoprazole DR 40 mg Tablet PO (08:48)
[2020-03-24] MEDS: lactulose oral liq 20 gm/30 mL UDC 30 GM PO ×2 (08:49→16:11)
[2020-03-24 11:09] LABS: Glucose Point of Care 182 mg/dL (70-110)
--- NOTE | 2020-03-24 14:00 | PC.NURSE ---
Blood transfusion informed consent Explain to pt that she will need a blood transfusion and has to sign the infomed consent. Pt is wakes up but then fall back to sleep,lethargic and obtunded. Unable to sign the consent form so 2 RN called Dghenrique Henson via phone to discuss to her blood transfusion and synagogue practices that may affect the transfusion. She verbally consent us to give blood with 2 RN via phone.
[2020-03-24 16:13] LABS: Glucose Point of Care 247 mg/dL (70-110)
--- NOTE | 2020-03-24 16:22 | PC.NURSE ---
Pt is more awake now Pt is eating ice chips at this time. denies any pain.
--- NOTE | 2020-03-24 16:23 | PM.PN ---
Subjective Subjective: Interval history: Patient is still drowsy. Not responding appropriately. Blood sugar has stabilized. Dextrose drip has been discontinued.She is getting 1 unit PRBC transfusion as well as her hemoglobin is: 7.1. We will continue to monitor CBC. Vitals and labs have been reviewed. Vitals/I&O/Wt Last Vital Signs Temp 98.6 F 03/24/20 14:40 Pulse 94 03/24/20 14:40 Resp 20 H 03/24/20 14:40 BP 139/68 03/24/20 14:40 Pulse Ox 95 03/24/20 14:40 03/24/20 03/24/20 03/24/20 06:59 14:59 22:59 Intake Total 200 / 320 218 / 218 Output Total 1600 / 1600 Balance -1400 / -1280 218 / 218 Weight last 48 hrs Weight 91.308 kg Weight 90.718 kg Physical Exam Narrative: EXAM NARRATIVE: Currently oriented to self. HENMT: COMMON NORMALS: normocephalic and atraumatic HEAD & SCALP: normocephalic and atraumatic Eye: COMMON NORMALS: no scleral icterus GENERAL EYE: appearance normal, both eyes and all related structures Resp: COMMON NORMALS: normal respiratory effort, No retractions, No use of accessory muscles and clear to auscultation bilaterally EFFORT & INSPECTION: Yes symmetric chest movement AUSCULTATION: clear to auscultation bilaterally Cardio: COMMON NORMALS: regular rate, regular rhythm, S1 normal heart sound present, S2 normal heart sound present, No gallops present (Cardio), No murmurs present (Cardio), No rub (Cardio) and Peripheral pulses 2+ throughout RATE: regular rate RHYTHM: regular rhythm HEART SOUNDS: S1 normal heart sound present and S2 normal heart sound present PERIPHERAL PULSES: Peripheral pulses 2+ throughout GI: COMMON NORMALS: Normal to inspection, nondistended, normoactive bowel sounds present, Soft to palpation, non-tender, No hepatosplenomegaly present and no masses AUSCULTATION: Yes normoactive bowel sounds PALPATION: Yes Soft to palpation and Yes No hepatosplenomegaly present RECTAL EXAM: deferred : COMMON NORMALS: Yes no CVA tenderness BLADDER/KIDNEY EXAM: Yes no CVA tenderness Back/Pelvis: COMMON NORMALS: no CVA tenderness Extremity: COMMON NORMALS: no clubbing, cyanosis or edema and no pedal edema Urinary Catheter Management^: Chow: Cath Placed During This Visit: yes Urinary Catheter Date of Insertion: 03/23/20 Urinary Catheter Time of Insertion: 13:19 Data : 03/24/20 03:49 03/24/20 03:49 Micro: Microbiology 03/23/20 12:48 Blood Culture - Preliminary Blood NEGATIVE TO DATE 03/23/20 12:45 Blood Culture - Preliminary Blood NEGATIVE TO DATE 03/23/20 12:57 Urine Culture - Preliminary Urine,Clean Catch Gram Negative Rods A&P Assessment and plan (1) Sepsis: Sepsis secondary to UTI History of ESBL UTIs in the past Chest x-ray unremarkable On admission Chow catheter was draining cloudy urine, hematuria positive, yeast positive on urinalysis done a month ago. Urine has cleared up. Currently on Primaxin and Diflucan. Urine culture is growing gram-negative rasheed Vitals stable. Status: Acute (2) Hypoglycemia: Hypoglycemia with altered mental status.Currently hypoglycemia has resolved. Dextrose drip has been discontinued. Patient's Lantus dose was increased to 45 units twice a day along with other antihyperglycemic agents which likely contributed to the hypoglycemia. Her, last A1c 9.7. Lantus on hold for now low-dose sliding scale CT head unremarkable. Status: Acute (3) Hypersplenia: Status: Acute (4) Chronic cystitis: Status: Acute (5) Acute on chronic blood loss anemia: Current hemoglobin is 7.1. No hematuria noted, no acute GI blood loss. Will order FOBT. Current plan is to transfuse 1 unit PRBC. Continue to monitor CBC. Status: Acute (6) Acute kidney injury superimposed on chronic kidney disease: ANNITA has resolved. Currently patient is at baseline serum creatinine. Status: Acute Additional A&P Information Goals of care: Full code DVT prophylaxis: SCDs, not a candidate to be on anticoagulation because of anemia Consistent carbohydrate diet Attestations Medical Necessity Statement*: Needs to be in hospital for the management of AMS secondary to UTI. Coding Level of Care Code Acute Aircraft Lay Out Worker for [facility] Fwd Exam Detailed Diagnoses Sepsis A41.9 Hypoglycemia E16.2 Hypersplenia D73.1 Chronic cystitis N30.20 Acute on chronic blood loss anemia D62 Acute kidney injury superimposed on chronic kidney disease N17.9; N18.9
[2020-03-24 21:02] LABS: Glucose Point of Care 365 mg/dL (70-110)
--- NOTE | 2020-03-24 23:44 | PC.NURSE ---
ASSUMED CARE AT SHIFT CHANGE. REPORT RECEIVED FROM OFF GOING NURSE. PT IS RESTING IN BED. PT HAS HAD 6 COPIOUS BOWEL MOVEMENTS. HELD LACTULOSE PER DR INSTRUCTION. PT IS STILL CONFUSED AND REFUSES TO ANSWER MOST QUESTIONS. WILL CONTINUE TO MONITOR.
[2020-03-25] VITALS (7 sets, daily range): BP systolic 128–173; BP diastolic 48–80; PULSE 88–95; RESP 17–25; TEMP 36.2–37; O2SAT 93–98
[2020-03-25] MEDS: heparin 5,000 unit/mL INJ 1 mL 5000 UNIT SUBCUT ×2 (05:09→12:47)
--- NOTE | 2020-03-25 06:22 | PC.NURSE ---
PT HAS HAD SEVERAL COPIOUS BM. PT IS CONFUSED AND WAS THROWING ICE AND TISSUES OUT THE DOOR FOR ATTENTION. PT IS ORIENTATED TO SELF ONLY. PT WAS TURNED AND REPOSITIONED. WILL GIVE REPORT TO ON COMING NURSE.
[2020-03-25 06:31] LABS: Glucose Point of Care 180 mg/dL (70-110)
[2020-03-25] MEDS: pantoprazole DR 40 mg Tablet PO (08:35)
[2020-03-25] MEDS: metoprolol tartrate 25 mg Tablet 12.5 MG PO ×2 (08:35→17:31)
[2020-03-25] MEDS: fluconazole 100 mg Tablet PO (08:35)
[2020-03-25] MEDS: risperiDONE 1 mg Tablet 0.5 MG PO ×2 (08:35→17:31)
[2020-03-25] MEDS: allopurinol 100 mg Tablet PO (08:35)
[2020-03-25] MEDS: lactulose oral liq 20 gm/30 mL UDC 30 GM PO ×2 (08:35→15:35)
[2020-03-25] MEDS: levothyroxine 150 mcg Tablet PO (08:36)
[2020-03-25 09:17] LABS: Basophils % 0.1 %; Eosinophils # 0.2 10^3/uL (0.0-0.8); Eosinophils % 2.7 %; Hematocrit 26.6 % (37.0-47.0); Hemoglobin 7.8 g/dL (11.5-15.3); Lymphocytes # 2.7 10^3/uL (0.8-4.8); Lymphocytes % 34.1 %; Mean Corpuscular HGB Conc 29.3 g/dL (30.0-36.0); Mean Corpuscular Hemoglobin 26.8 pg (28.0-34.0); Mean Corpuscular Volume 91.4 fL (81-99); Mean Platelet Volume 9.2 fL (7.4-10.4); Monocytes # 0.7 10^3/uL (0.2-0.9); Monocytes % 8.7 %; Neutrophils # 4.18 10^3/uL (1.8-7.7); Neutrophils % 53.6 %; Nucleated Red Blood Cells % 0 %; Platelet Count 335 10^3/cmm (130-400); Red Blood Count 2.91 10^6/uL (4.1-5.3); Red Cell Distribution Width 24.8 % (12.1-15.1); White Blood Count 7.8 10^3/uL (4.0-10.0)
--- NOTE | 2020-03-25 09:39 | US_ITS ---
WS: [id number] RENAL ULTRASOUND URINARY BLADDER ULTRASOUND HISTORY: check for hydronephrosis COMPARISON: None available. TECHNIQUE: 2-D and color Doppler imaging of the kidney submitted. Right kidney: 10.7 cm x 5.2 cm x 4.8 cm. Normal echogenicity with no hydronephrosis or mass. Left kidney: 9.5 cm x 4.4 cm x 4.8 cm. Normal echogenicity with no hydronephrosis or mass. Aorta: Normal. Urinary Bladder: Chow catheter in the urinary bladder. No distention of the urinary bladder. No free fluid. US/US renal BI with bladder IMPRESSION: Normal renal ultrasound. No hydronephrosis. Nondistended urinary bladder.
[2020-03-25 11:41] LABS: Glucose Point of Care 393 mg/dL (70-110)
--- NOTE | 2020-03-25 13:33 | P.PN_ITS ---
Subjective Subjective: Interval history: Melba awakens easily. History and physical reviewed. Patient herself has no complaints. Medications: Reviewed: Yes Vitals/I&O/Wt Last Vital Signs Temp 98.6 F 03/25/20 12:00 Pulse 89 03/25/20 12:00 Resp 17 03/25/20 12:00 BP 173/80 03/25/20 12:00 Pulse Ox 98 03/25/20 12:00 03/24/20 03/25/20 03/25/20 22:59 06:59 14:59 Intake Total 1000 / 1318 600 / 1918 720 / 720 Output Total 1700 / 1700 1800 / 3500 750 / 750 Balance -700 / -382 -1200 / -1582 -30 / -30 Weight last 48 hrs Weight 92.669 kg Weight 91.308 kg Physical Exam Narrative: EXAM NARRATIVE: General exam is no apparent distress Cardiovascular regular rate and rhythm without murmur Lungs clear Abdomen is soft with positive bowel sounds Extremities no cyanosis clubbing or edema Urinary Catheter Management^: Chow: Cath Placed During This Visit: yes Urinary Catheter Date of Insertion: 03/23/20 Urinary Catheter Time of Insertion: 13:19 Data : 03/25/20 09:08 03/24/20 03:49 Micro: Microbiology 03/23/20 12:57 Urine Culture - Preliminary Urine,Clean Catch Gram Negative Rods 03/23/20 12:48 Blood Culture - Preliminary Blood NEGATIVE TO DATE 03/23/20 12:45 Blood Culture - Preliminary Blood NEGATIVE TO DATE A&P Assessment and plan (1) Sepsis: Sepsis secondary to UTI History of ESBL UTIs in the past Awaiting culture. Currently on Primaxin, fluconazole. Chest x-ray did not show pneumonia Note that she has chronic indwelling Chow catheter Previous history of ureteral obstruction. Check renal ultrasound Status: Acute (2) Hypoglycemia: Hypoglycemic on admission. Currently this is resolved. Continue sliding scale insulin Status: Acute (3) Hypersplenia: Status: Acute (4) Chronic cystitis: Status: Acute (5) Acute on chronic blood loss anemia: Hemoglobin 7.1 on admission. Awaiting fecal Hemoccult. Transfused 1 unit packed red blood cells and hemoglobin today is 7.8. Repeat hemoglobin tomorrow Hold on anticoagulation. Aspirin discontinued. Status: Acute (6) Acute kidney injury superimposed on chronic kidney disease: Resolved as of yesterday's labs Status: Acute Additional A&P Information Type 2 diabetes. Continue sliding scale insulin History of cirrhosis and hepatic encephalopathy. Ammonia level normal on admission. Continue lactulose and rifaximin Dementia, with behaviors. Full code SCDs for DVT prophylaxis secondary to anemia Attestations Medical Necessity Statement*: Needs continued hospitalization for IV antibiotics, pending urine culture as well as close follow-up with hemoglobin. Coding Level of Care Code Acute Shipyard Painter Helper for Chg Fwd Diagnoses Sepsis A41.9 Hypoglycemia E16.2 Hypersplenia D73.1 Chronic cystitis N30.20 Acute on chronic blood loss anemia D62 Acute kidney injury superimposed on chronic kidney disease N17.9; N18.9
[2020-03-25 15:46] LABS: Glucose Point of Care 407 mg/dL (70-110)
[2020-03-25 20:27] LABS: Glucose Point of Care 296 mg/dL (70-110)
--- NOTE | 2020-03-25 22:18 | PC.NURSE ---
Patient refused her Lactlose but did take her insulin.
[2020-03-26] VITALS (9 sets, daily range): BP systolic 122–143; BP diastolic 52–79; PULSE 75–92; RESP 16–37; TEMP 35.7–36.8; O2SAT 94–97
--- NOTE | 2020-03-26 04:59 | PC.NURSE ---
End of shift: Patient has rested off and on this shift. Patient has been cooperative with care. Patient vitals remain stable and patient denies pain.
[2020-03-26 05:04] LABS: Basophils % 0.3 %; Eosinophils # 0.2 10^3/uL (0.0-0.8); Eosinophils % 2.4 %; Hematocrit 25.6 % (37.0-47.0); Hemoglobin 7.7 g/dL (11.5-15.3); Lymphocytes # 2.7 10^3/uL (0.8-4.8); Lymphocytes % 35.6 %; Mean Corpuscular HGB Conc 30.1 g/dL (30.0-36.0); Mean Corpuscular Hemoglobin 27.1 pg (28.0-34.0); Mean Corpuscular Volume 90.1 fL (81-99); Mean Platelet Volume 9.1 fL (7.4-10.4); Monocytes # 0.6 10^3/uL (0.2-0.9); Neutrophils % 53.2 %; Nucleated Red Blood Cells % 0 %; Platelet Count 336 10^3/cmm (130-400); Red Blood Count 2.84 10^6/uL (4.1-5.3); Red Cell Distribution Width 23.5 % (12.1-15.1); White Blood Count 7.5 10^3/uL (4.0-10.0)
[2020-03-26 05:29] LABS: Alanine Aminotransferase 7 U/L (0-33); Albumin Level 2.8 g/dL (3.5-5.2); Alkaline Phosphatase 144 IU/L (35-105); Anion Gap 16.2 (5-19); Aspartate Amino Transferase 21 U/L (0-32); Blood Urea Nitrogen 26 mg/dL (8-23); Calcium 9.4 mg/dL (8.5-10.5); Carbon Dioxide 17 mmol/L (22-29); Chloride 104 mmol/L (98-107); Globulin 5.1 g/dL (1.3-4.6); Glucose 175 mg/dL (65-115); Osmolality Calculated 285 mOsm/kg (285-295); Potassium 4.2 mmol/L (3.5-5.1); Sodium 133 mmol/L (136-145); Total Bilirubin 0.6 mg/dL (0.15-1.2); Total Protein 7.9 g/dL (6.6-8.7)
[2020-03-26 06:45] LABS: Glucose Point of Care 195 mg/dL (70-110)
[2020-03-26] MEDS: allopurinol 100 mg Tablet PO (08:48)
[2020-03-26] MEDS: metoprolol tartrate 25 mg Tablet 12.5 MG PO ×2 (08:49→17:45)
[2020-03-26] MEDS: lactulose oral liq 20 gm/30 mL UDC 30 GM PO ×2 (08:49→21:35)
[2020-03-26] MEDS: risperiDONE 1 mg Tablet 0.5 MG PO ×2 (08:50→17:44)
[2020-03-26] MEDS: pantoprazole DR 40 mg Tablet PO (09:01)
[2020-03-26] MEDS: levothyroxine 150 mcg Tablet PO (09:01)
[2020-03-26] MEDS: fluconazole 100 mg Tablet PO (09:01)
--- NOTE | 2020-03-26 09:15 | PC.SOCIAL ---
IMM completed 03/26/2020 @ 0855. Copy of rights given to pt.
--- NOTE | 2020-03-26 11:01 | P.PN_ITS ---
Subjective Subjective: Interval history: Melba is alert. She denies any complaints. Medications: Reviewed: Yes Vitals/I&O/Wt Last Vital Signs Temp 96.3 F L 03/26/20 08:00 Pulse 85 03/26/20 08:00 Resp 19 H 03/26/20 08:00 BP 138/79 03/26/20 08:00 Pulse Ox 95 03/26/20 04:00 03/25/20 03/26/20 03/26/20 22:59 06:59 14:59 Intake Total 418 / 1238 300 / 1538 120 / 120 Output Total 1200 / 1950 1100 / 3050 Balance -782 / -712 -800 / -1512 120 / 120 Weight last 48 hrs Weight 90.718 kg Weight 92.669 kg Physical Exam Narrative: EXAM NARRATIVE: General exam is no apparent distress Cardiovascular regular rate and rhythm without murmur Lungs clear Abdomen is soft with positive bowel sounds Extremities no cyanosis clubbing or edema Urinary Catheter Management^: Chow: Cath Placed During This Visit: yes Reason for Continuing Indwelling Catheter: Acute Urinary Retention or Obstruction Urinary Catheter Date of Insertion: 03/23/20 Urinary Catheter Time of Insertion: 13:19 Data : 03/26/20 04:15 03/26/20 04:15 Micro: Microbiology 03/23/20 12:57 Urine Culture - Preliminary Urine,Clean Catch Gram Negative Rods A&P Assessment and plan (1) Sepsis: Sepsis secondary to UTI History of ESBL UTIs in the past Awaiting culture. Currently on Primaxin, fluconazole. Chest x-ray did not show pneumonia Note that she has chronic indwelling Chow catheter Previous history of ureteral obstruction. Renal ultrasound shows no obstruction on this admission. I have talked with microbiology and hopefully her ID and sensitivity will be available tomorrow. Blood cultures negative to date. Status: Acute (2) Hypoglycemia: Hypoglycemic on admission. Currently this is resolved. Continue sliding scale insulin Status: Acute (3) Hypersplenia: Status: Acute (4) Chronic cystitis: Status: Acute (5) Acute on chronic blood loss anemia: Hemoglobin stable today. Still awaiting Hemoccult. Antiplatelet and a nticoagulation were held. Transfused 1 unit packed red blood cells and hemoglobin today is 7.8. Status: Acute (6) Acute kidney injury superimposed on chronic kidney disease: Resolved as of yesterday's labs Status: Acute Additional A&P Information Type 2 diabetes. Continue sliding scale insulin History of cirrhosis and hepatic encephalopathy. Ammonia level normal on admission. Continue lactulose and rifaximin Dementia, with behaviors. Full code SCDs for DVT prophylaxis secondary to anemia Attestations Medical Necessity Statement*: Needs continued hospitalization for IV antibiotics pending identification and sensitivity of organism in urine which caused sepsis. Coding Level of Care Code Acute Security System Administrator for Chg Fwd Diagnoses Sepsis A41.9 Hypoglycemia E16.2 Hypersplenia D73.1 Chronic cystitis N30.20 Acute on chronic blood loss anemia D62 Acute kidney injury superimposed on chronic kidney disease N17.9; N18.9
[2020-03-26 11:39] LABS: Glucose Point of Care 395 mg/dL (70-110)
--- NOTE | 2020-03-26 13:00 | PC.NURSE ---
pt refused to take medication.
[2020-03-26 17:09] LABS: Glucose Point of Care 271 mg/dL (70-110)
[2020-03-26 20:54] LABS: Glucose Point of Care 245 mg/dL (70-110)
--- NOTE | 2020-03-26 23:03 | PC.NURSE ---
Called Dr. Sangita senaing Patient positive occult blood in stool. No orders received.
[2020-03-27] VITALS (7 sets, daily range): BP systolic 114–151; BP diastolic 56–75; PULSE 86–96; RESP 14–20; TEMP 36.4–36.8; O2SAT 92–96
[2020-03-27 05:03] LABS: Basophils % 0.1 %; Eosinophils # 0.2 10^3/uL (0.0-0.8); Eosinophils % 2.1 %; Hematocrit 25.5 % (37.0-47.0); Hemoglobin 7.7 g/dL (11.5-15.3); Lymphocytes # 2.3 10^3/uL (0.8-4.8); Lymphocytes % 31.8 %; Mean Corpuscular HGB Conc 30.2 g/dL (30.0-36.0); Mean Corpuscular Volume 89.5 fL (81-99); Mean Platelet Volume 9.4 fL (7.4-10.4); Monocytes # 0.6 10^3/uL (0.2-0.9); Monocytes % 7.6 %; Neutrophils # 4.15 10^3/uL (1.8-7.7); Neutrophils % 57.8 %; Nucleated Red Blood Cells % 0 %; Platelet Count 363 10^3/cmm (130-400); Red Blood Count 2.85 10^6/uL (4.1-5.3); Red Cell Distribution Width 22.6 % (12.1-15.1); White Blood Count 7.2 10^3/uL (4.0-10.0)
[2020-03-27 05:28] LABS: Anion Gap 15.1 (5-19); Blood Urea Nitrogen 27 mg/dL (8-23); Carbon Dioxide 18 mmol/L (22-29); Chloride 104 mmol/L (98-107); Glucose 212 mg/dL (65-115); Osmolality Calculated 287 mOsm/kg (285-295); Potassium 4.1 mmol/L (3.5-5.1); Sodium 133 mmol/L (136-145)
--- NOTE | 2020-03-27 06:25 | PC.NURSE ---
Patient refused morning accucheck due to it hurting. Will pass on to dayshift.
[2020-03-27 07:05] LABS: Glucose Point of Care 215 mg/dL (70-110)
[2020-03-27] MEDS: allopurinol 100 mg Tablet PO (08:34)
[2020-03-27] MEDS: levothyroxine 150 mcg Tablet PO (08:34)
[2020-03-27] MEDS: metoprolol tartrate 25 mg Tablet 12.5 MG PO ×2 (08:34→18:29)
[2020-03-27] MEDS: pantoprazole DR 40 mg Tablet PO (08:34)
[2020-03-27] MEDS: risperiDONE 1 mg Tablet 0.5 MG PO ×2 (08:34→18:29)
[2020-03-27] MEDS: lactulose oral liq 20 gm/30 mL UDC 30 GM PO (08:35)
[2020-03-27] MEDS: fluconazole 100 mg Tablet PO (10:11)
--- NOTE | 2020-03-27 10:35 | PC.SOCIAL ---
IMM completed 03/27/2020 @ 1030. Copy of rights given to pt.
--- NOTE | 2020-03-27 11:11 | P.DS_ITS ---
Discharge Providers Date of Admission: 03/23/20 18:44 Date of Discharge: March 27, 2020 Attending Provider at Admission: Ramón Santamaria MD Attending Provider at Discharge: Jay Washington MD Primary Care Provider: Dylan Yanes Jr, MD Diagnoses at Discharge Discharge Diagnosis (1) Sepsis: Status: Acute (2) Hypoglycemia: Status: Acute (3) Hypersplenia: Status: Acute (4) Chronic cystitis: Status: Acute (5) Acute on chronic blood loss anemia: Status: Acute (6) Acute kidney injury superimposed on chronic kidney disease: Status: Acute Reason for Visit Reason for Visit: AMS Hospital Course Hospital Course: Melba is a 75-year-old white female with history of cirrhosis that presented to the hospital on March 19. At that point she was more lethargic than usual, and had a low blood sugar. She was brought to the em ergency department, and there was concern for UTI, sepsis, hypoglycemia. A Chow was placed. The patient was started on imipenem secondary to history of ESBL in the past. Insulin products were initially held. With this treatment, patient slowly improved as far as her lethargy on admission. While in the hospital she did receive 1 unit of packed red blood cells for hemoglobin of 7.1. Eventually a stool Hemoccult was done which was faintly positive. Following the transfusion the patient's hemoglobin remained stable during her hospital stay. She also had no fevers, hypotension, or leukocytosis. By March 27, patient was confused which is her baseline but not lethargic. She had no hypoglycemia. Her urine culture had grown ESBL, that was sensitive to Augmentin, Macrobid, Bactrim, and tetracycline. She had already received 5 days of Primaxin. She will be discharged on doxycycline for 5 more days of treatment. Chow catheter will be removed upon discharge. Follow-up with kassidy dia will be obtained. Physical Exam Narrative: EXAM NARRATIVE: General exam no apparent distress Cardiovascular regular rate and rhythm without murmur Lungs clear Abdomen is soft, positive bowel sounds Extremities no cyanosis clubbing or edema Urinary Catheter Management^: Chow: Cath Placed During This Visit: yes Reason for Continuing Indwelling Catheter: Acute Urinary Retention or Obstruction Urinary Catheter Date of Insertion: 03/23/20 Urinary Catheter Time of Insertion: 13:19 Discharge Data Data Completed and Pending: Completed Studies During Hospitalization Category Date Time Status CT head wo con* 7 0450 Urgent Cat Scan 03/23/20 12:27 Completed XR chest 1V sarina ble 07107 Stat Exams 03/23/20 12:20 Completed NM pul perfusion [id number] Stat Nuc Med 03/23/20 15:29 Completed US renal BI with bladder Routine Ultrasound 03/25/20 09:39 Completed Pending at discharge Category Date Time Status Blood Culture Sta t Lab 03/23/20 12:48 Results Labs from last 24 hours 03/27/20 03/27/20 03/27/20 06:53 04:40 04:40 WBC 7.2 RBC 2.85 L Hgb 7.7 L Hct 25.5 L MCV 89.5 MCH 27.0 L MCHC 30.2 RDW 22.6 H Plt Count 363 MPV 9.4 Neut % (Auto) 57.8 Lymph % (Auto) 31.8 [place] % (Auto) 7.6 Eos % (Auto) 2.1 Baso % (Auto) 0.1 Neut # (Auto) 4.15 Lymph # (Auto) 2.3 [place] # (Auto) 0.6 Eos # (Auto) 0.2 Baso # (Auto) 0.0 Nucleated RBC % (a uto) 0 Nucleated RBCs # 0.0 Sodium 133 L Potassium 4.1 Chloride 104 Carbon Dioxide 18 L Anion Gap 15.1 BUN 27 H Creatinine 1.2 H GFR Calculation Not Reportable Glucose 212 H POC Glucose 215 Calculated Osmolal ity 287 Calcium 9.0 03/26/20 03/26/20 03/26/20 20:37 16:52 11:35 WBC RBC Hgb Hct MCV MCH MCHC RDW Plt Count MPV Neut % (Auto) Lymph % (Auto) [place] % (Auto) Eos % (Auto) Baso % (Auto) Neut # (Auto) Lymph # (Auto) [place] # (Auto) Eos # (Auto) Baso # (Auto) Nucleated RBC % (a uto) Nucleated RBCs # Sodium Potassium Chloride Carbon Dioxide Anion Gap BUN Creatinine GFR Calculation Glucose POC Glucose 245 271 395 Calculated Osmolal ity Calcium Vitals: Last Vital Signs Temp 97.9 F 03/27/20 07:28 Pulse 92 03/27/20 09:20 Resp 16 03/27/20 09:20 BP 149/72 03/27/20 07:28 Pulse Ox 95 03/27/20 09:20 Discharge Plan Discharge Patient Disposition: [facility] Condition: Stable Prescriptions: New doxycycline hyclate 100 mg capsule 100 mg PO BID 5 Days Qty: 10 RF: 0 Continued alprazolam [Xanax] 0.25 mg tablet 0.25 mg PO BID RF: 0 Milk of Magnesia 400 mg/5 mL Suspension 30 ml PO DAILY PRN (Reason: Constipation) RF: 0 bisacodyl 10 mg Suppository 10 mg AK DAILY PRN (Reason: Constipation) RF: 0 Enema 19-7 gram/118 mL Enema 118 ml AK DAILY PRN (Reason: Constipation) RF: 0 Risperdal 0.5 mg Tablet 0.5 mg PO BID RF: 0 hydrocodone-acetaminophen 5-325 mg tablet 1 tab PO Q8H PRN (Reason: pain) Qty: 30 RF: 0 allopurinol 100 mg tablet 100 mg PO DAILY Qty: 30 RF: 3 omeprazole 20 mg capsule,delayed release(DR/EC) 20 mg PO DAILY Qty: 30 RF: 0 albuterol sulfate [ProAir HFA] 90 mcg/actuation HFA aerosol inhaler 2 puff INHALATION Q6H PRN (Reason: shortness of breath) Qty: 8.5 RF: 3 metoprolol tartrate 25 mg tablet 12.5 mg PO BID Qty: 30 RF: 0 duloxetine [Cymbalta] 30 mg Capsule,Delayed Release(Dr/Ec) 30 mg PO BID Qty: 60 RF: 0 levothyroxine 150 mcg capsule 150 mcg PO DAILY Qty: 30 RF: 0 Xifaxan 550 MG 550 mg PO BID Qty: 60 RF: 0 Victoza 3-Proter 0.6 mg/0.1 mL (18 mg/3 mL) pen injector 1.8 mg SUBCUT Q24H Qty: 9 RF: 0 lactulose 20 gram/30 mL solution 30 g PO TID Qty: 1200 RF: 0 Changed Lantus U-100 Insulin 100 unit/mL solution 20 unit SUBCUT BID Qty: 10 RF: 0 Humalog KwikPen Insulin 100 unit/mL insulin pen 10 unit SUBCUT TID Qty: 0 RF: 0 Discontinued aspirin 81 mg tablet,delayed release (DR/EC) 81 mg PO DAILY Qty: 30 RF: 0 spironolactone 25 mg tablet 25 mg PO DAILY Qty: 30 RF: 0 gabapentin 800 mg tablet 800 mg PO TID Qty: 90 RF: 0 Discharge Orders: Discharge Order (Routine); Ordered 03/27/20 Ordered By: Jay Washington Referrals: Luis Cardoso MD [Physician] - 2 weeks (history of recurrent UTI) Discharge Diet: Diabetic Activity Restrictions/Additional Instructions: Take all medicine as prescribed Follow-up with primary care provider at longterm facility within the next 3 to 5 days, with CBC and BMP Discharge Attestations Time Spent in Discharge Care*: greater than 30 min Status at Discharge: Cognitive status at discharge: moderately impaired cognition , Behavioral status at discharge: cooperative and can be unco operative , Quality Metrics Clinical Quality Measures During this hospital stay, did patient experience: None Coding Level of Care Code Acute [employer]mat 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
[2020-03-27 11:22] LABS: Glucose Point of Care 383 mg/dL (70-110)
[2020-03-27 16:17] LABS: Glucose Point of Care 401 mg/dL (70-110)
[2020-03-27 20:49] LABS: Glucose Point of Care 362 mg/dL (70-110)
[2020-03-28] VITALS: BP 162/69; PULSE 87; RESP 26; TEMP 36.5; O2SAT 95
[2020-03-28 04:00] VITALS: BP 130/64; PULSE 86; RESP 25; TEMP 36.7; O2SAT 94
--- NOTE | 2020-03-28 06:05 | PC.NURSE ---
End of shift: Patient has not slept this evening. Patient remains cooperative with care. vitals are stable at this time.
[2020-03-28 07:17] VITALS: BP 141/63; PULSE 83; RESP 24; TEMP 36.7; O2SAT 95
[2020-03-28 07:51] LABS: Glucose Point of Care 286 mg/dL (70-110)
--- NOTE | 2020-03-28 08:00 | PC.NURSE ---
pt refused to take morning medication after redirecting and multiple attempts. will continue to monitor. call light within reach.
--- NOTE | 2020-03-28 09:06 | PC.SOCIAL ---
IMM completed on 03/28/2020 @ 0900. Copy of rights given to pt.
[2020-03-28 09:41] VITALS: PULSE 94; RESP 16; O2SAT 94
[2020-03-28 11:06] VITALS: BP 117/69; PULSE 94; RESP 12; TEMP 36.6; O2SAT 94
[2020-03-28 11:14] LABS: Glucose Point of Care 417 mg/dL (70-110)
--- NOTE | 2020-03-28 12:00 | PC.NURSE ---
pt refused to eat lunch. she just wanted to be left alone. will continue to monitor. call light within reach.
[2020-03-28 12:55] VITALS: BP 117/69; PULSE 94; RESP 12; TEMP 36.6; O2SAT 94
--- NOTE | 2020-03-28 12:57 | PC.NURSE ---
pt unable to comprehend, report and discharge given to nurse at [facility].
--- NOTE | 2020-03-28 13:31 | PC.NURSE ---
report called to [facility] to set up transportation. discharge instructions given to nurse. will continue to monitor, call light within reach.
--- NOTE | 2020-03-28 13:44 | P.PN_ITS ---
Subjective Subjective: Interval history: No changes overnight. Could not be transferred yesterday secondary to insurance approval. Medications: Reviewed: Yes Vitals/I&O/Wt Last Vital Signs Temp 97.9 F 03/28/20 12:55 Pulse 94 03/28/20 12:55 Resp 12 03/28/20 12:55 BP 117/69 03/28/20 12:55 Pulse Ox 94 03/28/20 12:55 03/27/20 03/28/20 03/28/20 22:59 06:59 14:59 Intake Total 460 / 800 340 / 1140 360 / 360 Output Total 1400 / 1400 Balance 460 / 800 -1060 / -260 360 / 360 Weight last 48 hrs Weight 92.986 kg Physical Exam Narrative: EXAM NARRATIVE: General exam no apparent distress Cardiovascular regular rate and rhythm without murmur Lungs clear Abdomen is soft, positive bowel sounds Extremities no cyanosis clubbing or edema Urinary Catheter Management^: Chwo: Cath Placed During This Visit: yes, but has since been removed by the nurse Reason for Continuing Indwelling Catheter: Decision to DC Catheter Urinary Catheter Date of Insertion: 03/23/20 Urinary Catheter Time of Insertion: 13:19 Date Urinary Catheter Removed: 03/28/20 Time Urinary Catheter Discontinued: 08:00 Data : 03/27/20 04:40 03/27/20 04:40 Micro: Microbiology 03/23/20 12:48 Blood Culture - Final Blood NO GROWTH AFTER 5 DAYS 03/23/20 12:45 Blood Culture - Final Blood NO GROWTH AFTER 5 DAYS 03/23/20 12:57 Urine Culture - Final Urine,Clean Catch Escherichia coli esbl A&P Assessment and plan (1) Sepsis: Sepsis secondary to UTI History of ESBL UTIs in the past Culture demonstrated ESBL, sensitive to doxycycline. She will discharge on this today Chest x-ray did not show pneumonia Previous history of ureteral obstruction. Renal ultrasound shows no obstruction on this admission. Blood cultures negative to date. Status: Acute (2) Hypoglycemia: Hypoglycemic on admission. Currently this is resolved. Continue sliding scale insulin Status: Acute (3) Hypersplenia: Status: Acute (4) Chronic cystitis: Status: Acute (5) Acute on chronic blood loss anemia: Hemoglobin stable today. Was Hemoccult positive. Could consider ev aluation at later date. Antiplatelet and anticoagulation were held. Transfused 1 unit packed red blood cells and hemoglobin today is 7.8. Status: Acute (6) Acute kidney injury superimposed on chronic kidney disease: Resolved as of yesterday's labs Status: Acute Additional A&P Information Type 2 diabetes. Continue sliding scale insulin History of cirrhosis and hepatic encephalopathy. Ammonia level normal on admission. Continue lactulose and rifaximin Dementia, with behaviors. 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
--- NOTE | 2020-03-28 14:33 | PC.NURSE ---
transportation arrived. pt transferred to stretcher. packet given to transport. iv removed at this time tip intact.
== END 2020-03-28 14:00 | disposition skilled nursing facility (03) | DRG 872 ==
LOC: ER 12:30 → CSU 19:38
PROVIDERS: Family Medicine; Internal Medicine; Admitting Provider Internal Medicine; PCP Family Medicine; Visit Provider Internal Medicine
DX: A41.9 Sepsis, unspecified organism (principal); D62 Acute posthemorrhagic anemia; D63.1 Anemia in chronic kidney disease; J44.9 Chronic obstructive pulmonary disease, unspecified; K74.60 Unspecified cirrhosis of liver; E11.22 Type 2 diabetes mellitus with diabetic chronic kidney disease; I12.9 Hypertensive chronic kidney disease with stage 1 through stage 4 chronic kidney disease, or unspecified chronic kidney disease; N18.3 Chronic kidney disease, stage 3 (moderate); E11.649 Type 2 diabetes mellitus with hypoglycemia without coma; Z79.4 Long term (current) use of insulin; K21.9 Gastro-esophageal reflux disease without esophagitis; Z87.440 Personal history of urinary (tract) infections; B96.20 Unspecified Escherichia coli [E. coli] as the cause of diseases classified elsewhere; F03.90 Unspecified dementia, unspecified severity, without behavioral disturbance, psychotic disturbance, mood disturbance, and anxiety; M79.7 Fibromyalgia; E03.9 Hypothyroidism, unspecified; D73.1 Hypersplenism; Z96.0 Presence of urogenital implants; N30.20 Other chronic cystitis without hematuria
CPT/HCPCS: 12345; 36415; 36416; 36430; 51702; 70450; 71045; 76770; 76857; 78580; 80048; 80053; 81001; 82140; 82274; 82728; 82962; 83605; 84145; 84484; 85025; 85378; 85384; 85610; 86140; 86850; 86900; 86920; 87040; 87077; 87086; 87186; 87426; 93005; 96372; 96375; 97162; 97530; 99283; A9540; J0696; J0743; J1644; J1815; P9040

== ENCOUNTER 2020-04-07 17:43 | Inpatient (IN) | payer MEDICARE, MEDICAID, SELFPAY ==
[2020-04-07 17:47] VITALS: BP 110/35; PULSE 99; RESP 26; TEMP 38.1; O2SAT 97; BMI 33.3
--- NOTE | 2020-04-07 17:53 | XRR_ITS ---
PROCEDURE INFORMATION: Exam: XR Chest, 1 View Exam date and time: 04/07/2020 5:56 PM Age: 75 years old Clinical indication: Fever and shortness of breath; Additional info: Covid TECHNIQUE: Imaging protocol: XR of the chest Views: 1 view. COMPARISON: CR (CHEST, ) 03/23/2020 1:22 PM FINDINGS: Lungs: Right basilar opacity is noted which may be atelectasis or pneumonia. Bilateral upper lobe interstitial and faint ground-glass opacities are noted. Pleural space: A small right pleural effusion is noted. Heart/Mediastinum: Unremarkable. No cardiomegaly. Bones/joints: Unremarkable. XR/XR chest 1V portable [id number] IMPRESSION: 1. Right basilar atelectasis versus consolidation/pneumonia. 2. Biapical interstitial and ground-glass opacities may be secondary to atypical/viral pulmonary infection. 3. Small right pleural effusion
[2020-04-07 17:55] VITALS: O2SAT 93
[2020-04-07 18:22] LABS: Basophils % 0.1 %; Eosinophils # 0.1 10^3/uL (0.0-0.8); Eosinophils % 1.2 %; Hematocrit 28.4 % (37.0-47.0); Hemoglobin 8.5 g/dL (11.5-15.3); Lymphocytes % 30.2 %; Mean Corpuscular HGB Conc 29.9 g/dL (30.0-36.0); Mean Corpuscular Volume 90.2 fL (81-99); Mean Platelet Volume 9.8 fL (7.4-10.4); Monocytes # 1.6 10^3/uL (0.2-0.9); Monocytes % 16.1 %; Neutrophils # 5.12 10^3/uL (1.8-7.7); Neutrophils % 51.7 %; Nucleated Red Blood Cells % 0 %; Platelet Count 341 10^3/cmm (130-400); Red Blood Count 3.15 10^6/uL (4.1-5.3); Red Cell Distribution Width 21.5 % (12.1-15.1); White Blood Count 9.9 10^3/uL (4.0-10.0)
[2020-04-07 18:27] LABS: ABG PCO2 40.1 mmHg (35-45); ABG PH Result 7.39 (7.35-7.45); Base Excess ABG -0.8 mmol/L (-2.0-2.0); Blood Gas Allen Test Pos; Blood Gas Operator Identificat MONRO; Blood Gas Sample Site Radial, left; Blood Gas Sample Type Arterial; HCO3 ABG 24.1 mmol/L (22-26); Oxygen Device NC; PO2 ABG 63.2 mmHg (80.0-100.0)
[2020-04-07 18:36] LABS: Fibrinogen 466 mg/dL (174-498); INR 1.17 (0.8-1.2)
[2020-04-07 18:38] LABS: D Dimer 1.14 ug/mIFEU (0-0.59)
[2020-04-07 18:49] LABS: NT Pro B Type Natriuretic Pept 356 pg/mL (0-125); Procalcitonin 0.14 ng/mL (0-0.5)
[2020-04-07 18:51] LABS: Ammonia 57 umol/L (11-51)
[2020-04-07 19:01] LABS: Alanine Aminotransferase 7 U/L (0-33); Albumin Level 3.1 g/dL (3.5-5.2); Alkaline Phosphatase 129 IU/L (35-105); Anion Gap 13.5 (5-19); Aspartate Amino Transferase 32 U/L (0-32); Blood Urea Nitrogen 33 mg/dL (8-23); C Reactive Protein 50.5 mg/L (0.0-4.9); Calcium 8.6 mg/dL (8.5-10.5); Carbon Dioxide 22 mmol/L (22-29); Chloride 100 mmol/L (98-107); Ferritin 115 ng/mL (15-150); Globulin 5.4 g/dL (1.3-4.6); Glucose 192 mg/dL (65-115); Lactate Dehydrogenase 182 U/L (135-214); Magnesium 1.7 mg/dL (1.7-2.3); Osmolality Calculated 284 mOsm/kg (285-295); Potassium 4.5 mmol/L (3.5-5.1); Sodium 131 mmol/L (136-145); Total Bilirubin 0.4 mg/dL (0.15-1.2); Total Protein 8.5 g/dL (6.6-8.7)
--- NOTE | 2020-04-07 19:11 | W.ED.GENADLT ---
HPI - General Adult General: Chief complaint: Shortness of Breath/Dyspnea Stated complaint: COVID POS; FEVER; HEMATURIA Time Seen by Provider: 04/07/20 17:44 History of Present Illness: HPI narrative: This patient is a 75-year-old female who [facility]. She has a positive COVID diagnosis. I am not sure exactly when her symptoms started or when the positive test was. The only when I see listed on her [facility] paperwork was from March 28. She was sent over today because of blood in the urine and fever. She has been on oxygen. She also has a history of cirrhosis and has had elevated ammonia leading to altered mental status in the past. On arrival she is not really able to provide any history. She has a decreased GCS. She is febrile. Her temp was 100 axillary. Onset (ago): unknown Review of Systems General: Reports: ROS unobtainable due to mental status [facility] PFSH: Medical History (Updated 04/11/20 @ 00:00 by ) Chronic kidney disease, stage III (moderate) -Baseline creatinine appears to be around 1.3-1.7 Cirrhosis of liver -Has history of idiopathic liver cirrhosis COPD (chronic obstructive pulmonary disease) -Not oxygen dependent at baseline Dementia without behavioral disturbance -Clinically appears to have advanced dementia; DM2 (diabetes mellitus, type 2) Fibromyalgia Frailty GERD (gastroesophageal reflux disease) -continue PPI Hyperammonemia Hypertension Hyponatremia Hypothyroidism Normocytic anemia -Has chronic normocytic anemia -Hematuria, history of rectal prolapse, transvaginal ultrasound recommended as well Obstructive pyelonephritis Status post ureteral stent removal Recurrent UTI Incontinent, ESBL, Klebsiella, Enterococcus faecalis, E. coli Surgical History H/O eye surgery S/P cataract extraction S/P cholecystectomy Status post carpal tunnel release of both wrists Family History Other Cancer Diabetes Heart disease Social History Smoking and tobacco status: never smoked Alcohol intake: never Marital status: / History of recent travel: No Additional social history: - Tobacco use: Denies Alcohol use: Denies Drug use: Denies Physical Exam Const: GENERAL APPEARANCE: lethargic NUTRITIONAL APPEARANCE: obese ORIENTATION/CONSCIOUSNESS: Yes lethargic HENMT: HEAD & SCALP: normal to inspection FACE & SINUS: normal facial exam Eye: GENERAL EYE: appearance normal, both eyes and all related structures Neck/C-Spine: COMMON NORMALS: supple, no meningeal signs and no JVD Chest: COMMONS NORMALS: normal inspection of the chest Resp: COMMON NORMALS: normal respiratory effort, No use of accessory muscles and clear to auscultation bilaterally AUSCULTATION: clear to auscultation bilaterally Cardio: COMMON NORMALS: no JVD, regular rate, regular rhythm and No murmurs present (Cardio) RATE: regular rate RHYTHM: regular rhythm GI: COMMON NORMALS: Normal to inspection, nondistended, normoactive bowel sounds present, Soft to palpation and non-tender INSPECTION: Yes normal to inspection AUSCULTATION: Yes normoactive bowel sounds PALPATION: Yes Soft to palpation Back/Pelvis: COMMON NORMALS: thoracic and lumbar spine normal to inspection Extremity: COMMON NORMALS: normal to inspection Neuro: [place] COMA SCALE: document GCS findings [place] coma scale eye opening: None [place] coma scale verbal response: None [place] coma scale motor response: Localising [place] coma scale total score: 7 SENSORIUM/ORIENTATION: Yes lethargic MENINGEAL SIGNS: Yes no meningeal signs Psych: COMMON NORMALS: mental status grossly normal, cooperative and normal affect Skin: COMMON NORMALS: no rashes or lesions noted and turgor normal GENERAL SKIN EXAM: no rashes or lesions noted and turgor normal Course ED course: This patient was sent from the [facility] with a known Covid positive test. She has an oxygen requirement. She is also reportedly having blood in the urine. Her mental state is poor but I am not quite sure what her baseline is. Will admit for further treatment in the hospital. Vital Signs: Vital signs: Vital Signs Temperature 98.1 F 04/10/20 14:36 Pulse Rate 91 04/10/20 14:36 Respiratory Rate 31 H 04/10/20 14:36 Blood Pressure 134/67 04/10/20 14:36 Pulse Oximetry 95 04/10/20 14:36 MDM - General Adult Lab Data: Labs: Lab Results 04/07/20 04/07/20 04/07/20 Range/Units 18:00 18:00 18:00 WBC (4.0-10.0) 10^3/ uL RBC (4.1-5.3) 10^6/u L Hgb (11.5-15.3) g/dL Hct (37.0-47.0) % MCV (81-99) fL MCH (28.0-34.0) pg MCHC (30.0-36.0) g/dL RDW (12.1-15.1) % Plt Count (130-400) 10^3/c mm MPV (7.4-10.4) fL Neut % (Auto) % Lymph % (Auto) % [place] % (Auto) % Eos % (Auto) % Baso % (Auto) % Neut # (Auto) (1.8-7.7) 10^3/u L Lymph # (Auto) (0.8-4.8) 10^3/u L [place] # (Auto) (0.2-0.9) 10^3/u L Eos # (Auto) (0.0-0.8) 10^3/u L Baso # (Auto) (0.0-0.1) 10^3/u L Nucleated RBC % (a uto) % Nucleated RBCs # /100WBC PT 15.30 H (12.1-14.9) SECO NDS INR 1.17 (0.8-1.2) Fibrinogen 466 (174-498) mg/dL D-Dimer 1.14 H (0-0.59) ug/mIFE U Specimen Type Sample Site ABG pH (7.35-7.45) ABG pCO2 (35-45) mmHg ABG pO2 (80.0-100.0) mmH g ABG HCO3 (22-26) mmol/L ABG Base Excess (-2.0-2.0) mmol/ L Manoj Test Hematocrit (37-47) % O2 Delivery Device O2 Liters/Min % FiO2 % Photographer Aerial ID Sodium 131 L (136-145) mmol/L Potassium 4.5 (3.5-5.1) mmol/L Chloride 100 (98-107) mmol/L Carbon Dioxide 22 (22-29) mmol/L Anion Gap 13.5 (5-19) BUN 33 H (8-23) mg/dL Creatinine 1.5 H (0.5-0.9) mg/dL GFR Calculation Not Reportable Glucose 192 H (65-115) mg/dL Calculated Osmolal ity 284 L (285-295) mOsm/k g Lactic Acid (0.5-2.2) mmol/L Calcium 8.6 (8.5-10.5) mg/dL Magnesium 1.7 (1.7-2.3) mg/dL Iron (37-145) ug/dL Ferritin 115 (15-150) ng/mL Total Bilirubin 0.4 (0.15-1.2) mg/dL AST 32 (0-32) U/L ALT 7 (0-33) U/L Alkaline Phosphata se 129 H (35-105) IU/L Ammonia 57 H (11-51) umol/L Lactate Dehydrogen ase 182 (135-214) U/L C-Reactive Protein 50.5 H (0.0-4.9) mg/L NT-Pro-B Natriuret Pep 356 H (0-125) pg/mL Total Protein 8.5 (6.6-8.7) g/dL Albumin 3.1 L (3.5-5.2) g/dL Globulin 5.4 H (1.3-4.6) g/dL Folate (4.8-37.3) ng/mL Procalcitonin 0.14 (0-0.5) ng/mL TSH (0.27-4.20) uIU/ mL Urine Color (Yellow) Urine Appearance (CLEAR) Urine pH (5-7) Ur Specific Gravit y (1.005-1.030) Urine Protein (Negative) Urine Glucose (UA) (Normal) Urine Ketones (Negative) Urine Blood (Negative) Urine Nitrate (Negative) Urine Bilirubin (Negative) Urine Urobilinogen (Negative) mg/dL Ur Leukocyte Roxie ase (Negative) Urine RBC (0-2) /hpf Urine WBC (0-5) /hpf Ur Squamous Epith Cells (0-5) /hpf Amorphous Sediment Urine Bacteria (NONE) /hpf 04/07/20 04/07/20 04/07/20 Range/Units 18:00 18:00 18:00 WBC 9.9 (4.0-10.0) 10^3/ uL RBC 3.15 L (4.1-5.3) 10^6/u L Hgb 8.5 L (11.5-15.3) g/dL Hct 28.4 L (37.0-47.0) % MCV 90.2 (81-99) fL MCH 27.0 L (28.0-34.0) pg MCHC 29.9 L (30.0-36.0) g/dL RDW 21.5 H (12.1-15.1) % Plt Count 341 (130-400) 10^3/c mm MPV 9.8 (7.4-10.4) fL Neut % (Auto) 51.7 % Lymph % (Auto) 30.2 % [place] % (Auto) 16.1 % Eos % (Auto) 1.2 % Baso % (Auto) 0.1 % Neut # (Auto) 5.12 (1.8-7.7) 10^3/u L Lymph # (Auto) 3.0 (0.8-4.8) 10^3/u L [place] # (Auto) 1.6 H (0.2-0.9) 10^3/u L Eos # (Auto) 0.1 (0.0-0.8) 10^3/u L Baso # (Auto) 0.0 (0.0-0.1) 10^3/u L Nucleated RBC % (a uto) 0 % Nucleated RBCs # 0.0 /100WBC PT (12.1-14.9) SECO NDS INR (0.8-1.2) Fibrinogen (174-498) mg/dL D-Dimer (0-0.59) ug/mIFE U Specimen Type Sample Site ABG pH (7.35-7.45) ABG pCO2 (35-45) mmHg ABG pO2 (80.0-100.0) mmH g ABG HCO3 (22-26) mmol/L ABG Base Excess (-2.0-2.0) mmol/ L Manoj Test Hematocrit (37-47) % O2 Delivery Device O2 Liters/Min % FiO2 % Photographer Aerial ID Sodium (136-145) mmol/L Potassium (3.5-5.1) mmol/L Chloride (98-107) mmol/L Carbon Dioxide (22-29) mmol/L Anion Gap (5-19) BUN (8-23) mg/dL Creatinine (0.5-0.9) mg/dL GFR Calculation Glucose (65-115) mg/dL Calculated Osmolal ity (285-295) mOsm/k g Lactic Acid 1.0 (0.5-2.2) mmol/L Calcium (8.5-10.5) mg/dL Magnesium (1.7-2.3) mg/dL Iron 21 L (37-145) ug/dL Ferritin (15-150) ng/mL Total Bilirubin (0.15-1.2) mg/dL AST (0-32) U/L ALT (0-33) U/L Alkaline Phosphata se (35-105) IU/L Ammonia (11-51) umol/L Lactate Dehydrogen ase (135-214) U/L C-Reactive Protein (0.0-4.9) mg/L NT-Pro-B Natriuret Pep (0-125) pg/mL Total Protein (6.6-8.7) g/dL Albumin (3.5-5.2) g/dL Globulin (1.3-4.6) g/dL Folate (4.8-37.3) ng/mL Procalcitonin (0-0.5) ng/mL TSH 0.81 (0.27-4.20) uIU/ mL Urine Color (Yellow) Urine Appearance (CLEAR) Urine pH (5-7) Ur Specific Gravit y (1.005-1.030) Urine Protein (Negative) Urine Glucose (UA) (Normal) Urine Ketones (Negative) Urine Blood (Negative) Urine Nitrate (Negative) Urine Bilirubin (Negative) Urine Urobilinogen (Negative) mg/dL Ur Leukocyte Roxie ase (Negative) Urine RBC (0-2) /hpf Urine WBC (0-5) /hpf Ur Squamous Epith Cells (0-5) /hpf Amorphous Sediment Urine Bacteria (NONE) /hpf 04/07/20 04/07/20 04/07/20 Range/Units 18:00 18:10 18:13 WBC (4.0-10.0) 10^3/ uL RBC (4.1-5.3) 10^6/u L Hgb (11.5-15.3) g/dL Hct (37.0-47.0) % MCV (81-99) fL MCH (28.0-34.0) pg MCHC (30.0-36.0) g/dL RDW (12.1-15.1) % Plt Count (130-400) 10^3/c mm MPV (7.4-10.4) fL Neut % (Auto) % Lymph % (Auto) % [place] % (Auto) % Eos % (Auto) % Baso % (Auto) % Neut # (Auto) (1.8-7.7) 10^3/u L Lymph # (Auto) (0.8-4.8) 10^3/u L [place] # (Auto) (0.2-0.9) 10^3/u L Eos # (Auto) (0.0-0.8) 10^3/u L Baso # (Auto) (0.0-0.1) 10^3/u L Nucleated RBC % (a uto) % Nucleated RBCs # /100WBC PT (12.1-14.9) SECO NDS INR (0.8-1.2) Fibrinogen (174-498) mg/dL D-Dimer (0-0.59) ug/mIFE U Specimen Type Arterial Sample Site Radial, left ABG pH 7.39 (7.35-7.45) ABG pCO2 40.1 (35-45) mmHg ABG pO2 63.2 L (80.0-100.0) mmH g ABG HCO3 24.1 (22-26) mmol/L ABG Base Excess -0.8 (-2.0-2.0) mmol/ L Manoj Test Pos Hematocrit 27.0 L (37-47) % O2 Delivery Device Nc O2 Liters/Min 3.0 % FiO2 32.0 % Photographer Aerial ID [place] Sodium (136-145) mmol/L Potassium (3.5-5.1) mmol/L Chloride (98-107) mmol/L Carbon Dioxide (22-29) mmol/L Anion Gap (5-19) BUN (8-23) mg/dL Creatinine (0.5-0.9) mg/dL GFR Calculation Glucose (65-115) mg/dL Calculated Osmolal ity (285-295) mOsm/k g Lactic Acid (0.5-2.2) mmol/L Calcium (8.5-10.5) mg/dL Magnesium (1.7-2.3) mg/dL Iron (37-145) ug/dL Ferritin (15-150) ng/mL Total Bilirubin (0.15-1.2) mg/dL AST (0-32) U/L ALT (0-33) U/L Alkaline Phosphata se (35-105) IU/L Ammonia (11-51) umol/L Lactate Dehydrogen ase (135-214) U/L C-Reactive Protein (0.0-4.9) mg/L NT-Pro-B Natriuret Pep (0-125) pg/mL Total Protein (6.6-8.7) g/dL Albumin (3.5-5.2) g/dL Globulin (1.3-4.6) g/dL Folate 15.9 (4.8-37.3) ng/mL Procalcitonin (0-0.5) ng/mL TSH (0.27-4.20) uIU/ mL Urine Color Yellow (Yellow) Urine Appearance Sl cloudy A (CLEAR) Urine pH 5 (5-7) Ur Specific Gravit y 1.010 (1.005-1.030) Urine Protein 2+ H (Negative) Urine Glucose (UA) 1+ (Normal) Urine Ketones Negative (Negative) Urine Blood 3+ H (Negative) Urine Nitrate Positive H (Negative) Urine Bilirubin Neg (Negative) Urine Urobilinogen Norm (Negative) mg/dL Ur Leukocyte Roxie ase Trace H (Negative) Urine RBC Too numerous to c nt H (0-2) /hpf Urine WBC 10-15 H (0-5) /hpf Ur Squamous Epith Cells 0-4 H (0-5) /hpf Amorphous Sediment Not Reportable Urine Bacteria 3+ H (NONE) /hpf Discharge Plan Discharge Patient Disposition: Admitted As Inpatient Admit Provider: Godfrey Cook Condition: Fair Referrals: [facility] [place] [Outside] Discharge Diet: Usual diet Discharge Activity: Increase activity as tolerated Additional Instructions: She is DNR. She is do not rehospitalized. These are instructions per daughter. If worsening, change to complete comfort measures. May continue to use oxygen 2 L per nasal cannula, titrate for sat greater than or equal to 92% Discharge Date/Time: 04/07/20 23:30 Coding Level of Care Code ED Facilities And Grounds Director for Chg Fwd Exam Comprehensive
[2020-04-07 19:53] LABS: Add Urine Microscopic? YES; Bilirubin Urine Neg (Negative); Blood Urine 3+ (Negative); Glucose Urine UA 1+ (Normal); Ketones Urine Negative (Negative); Leukocyte Esterase Urine Trace (Negative); Nitrate Urine Positive (Negative); Protein Urine 2+ (Negative); Urine Color Yellow (Yellow); Urobilinogen Urine Norm (Negative); pH Urine 5 (5-7)
[2020-04-07 19:59] LABS: Add Urine Culture? Yes; Bacteria Urine 3+ /hpf; RBC Urine TOO NUMEROUS TO CNT /hpf (0-2); Squamous Epithelial Cell Urine 0-4 /hpf (0-5)
[2020-04-07 20:20] VITALS: BP 116/43; PULSE 95; RESP 25; O2SAT 92
[2020-04-07 21:30] VITALS: BP 120/64; PULSE 94; RESP 26; O2SAT 94
[2020-04-07 22:00] VITALS: BP 127/60; PULSE 94; RESP 25; O2SAT 96
[2020-04-07 23:00] VITALS: BP 111/63; PULSE 95; RESP 28; O2SAT 94
[2020-04-08] VITALS (25 sets, daily range): BP systolic 102–150; BP diastolic 42–81; PULSE 70–102; RESP 10–28; TEMP 36.8–37.4; O2SAT 91–97
--- NOTE | 2020-04-08 00:13 | CTR_ITS ---
PROCEDURE INFORMATION: Exam: CT Angiography Chest With Contrast Exam date and time: 04/08/2020 12:26 AM Age: 75 years old Clinical indication: Shortness of breath; Patient HX: Covid+ w SOB; Additional info: Covid positive, R/O pe TECHNIQUE: Imaging protocol: Computed tomographic angiography of the chest with intravenous contrast. 3D rendering (Not supervised by radiologist): MIP and/or 3D reconstructed images were created by the technologist. Radiation optimization: All CT scans at this facility use at least one of these dose optimization techniques: automated exposure control; mA and/or kV adjustment per patient size (includes targeted exams where dose is matched to clinical indication); or iterative reconstruction. Contrast material: VISI 320; Contrast volume: 71 ml; Contrast route: INTRAVENOUS (IV); COMPARISON: CR (CHEST, ) 04/07/2020 6:12 PM RADIATION DOSE METRICS: Total DLP (mGy-cm): 534.46 FINDINGS: Pulmonary arteries: Mixing artifact is seen in the pulmonary artery. No definite pulmonary embolus is detected. Aorta: Unremarkable. No aortic aneurysm. No aortic dissection. Lungs: Small airspace opacities are seen in the right upper lobe and lingula. Bibasilar atelectasis is noted. The right hemidiaphragm is mildly elevated. Pleural space: Unremarkable. No pneumothorax. No pleural effusion. Heart: The heart is normal in size. Lymph nodes: Unremarkable. No enlarged lymph nodes. Bones/joints: Unremarkable. No acute fracture. Soft tissues: Unremarkable. CT/CT angio chest PE protcl [id number] IMPRESSION: 1. No pulmonary embolus is visualized. 2. Small airspace opacities in the right upper lobe and lingula may represent pneumonia. Bibasilar atelectasis is appreciated. Radiation Dose CTDIVOL = (mGy): DLP = 534.46 (mGy-cm)
--- NOTE | 2020-04-08 00:14 | PM.HP ---
Providers/Chief Complaint Admitting Physician: Godfrey Cook MD Primary Care Provider: Dylan Yanes Jr, MD Chief Complaint: COVID POS; FEVER; HEMATURIA History of Present Illness Melba Newman is a 75 year old female with a past medical history of hypothyroidism, hypertension, insulin-dependent type 2 diabetes mellitus, gout, recurrent ESBL UTIs, chronic kidney disease, idiopathic liver cirrhosis on Xifaxan and lactulose, GERD, obstructive uropathy with UTI and sepsis with stent placement in December, recent hospital discharge on 03/27/2020 for ESBL E. coli UTI and sepsis who presents to [facility] from [facility], due to concerns for stroke increased oxygen requirements, shortness of breath, lethargic, concerns for UTI, confusion. Patient is a resident of [facility], normally she is alert oriented x3, she is a two-person assist, she answers most questions appropriately. According to halfway staff, this evening patient was having increased episodes of confusion, just was not acting appropriately, was using up to 3 L nasal cannula, normally uses only oxygen as needed, has not used oxygen in a long time, looks much more lethargic, short of breath, urine looked dark with concerns for urinary tract infection, so patient was brought to [facility] for further evaluation. Patient tested positive for COVID-19 on April 06. Currently patient is alert oriented x1, cannot give me a detailed history, she does follow commands as a squeezing my fingers, wiggling her toes, does not know why she is here, has no complaints. Review of Systems General: Reports: ROS unobtainable due to medical condition Const: Reports: fever(s); Denies: fatigue or malaise Resp: Denies: dyspnea GI: Denies: diarrhea Medications/Allergies Home Medications Medication Instructions Recorded Confirmed Last Taken Type Victoza 3-Porter 1.8 mg SUBCUT Q24H #9 ml 02/06/20 03/23/20 03/23/20 Rx Xifaxan 550 mg PO BID #60 tab 02/06/20 03/23/20 03/22/20 Rx albuterol sulfate [ProAir HFA] 2 puff INHALATION Q6H PRN #8.5 gm 02/06/20 03/23/20 Unknown Rx allopurinol 100 mg PO DAILY #30 tab 02/06/20 03/23/20 03/22/20 Rx duloxetine [Cymbalta] 30 mg PO BID #60 cap 02/06/20 03/23/20 03/22/20 Rx hydrocodone-acetaminophen 1 tab PO Q8H PRN #30 tab 02/06/20 03/23/20 03/20/20 Rx lactulose 30 g PO TID #1200 ml 02/06/20 03/23/20 Unknown Rx levothyroxine 150 mcg PO DAILY #30 cap 02/06/20 03/23/20 03/22/20 Rx metoprolol tartrate 12.5 mg PO BID #30 tab 02/06/20 03/23/20 03/22/20 Rx omeprazole 20 mg PO DAILY #30 cap 02/06/20 03/23/20 03/22/20 Rx alprazolam 0.25 mg tablet 0.25 mg PO BID tab 03/15/20 03/23/20 03/22/20 History Enema 118 ml WV DAILY PRN 03/23/20 03/23/20 Unknown History Milk of Magnesia 30 ml PO DAILY PRN 03/23/20 03/23/20 Unknown History Risperdal 0.5 mg PO BID 03/23/20 03/23/20 03/22/20 History bisacodyl 10 mg W[place] DAILY PRN 03/23/20 03/23/20 Unknown History Humalog KwikPen Insulin 10 unit SUBCUT TID #0 ml 03/27/20 03/23/20 03/23/20 Rx 25 units Lantus U-100 Insulin 20 unit SUBCUT BID #10 ml 03/27/20 03/23/20 03/23/20 Rx Allergies Allergy/AdvReac Type Severity Reaction Status Date / Time celecoxib [From Celebrex] Allergy Intermediate confusion Verified 03/15/20 11:16 meperidine [From Demerol] Allergy Unknown Verified 03/15/20 11:16 theophylline Allergy Unknown Verified 03/15/20 11:16 PFSH Acute PFSH: Medical History Chronic kidney disease, stage III (moderate) -Baseline creatinine appears to be around 1.3-1.7 Cirrhosis of liver -Has history of idiopathic liver cirrhosis COPD (chronic obstructive pulmonary disease) -Not oxygen dependent at baseline Dementia without behavioral disturbance -Clinically appears to have advanced dementia; DM2 (diabetes mellitus, type 2) Fibromyalgia Frailty GERD (gastroesophageal reflux disease) -continue PPI Hyperammonemia Hypertension Hyponatremia Hypothyroidism Normocytic anemia -Has chronic normocytic anemia -Hematuria, history of rectal prolapse, transvaginal ultrasound recommended as well Obstructive pyelonephritis Status post ureteral stent removal Recurrent UTI Incontinent, ESBL, Klebsiella, Enterococcus faecalis, E. coli Surgical History H/O eye surgery S/P cataract extraction S/P cholecystectomy Status post carpal tunnel release of both wrists Family History Other Cancer Diabetes Heart disease Social History Smoking and tobacco status: never smoked Alcohol intake: never Marital status: / History of recent travel: No Additional social history: - Tobacco use: Denies Alcohol use: Denies Drug use: Denies Vitals/I&O/Wt Last Vital Signs Temp 100.6 F H 04/07/20 17:47 Pulse 99 04/07/20 17:47 Resp 26 H 04/07/20 17:47 BP 110/35 04/07/20 17:47 Pulse Ox 93 04/07/20 17:55 Weight last 48 hrs Weight 90.718 kg Physical Exam Const: COMMON NORMALS: no acute distress GENERAL APPEARANCE: cooperative and comfortable HENMT: COMMON NORMALS: normocephalic HEAD & SCALP: normocephalic Eye: COMMON NORMALS: Equal, round and reactive pupils present and EOMs intact bilaterally GENERAL EYE: appearance normal, both eyes and all related structures PUPIL: Yes Equal, round and reactive pupils present Neck/C-Spine: COMMON NORMALS: full ROM, no lymphadenopathy, no JVD and Thyroid normal THYROID: Thyroid normal Lymph: LYMPHATIC: no lymphadenopathy noted Resp: COMMON NORMALS: normal respiratory effort, No retractions and No use of accessory muscles AUSCULTATION: wheezes Cardio: COMMON NORMALS: no JVD, regular rate, regular rhythm, S1 normal heart sound present, S2 normal heart sound present, No gallops present (Cardio), No clicks present (Cardio) and No murmurs present (Cardio) RATE: regular rate RHYTHM: regular rhythm HEART SOUNDS: S1 normal heart sound present and S2 normal heart sound present GI: COMMON NORMALS: Normal to inspection, nondistended, normoactive bowel sounds present, Soft to palpation, non-tender and No hepatosplenomegaly present PALPATION: Yes Soft to palpation and Yes No hepatosplenomegaly present Extremity: COMMON NORMALS: normal to inspection, full ROM and no pedal edema Neuro: OTHER: Can follow some commands such as wiggling her toes, squeezing my fingers, but is alert oriented x1 Urinary Catheter Management^: Chow: Cath Placed During This Visit: yes Reason for Continuing Indwelling Catheter: Acute Urinary Retention or Obstruction Urinary Catheter Date of Insertion: 04/07/20 Urinary Catheter Time of Insertion: 18:10 Sepsis: Is patient septic: Yes Focused sepsis exam performed: Yes Date exam was performed: 04/08/20 Time exam was performed: 00:19 Data : 04/07/20 18:00 04/07/20 18:00 Micro: Microbiology 04/07/20 20:20 Blood Culture - Preliminary Blood SPECIMEN COLLECTED 04/07/20 18:00 Blood Culture - Preliminary Blood SPECIMEN COLLECTED A&P Assessment and plan (1) Acute respiratory failure with hypoxemia: -[facility] on April [facility]In the ER she is on 3 L nasal cannula, white blood cell count 9.9, d-dimer 1.14, sodium 131, creatinine 1.5, CRP 50.5, pro-Chris 0.14, chest x-ray shows right basilar atelectasis, consolidation/pneumonia, biapical interstitial and groundglass opacities -Currently requiring 3 L nasal cannula -Echocardiogram back in November 2019 showed moderate pulmonary hypertension, diastolic dysfunction Plan: -Admit to viral ICU -Sputum cultures, blood cultures, urine bacterial antigens -Broad-spectrum antibiotics given recent hospitalization, will cover for healthcare associate pneumonia, vancomycin, azithromycin, Primaxin for below concerns for ESBL UTI -Monitor respiratory status closely -Telemetry monitoring -Decadron 6 mg IV push daily -We will start remdesvir -Monitor QT interval daily -We will get BMP, troponins, cardiac echo, will diurese based on daily clinical progress Status: Acute (2) Pneumonia due to COVID-19 virus: Status: Acute (3) Sepsis secondary to UTI: -History of recurrent ESBL UTIs -Back in December 2019 she had obstructive uropathy with stent placement, sepsis -Recently discharged 03/17/2020 for ESBL UTI Plan: -Monitor hemodynamics closely -Tylenol for fevers -Primaxin for antibiotic coverage -We will order CT scan of the abdomen pelvis without contrast to evaluate for obstructive uropathy Status: Acute (4) Urinary tract infection: Status: Acute Qualifiers: Hematuria presence: without hematuria Urinary tract infection type: acute cystitis Qualified Code(s): N30.00 - Acute cystitis without hematuria (5) Anemia: -Acute on chronic anemia, monitor hemoglobin, transfuse if hemoglobin is less than 8, no known cardiac history Status: Acute Qualifiers: Anemia type: unspecified type Qualified Code(s): D64.9 - Anemia, unspecified (6) DM2 (diabetes mellitus, type 2): -Low-dose sliding scale Status: Acute (7) Hypothyroidism: -Check TSH, continue levothyroxine Status: Acute Qualifiers: Hypothyroidism type: unspecified Qualified Code(s): E03.9 - Hypothyroidism, unspecified (8) COPD (chronic obstructive pulmonary disease): Status: Acute Qualifiers: COPD type: unspecified COPD Qualified Code(s): J44.9 - Chronic obstructive pulmonary disease, unspecified (9) Cirrhosis of liver: -No abdominal pain complaints, no abdominal distention, will do a liver ultrasound to be on the safe side to evaluate for possible SBP -Continue Xifaxan and lactulose Status: Inactive Qualifiers: Hepatic cirrhosis type: unspecified hepatic cirrhosis Ascites presence: without ascites Qualified Code(s): K74.60 - Unspecified cirrhosis of liver Attestations Medical Necessity Statement*: Patient requires hospitalization, inpatient, greater than 2 midnights for acute respiratory failure secondary COVID-19, sepsis secondary to UTI Coding Level of Care Code Acute Upsetter Setter Up for [facility] Diagnoses Acute respiratory failure with hypoxemia J96.01 Pneumonia due to COVID-19 virus U07.1; J12.89 Sepsis secondary to UTI A41.9; N39.0 Urinary tract infection N30.00 Hematuria presence: without hematuria Urinary tract infection type: acute cystitis Anemia D64.9 Anemia type: unspecified type DM2 (diabetes mellitus, type 2) E11.9 Hypothyroidism E03.9 Hypothyroidism type: unspecified COPD (chronic obstructive pulmonary disease) J44.9 COPD type: unspecified COPD Cirrhosis of liver K74.60 Hepatic cirrhosis type: unspecified hepatic cirrhosis Ascites presence: without ascites Sepsis Evaluation Sepsis screening result: Sepsis Risk Current stage of sepsis: sepsis Possible source: pulmonary and genitourinary Focused Exam Vital Signs Temp Pulse Resp BP Pulse Ox 04/07/20 17:55 93 04/07/20 17:47 100.6 F H 99 26 H 110/35 97 Cardiovascular exam: Present RRR, S1 and S2 Capillary refill: < 3 Seconds Peripheral pulse strength: 2+ Slightly Diminished Peripheral pulse location: Pedal Skin exam: normal turgor Date exam was performed: 04/08/20 Time exam was performed: 00:20
--- NOTE | 2020-04-08 00:15 | CTR_ITS ---
PROCEDURE INFORMATION: Exam: CT Abdomen And Pelvis Without Contrast Exam date and time: 04/08/2020 12:27 AM Age: 75 years old Clinical indication: Abnormal findings; Abnormal lab test; Abnormal kidney function lab tests; Prior surgery; Surgery date: 6+ months; Surgery type: Gb; Patient HX: Obstructive uropathy; Additional info: R/O obstructive uropathy TECHNIQUE: Imaging protocol: Computed tomography of the abdomen and pelvis without contrast. Radiation optimization: All CT scans at this facility use at least one of these dose optimization techniques: automated exposure control; mA and/or kV adjustment per patient size (includes targeted exams where dose is matched to clinical indication); or iterative reconstruction. COMPARISON: CT abdomen pelvis wo con [id number] 01/10/2020 9:34 PM RADIATION DOSE METRICS: Total DLP (mGy-cm): 1885.45 FINDINGS: Liver: The liver demonstrates the nodular surface contour. No parenchymal lesion is visualized. Gallbladder and bile ducts: The gallbladder has been removed. No biliary ductal dilatation. Pancreas: The pancreas is atrophic. No pancreatic ductal dilatation. Spleen: The spleen is mildly enlarged. Adrenals: Normal. No mass. Kidneys and ureters: Mild bilateral perinephric fat stranding is again seen, which is related to chronic changes. No renal stone or hydronephrosis. Stomach and bowel: A large amount of stool is present in the colon. The rectum is mildly distended with formed stool. Mild perirectal fat stranding is appreciated. No intestinal obstruction. Appendix: The appendix is normal. Intraperitoneal space: Unremarkable. No free air. No significant fluid collection. Vasculature: A splenorenal shunt is noted. Lymph nodes: Unremarkable. No enlarged lymph nodes. Urinary bladder: Urinary bladder wall thickening is noted. A catheter is present in the urinary bladder. Reproductive: Unremarkable as visualized. Bones/joints: Mild chronic compression deformity of L4 is again seen. No acute fracture. Soft tissues: Unremarkable. CT/CT kidney stone [id number] IMPRESSION: 1. Constipation and suspected rectal fecal impaction. 2. Possible mild cystitis. No renal stone or hydronephrosis. 3. Mild splenomegaly. 4. Chronic liver disease. Radiation Dose CTDIVOL = (mGy): DLP = 1885.45 (mGy-cm)
--- NOTE | 2020-04-08 00:24 | USCV_ITS ---
Paty Melba Age: 75 Gender: F : 1945 Exam Date: 04/08/2020 09:12 Ordering Phys: Godfrey Cook MD Technologist: Adrián Vargas Exam Location: [facility] [place] Indication: EVAL EF BP: 127 / 56 HR: 101 Rhythm: Sinus Technical Quality: Difficult MEASUREMENTS (Male / Female) Normal Values 2D ECHO LV Diastolic Diameter PLAX 3.6 cm 4.2 - 5.9 / 3.9 - 5.3 cm LV Systolic Diameter PLAX 2.2 cm IVS Diastolic Thickness 0.9 cm 0.6 - 1.0 / 0.6 - 0.9 cm IVS Systolic Thickness 1.1 cm LVPW Diastolic Thickness 1.2 cm 0.6 - 1.0 / 0.6 - 0.9 cm LVPW Systolic Thickness 1.3 cm LVOT Diameter 2.2 cm LV Ejection Fraction 2D Teich 57.9 % LV Ejection Fraction MOD 2C 53.8 % LV Ejection Fraction 2C AL 53.8 % LA Diameter 3.7 cm M-MODE LV Diastolic Diameter MM 5.6 cm 4.2 - 5.9 / 3.9 - 5.3 cm LV Systolic Diameter MM 3.3 cm LV Ejection Fraction MM Teich 71.9 % IVS Diastolic Thickness MM 0.9 cm 0.6 - 1.0 / 0.6 - 0.9 cm IVS Systolic Thickness MM 1.3 cm LVPW Diastolic Thickness MM 1.1 cm 0.6 - 1.0 / 0.6 - 0.9 cm LVPW Systolic Thickness MM 1.5 cm RV Diastolic Diameter MM 1.5 cm Aortic Annulus Diameter 3.9 cm LA Ao Ratio MM 1.1 MV E Point Septal Separation 0.9 cm FINDINGS Left Ventricle This is a limited echocardiogram performed to evaluate LV systolic function. This technically difficult study. Limited visualization of LV structures. Grossly LV systolic function is normal with EF of 55 to 60%. Regional wall motion abnormalities cannot be assessed because of limited visualization. Right Ventricle Right Atrium Left Atrium Mitral Valve Aortic Valve Tricuspid Valve Pulmonic Valve Pericardium Aorta CONCLUSIONS This technically difficult study. This is a limited echocardiogram performed to evaluate LV systolic function. Poor visualization of LV structures. Grossly LV systolic function is normal with EF of 55 to 60%. Regional wall motion abnormalities cannot be assessed because of limited visualization. Compared to prior echo from 12/01/2019, no significant change in LV systolic function is noted. David Sinclair MD (Electronically Signed) Final Date: 08 April 2020 09:41 S
--- NOTE | 2020-04-08 00:24 | ECG_ITS ---
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 Measurements Intervals [place] Rate: 91 P: 57 DE: 182 QRS: -35 QRSD: 92 T: 53 QT: 355 QTc: 438 Interpretive Statements SINUS RHYTHM MARKED LEFT AXIS DEVIATION [QRS AXIS < -30] POSSIBLE ANTERIOR MYOCARDIAL INFARCTION [30 ms Q WAVE IN V3/V4, OR R < 0.2 mV IN V4], OF INDETERMINATE AGE Compared to ECG 03/23/2020 19:00:30 Left-axis deviation now present Myocardial infarct finding now present Sinus tachycardia no longer present T-wave abnormality no longer present Electronically Signed On 04-08-2020 19:58:06 CDT by Margarita Brian M.D. [id number]
--- NOTE | 2020-04-08 00:26 | US_ITS ---
WS: [id number] Complete ABDOMINAL ULTRASOUND HISTORY: liver cirhosis, possible sbp COMPARISON: None available. Liver: cm in length. Liver is normal size and echogenicity with no mass or intrahepatic dilatation. Gallbladder: Normally distended with no gallstones, wall thickening or pericholecystic fluid. Gallbladder wall thickness: cm. Pancreas: Normal size and echogenicity. CBD: cm. Right kidney: cm x cm x cm. No mass, cortical thickening or hydronephrosis. Left kidney: cm x cm x cm. No mass, cortical thickening or hydronephrosis. Spleen: Normal size and echogenicity. Abdominal aorta and IVC are within normal limits. No ascites. US/US abdomen complete* [id number] IMPRESSION: Normal complete abdomen ultrasound.
[2020-04-08] MEDS: enoxaparin 40 mg/0.4 mL Syringe SUBCUT (01:42)
[2020-04-08] MEDS: dexamethasone 4 mg/mL INJ 6 MG IVP (01:42)
[2020-04-08] MEDS: sodium chloride 0.9% 1,000 ML 75 ML IV ×2 (01:43→13:41)
--- NOTE | 2020-04-08 02:05 | PC.NURSE ---
urine output on transfer 400cc
--- NOTE | 2020-04-08 02:24 | ECG_ITS ---
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 Measurements Intervals [place] Rate: 95 P: 60 [place]: 182 QRS: -38 QRSD: 89 T: 59 QT: 340 QTc: 428 Interpretive Statements SINUS RHYTHM MARKED LEFT AXIS DEVIATION [QRS AXIS < -30] POSSIBLE ANTERIOR MYOCARDIAL INFARCTION [30 ms Q WAVE IN V3/V4, OR R < 0.2 mV IN V4], OF INDETERMINATE AGE Compared to ECG 04/08/2020 01:16:00 No significant changes Electronically Signed On 04-08-2020 20:32:02 CDT by Margarita Brian M.D. [id number]
[2020-04-08 02:28] LABS: Troponin(5th) Baseline 19 ng/L (0-10)
[2020-04-08 03:25] LABS: Estmated Average Glucose 186; Hemoglobin A1C 8.1 % (4.0-6.0)
[2020-04-08] MEDS: azithromycin 500 MG in sodium chloride 0.9% 250 ML 250 MG IV (03:34)
[2020-04-08 04:03] LABS: INR 1.72 (0.8-1.2)
[2020-04-08 04:15] LABS: Troponin 5 2HR 17.77 ng/L (0-10)
[2020-04-08 04:29] LABS: Cortisol Random 10.75 ug/mL (2.47-19.5)
[2020-04-08 04:33] LABS: Troponin 5 2HR Delta -1.23 ABS# (0-10)
[2020-04-08] MEDS: vancomycin 1,000 MG in sodium chloride 0.9% 250 ML 250 MG IV (04:35)
[2020-04-08 06:03] LABS: Iron 21 ug/dL (37-145); Thyroid Stimulating Hormone 0.81 uIU/mL (0.27-4.20)
[2020-04-08 06:14] LABS: Folate Level 15.9 ng/mL (4.8-37.3)
[2020-04-08] MEDS: albuterol 8 gm MDI 2 PUFF INHALATION ×2 (06:28→19:25)
[2020-04-08 07:28] LABS: Glucose Point of Care 330 mg/dL (70-110)
[2020-04-08 09:40] LABS: Troponin 5 6HR 18.32 ng/L (0-10)
[2020-04-08 09:48] LABS: Troponin 5 6HR Delta -0.68 ng/L (0-12)
[2020-04-08] MEDS: risperiDONE 0.25 mg Tablet 0.5 MG PO (09:49)
[2020-04-08] MEDS: lactulose oral liq 20 gm/30 mL UDC 30 GM PO ×3 (09:49→20:39)
[2020-04-08] MEDS: levothyroxine 150 mcg Tablet PO (09:49)
[2020-04-08] MEDS: allopurinol 100 mg Tablet PO (09:49)
[2020-04-08] MEDS: metoprolol tartrate 25 mg Tablet 12.5 MG PO ×2 (09:55→17:33)
[2020-04-08] MEDS: pantoprazole DR 40 mg Tablet PO (09:55)
[2020-04-08 11:06] LABS: Glucose Point of Care 385 mg/dL (70-110)
--- NOTE | 2020-04-08 12:18 | PM.PN ---
Subjective Subjective: Interval history: Melba seems somewhat sleepy. She does awaken. Denies complaints. History and physical reviewed. Medications: Reviewed: Yes Vitals/I&O/Wt Last Vital Signs Temp 98.3 F 04/08/20 11:46 Pulse 97 04/08/20 11:46 Resp 24 H 04/08/20 11:46 BP 116/53 04/08/20 11:46 Pulse Ox 92 04/08/20 11:46 04/07/20 04/08/20 04/08/20 22:59 06:59 14:59 Intake Total 1050 / 1050 940 / 940 Output Total 500 / 500 Balance 550 / 550 940 / 940 Weight last 48 hrs Weight 90.718 kg Physical Exam Narrative: EXAM NARRATIVE: General exam is no apparent distress. Nursing has weaned her to room air Cardiovascular regular rate and rhythm without murmur Lungs clear Abdomen is soft with positive bowel sounds Extremities no cyanosis or clubbing Urinary Catheter Management^: Chow: Cath Placed During This Visit: yes Reason for Continuing Indwelling Catheter: Acute Urinary Retention or Obstruction Urinary Catheter Date of Insertion: 04/07/20 Urinary Catheter Time of Insertion: 18:10 Data : 04/07/20 18:00 04/07/20 18:00 Micro: Microbiology 04/08/20 01:30 Bacterial Antigens - Final Urine,Voided 04/07/20 20:20 Blood Culture - Preliminary Blood SPECIMEN COLLECTED 04/07/20 18:00 Blood Culture - Preliminary Blood SPECIMEN COLLECTED A&P Assessment and plan (1) Acute respiratory failure with hypoxemia: Secondary to Covid 19 pneumonia. She has now weaned off oxygen She is significantly sleepy. Therefore will discontinue her Risperdal. Elevated ammonia may be playing a role as well. Continue antiviral, dexamethasone Concern for bacterial pneumonia on admission so was placed on vancomycin, azithromycin, Primaxin Albuterol as needed Status: Acute (2) Pneumonia due to COVID-19 virus: See notations above Await sputum culture, MRSA DNA PCR Continue vancomycin, Primaxin currently Discontinue azithromycin Status: Acute (3) Sepsis secondary to UTI: History of ESBL, UTIs Await urine culture Continue Primaxin currently No evidence of obstruction on CT Status: Acute (4) Urinary tract infection: Status: Acute Qualifiers: Hematuria presence: without hematuria Urinary tract infection type: acute cystitis Qualified Code(s): N30.00 - Acute cystitis without hematuria (5) Anemia: Recheck hemoglobin tomorrow Status: Acute Qualifiers: Anemia type: unspecified type Qualified Code(s): D64.9 - Anemia, unspecified (6) DM2 (diabetes mellitus, type 2): Sliding scale insulin Status: Acute (7) Hypothyroidism: Continue thyroid hormone Status: Acute Qualifiers: Hypothyroidism type: unspecified Qualified Code(s): E03.9 - Hypothyroidism, unspecified (8) COPD (chronic obstructive pulmonary disease): No evidence of exacerbation Status: Acute Qualifiers: COPD type: unspecified COPD Qualified Code(s): J44.9 - Chronic obstructive pulmonary disease, unspecified (9) Cirrhosis of liver: With history of hepatic encephalopathy Continue Xifaxan and lactulose, monitoring for bowel movements Hydration secondary to this. Status: Inactive Qualifiers: Hepatic cirrhosis type: unspecified hepatic cirrhosis Ascites presence: without ascites Qualified Code(s): K74.60 - Unspecified cirrhosis of liver Attestations Medical Necessity Statement*: Needs continued hospitalization, for close monitoring after initiation of antiviral for Covid 19 pneumonia as well as lethargy. Coding Level of Care Code Acute Diplomatic Interpreter/Translator for [facility] Fwd Diagnoses Acute respiratory failure with hypoxemia J96.01 Pneumonia due to COVID-19 virus U07.1; J12.89 Sepsis secondary to UTI A41.9; N39.0 Urinary tract infection N30.00 Hematuria presence: without hematuria Urinary tract infection type: acute cystitis Anemia D64.9 Anemia type: unspecified type DM2 (diabetes mellitus, type 2) E11.9 Hypothyroidism E03.9 Hypothyroidism type: unspecified COPD (chronic obstructive pulmonary disease) J44.9 COPD type: unspecified COPD Cirrhosis of liver K74.60 Hepatic cirrhosis type: unspecified hepatic cirrhosis Ascites presence: without ascites
[2020-04-08 16:35] LABS: Glucose Point of Care 375 mg/dL (70-110)
[2020-04-08] MEDS: insulin glargine 100 units/1 mL 15 UNIT SUBCUT (17:29)
[2020-04-08 20:40] LABS: Glucose Point of Care 342 mg/dL (70-110)
[2020-04-09] VITALS (28 sets, daily range): BP systolic 108–196; BP diastolic 57–130; PULSE 83–94; RESP 10–37; TEMP 36.6–37.3; O2SAT 91–98
[2020-04-09] MEDS: enoxaparin 40 mg/0.4 mL Syringe SUBCUT (01:54)
[2020-04-09] MEDS: vancomycin 1,000 MG in sodium chloride 0.9% 250 ML 250 MG IV (01:55)
[2020-04-09 04:16] LABS: Basophils % 0.2 %; Hematocrit 27.1 % (37.0-47.0); Hemoglobin 8.1 g/dL (11.5-15.3); Lymphocytes # 1.4 10^3/uL (0.8-4.8); Lymphocytes % 25.2 %; Mean Corpuscular HGB Conc 29.9 g/dL (30.0-36.0); Mean Corpuscular Hemoglobin 26.8 pg (28.0-34.0); Mean Corpuscular Volume 89.7 fL (81-99); Mean Platelet Volume 9.9 fL (7.4-10.4); Monocytes # 0.6 10^3/uL (0.2-0.9); Monocytes % 10.3 %; Neutrophils # 3.59 10^3/uL (1.8-7.7); Neutrophils % 63.6 %; Nucleated Red Blood Cells % 0 %; Platelet Count 315 10^3/cmm (130-400); Red Blood Count 3.02 10^6/uL (4.1-5.3); Red Cell Distribution Width 20.5 % (12.1-15.1); White Blood Count 5.6 10^3/uL (4.0-10.0)
[2020-04-09 04:20] LABS: Ammonia 33 umol/L (11-51)
[2020-04-09 04:50] LABS: Alanine Aminotransferase 9 U/L (0-33); Albumin Level 2.9 g/dL (3.5-5.2); Alkaline Phosphatase 130 IU/L (35-105); Anion Gap 14.5 (5-19); Aspartate Amino Transferase 32 U/L (0-32); Blood Urea Nitrogen 34 mg/dL (8-23); Calcium 8.3 mg/dL (8.5-10.5); Carbon Dioxide 18 mmol/L (22-29); Chloride 103 mmol/L (98-107); Globulin 5.3 g/dL (1.3-4.6); Glucose 312 mg/dL (65-115); Magnesium 1.8 mg/dL (1.7-2.3); Osmolality Calculated 293 mOsm/kg (285-295); Potassium 3.5 mmol/L (3.5-5.1); Sodium 132 mmol/L (136-145); Total Bilirubin 0.2 mg/dL (0.15-1.2); Total Protein 8.2 g/dL (6.6-8.7)
--- NOTE | 2020-04-09 05:08 | PC.NURSE ---
PT RESTING IN BED AT THIS TIME. DENIES PAIN. PT STATES THAT THIS TORO FEEL LIKE THEY NEED TO HAVE A BM, BUT DON'T WANT TO GET UP YET. WILL CONTINUE TO MONITOR.
[2020-04-09] MEDS: levothyroxine 150 mcg Tablet PO (05:27)
[2020-04-09] MEDS: sodium chloride 0.9% 1,000 ML 75 ML IV (05:29)
[2020-04-09 06:22] LABS: Glucose Point of Care 315 mg/dL (70-110)
[2020-04-09] MEDS: dexamethasone 4 mg/mL INJ 6 MG IVP (08:00)
[2020-04-09] MEDS: insulin glargine 100 units/1 mL 20 UNIT SUBCUT ×2 (08:00→20:30)
[2020-04-09] MEDS: allopurinol 100 mg Tablet PO (08:01)
[2020-04-09] MEDS: lactulose oral liq 20 gm/30 mL UDC 30 GM PO ×3 (08:02→20:30)
[2020-04-09] MEDS: pantoprazole DR 40 mg Tablet PO (08:04)
[2020-04-09] MEDS: metoprolol tartrate 25 mg Tablet 12.5 MG PO ×2 (08:04→17:28)
[2020-04-09] MEDS: albuterol 8 gm MDI 2 PUFF INHALATION ×3 (08:18→21:05)
[2020-04-09 11:14] LABS: Glucose Point of Care 385 mg/dL (70-110)
[2020-04-09] MEDS: bisacodyl 10 mg Supp PR (12:40)
[2020-04-09 16:08] LABS: Glucose Point of Care 327 mg/dL (70-110)
--- NOTE | 2020-04-09 16:25 | PM.PN ---
Subjective Subjective: Interval history: Melba was much more alert today. No specific complaints. Medications: Reviewed: Yes Vitals/I&O/Wt Last Vital Signs Temp 97.8 F 04/09/20 12:00 Pulse 84 04/09/20 16:23 Resp 17 04/09/20 16:23 BP 164/87 04/09/20 15:01 Pulse Ox 94 04/09/20 16:23 04/09/20 04/09/20 04/09/20 06:59 14:59 22:59 Intake Total 1320 / 3713.75 920 / 920 Output Total 1200 / 2000 Balance 120 / 1713.75 920 / 920 Weight last 48 hrs Weight 90.718 kg Physical Exam Narrative: EXAM NARRATIVE: General exam on room air no evidence of dyspnea Cardiovascular regular rate and rhythm without murmur Lungs clear Abdomen is soft with positive bowel sounds Extremities no cyanosis or clubbing Urinary Catheter Management^: Chow: Cath Placed During This Visit: yes Reason for Continuing Indwelling Catheter: Accurate Measurement of Urinary Output in Critically Ill Patients Urinary Catheter Date of Insertion: 04/07/20 Urinary Catheter Time of Insertion: 18:10 Data : 04/09/20 03:49 04/09/20 03:49 Micro: Microbiology 04/07/20 20:20 Blood Culture - Preliminary Blood Gram positive cocci 04/07/20 18:10 Urine Culture - Preliminary Urine Catheterized Gram Negative Rods 04/07/20 18:00 Blood Culture - Preliminary Blood NEGATIVE TO DATE 04/08/20 01:30 MRSA Culture - Final Nose A&P Assessment and plan (1) Acute respiratory failure with hypoxemia: Secondary to Covid 19 pneumonia. She has now weaned off oxygen Lethargy has gone away with time as well as discontinuation of her Risperdal l. Elevated ammonia may be playing a role as well, which is now back to normal Continue antiviral, dexamethasone Concern for bacterial pneumonia on admission so was placed on vancomycin, azithromycin, Primaxin Vancomycin now discontinued Albuterol as needed Status: Acute (2) Pneumonia due to COVID-19 virus: See notations above MRSA PCR negative so vancomycin discontinued Continue Primaxin Discontinue azithromycin Status: Acute (3) Sepsis secondary to UTI: History of ESBL, UTIs Urine culture growing a small amount of organisms Blood culture with gram-positive cocci / bottle. We will recheck blood culture but expect this to be contaminant Continue Primaxin currently No evidence of obstruction on CT Discontinue IV fluids Status: Acute (4) Urinary tract infection: May be colonization Status: Acute Qualifiers: Hematuria presence: without hematuria Urinary tract infection type: acute cystitis Qualified Code(s): N30.00 - Acute cystitis without hematuria (5) Anemia: Stable currently Status: Acute Qualifiers: Anemia type: unspecified type Qualified Code(s): D64.9 - Anemia, unspecified (6) DM2 (diabetes mellitus, type 2): Sliding scale insulin Status: Acute (7) Hypothyroidism: Continue thyroid hormone Status: Acute Qualifiers: Hypothyroidism type: unspecified Qualified Code(s): E03.9 - Hypothyroidism, unspecified (8) COPD (chronic obstructive pulmonary disease): No evidence of exacerbation Status: Acute Qualifiers: COPD type: unspecified COPD Qualified Code(s): J44.9 - Chronic obstructive pulmonary disease, unspecified (9) Cirrhosis of liver: With history of hepatic encephalopathy Continue Xifaxan and lactulose, monitoring for bowel movements She is now having bowel movements. Will reduce fluids. Continue medications as above I discussed overall goals of care with patient's daughter today. She is considering taking her mother home with hospice, instead of continued nursing facility placement for strengthening. She reports her mother would never have wanted to be at a intermediate, and would not be pleased with her current quality of life. Status: Inactive Qualifiers: Hepatic cirrhosis type: unspecified hepatic cirrhosis Ascites presence: without ascites Qualified Code(s): K74.60 - Unspecified cirrhosis of liver Attestations Medical Necessity Statement*: Needs continued hospitalization, for ongoing treatment with IV antibiotic pending decision by family regarding overall goals of care. Coding Level of Care Code Acute [employer] for [facility] Fwd Diagnoses Acute respiratory failure with hypoxemia J96.01 Pneumonia due to COVID-19 virus U07.1; J12.89 Sepsis secondary to UTI A41.9; N39.0 Urinary tract infection N30.00 Hematuria presence: without hematuria Urinary tract infection type: acute cystitis Anemia D64.9 Anemia type: unspecified type DM2 (diabetes mellitus, type 2) E11.9 Hypothyroidism E03.9 Hypothyroidism type: unspecified COPD (chronic obstructive pulmonary disease) J44.9 COPD type: unspecified COPD Cirrhosis of liver K74.60 Hepatic cirrhosis type: unspecified hepatic cirrhosis Ascites presence: without ascites
[2020-04-09 20:33] LABS: Glucose Point of Care 319 mg/dL (70-110)
[2020-04-10] VITALS (17 sets, daily range): BP systolic 107–173; BP diastolic 66–103; PULSE 91–110; RESP 24–40; TEMP 36.7–36.9; O2SAT 90–95
[2020-04-10] MEDS: albuterol 8 gm MDI 2 PUFF INHALATION ×3 (00:01→08:58)
[2020-04-10] MEDS: enoxaparin 40 mg/0.4 mL Syringe SUBCUT (00:55)
[2020-04-10 06:18] LABS: Glucose Point of Care 384 mg/dL (70-110)
[2020-04-10 06:21] LABS: Alanine Aminotransferase 9 U/L (0-33); Albumin Level 3.2 g/dL (3.5-5.2); Alkaline Phosphatase 137 IU/L (35-105); Anion Gap 18.6 (5-19); Aspartate Amino Transferase 34 U/L (0-32); Blood Urea Nitrogen 33 mg/dL (8-23); Calcium 8.7 mg/dL (8.5-10.5); Carbon Dioxide 14 mmol/L (22-29); Chloride 100 mmol/L (98-107); Globulin 5.9 g/dL (1.3-4.6); Glucose 407 mg/dL (65-115); Osmolality Calculated 292 mOsm/kg (285-295); Potassium 3.6 mmol/L (3.5-5.1); Sodium 129 mmol/L (136-145); Total Bilirubin 0.3 mg/dL (0.15-1.2); Total Protein 9.1 g/dL (6.6-8.7)
[2020-04-10 06:24] LABS: Basophils % 0.2 %; Hematocrit 34.4 % (37.0-47.0); Hemoglobin 11.2 g/dL (11.5-15.3); Lymphocytes # 1.9 10^3/uL (0.8-4.8); Lymphocytes % 15.1 %; Mean Corpuscular HGB Conc 32.6 g/dL (30.0-36.0); Mean Corpuscular Hemoglobin 27.3 pg (28.0-34.0); Mean Corpuscular Volume 83.9 fL (81-99); Mean Platelet Volume 9.9 fL (7.4-10.4); Monocytes # 0.9 10^3/uL (0.2-0.9); Monocytes % 7.4 %; Neutrophils # 9.55 10^3/uL (1.8-7.7); Nucleated Red Blood Cells % 0 %; Platelet Count 582 10^3/cmm (130-400); Red Cell Distribution Width 20.2 % (12.1-15.1); White Blood Count 12.4 10^3/uL (4.0-10.0)
[2020-04-10] MEDS: levothyroxine 150 mcg Tablet PO (06:45)
[2020-04-10] MEDS: dexamethasone 4 mg/mL INJ 6 MG IVP (07:44)
[2020-04-10] MEDS: lactulose oral liq 20 gm/30 mL UDC 30 GM PO (08:30)
[2020-04-10] MEDS: allopurinol 100 mg Tablet PO (08:30)
[2020-04-10] MEDS: insulin glargine 100 units/1 mL 20 UNIT SUBCUT (08:40)
[2020-04-10] MEDS: metoprolol tartrate 25 mg Tablet 12.5 MG PO (08:43)
[2020-04-10] MEDS: pantoprazole DR 40 mg Tablet PO (08:43)
[2020-04-10 11:41] LABS: Glucose Point of Care 419 mg/dL (70-110)
--- NOTE | 2020-04-10 12:58 | PC.SOCIAL ---
IMM Update Pg. 2 of IMM updated with patient's daughter over the phone.
--- NOTE | 2020-04-10 12:59 | PM.PN ---
Subjective Subjective: Interval history: Wheezing some this morning when I saw her. On room air. I have called respiratory for breathing treatment. Nurse reports she is not aspirating when eating. Medications: Reviewed: Yes Vitals/I&O/Wt Last Vital Signs Temp 98.1 F 04/10/20 07:51 Pulse 96 04/10/20 12:00 Resp 40 H 04/10/20 12:00 BP 112/79 04/10/20 12:00 Pulse Ox 94 04/10/20 12:00 04/09/20 04/10/20 04/10/20 22:59 06:59 14:59 Intake Total 1710.0 / 2630.0 340 / 2970.0 440 / 440 Output Total 850 / 850 500 / 1350 Balance 860.0 / 1780.0 -160 / 1620.0 440 / 440 Physical Exam Narrative: EXAM NARRATIVE: General exam on room air no evidence of dyspnea Cardiovascular regular rate and rhythm without murmur Lungs is Abdomen is soft with positive bowel sounds Extremities no cyanosis or clubbing Urinary Catheter Management^: Chow: Cath Placed During This Visit: yes Reason for Continuing Indwelling Catheter: Accurate Measurement of Urinary Output in Critically Ill Patients Urinary Catheter Date of Insertion: 04/07/20 Urinary Catheter Time of Insertion: 18:10 Data : 04/10/20 04:40 04/10/20 04:40 Micro: Microbiology 04/07/20 20:20 Blood Culture - Preliminary Blood Coagulase negativ staphylococc 04/07/20 18:10 Urine Culture - Preliminary Urine Catheterized Gram Negative Rods 04/08/20 08:15 Occult Blood (FIT) - Final Stool 04/10/20 05:50 Blood Culture - Preliminary Blood SPECIMEN COLLECTED 04/10/20 04:40 Blood Culture - Preliminary Blood SPECIMEN COLLECTED A&P Assessment and plan (1) Acute respiratory failure with hypoxemia: Secondary to Covid 19 pneumonia. She has now weaned off oxygen Lethargy has gone away with time as well as discontinuation of her Risperdal Increased wheezing today. Continue antiviral, dexamethasone Concern for bacterial pneumonia on admission so was placed on vancomycin, azithromycin, Primaxin Vancomycin as well as a azithromycin was discontinued. She remains on Primaxin. Albuterol as needed Status: Acute (2) Pneumonia due to COVID-19 virus: See notations above MRSA PCR negative so vancomycin discontinued Continue Primaxin Status: Acute (3) Sepsis secondary to UTI: History of ESBL, UTIs Urine culture growing a small amount of organisms Blood culture with gram-positive cocci 2/4 bottle. Suspect contaminant. Repeat cultures drawn. Note that her MRSA PCR was negative Continue Primaxin currently No evidence of obstruction on CT Discontinue IV fluids Status: Acute (4) Urinary tract infection: May be colonization Status: Acute Qualifiers: Hematuria presence: without hematuria Urinary tract infection type: acute cystitis Qualified Code(s): N30.00 - Acute cystitis without hematuria (5) Anemia: Stable currently Status: Acute Qualifiers: Anemia type: unspecified type Qualified Code(s): D64.9 - Anemia, unspecified (6) DM2 (diabetes mellitus, type 2): Sliding scale insulin Restarted her Lantus. I will increase secondary to persistent hyperglycemia Status: Acute (7) Hypothyroidism: Continue thyroid hormone Status: Acute Qualifiers: Hypothyroidism type: unspecified Qualified Code(s): E03.9 - Hypothyroidism, unspecified (8) COPD (chronic obstructive pulmonary disease): No evidence of exacerbation Status: Acute Qualifiers: COPD type: unspecified COPD Qualified Code(s): J44.9 - Chronic obstructive pulmonary disease, unspecified (9) Cirrhosis of liver: With history of hepatic encephalopathy Continue Xifaxan and lactulose, monitoring for bowel movements Last ammonia level improved I discussed overall goals of care with patient's daughter yesterday as well as today. She is considering taking her mother home with hospice, instead of continued nursing facility placement for strengthening. She reports her mother would never have wanted to be at a senior living, and would not be pleased with her current quality of life. However, she does not have the ability to take care of her at home currently. She would like to change her CODE STATUS to comfort measures/DNR on discharge. We will arrange for discharge today. Status: Inactive Qualifiers: Hepatic cirrhosis type: unspecified hepatic cirrhosis Ascites presence: without ascites Qualified Code(s): K74.60 - Unspecified cirrhosis of liver Attestations Medical Necessity Statement*: Not applicable Coding Level of Care Code Acute [place] for [facility] Fwd Diagnoses Acute respiratory failure with hypoxemia J96.01 Pneumonia due to COVID-19 virus U07.1; J12.89 Sepsis secondary to UTI A41.9; N39.0 Urinary tract infection N30.00 Hematuria presence: without hematuria Urinary tract infection type: acute cystitis Anemia D64.9 Anemia type: unspecified type DM2 (diabetes mellitus, type 2) E11.9 Hypothyroidism E03.9 Hypothyroidism type: unspecified COPD (chronic obstructive pulmonary disease) J44.9 COPD type: unspecified COPD Cirrhosis of liver K74.60 Hepatic cirrhosis type: unspecified hepatic cirrhosis Ascites presence: without ascites
--- NOTE | 2020-04-10 13:24 | PM.DCS ---
Discharge Providers Date of Admission: 04/07/20 22:36 Date of Discharge: April 10, 2020 Attending Provider at Admission: Godfrey Cook MD Attending Provider at Discharge: Jay Washington MD Primary Care Provider: Dylan Yanes Jr, MD Diagnoses at Discharge Discharge Diagnosis (1) Acute respiratory failure with hypoxemia: Status: Acute Problem details: Likely secondary to COVID as well as COPD exacerbation (2) Pneumonia due to COVID-19 virus: Status: Acute (3) Sepsis secondary to UTI: Status: Acute (4) Urinary tract infection: Status: Acute Qualifiers: Hematuria presence: without hematuria Urinary tract infection type: acute cystitis Qualified Code(s): N30.00 - Acute cystitis without hematuria (5) Anemia: Status: Acute Qualifiers: Anemia type: unspecified type Qualified Code(s): D64.9 - Anemia, unspecified (6) DM2 (diabetes mellitus, type 2): Status: Acute (7) Hypothyroidism: Status: Acute Qualifiers: Hypothyroidism type: unspecified Qualified Code(s): E03.9 - Hypothyroidism, unspecified (8) COPD (chronic obstructive pulmonary disease): Status: Acute Problem details: -Not oxygen dependent at baseline Qualifiers: COPD type: unspecified COPD Qualified Code(s): J44.9 - Chronic obstructive pulmonary disease, unspecified (9) Cirrhosis of liver: Status: Inactive Problem details: -Has history of idiopathic liver cirrhosis Qualifiers: Hepatic cirrhosis type: unspecified hepatic cirrhosis Ascites presence: without ascites Qualified Code(s): K74.60 - Unspecified cirrhosis of liver Reason for Visit Reason for Visit: COVID POS; FEVER; HEMATURIA Hospital Course Hospital Course: Melba is a 75-year-old white female with history of multiple hospitalizations for hepatic encephalopathy as well as urinary tract infection. She presented this hospital stay with increasing respiratory distress and history of positive COVID test. She required some oxygen on admission. She was placed on antiviral as well as dexamethasone and albuterol. She was placed on Primaxin and vancomycin for concern of possible sepsis and/or UTI. During her hospital course her MRSA PCR was negative. Urine culture was still pending at discharge. She was able to wean off to room air. She still had some wheezing and was receiving albuterol. I had extensive discussions with her daughter regarding her overall quality of life, and what Melba would have wanted as she has underlying confusion now that prevents her from making decisions. Daughter reported that she would like to take her home on hospice, but ultimately the decision was made not to do this secondary to significant cares needed. The daughter reported that her mother would not want to go on with her quality of life being this poor, and at this point would transition to do not rehospitalize, converting to comfort measures only should she worsen. Therefore she was discharged home on April 10. She will continue a few days of dexamethasone for her COPD exacerbation and COVID. We will continue her home medicines but should she worsen at this point daughter requests no rehospitalization and conversion to comfort measures. Comfort medications of morphine and Ativan were ordered on discharge in case this comes to fruition. Physical Exam Narrative: EXAM NARRATIVE: See examination from earlier today Urinary Catheter Management^: Chow: Cath Placed During This Visit: yes Reason for Continuing Indwelling Catheter: Accurate Measurement of Urinary Output in Critically Ill Patients Urinary Catheter Date of Insertion: 04/07/20 Urinary Catheter Time of Insertion: 18:10 Discharge Data Data Completed and Pending: Completed Studies During Hospitalization Category Date Time Status CT angio chest PE protcl [id number] Rout ine Cat Scan 04/08/20 00:[address] kidney stone 7 4176 Routine Cat Scan 04/08/20 00:15 Completed XR chest 1V sarina ble [id number] Stat Exams 04/07/20 17:53 Completed CV echo limited 9 3308 Routine Ultrasound 04/08/20 00:24 Completed US abdomen comple te* [id number] Routine Ultrasound 04/08/20 00:26 Completed Pending at discharge Category Date Time Status Blood Culture AM LABS Lab 04/10/20 05:50 Results Blood Culture Sta t Lab 04/07/20 20:20 Results Complete Blood Co unt w/Auto AM LABS Lab 04/11/20 04:00 Ordered Comprehensive Met abolic Panel AM LA BS Lab 04/11/20 04:00 Ordered Sputum Culture an d Gram Stain Stat Lab 04/07/20 17:53 Uncollected Urine Culture Sta t Lab 04/07/20 18:10 Results Labs from last 24 hours 04/10/20 04/10/20 04/10/20 11:05 06:01 04:40 WBC RBC Hgb Hct MCV MCH MCHC RDW Plt Count MPV Neut % (Auto) Lymph % (Auto) [place] % (Auto) Eos % (Auto) Baso % (Auto) Neut # (Auto) Lymph # (Auto) [place] # (Auto) Eos # (Auto) Baso # (Auto) Nucleated RBC % (a uto) Nucleated RBCs # Sodium 129 L Potassium 3.6 Chloride 100 Carbon Dioxide 14 L Anion Gap 18.6 BUN 33 H Creatinine 1.3 H GFR Calculation Not Reportable Glucose 407 H POC Glucose 419 384 Calculated Osmolal ity 292 Calcium 8.7 Total Bilirubin 0.3 AST 34 H ALT 9 Alkaline Phosphata se 137 H Total Protein 9.1 H Albumin 3.2 L Globulin 5.9 H 04/10/20 04/09/20 04/09/20 04:40 20:29 15:58 WBC 12.4 H RBC 4.10 Hgb 11.2 L Hct 34.4 L MCV 83.9 MCH 27.3 L MCHC 32.6 RDW 20.2 H Plt Count 582 H MPV 9.9 Neut % (Auto) 77.0 Lymph % (Auto) 15.1 [place] % (Auto) 7.4 Eos % (Auto) 0.0 Baso % (Auto) 0.2 Neut # (Auto) 9.55 H Lymph # (Auto) 1.9 [place] # (Auto) 0.9 Eos # (Auto) 0.0 Baso # (Auto) 0.0 Nucleated RBC % (a uto) 0 Nucleated RBCs # 0.0 Sodium Potassium Chloride Carbon Dioxide Anion Gap BUN Creatinine GFR Calculation Glucose POC Glucose 319 327 Calculated Osmolal ity Calcium Total Bilirubin AST ALT Alkaline Phosphata se Total Protein Albumin Globulin Vitals: Last Vital Signs Temp 98.1 F 04/10/20 07:51 Pulse 94 04/10/20 13:00 Resp 27 H 04/10/20 13:00 BP 153/71 04/10/20 13:00 Pulse Ox 94 04/10/20 13:00 Discharge Plan Discharge Patient Disposition: Xfer SNF Condition: Fair Prescriptions: New morphine concentrate 100 mg/5 mL (20 mg/mL) solution 5 mg PO Q2H PRN (Reason: pain) Qty: 30 RF: 0 Ativan 2 mg/mL solution 1 mg BUCCAL Q4H PRN (Reason: anxiety) Qty: 25 RF: 0 dexamethasone 6 mg tablet 3 mg PO DAILY Qty: 3 RF: 0 fluticasone propion-salmeterol [Advair Diskus] 100-50 mcg/dose Blister With Device 1 puff inhalation BID.RESPIRATORY Qty: 1 RF: 0 doxycycline hyclate 100 mg capsule 100 mg PO BID 7 Days Qty: 14 RF: 0 Continued alprazolam [Xanax] 0.25 mg tablet 0.25 mg PO BID RF: 0 Milk of Magnesia 400 mg/5 mL Suspension 30 ml PO DAILY PRN (Reason: Constipation) RF: 0 bisacodyl 10 mg Suppository 10 mg WV DAILY PRN (Reason: Constipation) RF: 0 Enema 19-7 gram/118 mL Enema 118 ml WV DAILY PRN (Reason: Constipation) RF: 0 Risperdal 0.5 mg Tablet 0.5 mg PO BID RF: 0 Lantus U-100 Insulin 100 unit/mL solution 20 unit SUBCUT BID Qty: 10 RF: 0 Humalog KwikPen Insulin 100 unit/mL insulin pen 10 unit SUBCUT TID Qty: 0 RF: 0 hydrocodone-acetaminophen 5-325 mg tablet 1 tab PO Q8H PRN (Reason: pain) Qty: 30 RF: 0 allopurinol 100 mg tablet 100 mg PO DAILY Qty: 30 RF: 3 omeprazole 20 mg capsule,delayed release(DR/EC) 20 mg PO DAILY Qty: 30 RF: 0 albuterol sulfate [ProAir HFA] 90 mcg/actuation HFA aerosol inhaler 2 puff INHALATION Q6H PRN (Reason: shortness of breath) Qty: 8.5 RF: 3 metoprolol tartrate 25 mg tablet 12.5 mg PO BID Qty: 30 RF: 0 duloxetine [Cymbalta] 30 mg Capsule,Delayed Release(Dr/Ec) 30 mg PO BID Qty: 60 RF: 0 levothyroxine 150 mcg capsule 150 mcg PO DAILY Qty: 30 RF: 0 Xifaxan 550 MG 550 mg PO BID Qty: 60 RF: 0 lactulose 20 gram/30 mL solution 30 g PO TID Qty: 1200 RF: 0 Discontinued Victoza 3-Porter 0.6 mg/0.1 mL (18 mg/3 mL) pen injector 1.8 mg SUBCUT Q24H Qty: 9 RF: 0 Discharge Orders: Discharge Order (Routine); Ordered 04/10/20 Ordered By: Jay Washington Discharge Diet: Usual diet Discharge Activity: Increase activity as tolerated Activity Restrictions/Additional Instructions: She is DNR. She is do not rehospitalized. These are instructions per daughter. If worsening, change to complete comfort measures. May continue to use oxygen 2 L per nasal cannula, titrate for sat greater than or equal to 92% Discharge Attestations Time Spent in Discharge Care*: greater than 30 min Status at Discharge: Cognitive status at discharge: moderately impaired cognition, Behavioral status at discharge: cooperative and can be uncooperative, Quality Metrics Clinical Quality Measures During this hospital stay, did patient experience: None Coding Level of Care Code Acute [place] for [facility] Fwd Diagnoses Acute respiratory failure with hypoxemia J96.01 Pneumonia due to COVID-19 virus U07.1; J12.89 Sepsis secondary to UTI A41.9; N39.0 Urinary tract infection N30.00 Hematuria presence: without hematuria Urinary tract infection type: acute cystitis Anemia D64.9 Anemia type: unspecified type DM2 (diabetes mellitus, type 2) E11.9 Hypothyroidism E03.9 Hypothyroidism type: unspecified COPD (chronic obstructive pulmonary disease) J44.9 COPD type: unspecified COPD Cirrhosis of liver K74.60 Hepatic cirrhosis type: unspecified hepatic cirrhosis Ascites presence: without ascites
--- NOTE | 2020-04-12 09:27 | PC.SOCIAL ---
04/11/[address] Washington regarding critical urine culture result with ECOLI ESBL. Dr Washington replied no further orders needed at this time. Results called to Tierra patient nurse at [facility] and updated on results. Also faxed results to requested fax [phone] and asked to have attending review. Explained Dr Washington did not feel further orders were needed but would like attending to review. Tierra verbalized understanding and was appreciative of the call. Confirmation received that fax was sent successfully.
== END 2020-04-10 15:30 | disposition skilled nursing facility (03) | DRG 871 ==
LOC: ER 17:55 → MEDSURG 22:56 → ICU 23:02
PROVIDERS: Emergency Medicine; Admitting Provider Family Medicine; PCP Family Medicine; Visit Provider Internal Medicine
DX: A41.9 Sepsis, unspecified organism (principal); U07.1 COVID-19; J12.89 Other viral pneumonia; J96.01 Acute respiratory failure with hypoxia; N39.0 Urinary tract infection, site not specified; E03.9 Hypothyroidism, unspecified; E11.22 Type 2 diabetes mellitus with diabetic chronic kidney disease; I12.9 Hypertensive chronic kidney disease with stage 1 through stage 4 chronic kidney disease, or unspecified chronic kidney disease; N18.30 Chronic kidney disease, stage 3 unspecified; Z79.4 Long term (current) use of insulin; M10.9 Gout, unspecified; Z87.891 Personal history of nicotine dependence; K74.60 Unspecified cirrhosis of liver; K21.9 Gastro-esophageal reflux disease without esophagitis; J44.9 Chronic obstructive pulmonary disease, unspecified; F03.90 Unspecified dementia, unspecified severity, without behavioral disturbance, psychotic disturbance, mood disturbance, and anxiety; M79.7 Fibromyalgia; D63.1 Anemia in chronic kidney disease; Z66 Do not resuscitate; Z79.891 Long term (current) use of opiate analgesic
CPT/HCPCS: 12345; 36415; 36416; 36600; 51702; 71045; 71275; 74176; 76700; 80053; 81001; 82140; 82274; 82533; 82728; 82746; 82803; 82962; 83036; 83540; 83605; 83615; 83735; 83880; 84145; 84443; 84484; 85025; 85045; 85378; 85384; 85610; 86140; 86403; 87040; 87077; 87086; 87186; 87205; 87641; 93005; 93308; 94640; 94664; 96372; 96375; 99283; J0456; J0743; J1100; J1650; J1815 ×2; J3370; J3535; J7030; J7050; Q9967

== ENCOUNTER 2020-08-06 07:49 | Outpatient (CLI) | payer MEDICARE, MEDICAID, SELFPAY ==
[2020-08-06 08:57] LABS: Basophils % 0.1 %; Eosinophils # 0.1 10^3/uL (0.0-0.8); Eosinophils % 1.7 %; Hemoglobin 7.9 g/dL (11.5-15.3); Lymphocytes # 3.8 10^3/uL (0.8-4.8); Lymphocytes % 52.7 %; Mean Corpuscular HGB Conc 30.4 g/dL (30.0-36.0); Mean Corpuscular Hemoglobin 26.6 pg (28.0-34.0); Mean Corpuscular Volume 87.5 fL (81-99); Mean Platelet Volume 9.1 fL (7.4-10.4); Monocytes # 0.5 10^3/uL (0.2-0.9); Monocytes % 7.3 %; Neutrophils # 2.69 10^3/uL (1.8-7.7); Neutrophils % 37.6 %; Nucleated Red Blood Cells % 0.3 %; Platelet Count 237 10^3/cmm (130-400); Red Blood Count 2.97 10^6/uL (4.1-5.3); Red Cell Distribution Width 19.1 % (12.1-15.1); White Blood Count 7.1 10^3/uL (4.0-10.0)
== END 2020-08-06 07:50 | disposition home or self-care (01) ==
LOC: LAB 07:51
PROVIDERS: PCP Family Medicine; Visit Provider Nurse Practitioner Family
DX: D64.9 Anemia, unspecified (principal)
CPT/HCPCS: 85025

== ENCOUNTER 2020-08-12 08:10 | Outpatient (CLI) | payer MEDICARE, MEDICAID, SELFPAY ==
[2020-08-12 08:49] LABS: Basophils % 0.2 %; Eosinophils # 0.1 10^3/uL (0.0-0.8); Eosinophils % 1.7 %; Hematocrit 26.2 % (37.0-47.0); Hemoglobin 7.8 g/dL (11.5-15.3); Lymphocytes # 2.7 10^3/uL (0.8-4.8); Mean Corpuscular HGB Conc 29.8 g/dL (30.0-36.0); Mean Corpuscular Hemoglobin 26.4 pg (28.0-34.0); Mean Corpuscular Volume 88.8 fL (81-99); Monocytes # 0.6 10^3/uL (0.2-0.9); Monocytes % 10.1 %; Neutrophils # 2.32 10^3/uL (1.8-7.7); Neutrophils % 40.5 %; Nucleated Red Blood Cells % 0 %; Platelet Count 204 10^3/cmm (130-400); Red Blood Count 2.95 10^6/uL (4.1-5.3); Red Cell Distribution Width 19.4 % (12.1-15.1); White Blood Count 5.7 10^3/uL (4.0-10.0)
[2020-08-12 09:21] LABS: Thyroid Stimulating Hormone 0.78 uIU/mL (0.27-4.20)
== END 2020-08-12 08:11 | disposition home or self-care (01) ==
LOC: LAB 08:17
PROVIDERS: PCP Family Medicine; Visit Provider Nurse Practitioner Family
DX: D64.9 Anemia, unspecified (principal)
CPT/HCPCS: 84443; 85025

== ENCOUNTER 2020-08-15 10:37 | Outpatient (CLI) | payer MEDICARE, MEDICAID, SELFPAY ==
[2020-08-15 11:22] LABS: Basophils % 0.1 %; Eosinophils # 0.1 10^3/uL (0.0-0.8); Eosinophils % 1.9 %; Hematocrit 23.8 % (37.0-47.0); Hemoglobin 7.1 g/dL (11.5-15.3); Lymphocytes # 4.1 10^3/uL (0.8-4.8); Lymphocytes % 54.5 %; Mean Corpuscular HGB Conc 29.8 g/dL (30.0-36.0); Mean Corpuscular Hemoglobin 26.3 pg (28.0-34.0); Mean Corpuscular Volume 88.1 fL (81-99); Mean Platelet Volume 9.3 fL (7.4-10.4); Monocytes # 0.9 10^3/uL (0.2-0.9); Monocytes % 11.4 %; Neutrophils # 2.37 10^3/uL (1.8-7.7); Neutrophils % 31.7 %; Nucleated Red Blood Cells % 0.4 %; Platelet Count 180 10^3/cmm (130-400); Red Cell Distribution Width 18.8 % (12.1-15.1); White Blood Count 7.5 10^3/uL (4.0-10.0)
== END 2020-08-15 10:38 | disposition home or self-care (01) ==
PROVIDERS: PCP Family Medicine; Visit Provider Nurse Practitioner Family
DX: D64.9 Anemia, unspecified (principal)
CPT/HCPCS: 85025

== ENCOUNTER → 2020-08-16 09:09 | Day surgery (SDC) | payer MEDICARE, MEDICAID, SELFPAY ==
[2020-08-16] VITALS (10 sets, daily range): BP systolic 124–161; BP diastolic 70–93; PULSE 78–87; RESP 18–19; TEMP 36.3–37.1; O2SAT 97–100; BMI 33.3
--- NOTE | 2020-08-16 11:12 | PC.NURSE ---
Spoke with Dr Washington, stated to use patient's sliding scale order from the [facility]. Kaye nurse faxed over med list. Updated in chart.
[2020-08-16] MEDS: diphenhydrAMINE 25 mg Capsule PO (11:36)
[2020-08-16] MEDS: acetaminophen 325 mg Tablet 650 MG PO (11:36)
--- NOTE | 2020-08-16 11:53 | PC.NURSE ---
1150 pt transfustion of PRBs started vital signs stable Temp 98.6, RR 18, CT 81 BP 145/80, lung sounds clear with auscultation
--- NOTE | 2020-08-16 12:07 | PC.NURSE ---
1205 Infusion rate increased to 150 from 100 vital signs stable Temp 98.1 RR 18 WA 80 BP 146/78. pt states she feels ok
[2020-08-16] MEDS: insulin regular-human 100 units/1 mL 4 UNIT SUBCUT (13:07)
--- NOTE | 2020-08-16 13:54 | PC.NURSE ---
1330 KB RN gave this nurse report on pt. pt was stable and eating a lunch tray vitals at 1350 MD 78, Temp 97.7, 161/83 BP, RR 18 pt first unit of blood is almost complete. second unit is being picked up. pt tolerating transfusion well.
[2020-08-16] MEDS: FUROsemide 10 mg/mL SDV 2mL 20 MG IVP (14:04)
--- NOTE | 2020-08-16 14:15 | PC.NURSE ---
1410 second unit of PRBS started at 100 ML/HR pt vitals stable Temp 98.3, OR 81, BP 158/93, RR 18, lung sounds clear on auscultation. pt currently resting
--- NOTE | 2020-08-16 15:23 | PC.NURSE ---
1523 Pt to OPS to receive two units PRBC's. Second unit infusing without difficulty. Lungs clear. VSS. Report called to DASHAWN Jaramillo at [facility].
--- NOTE | 2020-08-16 16:22 | SUR.PHASEII ---
1605 Tamiok MckeonRN here in OPS and stated that ethan coelho to seed cone picker patient
== END ==
PROVIDERS: PCP Family Medicine; Visit Provider Nurse Practitioner Family
DX: D64.9 Anemia, unspecified (principal)
CPT/HCPCS: 36415; 36430; 86850; 86900; 86920; 96372; 96374; J1815; J1940; P9016

== ENCOUNTER → 2020-08-22 14:43 | Outpatient (BNVA) | payer MEDICARE, MEDICAID, SELFPAY | PROVIDERS: PCP Family Medicine; Visit Provider Obstetrics & Gynecology | DX: N93.9 Abnormal uterine and vaginal bleeding, unspecified (principal) | CPT/HCPCS: 76830 ==

== ENCOUNTER 2020-08-30 08:23 | Outpatient (CLI) | payer MEDICARE, MEDICAID, SELFPAY ==
[2020-08-30 08:59] LABS: Potassium 4.6 mmol/L (3.5-5.1)
== END 2020-08-30 08:24 | disposition home or self-care (01) ==
LOC: LAB 08:26
PROVIDERS: PCP Family Medicine; Visit Provider Family Medicine
DX: E87.6 Hypokalemia (principal)
CPT/HCPCS: 84132

== ENCOUNTER 2020-09-05 12:40 | Outpatient (CLI) | payer MEDICARE, MEDICAID, SELFPAY ==
[2020-09-05 13:23] LABS: Basophils % 0.2 %; Eosinophils % 0.2 %; Hematocrit 32.1 % (37.0-47.0); Hemoglobin 9.5 g/dL (11.5-15.3); Lymphocytes # 4.2 10^3/uL (0.8-4.8); Lymphocytes % 31.8 %; Mean Corpuscular HGB Conc 29.6 g/dL (30.0-36.0); Mean Corpuscular Hemoglobin 26.3 pg (28.0-34.0); Mean Corpuscular Volume 88.9 fL (81-99); Mean Platelet Volume 10.2 fL (7.4-10.4); Monocytes # 3.5 10^3/uL (0.2-0.9); Monocytes % 26.3 %; Neutrophils # 5.41 10^3/uL (1.8-7.7); Neutrophils % 41.1 %; Nucleated Red Blood Cells # 0.1 /100WBC; Nucleated Red Blood Cells % 0.6 %; Platelet Count 132 10^3/cmm (130-400); Red Blood Count 3.61 10^6/uL (4.1-5.3); Red Cell Distribution Width 19.6 % (12.1-15.1); White Blood Count 13.1 10^3/uL (4.0-10.0)
[2020-09-05 13:41] LABS: Alanine Aminotransferase 8 U/L (0-33); Albumin Level 2.6 g/dL (3.5-5.2); Alkaline Phosphatase 103 IU/L (35-105); Aspartate Amino Transferase 27 U/L (0-32); Blood Urea Nitrogen 31 mg/dL (8-23); Carbon Dioxide 20 mmol/L (22-29); Chloride 103 mmol/L (98-107); Globulin 6.2 g/dL (1.3-4.6); Glucose 94 mg/dL (65-115); Osmolality Calculated 280 mOsm/kg (285-295); Sodium 132 mmol/L (136-145); Total Bilirubin 0.5 mg/dL (0.15-1.2); Total Protein 8.8 g/dL (6.6-8.7)
[2020-09-05 13:45] LABS: Add Urine Microscopic? YES; Bilirubin Urine Neg (Negative); Blood Urine 3+ (Negative); Glucose Urine UA Norm (Normal); Ketones Urine Negative (Negative); Leukocyte Esterase Urine 2+ (Negative); Nitrate Urine Negative (Negative); Protein Urine 2+ (Negative); Specific Gravity, Urine 1.005 (1.005-1.030); Urine Appearance Hazy (CLEAR); Urine Color Yellow (Yellow); Urobilinogen Urine Norm (Negative); pH Urine 8 (5-7)
[2020-09-05 13:47] LABS: Add Urine Culture? No; Bacteria Urine 4+ /hpf; WBC Urine TOO NUMEROUS TO CNT /hpf (0-5)
[2020-09-05 13:51] LABS: Anion Gap 13.8 (5-19); Potassium 4.8 mmol/L (3.5-5.1)
[2020-09-05 15:55] LABS: Slide Review Slide Review Perform
== END 2020-09-05 12:41 | disposition home or self-care (01) ==
LOC: LAB 12:43
PROVIDERS: PCP Nurse Practitioner Family; Visit Provider Nurse Practitioner Family
DX: E11.9 Type 2 diabetes mellitus without complications (principal)
CPT/HCPCS: 80053; 81001; 81003; 85025; 87077; 87086; 87186

== ENCOUNTER 2020-09-18 14:06 | Outpatient (CLI) | payer MEDICARE, MEDICAID, SELFPAY ==
[2020-09-18 14:36] LABS: Basophils % 0.2 %; Eosinophils % 0.1 %; Hematocrit 34.5 % (37.0-47.0); Hemoglobin 9.6 g/dL (11.5-15.3); Lymphocytes # 3.6 10^3/uL (0.8-4.8); Lymphocytes % 31.8 %; Mean Corpuscular HGB Conc 27.8 g/dL (30.0-36.0); Mean Corpuscular Hemoglobin 25.7 pg (28.0-34.0); Mean Corpuscular Volume 92.5 fL (81-99); Mean Platelet Volume 9.3 fL (7.4-10.4); Monocytes # 4.8 10^3/uL (0.2-0.9); Monocytes % 41.6 %; Neutrophils # 3.01 10^3/uL (1.8-7.7); Neutrophils % 26.3 %; Nucleated Red Blood Cells # 0.1 /100WBC; Nucleated Red Blood Cells % 0.4 %; Platelet Count 68 10^3/cmm (130-400); Red Blood Count 3.73 10^6/uL (4.1-5.3); Red Cell Distribution Width 20.1 % (12.1-15.1); White Blood Count 11.4 10^3/uL (4.0-10.0)
[2020-09-18 15:09] LABS: Slide Review Slide Review Perform
[2020-09-18 16:43] LABS: Protein Urine Trace (Negative); Urine Appearance Hazy (CLEAR); Urine Color Yellow (Yellow); pH Urine 6 (5-7)
[2020-09-18 16:44] LABS: Add Urine Microscopic? YES; Bilirubin Urine Neg (Negative); Blood Urine 2+ (Negative); Glucose Urine UA Norm (Normal); Ketones Urine Negative (Negative); Leukocyte Esterase Urine 2+ (Negative); Nitrate Urine Negative (Negative); Urobilinogen Urine Norm (Negative)
[2020-09-18 16:45] LABS: Add Urine Culture? Yes; Bacteria Urine 4+ /hpf; RBC Urine 0-4 /hpf (0-2); Squamous Epithelial Cell Urine 0-4 /hpf (0-5); WBC Urine TOO NUMEROUS TO CNT /hpf (0-5)
== END 2020-09-18 14:07 | disposition home or self-care (01) ==
PROVIDERS: PCP Nurse Practitioner Family; Visit Provider Nurse Practitioner Family
DX: N39.0 Urinary tract infection, site not specified (principal); D64.9 Anemia, unspecified
CPT/HCPCS: 81001; 85025; 87077; 87086; 87186

== ENCOUNTER 2020-10-04 13:10 | Outpatient (CLI) | payer MEDICARE, MEDICAID, SELFPAY ==
[2020-10-04] VITALS (12 sets, daily range): BP systolic 119–166; BP diastolic 69–96; PULSE 93–105; RESP 17–20; TEMP 36.9–37.5; O2SAT 95–98
[2020-10-04 13:58] LABS: Hematocrit 23.4 % (37.0-47.0); Hemoglobin 6.7 g/dL (11.5-15.3); Mean Corpuscular HGB Conc 28.6 g/dL (30.0-36.0); Mean Corpuscular Hemoglobin 24.5 pg (28.0-34.0); Mean Corpuscular Volume 85.4 fL (81-99); Mean Platelet Volume 9.4 fL (7.4-10.4); Red Blood Count 2.74 10^6/uL (4.1-5.3); White Blood Count 11.9 10^3/uL (4.0-10.0)
[2020-10-04 14:18] LABS: LAB Peripheral Smear Sent for Review
[2020-10-04 14:24] LABS: Absolute Eosinophils 0.1 10^3/cmm (0.0-0.7); Absolute Segmented Neutrophil 2.1 10/cmm (1.6-7.1); Band Neutrophils Absolute 0.5 10^3/cmm (0.0-1.2); Eosinophils 1 %; Lymphocytes 45 %; Lymphocytes Absolute 6.2 10^3/cmm (1.2-3.4); Monocytes Absolute 2.3 10^3/cmm (0.1-0.6); Platelet Count 28 10^3/cmm (130-400); Segmented Neutrophils 18 %; Slide Review Slide Review Perform; Total Cells Counted 100 (0-100)
[2020-10-04 14:25] LABS: Absolute Neutrophil 2.6 10^3/cmm (1.4-6.5); Anisocytosis 2+; Blastocytes 4 % (0-0); Platelet Estimate Decreased (Normal)
[2020-10-04 17:00] LABS: Glucose Point of Care 450 mg/dL (70-110)
[2020-10-04 17:00] LABS: Glucose Point of Care 371 mg/dL (70-110)
[2020-10-04] MEDS: sodium chloride 0.9% (100 ml) 100 ML 125 ML (21:09)
[2020-10-04 21:13] LABS: Glucose Point of Care 306 mg/dL (70-110)
--- NOTE | 2020-10-04 22:43 | PC.NURSE ---
pt had large brown soft BM and placed into brief, IV removed from right AC. pt left with [facility] transport at 2245 via stretcher
== END 2020-10-04 22:43 | disposition home or self-care (01) ==
LOC: OPMS 13:12 → MEDSURG 13:13
PROVIDERS: PCP Nurse Practitioner Family; Visit Provider Family Medicine
DX: N39.0 Urinary tract infection, site not specified (principal); D64.9 Anemia, unspecified
CPT/HCPCS: 36415; 36416; 36430; 82962; 85007; 85025; 86850; 86900; 86920; 96372; J1815; P9016

== ENCOUNTER → 2020-10-09 12:33 | Day surgery (SDC) | payer MEDICARE, MEDICAID, SELFPAY ==
[2020-10-09 12:33] VITALS: BP 136/62; PULSE 86; RESP 18; TEMP 36.7; O2SAT 97
[2020-10-09 13:37] LABS: Hematocrit 31.5 % (37.0-47.0); Hemoglobin 8.7 g/dL (11.5-15.3)
--- NOTE | 2020-10-09 14:44 | PC.NURSE ---
Pt was sent to hospital to receive blood. Hemoglobin 8.7 did not meet requirement to administer blood. [place] was informed, Josette Paniagua authorized pt's return to [place] by HERIBERTO
== END ==
PROVIDERS: PCP Nurse Practitioner Family; Visit Provider Nurse Practitioner Family
DX: D64.9 Anemia, unspecified (principal)
CPT/HCPCS: 36415; 85014; 85018

== ENCOUNTER 2020-10-17 13:40 | Outpatient (CLI) | payer MEDICARE, MEDICAID, SELFPAY ==
[2020-10-17 15:00] LABS: Hematocrit 27.2 % (37.0-47.0); Hemoglobin 7.5 g/dL (11.5-15.3); Mean Corpuscular HGB Conc 27.6 g/dL (30.0-36.0); Mean Corpuscular Hemoglobin 23.8 pg (28.0-34.0); Mean Corpuscular Volume 86.3 fL (81-99); Platelet Count 37 10^3/cmm (130-400); Red Blood Count 3.15 10^6/uL (4.1-5.3); Red Cell Distribution Width 17.8 % (12.1-15.1); White Blood Count 29.7 10^3/uL (4.0-10.0)
[2020-10-17 16:02] LABS: Slide Review Slide Review Perform
[2020-10-17 19:08] LABS: Segmented Neutrophils 37 %; Total Cells Counted 100 (0-100)
[2020-10-17 19:09] LABS: Absolute Eosinophils 0.8 10^3/cmm (0.0-0.7); Eosinophils 3 %; Lymphocytes 17 %; Lymphocytes Absolute 13.4 10^3/cmm (1.2-3.4); Monocytes Absolute 2.1 10^3/cmm (0.1-0.6)
[2020-10-17 19:22] LABS: Blastocytes 3 % (0-0)
[2020-10-17 19:24] LABS: Platelet Estimate Decreased (Normal)
== END 2020-10-17 13:41 | disposition home or self-care (01) ==
PROVIDERS: PCP Nurse Practitioner Family; Visit Provider Nurse Practitioner Family
DX: E03.9 Hypothyroidism, unspecified (principal)
CPT/HCPCS: 85007; 85025

== ENCOUNTER 2020-10-18 12:58 | Day surgery (SDC) | payer MEDICARE, MEDICAID, SELFPAY ==
[2020-10-18] VITALS (12 sets, daily range): BP systolic 113–133; BP diastolic 57–78; PULSE 88–98; RESP 16–20; TEMP 36.5–37.3; O2SAT 96–100; BMI 29.4
[2020-10-18 14:02] LABS: Glucose Point of Care 251 mg/dL (70-110)
[2020-10-18 14:10] LABS: Hematocrit 24.2 % (37.0-47.0); Hemoglobin 6.9 g/dL (11.5-15.3)
--- NOTE | 2020-10-18 14:26 | PC.NURSE ---
Called Dr Cook, states he will cover patients care while she is here for transfusion. Report called to SOULEYMANE Woods on [facility]. Transferred via bed with all patients belongings.
[2020-10-18] MEDS: diphenhydrAMINE 25 mg Capsule PO (16:04)
[2020-10-18] MEDS: acetaminophen 325 mg Tablet 650 MG PO (16:04)
[2020-10-18] MEDS: sodium chloride 0.9% (100 ml) 100 ML 150 ML (18:42)
[2020-10-18] MEDS: FUROsemide 10 mg/mL SDV 2mL 20 MG IVP (20:25)
[2020-10-19] VITALS (7 sets, daily range): BP systolic 123–142; BP diastolic 74–79; PULSE 92–106; RESP 16–20; TEMP 36.7–37.9; O2SAT 95–98
== END 2020-10-19 09:28 | disposition home or self-care (01) ==
LOC: OPS 13:15 → MEDSURG 10-21 07:38
PROVIDERS: PCP Nurse Practitioner Family; Visit Provider Nurse Practitioner Family
DX: D64.9 Anemia, unspecified (principal)
CPT/HCPCS: 36416; 36430; 82962; 85014; 85018; 86850; 86900; 86920; 96374; J1940; P9016

== ENCOUNTER 2020-11-05 14:50 | Outpatient (CLI) | payer MEDICARE, MEDICAID, SELFPAY ==
[2020-11-05] VITALS (9 sets, daily range): BP systolic 101–117; BP diastolic 44–56; PULSE 90–104; RESP 18–22; TEMP 37.1–37.2; O2SAT 100
[2020-11-05] MEDS: sodium chloride 0.9% (100 ml) 100 ML ×2 (20:20→22:17)
[2020-11-06 00:01] VITALS: BP 95/65; PULSE 98; RESP 21; TEMP 37.1; O2SAT 100
[2020-11-06 01:45] VITALS: BP 102/70; PULSE 94; RESP 21; TEMP 37; O2SAT 100
--- NOTE | 2020-11-06 09:46 | PC.NURSE ---
patient transferred via ambulance to [facility] [place] after out patient blood was given over night patient stable upon departure
== END 2020-11-06 09:44 | disposition skilled nursing facility (03) ==
LOC: CSU 15:59 → OPCSU 11-06 08:37
PROVIDERS: PCP Nurse Practitioner Family; Visit Provider Nurse Practitioner Family
DX: D64.9 Anemia, unspecified (principal)
CPT/HCPCS: 36415; 36430; 86850; 86900; 86920; P9016